=== PATIENT | female | born 1965 ===

== ENCOUNTER 2021-11-28 01:46 | Outpatient (CLI) | payer OTHER, SELFPAY ==
--- OUTSIDE RECORDS SUMMARY | 2021-11-28 01:50 | XMS_ITS | Clinical Summary ---
:1965 Author Organization [facility] Address [address] [place] [address] Care Team Providers Name Role Phone Ajay Castaneda PA-C Primary Care Provider Allergies No known active allergies Medications Medication Sig Dispensed Refills Start Date End Date Status traZODone (DESYREL) 50 Take 1 Tablet by 90 Tablet 4 08/29/2021 Active mg tablet mouth at bedtime. Active Problems Problem Noted Date Mass of uterus 08/30/2021 Overview: Identified on [place] [facility] [place]. Likely fibroid, but U/S eval was advised to confirm. Ultrasound confirmed fibroid in August. Mass of soft tissue of pelvis 08/30/2021 Overview: From [facility] [place], 2019: ..... 2.2 x 2.9 cm irregular, predomina ntly STIR hyperintense lesion centered in the subcutaneous fat overlying the posterior superior aspect of the right buttocks. This finding is n ot included in the imaged anatomy on any of the other acquired sequences of today 's study. As such, this finding is incompletely evaluated. Possible differe ntial considerations include focally inflamed fat, but a neoplastic lesion ca nnot be excluded based on this appearance. Dedicated MR with and withou t contrast, with inclusion of chemical shift imaging, is recommended for furthe r characterization. Chronic bilateral low back pain 08/30/2021 Low ferritin level 09/13/2020 Overview: Borderline low ferritin. Leukopenia. Con stitutional symptoms.--- Plan: Discuss at appointment in August,, consider iron supplementation Chronic pain syndrome 07/04/2019 Pain in both upper extremities 04/07/2019 Primary hypercoagulable state ([facility]) 02/03/2018 Overview: -factor V Leiden homozygosity and elevat ed D-dimer (285) with FH thrombosis and FVL in her mother. Full thrombosis panel other than prothrombin mutation (no coverage) negative. -no prior hx VTE -Needs low dose anticoagulation to preve nt thrombosis in risk settings in the future, such as surgery, trauma, hospital stay or immobility. We are always happy to help plan treatment in these instances. I advised the patient to inform us in a dvance of any elective surgery where this might be needed. 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 Ken[facility] pe[facility] 08/29/2021 Hospital Encounter Radiology Screening mammogram, encounter for 08/29/2021 Office Visit General Internal Ajay Castaneda, Mass of s oft tissue of pelvis (Primary Dx); Medicine PA-C Chronic bilater al low back pain, unspecified whether sciatica present 08/28/2021 Refill General Internal Ajay Castaneda Medicatio ns Refill Medicine PAAnabela from Last 3 Months Immunizations Name Administration Dates Next Due Covid-19 mRNA Vaccine (PFIZER COVID-19) PF 0.3 ml IM 021, 06/27/2020 (12 yrs+) Influenza Vaccine =>4yo Split IM 10/23/2016 Influenza Vaccine Quad (AFLURIA) PF 0.5 ml IM (3 02/18/2016 yrs+) Influenza Vaccine Quad (FLUZONE) MDV w/preserv 0.5 ml 2019 IM (6 mos+) Influenza Vaccine Quad PF 0.5 ml IM (6 mos+) 01/28/2018 Tdap (BOOSTRIX) Vaccine =>7YO IM 11/26/2017 Surgical History Surgery Date Site/Laterality Comments INTERSTIM to low back for bladder incontinence; co cecile out next month KIDNEY STONE SURGERY 10/23/2017 - 11/21/2017 BREAST FNA Bilateral Medical History Medical History Date Comments Raynaud phenomenon 10/29/2017 Frequent UTI 10/29/2017 Post herpetic neuralgia Chronic abdominal pain Factor V Leiden ([facility]) ([facility]) 10/29/2017 homozygo te. FH VTE Hypertension Primary hypercoagulable state ([facility]) 02/03/2018 -factor V Leiden homozygosity and ([facility]) elevated D-dimer (28 5) with FH thrombosis and FVL i n her mother. Full thrombosis pane l other than prothrombin mutation (no coverage) negative. -no prior hx VTE Family History Medical History Relation Name Comments Ulcerative Colitis Brother Clotting Disorder Daughter Factor V Leide n Clotting Disorder Daughter Factor V Leide n *Other(comment) Father raynauds Arthritis-Osteo Father Lung Cancer Father Cancer Maternal Grandfather Asthma Maternal Grandmother Breast Cancer Maternal Grandmother in her 50s Arthritis-Osteo Mother Breast Cancer Mother Clotting Disorder Mother Factor V leide n and thrombosis Dementia Paternal Grandfather High Blood Pressure Paternal Grandfather Osteoporosis Paternal Grandmother Rheumatologic Disease Paternal Grandmother Relation Name Status Comments Brother Alive Daughter Alive Daughter Alive Father Maternal Grandfather Maternal Grandmother Mother Alive Paternal Grandfather Paternal Grandmother Social History Tobacco Use Types Packs/Day Years Used Date Never Smoker Smokeless Tobacco: Never Used Tobacco Cessation: Counseling Given: No Alcohol Use Standard Drinks/Week Comments Yes 0 (1 standard drink = 0.6 oz pure alcoho l) 1 wine with dinner Alcohol Habits Answer Date Recorded How often do you have a drink containing alcohol? Not asked How many drinks containing alcohol do you have on a Not aske d typical day when you are drinking? How often do you have six or more drinks on one Not asked occasion? Comment: 1 wine with dinner 01/24/2018 Food Insecurity Answer Date Recorded Within the past 12 months, you worried that your food would Never true 08/26/2018 run out before you got money to buy more. Within the past 12 months, the food you bought just didn't N ever true 08/26/2018 last and you didn't have money to get more. Sex Assigned at Date Recorded Female 03/12/2021 10:24 EST Obstetrics History Grav Para Term Pre Abrt (TAB) (SAB) (Ect) Mult Lvng Comments 4 4 Date Outcome GA Total Labor/2nd/3rd Weight Sex Delivery Anes PTL Vida A 1 A5 Name Clin Labor Para Para Para Para Last Filed Vital Signs Vital Sign Reading Time Taken Comments Blood Pressure 136/61 08/29/2021 0932 EDT Pulse 74 08/29/2021 0932 EDT Temperature 37.1 ??C (98.7 ??F) 08/29/2021 0932 EDT Respiratory Rate 16 08/29/2021 0932 EDT Oxygen Saturation 97% 02/07/2018 1520 EST Inhaled Oxygen Concentration - - Weight 55.8 kg (123 lb) 08/29/2021 0932 EDT Height 159.3 cm (5' 2.72) 09/16/2020 1001 EDT Body Mass Index 21.98 09/16/2020 1001 EDT Plan of Treatment Health Maintenance Due Date Last Done Comments Hepatitis C Screen 1965 HIV Screening 1982 Advance Directive 1984 Barium Enema (Colon Cancer 2011 Screening) Fecal Blood Test (Colon Cancer 2011 Screening) Fecal DNA (Colon Cancer Screening) 2011 Sigmoidoscopy (Colon Cancer 2011 Screening) Shingles Immunization (1 of 2) 2016 Social Determinants Of Health 08/27/2019 08/26/2018 ([facility]) Preventive Care Visit 11/27/2019 11/26/2017 COVID-19 Vaccine (3 - Booster for 09/12/2020 07/18/2020, Pfizer series) Behavioral Health Screen 05/08/2021 05/08/2020, 11/26/2017 Complete Blood Count (CBC) 09/11/2021 09/11/2020, 8, 03/23/2016, Additional history exists Comprehensive Metabolic Profile 09/11/2021 09/11/2020, 1204/2017, (CMP) 10/29/2017, Additional history exists Influenza Immunization (Adult) 11/22/2021 12/22/2019, 01/28, (#1) 10/23/2016, Additional history exists Cervical Cancer Screening 08/27/2023 08/26/2018, 02/18/2015 , 07/31/2011, Additional history exists Breast Cancer Screening 08/30/2023 08/29/2021, 03/25/2020, 03/06/2019, Additional history exists Lipid Profile Screening 09/11/2025 09/11/2020, 10/29/2017, (Cholesterol) 02/21/2015, Additional history exists Tetanus (Adult) Immunization 11/27/2027 11/26/2017 Colonoscopy (Colon Cancer 12/07/2027 12/06/2017 Screening) Colorectal Cancer Screening 12/07/2027 Pertussis (Adult) Immunization Completed 11/26/2017 Procedures Procedure Name Priority Date/Time Associated Diagnosis Comme nts MA BREAST SCREENING Routine 08/29/2021 13:05 Screening mammogr am, Results for this ARETHA BILATERAL EDT encounter for procedure ar e in the results section. from Last 3 Months Results MA BREAST SCREENING ARETHA BILATERAL (08/29/2021 13:05 EDT) Anatomical Region Laterality Modality Breast Bilateral Mammography Specimen Impressions [facility] - 08/29/2021 13:59 EDT Benign, no evidence of malignancy. RECOMMENDATION: Routine screening mammog lisa is recommended. Due to the patient's extreme breast dens ity, we recommend annual screening breast ultrasound in addition to mammography. OVERALL ASSESSMENT: BI-RADS 2: Benign These results will be communicated to yo ur patient via a lay letter from Radiology. If any additional imaging is needed we will contact your patient directly. I have personally reviewed the images an d the above interpretation and agree with the findings. Narrative [facility] - 08/29/2021 13:59 EDT MA BREAST SCREENING ARETHA BILATERAL ??08/29/2021 1:00 PM History: routine screening Comparison: ??Comparison has been made t o previous images. Technique: Routine 3D tomosynthesis with synthesized 2D views with CAD Breast Composition: The breast tissue is extremely dense, which lowers the sensitivity of mammography. Bilateral Breast Findings: ??No signific ant masses, calcifications or other abnormalities are seen. Stable calcifications bilaterally. Procedure Note Vira Uriarte MD - 08/29/2021 MA BREAST SCREENING ARETHA BILATERAL 022 1:00 PM History: routine screening Comparison: Comparison has been made to previous images. Technique: Routine 3D tomosynthesis with synthesized 2D views with CAD Breast Composition: The breast tissue is extremely dense, which lowers the sensitivity of mammography. Bilateral Breast Findings: No significan t masses, calcifications or other abnormalities are seen. Stable calcifications bilaterally. IMPRESSION Benign, no evidence of malignancy. RECOMMENDATION: Routine screening mammog lisa is recommended. Due to the patient's extreme breast dens ity, we recommend annual screening breast ultrasound in addition to mammography. OVERALL ASSESSMENT: BI-RADS 2: Benign These results will be communicated to yo ur patient via a lay letter from Radiology. If any additional imaging is needed we will contact your patient directly. I have personally reviewed the images an d the above interpretation and agree with the findings. Performing Organization Address City/State/ZIP Code Phon e Number [facility] from Last 3 Months Insurance Payer Benefit Plan / Subscriber ID Effective Dates Phone Addre ss Type Group [employer] [place] [employer] [id number] 2018-Present [address] [employer] [place] [id number] Heike Salguero Personal/Family Self 1965 [address]Home) [place] [address] Heike Salguero Personal/Family Self 1965 [address] [place] [address] Advance Directives For more information, please contact: [phone] Documents on File Type Date Recorded 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 Not Discussed Care Teams Asset Liability Analyst Relationship Specialty Start Date End Date Ajay Castaneda PA-C PCP - General Internal Medicine - Primary 07/31/20 [address] [place] [address]
--- OUTSIDE RECORDS SUMMARY | 2021-11-28 01:50 | XMS_ITS | Encounter Summary ---
:1965 Author Organization [facility] Address [address] [place] [address] Care Team Providers Name Role Phone Ajay Castaneda PA-C Primary Care Provider Reason for Referral PT/OT/ST (Routine/Next Available) - Closed Specialty Diagnoses / Procedures Referred By Contact Refer red To Contact Diagnoses Chronic low back pain, unspecified back pain laterality, unspecified whether sciatica present Ajay Castaneda PA-C [address] [place] [address] Referral ID Status Reason Start Date Expiration Date Visits V isits Requested Authorized [id number] Closed Specialty 10/12/2021 1 1 Services Required Question Answer Reason for Request: chronic low back pain Comments Please contact me at my office in [place] if you need more information about Heike's medical history, of if you n eed guidance on treatment of her back pain. Ajay [facility]OMON [address] [facility] [place]. [phone]. Reason for Visit Reason Onset Date Comments Referral Request 09/30/2021 Physical Therapy 09/30/2021 Encounter Details Date Type Department Care Team Description 09/30/2021 Telephone [facility] Ajay Castaneda Referra l Request; Adult Primary [facility] - [facility] [place] [address] [place], [place] [phone] Social History Tobacco Use Types Packs/Day Years Used Date Never Smoker Smokeless Tobacco: Never Used Alcohol Use Standard Drinks/Week Comments Yes 0 [...] at Date Recorded Female 03/12/2021 10:24 EST documented as of this encounter Functional Status Functional Status Response Date of Assessment Because of a physical, mental, or emotional condition, Yes 01/24/2018 does this person have difficulty doing errands alone such as visiting a doctor's office or shopping? Cognitive Status Response Date of Assessment Because of a physical, mental, or emotional condition, Yes 01/24/2018 does this person have serious difficulty concentrating, remembering, or making decisions? documented as of this encounter Miscellaneous Notes Telephone Encounter - Ajay Castaneda PA-C - 10/12/2021 1436 EDT I completed the PT order. Please mail to Heike as requested. Thanks AjayElectronthad signed by Ajay Castaneda PA-C at 10/12/2021 14:37 EDT Telephone Encounter - FrancisApple - 09/30/2021 1307 EDT Pt saw Ajay on 08.29.21. In his notes he said that he would order PT for the pt. She is not sure where she would like to go yet. She would like the referral mailed to her & she will take it to wherever she decides to go. Referral teed up in this encounter, if ok please complete & sign. PSS: When/if done please mail the referral to the pt. documented in this encounter Plan of Treatment Scheduled Referrals Name Type Priority Associated Order Schedule Diagnoses AMB CONS/FOLLOW Outpatient Routine/Next Chronic low back Expected : UP PHYSICAL Referral Available pain, unspecified 10/19/2021 THERAPY - back pain (Approximate), OUTSIDE OF laterality, Expires: NETWORK unspecified whether 10/01/19 23 sciatica present documented as of this encounter Visit Diagnoses Diagnosis Chronic low back pain, unspecified back pain laterality, unspecified whether sciatica present - Primary documented in this encounter Care Teams Overnight Babysitter Relationship Specialty Start Date End Date Ajay Castaneda PA-C PCP - General Internal Medicine - Primary 07/31/20 [address] [place] [phone] documented as of this encounter
--- OUTSIDE RECORDS SUMMARY | 2021-11-28 01:51 | XMS_ITS | Encounter Summary ---
:[address] [facility] Address [address] [place] [address] Care Team Providers Name Role Phone Ajay Castaneda PA-C Primary Care Provider Reason for Visit Reason Onset Date Comments Other 08/30/2021 Needs blood test at [facility]. Please send/fax lab orders to [facility] haritha ontact patient. Encounter Details Date Type Department Care Team Description 08/30/2021 Telephone [facility] Ajay Castaneda Other ( Needs blood test Adult Primary Care - [facility] at [facility]. [place] [address] Please send/fax lab [address] [place], [place] [phone] then contact patient.) [phone] Social History Tobacco Use Types Packs/Day Years [...] this encounter Miscellaneous Notes Telephone Encounter - Isatu Watt - 10/06/2021 1315 EDT Hi Ajay, Referral has been sent to ortho and labs sent as well. The referral for the MRI is still in the que.Did you want me to close it for now? I was denied by insurance and would require a peer to peer. Do you want to close it for now? Maybe ortho will be able to get an MRI if appropriate? elephone Encounter - Isatu Watt - 09/18/2021 1326 EDT Referral is still pending in referral que. PA has been denied for the MRI. Did you want to look intofurther or wait at this time. Also, the orthopedica referral was dependant on the referral as well. Hold/close for now or submit the ortho referral? elephone Encounter - Isatu Watt - 09/03/2021 0722 EDT Patient is aware we are working on prior auth. Mailed lab orders to patient as well PA has been denied. Letter in your mailbox for review and follow up elephone Encounter - Ajay Castaneda PA-C - 08/30/2021 1235 EDT I saw this patient at the office on August 29. She needs an MRI with contrast done at [facility]. I placed those orders. Before she gets the MRI, she will need blood test done, especially to check her kidney functions. I ordered those tests on August 30, to be done at end external site. The patient [place] near [place]. Please fax the labs to the [facility] lab so that she can get the tests donethere. Also, I suggest that we print and mail a copy of the orders to the patient so that she can take themwith her to the lab. Then, please call her or send her a [employer] message letting her know that the lab orders have been sent to [facility]. Thanks in advance, Ajay documented in this encounter Plan of Treatment Not on filedocumented as of this encounter Visit Diagnoses Not on filedocumented in this encounter Care Teams Deckhand Sponge Boat Relationship Specialty Start Date End Date Ajay Castaneda PA-C PCP - General Internal Medicine - Primary 07/31/20 [address] [place] [phone] documented as of this encounter
--- OUTSIDE RECORDS SUMMARY | 2021-11-28 01:51 | XMS_ITS | Encounter Summary ---
:1965 Author Organization [facility] Address [address] [place] [address] Care Team Providers Name Role Phone Rosalie Cannon PA-C Primary Care Provider Reason for Visit Reason Onset Date Comments Medications Refill 10/10/2020 Encounter Details Date Type Department Care Team Description 10/10/2020 Refill [facility] Adult Rosalie Cannon PA-C Medications Refill Primary Care - [facility] [address] [place] [phone] (Wo rk) Social History Tobacco Use Types Packs/Day Years [...] at Date Recorded Female 03/12/2021 10:24 EST COVID-19 Exposure Response Date Recorded In the last month, have you been in contact with No / Unsure 09/11/2020 8:23 EDT someone who was confirmed or suspected to have Coronavirus / COVID-19? documented as of this encounter Functional Status [...] making decisions? documented as of this encounter Ordered Prescriptions Prescription Sig Dispensed Refills Start Date End Date dextroamphetamine-amphetam Take 1 Tablet by 28 Tablet 0 11/14/2020 ine (ADDERALL) 15 mg mouth daily for 28 tablet days. Daily Max: 15 mg dextroamphetamine-amphetam Take 1 Tablet by 28 Tablet 0 12/12/2020 ine (ADDERALL) 15 mg mouth daily for 28 tablet days. Daily Max: 15 mg dextroamphetamine-amphetam Take 1 Tablet by 28 Tablet 0 01/03/2021 ine (ADDERALL) 15 mg mouth daily for 28 tablet days. Daily Max: 15 mg dextroamphetamine-amphetam Take 1 Tablet by 7 Tablet 0 10/10/2020 ine (ADDERALL) 15 mg mouth daily for 7 tablet days. Daily Max: 15 mg documented in this encounter Miscellaneous Notes Telephone Encounter - Rosalie Cannon PA-C - 10/11/2020 1058 EDT I reviewed records. We had meant to do controlled substance agreement at last visit, and may have done one, but it is not yet scanned into records. At next visit, will check again and do all necessary paperwork. Rosalie Speandrese Telephone Encounter - Marissa Howard RN - 10/10/2020 1353 EDT Pended next 3 mos for rosalie cannon starting 10/17 elephone Encounter - Marissa Howard RN - 10/10/2020 1149 EDT Call to pt States she would like refill done today or tomorrow. with rosalie being out today, she would like covering provider to send in 7 days of rx as last time she had issues getting rx filled when he was out pended for keyes Please send back to triage when signed and we will pend 3 mos supply for rosalie upon his return tomorrow, per pt request elephone Encounter - Gilda Goodson - 10/10/2020 0918 EDT Requested Prescriptions Pending Prescriptions Disp Refills ??? dextroamphetamine-amphetamine (ADDERALL) 15 mg tablet 28 Tablet 0 Sig: Take 1 Tablet by mouth daily for 28 days. Daily Max: 15 mg Patient requested 3 prescription sent for 3 months [facility] - [address] Confirmed Pharmacy? Yes Patient out of medication? Yes: Needs Refill Now Last Refill Date: 09/10/2020 Refills left? (explain exceptions requiring early refill) No Recent Visits Date Type Provider Dept 09/16/20 Office Visit Rosalie Cannon PA-C [facility] 08/05/20 Office Visit Rosalie Cannon PA-C [place] [facility] 05/08/20 Office Visit Mere Gonzales MD [facility] 04/25/20 Office Visit Zenobia Hawkins PA-C [place] [facility] Showing recent visits within past 540 days with a meds authorizing provider and meeting all other requirements Future Appointments Date Type Provider Dept 12/16/20 Appointment Rosalie Cannon PA-C [facility] Showing future appointments within next 150 days with a meds authorizing provider and meeting all other requirements Future appointment: Already Scheduled Gilda Goodson 10/10/2020 9:19 documented in this encounter Plan of Treatment Not on filedocumented as of this encounter Visit Diagnoses Not on filedocumented in this encounter Discontinued Medications Medication Sig Discontinue Reason Start Date End Date dextroamphetamine-amphet Take 1 Tablet by Reorder 09/10/2020 10/10/2020 amine (ADDERALL) 15 mg mouth daily for 28 tablet days. Daily Max: 15 mg dextroamphetamine-amphet Take 1 Tablet by Reorder 10/10/2020 10/10/2020 amine (ADDERALL) 15 mg mouth daily for 7 tablet days. Daily Max: 15 mg documented as of this encounter Care Teams Iron Worker Relationship Specialty Start Date End Date Rosalie Cannon PA-C PCP - General Internal Medicine - Primary 07/31/20 [address] [place] [phone] documented as of this encounter
--- OUTSIDE RECORDS SUMMARY | 2021-11-28 01:51 | XMS_ITS | Encounter Summary ---
:1965 Author Organization [facility] Address [address] [place] [address] Care Team Providers Name Role Phone Ajay Castaneda PA-C Primary Care Provider Reason for Visit Reason Onset Date Comments Medications Refill 08/06/2020 Encounter Details Date Type Department Care Team Description 08/06/2020 Refill [facility] Adult Ajay Castaneda PA-C Medications Refill [place] - [place] [address] [facility] [place] [phone] (Wo rk) Social History Tobacco Use Types [...] making decisions? documented as of this encounter Plan of Treatment Not on filedocumented as of this encounter Visit Diagnoses Not on filedocumented in this encounter Care Teams Assistant Boiler Operator Relationship Specialty Start Date End Date Ajay Castaneda PA-C PCP - General Internal Medicine - Primary 07/31/20 [address] [place] [phone] documented as of this encounter
--- OUTSIDE RECORDS SUMMARY | 2021-11-28 01:51 | XMS_ITS | Encounter Summary ---
:1965 Author Organization [facility] Address [address] [place] [address] Care Team Providers Name Role Phone Mere Gonzales MD Primary Care Provider Encounter Details Date Type Department Care Team Description 08/03/2019 Travel Social History Tobacco Use Types Packs/Day Years [...] been in contact with No / Unsure 08/03/2019 13:49 EDT someone who was confirmed or suspected [...] on filedocumented in this encounter Care Teams Resource Room Special Education Teacher Relationship Specialty Start Date End Date Mere Gonzales MD PCP - General 10/05/17 07/30/20 [address] [place] [phone] documented as of this encounter
--- OUTSIDE RECORDS SUMMARY | 2021-11-28 01:51 | XMS_ITS | Encounter Summary ---
:1965 Author Organization [facility] Address [address] [place] [address] Care Team Providers Name Role Phone Ajay Castaneda PA-C Primary Care Provider Encounter Details Date Type Department Care Team Description 09/11/2020 Phlebotomy Only [facility] ADHD, predominantly inattentive type; Laboratory Services - Hypert ension, unspecified type; [facility] Screening for blood disease; 0 [facility] Lipid screening; [place] [address] Other polyneuropathy; [phone] Chronic pain sy ndrome; Pain in both up per extremities; Chronic bilater al low back pain, unspecified whether sciatica present; Bilateral hip p ain Social History Tobacco Use Types Packs/Day Years [...] Not on filedocumented as of this encounter Procedures Procedure Name Priority Date/Time Associated Diagnosis Comme nts SPEP WITH Routine 09/11/2020 8:32 Other polyneuropathy Resu lts for this IMMUNOTYPING EDT procedure are i n PERFORMABLE the results section. LYME AB Routine 09/11/2020 8:32 Chronic pain syn drome Results for this EDT Pain in both upper procedure are in extremities the results Other polyneuropathy section . SED RATE Routine 09/11/2020 8:32 Chronic pain syn drome Results for this EDT Pain in both upper procedure are in extremities the results Bilateral hip pain section. COMPLETE BLOOD COUNT Routine 09/11/2020 8:32 ADHD, predominant ly Results for this EDT inattentive type procedure are in Hypertension, the results unspecified type section. Screening for blood disease SPEP WITH Routine 09/11/2020 8:32 Other polyneuropathy Resu lts for this IMMUNOTYPING EDT procedure are i n the results section. C REACTIVE PROTEIN Routine 09/11/2020 8:32 Chronic pain syndrome Results for this EDT Pain in both upper procedure are in extremities the results Other polyneurop athy section. Chronic bilateral low back pain, unspecified whether sciatica present PROTEIN, TOTAL Routine 09/11/2020 8:32 Other polyneuropathy EDT FERRITIN Routine 09/11/2020 8:32 Chronic pain syn drome Results for this EDT Pain in both upper procedure are in extremities the results Bilateral hip pain section. VITAMIN B12 Routine 09/11/2020 8:32 Other polyneuropathy Resu lts for this EDT procedure are i n the results section. CK Routine 09/11/2020 8:32 Chronic pain syn drome Results for this EDT Pain in both upper procedure are in extremities the results Chronic bilateral low sectio n. back pain, unspecified whether sciatica present LIPID PROFILE Routine 09/11/2020 8:32 Lipid screening Results for this (INCLUDES EDT procedure are i n CHOLESTEROL, the results TRIGLYCERIDES, HDL, section. LDL) COMPREHENSIVE Routine 09/11/2020 8:32 ADHD, predominantly Resu lts for this METABOLIC PANEL (CMP) EDT inattentiv e type procedure are in Hypertension, the results unspecified type section. Screening for blood disease documented in this encounter Results SPEP WITH IMMUNOTYPING PERFORMABLE (09/11/2020 8:32 EDT) Albumin % 64.0 55.8 - 66.1 % [facility] Alpha-1 % 3.8 2.9 - 4.9 % [facility] Alpha-2 % 7.9 7.1 - 11.8 % [facility] Beta % 9.6 8.4 - 13.1 % [facility] Gamma % 14.7 11.1 - 18.8 % [facility] SPEP Comment No apparent [facility] monoclonal protein LABORATORY seen on serum SERVICES electrophoresisCom ment: See scanned/supplement chris report. Immunotyping, Current [facility] Serum Interpretation: LABORATORY Negative for SERVICES monoclonal immunoglobulins. Reviewed by: Obdulio Jordan MD 09/12/20 13:40 Total Protein 7.0 6.3 - 8.2 [facility] g/dL LABORATORY SERVICES Specimen Blood - Venous blood (substance) Narrative This result has an attachment that is no t available. Performing Organization Address City/State/ZIP Code Phon e Number [facility] [address] [place] [address] SERVICES PROTEIN, TOTAL (09/11/2020 8:32 EDT) Specimen Blood - Venous blood (substance) Performing Organization Address City/State/ZIP Code Phon e Number [facility] [address] [place] [address] SERVICES FERRITIN (09/11/2020 8:32 EDT) Pathologist Sig nature Ferritin 15 10 - 291 ng/mL [facility] ORY SERVICES Specimen Blood - Venous blood (substance) Performing Organization Address [facility]/ZIP Code Phon e Number [facility] [address] [place] [address] SERVICES SED. RATE:WESTERGREN (09/11/2020 8:32 EDT) Pathologist Sig nature Sed Rate 1 0 - 30 mm/hr [facility] Y SERVICES Specimen Blood - Venous blood (substance) Performing Organization Address [facility]/ZIP [facility] Phon e Number [facility] [address] [place] [address] SERVICES C REACTIVE PROTEIN (09/11/2020 8:32 EDT) Pathologist Sig nature C-Reactive Protein <7.0 <10.0 mg/L [facility] Specimen Blood - Venous blood (substance) Performing Organization Address [facility] Phon e Number [facility] [address] [place] [address] SERVICES LYME AB (09/11/2020 8:32 EDT) Pathologist Sig nature Lyme Ab Negative Negative [facility] SERVICES Specimen Blood - Venous blood (substance) Performing Organization Address [facility]/ZIP [facility] Phon e Number [facility] [address] [place] [address] SERVICES CK (09/11/2020 8:32 EDT) Pathologist Sig nature CK 103 30 - 135 U/L [facility] SERVICES Specimen Blood - Venous blood (substance) Performing Organization Address [facility]/ZIP [facility] Phon e Number [facility] [address] [place] [address] SERVICES (ABNORMAL) VITAMIN B12 (09/11/2020 8:32 EDT) Pathologist Sig nature Vitamin B12 920 (H) 211 - 911 pg/mL [facility] Specimen Blood - Venous blood (substance) Performing Organization Address [facility]/ZIP [facility] Phon e Number [facility] [address] [place] [address] SERVICES LIPID PROFILE (INCLUDES CHOLESTEROL, TRIGLYCERIDES, HDL, LDL) (09/11/2020 8:32 EDT) Cholesterol 211 See Note [facility] Comment: mg/dL [facility] Acceptable: ?<200 mg/dL SERVICES Borderline High: 200-239 mg/dL High: ?> or = 240 mg/dL HDL 86 See Note [facility] Comment: mg/dL [facility] Low: ? <40 mg/dL SERVICES Normal: ??40-60 mg/dL High: ?>60 mg/dL LDL, Calculated 113 See Note [facility] Comment: mg/dL [facility] Optimal: ? <100 mg/dL SERVICES Near Optimal: ?100-129 mg/dL Borderline High: 130-159 mg/dL High: ?160-189 mg/dL Very High: ? > or = 190 mg/dL Triglyceride 58 See Note [facility] Comment: mg/dL [facility] Normal: ? <150 mg/dL SERVICE S Borderline High: ??150 - 199 mg/dL High: ? 200 - 499 mg/dL Very High: ?> or = 500 mg/dL Chol/HDL Ratio 2.5Comment: No See Note [facility] reference range [facility] has been SERVICES established for CHOL/HDL ratio. Non HDL Cholesterol 125 See Note [facility] Comment: mg/dL [facility] Desirable: ?<130 mg/dL SERVICES Borderline High: ??130-159 mg/dL High: ? 160-189 mg/dL Very High: ?> or = 190 mg/dL Specimen Blood - Venous blood (substance) Performing Organization Address City/State/ZIP Code Phon e Number [facility] [address] [place] [address] SERVICES (ABNORMAL) COMPLETE BLOOD COUNT (09/11/2020 8:32 EDT) Pathologist Sig nature WBC 3.29 (L) 4.00 - 12.40 K/cmm [facility] RBC 4.81 3.86 - 5.04 M/cmm [facility] Hemoglobin 14.8 11.6 - 15.2 gm/dL [facility] HCT 44.3 34.9 - 44.4 % [facility] MCV 92 81 - 98 fl [facility] MCH 30.8 26.7 - 33.3 pg [facility] MCHC 33.4 32.1 - 35.9 gm/dL [facility] RDW-CV 12.7 <14.7 % [facility] RDW-SD 43.1 <50.4 fl [facility] PLT 321 141 - 377 K/cmm [facility] MPV 9.5 9.5 - 12.7 fl [facility] Specimen Blood - Venous blood (substance) Performing Organization Address [facility] Phon e Number [facility] [address] [place] [address] SERVICES COMPREHENSIVE METABOLIC PANEL (CMP) (09/11/2020 8:32 EDT) Sodium 139 136 - 145 [facility] mEq/L [facility] Potassium 4.8 3.5 - 5.0 [facility] mEq/L [facility] Chloride 101 96 - 110 [facility] mEq/L [facility] CO2 Total 30 22 - 32 mEq/L [facility] Glucose 83 70 - 100 [facility] mg/dL [facility] BUN 17 10 - 26 mg/dL [facility] Creatinine 0.67 0.52 - 1.04 [facility] mg/dL [facility] eGFR 100Comment: eGFR >60 [facility] calculated using mL/min/1.73m2 [facility] CKD-EPI equation SERVICES for non- Americans. Multiply eGFR by 1.16 for patients. Total Protein 7.0 6.3 - 8.2 [facility] g/dL [facility] Albumin 4.4 3.4 - 4.9 [facility] g/dL [facility] Alkaline 79 38 - 126 U/L [facility] Phosphatase [facility] AST 20 15 - 46 U/L [facility] ALT 13 <35 U/L [facility] Bilirubin, Total <0.5 <1.4 mg/dL [facility] Calcium 10.0 8.5 - 10.5 [facility] mg/dL [facility] Calculated Calcium 9.7 8.5 - 10.5 [facility] mg/dL [facility] Specimen Blood - Venous blood (substance) Performing Organization Address City/[facility]/ZIP Code Phon e Number [facility] [address] [place] [address] SERVICES documented in this encounter Visit Diagnoses Diagnosis ADHD, predominantly inattentive type Attention deficit disorder without menti on of hyperactivity Hypertension, unspecified type Screening for blood disease Screening for unspecified disorder of bl ood and blood-forming organs Lipid screening Screening for lipoid disorders Other polyneuropathy Chronic pain syndrome Pain in both upper extremities Chronic bilateral low back pain, unspeci fied whether sciatica present Bilateral hip pain Pain in joint, pelvic region and thigh documented in this encounter Care Teams Machine Icer Relationship Specialty Start Date End Date Ajay Castaneda PA-C PCP - General Internal Medicine - Primary 07/31/20 [address] [place] [phone] documented as of this encounter
--- OUTSIDE RECORDS SUMMARY | 2021-11-28 01:51 | XMS_ITS | Encounter Summary ---
:1965 Author Organization [facility] Address [address] [place] [address] Care Team Providers Name Role Phone Mere Gonzales MD Primary Care Provider Reason for Visit Reason Onset Date Comments Results 04/26/2020 Encounter Details Date Type Department Care Team Description 04/26/[address] [facility] Adult Zenobia Hawkins PA-C Results Primary Care - [place] [address] [place] [address] Social History Tobacco Use Types Packs/Day Years [...] Sig Dispensed Refills Start Date End Date metroNIDAZOLE (METROGEL) Place 37.5 mg 70 g 0 04/27/19 21 08/06/2020 0.75 % vaginal gel vaginally daily. documented in this encounter Miscellaneous Notes Telephone Encounter - Fidelina Bledsoe RN - 04/26/2020 1706 EST Left message requesting call back. Coravint sent as well. elephone Encounter - Zenobia Hawkins PA-C - 04/26/2020 1703 EST Please let her know the vaginitis culture came back negative for any yeast infection but it cannot rule out the presence of bacterial vaginosis. Bacterial vaginosis it is an overgrowth of the normal bacteria in the vagina that can cause vaginal discharge and discomfort. As discussed at her office visit it is not an STD. I have prescribed MetroGel that she can apply intravaginally at night for the next 5 nights. She should avoid any alcohol while taking this medication. There does not need to be a test of cure after treatment. documented in this encounter Plan of Treatment Not on filedocumented as of this encounter Visit Diagnoses Not on filedocumented in this encounter Care Teams Air And Hydronic Balancing Technician Relationship Specialty Start Date End Date Mere Gonzales MD PCP - General 10/05/17 07/30/[address] [place] [phone] documented as of this encounter
--- OUTSIDE RECORDS SUMMARY | 2021-11-28 01:51 | XMS_ITS | Encounter Summary ---
:1965 Author Organization [facility] Address [address] [place] [address] Care Team Providers Name Role Phone Mere Gonzales MD Primary Care Provider Reason for Referral Radiology Services (Routine) - Authorization Not Required Specialty Diagnoses / Procedures Referred By Contact Refer red To Contact Diagnoses Inconclusive mammogram Encounter for other screening for malignant neoplasm of breast Amaya Rand PA-C Procedures US ABUS BREAST SCREENING BILATERAL US BREAST SCREENING ONLY BILATERAL [address] [phone] Referral ID Status Reason Start Expiration Visits Visits Date Date Requested Authorized [id number] Authorization Not 08/11/2019 1 1 Required Reason for Visit Radiology Services (Routine) - Authorization Not Required Specialty Diagnoses / Procedures Referred By Contact Refer red To Contact Diagnoses Inconclusive mammogram Encounter for other screening for malignant neoplasm of breast Amaya Rand PA-C Procedures US ABUS BREAST SCREENING BILATERAL US BREAST SCREENING ONLY BILATERAL [address] [phone] Referral ID Status Reason Start Expiration Visits Visits Date Date Requested Authorized [id number] Authorization Not 08/11/2019 1 1 Required Encounter Details Date Type Department Care Team Description 03/25/2020 Hospital Encounter [facility] onclusive mammogram; Breast Imaging - [facility] Encou nter for other screening for malignant neoplasm of breast [address] [address] Social History Tobacco Use Types Packs/Day Years [...] been in contact with No / Unsure 03/25/2020 10:53 EST someone who was confirmed or suspected to [...] making decisions? documented as of this encounter Medications at Time of Discharge Medication Sig Dispensed Refills Start Date End Date amLODIPine (NORVASC) 5 mg TAKE ONE TABLET BY 90 Tab 3 08/29/2021 tablet MOUTH EVERY DAY ascorbic acid, vitamin C, Take 500 mg by 0 08/29/2021 (VITAMIN C) 500 mg tablet mouth daily. aspirin (ASPIRIN LOW DOSE) Take 81 mg by mouth 0 09/16/2020 81 mg EC tablet daily. cannabidiol, CBD, Take by mouth. CBD 0 04/25/2020 (CANNABIDIOL ORAL) Oil cyanocobalamin (VITAMIN Take 500 mcg by 0 08/29/2021 B-12) 500 mcg tablet mouth daily. dextroamphetamine-amphetam Take 1 Tab by mouth 28 Tab 0 01/25/2020 04/01/2020 ine (ADDERALL) 15 mg daily for 28 days. tablet Daily Max: 15 mg dextroamphetamine-amphetam Take 1 Tab by mouth 28 Tab 0 08/18/2019 04/03/2020 ine (ADDERALL) 15 mg daily for 28 days. tablet Daily Max: 15 mg ergocalciferol, vitamin Take by mouth. 0 08/05/2020 D2, (VITAMIN D ORAL) gabapentin (NEURONTIN) 300 Take 1 Cap by mouth 270 Cap 3 05/09/2019 04/25/2020 mg capsule every morning AND 2 Caps at bedtime. hydrOXYzine (ATARAX) 25 mg Take 1-2 tabs BID 180 Tab 3 01/03/2021 tablet prn itching or anxiety magnesium oxide (MAG-OX) Take 400 mg by 0 08/05/2020 400 mg (241.3 mg mouth daily. magnesium) tablet oxybutynin (DITROPAN-XL) 5 TAKE ONE TABLET BY 90 Tab 3 0 09/18/2019 09/16/2020 mg CR tablet MOUTH EVERY DAY traZODone (DESYREL) 50 mg TAKE ONE TABLET BY 90 Tab 0 06/26/2020 tablet MOUTH AT BEDTIME venlafaxine (EFFEXOR-XR) TAKE ONE CAPSULE BY 90 Cap 0 05/08/2020 37.5 mg XR capsule MOUTH EVERY DAY documented as of this encounter Discharge Disposition Disposition Code Departure Means Destination Home or Self Care documented in this encounter Plan of Treatment Not on filedocumented as of this encounter Procedures Procedure Name Priority Date/Time Associated Diagnosis Comme nts US ABUS BREAST Routine 03/25/2020 11:45 Inconclusive Results f or this SCREENING BILATERAL EST mammogram procedure are in Encounter for other the resu lts screening for section. malignant neoplasm of breast documented in this encounter Results US ABUS BREAST SCREENING BILATERAL (03/25/2020 11:45 EST) Anatomical Region Laterality Modality Breast Bilateral Ultrasound Specimen Narrative [facility] - 03/25/2020 16:14 EST US ABUS BREAST SCREENING BILATERAL ??03/25/2020 10:45 AM Clinical History/Comments: Screening. ??Dense breast tissue on mamm ogram. Comparisons: Mammography most recently performed in J 2019 Technique: 3-D automated breast ultrasound was perf ormed using the 6-15 MHz GE Invenia ABUS device. All 4 quadrants and the subareolar regions were examined. These images and multiplanar reformats were reviewed on a dedicated workstation. Findings Right Breast: Background echotexture: Heterogeneous ba ckground echotexture No suspicious ultrasound findings are id entified. Findings Left Breast: Background echotexture: Heterogeneous ba ckground echotexture No suspicious ultrasound findings are id entified. Impression Right Breast: Negative, BI-RADS Category 1. Impression Left Breast: Negative, BI-RADS Category 1. Recommendation Bilateral Breasts: No specific sonographic evidence of rena gnancy in either breast. Annual screening mammography is recommended, which is currently due. The patient is actually due for bilateral diagnostic mammograms to f ollow calcifications in both breasts. We would recommend that this be scheduled shortly. Additionally, if ongoing supplemental whole breast screening ultrasound is desired, this could next be performed in March 2021. Overall Assessment: BI-RADS Category Assessment 1: Negative. The patient will be notified of her [address] [facility] imaging results via a lay letter from Radiology. ??Radiology will contact the patient directly regarding any findings which require additional imaging. Performing Organization Address City/State/ZIP Code Phon e Number [facility] documented in this encounter Visit Diagnoses Diagnosis Inconclusive mammogram Encounter for other screening for malign ant neoplasm of breast documented in this encounter Care Teams Asparagus Buncher Relationship Specialty Start Date End Date Mere Gonzales MD PCP - General 10/05/17 07/30/20 [address] [place] [phone] documented as of this encounter
--- OUTSIDE RECORDS SUMMARY | 2021-11-28 01:51 | XMS_ITS | Encounter Summary ---
:1965 Author Organization [facility] Address [address] [place] [address] Care Team Providers Name Role Phone Mere Gonzales MD Primary Care Provider Reason for Visit Reason Onset Date Comments Orders (Non Pre-visit) 11/09/2019 Encounter Details Date Type Department Care Team Description 11/09/2019 [facility]phone [facility] Sarika Brasher rs (Non Pre-visit) Imaging Mammography - [facility] [place] [address] [place], [place] [id number] Social History Tobacco Use Types Packs/Day Years [...] this encounter Miscellaneous Notes Telephone Encounter - Sarika Brasher - 11/09/2019 1201 EDT We attempted to contact this patient to schedule breast imaging ordered by Amaya Rand on 10/31, 11/05, and 11/07 and left her voicemail's to call us back. She has not done so. I sent Amaya Rand a message to [facility] and inform her that if patient wants to schedule all she needs to do is call [phone]. documented in this encounter Plan of Treatment Not on filedocumented as of this encounter Visit Diagnoses Not on filedocumented in this encounter Care Teams Bar Host Relationship Specialty Start Date End Date Mere Gonzales MD PCP - General 10/05/17 07/30/20 [address] [place] [phone] documented as of this encounter
--- OUTSIDE RECORDS SUMMARY | 2021-11-28 01:51 | XMS_ITS | Encounter Summary ---
:1965 Author Organization [facility] Address [address] [place] [address] Care Team Providers Name Role Phone Mere Gonzales MD Primary Care Provider Reason for Visit Reason Onset Date Comments Medications Refill 01/25/2020 Encounter Details Date Type Department Care Team Description 01/25/2020 Refill [facility] Adult Mere Gonzales, Medications Refill Primary Care - [place] HERNÁNDEZ [address] [place] [address] [place], [place] [phone] (Wo rk) Social History Tobacco Use Types [...] Start Date End Date dextroamphetamine-amphetam Take 1 Tab by mouth 28 Tab 0 01/25/2020 04/01/2020 ine (ADDERALL) 15 mg daily for 28 days. tablet Daily Max: 15 mg documented in this encounter Miscellaneous Notes Telephone Encounter - Marissa Howard RN - 01/25/2020 1135 EST Last seen by dr gonzales on 07/04/19 rx pended Telephone Encounter - Fidelina Salas - 01/25/2020 1042 EST dextroamphetamine-amphetamine (ADDERALL) 15 mg tablet Dispense Quantity: 28 Tab Refills: 0 ?? Sig: Take 1 Tab by mouth daily for 28 days. ??Daily Max: 15 mg [facility] - [address] Confirmed Pharmacy? Yes Patient out of medication? No, but will be tomorrow Last Refill Date: 09.15.19 Refills left? (explain exceptions requiring early refill) No Recent Visits Date Type Provider Dept 02/20/19 Office Visit Mere Gonzales MD [facility] 11/18/18 Office Visit Mere Gonzales MD [facility] 09/21/18 Office Visit Mere Gonzales MD [facility] 08/26/18 Office Visit Mere Gonzales MD [facility] Showing recent visits within past 540 days with a meds authorizing provider and meeting all other requirements Future Appointments Date Type Provider Dept 05/08/20 Appointment Mere Gonzales MD [facility]3] Care Showing future appointments within next 150 days with a meds authorizing provider and meeting all other requirements Future appointment: Scheduled Today for fu. Fidelina Salas 01/25/2020 10:45 documented in this encounter Plan of Treatment Not on filedocumented as of this encounter Visit Diagnoses Not on filedocumented in this encounter Discontinued Medications Medication Sig Discontinue Reason Start Date End Date dextroamphetamine-ampheta Take 1 Tab by mouth Reorder 09/15/19 20 01/25/2020 mine (ADDERALL) 15 mg daily for 28 days. tablet Daily Max: 15 mg documented as of this encounter Care Teams Power Plant Technician Relationship Specialty Start Date End Date Mere Gonzales MD PCP - General 10/05/17 07/30/20 [address] [place] [phone] documented as of this encounter
--- OUTSIDE RECORDS SUMMARY | 2021-11-28 01:51 | XMS_ITS | Encounter Summary ---
:1965 Author Organization [facility] Address [address] [place] [address] Care Team Providers Name Role Phone Mere Gonzales MD Primary Care Provider Reason for Visit Reason Comments Memory Loss Referral (Routine) - Authorization Not Required Specialty Diagnoses / Procedures Referred By Contact Refer red To Contact Psychology Diagnoses Memory loss Mere Gonzales MD [address] [phone] Referral ID Status Reason Start Expiration Visits Visits Date Date Requested Authorized [id number] Authorization Specialty 2 2 Not Required Services 9 Required Encounter Details Date Type Department Care Team Description 08/31/2019 Office Visit [facility] Barbie Mcallister Memo ry loss (Primary Dx); Memory Program - R, PhD Attention deficit disorder (ADD) in [facility]; Medical Office [address] [facility] Depression, unspecified depression type; [place], [place] Anxiety [address] [facility] [phone] [place] [address] [phone] Social History Tobacco Use Types Packs/Day Years [...] been in contact with No / Unsure 08/07/2019 8:01 EDT someone who was confirmed or suspected [...] making decisions? documented as of this encounter Progress Notes Barbie Mcallister, PhD - 08/31/2019 0900 EDT [facility] Neuropsychological Evaluation Confidential The contents of this report are not to be released without written consent and contain privileged and confidential information that is subject to confidential privacy regulations such as the Health Insurance Portability and Accountability Act of 1996 (HIPAA). Persons with authorized access to this information are prohibited from disclosing it to any other alliance party without written release from the patient, or unless required to do so by law or regulation. If you are not the intended recipient, you are hereby notified that any disclosure, dissemination, saving, printing, copying or action taken in reliance of the contents of these documents, or any attachment, is strictly prohibited. This evaluation and report are intended for healthcare and/or medical purposes and is not intended for use in forensic and/or legal matters. Name: Heike Salgureo Age: 54 y.o. 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 Salguero including the clinical and voluntary nature of the evaluation, confidentiality and limits of confidentiality, review and use of electronic medical records, and health care providers/referring provider's access to this evaluation. RESULTS Test engagement and effort were consistent and results are interpreted as a valid reflection of current functioning. Objective and demographic details support average premorbid functioning. Cognitive weaknesses are noted for verbal delayed recall (story) with minimal benefits from cued discrimination,spatial learning and delayed recall and select executive functions involving novel problem-solving, responsiveness to feedback, inhibitory control and abstract reasoning. Performance was intact (normatively average or above) for the majority of domains assessed includingattention, working memory, information processing, language (fluency, picture naming), visuospatial/constructional abilities, verbal word list learning and recall, and executive functions involving mental set shifting, cognitive flexibility and mental sequencing. Fine motor speed and dexterity was bilaterally intact. IMPRESSIONS Performance on testing revealed largely intact abilities with scattered weaknesses for verbal and spatial memory and select executive functions. No pattern supporting an amnestic or neurodegenerative process is appreciated particularly in light of stable memory for a word list, improved retrieval for v erbal and spatial information with cues and functional independence managing basic and instrumental activities of daily living consistent with baseline. Ms. Salguero may benefit from routines and organizational systems to improve and streamline management of daily tasks. A consultation with occupational therapy can be helpful to establish such strategies. Additional recommendations are offered below. RECOMMENDATIONS Medical follow-up: Medical care is deferred to treatment providers. Occupational therapy: A consultation with occupational therapy can focus on establishing helpful compensatory strategies for improved daily functioning at home and in the workplace. Referrals for outpatient occupational therapy at the [facility] can be made by contacting [phone]. Emotional Support: Cognitive-behavioral therapy can be helpful to ensure ongoing mood stability and support with cognitive strategies. Cognitive strategies: ?? Finish one task at a time before starting another. ?? Use a notebook, white board, or audio recording to set daily goals. ?? Create checklists for routine tasks. ?? Use a calendar for tasks, events, and to-do list. Review the calendar in the morning and evening prior to bed for most optimal orientation. ?? Self talk and rehearsing information aloud can improve retention of details and information. ?? Take notes (e.g., notebook, smartphone). ?? Schedule time for breaks throughout the day. ?? Schedule more challenging tasks when cognition is sharpest (e.g., morning, evening). ?? For complex and multi-step tasks write out a list including all materials needed and the steps tocomplete the task efficiently. ?? Prepare all things in advance when possible. Procrastination can lead to forgetfulness, confusion, and increased error susceptibility. ?? Minimize distractions (e.g, TV, radio, phone) when communicating with others or working on tasks. ?? Create reminders (e.g., notepad by the phone, use of Post-It notes, on a dry erase board set up in a central location in the home). ?? Set alarms (e.g., phone) for important events (e.g., to take medications, daily tasks, birthdays). ?? Establish a central location (e.g., a large bowl placed on an entryway table) where these items (e.g., keys, wallet) are always placed. Alternative interventions: Deep breathing exercises, meditation, and yoga are helpful alternative therapies for improved mood, sleep, and mental clarity. Several smartphone applications are available and can be practiced at home for convenience. Cognitive exercises: Engaging in cognitively stimulating tasks help keep the brain active and alert.Beneficial brain activities include puzzles, reading, sodoku, crossword puzzles, and adult coloring books are some options. Lifestyle: Proper nutrition and physically active lifestyle including 30 minutes of moderate aerobicexercise per day (as medically approved) is recommended for overall health with added mood and sleepbenefits. Staying physically active can also be beneficial for cognitive acuity. A well balanced andnutritious diet minimizing processed foods has been show to positively affect mood, sleep, and cognitive functioning. Social engagement with family and friends is recommended for emotional support and mental stimulation. DIAGNOSIS R41.3 F98.8 F32.9 F41.9 ASSESSMENT INFORMATION The following information reported below was obtained from a clinical interview with Ms. Salguero ,collateral informants when available, a questionnaire completed by the patient, and review of medical records. Behavioral Observations Ms. Salguero arrived on time for a hybrid appointment with televideo use (neuropsychologist) and in-person testing (auto crane driver) completed over two days (insurance requirements). She was casually dressed, well groomed, alert and oriented. Hearing and vision were intact. Observed upper extremity mobility was unremarkable. Demeanor was friendly and open to the evaluation. She maintained consistent focus and appeared motivated throughout the visit. Language abilities were intact for expressive and receptive modalities. Thought processes were clear and goal directed. Mood was euthymic with normal affective range. Insight, awareness and judgement were intact. Presenting Concerns (patient report) Cognitive Cognitive difficulties include slowed information processing, changes in speech and language (less articulate, word retrieval), executive functions (organization, basic calculations, decision making, sequencing) and short-term memory loss with difficulty in new learning, retaining information particularly instructions and directions and more frequently misplacing her personal belongings. She has longstanding attention deficits that are exacerbated. Physical Over the past five years she has seen various specialists to address physical symptoms with of unknown etiology including reduced depth perception, difficulty walking, imbalance, numbness/tingling (extremities), low energy and strength and changes in fine motor ability. She also notes chronic pain (upper extremity, torso) and incontinence. Sleep is restorative with use of trazodone resting 5-6 hours per night. Appetite is stable with an overall healthy diet. Weight is stable. She is not currently physically active. Emotional She was prescribed an antidepressant two months ago which has helped stabilize symptoms of depression and anxiety. She is not currently receiving supportive treatment. She reported remote couples counseling and participation in a study for attention deficit disorder. She denied thoughts for self-harm, auditory/visual hallucinations and delusions, history of trauma and psychiatric hospitalization. Family psychiatric history is unremarkable. 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 She reportedly thrives on routine and feeling scatterbrained without a predictable routine. Driving for local distances is intact. She has not been lost though thinking about her destination has become more effortful. Cognitive changes have impacted her ability to manage workplace responsibilities consistently and efficiently primarily due to forgetfulness, distractibility, difficulty with new learning, misplacing belongings and difficulty with new learning particularly related to technology. MEDICAL HISTORY Positive for Raynaud's disease, hypertension, chronic pain syndrome, major depressive disorder and attention deficit hyperactivity disorder (inattentive type). Surgical procedures are notable for bladder stimulator placed and later removed. Neurologic history is remarkable for recent sports related concussion in high school with loss of consciousness unknown and return to baseline shortly thereafter. Family Medical History Alzheimer's disease/dementia (paternal grandfather) Dementia/memory loss, lung cancer (father???living age 81) Breast cancer (mother???living age 79), Ulcerative colitis (brother??? living age 57) Current Medications Amlodipine (5 mg), B12 (500 mcg), dextroamphetamine???amphetamine (15 mg), hydroxyzine (25 mg), trazodone (50 mg) and venlafaxine (37.5 mg XR). Substance use She reports 1???2 alcoholic beverages nightly. Tobacco and recreational substance use was denied. She reports a brief period of experimentation with marijuana in high school. She avoids caffeinated beverages and consumes only decaffeinated coffee daily. Family history of addiction was denied. Neuroimaging/procedures None available for review. PSYCHOSOCIAL HISTORY Ms. Salguero lives in [place], [place] with her of 10 years, son (20) and stepdaughtera portion of the time. She has two daughters (26, 24) and a son that was at in 1997. She is from a previous 19-year marriage in 2008. She graduated high school and attended two years of study in [employer]. She recalls struggling academically with focus, concentration and attention and described herself to be an average student with difficulty in mathematics. Despite the struggles she denies diagnosed learning disability (diagnosed with attention deficits in age 41), academic retention, or special education. 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 NEUROPSYCHOLOGICAL FINDINGS Ms. Salguero was administered a comprehensive battery of neuropsychological tests, evaluating a broadrange of brain-behavior functions. The performance on these measures is reviewed below. INTERPRETATIVE REYES Scores Mean (M) Standard deviation (SD) Impaired Standard score 100 15 <70 or >2SD below estimated premorbid functioning Scaled score 10 3 <4 or >2SD below estimated premorbid functioning t-score 50 10 <30 or >2SD below estimated premorbid functioning z-score 0 1 <-2.0 or >2SD below estimated premorbid functioning *Individual scores are not interpreted in isolation but rather in the context of information obtained in the clinical interview, medical records, reliable effort and behavioral observations. Normative data samples are utilized to convert raw scores into standardized scores for comparison to various peer group matched characteristics such as age, gender, education, and race (where applicable). Normative data are obtained from the following sources and indicated in the table by the first letter of the source. (P)= Publisher's software or manual (H)=Paola et. Al revised comprehensive norms 2004 (adjusted for age, gender, education, and race when necessary) (A)=[employer] (adjusted for age, gender, education, and race when necessary) (M) MOANS norms 1996. NEUROPSYCHOLOGICAL TESTS Score Standard Score Percentile Cognitive Screens Raw (P) MMSE-2 29 t-score= 55 --- Other Tests Raw (P)Dots 9 --- --- Estimated Premorbid Functioning Raw Standard Score %ile (A)TOPF 53 110 74.8 Attention, Working memory, Processing Speed Raw Scaled Score %ile (P)WAIS-IV Digit Span (8,5,6 ) 30 11 63 Coding 55 8 25 Symbol Search 24 7 16 --- Raw t-score %ile (H)TRAILS A 22?? 57 75 Language Raw Scaled Score %ile (P)WAIS-IV Vocabulary 35 9 37 (P)DKEFS Color Word --- --- --- Color Naming 22?? 13 84 Word Reading 18?? 13 84 --- Raw t-score %ile (H)Phonemic Fluency ( 15,20,24 ) 59 66 95 (H)Semantic Fluency 20 48 45 (H)BNT 59 64 93 Visuospatial Raw Scaled Score %ile (P)WAIS-IV Block Design 34 9 37 Matrix Reasoning 20 12 75 (P)Clock 14/15 n/a n/a (P)Pardeep Copy 32 --- 11-16 Memory Raw Scaled Score %ile (P)LM I 26 11 63 (P)LM II 14 7 16 (P)LM Recognition 21 --- 10-16 --- Raw t/z score %ile (P)CVLT-II Total 1-5 (8,12,13,13,15) 61 t-score =58 81 List B 6 z= 0.0 50 Short Free 14 z= 0.5 68 Short Cued 15 z= 1.0 84 Long Free 13 z= 0.0 50 Long Cued 13 z= 0.5 68 Repetitions 4 n/a --- Intrusions 2 n/a --- Total Hits 16 n/a --- Total False Positives 1 n/a --- Forced Choice 16 n/a n/a Raw t-score %ile (P)BVMT-R Total 1-3 (4,6,7) 17 37 10 Delayed 7 40 16 Recognition 6 n/a >16 % Retained 100 n/a >16 Executive Functions Raw Standard Score %ile (P)WCST --- --- --- Total Errors 46 84 14 Perseverative Responses 29 86 18 Perseverative Errors 26 85 16 % Concept. Level Responses 56 88 21 Categories Completed 5 --- 11-16 Failure to Maintain Set 1 n/a n/a Raw t-score %ile (H)Trails B 64?? 50 50 Raw Scaled score %ile (P)DKEFS Color Word --- --- --- Inhibition (4 ) 50?? 2 75 Inhibition/Switch (6) 80?? 9 37 (W)WAIS IV Similarities 17 6 9 Digit-Span Sequencing 9 11 63 Motor Raw t-score %ile (H)Pegboard: Dominant Hand 63?? 51 53 Non-Dominant Hand 78?? 43 25 Mood Raw (P)BDI - II 10 Minimal n/a (P)STAI State: 25 Stable n/a Trait: 35 Stable n/a Plan Ms. Salguero will follow-up with Dr. Gonzales. Should additional questions or concerns arise, this service can be contacted at [phone]. Billing Neurobehavioral Status Exam Total time= 68 minutes (1 unit of 33471 by neuropsychologist) Test Evaluation Services Total time= 88 minutes (1 unit of 91701 by neuropsychologist) Test Administration and Scoring Total time= 71 minutes (1 unit of 82037 and 1 unit(s) of 07316 by neuropsychologist) Total time= 223 minutes (1 unit of 20669 and 6 unit(s) of 13632 by auto crane driver) Barbie Mcallister, Ph.D. Psychologist-Doctorate documented in this encounter Plan of Treatment Not on filedocumented as of this encounter Visit Diagnoses Diagnosis Memory loss - Primary Attention deficit disorder (ADD) in adul t Depression, unspecified depression type Anxiety Anxiety state, unspecified documented in this encounter Care Teams Control Valve Mechanic Relationship Specialty Start Date End Date Mere Gonzales MD PCP - General 10/05/17 07/30/20 [address] [place] [phone] documented as of this encounter
--- OUTSIDE RECORDS SUMMARY | 2021-11-28 01:51 | XMS_ITS | Encounter Summary ---
:1965 Author Organization [facility] Address [address] [place] [address] Care Team Providers Name Role Phone Ajay Castaneda PA-C Primary Care Provider Reason for Visit Reason Onset Date Comments Medications Refill 08/28/2021 Encounter Details Date Type Department Care Team Description 08/28/2021 Refill [facility] Ajay Castaneda PA-C Medications Refill Primary Care - [place] [address] [place] [phone] (Wo rk) Social History Tobacco Use Types [...] encounter Miscellaneous Notes Telephone Encounter - Fidelina Salas - 08/28/2021 1448 EDT Requested Prescriptions Pending Prescriptions Disp Refills ??? traZODone (DESYREL) 50 mg tablet 90 Tablet 0 Sig: Take 1 Tablet by mouth at bedtime. [facility] - [address] Confirmed Pharmacy? Yes Patient out of medication? No Last Refill Date: 04.15.21 Refills left? (explain exceptions requiring early refill) No Recent Visits Date Type Provider Dept 01/03/21 Office Visit Ajay Castaneda PA-C [facility] 09/16/20 Office Visit Ajay Castaneda PA-C [facility] 08/05/20 Office Visit Ajay Castaneda PA-C [facility] 05/08/20 Office Visit Mere Gonzales MD [facility] 04/25/20 Office Visit Zenobia Hawkins PA-C [facility] Showing recent visits within past 540 days with a meds authorizing provider and meeting all other requirements Future Appointments Date Type Provider Dept 08/29/21 Appointment Ajay Castaneda PA-C [facility] Showing future appointments within next 150 days with a meds authorizing provider and meeting all other requirements Future appointment: Already Scheduled Fidelina Salas 08/28/2021 14:48 documented in this encounter Plan of Treatment Not on filedocumented as of this encounter Visit Diagnoses Not on filedocumented in this encounter Care Teams Scanner Operator Relationship Specialty Start Date End Date Ajay Castaneda PA-C PCP - General Internal Medicine - Primary 07/31/20 [address] [place] [phone] documented as of this encounter
--- OUTSIDE RECORDS SUMMARY | 2021-11-28 01:51 | XMS_ITS | Encounter Summary ---
:1965 Author Organization [facility] Address [address] [place] [address] Care Team Providers Name Role Phone Mere Gonzales MD Primary Care Provider Reason for Visit Reason Onset Date Comments Appointment Related 06/12/2020 Encounter Details Date Type Department Care Team Description 06/12/2020 Telephone [facility] Amaya Rand, Appointment Related Surgical Oncology - PA-C [address] [address] [place], [place] [address] (Wo rk) Social History Tobacco Use Types [...] this encounter Miscellaneous Notes Telephone Encounter - Macy Castano - 06/12/2020 1211 EDT LVM for pt. Requesting that she give us a call back to the [facility] to schedule her diagnostic mammo, prior to her f/u brck with Amaya Rand (this Wednesday06/17/2020) Macy Castano 06/12/2020 12:12 documented in this encounter Plan of Treatment Not on filedocumented as of this encounter Visit Diagnoses Not on filedocumented in this encounter Care Teams Family Resource Coordinator Relationship Specialty Start Date End Date Mere Gonzales MD PCP - General 10/05/17 07/30/20 [address] [place] [address] documented as of this encounter
--- OUTSIDE RECORDS SUMMARY | 2021-11-28 01:51 | XMS_ITS | Encounter Summary ---
:1965 Author Organization [facility] Address [address] [place] [address] Care Team Providers Name Role Phone Mere Gonzales MD Primary Care Provider Ajay Castaneda PA-C Primary Care Provider Reason for Visit Reason Comments Other Encounter Details Date Type Department Care Team Description 06/24/2020 [facility] Adult Mere Day MD Other Primary Care - [address] [phone] (Wo rk) Social History Tobacco Use [...] Sig Dispensed Refills Start Date End Date traZODone (DESYREL) 50 mg TAKE ONE TABLET BY 90 Tab 3 04/15/2021 tablet MOUTH AT BEDTIME documented in this encounter Miscellaneous Notes Telephone Encounter - Kacey Cannon - 06/25/2020 1650 EDT Requested Prescriptions Pending Prescriptions Disp Refills ??? traZODone (DESYREL) 50 mg tablet [Pharmacy Med Name: TRAZODONE 50 MG TABLET] 30 Tab 2 Sig: TAKE ONE TABLET BY MOUTH AT BEDTIME Pharmacy: [facility] Last Refill Date: 02/20/20 Last Visit Date: 05/08/20 Next Non-Acute Visit Date Scheduled with Care Team: 08/06/20 KACEY CANNON RN 06/25/2020 16:50 documented in this encounter Plan of Treatment Not on filedocumented as of this encounter Visit Diagnoses Not on filedocumented in this encounter Discontinued Medications Medication Sig Discontinue Reason Start Date End Date traZODone (DESYREL) 50 TAKE ONE TABLET BY 02/20/2020 06/26/2020 mg tablet MOUTH AT BEDTIME documented as of this encounter Care Teams Partnership Marketing Manager Relationship Specialty Start Date End Date Mere Gonzales MD PCP - General 10/05/17 07/30/20 [address] [place] [phone] Ajay Castaneda PA-C PCP - General Internal Medicine - Primary 07/31/20 [address] [place] [phone] documented as of this encounter
--- OUTSIDE RECORDS SUMMARY | 2021-11-28 01:51 | XMS_ITS | Encounter Summary ---
:1965 Author Organization [facility] Address [address] [place] [address] Care Team Providers Name Role Phone Mere Gonzales MD Primary Care Provider Reason for Visit Reason Comments Other Encounter Details Date Type Department Care Team Description 01/16/2020 Refill [facility] Adult Mere Day MD Other Primary Care - [address] [phone] (Wo rk) Social History Tobacco Use Types [...] (DESYREL) 50 mg TAKE ONE TABLET BY 30 Tab 0 02/20/2020 tablet MOUTH AT BEDTIME venlafaxine (EFFEXOR-XR) TAKE ONE CAPSULE BY 30 Cap 0 02/20/2020 37.5 mg XR capsule MOUTH EVERY DAY documented in this encounter Miscellaneous Notes Telephone Encounter - Barbie Salas - 01/20/2020 1650 EST Letter sent to schedule elephone Encounter - Barbie Chacon RN - 01/16/2020 1610 EST traZODone (DESYREL) 50 mg tablet [[id number]] ?? Order Details Dose, Route, Frequency: As Directed Dispense Quantity: 30 Tab Refills: 0 ?? Sig: TAKE ONE TABLET BY MOUTH AT BEDTIME ?? Start Date: 12/14/19 End Date: -- Written Date: 12/14/19 venlafaxine (EFFEXOR-XR) 37.5 mg XR capsule [[id number]] ?? Order Details Dose, Route, Frequency: As Directed Dispense Quantity: 30 Cap Refills: 0 ?? Sig: TAKE ONE CAPSULE BY MOUTH EVERY DAY ?? Start Date: 12/14/19 End Date: -- Written Date: 12/14/19 Next visit- none Last visit- 07/04/19 Approved rx's- routed to [facility] to schedule documented in this encounter Plan of Treatment Not on filedocumented as of this encounter Visit Diagnoses Not on filedocumented in this encounter Discontinued Medications Medication Sig Discontinue Reason Start Date End Date traZODone (DESYREL) 50 TAKE ONE TABLET BY 12/14/2019 01/16/2020 mg tablet MOUTH AT BEDTIME venlafaxine (EFFEXOR-XR) TAKE ONE CAPSULE BY 0 01/16/2020 37.5 mg XR capsule MOUTH EVERY DAY documented as of this encounter Care Teams Music Arranger Relationship Specialty Start Date End Date Mere Gonzales MD PCP - General 10/05/17 07/30/20 [address] [place] [phone] documented as of this encounter
--- OUTSIDE RECORDS SUMMARY | 2021-11-28 01:51 | XMS_ITS | Encounter Summary ---
:1965 Author Organization [facility] Address [address] [place] [address] Care Team Providers Name Role Phone Mere Gonzales MD Primary Care Provider Reason for Visit Reason Onset Date Comments Appointment Related 03/06/2020 Encounter Details Date Type Department Care Team Description 03/06/[address] [facility] Amaya Rand, Appointment Related Surgical Oncology - PA-C [address] [address] [place], [place] [phone] (Wo rk) Social History Tobacco [...] this encounter Miscellaneous Notes Telephone Encounter - Megha Martinez - 03/06/2020 1326 EST Patient transferred from breast imaging scheduling; request to reschedule appt w Amaya Rand to after the Mammo appt on 03/20/2020. Next availability for Amaya Rand is in May. Patient requested to schedule on 06/17/2020 @ 11:30 w Amaya Rand. Patient is aware. I will also put on wait list and send out appt reminder. Megha Martinez 03/06/2020 13:27 documented in this encounter Plan of Treatment Not on filedocumented as of this encounter Visit Diagnoses Not on filedocumented in this encounter Care Teams Warping Machine Operator Relationship Specialty Start Date End Date Mere Gonzales MD PCP - General 10/05/17 07/30/20 [address] [place] [phone] documented as of this encounter
--- OUTSIDE RECORDS SUMMARY | 2021-11-28 01:51 | XMS_ITS | Encounter Summary ---
:1965 Author Organization [facility] Address [address] [place] [address] Care Team Providers Name Role Phone Mere Gonzales MD Primary Care Provider Reason for Visit Reason Onset Date Comments Medications Refill 04/01/2020 Encounter Details Date Type Department Care Team Description 04/01/2020 Refill [facility] Adult Mere Gonzales, Medications Refill Primary Care - [place] [address] [place] [address] [place], [place] [phone] (Wo rk) Social History Tobacco Use [...] 1 Tab by mouth 28 Tab 0 04/03/2020 08/06/2020 ine (ADDERALL) 15 mg daily for 28 days. tablet Daily Max: 15 mg dextroamphetamine-amphetam Take 1 Tab by mouth 28 Tab 0 05/01/2020 05/29/2020 ine (ADDERALL) 15 mg daily for 28 days. tablet Daily Max: 15 mg dextroamphetamine-amphetam Take 1 Tab by mouth 28 Tab 0 05/29/2020 05/08/2020 ine (ADDERALL) 15 mg daily for 28 days. tablet Daily Max: 15 mg documented in this encounter Miscellaneous Notes Telephone Encounter - Marissa Juan RN - 04/04/2020 0854 EST Lm for pt that all rxes sent to pharmacy Call back with any questions MARISSA JUAN RN 04/04/2020 8:54 elephone Encounter - Marissa Juan RN - 04/03/2020 1047 EST Call to pharmacy Spoke with angel They have August rx on file for oxybutinin and will get it ready for pt Pended 3 mos of rxes for adderall for dr gonzales elephone Encounter - Gilda Goodson - 04/01/2020 1148 EST Requested Prescriptions Pending Prescriptions Disp Refills ??? oxybutynin (DITROPAN-XL) 5 mg CR tablet 90 Tab 3 Sig: Take 1 Tab by mouth daily. ??? dextroamphetamine-amphetamine (ADDERALL) 15 mg tablet 28 Tab 0 Sig: Take 1 Tab by mouth daily for 28 days. Daily Max: 15 mg Oxybutnin 5mg pharmacy has no record of 09/18/19 prescription. Patient requested 3 prescriptions be sent of the [id number] - [place], [place] - [address] [facility] Confirmed Pharmacy? Yes Patient out of medication? Yes: Needs Refill Now Last Refill Date: 09/18/19 and 01/25/20 Refills left? (explain exceptions requiring early refill) No Recent Visits Date Type Provider Dept 02/20/19 Office Visit Mere Gonzales MD [facility] 11/18/18 Office Visit Mere Gonzales MD [facility] Showing recent visits within past 540 days with a meds authorizing provider and meeting all other requirements Future Appointments Date Type Provider Dept 05/08/20 Appointment Mere Gonzales MD [facility] Showing future appointments within next 150 days with a meds authorizing provider and meeting all other requirements Future appointment: Already Scheduled Gilda Goodson 04/01/2020 11:49 documented in this encounter Plan of Treatment Not on filedocumented as of this encounter Visit Diagnoses Not on filedocumented in this encounter Discontinued Medications Medication Sig Discontinue Reason Start Date End Date dextroamphetamine-ampheta Take 1 Tab by mouth Reorder 01/25/20 20 04/01/2020 mine (ADDERALL) 15 mg daily for 28 days. tablet Daily Max: 15 mg dextroamphetamine-ampheta Take 1 Tab by mouth Reorder 08/18/19 20 04/03/2020 mine (ADDERALL) 15 mg daily for 28 days. tablet Daily Max: 15 mg documented as of this encounter Care Teams Binding Cutter Relationship Specialty Start Date End Date Mere Gonzales MD PCP - General 10/05/17 07/30/20 [address] [place] [phone] documented as of this encounter
--- OUTSIDE RECORDS SUMMARY | 2021-11-28 01:51 | XMS_ITS | Encounter Summary ---
:1965 Author Organization [facility] Address [address] [place] [address] Care Team Providers Name Role Phone Ajay Castaneda PA-C Primary Care Provider Reason for Visit Reason Onset Date Comments Medications Refill 09/09/2020 Encounter Details Date Type Department Care Team Description 09/09/2020 Refill [facility] Adult Ajay Castaneda PA-C Medications Refill Primary Care - [place] [address] [place] [phone] (Wo rk) Social History Tobacco Use Types [...] Sig Dispensed Refills Start Date End Date dextroamphetamine-ampheta Take 1 Tablet by 28 Tablet 0 08/2310/10/2020 mine (ADDERALL) 15 mg mouth daily for 28 tablet days. Daily Max: 15 mg omeprazole (PRILOSEC) 20 Take 1 capsule by 60 capsule 5 08/2309/16/2020 mg capsule mouth 2 times daily. documented in this encounter Miscellaneous Notes Telephone Encounter - Paola Mc - 09/10/2020 1523 EDT Spoke with patient to confirm that she is coming in for her appointment on 09/16/20 with DS. Pt will be here for the appointment. Pt will be able to complete all the consent and paperwork for her Adderall scripts at this visit. elephone Encounter - Ajay Castaneda PA-C - 09/10/2020 1519 EDT Due to state laws, Needs appt for controlled substance agreement before we can do more refills. elephone Encounter - Paola Mc - 09/10/2020 1508 EDT Pt was calling to follow up on her refill. She apologized as she would normally call and give more time for refill but there was a miscommunication with her new Provider and has been out of medication since Wednesday. Pt is asking that we send the rx EDIE as she is struggling without the medication. elephone Encounter - Apple Blanco - 09/09/2020 0930 EDT Requested Prescriptions Pending Prescriptions Disp Refills ??? omeprazole (PRILOSEC) 20 mg capsule 60 capsule 1 Sig: Take 1 capsule by mouth 2 times daily. dextroamphetamine-amphetamine (ADDERALL) 15 mg tablet [[id number]] ??DISCONTINUED ?? Order Details Dose: 15 mg Route: oral Frequency: DAILY Dispense Quantity: 28 Tablet Refills: 0 ?? Sig: Take 1 Tab by mouth daily for 28 days. ??Daily Max: 15 mg Patient not taking: Reported on 04/25/2020 ?? Start Date: 05/29/20 End Date: 05/08/20 (ordered for 28 doses) Discontinued by: Mere Gonzales MD on 05/08/2020 10:11 Reason: Reorder ?? Written Date: 04/03/20 Expiration Date: 07/02/20 Earliest Fill Date: 05/29/20 Pt does NOT want the extended release, she says Ajay accidentally ordered the XR version the last time it was ordered, pt says it keeps her up at night, needs the regular version, NOT XR. Pt would like three scripts for the next three months. [facility] - [address] Confirmed Pharmacy? Yes Patient out of medication? Yes: Needs Refill Now Last Refill Date: Adderall: 04.03.20 Omeprazole: 05.08.20 Refills left? (explain exceptions requiring early refill) No Recent Visits Date Type Provider Dept 08/05/20 Office Visit Ajay Castaneda PA-C [facility] 05/08/20 Office Visit Mere Gonzales MD [facility] 04/25/20 Office Visit Zenobia Hawkins PA-C [facility] Showing recent visits within past 540 days with a meds authorizing provider and meeting all other requirements Today's Visits Date Type Provider Dept 09/09/20 Appointment Ajay Castaneda PA-C [facility] Showing today's visits with a meds authorizing provider and meeting all other requirements Future Appointments Date Type Provider Dept 09/16/20 Appointment Ajay Castaneda PA-C [facility] Showing future appointments within next 150 days with a meds authorizing provider and meeting all other requirements Future appointment: Scheduled Today Apple Blanco 09/09/2020 9:39 documented in this encounter Plan of Treatment Not on filedocumented as of this encounter Visit Diagnoses Not on filedocumented in this encounter Discontinued Medications Medication Sig Discontinue Reason Start Date End Date omeprazole (PRILOSEC) 20 Take 1 Cap by mouth Reorder 09/09/2020 mg capsule 2 times daily. dextroamphetamine-amphet Take 1 Tablet by Reorder 08/06/2020 09/09/2020 amine (ADDERALL) 15 mg mouth daily for 28 tablet days. Daily Max: 15 mg documented as of this encounter Care Teams School Speech Therapist Relationship Specialty Start Date End Date Ajay Castaneda PA-C PCP - General Internal Medicine - Primary 07/31/[address] [place] [phone] documented as of this encounter
--- OUTSIDE RECORDS SUMMARY | 2021-11-28 01:51 | XMS_ITS | Encounter Summary ---
:1965 Author Organization [facility] Address [address] [place] [address] Care Team Providers Name Role Phone Mere Gonzales MD Primary Care Provider Reason for Visit Reason Onset Date Comments Complex Medical Problems 08/07/2019 Encounter Details Date Type Department Care Team Description 08/07/2019 Orders Only [facility] Amaya Rand se breast tissue Surgical Oncology - Rickie, [place] on mammogram (Primary Main [facility] [address] [place] [address] Dx) [address] [place], [place] [phone] [place] [address] [facility] Level [address] [place] [phone] (Wo rk) Social History Tobacco [...] as of this encounter Visit Diagnoses Diagnosis Dense breast tissue on mammogram - Prima ry documented in this encounter Care Teams Outside Sales Account Executive Relationship Specialty Start Date End Date Mere Gonzales MD PCP - General 10/05/17 07/30/[address] [place] [phone] documented as of this encounter
--- OUTSIDE RECORDS SUMMARY | 2021-11-28 01:51 | XMS_ITS | Encounter Summary ---
:1965 Author Organization [facility] Address [address] [place] [address] Care Team Providers Name Role Phone Ajay Castaneda PA-C Primary Care Provider Reason for Referral Consult (See Order Priority) - Closed Specialty Diagnoses / Procedures Referred By Contact Refer red To Contact Multidisciplinary Diagnoses Depression, unspecified depression type Anxiety Ajay Castaneda PA-C Community [facility] Team [address] [phone] [place] [address] Fax: Referral ID Status Reason Start Date Expiration Date Visits V isits Requested Authorized [id number] Closed Specialty 01/12/2021 1 1 Services Required Question Answer Reason for referral: [facility] Healt [facility]Behavioral Health Services Is patient aware referral is being made: Yes Specific considerations for Care Management Heike is open to seeing a counselor. Team: multiple stressors--relative ly new marriage, blended family, pl an to move to [facility] Reason for Visit Reason Comments Medication Management Fatigue feeling fatigue, tested posi tive COVID within last 2 weeks Encounter Details Date Type Department Care Team Description 01/03/2021 Office Visit [facility] Ajay Castaneda Low fer ritin level (Primary Dx); Adult Primary Care - [place] Depression, unspecified depression type; [place] [address] [address] Pain in both upper extremities; [address] [place] [place], ADHD, predominantly inattent [place] type; [place] [address] [place] [phone] Other fatigue; [phone] Anxiety (Work) Social History Tobacco Use Types Packs/Day Years [...] 10:24 EST documented as of this encounter Last Filed Vital Signs Vital Sign Reading Time Taken Comments Blood Pressure 106/68 01/03/2021 0829 EST Pulse 84 01/03/2021 0829 EST Temperature 36 ??C (96.8 ??F) 01/03/2021 0829 EST Respiratory Rate 14 01/03/2021 0829 EST Oxygen Saturation - - Inhaled Oxygen Concentration - - Weight 50.7 kg (111 lb 12.8 oz) 01/03/2021 0829 EST Height - - Body Mass Index 19.98 09/16/2020 1001 EDT documented in this encounter Functional Status Functional Status Response [...] Start Date End Date dextroamphetamine-amphetam Take 1 in the 60 Tablet 0 202002/26/2021 ine (ADDERALL) 5 mg tablet morning, and one at mid-day. (Ok to skip doses if not needed on some days). documented in this encounter Progress Notes Ajay Castaneda PA-C - 01/03/2021 0815 EST Subjective: Patient ID: Heike Salguero is an 55 y.o. female. Chief Complaint Patient presents with ??? Medication Management ??? 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 New marriage. Some wheeze since COVID infection Feels could benefit from counseling Wants to continue adderall 5 mg, just 1 or 2 daily Plans to schedule mammogram [facility] Stopped venlafaxine Patient Active Problem List Diagnosis ??? ADHD, predominantly inattentive type ??? Chronic abdominal pain ??? Constipation ??? Raynaud phenomenon ??? Frequent UTI ??? Moderate episode of recurrent major depressive disorder (HCC) ??? Overactive bladder ??? Hypertension ??? Primary hypercoagulable state (HCC-CMS) (HCC) ??? Pain in both upper extremities ??? Chronic pain syndrome ??? Low ferritin level No outpatient medications have been marked as taking for the 01/03/21 encounter (Office Visit) with Ajay Castaneda PA-C. ROS - See HPI Objective: LMP 01/07/2018 (Approximate) Physical Exam Physical Exam Vitals and nursing note reviewed. Constitutional: General: not in acute distress. Comfortable. Alert. Appearance: well-developed and well-nourished. Eyes: Extraocular Movements: EOM normal. Conjunctiva/sclera: Conjunctivae normal. Lungs: coarse breath sounds; very faint expt wheeze. Neurological: Mental Status: Alert and oriented to person, place, and time. Speech pattern normal. Recent and remote memory grossly intact throughout conversation. Psychiatric: Mood and Affect: Mood and affect normal. Behavior: Behavior normal. Thought Content: Thought content normal. Assessment / Plan: Multiple physical and psychological symptoms and concerns. Stress due to many recent life changes May benefit from continuring venlafaxine---difficult to stop when stressed and depressed. CHT referral. Recheck 6 weeks There are no diagnoses linked to this encounter. No orders of the defined types were placed in this encounter. No orders of the defined types were placed in this encounter. Ajay Castaneda PA-C Next appt at [place] Office: Visit date not found 01/03/2021 8:30 documented in this encounter Plan of Treatment Scheduled Referrals Name Type Priority Associated Order Schedule Diagnoses AMB CONS/FOLLOW UP Outpatient Routine/Next Depression, Expected: MEDICAL HOME CARE Referral Available unspecified 01/19/2021 MANAGEMENT depression type (Approximate), Anxiety Expires: 01/12/2022 documented as of this encounter Visit Diagnoses Diagnosis Low ferritin level - Primary Other nonspecific findings on examinatio n of blood Depression, unspecified depression type Pain in both upper extremities ADHD, predominantly inattentive type Attention deficit disorder without menti on of hyperactivity Other fatigue Anxiety Anxiety state, unspecified documented in this encounter Discontinued Medications Medication Sig Discontinue Reason Start Date End Date hydrOXYzine (ATARAX) 25 Take 1-2 tabs BID Therapy completed 020 01/03/2021 mg tablet prn itching or anxiety dextroamphetamine-amphet Take 1 Tablet by Duplicate order 01/03/2021 amine (ADDERALL) 15 mg mouth daily for 28 tablet days. Daily Max: 15 mg documented as of this encounter Care Teams Literacy Coach Relationship Specialty Start Date End Date Ajay Castaneda PA-C PCP - General Internal Medicine - Primary 07/31/[address] [place] [phone] documented as of this encounter
--- OUTSIDE RECORDS SUMMARY | 2021-11-28 01:51 | XMS_ITS | Encounter Summary ---
:1965 Author Organization [facility] Address [address] [place] [address] Care Team Providers Name Role Phone Mere Gonzales MD Primary Care Provider Reason for Visit Reason Onset Date Comments Complex Medical Problems 08/07/2019 Encounter Details Date Type Department Care Team Description 08/07/2019 Orders Only [facility] Amaya Rand history of Surgical Oncology - L, PA-C breast cancer [address] (Primary Dx) [address] [place], [place] [phone] [place] [address] [facility] [address] [place] [phone] (Wo rk) Social History Tobacco [...] as of this encounter Visit Diagnoses Diagnosis Family history of breast cancer - Primar y Family history of malignant neoplasm of breast documented in this encounter Care Teams Automotive Upholsterer Relationship Specialty Start Date End Date Mere Gonzales MD PCP - General 10/05/17 07/30/20 [address] [place] [phone] documented as of this encounter
--- OUTSIDE RECORDS SUMMARY | 2021-11-28 01:51 | XMS_ITS | Encounter Summary ---
:1965 Author Organization [facility] Address [address] [place] [address] Care Team Providers Name Role Phone Mere Gonzales MD Primary Care Provider Reason for Visit Reason Comments Memory Loss Referral (Routine) - Authorization Not Required Specialty Diagnoses / Procedures Referred By Contact Refer red To Contact Psychology Diagnoses Memory loss Mere Gonzales MD [address] [phone] Referral ID Status Reason Start Expiration Visits Visits Date Date Requested Authorized [id number] Authorization Specialty 2 2 Not Required Services 9 Required Encounter Details Date Type Department Care Team Description 08/24/[address] [facility] Barbie Mcallister Memo ry loss (Primary Dx); Memory Program - R, PhD Attention deficit disorder (ADD) [facility]; Medical Office [address] [facility] Depression, unspecified depression type; [place], [place] Anxiety [address] [facility] [phone] [place] [address] [phone] Social History Tobacco Use Types Packs/Day Years [...] encounter Progress Notes Barbie Mcallister, PhD - 08/24/2019 0900 EDT Heike Salguero was evaluated over two visits on 08/24/19 and 08/31/19. Neuropsychological test results and detailed billing can be found on visit dated 08/31/19. For any questions/concerns our department can be reached at [phone]. documented in this encounter Plan of Treatment Not on filedocumented as of this encounter Visit Diagnoses Diagnosis Memory loss - Primary Attention deficit disorder (ADD) in adul t Depression, unspecified depression type Anxiety Anxiety state, unspecified documented in this encounter Care Teams Hospital Mortician Relationship Specialty Start Date End Date Mere Gonzales MD PCP - General 10/05/17 07/30/20 [address] [place] [facility] [phone] documented as of this encounter
--- OUTSIDE RECORDS SUMMARY | 2021-11-28 01:51 | XMS_ITS | Encounter Summary ---
:1965 Author Organization [facility] Address [address] [place] [address] Care Team Providers Name Role Phone Mere Gonzales MD Primary Care Provider Reason for Visit Reason Onset Date Comments Appointment Related 04/17/2020 Encounter Details Date Type Department Care Team Description 04/17/2020 [facility] Breast Imaging Naif Dietrich Appointment Related Mammography - Main [address] [place] [address] Social History Tobacco Use Types Packs/Day Years [...] this encounter Miscellaneous Notes Telephone Encounter - Cristy Dietrich - 04/17/2020 1229 EST 04/17/20 left message for pt to call us back documented in this encounter Plan of Treatment Not on filedocumented as of this encounter Visit Diagnoses Not on filedocumented in this encounter Care Teams Candy Maker Helper Relationship Specialty Start Date End Date Mere Gonzales MD PCP - General 10/05/17 07/30/20 [address] [place] [address] documented as of this encounter
--- OUTSIDE RECORDS SUMMARY | 2021-11-28 01:51 | XMS_ITS | Encounter Summary ---
:1965 Author Organization [facility] Address [address] [place] [address] Care Team Providers Name Role Phone Ajay Castaneda PA-C Primary Care Provider Reason for Visit Reason Onset Date Comments Medication Management 08/06/2020 Encounter Details Date Type Department Care Team Description 08/06/2020 Telephone [facility] Adult Ajay Castaneda M edication Management Primary Care - [place] [address] [place] [address] [place], [place] [phone] Social History Tobacco Use Types Packs/Day Years [...] Take 1 Tablet by 28 Tablet 0 09/09/2020 ine (ADDERALL) 15 mg mouth daily for 28 tablet days. Daily Max: 15 mg documented in this encounter Miscellaneous Notes Telephone Encounter - Dinorah Grande MD - 08/06/2020 1001 EDT Reviewed meds. Signed pended. elephone Encounter - Isatu Watt - 08/06/2020 0920 EDT Reason for Call: Medication Management Summary/Symptoms: Adderall script was called in yesterday for patient but it was XR. patient does not use the XR and needs script altered. patient is out of medication. Pharmacist told her that if new script can come in by 11 they will take it to her directly [facility] [place] Onset and Duration: na Does the patient have a computer, laptop or smart phone with high speed & video capability? N/A If so, would they be interested in doing a video visit via Zoom? N/A Appointment Offered? No Isatu Watt 08/06/2020 9:20 documented in this encounter Plan of Treatment Not on filedocumented as of this encounter Visit Diagnoses Not on filedocumented in this encounter Discontinued Medications Medication Sig Discontinue Reason Start Date End Date dextroamphetamine-amphet Take 1 capsule by 08/05/2020 08/06/2020 amine (ADDERALL XR) 15 mouth daily. Daily mg XR capsule Max: 1 capsule dextroamphetamine-amphet Take 1 Tab by mouth Reorder 1 08/06/2020 amine (ADDERALL) 15 mg daily for 28 days. tablet Daily Max: 15 mg documented as of this encounter Care Teams Glazing Machine Operator Relationship Specialty Start Date End Date Ajay Castaneda PA-C PCP - General Internal Medicine - Primary 07/31/20 [address] [place] [phone] documented as of this encounter
--- OUTSIDE RECORDS SUMMARY | 2021-11-28 01:51 | XMS_ITS | Encounter Summary ---
:1965 Author Organization [facility] Address [address] [place] [address] Care Team Providers Name Role Phone Mere Gonzales MD Primary Care Provider Encounter Details Date Type Department Care Team Description 03/25/2020 Travel Social History Tobacco Use Types Packs/Day [...] on filedocumented in this encounter Care Teams Licensed Aircraft Maintenance Engineer Relationship Specialty Start Date End Date Mere Gonzales MD PCP - General 10/05/17 07/30/20 [address] [place] [phone] documented as of this encounter
--- OUTSIDE RECORDS SUMMARY | 2021-11-28 01:51 | XMS_ITS | Encounter Summary ---
:1965 Author Organization [facility] Address [address] [place] [address] Care Team Providers Name Role Phone Ajay Castaneda PA-C Primary Care Provider Reason for Referral Consult (See Order Priority) - New Request Specialty Diagnoses / Procedures Referred By Contact Refer red To Contact Diagnoses Mass of soft tissue of pelvis Chronic bilateral low back pain, unspecified whether sciatica present Ajay Castaneda PA-C [address] [place] [address] Referral ID Status Reason Start Expiration Visits Visits Date Date Requested Authorized [id number] New Request Specialty 08/30/2021 1 1 Services Required Question Answer Scheduling Comments (optional ? Please schedule the appointment with a describe specific scheduling needs if spine (low back ) specialist for AFTER the applicable): [facility] MRI that I ordered toda y is done. Reason for Request: low back pain. Mass lesion i n meghann-sacral tissues per MRI. Heike rosa id not f/u with specialists after the MRI. Practice Site (External Referral Only): [facility] spine cli alma, [place] location if possible (Heike lives ne ar [facility]). aboratory Services (Routine/Next Available) - New Request Specialty Diagnoses / Procedures Referred By Contact Refer red To Contact Diagnoses Mass of soft tissue of pelvis Ajay Castaneda PA-C Procedures CK [address] [place] [address] Referral ID Status Reason Start Date Expiration Date Visits V isits Requested Authorized [id number] New Request 08/30/2021 1 1 aboratory Services (Routine/Next Available) - New Request Specialty Diagnoses / Procedures Referred By Contact Refer red To Contact Diagnoses Mass of soft tissue of pelvis Ajay Castaneda PA-C Procedures COMPLETE BLOOD COUNT [address] [place] [address] Referral ID Status Reason Start Date Expiration Date Visits V isits Requested Authorized [id number] New Request 08/30/2021 1 1 aboratory Services (Routine/Next Available) - New Request Specialty Diagnoses / Procedures Referred By Contact Refer red To Contact Diagnoses Mass of soft tissue of pelvis Ajay Castaneda PA-C Procedures COMPREHENSIVE METABOLIC PANEL (CMP) [address] [place] [address] Referral ID Status Reason Start Date Expiration Date Visits V isits Requested Authorized [id number] New Request 08/30/2021 1 1 adiology Services (Routine/Next Available) - Denied Specialty Diagnoses / Procedures Referred By Contact Refer red To Contact Diagnoses Mass of soft tissue of pelvis Ajay Castaneda PA-C Procedures MR FEMALE PELVIS W WO CONTRAST 2 [place] [address] Referral ID Status Reason Start Date Expiration Date Visits Requ ested Visits Authorized [id number] Denied 08/30/2021 1 0 Reason for Visit Reason Comments Follow-up F/up - back pain, ADD, fatig ue Encounter Details Date Type Department Care Team Description 08/29/2021 Office Visit [facility] Ajay Castaneda, Mass of soft tissue of pelvis (Primary Dx); Adult Primary Care - PA-C Chronic bilateral low back pain, unspeci fied whether sciatica present [place] [address] [place], [place] [address] [place] [phone] Social History Tobacco Use Types Packs/Day Years [...] Rate 16 08/29/2021 0932 EDT Oxygen Saturation - - Inhaled Oxygen Concentration - - Weight 55.8 kg (123 lb) 08/29/2021 0932 EDT Height - - Body Mass Index 21.98 09/16/2020 1001 EDT documented in this encounter [...] Date End Date traZODone (DESYREL) 50 mg Take 1 Tablet by 90 Tablet 4 09/2021 tablet mouth at bedtime. documented in this encounter Progress Notes Ajay Castaneda PA-C - 08/29/2021 0969 EDT Subjective: Patient ID: Heike Salguero is an 56 y.o. female. Chief Complaint Patient presents with ??? Follow-up F/up - back pain, ADD, fatigue HPI Heike is following up on back pain, fatigue, and her general health. She has settled into her new near [facility]. She tells me she is overall feeling better, happier, and much less anxious than when she lived in the [facility]. She likes her new home. She says she still struggles with feeling tired, and with chronic low back pain. However, she stopped taking the ADD medicine. She really did not feel like she needed it anymore. She is not working outside of her home at this time, and does not feel like she needs the focus that the stimulant medication provided. She also went off the SNRI medication. Her anxiety is much less then it was. She is doing fine without the medicine. She also tells me that she still suffers from constant low back pain. She also says she often feels tired, but her physical ailments are much more manageable without the same degree of stress she had when she was living in the [facility]. She has questions about her prior low back imaging. She tells me that because of multiple stressors and health problems, that she did not follow-up withthe specialists who were previously working with her on her back problems. She recalls specifically telling Dr. Gonzales that she would hold off on additional evaluations and treatments until other issues in her life were sorted out. She says she is now ready to try some physical therapy, and perhapsmeet with a content specialist. Patient Active Problem List Diagnosis ??? ADHD, predominantly inattentive type ??? Chronic abdominal pain ??? Constipation ??? Raynaud phenomenon ??? Frequent UTI ??? Moderate episode of recurrent major depressive disorder (HCC) ??? Overactive bladder ??? Hypertension ??? Primary hypercoagulable state (HCC-CMS) (HCC) ??? Pain in both upper extremities ??? Chronic pain syndrome ??? Low ferritin level Outpatient Medications Marked as Taking for the 08/29/21 encounter (Office Visit) with Ajay Castaneda PA-C Medication Sig Dispense Refill ??? traZODone (DESYREL) 50 mg tablet Take 1 Tablet by mouth at bedtime. 90 Tablet 0 Copied from care everywhere report, 2019, from [facility]: Impression 1. ??No MR evidence of sacroiliitis. 2. ??Bilateral hip osteoarthropathy is seen to better advantage on prior radiographs. 3. 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 4. ??Insertional gluteal tendinosis bilaterally, right worse than left. There is question of superimposed low-grade partial tearing as well. 5. ??Unexpected findin.2 x 2.9 cm irregular, predominantly STIR hyperintense lesion centered in the subcutaneous fat overlying the posterior superior aspect of the right buttocks. This finding is not included in the imaged anatomy on any of the other acquired sequences of today's study. As such, this finding is incompletely evaluated. Possible differential considerations include focally inflamed fat, but a neoplastic lesion cannot be excluded based on this appearance. Dedicated MR with and without contrast, with inclusion of chemical shift imaging, is recommended for further characterization. 6. ??Unexpected finding: Partial visualization of large heterogeneous exophytic mass arising from the right wall of the uterus with multiple smaller uterine masses. Given that this finding is only partially visualized, it is incompletely evaluated. Statistically, this is most likely represents uterine fibroid, but further evaluation with pelvic ultrasound is recommended. 7. ??Unexpected finding: Collection of T2 hyperintense foci centered at the cervix. While this could represent a collection of small nabothian cysts, correlation with direct visualization on speculum exam to evaluate for suspicious cortical lesions is recommended. 8. ??Unexpected finding: Small amount of free fluid in the pelvis. While free fluid in the pelvis can be physiologic in a woman of reproductive age who was still having menstrual cycles, it is atypical for a postmenopausal woman have free fluid of the pelvis. This finding should be correlated with the patient's menopausal status. Thank you for letting us participate in the care of this patient. For questions regarding this report, please contact the number below. ? Electronically signed by: Teresa Archuleta [facility] ([phone]), at 08/15/2018 9:06 AM Narrative EXAMINATION: MRI SACROILIAC JOINTS WO CONTRAST CLINICAL HISTORY: concern for sacroilitis - inflammatory arhtiris with HLA b27 + looking for changes consitent with COMPARISON: Pelvis and bilateral hip radiographs 07/25/2018 TECHNIQUE: Routine noncontrast MRI of the sacroiliac joints was performed without IV contrast. FINDINGS: Bones and joints: No acute fracture. Disc desiccation and disc height loss, most pronounced at L5-S1. Facet arthropathy at L5-S1 and L4-5 with mild perifacet edema at L5-S1. No large hip joint effusions. Small marginal osteophytes of the bilateral hips was seen to better advantage on prior pelvic radiographs. No fluid distention of the sacroiliac joints. No periarticular erosions or edema around the SI??joints. Tendons and muscles: Bilateral insertional gluteal tendinosis, right worse than left with questionable of superimposed low-grade partial tearing (series 10, image 16 and 15). No high-grade disruption of the iliopsoas tendons. No high-grade??disruption of the origin of the bilateral hamstrings tendons. Symmetric bulk and signal of the visualized pelvic muscles. Other soft tissues: Irregular STIR hyperintense lesion centered in the subcutaneous fat overlying the posterior and superior??aspect of the right buttocks (series 10, image 31). This finding measures 2.2 x 2.9 cm in the coronal plane. There is a thin rim of STIR hypointense signal near the periphery. This finding is incompletely evaluated. Nonspecific small amount of pelvic free fluid. Partial visualization of a large heterogeneous, exophytic mass arising from the right wall of the uterus with multiple smaller uterine masses, presumably representing uterine fibroids. T2 hyperintense foci centered in the cervix are nonspecific and could represent small bulky and cyst, but correlation with direct visualization on speculum exam is recommended. Other Result Text Unexpected Finding Specimen Collected: ??? Date: 08/15/18 Received From: [facility] View Encounter ROS - See HPI Objective: BP 136/61 Pulse 74 Temp 37.1 ??C (98.7 ??F) (Tympanic) Resp 16 Wt 55.8 kg (123 lb) LMP 01/07/2018 (Approximate) BMI 21.98 kg/m?? Physical Exam Physical Exam Vitals and nursing note reviewed. Constitutional: General: not in acute distress. Comfortable. Alert. Appearance: well-developed and well-nourished. Eyes: Extraocular Movements: EOM normal. Conjunctiva/sclera: Conjunctivae normal. Neurological: Mental Status: Alert and oriented to person, place, and time. Speech pattern normal. Recent and remote memory grossly intact throughout conversation. Psychiatric: Mood and Affect: Mood and affect normal. Behavior: Behavior normal. Thought Content: Thought content normal. Assessment / Plan: Overall, Heike is doing well. She says she is much more content since her moved to the [facility]. Less stress. She continues to suffer from significant physical problems including low back pain, and chronic fatigue. She stopped her stimulant medication, and the SNRI, and she is glad that she may these decisions. She does not feel that they are necessary at this time. Her low back pain is really problematic for her. I spent approximately 15 minutes today searching through her records for the details of her back problems. I discovered the MRI reports from 2019 that were done at [facility], when she was under the care of Dr. Gonzales at this office. Heike remembers being told about the lesions seen on the MRI, and deciding to postpone further evaluation because she had so many other things going on in her life at that time. I concerned about her ongoing pain in the context of the lesions seen on the sacral MRI. I advised her to see a specialist at [facility]. I will order a new MRI with and without contrast of this area. Also, because her back pain is of uncertain origin, I encouraged her to work with a physical therapist to see if she derives any benefit from that. She will look into some options in her community in [place], and will let me know where she wants to go for PT so that I can place orders. She will need lab work before the MRI with contrast. Those orders have been placed. She is going for mammography today at [facility]. There are no diagnoses linked to this encounter. No orders of the defined types were placed in this encounter. No orders of the defined types were placed in this encounter. Ajay Castaneda PA-C Next appt at [facility]: Visit date not found 08/29/2021 9:35 documented in this encounter Plan of Treatment Scheduled Orders Name Type Priority Associated Diagnoses Order S vikki MR FEMALE PELVIS W WO Imaging Routine Mass of soft tissue of Expected: CONTRAST pelvis 08/30/2021, Exp ires: 03/02/2023 COMPREHENSIVE METABOLIC Lab Routine Mass of soft tiss ue of Expected: 08/30/2021 PANEL (CMP) pelvis (Approximate), Expires: 2022 COMPLETE BLOOD COUNT Lab Routine Mass of soft tissue of Expected: 08/30/2021 pelvis (Approximate), Expires: 2022 CK Lab Routine Mass of soft tissue of Expec nilam: 08/30/2021 pelvis (Approximate), Expires: 2022 Scheduled Referrals Name Type Priority Associated Diagnoses Order S vikki AMB CONS/FOLLOW UP Outpatient Referral Urgent Mass of soft ti ssue Expected: ORTHOPEDICS - of pelvis 09/01/2021 EXTERNAL Chronic bilateral (Approxima te), low back pain, Expires: unspecified whether 08/31/19 23 sciatica present documented as of this encounter Visit Diagnoses Diagnosis Mass of soft tissue of pelvis - Primary Chronic bilateral low back pain, unspeci fied whether sciatica present documented in this encounter Discontinued Medications Medication Sig Discontinue Reason Start Date End Date ascorbic acid, vitamin C, Take 500 mg by Patient Stopped 08/29/2021 (VITAMIN C) 500 mg tablet mouth daily. Taking cyanocobalamin (VITAMIN Take 500 mcg by Patient Stopped 08/29/2021 B-12) 500 mcg tablet mouth daily. Taking amLODIPine (NORVASC) 5 mg TAKE ONE TABLET Therapy completed 021 08/29/2021 tablet BY MOUTH EVERY DAY dextroamphetamine-ampheta Take 1 in the Therapy completed 08/29/2021 mine (ADDERALL) 5 mg morning, and one tablet at mid-day. (Ok to skip doses if not needed on some days). venlafaxine (EFFEXOR-XR) Take 1 capsule by Therapy completed 202008/29/2021 37.5 mg XR capsule mouth daily. ( dose change on 08/05/20) traZODone (DESYREL) 50 mg Take 1 Tablet by Reorder 04/15/2021 08/29/2021 tablet mouth at bedtime. documented as of this encounter Care Teams Outpatient Admitting Clerk Relationship Specialty Start Date End Date Aajy Castaneda PA-C PCP - General Internal Medicine - Primary 07/31/20 2 [place] [address] documented as of this encounter
--- OUTSIDE RECORDS SUMMARY | 2021-11-28 01:51 | XMS_ITS | Encounter Summary ---
:1965 Author Organization [facility] Address [address] [place] [address] Care Team Providers Name Role Phone Ajay Castaneda PA-C Primary Care Provider Reason for Referral Radiology Services (Routine/Next Available) - Authorization Not Required Specialty Diagnoses / Procedures Referred By Contact Refer red To Contact Diagnoses Screening mammogram, encounter for Ajay Castaneda PA-C [facility] Procedures MA BREAST SCREENING ARETH[facility]ILATERAL [address] [place] [address] Referral ID Status Reason Start Expiration Visits Visits Date Date Requested Authorized [id number] Authorization Not 08/29/2021 1 1 Required Reason for Visit Radiology Services (Routine/Next Available) - Authorization Not Required Specialty Diagnoses / Procedures Referred By Contact Refer red To Contact Diagnoses Screening mammogram, encounter for Ajay Castaneda PA-C [facility] Procedures MA BREAST SCREENING [place] [address] [place] [address] Referral ID Status Reason Start Expiration Visits Visits Date Date Requested Authorized [id number] Authorization Not 08/29/2021 1 1 Required Encounter Details Date Type Department Care Team Description 08/29/2021 [facility] Breast Screening mammogram, Imaging Mammography - encoun ter for Main Imogene [address] [place] [address] Social History Tobacco Use Types Packs/Day Years [...] 4 09/2021 tablet mouth at bedtime. documented as of this encounter Discharge Disposition Disposition Code Departure Means Destination Home or Self Care documented in this encounter Plan of Treatment Not on filedocumented as of this encounter Procedures Procedure Name Priority Date/Time Associated Diagnosis Comme nts ID BREAST SCREENING Routine 08/29/2021 13:05 Screening mammogr am, Results for this ARETHA BILATERAL EDT encounter for procedure ar e in the results section. documented in this encounter Results MA BREAST SCREENING ARETHA BILATERAL (08/29/2021 13:05 EDT) Anatomical Region Laterality Modality Breast Bilateral Mammography Specimen Impressions [facility] - 08/29/2021 13:59 EDT [...] interpretation and agree with the findings. Narrative [facility] - 08/29/2021 13:59 EDT [...] Organization Address City/State/ZIP Code Phon e Number [facility] documented in this encounter Visit Diagnoses Diagnosis Screening mammogram, encounter for documented in this encounter Care Teams Abalone Diver Relationship Specialty Start Date End Date Ajay Castaneda PA-C PCP - General Internal Medicine - Primary 07/31/20 [address] [place] [address] documented as of this encounter
--- OUTSIDE RECORDS SUMMARY | 2021-11-28 01:51 | XMS_ITS | Encounter Summary ---
:1965 Author Organization [facility] Address [address] [place] [address] Care Team Providers Name Role Phone Mere Gonzales MD Primary Care Provider Ajay Castaneda PA-C Primary Care Provider Reason for Visit Reason Comments Other Encounter Details Date Type Department Care Team Description 09/09/2019 [facility] Adult Mere Day MD Other Primary Care - [address] [phone] (Wo rk) Social History Tobacco Use [...] Sig Dispensed Refills Start Date End Date venlafaxine (EFFEXOR-XR) TAKE ONE CAPSULE BY 30 Cap 2 12/14/2019 37.5 mg XR capsule MOUTH EVERY DAY documented in this encounter Plan of Treatment Not on filedocumented as of this encounter Visit Diagnoses Not on filedocumented in this encounter Discontinued Medications Medication Sig Discontinue Reason Start Date End Date venlafaxine (EFFEXOR-XR) Take 1 Cap by mouth 0 09/09/2019 37.5 mg XR capsule daily. documented as of this encounter Care Teams Reel And Rewinder Operator Relationship Specialty Start Date End Date Mere Gonzales MD PCP - General 10/05/17 07/30/20 [address] [place] [address] Ajay Castaneda PA-C PCP - General Internal Medicine - Primary 07/31/20 2 [place] [phone] documented as of this encounter
--- OUTSIDE RECORDS SUMMARY | 2021-11-28 01:51 | XMS_ITS | Encounter Summary ---
:1965 Author Organization [facility] Address [address] [place] [address] Care Team Providers Name Role Phone Ajay Castaneda PA-C Primary Care Provider Encounter Details Date Type Department Care Team Description 08/05/2020 Orders Only [facility] Adult Ajay Castaneda PA-C Primary Care - [place] [address] [place] [phone] (Wo rk) Social History Tobacco Use Types [...] documented as of this encounter Progress Notes Ajay Castaneda PA-C - 08/05/2020 0818 EDT Subjective: Patient ID: Heike Salguero is an 55 y.o. female. No chief complaint on file. HPI Patient Active Problem List Diagnosis ??? ADHD, predominantly inattentive type ??? Chronic abdominal pain ??? Constipation ??? Raynaud phenomenon ??? Frequent UTI ??? Moderate episode of recurrent major depressive disorder (HCC-CMS) ??? Overactive bladder ??? Hypertension ??? Primary hypercoagulable state (HCC-CMS) ??? Pain in both upper extremities ??? Chronic pain syndrome No outpatient medications have been marked as taking for the 08/05/20 encounter (Orders Only) with Ajay Castaneda PA-C. ROS - See HPI Objective: LMP 01/07/2018 (Approximate) Physical Exam Assessment / Plan: There are no diagnoses linked to this encounter. Med Orders Placed This Visit and Additions to the Medication List Medications ??? gabapentin (NEURONTIN) 100 mg capsule Sig: Take 100 mg by mouth daily. ??? cholecalciferol, Vitamin D3, 125 mcg (5,000 unit) tablet Sig: Take by mouth daily. No orders of the defined types were placed in this encounter. Ajay Castaneda PA-C Next appt at [place] Office: 08/05/2020 08/05/2020 8:19 documented in this encounter Plan of Treatment Not on filedocumented as of this encounter Visit Diagnoses Not on filedocumented in this encounter Historical Medications This list may reflect changes made after this encounter. Medication Sig Dispensed Refills Start Date End Date cholecalciferol, Vitamin Take by mouth daily. 0 08/05/2020 D3, 125 mcg (5,000 unit) tablet gabapentin (NEURONTIN) Take 100 mg by mouth 0 08/05/2020 100 mg capsule daily. added in this encounter Care Teams Laborer Plumbing Relationship Specialty Start Date End Date Ajay Castaneda PA-C PCP - General Internal Medicine - Primary 07/31/20 [address] [place] [phone] documented as of this encounter
--- OUTSIDE RECORDS SUMMARY | 2021-11-28 01:51 | XMS_ITS | Encounter Summary ---
:1965 Author Organization [facility] Address [address] [place] [address] Care Team Providers Name Role Phone Ajay Castaneda PA-C Primary Care Provider Reason for Referral Radiology Services (Routine) - Authorization Not Required Specialty Diagnoses / Procedures Referred By Contact Refer red To Contact Diagnoses Right upper quadrant pain Ajay Castaneda PA-C Procedures US ABDOMEN LIMITED [address] [place] [address] Referral ID Status Reason Start Expiration Visits Visits Date Date Requested Authorized [id number] Authorization Not 09/22/2020 1 1 Required Reason for Visit Reason Comments Medication Management Fibromyalgia Encounter Details Date Type Department Care Team Description 09/16/2020 Office Visit [facility] Ajay Castaneda, Wendy f inding (Primary Dx); Adult Primary Care - [place] Right upper quadrant pain; [place] [address] Leukopenia, unspecified type; [address] [place], [place] [address] [place] [phone] Social History Tobacco Use Types Packs/Day Years Used Date Never Smoker Smokeless Tobacco: Never Used Tobacco Cessation: Counseling Given: Yes Alcohol Use Standard Drinks/Week Comments Yes 0 [...] / COVID-19? documented as of this encounter Last Filed Vital Signs Vital Sign Reading Time Taken Comments Blood Pressure 113/58 09/16/2020 1001 EDT Pulse 74 09/16/2020 1001 EDT Temperature 36.3 ??C (97.4 ??F) 09/16/2020 1001 EDT Respiratory Rate - - Oxygen Saturation - - Inhaled Oxygen Concentration - - Weight 53.3 kg (117 lb 8 oz) 09/16/2020 1001 EDT Height 159.3 cm (5' 2.72) 09/16/2020 1001 EDT Body Mass Index 21 09/16/2020 1001 EDT documented in this encounter [...] encounter Progress Notes Ajay Castaneda PA-C - 09/16/2020 0945 EDT Subjective: Patient ID: Heike Salguero is an 55 y.o. female. Chief Complaint Patient presents with ??? Medication Management ??? Fibromyalgia HPI The patient is following up for her chronic health problems. She tells me that she feels about the same overall as at her last visit. She has intermittent right upper quadrant pain sometimes after she eats food that contains fat. She wonders if she may have a gallstone. She plans to move to [facility] within the next few months, but plans to continue getting her health care here at this office. Patient Active Problem List Diagnosis ??? ADHD, predominantly inattentive type ??? Chronic abdominal pain ??? Constipation ??? Raynaud phenomenon ??? Frequent UTI ??? Moderate episode of recurrent major depressive disorder (HCC-CMS) ??? Overactive bladder ??? Hypertension ??? Primary hypercoagulable state (HCC-CMS) ??? Pain in both upper extremities ??? Chronic pain syndrome ??? Low ferritin level Outpatient Medications Marked as Taking for the 09/16/20 encounter (Office Visit) with Ajay Castaneda PA-C Medication Sig Dispense Refill ??? amLODIPine (NORVASC) 5 mg tablet TAKE ONE TABLET BY MOUTH EVERY DAY 90 Tab 3 ??? ascorbic acid, vitamin C, (VITAMIN C) 500 mg tablet Take 500 mg by mouth daily. ??? cyanocobalamin (VITAMIN B-12) 500 mcg tablet Take 500 mcg by mouth daily. ??? dextroamphetamine-amphetamine (ADDERALL) 15 mg tablet Take 1 Tablet by mouth daily for 28 days. Daily Max: 15 mg 28 Tablet 0 ??? hydrOXYzine (ATARAX) 25 mg tablet Take 1-2 tabs BID prn itching or anxiety 180 Tab 3 ??? omeprazole (PRILOSEC) 20 mg capsule Take 1 capsule by mouth 2 times daily. 60 capsule 5 ??? traZODone (DESYREL) 50 mg tablet TAKE ONE TABLET BY MOUTH AT BEDTIME 90 Tab 3 ??? venlafaxine (EFFEXOR-XR) 37.5 mg XR capsule Take 1 capsule by mouth daily. ( dose change on 08/05/20) 180 capsule 3 ROS - See HPI Objective: BP 113/58 (BP Cuff Location: Left arm, BP Patient Position: Sitting, BP Cuff Sizes: Adult, regular) Pulse 74 Temp 36.3 ??C (97.4 ??F) (Tympanic) Ht 159.3 cm (62.72) Wt 53.3 kg (117 lb 8 oz) LMP 01/07/2018 (Approximate) BMI 21.00 kg/m?? Physical Exam Physical Exam Vitals and nursing note reviewed. Constitutional: General: not in acute distress. Comfortable. Alert. Appearance: well-developed and well-nourished. Eyes: Extraocular Movements: EOM normal. Conjunctiva/sclera: Conjunctivae normal. Abdomen: NABS. Nontender. Neurological: Mental Status: Alert and oriented to person, place, and time. Speech pattern normal. Recent and remote memory grossly intact throughout conversation. Psychiatric: Mood and Affect: Mood and affect normal. Behavior: Behavior normal. Thought Content: Thought content normal. Assessment / Plan: The patient has intermittent right upper quadrant pain. Though an ultrasound was ordered in the spring by Dr. Gonzales, it was apparently not scheduled or completed. I have reordered the test since Dr. Gonzales has left this practice. Patient has a borderline low ferritin, and is often tired. She is mildly leukopenic. I will have herrecheck a CBC and ferritin in about 3 months. I encouraged her to increase consumption of iron rich foods, or try an OTC iron supplement every other day for about 2 months. There are no diagnoses linked to this encounter. No orders of the defined types were placed in this encounter. No orders of the defined types were placed in this encounter. Ajay Castaneda PA-C Next appt at [place] Office: Visit date not found 09/16/2020 10:05 documented in this encounter Plan of Treatment Not on filedocumented as of this encounter Results US ABDOMEN LIMITED (10/10/2020 8:10 EDT) Anatomical Region Laterality Modality Abdomen, Body Ultrasound Specimen Impressions [facility] - 10/10/2020 10:41 EDT 1. ??Redemonstration of small gallbladder polyp, no further evaluation indicated 2. ??No sonographic evidence of cholelit hiasis or cholecystitis 3. ??Previously identified left hepatic cyst is not seen on today's exam I have personally reviewed the images an d the above interpretation and agree with the findings. Narrative [facility] - 10/10/2020 10:41 EDT US ABDOMEN LIMITED ??10/10/2020 7:45 AM SIGNS AND SYMPTOMS/COMMENTS: Intermitten t right upper quadrant pain. ??Rule out cholelithiasis. History of gallbladder polyp and right nephrolithiasis. COMPARISON: Prior RUQ US 06/04/2008, mult iple prior abdominal CTs most recently 02/11/2018 TECHNIQUE: Grayscale and Doppler ultraso und evaluation of the right upper quadrant of the abdomen was performed. FINDINGS: PANCREAS: Visualized portions of the hea d, neck, body are normal LIVER: The liver measures 13.8 cm in maribell gth, which is normal. Normal echogenicity. Cyst within the left lobe of the liver seen on in 2008 is not identified on today's exam. RIGHT KIDNEY: The right kidney measures 10.9 cm in length. There is a 0.9 x 0.8 x 1.0 cm anechoic cyst with posterior acoustic enhancement and well-defined back wall in the upper pole. No sonographic evidence of hydronephrosis or shadowing stones. GALLBLADDER: The gallbladder wall measur es 2 mm in thickness, which is normal. No shadowing stones. There is an approximately 3 mm isoechoic polypoid structure projecting into the lumen from the gallbla dder wall without posterior acoustic enh ancement. The patient is nontender on exam. BILE DUCTS: The common duct measures 4 m m in diameter at the tato hepatis, which is normal. No sonographic evidence of intrahepatic bile duct dilation PROXIMAL ABDOMINAL AORTA / IVC: Normal Procedure Note Guru Leonard MD - 10/10/2020 US ABDOMEN LIMITED 10/10/2020 7:45 AM SIGNS AND SYMPTOMS/COMMENTS: Intermitten t right upper quadrant pain. Rule out cholelithiasis. History of gallbladder polyp and right nephrolithiasis. COMPARISON: Prior RUQ US 06/04/2008, mult iple prior abdominal CTs most recently 02/11/2018 TECHNIQUE: Grayscale and Doppler ultraso und evaluation of the right upper quadrant of the abdomen was performed. FINDINGS: PANCREAS: Visualized portions of the hea d, neck, body are normal LIVER: The liver measures 13.8 cm in maribell gth, which is normal. Normal echogenicity. Cyst within the left lobe of the liver seen on in 2008 is not identified on today's exam. RIGHT KIDNEY: The right kidney measures 10.9 cm in length. There is a 0.9 x 0.8 x 1.0 cm anechoic cyst with posterior acoustic enhancement and well-defined back wall in the upper pole. No sonographic evidence of hydronephrosis or shadowing stones. GALLBLADDER: The gallbladder wall measur es 2 mm in thickness, which is normal. No shadowing stones. There is an approximately 3 mm isoechoic polypoid structure projecting into the lumen from the gallbladder wall without posterior acoustic enhancement. The patient is nontender on exam. BILE DUCTS: The common duct measures 4 m m in diameter at the tato hepatis, which is normal. No sonographic evidence of intrahepatic bile duct dilation PROXIMAL ABDOMINAL AORTA / IVC: Normal IMPRESSION 1. Redemonstration of small gallbladder polyp, no further evaluation indicated 2. No sonographic evidence of cholelithi asis or cholecystitis 3. Previously identified left hepatic cy st is not seen on today's exam I have personally reviewed the images an d the above interpretation and agree with the findings. Performing Organization Address City/State/ZIP Code Phon e Number [facility] documented in this encounter Visit Diagnoses Diagnosis Urine finding - Primary Other nonspecific finding on examination of urine Right upper quadrant pain Abdominal pain, right upper quadrant Leukopenia, unspecified type Low ferritin Other nonspecific findings on examinatio n of blood Right upper quadrant pain Abdominal pain, right upper quadrant documented in this encounter Discontinued Medications Medication Sig Discontinue Reason Start Date End Date omeprazole (PRILOSEC) 20 Take 1 capsule by Therapy completed 202009/16/2020 mg capsule mouth 2 times daily. aspirin (ASPIRIN LOW Take 81 mg by mouth Therapy completed 09/16/2020 DOSE) 81 mg EC tablet daily. oxybutynin (DITROPAN-XL) TAKE ONE TABLET BY Therapy completed 09/1709/16/2020 5 mg CR tablet MOUTH EVERY DAY documented as of this encounter Care Teams Fountain Roller Assembler Relationship Specialty Start Date End Date Ajay Castaneda PA-C PCP - General Internal Medicine - Primary 07/31/20 [address] [place] [phone] documented as of this encounter
--- OUTSIDE RECORDS SUMMARY | 2021-11-28 01:51 | XMS_ITS | Encounter Summary ---
:1965 Author Organization [facility] Address [address] [place] [address] Care Team Providers Name Role Phone Ajay Castaneda PA-C Primary Care Provider Encounter Details Date Type Department Care Team Description 07/31/2020 Orders Only [facility] Adult Ajay Castaneda PA-C Primary Care - [place] [address] [place] [phone] (Wo rk) Social History Tobacco Use Types [...] on filedocumented in this encounter Care Teams Associate Publisher Relationship Specialty Start Date End Date Ajay Castaneda PA-C PCP - General Internal Medicine - Primary 07/31/20 [address] [place] [phone] documented as of this encounter
--- OUTSIDE RECORDS SUMMARY | 2021-11-28 01:51 | XMS_ITS | Encounter Summary ---
:1965 Author Organization [facility] Address [address] [place] [address] Care Team Providers Name Role Phone Ajay Castaneda PA-C Primary Care Provider Reason for Visit Reason Onset Date Comments Labs Only 07/31/2020 Encounter Details Date Type Department Care Team Description 07/31/2020 Orders Only [facility] Ajay Castaneda, ADHD, p redominantly inattentive type (Primary Dx); Adult Primary Care - [place] Hypertension, unspecified type; [place] [address] Lipid screening; [address] [address] [place], [place] [address] [place] [phone] Social History Tobacco Use Types Packs/Day [...] on filedocumented as of this encounter Results LIPID PROFILE (INCLUDES CHOLESTEROL, TRIGLYCERIDES, HDL, LDL) (09/11/2020 8:32 EDT) Cholesterol 211 See Note [facility] Comment: mg/dL [facility] Acceptable: ?<200 mg/dL SERVICES Borderline High: 200-239 mg/dL High: ?> or = 240 mg/dL HDL 86 See Note [facility] Comment: mg/dL [facility] Low: ? <40 mg/dL SERVICES Normal: ??40-60 mg/dL High: ?>60 mg/dL LDL, Calculated 113 See Note [facility] Comment: mg/dL [facility] Optimal: ? <100 mg/dL SERVICES Near Optimal: ?100-129 mg/dL Borderline High: 130-159 mg/dL High: ?160-189 mg/dL Very High: ? > or = 190 mg/dL Triglyceride 58 See Note [facility] Comment: mg/dL [facility] Normal: ? <150 mg/dL SERVICE S Borderline High: ??150 - 199 mg/dL High: ? 200 - 499 mg/dL Very High: ?> or = 500 mg/dL Chol/HDL Ratio 2.5Comment: No See Note [facility] reference range [facility] has been SERVICES established for CHOL/HDL ratio. Non HDL Cholesterol 125 See Note [facility] Comment: mg/dL [facility] Desirable: ?<130 mg/dL SERVICES Borderline High: ??130-159 mg/dL High: ? 160-189 mg/dL Very High: ?> or = 190 mg/dL Specimen Blood - Venous blood (substance) Performing Organization Address [facility] Phon e Number [facility] [address] [place] [address] SERVICES (ABNORMAL) COMPLETE BLOOD COUNT (09/11/2020 8:32 EDT) Pathologist Sig nature WBC 3.29 (L) 4.00 - 12.40 K/cmm [facility] SERVICES RBC 4.81 3.86 - 5.04 [facility] Hemoglobin 14.8 11.6 - 15.2 gm/dL [facility] SERVICES HCT 44.3 34.9 - 44.4 % [facility] SERVICES MCV 92 81 - 98 fl [facility] SERVICES MCH 30.8 26.7 - 33.3 pg [facility] SERVICES MCHC 33.4 32.1 - 35.9 gm/dL [facility] SERVICES RDW-CV 12.7 <14.7 % [facility] SERVICES RDW-SD 43.1 <50.4 fl [facility] SERVICES PLT 321 141 - 377 K/[facility] LABORATORY SERVICES MPV 9.5 9.5 - 12.7 fl [facility] SERVICES Specimen Blood - Venous blood (substance) Performing Organization Address [facility] Phon e Number [facility] [address] [place] [address] SERVICES COMPREHENSIVE METABOLIC PANEL (CMP) (09/11/2020 8:32 EDT) Sodium 139 136 - 145 [facility] mEq/L [facility] SERVICES Potassium 4.8 3.5 - 5.0 [facility] mEq/L [facility] SERVICES Chloride 101 96 - 110 [facility] mEq/L [place] [facility] CO2 Total 30 22 - 32 mEq/L [facility] SERVICES Glucose 83 70 - 100 [facility] mg/dL [facility] SERVICES BUN 17 10 - 26 mg/dL [facility] SERVICES Creatinine 0.67 0.52 - 1.04 [facility] mg/dL [facility] SERVICES eGFR 100Comment: eGFR >60 [facility] calculated using mL/min/1.73m2 [facility] CKD-EPI equation SERVICES for non- Americans. Multiply eGFR by 1.16 for patients. Total Protein 7.0 6.3 - 8.2 [facility] g/dL [facility] SERVICES Albumin 4.4 3.4 - 4.9 [facility] g/dL [place] [facility] SERVICES Alkaline 79 38 - 126 U/L [facility] Phosphatase [place] AST 20 15 - 46 U/L [facility] SERVICES ALT 13 <35 U/L [facility] SERVICES Bilirubin, Total <0.5 <1.4 mg/dL [facility] SERVICES Calcium 10.0 8.5 - 10.5 [facility] mg/dL [place] [facility] SERVICES Calculated Calcium 9.7 8.5 - 10.5 [facility] mg/dL [place] [facility] SERVICES Specimen Blood - Venous blood (substance) Performing Organization Address City/State/ZIP Code Phon e Number [facility] [address] [place] [address] SERVICES documented in this encounter Visit Diagnoses Diagnosis ADHD, predominantly inattentive type - P rimary Attention deficit disorder without menti on of hyperactivity Hypertension, unspecified type Lipid screening Screening for lipoid disorders Screening for blood disease Screening for unspecified disorder of bl ood and blood-forming organs documented in this encounter Care Teams [employer] Specialist Relationship Specialty Start Date End Date Ajay Csataneda PA-C PCP - General Internal Medicine - Primary 07/31/20 [address] [place] [phone] documented as of this encounter
--- OUTSIDE RECORDS SUMMARY | 2021-11-28 01:51 | XMS_ITS | Encounter Summary ---
:1965 Author Organization [facility] Address [address] [place] [address] Care Team Providers Name Role Phone Mere Gonzales MD Primary Care Provider Reason for Visit Reason Comments Other Encounter Details Date Type Department Care Team Description 12/14/2019 [facility] Adult Dinorah Grande MD Other Primary Care - [address] [phone] (Wo rk) Social History Tobacco Use Types [...] TAKE ONE CAPSULE BY 30 Cap 0 01/16/2020 37.5 mg XR capsule MOUTH EVERY DAY documented in this encounter Miscellaneous Notes Telephone Encounter - Barbie Chacon RN - 12/14/2019 1820 EDT Per other enc- pt is due for visit, other enc sent to [facility] to schedule; approved 30 day supply elephone Encounter - Barbie Salas - 12/14/2019 1534 EDT Requested Prescriptions Pending Prescriptions Disp Refills ??? venlafaxine (EFFEXOR-XR) 37.5 mg XR capsule [Pharmacy Med Name: VENLAFAXINE HCL ER 37.5 MG CAP] 30 Cap 2 Sig: TAKE ONE CAPSULE BY MOUTH EVERY DAY [id number] - [address] Confirmed Pharmacy? [facility] Patient out of medication? Unknown Last Refill Date: 09.09.19 Refills left? (explain exceptions requiring early refill) [...] and meeting all other requirements Future Appointments No visits were found meeting these conditions. Showing future appointments within next 150 days with a meds authorizing provider and meeting all other requirements Future appointment: Other not scheduled Barbie Salas 12/14/2019 15:34 documented in this encounter Plan of Treatment Not on filedocumented as of this encounter Visit Diagnoses Not on filedocumented in this encounter Discontinued Medications Medication Sig Discontinue Reason Start Date End Date venlafaxine (EFFEXOR-XR) TAKE ONE CAPSULE BY 0 12/14/2019 37.5 mg XR capsule MOUTH EVERY DAY documented as of this encounter Care Teams Tube Lancer Relationship Specialty Start Date End Date Mere Gonzales MD PCP - General 10/05/17 07/30/[address] [place] [phone] documented as of this encounter
--- OUTSIDE RECORDS SUMMARY | 2021-11-28 01:51 | XMS_ITS | Encounter Summary ---
:1965 Author Organization [facility] Address [address] [place] [address] Care Team Providers Name Role Phone Ajay Castaneda PA-C Primary Care Provider Reason for Referral Radiology Services (Routine) - Authorization Not Required Specialty Diagnoses / Procedures Referred By Contact Refer red To Contact Diagnoses Right upper quadrant pain Ajay Castaneda PA-C Procedures US ABDOMEN LIMITED [address] [place] [address] Referral ID Status Reason Start Expiration Visits Visits Date Date Requested Authorized [id number] Authorization Not 09/22/2020 1 1 Required Reason for Visit Radiology Services (Routine) - Authorization Not Required Specialty Diagnoses / Procedures Referred By Contact Refer red To Contact Diagnoses Right upper quadrant pain Ajay Castaneda PA-C Procedures US ABDOMEN LIMITED [address] [place] [address] Referral ID Status Reason Start Expiration Visits Visits Date Date Requested Authorized [id number] Authorization Not 09/22/2020 1 1 Required Encounter Details Date Type Department Care Team Description 10/10/2020 Hospital Encounter Seblesatish Fraser Moraimaou nd Right upper quadrant [address] [facility] [place], [place] [address] Social History Tobacco Use Types Packs/Day Years [...] (VITAMIN C) 500 mg tablet mouth daily. cyanocobalamin (VITAMIN Take 500 mcg by 0 08/29/2021 B-12) 500 mcg tablet mouth daily. dextroamphetamine-ampheta Take 1 Tablet by 28 Tablet 0 10/2412/12/2020 mine (ADDERALL) 15 mg mouth daily for 28 tablet days. Daily Max: 15 mg dextroamphetamine-ampheta Take 1 Tablet by 28 Tablet 0 08/2 07/2020 11/14/2020 mine (ADDERALL) 15 mg mouth daily for 28 tablet days. Daily Max: 15 mg dextroamphetamine-ampheta Take 1 Tablet by 28 Tablet 0 11/2301/03/2021 mine (ADDERALL) 15 mg mouth daily for 28 tablet days. Daily Max: 15 mg hydrOXYzine (ATARAX) 25 Take 1-2 tabs BID 180 Tab 3 05/2101/03/2021 mg tablet prn itching or anxiety traZODone (DESYREL) 50 mg TAKE ONE TABLET BY 90 Tab 3 04/15/2021 tablet MOUTH AT BEDTIME venlafaxine (EFFEXOR-XR) Take 1 capsule by 180 capsule 3 08/29/2021 37.5 mg XR capsule mouth daily. ( dose change on 08/05/20) documented as of this encounter Discharge Disposition Disposition Code Departure Means Destination Home or Self Care documented in this encounter Plan of Treatment Not on filedocumented as of this encounter Procedures Procedure Name Priority Date/Time Associated Diagnosis Comme nts US ABDOMEN LIMITED Routine 10/10/2020 8:10 EDT Right upper verenice drant Results for this pain procedure are i n the results section. documented in this encounter Results US ABDOMEN LIMITED (10/10/2020 8:10 EDT) Anatomical Region Laterality Modality Abdomen, Body Ultrasound Specimen Impressions [facility] - 10/10/2020 10:41 EDT 1. ??Redemonstration of small gallbladder polyp, no further evaluation indicated 2. ??No sonographic evidence of cholelit hiasis or cholecystitis 3. ??Previously identified left hepatic cyst is not seen on today's exam I have personally reviewed the images an d the above interpretation and agree with the findings. Narrative [facility] - 10/10/2020 10:41 EDT [...] Organization Address City/State/ZIP Code Phon e Number [facility] documented in this encounter Visit Diagnoses Diagnosis Right upper quadrant pain Abdominal pain, right upper quadrant documented in this encounter Care Teams Stepdown Nurse Relationship Specialty Start Date End Date Ajay Castaneda PA-C PCP - General Internal Medicine - Primary 07/31/20 [address] [place] [phone] documented as of this encounter
--- OUTSIDE RECORDS SUMMARY | 2021-11-28 01:51 | XMS_ITS | Encounter Summary ---
:1965 Author Organization [facility] Address [address] [place] [address] Care Team Providers Name Role Phone Mere Gonzales MD Primary Care Provider Ajay Castaneda PA-C Primary Care Provider Reason for Visit Reason Comments Other Encounter Details Date Type Department Care Team Description 09/18/2019 [facility] Mere Day MD Other Primary Care - [address] [phone] (Wo rk) Social History Tobacco Use [...] Sig Dispensed Refills Start Date End Date oxybutynin (DITROPAN-XL) 5 TAKE ONE TABLET BY 90 Tab 3 0 09/18/2019 09/16/2020 mg CR tablet MOUTH EVERY DAY documented in this encounter Plan of Treatment Not on filedocumented as of this encounter Visit Diagnoses Not on filedocumented in this encounter Discontinued Medications Medication Sig Discontinue Reason Start Date End Date oxybutynin (DITROPAN-XL) Take 1 Tab by mouth 9 09/18/2019 5 mg CR tablet daily. documented as of this encounter Care Teams Electronic Scanner Operator Relationship Specialty Start Date End Date Mere Gonzales MD PCP - General 10/05/17 07/30/20 [address] [place] [phone] Ajay Castaneda PA-C PCP - General Internal Medicine - Primary 07/31/20 [address] [place] [phone] documented as of this encounter
--- OUTSIDE RECORDS SUMMARY | 2021-11-28 01:51 | XMS_ITS | Encounter Summary ---
:1965 Author Organization [facility] Address [address] [place] [address] Care Team Providers Name Role Phone Mere Gonzales MD Primary Care Provider Reason for Visit Reason Onset Date Comments Back Pain 04/24/2020 Encounter Details Date Type Department Care Team Description 04/24/2020 Telephone [facility] Mere Day MD Back Pain Primary Care - [place] [address] [place], [place] [phone] (Wo rk) Social History Tobacco Use [...] this encounter Miscellaneous Notes Telephone Encounter - Esthela Hensley RN - 04/24/2020 2584 EST Patient is starting to get nervoous about back pain. Scheduled for a trip in May. Patient has some arthritis. This feels differrent. Back has had spasm. No energy. Patient also has some fibroid. Also has some vaginal changes. Feels like something new when wipes appointment scheduled to discuss. elephone Encounter - Isatu Watt - 04/24/2020 6221 EST Reason for Call: Back Pain Summary/Symptoms: patient has back pain and does have an appt on 05.08.20. Per patient she has back spasms and has been told she has fibroids patient will be doing a lot of traveling starting May first and is concern about traveling with back issues. Wanted to discuss andsee if she should come in earlier that the 17th Onset and Duration: on going starting about 1.5 months ago Does the patient have a computer, laptop or smart phone with high speed & video capability? N/A If so, would they be interested in doing a video visit via Zoom? N/A Appointment Offered? Yolanda Watt 04/24/2020 14:09 documented in this encounter Plan of Treatment Not on filedocumented as of this encounter Visit Diagnoses Not on filedocumented in this encounter Care Teams Docket Specialist Relationship Specialty Start Date End Date Mere Gonzales MD PCP - General 10/05/17 07/30/20 [address] [place] [phone] documented as of this encounter
--- OUTSIDE RECORDS SUMMARY | 2021-11-28 01:51 | XMS_ITS | Encounter Summary ---
:1965 Author Organization [facility] Address [address] [place] [address] Care Team Providers Name Role Phone Mere Gonzales MD Primary Care Provider Reason for Visit Reason Comments Other Encounter Details Date Type Department Care Team Description 02/28/2020 [facility] Mere Day MD Other Primary Care - [address] [phone] (Wo rk) Social History Tobacco Use Types [...] Tab 3 08/29/2021 tablet MOUTH EVERY DAY documented in this encounter Miscellaneous Notes Telephone Encounter - Armen Le, GABY - 02/29/2020 1158 EST Medication(s) Requested: Amlodipine 5mg Preferred Pharmacy: [facility] Is patient out of medication? Unknown Last Refill Date: 03/07/19 Last Visit Date with Ordering Provider: 07/04/19 Next Non-Acute Visit Date Scheduled with Care Team: Yes.05/08/20 ARMEN LE RN 02/29/2020 11:58 documented in this encounter Plan of Treatment Not on filedocumented as of this encounter Visit Diagnoses Not on filedocumented in this encounter Discontinued Medications Medication Sig Discontinue Reason Start Date End Date amLODIPine (NORVASC) 5 mg Take 1 Tab by mouth 03/07/1902/29/2020 tablet daily. documented as of this encounter Care Teams Roofer Assistant Relationship Specialty Start Date End Date Mere Gonzales MD PCP - General 10/05/17 07/30/[address] [place] [phone] documented as of this encounter
--- OUTSIDE RECORDS SUMMARY | 2021-11-28 01:51 | XMS_ITS | Encounter Summary ---
:1965 Author Organization [facility] Address [address] [place] [address] Care Team Providers Name Role Phone Ajay Castaneda PA-C Primary Care Provider Reason for Visit Reason Onset Date Comments Medications Refill 02/26/2021 Encounter Details Date Type Department Care Team Description 02/26/2021 Refill [facility] Ajay Castaneda PA-C Medications Refill Primary Care - [place] [address] [place] [phone] (Wo rk) Social History Tobacco Use Types [...] Take 1 in the 60 Tablet 0 202104/15/2021 ine (ADDERALL) 5 mg tablet morning, and one at mid-day. (Ok to skip doses if not needed on some days). documented in this encounter Miscellaneous Notes Telephone Encounter - Gilda Goodson - 02/26/2021 9118 EST Requested Prescriptions Pending Prescriptions Disp Refills ??? dextroamphetamine-amphetamine (ADDERALL) 5 mg tablet 60 Tablet 0 Sig: Take 1 in the morning, and one at mid-day. (Ok to skip doses if not needed on some days). [id number] - [place], [place] - [address] [place] [address] Confirmed Pharmacy? Yes Patient out of medication? Yes: Needs Refill Now Last Refill Date: 01/03/2021 Refills left? (explain exceptions requiring early refill) No Recent Visits Date Type Provider Dept 01/03/21 Office Visit Ajay Castaneda PA-C [facility] 09/16/20 Office Visit Ajay Castaneda PA-C [facility] 08/05/20 Office Visit Ajay Castaneda PA-C [facility] 05/08/20 Office Visit Mere Gonzales MD [facility] 04/25/20 Office Visit Zenobia Hawkins PA-C [facility] Showing recent visits within past 540 days with a meds authorizing provider and meeting all other requirements Future Appointments Date Type Provider Dept 03/25/21 Appointment Ajay Castaneda PA-C [facility] Showing future appointments within next 150 days with a meds authorizing provider and meeting all other requirements Future appointment: Already Scheduled Gilda Goodson 02/26/2021 15:57 documented in this encounter Plan of Treatment Not on filedocumented as of this encounter Visit Diagnoses Not on filedocumented in this encounter Discontinued Medications Medication Sig Discontinue Reason Start Date End Date dextroamphetamine-amphet Take 1 in the [facility] 01/03/2021 amine (ADDERALL) 5 mg morning, and one at tablet mid-day. (Ok to skip doses if not needed on some days). documented as of this encounter Care Teams Block Press Operator Relationship Specialty Start Date End Date Ajay Castaneda PA-C PCP - General Internal Medicine - Primary 07/31/20 [address] [place] [phone] documented as of this encounter
--- OUTSIDE RECORDS SUMMARY | 2021-11-28 01:51 | XMS_ITS | Encounter Summary ---
:1965 Author Organization [facility] Address [address] [place] [address] Care Team Providers Name Role Phone Ajay Castaneda PA-C Primary Care Provider Reason for Referral Consult (Routine) - Closed Specialty Diagnoses / Procedures Referred By Contact Refer red To Contact Rheumatology Diagnoses Pain in both upper extremities Other polyneuropathy Chronic bilateral low back pain, unspecified whether sciatica present Bilateral hip pain Ajay Castaneda PA-C Legunn, Scott D, MD [address], [address], [address] [place] [address] Phone: Fax: Referral ID Status Reason Start Date Expiration Date Visits V isits Requested Authorized [id number] Closed Specialty 08/06/2020 1 1 Services Required Question Answer Reason for Request: chronic polyarthropathy; pre vious diagnosis 'fibromyalgia'; consider undiagnosed underly ing metabolic/organic cause. Treatment strategy. Reason for Visit Reason Comments Establish Care Trans from [facility] Medications Refill Order pended Medication Management Topic for discussion Encounter Details Date Type Department Care Team Description 08/05/2020 Office Visit [facility] Ajay Castaneda Chronic pain syndrome (Primary Dx); Adult Primary Care - [place] Pain in both upper extremities; [place] [address] Hypertension, unspecified type; [address] [place], ADHD, predominantly inattent [place] type; [place] [address] [place] [address] Other polyneuropathy; [phone] Chronic bilater al low back pain, unspecified whether sciatica present; (Work) Bilateral hip pain Social History Tobacco Use Types Packs/Day Years [...] Sign Reading Time Taken Comments Blood Pressure 120/72 08/05/2020 0858 EDT Pulse 72 08/05/2020 0858 EDT Temperature 36.3 ??C (97.3 ??F) 08/05/2020 0858 EDT Respiratory Rate - - Oxygen Saturation - - Inhaled Oxygen Concentration - - Weight 51.3 kg (113 lb 3.2 08/05/2020 0858 EDT per pt, at home oz) Height - - Body Mass Index 20.23 08/07/2019 0809 EDT documented in this encounter Functional Status [...] Refills Start Date End Date venlafaxine (EFFEXOR-XR) Take 1 capsule by 180 capsule 3 08/29/2021 37.5 mg XR capsule mouth daily. ( dose change on 08/05/20) dextroamphetamine-amphet Take 1 capsule by 30 capsule 0 07/2308/06/2020 amine (ADDERALL XR) 15 mouth daily. Daily mg XR capsule Max: 1 capsule documented in this encounter Progress Notes Ajay Castaneda PA-C - 08/05/2020 0845 EDT Subjective: Patient ID: Heike Salguero is an 55 y.o. female. Chief Complaint Patient presents with ??? Establish Care Trans from ??? Medications Refill Order pended ??? Medication Management Topic for discussion HPI Multiple concerns: chronic pain rosmery back, shoulders, hips. Pain does not exactly keep her awake at night, but it wakesher when she moves. saw dr Daniels in past. Wants to meet different rheum doctor. concerned that she could have chronic lyme. Requests testing dad recently. Says she has not cried yet about it--wonders if that is because of the effexor ,taking 37.5 bid Taking vitamin d 1000 u Patient Active Problem List Diagnosis ??? ADHD, predominantly inattentive type ??? Chronic abdominal pain ??? Constipation ??? Raynaud phenomenon ??? Frequent UTI ??? Moderate episode of recurrent major depressive disorder (HCC-CMS) ??? Overactive bladder ??? Hypertension ??? Primary hypercoagulable state (HCC-CMS) ??? Pain in both upper extremities ??? Chronic pain syndrome Outpatient Medications Marked as Taking for the 08/05/20 encounter (Office Visit) with Ajay Castaneda PA-C Medication Sig Note Dispense Refill ??? amLODIPine (NORVASC) 5 mg tablet TAKE ONE TABLET BY MOUTH EVERY DAY 90 Tab 3 ??? ascorbic acid, vitamin C, (VITAMIN C) 500 mg tablet Take 500 mg by mouth daily. ??? [DISCONTINUED] cholecalciferol, Vitamin D3, 125 mcg (5,000 unit) tablet Take by mouth daily. 08/05/2020: 1000u ??? cyanocobalamin (VITAMIN B-12) 500 mcg tablet Take 500 mcg by mouth daily. ??? hydrOXYzine (ATARAX) 25 mg tablet Take 1-2 tabs BID prn itching or anxiety 180 Tab 3 ??? omeprazole (PRILOSEC) 20 mg capsule Take 1 Cap by mouth 2 times daily. 60 Cap 1 ??? traZODone (DESYREL) 50 mg tablet TAKE ONE TABLET BY MOUTH AT BEDTIME 90 Tab 3 ??? venlafaxine (EFFEXOR-XR) 37.5 mg XR capsule Take 2 Caps by mouth daily. 180 Cap 3 ROS - See HPI Objective: BP 120/72 Pulse 72 Temp 36.3 ??C (97.3 ??F) (Temporal) Wt 51.3 kg (113 lb 3.2 oz) Comment: perpt, at home LMP 01/07/2018 (Approximate) BMI 20.23 kg/m?? Physical Exam Constitutional: Appearance: She is well-developed and well-nourished. Neurological: Mental Status: She is alert and oriented to person, place, and time. Psychiatric: Mood and Affect: Mood and affect normal. Behavior: Behavior normal. Thought Content: Thought content normal. Judgment: Judgment normal. Appears well. No acute disress Assessment / Plan: Recheck 4 weeks Cut down dose of venlafaxine to 37.5 q day on trial basis. Refer to rheum: Dr Lai Will go for labs Does not want more x-rays until after getting labs done. Mentions numbness / tingling of hands, feet at end of visit. May need workup: Spep, EMG, MRI cervical, etc. Heike was seen today for establish care, medications refill and medication management. Diagnoses and all orders for this visit: Chronic pain syndrome - CK; Future - LYME AB; Future - C REACTIVE PROTEIN; Future - SED. RATE:WESTERGREN; Future - FERRITIN; Future Pain in both upper extremities - CK; Future - LYME AB; Future - C REACTIVE PROTEIN; Future - SED. RATE:WESTERGREN; Future - FERRITIN; Future - AMB CONS/FOLLOW UP RHEUMATOLOGY; Future Hypertension, unspecified type ADHD, predominantly inattentive type Other polyneuropathy - VITAMIN B12; Future - SPEP WITH IMMUNOTYPING; Future - LYME AB; Future - C REACTIVE PROTEIN; Future - AMB CONS/FOLLOW UP RHEUMATOLOGY; Future Chronic bilateral low back pain, unspecified whether sciatica present - CK; Future - C REACTIVE PROTEIN; Future - AMB CONS/FOLLOW UP RHEUMATOLOGY; Future Bilateral hip pain - SED. RATE:WESTERGREN; Future - FERRITIN; Future - AMB CONS/FOLLOW UP RHEUMATOLOGY; Future Other orders - Discontinue: dextroamphetamine-amphetamine (ADDERALL XR) 15 mg XR capsule; Take 1 capsule by mouthdaily. Daily Max: 1 capsule Med Orders Placed This Visit and Additions to the Medication List Medications ??? DISCONTD: dextroamphetamine-amphetamine (ADDERALL XR) 15 mg XR capsule Sig: Take 1 capsule by mouth daily. Daily Max: 1 capsule Dispense: 30 capsule Refill: 0 Orders Placed This Encounter Procedures ??? Vitamin B12 Standing Status: Future Standing Expiration Date: 11/04/2020 Order Specific Question: Release to Patient (Note: Choosing Manual Release will only block results from tests performed at [facility] and does not apply for Miscellaneous Test Order) Answer: Immediate ??? SPEP with Immunotyping Standing Status: Future Standing Expiration Date: 08/06/2021 Order Specific Question: Release to Patient (Note: Choosing Manual Release will only block results from tests performed at [facility] and does not apply for Miscellaneous Test Order) Answer: Immediate ??? CK Standing Status: Future Standing Expiration Date: 08/06/2021 Order Specific Question: Release to Patient (Note: Choosing Manual Release will only block results from tests performed at [facility] and does not apply for Miscellaneous Test Order) Answer: Immediate ??? Lyme Antibody Standing Status: Future Standing Expiration Date: 08/06/2021 Order Specific Question: Release to Patient (Note: Choosing Manual Release will only block results from tests performed at [facility] and does not apply for Miscellaneous Test Order) Answer: Immediate ??? C Reactive Protein: use to detect acute inflammation Standing Status: Future Standing Expiration Date: 11/04/2020 Order Specific Question: Release to Patient (Note: Choosing Manual Release will only block results from tests performed at [facility] and does not apply for Miscellaneous Test Order) Answer: Immediate ??? Sed. Rate: Do not order when looking for inflammation in patients with undiagnosed conditions. May be indicated when monitoring specific chronic conditions. Standing Status: Future Standing Expiration Date: 11/04/2020 Order Specific Question: Release to Patient (Note: Choosing Manual Release will only block results from tests performed at [facility] and does not apply for Miscellaneous Test Order) Answer: Immediate ??? Ferritin Standing Status: Future Standing Expiration Date: 02/02/2021 Order Specific Question: Release to Patient (Note: Choosing Manual Release will only block results from tests performed at [facility] and does not apply for Miscellaneous Test Order) Answer: Immediate ??? Amb Consult/Follow Up Rheumatology Standing Status: Future Standing Expiration Date: 08/06/2021 Referral Priority: Routine Referral Type: Consult Referral Reason: Specialty Services Required Referred to Provider: Juanito Lai MD Number of Visits Requested: 1 Ajay Castaneda PA-C Next appt at [place] Office: 08/06/2020 08/06/2020 11:04 documented in this encounter Plan of Treatment Scheduled Referrals Name Type Priority Associated Diagnoses Order S chedule AMB CONS/FOLLOW UP Outpatient Referral Routine Pain in both up per Expected: RHEUMATOLOGY extremities 11/06/2020 Other polyneurop athy (Approximate), Chronic bilateral Expires: low back pain, 08/06/2021 unspecified whether sciatica present Bilateral hip pain documented as of this encounter Results FERRITIN (09/11/2020 8:32 EDT) Pathologist Sig nature Ferritin 15 10 - 291 ng/mL [facility] Specimen Blood - Venous blood (substance) Performing Organization Address City/State/ZIP Code Phon e Number [facility] [address] [place] [address] SERVICES SED. RATE:WESTERGREN (09/11/2020 8:32 EDT) Pathologist Sig nature Sed Rate 1 0 - 30 mm/hr [facility] Specimen Blood - Venous blood (substance) Performing Organization Address City/State/ZIP Code Phon e Number [facility] [address] [place] [address] SERVICES C REACTIVE PROTEIN (09/11/2020 8:32 EDT) Pathologist Sig nature C-Reactive Protein <7.0 <10.0 mg/L [facility] Specimen Blood - Venous blood (substance) Performing Organization Address [facility]/ZIP Code Phon e Number [facility] [address] [place] [address] SERVICES LYME AB (09/11/2020 8:32 EDT) Pathologist Sig nature Lyme Ab Negative Negative [facility] Specimen Blood - Venous blood (substance) Performing Organization Address [facility]/ZIP [facility] [place] Number [facility] [address] [place] [address] SERVICES CK (09/11/2020 8:32 EDT) Pathologist Sig nature CK 103 30 - 135 U/L [facility] Specimen Blood - Venous blood (substance) Performing Organization Address [facility] Phon e Number [facility] [address] [place] [address] SERVICES (ABNORMAL) VITAMIN B12 (09/11/2020 8:32 EDT) Pathologist Sig nature Vitamin B12 920 (H) 211 - 911 pg/mL [facility] SERVICES Specimen Blood - Venous blood (substance) Performing Organization Address [facility] Phon e Number [facility] [address] [place] [address] SERVICES documented in this encounter Visit Diagnoses Diagnosis Chronic pain syndrome - Primary Pain in both upper extremities Hypertension, unspecified type ADHD, predominantly inattentive type Attention deficit disorder without menti on of hyperactivity Other polyneuropathy Chronic bilateral low back pain, unspeci fied whether sciatica present Bilateral hip pain Pain in joint, pelvic region and thigh documented in this encounter Discontinued Medications Medication Sig Discontinue Reason Start Date End Date ergocalciferol, vitamin Take by mouth. Duplicate Therapy 08/05/2020 D2, (VITAMIN D ORAL) magnesium oxide Take 400 mg by Patient Stopped 021 (MAG-OX) 400 mg (241.3 mouth daily. Taking mg magnesium) tablet gabapentin (NEURONTIN) Take 100 mg by Patient Stopped 08/05/2020 100 mg capsule mouth daily. Taking cholecalciferol, Take by mouth Dose adjustment 021 Vitamin D3, 125 mcg daily. (5,000 unit) tablet metroNIDAZOLE Place 37.5 mg Therapy completed 04/26/2020 06/15/20 21 (METROGEL) 0.75 % vaginally daily. vaginal gel methocarbamoL (ROBAXIN) Take 1-2 tabs every Therapy completed 04/2508/06/2020 500 mg 6-8 hours prn pain. tabletIndications: Spasm of muscle of lower back venlafaxine Take 2 Caps by 05/08/2020 08/06/2020 (EFFEXOR-XR) 37.5 mg XR mouth daily. capsule documented as of this encounter Care Teams Clinical Appeals Rn Relationship Specialty Start Date End Date Ajay Castaneda PA-C PCP - General Internal Medicine - Primary 07/31/20 [address] [place] [phone] documented as of this encounter
--- OUTSIDE RECORDS SUMMARY | 2021-11-28 01:51 | XMS_ITS | Encounter Summary ---
:1965 Author Organization [facility] Address [address] [place] [address] Care Team Providers Name Role Phone Mere Gonzales MD Primary Care Provider Reason for Visit Reason Comments Other Encounter Details Date Type Department Care Team Description 02/15/2020 Refill [facility] Adult Mere Day MD Other Primary Care - [address] [phone] (Wo rk) Social History Tobacco Use Types [...] Date venlafaxine (EFFEXOR-XR) TAKE ONE CAPSULE BY 90 Cap 0 05/08/2020 37.5 mg XR capsule MOUTH EVERY DAY traZODone (DESYREL) 50 mg TAKE ONE TABLET BY 90 Tab 0 06/26/2020 tablet MOUTH AT BEDTIME documented in this encounter Miscellaneous Notes Telephone Encounter - Jony Mayer RN - 02/20/2020 1301 EST Medication(s) Requested: Venlafaxine 37.5 mg, trazodone 50 mg Preferred Pharmacy: [facility] Is patient out of medication? Unknown Last Refill Date: 01/16/20 for 30 with 0 refills Last Visit Date with Ordering Provider: 07/04/19 Next Non-Acute Visit Date Scheduled with Care Team: Yes. 05/08/20 JONY MAYER RN 02/20/2020 13:01 documented in this encounter Plan of Treatment Not on filedocumented as of this encounter Visit Diagnoses Not on filedocumented in this encounter Discontinued Medications Medication Sig Discontinue Reason Start Date End Date venlafaxine (EFFEXOR-XR) TAKE ONE CAPSULE BY 0 02/20/2020 37.5 mg XR capsule MOUTH EVERY DAY traZODone (DESYREL) 50 TAKE ONE TABLET BY 01/16/2020 02/20/2020 mg tablet MOUTH AT BEDTIME documented as of this encounter Care Teams Life Teacher Relationship Specialty Start Date End Date Mere Gonzales MD PCP - General 10/05/17 07/30/20 [address] [place] [address] documented as of this encounter
--- OUTSIDE RECORDS SUMMARY | 2021-11-28 01:51 | XMS_ITS | Encounter Summary ---
:1965 Author Organization [facility] Address [address] [place] [address] Care Team Providers Name Role Phone Mere Gonzales MD Primary Care Provider Reason for Referral PT/OT/ST (Routine) - Closed Specialty Diagnoses / Procedures Referred By Contact Refer red To Contact Rehab Therapies Diagnoses Fibromyalgia Mere Gonzales MD [facility] [address] [phone] Referral ID Status Reason Start Date Expiration Date Visits V isits Requested Authorized [id number] Closed Specialty 05/08/2020 1 1 Services Required Question Answer Reason for Request: chronic joint pain, fibromay lgia Reason for Visit Reason Comments Medication Management Abdominal Pain RUQ Foot Pain bilateral, bottom of the toe s Encounter Details Date Type Department Care Team Description 05/08/2020 Office Visit [facility] Mere Gonzales Fibro myalgia (Primary Dx); Adult Primary Care - [place] Barbara RUQ pain [place] [address] [place] [address] [place] [phone] Social History Tobacco Use Types Packs/Day [...] Sign Reading Time Taken Comments Blood Pressure 104/76 05/08/2020 0853 EDT Pulse 80 05/08/2020 0853 EDT r Temperature 36.5 ??C (97.7 ??F) 05/08/2020 0853 EDT Respiratory Rate 16 05/08/2020 0853 EDT Oxygen Saturation - - Inhaled Oxygen Concentration - - Weight 52.2 kg (115 lb) 05/08/2020 0853 EDT Height - - Body Mass Index 20.56 08/07/2019 0809 EDT documented in this encounter [...] Sig Dispensed Refills Start Date End Date omeprazole (PRILOSEC) 20 Take 1 Cap by mouth 60 Cap 1 09/09/2020 mg capsule 2 times daily. dextroamphetamine-amphetam Take 1 Tab by mouth 28 Tab 0 05/29/2020 06/26/2020 ine (ADDERALL) 15 mg daily for 28 days. tablet Daily Max: 15 mg venlafaxine (EFFEXOR-XR) Take 2 Caps by 180 Cap 3 021 08/06/2020 37.5 mg XR capsule mouth daily. documented in this encounter Progress Notes Mere Gonzales MD - 05/08/2020 0845 EDT Heike Salguero, 55 y.o. female PRIMARY CARE PROVIDER: Mere Gonzales CHIEF COMPLAINT: Chief Complaint Patient presents with ??? Medication Management ??? Abdominal Pain RUQ ??? Foot Pain bilateral, bottom of the toes HISTORY OF PRESENT ILLNESS: Heike Salguero is a 55 y.o. female here for follow-up. She saw an outside toaster operator who was very thorouguh and diagnosed her with fibromyalgia. Heiek has concerns about the diagnosis due to some of the connotations with it and the historical context of fibro, but is understanding that something is underlying it. She would like to focus on treating the chronic muscle/neuropathic pain better than we currently are. She is taking low dose effexor. Used to take gabapentin but not anymore. She has never tried lyrica. She has had 1 mo of RUQ abd pain that is nonradiating. Not associated with eating or food choices, nausea/vomiting. She has some TTP along the R of the lower spine, but this is a distinct pain from theanterior abdominal pain. She has never had anything like this before. It feels like a gnawing/achingor raw pain. Past medical, surgical, social and family history have been reviewed. Problem list reviewed. 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 She drinks 1 glass of wine /week. Nonsmoker. REVIEW OF SYSTEMS: A ten point ROS was performed and was negative except for pertinent positives in the HPI MEDICATION REVIEW: Medications reviewed & updated. ALLERGIES: Allergies as of 05/08/2020 ??? (No Known Allergies) PHYSICAL EXAM: Vitals: LMP 01/07/2018 (Approximate) Gen - NAD ASSESSMENT / PLAN : 55 y.o. female here for follow-up. 1. Fibromyalgia/Central sensitization syndrome - increase effexor to 75mg. Consider restarting gabapentin or trying lyrica if needed in the future. - PT referral for help with strengthening, flexibility 2. RUQ pain - RUQ u/s ordered, also lipase since we're due for labs anyway. As it's not food relatedand she describes it as a gnawing/aching , I'm wondering about PUD. Starting prilosec for 2 weeks 3. Factor V leiden - followed by steve, on daily ASA. 4. Depression/Anxiety - continue effexor 5. Raynauds - symptoms are much improved with norvasc. 6. Frequent UTIs/Incontinence with recent kidney stone - previously seen by the [facility] and urology. - continue oxybutynin 7. ADD - continue adderall. She knows q6mo visits are necessary Health Maintenance: Pap smear - UTD Jan 2015 Mammogram - UTD July 2018 Colonoscopy - UTD Nov 2017, due 10 yrs Tdap - UTD Nov 2017 Shingrix - discuss when restocked No follow-ups on file. documented in this encounter Plan of Treatment Scheduled Referrals Name Type Priority Associated Diagnoses Order S chedule AMB CONS/FOLLOW UP Outpatient Referral Routine Fibromyalgia Ex pected: PHYSICAL THERAPY 05/08/2020 (Approximate) documented as of this encounter Visit Diagnoses Diagnosis Fibromyalgia - Primary Mylagia and myositis, unspecified RUQ pain Abdominal pain, right upper quadrant documented in this encounter Discontinued Medications Medication Sig Discontinue Reason Start Date End Date venlafaxine (EFFEXOR-XR) TAKE ONE CAPSULE BY Reorder 0 05/08/2020 37.5 mg XR capsule MOUTH EVERY DAY dextroamphetamine-amphet Take 1 Tab by mouth Reorder 1 05/08/2020 amine (ADDERALL) 15 mg daily for 28 days. tablet Daily Max: 15 mg documented as of this encounter Care Teams Welder Boilermaker Relationship Specialty Start Date End Date Mere Gonzales MD PCP - General 10/05/17 07/30/20 [address] [place] [phone] documented as of this encounter
--- OUTSIDE RECORDS SUMMARY | 2021-11-28 01:51 | XMS_ITS | Encounter Summary ---
:1965 Author Organization [facility] Address [address] [place] [address] Care Team Providers Name Role Phone Mere Gonzales MD Primary Care Provider Reason for Visit Reason Onset Date Comments Appointment Related 06/14/2020 Encounter Details Date Type Department Care Team Description 06/14/2020 Telephone [facility] Amaya Rand, Appointment Related Surgical Oncology - PA-C [address] [address] [place], [place] [address] (Wo rk) Social History Tobacco [...] Notes Telephone Encounter - Megha Martinez - 06/19/2020 1005 EDT Called and lvm; following up on the missed appointment on 06/17/2020with Amaya Rand. We understand that we asked that you have a mammogram prior to your visit. [phone] to schedule her mammogram and then give a call into the [facility], left [facility] and clinic hours, to speak with a hydrochloric area supervisor to schedule her provider appt. Megha Martinez 06/19/2020 10:07 elephone Encounter - Megha [place] - 06/14/2020 0832 EDT Lvm; reaching out due to upcoming appt with Amaya Rand on 06/17/2020; we would like for her to have a mammogram prior to her appt. Offered 8 or 9 am. Asked for a call back before 4:30 pm today to confirm ability to make one of the two mammogram appts or to reschedule her appt with Amaya and reschedule the mammogram. Megha Martinez 06/14/2020 8:34 documented in this encounter Plan of Treatment Not on filedocumented as of this encounter Visit Diagnoses Not on filedocumented in this encounter Care Teams Veterinarian Poultry Relationship Specialty Start Date End Date Mere Gonzales MD PCP - General 10/05/17 07/30/20 [address] [place] [phone] documented as of this encounter
--- OUTSIDE RECORDS SUMMARY | 2021-11-28 01:51 | XMS_ITS | Encounter Summary ---
:1965 Author Organization [facility] Address [address] [place] [address] Care Team Providers Name Role Phone Mere Gonzales MD Primary Care Provider Reason for Visit Reason Onset Date Comments Appointment Related 11/08/2019 Encounter Details Date Type Department Care Team Description 11/08/2019 [facility]phone [facility] Naif Dietrich Appointment Related Mammography - Main [facility] [address] [place] [address] Social History Tobacco Use Types [...] Notes Telephone Encounter - Cristy Dietrich - 11/08/2019 1139 EDT Left message for pt to call back documented in this encounter Plan of Treatment Not on filedocumented as of this encounter Visit Diagnoses Not on filedocumented in this encounter Care Teams Analysis Mgr Relationship Specialty Start Date End Date Mere Gonzales MD PCP - General 10/05/17 07/30/20 [address] [place] [phone] documented as of this encounter
--- OUTSIDE RECORDS SUMMARY | 2021-11-28 01:51 | XMS_ITS | Encounter Summary ---
:1965 Author Organization [facility] Address [address] [place] [address] Care Team Providers Name Role Phone Ajay Castaneda PA-C Primary Care Provider Encounter Details Date Type Department Care Team Description 09/11/2020 Travel Social History Tobacco Use Types Packs/Day [...] on filedocumented in this encounter Care Teams Senior Software Qa Analyst Relationship Specialty Start Date End Date Ajay Castaneda PA-C PCP - General Internal Medicine - Primary 07/31/20 [address] [place] [phone] documented as of this encounter
--- OUTSIDE RECORDS SUMMARY | 2021-11-28 01:51 | XMS_ITS | Encounter Summary ---
:1965 Author Organization [facility] Address [address] [place] [address] Care Team Providers Name Role Phone Mere Gonzales MD Primary Care Provider Reason for Visit Reason Onset Date Comments Appointment Related 12/04/2019 Encounter Details Date Type Department Care Team Description 12/04/2019 [facility] Edward Aldana Appointment Related Mammography - Main [facility] [address] [place] [address] Social History Tobacco Use Types [...] this encounter Miscellaneous Notes Telephone Encounter - Ellen Aldana - 12/04/2019 1137 EDT Left message for patient to call me back documented in this encounter Plan of Treatment Not on filedocumented as of this encounter Visit Diagnoses Not on filedocumented in this encounter Care Teams Testing Coordinator Relationship Specialty Start Date End Date Mere Gonzales MD PCP - General 10/05/17 07/30/20 [address] [place] [phone] documented as of this encounter
--- OUTSIDE RECORDS SUMMARY | 2021-11-28 01:51 | XMS_ITS | Encounter Summary ---
:1965 Author Organization [facility] Address [address] [place] [address] Care Team Providers Name Role Phone Ajay Castaneda PA-C Primary Care Provider Reason for Visit Reason Onset Date Comments Medications Refill 04/15/2021 Encounter Details Date Type Department Care Team Description 04/15/2021 Refill [facility] Ajay Castaneda PA-C Medications Refill Primary Care - [facility] [address] [facility] [place] [phone] (Wo rk) Social History Tobacco Use Types [...] mg Take 1 Tablet by 90 Tablet 0 03/2608/29/2021 tablet mouth at bedtime. dextroamphetamine-amphetam Take 1 in the 14 Tablet 0 202108/29/2021 ine (ADDERALL) 5 mg tablet morning, and one at mid-day. (Ok to skip doses if not needed on some days). documented in this encounter Miscellaneous Notes Telephone Encounter - Apple Blanco - 04/15/2021 1633 EST Requested Prescriptions Pending Prescriptions Disp Refills ??? dextroamphetamine-amphetamine (ADDERALL) 5 mg tablet 60 Tablet 0 Sig: Take 1 in the morning, and one at mid-day. (Ok to skip doses if not needed on some days). [facility] Confirmed Pharmacy? Yes Patient out of medication? Is almost out of the Adderall. Allie Ajay is out of the office, covering PCP will only do 7 day supply. Pt understands. Last Refill Date: 1. Adderall 02.27.21 2. Trazodone 06.26.20 Refills left? (explain exceptions requiring early refill) Yes, for the Trazodone, pt has moved to [place], pt changing to [facility] Recent Visits Date Type Provider Dept 01/03/21 Office Visit Ajay Castaneda PA-C [facility] 09/16/20 Office Visit Ajay Castaneda PA-C [facility] 08/05/20 Office Visit Ajay Castaneda PA-C [facility] 05/08/20 Office Visit Mere Gonzales MD [facility] 04/25/20 Office Visit Zenobia Hawkins PA-C [facility] Showing recent visits within past 540 days with a meds authorizing provider and meeting all other requirements Future Appointments Date Type Provider Dept 05/23/21 Appointment Ajay Castaneda PA-C [facility] Showing future appointments within next 150 days with a meds authorizing provider and meeting all other requirements Future appointment: Scheduled Today Apple Blanco 04/15/2021 16:35 documented in this encounter Plan of Treatment Not on filedocumented as of this encounter Visit Diagnoses Not on filedocumented in this encounter Discontinued Medications Medication Sig Discontinue Reason Start Date End Date traZODone (DESYREL) 50 TAKE ONE TABLET BY Reorder 06/26/2020 04/15/2021 mg tablet MOUTH AT BEDTIME dextroamphetamine-amphet Take 1 in the Reorder 02/27/2021 amine (ADDERALL) 5 mg morning, and one at tablet mid-day. (Ok to skip doses if not needed on some days). documented as of this encounter Care Teams Blending Machine Operator Relationship Specialty Start Date End Date Ajay Castaneda PA-C PCP - General Internal Medicine - Primary 07/31/[address] [place] [phone] documented as of this encounter
--- OUTSIDE RECORDS SUMMARY | 2021-11-28 01:51 | XMS_ITS | Encounter Summary ---
:1965 Author Organization [facility] Address [address] [place] [address] Care Team Providers Name Role Phone Mere Gonzales MD Primary Care Provider Encounter Details Date Type Department Care Team Description 08/07/2019 Travel Social History Tobacco Use Types Packs/Day [...] on filedocumented in this encounter Care Teams Playground Official Relationship Specialty Start Date End Date Mere Gonzales MD PCP - General 10/05/17 07/30/20 [address] [place] [phone] documented as of this encounter
--- OUTSIDE RECORDS SUMMARY | 2021-11-28 01:51 | XMS_ITS | Encounter Summary ---
:1965 Author Organization [facility] Address [address] [place] [address] Care Team Providers Name Role Phone Mere Gonzales MD Primary Care Provider Reason for Visit Reason Comments Back Pain Vaginal Discharge plus another issue (protrusi on?), drape given Encounter Details Date Type Department Care Team Description 04/25/2020 Office Visit [facility] Zenobia Hawkins ed abdominal pain (Primary Dx); Adult Primary Care - [facility] Spasm o f muscle of lower back; Mobile Vaginal discharge [address] [place] [address] Social History Tobacco Use Types [...] Sign Reading Time Taken Comments Blood Pressure 110/60 04/25/2020 0935 EST Pulse 76 04/25/2020 0935 EST Temperature 35.8 ??C (96.5 ??F) 04/25/2020 0935 EST Respiratory Rate 14 04/25/2020 0935 EST Oxygen Saturation - - Inhaled Oxygen Concentration - - Weight 52.9 kg (116 lb 9.6 oz) 04/25/2020 0935 EST Height - - Body Mass Index 20.84 08/07/2019 0809 EDT documented in this encounter [...] Sig Dispensed Refills Start Date End Date methocarbamoL (ROBAXIN) 500 Take 1-2 tabs 20 Tab 0 04/2508/06/2020 mg tabletIndications: Spasm every 6-8 hours of muscle of lower back prn pain. documented in this encounter Progress Notes Zenobia Hawkins PA-C - 04/25/2020 0930 EST Subjective: Patient ID: Heike Salguero is an 55 y.o. female. Chief Complaint Patient presents with ??? Back Pain ??? Vaginal Discharge plus another issue (protrusion?), drape given Heike has a history of low back pain but over the last month she has developed intermittent low back spasms which are different than the back pain in the past. She denies any injury, trauma or unusual activity. They come on without warning and can be incapacitating. Time will take them away. Ibuprofen and Tylenol no help. She is never had this in the past. Simultaneously she has been experiencingsome abdominal pain especially when bending over. She feels like there is a fullness present. She has IBS and has been constipation dependent for 12 years now. Lately the constipation has become worse where she does not go for several weeks. She started taking a stool softener but that has not helped.She eats a diet very high in fiber and roughage. She has a history of a fibroid uterus. She has beenexperiencing some different sensations in the vaginal area especially when urinating. No UTI symptoms but something feels different. For the last couple days she has had an unusual vaginal discharge avril t is yellowish to green in color. No foul smell. She is not currently sexually active with her as it has been painful in the past. Patient Active Problem List Diagnosis ??? ADHD, predominantly inattentive type ??? Chronic abdominal pain ??? Constipation ??? Raynaud phenomenon ??? Frequent UTI ??? Moderate episode of recurrent major depressive disorder (HCC-CMS) ??? Overactive bladder ??? Hypertension ??? Primary hypercoagulable state (HCC-CMS) ??? Pain in both upper extremities ??? Chronic pain syndrome Outpatient Medications Marked as Taking for the 04/25/20 encounter (Office Visit) with Zenobia Hawkins PA-C Medication Sig Dispense Refill ??? amLODIPine (NORVASC) 5 mg tablet TAKE ONE TABLET BY MOUTH EVERY DAY 90 Tab 3 ??? ascorbic acid, vitamin C, (VITAMIN C) 500 mg tablet Take 500 mg by mouth daily. ??? aspirin (ASPIRIN LOW DOSE) 81 mg EC tablet Take 81 mg by mouth daily. ??? cyanocobalamin (VITAMIN B-12) 500 mcg tablet Take 500 mcg by mouth daily. ??? dextroamphetamine-amphetamine (ADDERALL) 15 mg tablet Take 1 Tab by mouth daily for 28 days. Daily Max: 15 mg 28 Tab 0 ??? ergocalciferol, vitamin D2, (VITAMIN D ORAL) Take by mouth. ??? magnesium oxide (MAG-OX) 400 mg (241.3 mg magnesium) tablet Take 400 mg by mouth daily. ??? traZODone (DESYREL) 50 mg tablet TAKE ONE TABLET BY MOUTH AT BEDTIME 90 Tab 0 ??? venlafaxine (EFFEXOR-XR) 37.5 mg XR capsule TAKE ONE CAPSULE BY MOUTH EVERY DAY 90 Cap 0 ROS - unremarkable except as noted in the HPI Objective: BP 110/60 (BP Cuff Location: Left arm, BP Patient Position: Sitting, BP Cuff Sizes: Adult, regular) Pulse 76 Temp 35.8 ??C (96.5 ??F) (Temporal) Resp 14 Wt 52.9 kg (116 lb 9.6 oz) LMP 01/07/2018 (Approximate) BMI 20.84 kg/m?? Physical Exam Constitutional: General: She is not in acute distress. Appearance: She is well-developed and well-nourished. Abdominal: General: Abdomen is flat. There is no distension. Palpations: Abdomen is soft. Tenderness: There is generalized abdominal tenderness (very mild rosmery lower quadrants). There is no right CVA tenderness, left CVA tenderness, guarding or rebound. Genitourinary: Labia: Right: No rash, tenderness or lesion. Left: No rash, tenderness or lesion. Vagina: Vaginal discharge present. No erythema, bleeding, lesions or prolapsed vaginal prater. Uterus: Deviated. Not enlarged and not tender. Adnexa: Right: No mass, tenderness or fullness. Left: No mass, tenderness or fullness. Musculoskeletal: Comments: Low back: Slight loss of lordotic curve. No vertebral body tenderness. Mildly tender withtension palpated bilateral erector spinae and quadratus lumborum. Full AROM without pain. Assessment / Plan: Heike was seen today for back pain and vaginal discharge. Diagnoses and all orders for this visit: Patient with IBS constipation dependent with recent worsening in constipation despite diet high in fiber. She is now experiencing intermittent low back spasms without correlation to activity. Will further evaluate with plain film of abdomen. She was given methocarbamol to take to use as needed as she will be traveling next month to [place]. Reassured normal genitourinary exam with no sign of any lesions or prolapse. Scant amount of discharge. Vaginitis culture taken today. Believe the muscle spasms are most likely secondary to the constipation. Generalized abdominal pain - XR ABDOMEN 2 VIEWS; Future Spasm of muscle of lower back - methocarbamoL (ROBAXIN) 500 mg tablet; Take 1-2 tabs every 6-8 hours prn pain. Vaginal discharge - VAGINITIS EXAM Zenobia Hawkins PA-C 04/25/2020 10:11 Portions of this document have been prepared with speech recognition software or keyboard data entrytechniques. Minor irregularities or keyboarding misprints may be present. documented in this encounter Plan of Treatment Not on filedocumented as of this encounter Procedures Procedure Name Priority Date/Time Associated Diagnosis Comme nts ZZVAGINITIS EXAM Routine 04/25/2020 10:10 EST Vaginal discharg e Results for this procedure are i n the results section. documented in this encounter Results VAGINITIS EXAM (04/25/2020 10:10 EST) Trichomonas Antigen Negative Negative [facility] Scored Gram Smear Yeast not present [facility] Unable to rule out the presence of bacterial vaginosis [facility] Specimen Swab - Entire vagina (body structure) Performing Organization Address City/State/ZIP Code Phon e Number [facility] [address] [place] [address] SERVICES documented in this encounter Visit Diagnoses Diagnosis Generalized abdominal pain - Primary Abdominal pain, generalized Spasm of muscle of lower back Vaginal discharge Leukorrhea, not specified as infective documented in this encounter Discontinued Medications Medication Sig Discontinue Reason Start Date End Date cannabidiol, CBD, Take by mouth. CBD Therapy completed 04/25/2020 (CANNABIDIOL ORAL) Oil gabapentin (NEURONTIN) Take 1 Cap by mouth Therapy completed 201904/25/2020 300 mg capsule every morning AND 2 Caps at bedtime. documented as of this encounter Care Teams Demolition Engineer Relationship Specialty Start Date End Date Mere Gonzales MD PCP - General 10/05/17 07/30/[address] [place] [phone] documented as of this encounter
--- OUTSIDE RECORDS SUMMARY | 2021-11-28 01:51 | XMS_ITS | Encounter Summary ---
:1965 Author Organization [facility] Address [address] [place] [address] Care Team Providers Name Role Phone Mere Gonzales MD Primary Care Provider Reason for Visit Reason Comments New Patient Visit Encounter Details Date Type Department Care Team Description 08/07/2019 Office Visit [facility] Amaya Rand history of breast cancer (Primary Dx); Surgical Oncology - L, PA-C Dense breast tissue on mammogram [id number] [place] [address] [facility] [address] [place] [address] (Wo rk) Social History Tobacco [...] Sign Reading Time Taken Comments Blood Pressure 132/64 08/07/2019 0809 EDT Pulse 75 08/07/2019 0809 EDT Temperature 35.8 ??C (96.4 ??F) 08/07/2019 0809 EDT Respiratory Rate 12 08/07/2019 08 EDT Oxygen Saturation - - Inhaled Oxygen Concentration - - Weight 50.9 kg (112 lb 4.8 oz) 08/07/2019 0809 EDT Height 159.3 cm (5' 2.72) 08/07/2019 0809 EDT Body Mass Index 20.07 08/07/2019 0809 EDT documented in this encounter [...] documented as of this encounter Progress Notes Amaya Rand PA-C - 08/07/2019 0800 EDT Subjective: Patient ID: Heike Salguero is an 54 y.o. y.o. female Chief Complaint: Chief Complaint Patient presents with ??? New Patient Visit HPI: Division of Surgical Oncology- [facility] CONSULTATION- 08/07/2019 PROBLEM: 1. Family history of breast cancer SUBJECTIVE: Heike Salguero is a 54 year old female who presents to the high-risk clinic as a referral from Dr. Mere Gonzales. Patient has been referred to our clinic due to her family history of breast cancer. Patient also has a personal history of dense breast tissue Patient's mother was diagnosed with DCISat age 78. She was treated with lumpectomy and radiation. She is currently 79. She was treated at [facility]. Patient's maternal grandmother was diagnosed with breast cancer in her 50s and underwent a mastectomy. Patient does not have any concerns today with respect to her breasts. She denies any masses, skin changes or nipple discharge. She does not have a history of breast biopsies. Patient's medical history includes Factor V Leiden, undiagnosed nerve and joint pain, Raynauds andHTN. Patient has pain under her breasts to her jaw, her lower back and legs which has been present for four years. She has seen [facility] and has had MRIs and injection therapy. She has had a rheumatologic workup which patient reports was negative. GOLF PROFESSIONAL HISTORY: Menarche at age 12. (has 3 living children). Age at first childbirth 27. Patient is no longer having regular menstrual cycles. Last menstrual period December 2017. Patient went through menopause naturally. She denies any fertility drug use. She did take OCPs on and off for 16 years. She denies HRT. SOCIAL HISTORY: Born in [place], [place]. Lives in [place], [place]. . Has completed some post graduate courses. 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 Lifetime nonsmoker. Patient does drink 1 alcoholic drinkper day. FAMILY HISTORY: Patient has two daughters and one son, all healthy. Patient has one brother, he does not have a history of malignancy. He does have a history of ulcerative colitis. Patient's father was diagnosed with lung cancer at age 73 and he is currently 80. He was a smoker and used to work around pesticides. Patient's paternal grandmother did not have a history of malignancy. Patient is unsure of the health history of her paternal grandfather. She does know that he in his 80s. Patient's father has one sister and two brother, no history of malignancy. One of patient's paternal first cousins was diagnosed with a brain tumor at age 45. She does not have any additional information. This side of the family is Occitan and [place]. Patient's mother was diagnosed with DCIS at age 78. She was treated with lumpectomy and radiation. She is currently 79. She was treated at [facility]. Patient's maternal grandmother was diagnosed with breast cancer in her 50s and underwent a mastectomy. She in her mid 70s from a different cause. Patient's maternal grandfather was diagnosed with kidney cancer in his 50s and he in his 50s. Patient's mother has one sister, no history of malignancy. This individual did not have any children. This side of the family is Tajik and [place]. Patient Active Problem List Diagnosis ??? ADHD, predominantly inattentive type ??? Chronic abdominal pain ??? Constipation ??? Raynaud phenomenon ??? Frequent UTI ??? Moderate episode of recurrent major depressive disorder ([facility]) ??? Overactive bladder ??? Hypertension ??? Primary hypercoagulable state ([facility]) ??? Pain in both upper extremities ??? Chronic pain syndrome Past Medical History: Diagnosis Date ??? Chronic abdominal pain ??? Factor V Leiden ([facility]) 10/29/2017 homozygote. FH VTE ??? Frequent UTI 10/29/2017 ??? Hypertension ??? Post herpetic neuralgia ??? Primary hypercoagulable state ([facility]) 02/03/2018 -factor V Leiden homozygosity and elevated D-dimer (285) with FH thrombosis and FVL in her mother. Full thrombosis panel other than prothrombin mutation (no coverage) negative. -no prior hx VTE ??? Raynaud phenomenon 10/29/2017 Past Surgical History: Procedure Laterality Date ??? INTERSTIM to low back for bladder incontinence; coming out next month ??? KIDNEY STONE SURGERY 10/2017 Family History Problem Relation Age of Onset ??? Lung Cancer Father ??? *Other(comment) Father raynauds ??? Arthritis-Osteo Father ??? Breast Cancer Maternal Grandmother ??? Asthma Maternal Grandmother ??? Dementia Paternal Grandfather ??? High Blood Pressure Paternal Grandfather ??? Clotting Disorder Mother Factor V leiden and thrombosis ??? Arthritis-Osteo Mother ??? Breast Cancer Mother 78 ??? Ulcerative Colitis Brother ??? Cancer Maternal Grandfather ??? Rheumatologic Disease Paternal Grandmother ??? Osteoporosis Paternal Grandmother ??? Clotting Disorder Daughter Factor V Leiden ??? Clotting Disorder Daughter Factor V Leiden Social History Tobacco Use ??? Smoking status: Never Smoker ??? Smokeless tobacco: Never Used Substance Use Topics ??? Alcohol use: Yes Comment: 1 wine with dinner ??? Drug use: No Current Outpatient Medications: amLODIPine (NORVASC) 5 mg tablet ascorbic acid, vitamin C, (VITAMIN C) 500 mg tablet aspirin (ASPIRIN LOW DOSE) 81 mg EC tablet cannabidiol, CBD, (CANNABIDIOL ORAL) cyanocobalamin (VITAMIN B-12) 500 mcg tablet [START ON 09/15/2019] dextroamphetamine-amphetamine (ADDERALL) 15 mg tablet [START ON 08/18/2019] dextroamphetamine-amphetamine (ADDERALL) 15 mg tablet dextroamphetamine-amphetamine (ADDERALL) 15 mg tablet ergocalciferol, vitamin D2, (VITAMIN D ORAL) gabapentin (NEURONTIN) 300 mg capsule hydrOXYzine (ATARAX) 25 mg tablet magnesium oxide (MAG-OX) 400 mg (241.3 mg magnesium) tablet oxybutynin (DITROPAN-XL) 5 mg CR tablet traZODone (DESYREL) 50 mg tablet venlafaxine (EFFEXOR-XR) 37.5 mg XR capsule No current facility-administered medications for this visit. No Known Allergies BP 132/64 Pulse 75 Temp 35.8 ??C (96.4 ??F) (Tympanic) Resp 12 Ht 159.3 cm (62.72) Wt 50.9 kg (112 lb 4.8 oz) BMI 20.07 kg/m?? Review of Systems: Constitutional: Positive for fatigue (has discussed with her PCP), occasional loss of appetiteNegative for chills, fever and weight loss Eyes: Negative for pain Respiratory: Negative for hemoptysis, shortness of breath and wheezing Cardiovascular: Positive for intermittent constipation Negative for chest pain, claudication and legswelling Gastrointestinal: Negative for abdominal pain Bladder: History of UTIs, kidney stones Musculoskeletal: Negative for myalgias Skin: Negative for rash Neurological: Positive for numbness/tingling into her hands and feet (she feels this is due to bad circulation). Patient states she did have an EMG previously as she has also experienced weakness in hand/arm.Negative for speech change, seizures and loss of consciousness Endo/Heme/Allergies: Does not bruise/bleed easily Psychiatric/Behavioral: Positive for depression/anxiety (patient reports she had started on a new medication which has been helpful) Negative for hallucinations, substance abuse and suicidal ideas - See HPI Physical Exam: Constitutional: She is oriented to person, place and time. Vital signs are normal. She appears well-developed and well-nourished.No distress noted. Head: Normocephalic and atraumatic Eyes: No discharge. No scleral icterus. Cardiovascular: Normal rate and regular rhythm. Pulmonary/Chest: Effort normal and breath sounds normal. No respiratory distress. She has no wheezes,rhonchi or rales. Breast Exam: Breasts and axilla are examined in the seated and the supine position. Dense breast tissue noted in bilateral breasts. There are no discrete or obvious palpable abnormalities in either breast. There is no skin puckering, dimpling, nipple inversion/change, or nipple discharge. There are noconcerning skin changes. There are no axillary masses Abdominal: Soft, no tenderness Lymphadenopathy: She has no cervical, supraclavicular or axillary adenopathy. Neurological: She is alert and oriented x3, Coordination is normal Skin: Skin is warm and dry. No rash is present. No erythema or pallor is present. Psychiatric: Patient has normal mood and affect. Her behavior is normal. Vital signs have been reviewed. MA BREAST DIAGNOSTIC ARETHA BILATERAL 03/06/2019 11:12 AM Signs and Symptoms/Comments: six month follow up bilateral breast calcifications upper outer quadrants Comparison: Multiple prior mammograms including spot magnification views most recently in August 2016 and January2018. Right breast findings: Digital diagnostic views of the right breast were obtained with standard 3-D/synthesized 2-D technique, supplemented with spot compression magnification craniocaudal and true lateral views. The breast tissue is extremely dense, limiting interpretation. There are multiple groups of calcifications. In the most anterior aspect of the right breast, this grouping is coarse and heterogeneous and fairly stable in appearance to prior magnification views from one year ago. Left breast findings: Digital diagnostic views of the left breast were obtained with standard 3-D/synthesized 2-D technique, supplemented with spot compression magnification views in craniocaudal and true lateral projections. The breast tissue is extremely dense, limiting interpretation. There are is a large regional grouping of amorphous calcifications located in the upper outer quadrant left breast. These demonstrate no detectable change since prior imaging of one year ago. Impression right breast: Likely benign, BI-RADS Category 3. Impression left breast: Likely benign, BI-RADS Category 3. Recommendation: 1. Bilateral spot magnification views to be obtained in one year at the time of annual bilateral mammography. 2. This patient has provided information on her clinical history questionnaire to suggest that she may benefit from breast cancer risk assessment. If this has not yet been performed, consideration should be given to referral to the High Risk Clinic at the [facility] ([phone]) for risk management. If this patient's calculated lifetime risk of breast cancer is greater than 20%, then according to the [place] [employer] guidelines, annual MRI screening is recommended in addition to mammography. If lifetime risk of breast cancer is less than 20%, given extreme breast density, supplementary screening with ultrasound would be recommended. This examination was interpreted with the aid of computer-assisted detection (CAD) technology. Results and recommendations were discussed with the patient by the technologist at the time of the exam. Overall assessment: BI-RADS Category Assessment 3: Probably benign. Assessment: Heike presents to the high-risk clinic to establish care due to her family history of breast cancer. She also has a personal history of dense breast tissue. Patient's mother was diagnosed with DCISat age 78. She was treated with lumpectomy and radiation. Patient's maternal grandmother was diagnosed with breast cancer in her 50s and underwent a mastectomy. Patient and I discussed different risk assessment models and variability among them. Patient's lifetime risk is elevated above population's risk due to her family history however it is <20% when using at least one risk assessment model that is largely dependent on family history (JULES, version 8). This is calculated using family history and competing mortality. As a result, she does not meet criteria for a breast MRI. Patient had had a six-month follow up mammogram to evaluate bilateral calcifications performed on 03/06/19 which was readas BI-RADS 3-probably benign. Radiology has recommended bilateral spot magnification views at the time of her annual bilateral mammogram. We did discuss that her breast tissue was noted to be extremelydense on her imaging. I have suggested that she supplement her annual mammogram with a high risk screening ultrasound due to her current density. Patient was agreeable with this. I have encouraged her to discuss coverage of this with her insurance. Patient does understand that with the COVID-19 pandemic that this will likely not be scheduled immediately. Patient's breast exam today was without any concerning findings. Patient did discuss other chronic issues today (not related to the breast) which have been discussedabove. She was encouraged to follow up with her PCP and ortho regarding this. Plan: 1. Schedule mammogram, due 02/2020 2. Schedule HR screening ultrasound, next available (patient understands that due to the COVID-19 pandemic, this will likely not be scheduled immediately) 3. Return to clinic in February 2020 (after mammogram). Patient can see her PCP or her GOLF PROFESSIONAL 6 months after that for an additional clinical breast exam. 4. Encouraged patient to practice breast awareness and report any changes or new concerns to our office. 5. Follow up with PCP Patient was seen for 45 minutes and 30 minutes were spent in face to face counseling regarding family history of breast cancer and risk of occurrence. Screening plan was discussed as above. I was directly supervised by our clinic physician, Dr. Oh, who was in the suite and immediately available for the entire time for the above documented service was provided. Encounter Diagnoses Name Primary? Family history of breast cancer Yes ??? Dense breast tissue on mammogram Amaya Rand PA-C No orders of the defined types were placed in this encounter. documented in this encounter Plan of Treatment Not on filedocumented as of this encounter Procedures Procedure Name Priority Date/Time Associated Diagnosis Comme nts ORDERS - SCANNED 04/18/2020 6:22 EST documented in this encounter Visit Diagnoses Diagnosis Family history of breast cancer - Primar y Family history of malignant neoplasm of breast Dense breast tissue on mammogram documented in this encounter Historical Medications This list may reflect changes made after this encounter. Medication Sig Dispensed Refills Start Date End Date ascorbic acid, vitamin C, Take 500 mg by mouth 0 08/29/2021 (VITAMIN C) 500 mg tablet daily. added in this encounter Orders Admission Count Last Ordered Date First Ordered Date ORDERS - SCANNED 1 04/18/2020 documented in this encounter Care Teams Software Firmware Engineer Relationship Specialty Start Date End Date Mere Gonzales MD PCP - General 10/05/17 07/30/20 [address] [place] [phone] documented as of this encounter
--- OUTSIDE RECORDS SUMMARY | 2021-11-28 01:51 | XMS_ITS | Encounter Summary ---
:1965 Author Organization [facility] Address [address] [place] [address] Care Team Providers Name Role Phone Rosalie Cannon PA-C Primary Care Provider Reason for Visit Reason Onset Date Comments COVID-19 12/25/2020 Encounter Details Date Type Department Care Team Description 12/25/2020 Telephone [facility] Adult Rosalie Cannon PA-C COVID-19 Primary Care - [place] [address] [facility] [place] [phone] (Wo rk) Social History Tobacco Use [...] Telephone Encounter - Marissa Howard RN - 12/26/2020 1037 EDT Call to Patient Relayed message per rosalie cannon Pt declines want to get covid tested. Test cx Patient expressed understanding with no barriers No additional questions or concerns to be addressed at this time. elephone Encounter - Rosalie Cannon PA-C - 12/26/2020 0724 EDT I have reviewed the messages. Please call Heike, Let her know that it is virtually certain that she does have COVID if her has it and they have been together----and she is now sick. She can be retested if she wants conclusive evidence that she does have Covid. Please review standard recommendations for Covid self-care at home, and reviewed reasons for her to call for additional guidance or seek emergency care. Thank you, Rosalie Reynolds--I ordered a Covid test if she wants to go to get tested. If not, I can cancel it. elephone Encounter - Marissa Howard RN - 12/25/2020 1100 EDT Call to pt States she got tested at [facility] emergency department ([facility]) Pt got results back as well has been the one that was exposed to coworker. He is sick now Pt's sx started on Wednesday. Was just fatigued on wednesday when she was tested Chills, temp,. Loss tast of smell Preliminary screening Do you have fever? Yes, subjective. High of 102.7 Do you have SOB? No Do you have cough? Yes Do you have loss of sense of smell or taste? Yes Have you had close contact (within 6 feet) with a person under investigation or a person confirmed to have COVID-19, within the past 14 days. Yes - Confirmed COVID-19. Date of last contact: Exposure risk - Higher risk if within 14 days Any recent travel out of state? None Date: Complete the below information to determine priority of testing. Patient risk of illness Is patient >65 yrs? No Do you have a chronic medical condition (CKD, HTN, DM, COPD, Obesity, CHF, etc)? Yes Are you on dialysis? No Are you immunocompromised? No Are you ? No Risk of transmission Do you work in healthcare facility (hospital, clinic, detention)? No If healthcare worker, ask them to notify employee health. Are you an immediate family member of a healthcare worker? No Is patient incarcerated? No Is patient a detention resident? No Do you live with a vulnerable patient (ex: many chronic illnesses, immunocompromised)? No Do you work with vulnerable patients (ex: assisted or penitentiary)? No Do you work in food sales clerk, grocery store, or pharmacy? No Are you able to rehabilitation worker? No Day of symptom onset: Wednesday with fatigue but really Wednesday with sx Preferred phone No: [phone] City/Town of residence: [place] Pt states she does not want to get tested as she just feels so poorly. Declined need for video visit. Pt will quarantine from her start of sx which she will say was last week 12/19. Pt advised the end of her 10 day quarantine is Friday 12/29 Discussed tx with otc medications in meantime FYI to rosalie cannon elephone Encounter - Isatu Watt - 12/25/2020 5722 EDT Reason for Call: COVID-19 Summary/Symptoms: patient and her are both ill. tested positive last wednesday for covid, she did not (negative). Both are still very sick. States she has had symptoms (cough fatigue, fever, chills) Since last Wednesday and continues to get worse. She would like to talk to something. Would like guidance and whether or not she should have another test. Onset and Duration: end of last week Does the patient have a computer, laptop or smart phone with high speed & video capability? N/A If so, would they be interested in doing a video visit via Zoom? N/A Appointment Offered? No Isatu Watt 12/25/2020 9:51 documented in this encounter Plan of Treatment Not on filedocumented as of this encounter Visit Diagnoses Diagnosis Exposure to confirmed case of COVID-19 - Primary Viral illness Unspecified viral infection, in conditio ns classified elsewhere and of unspecified site documented in this encounter Care Teams Differential Tester Relationship Specialty Start Date End Date Rosalie Cannon PA-C PCP - General Internal Medicine - Primary 07/31/20 [address] [place] [phone] documented as of this encounter
--- OUTSIDE RECORDS SUMMARY | 2021-11-28 01:51 | XMS_ITS | Encounter Summary ---
:1965 Author Organization [facility] Address [address] [place] [address] Care Team Providers Name Role Phone Mere Gonzales MD Primary Care Provider Reason for Visit Reason Onset Date Comments Appointment Related 11/06/2019 Encounter Details Date Type Department Care Team Description 11/06/2019 [facility] Britney Huddleston Appointment Related Imaging Mammography - [address] [place] [address] [place], [place] [id number] Social History Tobacco Use Types Packs/Day Years [...] this encounter Miscellaneous Notes Telephone Encounter - Britney Huddleston - 11/06/2019 1421 EDT LM for patient to call us back. documented in this encounter Plan of Treatment Not on filedocumented as of this encounter Visit Diagnoses Not on filedocumented in this encounter Care Teams Manager Risk Management Relationship Specialty Start Date End Date Mere Gonzales MD PCP - General 10/05/17 07/30/20 [address] [place] [phone] documented as of this encounter
--- OUTSIDE RECORDS SUMMARY | 2021-11-28 01:51 | XMS_ITS | Encounter Summary ---
:1965 Author Organization [facility] Address [address] [place] [address] Care Team Providers Name Role Phone Mere Gonzales MD Primary Care Provider Reason for Visit Reason Onset Date Comments Appointment Related 11/22/2019 Encounter Details Date Type Department Care Team Description 11/22/2019 [facility]phone [facility] Breast Imaging Edward Aldana Appointment Related Mammography - [place] [address] [place] [address] Social History Tobacco Use Types [...] Notes Telephone Encounter - Ellen Aldana - 11/22/2019 1051 EDT Left message for patient to call me back documented in this encounter Plan of Treatment Not on filedocumented as of this encounter Visit Diagnoses Not on filedocumented in this encounter Care Teams Carry Out Clerk Relationship Specialty Start Date End Date Mere Gonzales MD PCP - General 10/05/17 07/30/20 [address] [place] [phone] documented as of this encounter
--- OUTSIDE RECORDS SUMMARY | 2021-11-28 01:52 | XMS_ITS | Encounter Summary ---
:[address] [facility] Address [address] [place] [address] Care Team Providers Name Role Phone Mere Gonzales MD Primary Care Provider Reason for Visit Reason Comments Other Encounter Details Date Type Department Care Team Description 10/28/2018 [facility] Adult Zenobia Hawkins PA-C Other Primary Care - [address] [address] Social History Tobacco Use Types Packs/Day [...] mg TAKE ONE TABLET BY 90 Tab 1 02/20/2019 tablet MOUTH EVERY DAY documented in this encounter Miscellaneous Notes Telephone Encounter - Yany Foss RN - 10/28/2018 1354 EDT Requested Prescriptions Pending Prescriptions Disp Refills ??? amLODIPine (NORVASC) 5 mg tablet [Pharmacy Med Name: AMLODIPINE BESYLATE 5 MG TAB] 90 Tab 1 Sig: TAKE ONE TABLET BY MOUTH EVERY DAY Pharmacy: [facility] Last Refill Date: 04/25/2018 with three month supply Last Visit Date: 09/21/2018 Next Non-Acute Visit Date Scheduled with Care Team: Yes. 11/18/2018 YANY FOSS RN 10/28/2018 13:55 documented in this encounter Plan of Treatment Not on filedocumented as of this encounter Visit Diagnoses Not on filedocumented in this encounter Discontinued Medications Medication Sig Discontinue Reason Start Date End Date amLODIPine (NORVASC) 5 Take 1 tablet by Therapy completed 9 10/28/2018 mg tablet mouth daily. documented as of this encounter Care Teams Felt Machine Mechanic Relationship Specialty Start Date End Date Mere Gonzales MD PCP - General 10/05/17 07/30/[address] [place] [phone] documented as of this encounter
--- OUTSIDE RECORDS SUMMARY | 2021-11-28 01:52 | XMS_ITS | Encounter Summary ---
:1965 Author Organization [facility] Address [address] [place] [address] Care Team Providers Name Role Phone Mere Gonzales MD Primary Care Provider Encounter Details Date Type Department Care Team Description 08/22/2018 Hospital Encounter [facility] 2 [place], [place] [address] [place] [phone] (Wo rk) Social History Tobacco Use Types [...] making decisions? documented as of this encounter Discharge Diagnoses Diagnosis R92.1 Mammographic calcification found o n diagnostic imaging of breast-R92.1[ICD-10-CM] documented in this encounter Medications at Time of Discharge Medication Sig Dispensed Refills Start Date End Date amLODIPine (NORVASC) 5 mg Take 1 tablet by 90 tablet 0 0305/201810/28/2018 tablet mouth daily. aspirin (ASPIRIN LOW DOSE) Take 81 mg by 0 09/16/2020 81 mg EC tablet mouth daily. cyanocobalamin (VITAMIN Take 500 mcg by 0 08/29/2021 B-12) 500 mcg tablet mouth daily. dextroamphetamine-amphetam Take 1 tablet by 28 tablet 0 09/14/2018 ine (ADDERALL) 15 mg mouth daily for tablet 28 days. Daily Max: 15 mg ergocalciferol, vitamin Take by mouth. 0 08/05/2020 D2, (VITAMIN D ORAL) gabapentin (NEURONTIN) 300 Take 1 capsule by 270 capsule 3 0 06/17/2018 05/09/2019 mg capsule mouth every morning AND 2 capsules at bedtime. hydrOXYzine (ATARAX) 25 mg Take 1-2 tabs at 60 Tab 0 09/14/2018 tablet bedtime prn anxiety magnesium oxide (MAG-OX) Take 400 mg by 0 08/05/2020 400 mg (241.3 mg mouth daily. magnesium) tablet meloxicam (MOBIC) 15 mg Take 1 Tab by 90 Tab 3 8 09/21/2018 tabletIndications: Primary mouth daily. 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 omeprazole (PRILOSEC) 20 Take 1 Cap by 90 Cap 3 02/22/20 18 09/21/2018 mg capsuleIndications: mouth daily. History of gastroesophageal reflux (GERD) oxybutynin (DITROPAN-XL) 5 Take 1 Tab by 90 Tab 3 201709/14/2018 mg CR tablet mouth daily. documented as of this encounter Discharge Disposition Disposition Code Departure Means Destination Auto Discharge Home documented in this encounter Plan of Treatment Not on filedocumented as of this encounter Visit Diagnoses Not on filedocumented in this encounter Care Teams Facing Baster Relationship Specialty Start Date End Date Mere Gonzales MD PCP - General 10/05/17 07/30/20 [address] [place] [phone] documented as of this encounter
--- OUTSIDE RECORDS SUMMARY | 2021-11-28 01:52 | XMS_ITS | Encounter Summary ---
:1965 Author Organization [facility] Address [address] [place] [address] Care Team Providers Name Role Phone Mere Gonzales MD Primary Care Provider Encounter Details Date Type Department Care Team Description 09/26/2018 Hospital Encounter [facility] Manjula Potts, Medical Office [facility] [phone] [address] [place], [place] [address] (Wo rk) Social History Tobacco Use Types [...] as of this encounter Discharge Diagnoses Diagnosis M54.6 Pain in thoracic spine-M54.6[ICD-1 0-CM] G89.29 Other chronic pain-G89.29[ICD-10- CM] documented in this encounter Medications at Time of Discharge Medication Sig Dispensed Refills Start Date End Date amLODIPine (NORVASC) 5 mg Take 1 tablet by 90 tablet 0 05/201810/28/2018 tablet mouth daily. aspirin (ASPIRIN LOW Take 81 mg by 0 0 09/16/2020 DOSE) 81 mg EC tablet mouth daily. cyanocobalamin (VITAMIN Take 500 mcg by 0 08/29/2021 B-12) 500 mcg tablet mouth daily. dextroamphetamine-ampheta Take 1 Tab by 28 Tab 0 019 10/25/2018 mine (ADDERALL) 15 mg mouth daily for 28 tablet days. Daily Max: 15 mg ergocalciferol, vitamin Take by mouth. 0 08/05/2020 D2, (VITAMIN D ORAL) gabapentin (NEURONTIN) Take 1 capsule by 270 capsule 3 06/1705/09/2019 300 mg capsule mouth every morning AND 2 capsules at bedtime. hydrOXYzine (ATARAX) 25 Take 1-2 tabs at 60 Tab 3 201805/22/2019 mg tablet bedtime prn anxiety magnesium oxide (MAG-OX) Take 400 mg by 0 08/05/2020 400 mg (241.3 mg mouth daily. magnesium) tablet oxybutynin (DITROPAN-XL) Take 1 Tab by 90 Tab 3 09/15/19 19 09/18/2019 5 mg CR tablet mouth daily. traZODone (DESYREL) 50 mg Take 1 Tab by 30 Tab 2 019 01/16/2019 tablet mouth at bedtime. documented as of this encounter Discharge Disposition Disposition Code Departure Means Destination Home or Self Custodial documented in this encounter Plan of Treatment Not on filedocumented as of this encounter Visit Diagnoses Not on filedocumented in this encounter Care Teams Assistant Fitness Manager Relationship Specialty Start Date End Date Mere Gonzales MD PCP - General 10/05/17 07/30/20 2 [place] [phone] documented as of this encounter
--- OUTSIDE RECORDS SUMMARY | 2021-11-28 01:52 | XMS_ITS | Encounter Summary ---
:1965 Author Organization [facility] Address [address] [place] [address] Care Team Providers Name Role Phone Mere Gonzales MD Primary Care Provider Reason for Visit Reason Onset Date Comments Medication Management 09/15/2018 Encounter Details Date Type Department Care Team Description 09/15/2018 Telephone [facility] Mere Gonzales Medication Management Primary Care - [place] Jimenez MD [address] [place] [address] [place], [place] [phone] Social History Tobacco Use Types Packs/Day [...] encounter Miscellaneous Notes Telephone Encounter - Barbie Castillo RN - 09/15/2018 1650 EDT New script instructions given pharmacist at [facility] in order to correctly titrate gabapentin dose up. See below: Take one capsule at hx for 3 days ; then 300mg in am x3 days; then 1 capsule in am; and 2 caps at hs. Left message on Hello[employer]ax[employer] for kaya that script refill sent to gabapentin with the right dose and titration schedule; since she has been off the gabapentin for at least a few days. elephone Encounter - Yasmeen Jo, YAZAN Penny - 09/15/2018 1646 EDT It looks like pt has been taking 300mg 1 in AM, 2 PM. If she has been out of this med - Then resume 1 cap qHS x 3 days, then add 300mg in AM x 3 more days, then finally resume 1 cap in AM,2 caps at qHS. elephone Encounter - Barbie Castillo RN - 09/15/2018 1614 EDT Kaya calls back to discuss gabapentin Her [facility] ; [place] is her pharmacy Kaya has been taking one capsule in the morning. She states she picks up what ever the pharmacy gives her. She is out of medication she cannot remember how much she takes or what color the capsule is. Her life is very complicated with so many medications; and she is leaving for out of town and wants this fixed. Call to pharmacy'; spoke with [facility]; review of all scripts shows: Verified : gabapentin 300mg; take 1 capsule by mouth every morning and 2 capsules at bedtime. #270; 4,refills; Pharmacy has not filled any of this scripts; Hayes and yellow capsules. Pharmacy has filled an old script; the initial titration schedule 02/17/2018; gabapentin 300mg; take1 capsule by mouth at bedtime x 1 wk; then 2 capsules at bedtime x1 wk; then 1 capsule in am; and 2 capsules at bedtime. Last filled #100; picked up in May ; before new script above came in. Nothing left on this old script. Newer script : 09/14; gabapentin 100mg; # 30; take one capsule 3 times a day. Forward to dr gonzales ; to verify; dose of gabapentin she wishes patient to be on; since the patient is not sure what dose she is taking. elephone Encounter - Barbie Castillo RN - 09/15/2018 3101 EDT Last ov : 08/26/18; with dr gonzales; gabapentin 300mg ; one capsule by mouth every morning and 2 capsules at bedtime. 09/09/18 Kaya Salguero would like a refill of the following medications: ?gabapentin (NEURONTIN) 300 mg capsule [Mere Gonzales MD] ?Patient Comment: a question ? ?? Will this medication help with the pain that I am experiencingin my lower back and neck,shoulder, arm, hand area due to whatever is going on with my spine/nerves???if so I would like a refill, if not, I would like a call to talk about going off of it. ?I noticed an error in the dosing, I had been taking 300mg, 2 at night and 1 in morning =300mg. ??The last script I received was 300mg and I have been taking in the morning only. ??I thought it was only a 100mg capsule. ?? Preferred pharmacy: [id number] -refill requested; 09/09/18: dr gonzales states; call patient ot clarify dose she is taking; in her message reads like 200mg am and 100mg at night for total of 300mg; we need to correct this script if so. This is to help her nerve pain. 09/14/18: gabapentin 100mg ; one cap by mouth 3 times daily was ordered LM for kaya to call triage as soon as possible to verify gabapentin dosing. elephone Encounter - Apple Blanco - 09/15/2018 1226 EDT Reason for Call: Medication Management Summary/Symptoms: Pt is confused as to what dosage of Gabapentin she should be taking. On 06.17.18 we Rx'd 300 mg, 1 in the AM, 2 HS. On 09.14.18 we Rx'd 100 mg, 1 TID. The pt says she has not had any since Wednesday, she is not sure what she should be taking when. Please also see the 09.09.18 refill encounter Onset and Duration? ? Appointment Offered? N/A Apple Blanco 09/15/2018 12:27 documented in this encounter Plan of Treatment Not on filedocumented as of this encounter Visit Diagnoses Not on filedocumented in this encounter Discontinued Medications Medication Sig Discontinue Reason Start Date End Date gabapentin (NEURONTIN) Take 1 Cap by Patient Stopped Taking 019 09/15/2018 100 mg capsule mouth 3 times daily. documented as of this encounter Care Teams Livestock Farmworker Relationship Specialty Start Date End Date Mere Gonzales MD PCP - General 10/05/17 07/30/[address] [place] [phone] documented as of this encounter
--- OUTSIDE RECORDS SUMMARY | 2021-11-28 01:52 | XMS_ITS | Encounter Summary ---
:1965 Author Organization [facility] Address [address] [place] [address] Care Team Providers Name Role Phone Mere Gonzales MD Primary Care Provider Reason for Visit Reason Onset Date Comments Appointment Related 10/03/2018 Encounter Details Date Type Department Care Team Description 10/03/2018 Telephone [facility] Adult Mere Gonzales, Appointment Related Primary Care - [place] HERNÁNDEZ [address] [place] [address] [place], [place] [phone] (Wo rk) Social History Tobacco Use [...] this encounter Miscellaneous Notes Telephone Encounter - Judy Latham - 10/04/2018 1451 EDT Gave patient your message and gave her [facility] number since they are taking new patients. elephone Encounter - Mere Gonzales MD, MD - 10/04/2018 1340 EDT I can't do that because I'm not taking new patients. But also she should be seen by a primary care doctor in [place] because whatever is discussed needs to be followed filler leaf cutter long vs just one visit. I couldn't do much as a PCP with just one visit like that. elephone Encounter - Judy Latham - 10/03/2018 1516 EDT Patient's daughter is here for six weeks and patient asking if you would see her for a physical and go over medications. Daughter is 23 and moving to [place]. Patient states daughter is on medication for depression and anxiety. documented in this encounter Plan of Treatment Not on filedocumented as of this encounter Visit Diagnoses Not on filedocumented in this encounter Care Teams Tooth Polisher Relationship Specialty Start Date End Date Mere Gonzales MD PCP - General 10/05/17 07/30/[address] [place] [phone] documented as of this encounter
--- OUTSIDE RECORDS SUMMARY | 2021-11-28 01:52 | XMS_ITS | Encounter Summary ---
:[address] [facility] Address [address] [place] [address] Care Team Providers Name Role Phone Mere Gonzales MD Primary Care Provider Reason for Visit Reason Onset Date Comments Medications Refill 04/18/2019 Encounter Details Date Type Department Care Team Description 04/18/2019 Refill [facility] Adult Mere Gonzales, Medications Refill Primary Care - [place] HERNÁNDEZ [address] [place] [address] [place], [place] [phone] (Wo rk) Social History Tobacco Use [...] 1 Tab by mouth 28 Tab 0 04/18/2019 05/09/2019 ine (ADDERALL) 15 mg daily for 28 days. tablet Daily Max: 15 mg documented in this encounter Miscellaneous Notes Telephone Encounter - Andrae Tanner - 04/18/2019 5219 EST Adderall 15 mg [facility] - [address] Confirmed Pharmacy? Yes Patient out of medication? Yes: Needs Refill Now. Informed of 3 business day expectation. Last Refill Date: 03/07/19 Refills left? (explain exceptions requiring early refill) No Recent Visits Date Type Provider Dept 02/20/19 Office Visit Mere Gonzales MD [facility] 11/18/18 Office Visit Mere Gonzales MD [facility] 09/21/18 Office Visit Mere Gonzales MD [facility] 08/26/18 Office Visit Mere Gonzales MD [facility] 06/20/18 Office Visit Mere Gonzales MD [facility] 02/21/18 Office Visit Mere Gonzales MD [facility] 01/28/18 Office Visit Zenobia Hawkins PA-C [facility] 11/26/17 Office Visit Mere Gonzales MD [facility] 11/10/17 Office Visit Fidelina Arana PA-C [facility] 10/29/17 Office Visit Mere Gonzales MD [facility] Showing recent visits within past 540 days with a meds authorizing provider and meeting all other requirements Future Appointments Date Type Provider Dept 05/22/19 Appointment Mere Gonzales MD [facility] Care Showing future appointments within next 150 days with a meds authorizing provider and meeting all other requirements Future appointment: Already Scheduled Andrae Tanner 04/18/2019 14:42 documented in this encounter Plan of Treatment Not on filedocumented as of this encounter Visit Diagnoses Not on filedocumented in this encounter Discontinued Medications Medication Sig Discontinue Reason Start Date End Date dextroamphetamine-ampheta Take 1 Tab by mouth Reorder 03/07/19 20 04/18/2019 mine (ADDERALL) 15 mg daily for 28 days. tablet Daily Max: 15 mg documented as of this encounter Care Teams Lining Mechanic Relationship Specialty Start Date End Date Mere Gonzales MD PCP - General 10/05/17 07/30/20 [address] [place] [phone] documented as of this encounter
--- OUTSIDE RECORDS SUMMARY | 2021-11-28 01:52 | XMS_ITS | Encounter Summary ---
:1965 Author Organization [facility] Address [address] [place] [address] Care Team Providers Name Role Phone Mere Gonzales MD Primary Care Provider Reason for Referral Referral (Routine) - Authorization Not Required Specialty Diagnoses / Procedures Referred By Contact Refer red To Contact Psychology Diagnoses Memory loss Mere Gonzales MD [address] [phone] Referral ID Status Reason Start Expiration Visits Visits Date Date Requested Authorized [id number] Authorization Specialty 2 2 Not Required Services 9 Required Question Answer Age (19-60): Yes Is Kazakh the patient? Yes s first language: Is the patient an ETOH/Substance abuser: No Has the patient suffered a CVA: No Has the patient suffered a moderate to severe TBI: No Does the patient have a known co-morbid psychiatric No illness: Does the patient have any physical (motor), visual, or No speech limitations that would impede their ability to read or write: Please indicate the reason for your referral: Clarific ation of diagnosis Reason for Visit Reason Comments Follow-up Encounter Details Date Type Department Care Team Description 11/18/2018 Office Visit [facility] Janet, Mere Chron ic bilateral back pain, unspecified back location (Primary Dx); Adult Primary Care - [place], Mass of right lower extremity; [place] [address] Moderate episode of recurrent major depr essive disorder ([facility]); [address] [place], [place] [address] [place] [phone] Social History Tobacco Use Types Packs/Day [...] Sign Reading Time Taken Comments Blood Pressure 112/68 11/18/2018 1323 EDT Pulse 70 11/18/2018 1323 EDT Temperature 35.9 ??C (96.7 ??F) 11/18/2018 1323 EDT Respiratory Rate 14 11/18/2018 1323 EDT Oxygen Saturation - - Inhaled Oxygen Concentration - - Weight 51.8 kg (114 lb 3.2 oz) 11/18/2018 1323 EDT Height - - Body Mass Index 20.23 09/21/2018 1318 EDT documented in this encounter Functional Status [...] making decisions? documented as of this encounter Patient Instructions Patient InstructionsMere Gonzales MD, MD - 11/18/2018 13:15 EDT Call the neurologist to set up an appointment EDIE Call orthopedist to reschedule (?) Call and cancel the MRI for Wednesday. documented in this encounter Ordered Prescriptions Prescription Sig Dispensed Refills Start Date End Date dextroamphetamine-amphetam Take 1 Tab by mouth 28 Tab 0 11/21/2018 12/29/2018 ine (ADDERALL) 15 mg daily for 28 days. tablet Daily Max: 15 mg documented in this encounter Progress Notes Mere Gonzales MD, MD - 11/18/2018 1315 EDT Heike Salguero, 53 y.o. female PRIMARY CARE PROVIDER: Mere Gonzales CHIEF COMPLAINT: Chief Complaint Patient presents with ??? Follow-up HISTORY OF PRESENT ILLNESS: Heike Salguero is a 53 y.o. female here for follow-up. She is seeing orthopeics for her back and they have suggested pursuing CTS evaluation. She is down to 300mg BID on the gabapentin. Has significant loss of strength and clumsiness in her hands at times with some pain in the hands bilaterally. She notices chronic short term memory and recall problems. 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 Also that her family is noticing it more and she's been self conscious and worried about her memory. She doesn't think it's necessarily the ADD. Past medical, surgical, social and family history have been reviewed. Problem list reviewed. 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 She drinks 1 glass of wine /week. Nonsmoker. REVIEW OF SYSTEMS: A ten point ROS was performed and was negative except for pertinent positives in the HPI MEDICATION REVIEW: Medications reviewed & updated. ALLERGIES: Allergies as of 11/18/2018 ??? (No Known Allergies) PHYSICAL EXAM: Vitals: BP 112/68 (BP Cuff Location: Right arm, Patient Position: Sitting, BP Cuff Sizes: Adult, regular) Pulse 70 Temp 35.9 ??C (96.7 ??F) (Tympanic) Resp 14 Wt 51.8 kg (114 lb 3.2 oz) BMI 20.23 kg/m?? Gen - NAD Psych - alert and oriented x 3, normal mood and affect Neuro - CN II-XII grossly intact, normal gait ASSESSMENT / PLAN : 53 y.o. female here for follow-up. 1. Severe chronic back pain/radicular symptoms - followed by orthopedics, neurology visit should happen soon as well. Considering CTS testing which I think would be agood idea. - Continue gabapentin 2. R buttocks lesion - the MRI is going to be 1800 dollars so we've decided todefer. It's 2x3 cm in the exact area where her stimulator was so I think this is unlikely to be cancer 3. Memory loss - MOCA was 2830. Provided reassurance but she'd like to pursue memory testing. I have ordered TSH, syphilis and B12 also. 4. Depression/Anxiety - declines therapy at this time but she may be open to it in the future. 5. Raynauds - symptoms are much improved with norvasc. 6. ADD - continue adderall. She knows q6mo visits are necessary 7. Frequent UTIs/Incontinence with recent kidney stone - followed by the continence center and urology. - continue oxybutynin, gabapentin for pain 8. Factor V leiden - followed by steve, on daily ASA Health Maintenance: Pap smear - UTD Jan 2015 Mammogram - 6 mo f/u due in July Colonoscopy - UTD Nov 2017, due 10 yrs Tdap - UTD Nov 2017 Shingrix - discuss when restocked Basic labs/lipids - UTD Oct 2017 documented in this encounter Plan of Treatment Scheduled Referrals Name Type Priority Associated Order Schedule Diagnoses AMB CONS/FOLLOW UP Outpatient Routine Memory loss Ordered: NEUROPSYCHOLOGICAL TESTING Referral 0 11/18/2018 & ASSESSMENT documented as of this encounter Results VITAMIN B12 (02/07/2019 11:29 EST) Pathologist Sig nature Vitamin B12 895 211 - 911 pg/mL [facility] Specimen Blood Performing Organization Address City/State/ZIP Code Phon e Number [facility] [address] [place] [address] SERVICES TSH (02/07/2019 11:29 EST) Pathologist Sig nature TSH 1.73 0.47 - 4.68 uIU/mL [facility] Specimen Blood Narrative [facility] - 02/07/2019 13:18 EST The results of this assay can be falsely lowered due to the consumption of Biotin. Performing Organization Address City/State/ZIP Code Phon e Number [facility] [address] [place] [address] SERVICES SYPHILIS SEROLOGY (02/07/2019 11:29 EST) Pathologist Sig nature Syphilis Serology Negative Negative [facility] Specimen Blood Performing Organization Address City/[facility]/ZIP Code Phon e Number [facility] [address] [place] [address] SERVICES documented in this encounter Visit Diagnoses Diagnosis Chronic bilateral back pain, unspecified back location - Primary Mass of right lower extremity Moderate episode of recurrent major depr essive disorder (HCC) Memory loss documented in this encounter Discontinued Medications Medication Sig Discontinue Reason Start Date End Date dextroamphetamine-ampheta Take 1 Tab by mouth Reorder 10/26/19 19 11/18/2018 mine (ADDERALL) 15 mg daily for 28 days. tablet Daily Max: 15 mg documented as of this encounter Care Teams Firmware Test Engineer Relationship Specialty Start Date End Date Mere Gonzales MD PCP - General 10/05/17 07/30/20 [address] [place] [phone] documented as of this encounter
--- OUTSIDE RECORDS SUMMARY | 2021-11-28 01:52 | XMS_ITS | Encounter Summary ---
:1965 Author Organization [facility] Address [address] [place] [address] Care Team Providers Name Role Phone Mere Gonzales MD Primary Care Provider Encounter Details Date Type Department Care Team Description 06/24/2018 Orders Only [facility] Carmona Chi, MD [address] [address] [address], [place] [phone] (Wo rk) Social History Tobacco [...] on filedocumented in this encounter Care Teams Summons Server Relationship Specialty Start Date End Date Mere Gonzales MD PCP - General 10/05/17 07/30/20 [address] [place] [phone] documented as of this encounter
--- OUTSIDE RECORDS SUMMARY | 2021-11-28 01:52 | XMS_ITS | Encounter Summary ---
:1965 Author Organization [facility] Address [address] [place] [address] Care Team Providers Name Role Phone Mere Gonzales MD Primary Care Provider Reason for Referral Radiology Services (Routine) - Authorization Not Required Specialty Diagnoses / Procedures Referred By Contact Refer red To Contact Diagnoses Breast calcifications Mere Gonzales MD Procedures MA MAMMO DIAG BILAT DIGITAL [address] [place] [address] Referral ID Status Reason Start Expiration Visits Visits Date Date Requested Authorized [id number] Authorization Not 08/16/2018 1 1 Required Encounter Details Date Type Department Care Team Description 08/16/2018 Orders Only [facility] Mree Gonzales Adult Primary Care - MD Barabra (Primary Dx) [place] [address] [address] [place] [phone] Social History Tobacco Use Types [...] Name Priority Date/Time Associated Diagnosis Comme nts IRAIDA MAMMO DIAG Routine 08/22/2018 13:34 Breast calcifications R esults for this BILAT DIGITAL EDT procedure are in the results section. documented in this encounter Results MA MAMMO DIAG BILAT DIGITAL (08/22/2018 13:34 EDT) Anatomical Region Laterality Modality Other Specimen Narrative [facility] ACC/MAIN [place] MPUS - 08/22/2018 16:54 EDT BILATERAL 2D DX OR AV ??MAMMO EXAM ??08/22/2018 1:34 PM Signs and Symptoms/Comments: R92.1-Mammographic calcification found o n diagnostic imaging of [id number]; six month follow up bilat eral breast calcifications upper outer quadrants Comparison: Mammograms dated January 2018, December 2017, December 2014, August 2011, March 2009 Technique: 2-D spot magnification views were obtain ed of the left breast in CC and ML projections.2-D spot magnificatio n views were obtained of the right breast in CC and ML projections. Findings: Tissue Density: The breast tissue is het erogeneously dense, which may obscure small masses. RIGHT BREAST MAMMOGRAM: There are several groups of stable appea ring calcifications in the upper, outer breast. Some of these group s appear coarse heterogeneous, whereas some appear more amorphous and layering. Overall, these appear unchanged from Jan, continuing to favor a probably benign process. There i s no suspicious mass or unexplained architectural distortion. LEFT BREAST MAMMOGRAM: Faint amorphous calcifications are seen in the upper, outer left breast, which are not significantly may ged from January 2018. This continues to favor a probably benign pro cess. There is no suspicious mass or unexplained architectural distor tion. IMPRESSION RIGHT BREAST: BI-RADS 3: ??Probably benign. IMPRESSION LEFT BREAST: BI-RADS 3: ??Probably benign. RECOMMENDATIONS: Probably benign bilateral breast calcifi cations are stable from January 2018, continuing to favor a pro bably benign process. Therefore, follow-up imaging in 6 months with 2-D magnified CC and ML spot compression views is recommended to confirm ongoing stability. At that time, the patient aravind l be due for bilateral full-field 3-D/2-D synthesized CC and ML O mammography of the bilateral breast as well. The sterile processing technologist discussed t he radiologist's imaging interpretation and recommendations with the patient at the time of the examination. OVERALL BI-RADS ASSESSMENT: BI-RADS 3: ??Probably benign. These results will be communicated to yo ur patient via a lay letter from Radiology. I have personally reviewed the images an d the above interpretation and agree with the findings. Procedure Note Ashley Mercado MD, - 08/22/2018 BILATERAL 2D DX OR AV MAMMO EXAM 9 1:34 PM Signs and Symptoms/Comments: R92.1-Mammographic calcification found o n diagnostic imaging of [id number]; six month follow up bilat eral breast calcifications upper outer quadrants Comparison: Mammograms dated January 2018, December 2017, December 2014, August 2011, March 2009 Technique: 2-D spot magnification views were obtain ed of the left breast in CC and ML projections.2-D spot magnificatio n views were obtained of the right breast in CC and ML projections. Findings: Tissue Density: The breast tissue is het erogeneously dense, which may obscure small masses. RIGHT BREAST MAMMOGRAM: There are several groups of stable appea ring calcifications in the upper, outer breast. Some of these group s appear coarse heterogeneous, whereas some appear more amorphous and layering. Overall, these appear unchanged from Jan, continuing to favor a probably benign process. There i s no suspicious mass or unexplained architectural distortion. LEFT BREAST MAMMOGRAM: Faint amorphous calcifications are seen in the upper, outer left breast, which are not significantly may ged from January 2018. This continues to favor a probably benign pro cess. There is no suspicious mass or unexplained architectural distor tion. IMPRESSION RIGHT BREAST: BI-RADS 3: Probably benign. IMPRESSION LEFT BREAST: BI-RADS 3: Probably benign. RECOMMENDATIONS: Probably benign bilateral breast calcifi cations are stable from January 2018, continuing to favor a pro bably benign process. Therefore, follow-up imaging in 6 months with 2-D magnified CC and ML spot compression views is recommended to confirm ongoing stability. At that time, the patient aravind l be due for bilateral full-field 3-D/2-D synthesized CC and ML O mammography of the bilateral breast as well. The sterile processing technologist discussed t he radiologist's imaging interpretation and recommendations with the patient at the time of the examination. OVERALL BI-RADS ASSESSMENT: BI-RADS 3: Probably benign. These results will be communicated to yo ur patient via a lay letter from Radiology. I have personally reviewed the images an d the above interpretation and agree with the findings. Performing Organization Address City/State/ZIP Code Phon e Number [facility] RADIOLOGY ACC/MAIN [place] documented in this encounter Visit Diagnoses Diagnosis Breast calcifications - Primary Other (abnormal) findings on radiologica l examination of breast documented in this encounter Care Teams Billet Bed Operator Relationship Specialty Start Date End Date Mere Gonzales MD PCP - General 10/05/17 07/30/20 [address] [place] [address] documented as of this encounter
--- OUTSIDE RECORDS SUMMARY | 2021-11-28 01:52 | XMS_ITS | Encounter Summary ---
:1965 Author Organization [facility] Address [address] [place] [address] Care Team Providers Name Role Phone Mere Gonzales MD Primary Care Provider Reason for Visit Reason Onset Date Comments Appointment Related 07/04/2019 Encounter Details Date Type Department Care Team Description 07/04/2019 Telephone [facility] Adult Mere Gonzales, Appointment Related Primary Care - Tam HERNÁNDEZ [address] [place] [address] [place], [place] [phone] (Wo rk) Social History Tobacco Use [...] this encounter Miscellaneous Notes Telephone Encounter - Heather Mcdowell LPN - 07/04/2019 1342 EDT Called to set up a follow-up visit with no labs for 10/04/2019. Requested a call back to set up the follow-up. HEATHER MCDOWELL LPN 07/04/2019 13:44 documented in this encounter Plan of Treatment Not on filedocumented as of this encounter Visit Diagnoses Not on filedocumented in this encounter Care Teams Furnace Mechanic Relationship Specialty Start Date End Date Mere Gonzales MD PCP - General 10/05/17 07/30/20 [address] [place] [address] documented as of this encounter
--- OUTSIDE RECORDS SUMMARY | 2021-11-28 01:52 | XMS_ITS | Encounter Summary ---
:1965 Author Organization [facility] Address [address] [place] [address] Care Team Providers Name Role Phone Nayeli Gonzales MD Primary Care Provider Encounter Details Date Type Department Care Team Description 08/26/2018 Results Only [facility] Adult Nayeli Day MD Primary Care - [address] [phone] (Wo rk) Social History Tobacco Use Types [...] documented as of this encounter Miscellaneous Notes Result QuickNote - Nayeli Gonzales MD, MD - 08/26/2018 6899 EDT I have sent a [employer] message about the results. documented in this encounter Plan of Treatment Not on filedocumented as of this encounter Procedures Procedure Name Priority Date/Time Associated Diagnosis Comme nts PAP TEST- RESULT Routine 08/26/2018 0:00 EDT Resu lts for this ONLY procedure are i n the results section. documented in this encounter Results PAP TEST- RESULT ONLY (08/26/2018 0:00 EDT) Pathology Report: CYTOPATHOLOGY REPORT [facility] Reports generated via electronic interface contain christiano ginal data; SERVICES however they are lacking the format of the original re port. Caution should be taken when reading/interpreting unfo rmatted reports. Name: ? SHANEL EVANS BRICENO ? Accession #: ? [id number] ? : ? 1965 (Age: 6 2) ??F ?Collect Date: ? 2018 ? Location: ? GEX ? Receive Date: ? 08/29/2018 ? Provider: NAYELI GONZALES MD Copy to: ? Final Report SPECIMEN ADEQUACY ? Satisfactory for Evaluation - transformation zone component present GENERAL CATEGORIZATION ? Negative for Intraepithelial Lesion or Malignan cy ?? Other: Additional clinical i nformation: Back MRI with possible cervix polyps vs mass, not visualised on exam Additional clinical information: Z12.4 V76.2 Specimen/Source: ??Pap Test, Cervix/Endocervix, ThinPr ep Imaging System with manual evaluation Document reviewed and electronically signed by: ? Charlie Ellis, CT(ASCP) ? Report ??Date: 08/30/2018 14:09 HPV with Pap Test ? Date Ordered: ? 08/30/2018 ? Status: ?? S igned Out ?Date Complete: ? 08/31/2018 ? By: ??Sy stem Interface ? Date Reported: ? 08/31/2018 ? Interpretation RESULT: Negative for HPV. No E6 or E7 mRNA is detected from HPV types 16,18,31,3 3,35, 39,45,51,52,56,58,59,66, and 68 by forest patrolman media nilam amplification. Comments Document reviewed and electronically signed by: ? System Interface ? Report date: 08/31/2018 By the signature above, the attending physician certif ies that he/she has personally conducted a gross and/or microscopic examin ation of the described specimens and rendered or confirmed the above diagnosi s. End of Report Specimen Performing Organization Address City/State/ZIP Code Phon e Number [facility] [address] [place] [address] SERVICES documented in this encounter Visit Diagnoses Not on filedocumented in this encounter Care Teams Inhalation Therapist Relationship Specialty Start Date End Date Nayeli Gonzales MD PCP - General 10/05/17 07/30/[address] [place] [phone] documented as of this encounter
--- OUTSIDE RECORDS SUMMARY | 2021-11-28 01:52 | XMS_ITS | Encounter Summary ---
:[address] [facility] Address [address] [place] [address] Care Team Providers Name Role Phone Mere Gonzales MD Primary Care Provider Reason for Visit Reason Onset Date Comments Appointment Related 07/12/2019 Encounter Details Date Type Department Care Team Description 07/12/2019 Telephone [facility] Amaya Rand, Appointment Related Surgical Oncology - [place] [address] [address] [place], [place] [address] (Wo rk) Social History Tobacco [...] this encounter Miscellaneous Notes Telephone Encounter - Darline Del Rio - 07/12/2019 0858 EDT Pt has been scheduled in the High Risk Clinic with YAZAN Vinson on Wednesday, August 07, 2019 @ 8:00am. Pt is aware of Covid Precautions. Pt mailed confirmation letter and New Patient Forms. Darline Del Rio 07/12/2019 8:59 documented in this encounter Plan of Treatment Not on filedocumented as of this encounter Visit Diagnoses Not on filedocumented in this encounter Care Teams Medical Recruiter Relationship Specialty Start Date End Date Mere Gonzales MD PCP - General 10/05/17 07/30/20 [address] [place] [address] documented as of this encounter
--- OUTSIDE RECORDS SUMMARY | 2021-11-28 01:52 | XMS_ITS | Encounter Summary ---
:1965 Author Organization [facility] Address [address] [place] [address] Care Team Providers Name Role Phone Mere Gonzales MD Primary Care Provider Reason for Referral PT/OT/ST (Routine) - Closed Specialty Diagnoses / Procedures Referred By Contact Refer red To Contact Diagnoses Pain in both upper extremities Mere Gonzales MD [address] [place] [phone] Referral ID Status Reason Start Date Expiration Date Visits V isits Requested Authorized [id number] Closed Specialty 05/22/2019 1 1 Services Required Question Answer Reason for Request: chronic pain in the arms Practice Site (External Referral Only): [facility] ro[facility] Reason for Visit Reason Comments Follow-up Encounter Details Date Type Department Care Team Description 05/22/2019 Telemedicine [facility] Mere Gonzales Pain in both upper extremities (Primary Dx); Adult Primary Care - MD Barbara Leg edema [address] [address] [place] [phone] Social History Tobacco Use Types Packs/Day [...] Sig Dispensed Refills Start Date End Date hydrOXYzine (ATARAX) 25 Take 1-2 tabs BID 180 Tab 3 05/2101/03/2021 mg tablet prn itching or anxiety dextroamphetamine-ampheta Take 1 Tab by mouth 28 Tab 0 0 05/16/2019 06/13/2019 mine (ADDERALL) 15 mg daily for 28 days. tablet Daily Max: 15 mg gabapentin (NEURONTIN) Take 1 Cap by mouth 270 Cap 3 04/2204/25/2020 300 mg capsule every morning AND 2 Caps at bedtime. traZODone (DESYREL) 50 mg Take 1 Tab by mouth 30 Tab 2 0 05/09/2019 08/16/2019 tablet at bedtime. documented in this encounter Progress Notes Mere Gonzales MD - 05/22/2019 0915 EDT Telemedicine: She feels disappointed with the recent visits with orthopedics but had a really great experience with a local physical therapist. She cut the gabapentin down to 1 pill at night. She has chronic intermittent swelling in the veins around the legs. Not painful. She has tried comp stockings but feels that it just pushes the fluid to the knees. We discussed she'd likely need thigh highs but they seem uncomfortable. She is interested in trying PRN lasix but would like to wait on this for now. This doesn't happen everyday. Her mood is okay despite the pandemic. Her memory clinic appt was pushed Back to August. I spent a total of >30 minutes with Heike Salguero today and >30 minutes of that time wasspent in counseling and coordination of care as described in the progress note. Patient has given verbal consent to a telephone visit today. documented in this encounter Plan of Treatment Scheduled Referrals Name Type Priority Associated Diagnoses Order S chedule AMB CONS/FOLLOW UP Outpatient Referral Routine Pain in both up per Expected: PHYSICAL THERAPY extremities 05/22/2019 (Approximate) documented as of this encounter Visit Diagnoses Diagnosis Pain in both upper extremities - Primary Leg edema Edema documented in this encounter Discontinued Medications Medication Sig Discontinue Reason Start Date End Date amLODIPine (NORVASC) 5 Take 1 Tab by mouth 02/20/2019 05/09/2019 mg tablet daily. traZODone (DESYREL) 50 Take 1 Tab by mouth Reorder 01/16/2019 05/09/2019 mg tablet at bedtime. gabapentin (NEURONTIN) Take 1 capsule by Reorder 06/17/2018 05/09/2019 300 mg capsule mouth every morning AND 2 capsules at bedtime. dextroamphetamine-amphet Take 1 Tab by mouth Reorder 0 05/09/2019 amine (ADDERALL) 15 mg daily for 28 days. tablet Daily Max: 15 mg hydrOXYzine (ATARAX) 25 Take 1-2 tabs at 09/14/2018 05/22/2019 mg tablet bedtime prn anxiety documented as of this encounter Care Teams Landscape Gardener Relationship Specialty Start Date End Date Mere Gonzales MD PCP - General 10/05/17 07/30/20 [address] [place] [phone] documented as of this encounter
--- OUTSIDE RECORDS SUMMARY | 2021-11-28 01:52 | XMS_ITS | Encounter Summary ---
:1965 Author Organization [facility] Address [address] [place] [address] Care Team Providers Name Role Phone Mere Gonzales MD Primary Care Provider Reason for Referral Consult (Routine) - Closed Specialty Diagnoses / Procedures Referred By Contact Refer red To Contact Breast Clinic / Diagnoses At risk for breast cancer Family history of breast cancer Mere Gonzales, Mp2 [facility] Breast Center MD [address] [facility] [address] [place] [address] [place], [place] Phone: [phone] Referral ID Status Reason Start Date Expiration Date Visits V isits Requested Authorized [id number] Closed Specialty 07/04/2019 1 1 Services Required Question Answer High Risk Breast Clinic Criteria: A first degree relat carmelina with a known genetic predisposition, 2 or more fi rst degree relatives with breast cancer or ovaria n cancer Reason for Visit Reason Comments Follow-up Encounter Details Date Type Department Care Team Description 07/04/[address] [facility] Mere Gonzales Pain in both upper extremities (Primary Dx); Adult Primary Care - MD Barbara Chronic pain syndrome; [place] [address] At risk for breast cancer[facility] [place] [address] [place] [phone] Social History Tobacco Use Types Packs/Day Years [...] documented as of this encounter Progress Notes Mere Gonzales MD - 07/04/2019 0945 EDT Heike Salguero, 54 y.o. female PRIMARY CARE PROVIDER: Mere Gonzales CHIEF COMPLAINT: Chief Complaint Patient presents with ??? Follow-up HISTORY OF PRESENT ILLNESS: Heike Salguero is a 54 y.o. female here for follow-up via telemedicine visit due to the coronavirus pandemic. We scheduled a video visit but pt preferred phone so it was changed. She continues to have significant pain in the bilateral UE and it's been flaring up recently. She likes taking gabapentin at night but not during the day due to side effects. We discussed the recent mammogram. I offered seeing the breast care center due to her family hx. Past medical, surgical, social and family history have been reviewed. Problem list reviewed. 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 She drinks 1 glass of wine /week. Nonsmoker. REVIEW OF SYSTEMS: A ten point ROS was performed and was negative except for pertinent positives in the HPI MEDICATION REVIEW: Medications reviewed & updated. ALLERGIES: Allergies as of 07/04/2019 ??? (No Known Allergies) ASSESSMENT / PLAN : 54 y.o. female here for follow-up. 1. Severe upper extremity pain - followed by ortho. She is going to get an injection. Has [facility] with [facility] spine MRIs visible in care everywhere. - Continue gabapentin (unable to tolerate more than nightly), discussed further options of venlafaxine or lyrica, maybe duloxetine.- likely try adding venlafaxine or duloxetine first - Pt has had a FULL rheumatologic workup that has been negative. ??- Discussed comprehensive pain clinic but she's not interested at this time 2. Family hx of cancer - h/o dense breasts. breast care center referral (hx of mom with DCIS, breastcancer and mastectomy. MGM - breast cancer, MGF - liver or bladder cancer. Dad - lung cancer) Not discussed today, copied for future reference: ADD - continue adderall. She knows q6mo visits are necessary ?? 3. Factor V leiden - followed by heme, on daily ASA. Discussed wearing compression stockings on upcoming flight ?? 3. Memory loss - MOCA was . Provided reassurance but she'd like to pursue memory testing. I have ordered TSH, syphilis and B12 also. ?? 4. Depression/Anxiety - declines therapy at this time but she may be open to it in the future. ?? 5. Raynauds - symptoms are much improved with norvasc. ?? 7. Frequent UTIs/Incontinence with recent kidney stone - followed by the continence center and urology. - continue oxybutynin, gabapentin for pain ?? Health Maintenance: Pap smear - UTD Jan 2015 Mammogram - UTD July 2018 Colonoscopy - UTD Nov 2017, due 10 yrs Tdap - UTD Nov 2017 Shingrix - discuss when restocked Basic labs/lipids - UTD Oct 2017 This visit was conducted by telephone. I spent a total of 32 minutes with Heike Salguero as described in the progress note. Patient has given verbal consent to a telephone visit today. Return in about 3 months (around 10/04/2019) for No labs needed prior to next visit. documented in this encounter Plan of Treatment Scheduled Referrals Name Type Priority Associated Diagnoses Order S chedule AMB CONS/FOLLOW Outpatient Referral Routine At risk for breast Expected: UP TO HIGH RISK cancer 07/04/2019 BREAST CLINIC Family history of (Approxim ate) breast cancer documented as of this encounter Visit Diagnoses Diagnosis Pain in both upper extremities - Primary Chronic pain syndrome At risk for breast cancer Family history of breast cancer Family history of malignant neoplasm of breast documented in this encounter Care Teams Athletic Agent Relationship Specialty Start Date End Date Mere Gonzales MD PCP - General 10/05/17 07/30/20 [address] [place] [address] documented as of this encounter
--- OUTSIDE RECORDS SUMMARY | 2021-11-28 01:52 | XMS_ITS | Encounter Summary ---
:1965 Author Organization [facility] Address [address] [place] [address] Care Team Providers Name Role Phone Mere Gonzales MD Primary Care Provider Reason for Visit Reason Onset Date Comments Appointment Related 08/29/2018 Encounter Details Date Type Department Care Team Description 08/29/2018 Telephone [facility] Therapy, Physical Appo intment Related Rehabilitation Therapy - Medical Office [address] [phone] Social History Tobacco Use Types Packs/Day Years [...] this encounter Miscellaneous Notes Telephone Encounter - Jovana Torres - 08/29/2018 0943 EDT [facility] - MEDICAL OFFICE BUILDING [address] [place] [address] Telephone Intake Information for Scheduling NEW Patients for Therapy Script/referral: In EPIC Referral date: 08/26/2018 Referring Provider: Mere Gonzales Diagnosis: Low back pain, patient refused to do Ric questions Ink Blender needed? No Primary Insurance: MVP Secondary Insurance: PAP Notes: The patient declined to do the Ric questions during intake. Early AM or Mondays work best. Jovana Torres 08/29/2018 documented in this encounter Plan of Treatment Not on filedocumented as of this encounter Visit Diagnoses Not on filedocumented in this encounter Care Teams Assistant Scientist Relationship Specialty Start Date End Date Mere Gonzales MD PCP - General 10/05/17 07/30/20 [address] [place] [address] documented as of this encounter
--- OUTSIDE RECORDS SUMMARY | 2021-11-28 01:52 | XMS_ITS | Encounter Summary ---
:1965 Author Organization [facility] Address [address] [place] [address] Care Team Providers Name Role Phone Mere Gonzales MD Primary Care Provider Reason for Referral Referral (Routine/Next Available) - Specialty Report Received Specialty Diagnoses / Procedures Referred By Contact Refer red To Contact Diagnoses Bilateral carpal tunnel syndrome Abbe Johnson PA-C Procedures EMG/NERVE CONDUCTION STUDY [address] [facility] [place] [address] Referral ID Status Reason Start Date Expiration Date Visits V isits Requested Authorized [id number] Specialty 10/31/2018 1 1 Report Received eferral (3 - 10 Business Days) - Specialty Report Received Specialty Diagnoses / Procedures Referred By Contact Refer red To Contact Pain Medicine Diagnoses Neck pain Cervical radiculopathy Abbe Johnson PA-C [facility] [address] [facility] 62 [facility] [place] [address] Phone: [phone] Referral ID Status Reason Start Expiration Visits Visits Date Date Requested Authorized [id number] Specialty Specialty 10/31/2018 1 1 Report Services Received Required Question Answer Reason for Request: cervical epidural C6-7 Has the patient had 6 weeks of conservative treatment such as Yes physicial therapy or NSAIDS? Associated Notes: chart Reason for Visit Reason Comments Neck Pain bilateral upper extremity nu mbness Consult (3 - 10 Business Days) - Specialty Report Received Specialty Diagnoses / Procedures Referred By Contact Refer red To Contact Orthopedic Surgery Diagnoses Chronic bilateral back pain, unspecified back location Mere Gonzales [facility] MD [place] [address] [place] [address] [address] [place] [address] Fax: Referral ID Status Reason Start Expiration Visits Visits Date Date Requested Authorized [id number] Specialty Specialty 08/26/2018 1 1 Report Services Received Required Encounter Details Date Type Department Care Team Description 10/31/[address] [facility] Abbe Johnson Neck p ainicole (Primary Dx); [facility] [place] Cervical radiculopathy; [address] Bilateral carpal tunnel syndrome [address] [facility] [place] [address] [phone] [place] [phone] (Wo rk) Social History Tobacco Use Types [...] documented as of this encounter Progress Notes Abbe Johnson PA - 10/31/2018 1445 EDT Gabrielshe Rickie Salguero is being seen as a consultation from Dr. Gonzales. Chief Complaint Patient presents with ??? Neck Pain bilateral upper extremity numbness The primary encounter diagnosis was Neck pain. Diagnoses of Cervical radiculopathy and Bilateral carpal tunnel syndrome were also pertinent to this visit. HPI patient presents with multiple complaints and on this visit would like to focus on her neck painand upper extremity symptoms. She notes a 3-year history of neck discomfort came on gradually without clear inciting event that is constant vascular intensity with radiation to bilateral upper extremities through the deltoid humerus dorsum of the forearm and into all fingers particularly fingers 3-5 bilaterally. Upper extremity symptoms are constant to some degree. Her symptoms are exacerbated by lifting grasping turning her head extending her arms where she finds oral steroids helpful in short-termphysical therapy helpful. She has not seen a chiropractor received injection therapy and would like to discuss treatment options. Patient has follow-up with rheumatology both at [facility] withDr. Carmona and at [facility]. Both consults felt that her symptoms were less likely related to inflammatory process and more likely related to osteoarthritis. HPI Patient Active Problem List Diagnosis ??? ADHD, predominantly inattentive type ??? Chronic abdominal pain ??? Constipation ??? PMR (polymyalgia rheumatica) ([facility]) ??? Raynaud phenomenon ??? Frequent UTI ??? Moderate episode of recurrent major depressive disorder ([facility]) ??? Overactive bladder ??? Hypertension ??? Primary hypercoagulable state ([facility]) Past Medical History: Diagnosis Date ??? Chronic abdominal pain ??? Factor V Leiden ([facility]) 10/29/2017 homozygote. FH VTE ??? Frequent UTI 10/29/2017 ??? Hypertension ??? PMR (polymyalgia rheumatica) ([facility]) ??? Post herpetic neuralgia ??? Primary hypercoagulable state ([facility]) 02/03/2018 -factor V Leiden homozygosity and elevated D-dimer (285) with FH thrombosis and FVL in her mother. Full thrombosis panel other than prothrombin mutation (no coverage) negative. -no prior hx VTE ??? Raynaud phenomenon 10/29/2017 Past Surgical History: Procedure Laterality Date ??? INTERSTIM to low back for bladder incontinence; coming out next month ??? KIDNEY STONE SURGERY 10/2017 Social History Tobacco Use ??? Smoking status: Never Smoker ??? Smokeless tobacco: Never Used Substance Use Topics ??? Alcohol use: Yes Comment: 1 wine with dinner Family History Problem Relation Age of Onset ??? Lung Cancer Father ??? *Other(comment) Father raynauds ??? Arthritis-Osteo Father ??? Breast Cancer Maternal Grandmother ??? Asthma Maternal Grandmother ??? Dementia Paternal Grandfather ??? High Blood Pressure Paternal Grandfather ??? Clotting Disorder Mother Factor V leiden and thrombosis ??? Arthritis-Osteo Mother ??? Ulcerative Colitis Brother ??? Cancer Maternal Grandfather ??? Rheumatologic Disease Paternal Grandmother ??? Osteoporosis Paternal Grandmother ??? Clotting Disorder Daughter Factor V Leiden ??? Clotting Disorder Daughter Factor V Leiden Current Outpatient Medications Medication Sig Dispense Refill ??? amLODIPine (NORVASC) 5 mg tablet TAKE ONE TABLET BY MOUTH EVERY DAY 90 Tab 1 ??? aspirin (ASPIRIN LOW DOSE) 81 mg EC tablet Take 81 mg by mouth daily. ??? cyanocobalamin (VITAMIN B-12) 500 mcg tablet Take 500 mcg by mouth daily. ??? dextroamphetamine-amphetamine (ADDERALL) 15 mg tablet Take 1 Tab by mouth daily for 28 days. Daily Max: 15 mg 28 Tab 0 ??? ergocalciferol, vitamin D2, (VITAMIN D ORAL) Take by mouth. ??? gabapentin (NEURONTIN) 300 mg capsule Take 1 capsule by mouth every morning AND 2 capsules at bedtime. 270 capsule 3 ??? hydrOXYzine (ATARAX) 25 mg tablet Take 1-2 tabs at bedtime prn anxiety 60 Tab 3 ??? magnesium oxide (MAG-OX) 400 mg (241.3 mg magnesium) tablet Take 400 mg by mouth daily. ??? oxybutynin (DITROPAN-XL) 5 mg CR tablet Take 1 Tab by mouth daily. 90 Tab 3 ??? traZODone (DESYREL) 50 mg tablet Take 1 Tab by mouth at bedtime. 30 Tab 2 No current facility-administered medications for this visit. No Known Allergies Review of Systems Constitutional: Positive for activity change. Eyes: Negative for visual disturbance. Respiratory: Negative for wheezing. Cardiovascular: Negative for palpitations. Gastrointestinal: Negative for constipation. Genitourinary: Negative for difficulty urinating. Musculoskeletal: Positive for back pain, neck pain and neck stiffness. Skin: Negative for rash. Neurological: Positive for weakness and numbness. Psychiatric/Behavioral: The patient is not nervous/anxious. Physical Exam Constitutional: She is oriented to person, place, and time. She appears well- developed and well-nourished. No distress. Eyes: EOM are normal. Cardiovascular: Normal rate. Pulmonary/Chest: Effort normal. Neurological: She is alert and oriented to person, place, and time. Skin: Skin is warm and dry. Psychiatric: She has a normal mood and affect. Back Exam Comments: No lesions rashes or hair savage, Palp tenderness decreased ROM spurlings maneuver is negative bilaterally upper ext strength 5/5 soft touch diminished right humerus forearm and whole hand Reflexes 1 radial pulse 2 truong's sign neg tinel sign moderately pos bilaterally at the wrist, ulnar co mpression neg bilaterally Neurologic Exam Mental Status Oriented to person, place, and time. Cranial Nerves CN III, IV, Extraocular motions are normal. The prior workup of the patient includes: Cervical MRI dated August 21, 2018 reveals disc degenerationat C4-5 C5-6 and C6-7 with moderate to severe foraminal narrowing at C5-6 and C6-7 as a result of a disc osteophyte complex, on the left she has again moderate to severe foraminal narrowing at C5-6 and6 7 as result of a disc osteophyte complex and also moderate narrowing at C2-3 Assessment Neck pain musculoskeletal with a component of facet arthropathy. Upper extremity symptoms a result of a double crush syndrome patient has at least moderate carpal tunnel syndrome and bilateral C6-C7 radiculopathies. Today we reviewed multiple options including expectant management continue home exercise program cervical injections and EMG nerve conduction study and upper extremity consult. Other Orders Placed This Visit Procedures ??? EMG/Nerve Conduction Study - External Referral ??? Amb Pain Procedure Plan: Cervical epidural Follow me 2 weeks post EMG Based on results we will move forward with an upper extremity consult to consider carpal injections versus carpal tunnel release Activity as tolerated from a spine perspective Dr. clark was available for consultation was not consulted Sandy Miller - 10/31/2018 1445 EDT Patient given written and verbal patient education on injection. documented in this encounter Plan of Treatment Scheduled Orders Name Type Priority Associated Diagnoses Order S chedule EMG/NERVE CONDUCTION Procedures Routine Bilateral carpal Ord ered: 10/31/2018 STUDY tunnel syndrome Scheduled Referrals Name Type Priority Associated Diagnoses Order S chedule AMB PAIN PROCEDURE Outpatient Referral Routine Neck pain Ordered: Cervical radiculopathy 10/31 documented as of this encounter Visit Diagnoses Diagnosis Neck pain - Primary Cervicalgia Cervical radiculopathy Brachial neuritis or radiculitis nos Bilateral carpal tunnel syndrome Carpal tunnel syndrome documented in this encounter Care Teams Senior Java Ui Developer Relationship Specialty Start Date End Date Mere Gonzales MD PCP - General 10/05/17 07/30/[address] [place] [phone] documented as of this encounter
--- OUTSIDE RECORDS SUMMARY | 2021-11-28 01:52 | XMS_ITS | Encounter Summary ---
:1965 Author Organization [facility] Address [address] [place] [address] Care Team Providers Name Role Phone Mere Gonzales MD Primary Care Provider Encounter Details Date Type Department Care Team Description 06/22/2018 Phlebotomy Only [facility] Dispute Resolution Analyst, PMR ( [facility] Outpatient rheumatica) [address] [facility] ([facility]) ([place], [place]) [id number] [phone] Social History Tobacco Use Types Packs/Day Years [...] Name Priority Date/Time Associated Diagnosis Comme nts SED RATE Routine 06/22/2018 9:32 EDT PMR (polymyalgia Resu lts for this rheumatica) procedure are i n ([facility]) the results section. C REACTIVE PROTEIN Routine 06/22/2018 9:32 EDT PMR (polymyalgi a Results for this rheumatica) procedure are i n ([facility]) the results section. documented in this encounter Results C REACTIVE PROTEIN (06/22/2018 9:32 EDT) Pathologist Sig nature C Reactive Protein <7.0 <10.0 mg/L [facility] Specimen Blood specimen (specimen) - Blood Performing Organization Address City/State/ZIP Code Phon e Number [facility] [address] [place] [address] SERVICES SED. RATE:WESTERGREN (06/22/2018 9:32 EDT) Pathologist Sig nature Sed. Rate Westergren 1 0 - 30 mm/hr [facility] Specimen Blood specimen (specimen) - Blood Performing Organization Address City/State/ZIP [facility] Phon e Number [facility] [address] [place] [address] SERVICES documented in this encounter Visit Diagnoses Diagnosis PMR (polymyalgia rheumatica) ([facility]) ( [facility]) - Primary Polymyalgia rheumatica documented in this encounter Care Teams Apprentice Stylist Relationship Specialty Start Date End Date Mere Gonzales MD PCP - General 10/05/17 07/30/20 [address] [place] [phone] documented as of this encounter
--- OUTSIDE RECORDS SUMMARY | 2021-11-28 01:52 | XMS_ITS | Encounter Summary ---
:1965 Author Organization [facility] Address [address] [place] [address] Care Team Providers Name Role Phone Mere Gonzales MD Primary Care Provider Encounter Details Date Type Department Care Team Description 06/22/2018 Hospital Encounter [facility] - Garry Gonzales, [facility] [address] [facility] 2 [place], [place] [address] [place] [phone] (Wo rk) Social History Tobacco Use Types [...] as of this encounter Discharge Diagnoses Diagnosis M35.3 Polymyalgia rheumatica-M35.3[ICD-1 0-CM] documented in this encounter Medications at Time [...] Take 1 tablet by 28 tablet 0 08/10/2018 ine (ADDERALL) 15 mg mouth daily for tablet 28 days. Daily Max: 15 mg dextroamphetamine-amphetam Take 1 tablet by 28 tablet 0 09/14/2018 ine (ADDERALL) 15 mg mouth daily for tablet 28 days. Daily Max: 15 mg dextroamphetamine-amphetam Take 1 tablet by 30 tablet 0 07/16/2018 ine (ADDERALL) 15 mg mouth daily for tablet 30 days. Daily Max: 15 mg ergocalciferol, vitamin Take by mouth. 0 08/05/2020 D2, (VITAMIN D ORAL) gabapentin (NEURONTIN) 300 Take 1 capsule by 270 capsule 3 0 06/17/2018 05/09/2019 mg capsule mouth every morning AND 2 capsules at bedtime. hydrOXYzine (ATARAX) 25 mg Take 1 Tab by 90 Tab 3 201707/21/2018 tablet mouth every evening. magnesium oxide (MAG-OX) Take 400 mg by [...] on filedocumented in this encounter Care Teams Ramp Service Agent Relationship Specialty Start Date End Date Mere Gonzales MD PCP - General 10/05/17 07/30/20 [address] [place] [phone] documented as of this encounter
--- OUTSIDE RECORDS SUMMARY | 2021-11-28 01:52 | XMS_ITS | Encounter Summary ---
:1965 Author Organization [facility] Address [address] [place] [address] Care Team Providers Name Role Phone Mere Gonzales MD Primary Care Provider Reason for Visit Reason Onset Date Comments Appointment Related 08/22/2018 Encounter Details Date Type Department Care Team Description 08/22/2018 Telephone [facility] Adult Fidelina Choi RN Appointment Related Primary Care - [address] [phone] Social History Tobacco Use Types Packs/Day Years [...] encounter Miscellaneous Notes Telephone Encounter - Fidelina Choi RN - 08/22/2018 1039 EDT Updated patient that new available appointment 08/26 at 11:15 which patient states she can make. Appointment booked, still on cancellation list for earlier. documented in this encounter Plan of Treatment Not on filedocumented as of this encounter Visit Diagnoses Not on filedocumented in this encounter Care Teams Service Engineer Relationship Specialty Start Date End Date Mere Gonzales MD PCP - General 10/05/17 07/30/20 [address] [place] [phone] documented as of this encounter
--- OUTSIDE RECORDS SUMMARY | 2021-11-28 01:52 | XMS_ITS | Encounter Summary ---
:1965 Author Organization [facility] Address [address] [place] [address] Care Team Providers Name Role Phone Mere Gonzales MD Primary Care Provider Encounter Details Date Type Department Care Team Description 11/22/2018 Hospital Encounter [facility] - Mere Lemons MD [address] [place] [phone] Medical Office Build Dedra Saul, PT [address] [place] [address] [phone] Social History Tobacco Use Types Packs/Day Years [...] Tab 1 02/20/2019 tablet MOUTH EVERY DAY aspirin (ASPIRIN LOW Take 81 mg by 0 0 09/16/2020 DOSE) 81 mg EC tablet mouth daily. cyanocobalamin (VITAMIN Take 500 mcg by 0 08/29/2021 B-12) 500 mcg tablet mouth daily. dextroamphetamine-ampheta Take 1 Tab by 28 Tab 0 019 12/29/2018 mine (ADDERALL) 15 mg mouth daily for [...] Code Departure Means Destination Home or Self Assisted documented in this encounter Plan of Treatment Not on filedocumented as of this encounter Visit Diagnoses Not on filedocumented in this encounter Care Teams Merchandise Planning Manager Relationship Specialty Start Date End Date Mere Gonzales MD PCP - General 10/05/17 07/30/20 [address] [place] [phone] documented as of this encounter
--- OUTSIDE RECORDS SUMMARY | 2021-11-28 01:52 | XMS_ITS | Encounter Summary ---
:1965 Author Organization [facility] Address [address] [place] [address] Care Team Providers Name Role Phone Mere Gonzales MD Primary Care Provider Reason for Referral Consult (Routine) - Specialty Report Received Specialty Diagnoses / Procedures Referred By Contact Refer red To Contact Diagnoses Nephrolithiasis Mere Gonzales MD [address] [place] [address] Referral ID Status Reason Start Expiration Visits Visits Date Date Requested Authorized [id number] Specialty Specialty 06/24/2018 1 1 Report Services Received Required Question Answer What areas would you like the CHT to focus Nutrition H elp on? What goals would you like the patient to pt wants todi scuss healthy eating and how meet? to manage that in the settin g of kidney stones Comments As we discussed in your visit today, lucho eone will be contacting you from the [facility] Team to schedule an jose ointment with you. If you do not hear from the [facility] within a week please call the [facility] Team at [phone]. Encounter Details Date Type Department Care Team Description 06/24/2018 Orders Only [facility] Mere Gonzales Nephr olithiasis (Primary Adult Primary Care - MD Barbara Dx) [place] [address] [address] [place] [phone] Social History Tobacco Use Types Packs/Day Years [...] as of this encounter Plan of Treatment Scheduled Referrals Name Type Priority Associated Diagnoses Order S chedule AMB CONS/FOLLOW UP Outpatient Referral Routine Nephrolithiasis Ordered: [facility] 06/24/2018 TEAM documented as of this encounter Visit Diagnoses Diagnosis Nephrolithiasis - Primary Calculus of kidney documented in this encounter Care Teams Vice President Fixed Income Relationship Specialty Start Date End Date Mere Gonzales MD PCP - General 10/05/17 07/30/20 [address] [place] [phone] documented as of this encounter
--- OUTSIDE RECORDS SUMMARY | 2021-11-28 01:52 | XMS_ITS | Encounter Summary ---
:1965 Author Organization [facility] Address [address] [place] [address] Care Team Providers Name Role Phone Mere Gonzales MD Primary Care Provider Encounter Details Date Type Department Care Team Description 09/06/2018 Results Only Imaging [facility]- Unknown, PRISM Provider, Social History Tobacco Use Types Packs/Day Years [...] as of this encounter Plan of Treatment Pending Results Name Type Priority Associated Diagnoses Date/Ti me OUTSIDE IMAGES - MR NEURO Imaging 8:07 EDT documented as of this encounter Visit Diagnoses Not on filedocumented in this encounter Care Teams Mold Shifter Relationship Specialty Start Date End Date Mere Gonzales MD PCP - General 10/05/17 07/30/20 [address] [place] [phone] documented as of this encounter
--- OUTSIDE RECORDS SUMMARY | 2021-11-28 01:52 | XMS_ITS | Encounter Summary ---
:1965 Author Organization [facility] Address [address] [place] [address] Care Team Providers Name Role Phone Mere Gonzales MD Primary Care Provider Encounter Details Date Type Department Care Team Description 09/21/2018 Hospital Encounter [facility] - Garry Gonzales, Medical Office [facility] cheo HERN[place]NDEZ [phone] [address] [place] [phone] (Wo rk) Social History Tobacco Use [...] on filedocumented in this encounter Care Teams Pocket Machine Operator Relationship Specialty Start Date End Date Mere Gonzales MD PCP - General 10/05/17 07/30/20 [address] [place] [phone] documented as of this encounter
--- OUTSIDE RECORDS SUMMARY | 2021-11-28 01:52 | XMS_ITS | Encounter Summary ---
:1965 Author Organization [facility] Address [address] [place] [address] Care Team Providers Name Role Phone Mere Gonzales MD Primary Care Provider Reason for Visit Reason Onset Date Comments Medications Refill 07/21/2018 Encounter Details Date Type Department Care Team Description 07/21/2018 Refill [facility] Adult Mere Gonzales, Medications Refill Primary Care - Tam HERNÁNDEZ [address] [place] [address] [place], [place] [phone] (Wo rk) Social History Tobacco Use [...] Date hydrOXYzine (ATARAX) 25 Take 1-2 tabs at 60 Tab 0 201809/14/2018 mg tablet bedtime prn anxiety documented in this encounter Miscellaneous Notes Telephone Encounter - Zenobia Villarreal - 07/21/2018 1109 EDT 30-day supply of hydroxyzine with new directions sent to pharmacy. elephone Encounter - Apple Blanco - 07/21/2018 1002 EDT Medication(s) Requested: 1) Hydroxyzine, 25 mg, pt says she takes 1-2 HS, the SIG on her med list says 1 HS. Per Yi at [facility], the pt last picked it up on 05.10.18. At one HS, she will not be due for a refill until 08.10.18. The pt says she takes it at night to help her calm down, she says some night she does not need it, she says on bad nights she needs two. She says there have been a lot of bad nights lately, has beentaking two. Because of that she is out early at one HS. She would like a new Rx for 1-2 HS instead of [address] Gonzales is out of the office this week, I xpld that I would see if the covering provider would be willing to Rx it at 1-2 HS. Preferred Pharmacy: [facility] Tam Is patient out of medication? Yes Last Visit Date with Ordering Provider: 06.20.18, A30 with Dr. Gonzales Next Non-Acute Visit Date Scheduled with Care Team: 19, F30 with Dr. Janet Blanco 07/21/2018 10:03 documented in this encounter Plan of Treatment Not on filedocumented as of this encounter Visit Diagnoses Not on filedocumented in this encounter Discontinued Medications Medication Sig Discontinue Reason Start Date End Date hydrOXYzine (ATARAX) 25 Take 1 Tab by mouth Reorder 11/26/2017 07/21/2018 mg tablet every evening. documented as of this encounter Care Teams Professor Of Exercise Science Relationship Specialty Start Date End Date Mere Gonzales MD PCP - General 10/05/17 07/30/20 [address] [place] [address] documented as of this encounter
--- OUTSIDE RECORDS SUMMARY | 2021-11-28 01:52 | XMS_ITS | Encounter Summary ---
:1965 Author Organization [facility] Address [address] [place] [address] Care Team Providers Name Role Phone Mere Gonzales MD Primary Care Provider Reason for Visit Reason Comments Polymyalgia Rheumatica Encounter Details Date Type Department Care Team Description 09/21/2018 Office Visit [facility] Mere Gonzales Chron ic bilateral back pain, unspecified back location (Primary Dx); Adult Primary Care - E, Mass of right lower extremity; Tam [address] Moderate episode of recurrent major depr essive disorder (HCC-CMS); [address] [place] [address], BMI 20.0-20.9, [place] [address] [place] [phone] Social History Tobacco Use Types Packs/Day [...] Sign Reading Time Taken Comments Blood Pressure 100/60 09/21/2018 1318 EDT Pulse 72 09/21/2018 1318 EDT Temperature 37 ??C (98.6 ??F) 09/21/2018 1318 EDT Respiratory Rate 14 09/21/2018 1318 EDT Oxygen Saturation - - Inhaled Oxygen Concentration - - Weight 52.6 kg (116 lb) 09/21/2018 1318 EDT Height 160 cm (5' 3) 09/21/2018 1318 EDT Body Mass Index 20.55 09/21/2018 1318 EDT documented in this encounter [...] Date traZODone (DESYREL) 50 mg Take 1 Tab by mouth 30 Tab 2 0 09/21/2018 01/16/2019 tablet at bedtime. documented in this encounter Progress Notes Mere Gonzales MD, MD - 09/21/2018 1315 EDT Heike Salguero, 53 y.o. female PRIMARY CARE PROVIDER: Mere Gonzales CHIEF COMPLAINT: Chief Complaint Patient presents with ??? Polymyalgia Rheumatica HISTORY OF PRESENT ILLNESS: Heike Salguero is a 53 y.o. female here for follow-up. She hasn't noticed much benefit to the gabapentin although it's hard to say. She does not have the sedating side effect. Has felt more depressed and disappointed recently about how challenging this has been to figure out what's going on with her health. She is looking forward to seeing neurology next month. Also recently she's had some sore throat/discomfort with swallowing. Was exposed to people with a throat infection as she heard they had been tested for strep, but not sure the results. No fever. Patient Active Problem List Diagnosis Date Noted ??? Primary hypercoagulable state ([facility]) 02/03/2018 -factor V Leiden homozygosity and elevated D-dimer (285) with FH thrombosis and FVL in her mother. Full thrombosis panel other than prothrombin mutation (no coverage) negative. -no prior hx VTE -Needs low dose anticoagulation to prevent thrombosis in risk settings in the future, such as surgery, trauma, hospital stay or immobility. We are always happy to help plan treatment in these instances. I advised the patient to inform us in advance of any elective surgery where this might be needed. ??? Hypertension ??? Overactive bladder 01/31/2018 ??? Moderate episode of recurrent major depressive disorder ([facility]) 11/26/2017 ??? Chronic abdominal pain 10/29/2017 ??? Constipation 10/29/2017 ??? PMR (polymyalgia rheumatica) ([facility]) 10/29/2017 ??? Raynaud phenomenon 10/29/2017 Responded well to amlopidine ??? Frequent UTI 10/29/2017 ??? 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 Chronic abdominal pain ??? Factor V Leiden ([facility]) 10/29/2017 homozygote. FH VTE ??? Frequent UTI 10/29/2017 ??? Hypertension ??? PMR (polymyalgia rheumatica) ([facility]) ??? Post herpetic neuralgia ??? Primary hypercoagulable state ([facility]) 02/03/2018 -factor V Leiden homozygosity and elevated D-dimer (285) with FH thrombosis and FVL in her mother. Full thrombosis panel other than prothrombin mutation (no coverage) negative. -no prior hx VTE ??? Raynaud phenomenon 10/29/2017 PAST SURGICAL HISTORY: has a past surgical history that includes Interstim and Kidney stone surgery (10/2017). PAST FAMILY HISTORY: family history includes *Other(comment) in her father; Arthritis-Osteo in her father and mother; Asthma in her maternal grandmother; Breast Cancer in her maternal grandmother; Cancer in her maternal grandfather; Clotting Disorder in her daughter, daughter, and mother; Dementia in her paternal grandfather; High Blood Pressure in her paternal grandfather; Lung Cancer in her father; Osteoporosis in her paternal grandmother; Rheumatologic Disease in her paternal grandmother; Ulcerative Colitis in her brother. PAST SOCIAL HISTORY: Social History Socioeconomic History ??? Marital status: Spouse name: None ??? Number of children: None ??? Years of education: None ??? Highest education level: None Occupational History ??? None Social Needs ??? Financial resource strain: None ??? Food insecurity: Worry: None Inability: None ??? Transportation needs: Medical: None Non-medical: None Tobacco Use ??? Smoking status: Never Smoker ??? Smokeless tobacco: Never Used Substance and Sexual Activity ??? Alcohol use: Yes Comment: 1 wine with dinner ??? Drug use: No ??? Sexual activity: Yes Partners: Male control/protection: Surgical Comment: vas Lifestyle ??? Physical activity: Days per week: None Minutes per session: None ??? Stress: None Relationships ??? Social connections: Talks on phone: None Gets together: None Attends tenriism service: None Active member of club or organization: None Attends meetings of clubs or organizations: None Relationship status: None ??? Intimate partner violence: Fear of current or ex partner: None Emotionally abused: None Physically abused: None Forced sexual activity: None Other Topics Concern ??? 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 She drinks 1 glass of wine /week. Nonsmoker. MEDICATION REVIEW: Medications reviewed & updated. ALLERGIES: Allergies as of 09/21/2018 ??? (No Known Allergies) REVIEW OF SYSTEMS: A ten point ROS was performed and was negative except for pertinent positives in the HPI PHYSICAL EXAM: Vitals: BP 100/60 (BP Cuff Location: Right arm, Patient Position: Sitting, BP Cuff Sizes: Adult, regular) Pulse 72 Temp 37 ??C (98.6 ??F) (Tympanic) Resp 14 Ht 160 cm (63) Wt 52.6 kg (116 lb) BMI 20.55 kg/m?? Gen - NAD HEENT - mild erythema posterior oropharynx without exudate ASSESSMENT / PLAN : 53 y.o. female here for follow-up. 1. Severe chronic back pain/radicular symptoms - HLA B27 positive. Not sure how that related to this, other autoimimune workup has been negative. RHeumatology at wasn't very helpful, may consider 2nd opinion here if nothing comes of the neurology and orthopedics visits in Oct. Starting PT which I hope will help, and will uptitrate gabapentin (in 1 week she will call me if no improvement and we'llincrease to 600mg BID) 2. R buttocks lesion - radiology recommended MR with/without contrast to evaluate. 3. Depression/Anxiety - declines therapy at this time but she may be open to it in the future. She is understandably feeling frustrated and unhappy with this process of trying to figure out the back issues Not discussed today, copied for future reference: 2. Raynauds - symptoms are much improved with norvasc. 3. ADD - continue adderall. She knows q3mo visits are necessary 4. Frequent UTIs/Incontinence with recent kidney stone - [facility]. - continue oxybutynin, gabapentin for pain 6. Factor V leiden - followed by [facility], on daily ASA Health Maintenance: Pap smear - UTD Jan 2015 Mammogram - 6 mo f/u due in July Colonoscopy - UTD Nov 2017, due 10 yrs Tdap - UTD Nov 2017 Shingrix - discuss when restocked Basic labs/lipids - UTD Oct 2017 documented in this encounter Plan of Treatment Not on filedocumented as of this encounter Visit Diagnoses Diagnosis Chronic bilateral back pain, unspecified back location - Primary Mass of right lower extremity Moderate episode of recurrent major depr essive disorder (HCC) BMI 20.0-20.9, adult documented in this encounter Discontinued Medications Medication Sig Discontinue Reason Start Date End Date meloxicam (MOBIC) 15 mg Take 1 Tab by Therapy completed 02/21/2018 09/21/2018 tabletIndications: Primary mouth daily. 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 omeprazole (PRILOSEC) 20 mg Take 1 Cap by Therapy completed 018 09/21/2018 capsuleIndications: History mouth daily. of gastroesophageal reflux (GERD) documented as of this encounter Care Teams Contracts Law Professor Relationship Specialty Start Date End Date Mere Gonzales MD PCP - General 10/05/17 07/30/20 [address] [place] [phone] documented as of this encounter
--- OUTSIDE RECORDS SUMMARY | 2021-11-28 01:52 | XMS_ITS | Encounter Summary ---
:1965 Author Organization [facility] Address [address] [place] [address] Care Team Providers Name Role Phone Mere Gonzales MD Primary Care Provider Encounter Details Date Type Department Care Team Description 05/19/2019 Documentation Visit [facility] Nancy Potts Rehabilitation Therapy - R, PT Medical Office [address] [address] [phone] Social History Tobacco Use Types Packs/Day Years [...] documented as of this encounter Progress Notes Dedra Potts, PT - 05/19/2019 0734 EDT REHABILITATION THERAPIES [facility] REHABILITATION THERAPY - MEDICAL OFFICE BUILDING [address] [place] [id number] Physical Therapy Discontinue/Discharge Note Date: 05/19/2019 Reason for Referral:Diagnosis: Chronic spine pain Date of Onset: 08/26/18(sought care date) Referring Provider: Mere Gonzales MD Precautions: PMR, HTN, primary hyperocaguable state Total number of visits 6 S: none. O: The patient has been seen in physical therapy since 09/21/18 for 6 therapy visits (5 visits initially from 09/21/18-10/25/18 per week for 6 weeks then an reassessment on 03/03/2019 up to 75 minutes per visit. The patient has not returned to therapy since 03/03/2019. Relevant objective findings were not taken since 09/21/18 due to: The patient failed to show for remaining visits A: I am unable to assess Heike's current status. At the time of her last visit, she was having a Minimal response to Physical Therapy interventions. Recommended course of treatment at that time was begin a consistent exercise program that she can progress successfully, implement Therapeutic Neuroscience Education. All goals discontinued unless otherwise noted below: Contract Technician Goals: In 12 weeks, Heike will... (goals reinstated for 12 weeks as of 03/03/2019) ?? Report an overall decrease of 2 points in pain scale numbers in best/worst ratings. ?? Improve her neck disability index score by 4-10 points indicating the minimum clinically important difference and placing her in the minimal disability category. Improve her Modified Low Back Pain Disability Questionnaire score by 6-10 points indicating the minimum clinically important difference. Be independent with her final home exercise program and progression per demonstration in clinic. Verbalize 3 symptom management strategies and implement at least 1. P: Discontinue Physical Therapy. The patient or Mere Gonzales's office is invited to contact us at any time, should any problems arise, or should her plans for rehabilitation change. Dedra Potts, PT 05/19/2019 7:34 documented in this encounter Plan of Treatment Not on filedocumented as of this encounter Visit Diagnoses Not on filedocumented in this encounter Care Teams Lining Machine Operator Relationship Specialty Start Date End Date Mere Gonzales MD PCP - General 10/05/17 07/30/20 [address] [place] [phone] documented as of this encounter
--- OUTSIDE RECORDS SUMMARY | 2021-11-28 01:52 | XMS_ITS | Encounter Summary ---
:1965 Author Organization [facility] Address [address] [place] [address] Care Team Providers Name Role Phone Mere Gonzales MD Primary Care Provider Reason for Visit Reason Onset Date Comments Medical Records 03/06/2019 results for NCV & EM G Encounter Details Date Type Department Care Team Description 03/06/2019 Telephone [facility] Mere Gonzales Medic al Records Adult Primary Care - MD Barbara (results for NCV & EMG) [address] [phone] Social History Tobacco Use Types Packs/Day [...] this encounter Miscellaneous Notes Telephone Encounter - JosueFidelina shannon - 03/06/2019 1641 EST Pt called to let you know that she reached out to Dr. Boykin's office ([facility])to see if they ever sent her results to our office. They said they faxed them to us on 12/05/18 & 12/06/18. I looked in pt's scans and found the results & confirmed with pt they were the correct ones. See Scans dated 12/16/18 EXTERNAL - Medical Records. documented in this encounter Plan of Treatment Not on filedocumented as of this encounter Visit Diagnoses Not on filedocumented in this encounter Care Teams Die Turner Relationship Specialty Start Date End Date Mere Gonzales MD PCP - General 10/05/17 07/30/20 [address] [place] [phone] documented as of this encounter
--- OUTSIDE RECORDS SUMMARY | 2021-11-28 01:52 | XMS_ITS | Encounter Summary ---
:1965 Author Organization [facility] Address [address] [place] [address] Care Team Providers Name Role Phone Mere Gonzales MD Primary Care Provider Reason for Visit Reason Onset Date Comments Medications Refill 02/07/2019 Encounter Details Date Type Department Care Team Description 02/07/2019 Refill [facility] Adult Mere Gonzales, Medications Refill Primary Care - Tam HERNÁNDEZ [address] [place] [address] [place], [place] [phone] (Wo rk) Social History Tobacco Use [...] 1 Tab by mouth 28 Tab 0 02/07/2019 02/20/2019 ine (ADDERALL) 15 mg daily for 28 days. tablet Daily Max: 15 mg documented in this encounter Miscellaneous Notes Telephone Encounter - Andrae Tanner - 02/07/2019 1153 EST Medication(s) Requested: Adderall Preferred Pharmacy: [facility] [place] Is patient out of medication? No Last Refill Date: 01/05/19 Last Visit Date with Ordering Provider: 11/18/18 Next Non-Acute Visit Date Scheduled with Care Team: Yes. 02/20/19 Andrae Tanner 02/07/2019 11:53 documented in this encounter Plan of Treatment Not on filedocumented as of this encounter Visit Diagnoses Not on filedocumented in this encounter Discontinued Medications Medication Sig Discontinue Reason Start Date End Date dextroamphetamine-ampheta Take 1 Tab by mouth Reorder 01/06/20 19 02/07/2019 mine (ADDERALL) 15 mg daily for 28 days. tablet Daily Max: 15 mg documented as of this encounter Care Teams Traffic Routing Engineer Relationship Specialty Start Date End Date Mere Gonzales MD PCP - General 10/05/17 07/30/20 [address] [place] [phone] documented as of this encounter
--- OUTSIDE RECORDS SUMMARY | 2021-11-28 01:52 | XMS_ITS | Encounter Summary ---
:1965 Author Organization [facility] Address [address] [place] [address] Care Team Providers Name Role Phone Mere Gonzales MD Primary Care Provider Reason for Visit Reason Onset Date Comments Appointment Related 08/23/2018 Encounter Details Date Type Department Care Team Description 08/23/2018 Telephone [facility] Adult Mere Gonzales, Appointment Related Primary Care - Tam HERNÁNDEZ [address] [place] [address] [place], [place] [phone] (Wo rk) Social History Tobacco Use [...] Telephone Encounter - Fidelina Choi RN - 08/23/2018 1338 EDT Read patient last paragraph of MRI from [facility] about possible fibroids and reviewed that Dr Gonzales may do a pelvic exam on Wednesday. documented in this encounter Plan of Treatment Not on filedocumented as of this encounter Visit Diagnoses Not on filedocumented in this encounter Care Teams Securities Compliance Examiner Relationship Specialty Start Date End Date Mere Gonzales MD PCP - General 10/05/17 07/30/20 [address] [place] [phone] documented as of this encounter
--- OUTSIDE RECORDS SUMMARY | 2021-11-28 01:52 | XMS_ITS | Encounter Summary ---
:1965 Author Organization [facility] Address [address] [place] [address] Care Team Providers Name Role Phone Mere Gonzales MD Primary Care Provider Reason for Visit Reason Onset Date Comments Medications Refill 01/16/2019 Encounter Details Date Type Department Care Team Description 01/16/2019 Refill [facility] Adult Mere Gonzales, Medications Refill Primary Care - Tam HERNÁNDEZ [address] [place] [address] [place], [place] [phone] (Wo rk) Social History Tobacco Use [...] 1 Tab by mouth 30 Tab 2 1 03/18/2018 05/09/2019 tablet at bedtime. documented in this encounter Miscellaneous Notes Telephone Encounter - Gilda Goodson - 01/16/2019 0856 EST Medication(s) Requested: traZODone (DESYREL) 50 mg tablet [[id number]] ?? Order Details Dose: 50 mg Route: oral Frequency: AT BEDTIME Dispense Quantity: 30 Tab Refills: 2 Fills remaining: -- ?? Sig: Take 1 Tab by mouth at bedtime. ?? Written Date: 09/21/18 Expiration Date: -- Start Date: 09/21/18 End Date: -- Preferred Pharmacy: [facility] Is patient out of medication? Yes Last Visit Date with Ordering Provider: 11/18/18 Next Non-Acute Visit Date Scheduled with Care Team: Yes.02/20/19 Gilda Goodson 01/16/2019 8:56 documented in this encounter Plan of Treatment Not on filedocumented as of this encounter Visit Diagnoses Not on filedocumented in this encounter Discontinued Medications Medication Sig Discontinue Reason Start Date End Date traZODone (DESYREL) 50 mg Take 1 Tab by mouth Reorder 09/22/1901/16/2019 tablet at bedtime. documented as of this encounter Care Teams Computer Installer Relationship Specialty Start Date End Date Mere Gonzales MD PCP - General 10/05/17 07/30/20 [address] [place] [phone] documented as of this encounter
--- OUTSIDE RECORDS SUMMARY | 2021-11-28 01:52 | XMS_ITS | Encounter Summary ---
:1965 Author Organization [facility] Address [address] [place] [address] Care Team Providers Name Role Phone Mere Gonzales MD Primary Care Provider Reason for Visit Reason Onset Date Comments Prior Auth, Other (i.e. radiology, etc.) 10/26/2018 MRI Encounter Details Date Type Department Care Team Description 10/26/2018 Telephone [facility] Mere Gonzales Prior Auth, Other (i.e. Adult Primary Care - E, radiology, etc.) (MRI) [address] [phone] Social History Tobacco Use Types Packs/Day [...] this encounter Miscellaneous Notes Telephone Encounter - Mere Gonzales MD, MD - 10/27/2018 0819 EDT We are scheduled for peer to peer tomorrow. elephone Encounter - Barbie Salas - 10/26/2018 1650 EDT Pt was calling to check on PA for MRI scheduled .07.10, MVP told her they are waiting on [id number]. Call to Radiology, they are waiting on [id number] approval. Will reach out to pt tomorrow. Spoke with Dr. Gonzales, [id number] being rescheduled, need to reschedule MRI. Pt aware, will call radiology in the morning to reschedule as they are closed now. documented in this encounter Plan of Treatment Not on filedocumented as of this encounter Visit Diagnoses Not on filedocumented in this encounter Care Teams Mandarin Chinese Teacher Relationship Specialty Start Date End Date Mere Gonzales MD PCP - General 10/05/17 07/30/20 [address] [place] [phone] documented as of this encounter
--- OUTSIDE RECORDS SUMMARY | 2021-11-28 01:52 | XMS_ITS | Encounter Summary ---
:1965 Author Organization [facility] Address [address] [place] [address] Care Team Providers Name Role Phone Mere Gonzales MD Primary Care Provider Reason for Visit Reason Comments Nutrition Counseling Consult (Routine) - Specialty Report Received Specialty Diagnoses / Procedures Referred By Contact Refer red To Contact Diagnoses Nephrolithiasis Mere Gonzales MD [address] [place] [phone] Referral ID Status Reason Start Expiration Visits Visits Date Date Requested Authorized [id number] Specialty Specialty 06/24/2018 1 1 Report Services Received Required Encounter Details Date Type Department Care Team Description 07/26/2018 [facility] Team Adult Primary Care - [address] [address] Social History Tobacco Use Types [...] documented as of this encounter Progress Notes Jenn Barron - 07/26/2018 0900 EDT Community Health Team Registered Dietitian Initial Encounter Date of visit: 07/26/2018 Nutrition education and counseling initial encounter with Heike Salguero for Nephrolithiasis, original referral from Mere Gonzales MD. SUBJECTIVE: Heike states: - she has been trying to figure out what to put into her mouth - she sees a Assistant Producer and has a family history of kidney stones - she is being tested by a senior buyer planner at [facility] for polymyalgia rheumatica - she has gained 7 lbs with menopause and would like to lose this weight - she is a carboholic, is on/off gluten free and grazes all day. - she is interested in an anti-inflammatory diet Nutrition: - Dietary Recall B: 1-2 slices sprouted grain toast w/almond butter or muffin or eggs or overnight oats and decaf black coffee s: almonds, popcorn, Kind bar, carrots and humus, katelyn chips L: often not able to eat w/work; may have lettuce w/chicken, berries and croutons or lentil/black helm soup or leftovers s: cheese and crackers w/glass red wine D: Hello Fresh lately- protein, veggie and starch or veggie pizza or occasionally pasta s: cashew milk ice cream or chocolate chips w/walnuts or glass of wine Fluids - Soda, no - Milk, ? - Energy drinks, no - Coffee/Tea, black coffee w/breakfast - Diet beverages, no - Water, lots - Juice, no Alcohol - 1-2 glasses of red wine Sleep: - didn't discuss Stress: - works 6 days/week; feels exhausted Gastrointestinal: - Not disucssed at today's visit Physical Activity: - sick on/off w/kidney stones since 2017 and had 2 surgeries - works 6 days/week - feels too exhausted to exercise OBJECTIVE: Nutrition Focused Physical Exam: Did not complete Anthropometrics: Wt Readings from Last 3 Encounters: 06/22/18 52.2 kg (115 lb) 06/20/18 51.7 kg (114 lb) 02/21/18 51.7 kg (114 lb) BP Readings from Last 3 Encounters: 06/20/18 110/70 02/21/18 104/70 02/07/18 125/81 Labs: Lab Results Component Value Date WBC 7.32 01/24/2018 RBC 4.33 01/24/2018 HGB 13.7 01/24/2018 HCT 39.5 01/24/2018 MCV 91 01/24/2018 MCH 31.6 01/24/2018 PLT 391 (H) 01/24/2018 NA 137 01/24/2018 K 3.9 01/24/2018 CL 100 01/24/2018 CO2 30 01/24/2018 BUN 20 01/24/2018 CREATININE 0.68 01/24/2018 GLUCOSEFINGE 80 03/07/2007 CALCIUM 9.8 01/24/2018 VITD 15.8 02/28/2014 Lab Results Component Value Date CHOL 201 10/29/2017 CHOL 200 02/21/2015 CHOL 210 02/28/2014 HDL 98 10/29/2017 HDL 81 02/21/2015 HDL 77 02/28/2014 LDLBASE 86 10/29/2017 LDLBASE 112 02/21/2015 LDLBASE 123 02/28/2014 TRIG 85 10/29/2017 TRIG 37 02/21/2015 TRIG 48 02/28/2014 CHOLHDL 2.1 10/29/2017 CHOLHDL 2.5 02/21/2015 CHOLHDL 2.7 02/28/2014 No results found for: HGBA1C Lab Results Component Value Date TSH 1.94 10/29/2017 Medications: Current Outpatient Medications: amLODIPine (NORVASC) 5 mg tablet aspirin (ASPIRIN LOW DOSE) 81 mg EC tablet cyanocobalamin (VITAMIN B-12) 500 mcg tablet [START ON 08/10/2018] dextroamphetamine-amphetamine (ADDERALL) 15 mg tablet dextroamphetamine-amphetamine (ADDERALL) 15 mg tablet ergocalciferol, vitamin D2, (VITAMIN D ORAL) gabapentin (NEURONTIN) 300 mg capsule hydrOXYzine (ATARAX) 25 mg tablet magnesium oxide (MAG-OX) 400 mg (241.3 mg magnesium) tablet meloxicam (MOBIC) 15 mg tablet omeprazole (PRILOSEC) 20 mg capsule oxybutynin (DITROPAN-XL) 5 mg CR tablet No current facility-administered medications for this visit. Drug-Nutrient Interactions - Not discussed at today's visit CHT intake: Not completed. Ran out of time No question data found. BEHAVIORAL HEALTH SCREENING: Comment(s): Recently completed at provider visit NUTRITION ASSESSMENT: Heike Salguero arrives at today's visit to initiate medical nutrition therapy for nephrolithiasis Nutrition Diagnosis: Disordered Eating Pattern Etiology: Imbalanced nutrition Signs & Symptoms: Elevated BP (see above) Intervention: MNT/Education: Engaged patient in conversation related to positive behavior change, self-management,goal setting and action planning using motivational interviewing and active listening. - Reviewed medical history, labs, and medications/supplements. - Reviewed dietary intake and physical activity. - Discussed health goals, including motivators and barriers. - Discussed anti-inflammatory diet - pt finds turmeric and garlic irritating to bladder - Discussed MNT for kidney stones - Discussed pt's weight gain and advised that pt is low end of normal weight currently; advised thatlosing weight without exercise will likely cause her to lose muscle mass which pt does not want. Sheis currently unable to exercise secondary to pain and fatigue. MNT/Educational Materials Provided: Healthy Balanced Snacks, Diet and Inflammation, Foods for Chronic Pain & Inflammation, Calcium Rich Foods Recommendation/Plan: For Heike CORTEZ recommends: - 3 balanced, consistent meals per day w/ whole grains, lean protein, 5 servings non-starchy vegetables and 4 servings fruit - <10% total energy from saturated fat - <6 teaspoons (<24g) added sugar daily - <2000 mg sodium daily - Increasing water consumption - 3-4 servings of calcium rich foods/day - Limiting foods high in sodium - Following plate guide for foods to eat for chronic pain and inflammation - Discussing w/provider type of kidney stone and if urine is high in calcium, uric acid or oxalate - Exercise as able - Advised not limiting calories to lose weight since she is not able to exercise and is not overweight. Monitoring & Evaluation: RD to monitor dietary intake and physical activity, kidney stone occurance, understanding of nutrition education and recommendations, nutrition related labs and vitals STAGE OF CHANGE: Preparation PATIENT IDENTIFIED GOALS: Reduction of kidney stone formation PLAN: Heike plans to first see Engineering Operator at [facility] and see if she has polymyalgia rheumatica.She plans to try to eat more foods for reduction of chronic pain and inflammation. She plans to increase her water intake and monitor her sodium intake. She plans to ask her provider about type of kidney stones and if urine is high in calcium, uric acid or oxalate. Patient's Primary Care Site: [facility] [address], [place] [address], [place] Total Time: 75 minutes (60 in-person, 15 charting) Referral: none Follow up: Date: Thursday, September 13, 2018 Time: 8 AM With: Jenn Benito Brake Lining Maker Location: Adult Primary Care [address], [place] [address], [place] Status: Active Thank you for your referral, Thank you for the referral, Latha Doherty RD, CD Clinical Dietitian [facility] Team documented in this encounter Plan of Treatment Not on filedocumented as of this encounter Visit Diagnoses Not on filedocumented in this encounter Care Teams Plant Health Care Technician Relationship Specialty Start Date End Date Mere Gonzales MD PCP - General 10/05/17 07/30/[address] [place] [phone] documented as of this encounter
--- OUTSIDE RECORDS SUMMARY | 2021-11-28 01:52 | XMS_ITS | Encounter Summary ---
:1965 Author Organization [facility] Address [address] [place] [address] Care Team Providers Name Role Phone Mere Gonzales MD Primary Care Provider Ajay Castaneda PA-C Primary Care Provider Reason for Visit Reason Onset Date Comments Medications Refill 06/13/2019 Encounter Details Date Type Department Care Team Description 06/13/2019 Refill [facility] Adult Mere Gonzales, Medications Refill Primary Care - Tam HERNÁNDEZ [address] [place] [id number] [place] [address] [phone] (Wo rk) Social History Tobacco Use [...] 1 Tab by mouth 28 Tab 0 06/14/2019 07/19/2019 ine (ADDERALL) 15 mg daily for 28 days. tablet Daily Max: 15 mg documented in this encounter Miscellaneous Notes Telephone Encounter - Dinorah Grande MD - 06/14/2019 1003 EDT From: Heike Salguero Sent: 06/13/2019 21:59 EDT Subject: Medication Renewal Request Heike Salguero would like a refill of the following medications: dextroamphetamine-amphetamine (ADDERALL) 15 mg tablet [Mere Gonzales MD] Preferred pharmacy: [facility] documented in this encounter Plan of Treatment Not on filedocumented as of this encounter Visit Diagnoses Not on filedocumented in this encounter Discontinued Medications Medication Sig Discontinue Reason Start Date End Date dextroamphetamine-ampheta Take 1 Tab by mouth Reorder 05/16/19 20 06/13/2019 mine (ADDERALL) 15 mg daily for 28 days. tablet Daily Max: 15 mg documented as of this encounter Care Teams Principal Android Developer Relationship Specialty Start Date End Date Meer Gonzales MD PCP - General 10/05/17 07/30/20 [address] [place] [phone] Ajay Castaneda PA-C PCP - General Internal Medicine - Primary 07/31/20 [address] [place] [phone] documented as of this encounter
--- OUTSIDE RECORDS SUMMARY | 2021-11-28 01:52 | XMS_ITS | Encounter Summary ---
:1965 Author Organization [facility] Address [address] [place] [address] Care Team Providers Name Role Phone Mere Gonzales MD Primary Care Provider Encounter Details Date Type Department Care Team Description 10/25/2018 - Hospital Encounter [facility] - Dedra Potts, PT [address] [place], [place] [phone] 10/26/2018 Medical Office Mere Gonzales MD [address] [place] [phone] [facility] [phone] Social History Tobacco Use Types Packs/Day Years [...] 1 Tab by 28 Tab 0 019 11/18/2018 mine (ADDERALL) 15 mg mouth daily for [...] on filedocumented in this encounter Care Teams Pit Shoveler Relationship Specialty Start Date End Date Mere Gonzales MD PCP - General 10/05/17 07/30/20 [address] [place] [phone] documented as of this encounter
--- OUTSIDE RECORDS SUMMARY | 2021-11-28 01:52 | XMS_ITS | Encounter Summary ---
:1965 Author Organization [facility] Address [address] [place] [address] Care Team Providers Name Role Phone Mere Gonzales MD Primary Care Provider Reason for Visit Reason Onset Date Comments Referral Request 11/28/2018 Encounter Details Date Type Department Care Team Description 11/28/2018 Telephone [facility] Spine Abbe Johnson PA-C Referral Request Program - [address] Spine [address] [phone] [place] [phone] (Wo rk) Social History Tobacco Use Types [...] this encounter Miscellaneous Notes Telephone Encounter - Sandy Hubbard - 11/28/2018 0905 EDT Kobilltyler/AMANDA denied Cervical GODWIN C6-7. CPT code: 60950 Reason: not medically necessary. Notes do not state that patient's pain level is at least a 6 on a 0-10 scale. Also must provide notes that say patient did PT, Chiro or Supervised HEP for at least 6 weeks in the last 6 months. I have reached out to patient to see if she would be okay starting physical therapy. She has an EMG scheduled with Ashutosh on 12/05 which I said she should still go to at this point. Patient has constant pain at all times. Her pain is around a 7 without pain management. With Gabapentin and over the counter NSAIDS its about a 6. Patient has been going to physical therapy at [facility] for weeks now, for entire spine pain. Theyhave been working on her neck as well with education for home exercises. Patient is going to schedule a few more visits and call me when she has completed them. documented in this encounter Plan of Treatment Not on filedocumented as of this encounter Visit Diagnoses Not on filedocumented in this encounter Care Teams Lithographic Press Operator Relationship Specialty Start Date End Date Mere Gonzales MD PCP - General 10/05/17 07/30/[address] [place] [phone] documented as of this encounter
--- OUTSIDE RECORDS SUMMARY | 2021-11-28 01:52 | XMS_ITS | Encounter Summary ---
:1965 Author Organization Address [address] [place] [id number] Care Team Providers Name Role Phone Mere Gonzales MD Primary Care Provider Reason for Visit Reason Onset Date Comments Appointment Related 09/19/2018 Encounter Details Date Type Department Care Team Description 09/19/2018 Telephone [facility] Therapy, Physical Appo intment Related Rehabilitation Therapy - Medical Office [address] [phone] Social History Tobacco Use Types Packs/Day Years [...] this encounter Miscellaneous Notes Telephone Encounter - Fauzia Pisano - 09/19/2018 0925 EDT REHABILITATION THERAPIES Medical Office Building, [address] [place] [address] , Option 1 A confirmation call was made to patient regarding 09/21/18 10 AM physical therapy appointment. A message was left with date/time/location of appointment and phone number to the Medical Office Building. documented in this encounter Plan of Treatment Not on filedocumented as of this encounter Visit Diagnoses Not on filedocumented in this encounter Care Teams Waist Presser Relationship Specialty Start Date End Date Mere Gonzales MD PCP - General 10/05/17 07/30/20 [address] [place] [phone] documented as of this encounter
--- OUTSIDE RECORDS SUMMARY | 2021-11-28 01:52 | XMS_ITS | Encounter Summary ---
:1965 Author Organization [facility] Address [address] [place] [address] Care Team Providers Name Role Phone Mere Gonzales MD Primary Care Provider Reason for Visit Reason Onset Date Comments Medications Refill 07/19/2019 Encounter Details Date Type Department Care Team Description 07/19/2019 Refill [facility] Adult Mere Gonzales, Medications Refill Primary Care - Tam HERNÁNDEZ [address] [place] [address] [place], [place] [phone] (Wo rk) Social History Tobacco Use [...] 1 Tab by mouth 28 Tab 0 07/21/2019 08/18/2019 ine (ADDERALL) 15 mg daily for 28 days. tablet Daily Max: 15 mg dextroamphetamine-amphetam Take 1 Tab by mouth 28 Tab 0 08/18/2019 04/03/2020 ine (ADDERALL) 15 mg daily for 28 days. tablet Daily Max: 15 mg dextroamphetamine-amphetam Take 1 Tab by mouth 28 Tab 0 09/15/2019 01/25/2020 ine (ADDERALL) 15 mg daily for 28 days. tablet Daily Max: 15 mg documented in this encounter Miscellaneous Notes Telephone Encounter - Fidelina Choi RN - 07/19/2019 1443 EDT See pended scripts for 3 months for PCP, for fill on Wednesday when scheduled to check messages again. Mail box was full, unable to reach patient. If patient calls back can send to POS for shorter fill. elephone Encounter - Gilda Goodson - 07/19/2019 1322 EDT Adderall 15mg tablet take 1 table by mouth daily #28 Patient request to send 3 prescriptions for 3 months [facility] - [place], [place] - [address] [facility] Confirmed Pharmacy? Yes Patient out of medication? Yes: Needs Refill Now Last Refill Date: 06/14/2019 Refills left? (explain exceptions requiring early refill) No Recent Visits Date Type Provider Dept 02/20/19 Office Visit Mere Gonzales MD [facility] 11/18/18 Office Visit Mree Gonzales MD [facility] 09/21/18 Office Visit Mere Gonzales MD [facility] 08/26/18 Office Visit Mere Gonzales MD [facility] 06/20/18 Office Visit Mere Gonzales MD [facility] 02/21/18 Office Visit Mere Gonzales MD [facility] 01/28/18 Office Visit Zenobia Hawkins PA-C [facility] Showing recent visits within past 540 days with a meds authorizing provider and meeting all other requirements Future Appointments No visits were found meeting these conditions. Showing future appointments within next 150 days with a meds authorizing provider and meeting all other requirements Future appointment: Other Was just seen televideo 07/04/2019 Gilda Goodson 07/19/2019 13:23 documented in this encounter Plan of Treatment Not on filedocumented as of this encounter Visit Diagnoses Not on filedocumented in this encounter Discontinued Medications Medication Sig Discontinue Reason Start Date End Date dextroamphetamine-ampheta Take 1 Tab by mouth Reorder 06/14/19 20 07/19/2019 mine (ADDERALL) 15 mg daily for 28 days. tablet Daily Max: 15 mg documented as of this encounter Care Teams Commercial Photographer Relationship Specialty Start Date End Date Mere Gonzales MD PCP - General 10/05/17 07/30/20 [address] [place] [phone] documented as of this encounter
--- OUTSIDE RECORDS SUMMARY | 2021-11-28 01:52 | XMS_ITS | Encounter Summary ---
:1965 Author Organization [facility] Address [address] [place] [address] Care Team Providers Name Role Phone Mere Gonzales MD Primary Care Provider Reason for Referral Radiology Services (Routine) - New Request Specialty Diagnoses / Procedures Referred By Contact Refer red To Contact Diagnoses Abnormal findings on diagnostic imaging of breast Breast calcifications Mere Gonzales MD Procedures MA BREAST DIAGNOSTIC ARETHA BILATERAL [address] [place] [address] Referral ID Status Reason Start Date Expiration Date Visits V isits Requested Authorized [id number] New Request 03/01/2019 1 1 Reason for Visit Radiology Services (Routine) - New Request Specialty Diagnoses / Procedures Referred By Contact Refer red To Contact Diagnoses Abnormal findings on diagnostic imaging of breast Breast calcifications Mere Gonzales MD Procedures MA BREAST DIAGNOSTIC ARETHA BILATERAL [address] [place] [address] Referral ID Status Reason Start Date Expiration Date Visits V isits Requested Authorized [id number] New Request 03/01/2019 1 1 Encounter Details Date Type Department Care Team Description 03/06/2019 Hospital Encounter [facility] Breast Abnormal findings on diagnostic imaging of breast; Imaging Mammography - Breast calcifications [facility] [address] [place] [address] Social History Tobacco Use Types Packs/Day Years [...] (NORVASC) 5 mg Take 1 Tab by 11 Tab 0 019 05/09/2019 tablet mouth daily. amLODIPine (NORVASC) 5 mg Take 1 Tab by 90 Tab 3 020 02/29/2020 tablet mouth daily. aspirin (ASPIRIN LOW Take 81 mg by 0 0 09/16/2020 DOSE) 81 mg EC tablet mouth daily. cyanocobalamin (VITAMIN Take 500 mcg by 0 08/29/2021 B-12) 500 mcg tablet mouth daily. dextroamphetamine-ampheta Take 1 Tab by 28 Tab 0 020 04/18/2019 mine (ADDERALL) 15 mg mouth daily for [...] 1 Tab by 30 Tab 2 019 05/09/2019 tablet mouth at bedtime. documented as of this encounter Discharge Disposition Disposition Code Departure Means Destination Home or Self Care documented in this encounter Plan of Treatment Not on filedocumented as of this encounter Procedures Procedure Name Priority Date/Time Associated Diagnosis Comme nts [place] BREAST Routine 03/06/2019 11:44 Abnormal findings on Res ults for this DIAGNOSTIC ARETHA EST diagnostic imaging of pro cedure are in BILATERAL breast the results Breast calcifications sectio n. documented in this encounter Results [place] BREAST DIAGNOSTIC ARETHA BILATERAL (03/06/2019 11:44 EST) Anatomical Region Laterality Modality Breast Bilateral Mammography Specimen Narrative [facility] - 03/06/2019 11:59 EST MA BREAST DIAGNOSTIC ARETHA BILATERAL ??03/06/2019 11:12 AM Signs and Symptoms/Comments: six month follow up bilateral breast aissatou cifications upper outer quadrants Comparison: Multiple prior mammograms including spot magnification views most recently in August 2016 and January 2018. Right breast findings: Digital diagnosti c views of the right breast were obtained with standard 3-D/synthesized 2-D technique, supplemented with spot compression magnification craniocaudal and true late ral views. The breast tissue is extremel y dense, limiting interpretation. There are multiple groups of calcifications. In the most anterior aspect of the right breast, this grouping is coarse and hetero geneous and fairly stable in appearance to prior magnification views from one year ago. Left breast findings: Digital diagnostic views of the left breast were obtained with standard 3-D/synthesized 2-D technique, supplemented with spot compression magnification views in craniocaudal and tr ue lateral projections. The breast tissu e is extremely dense, limiting interpretation. There are is a large regional grouping of amorphous calcifications located in the upper outer quadrant left breast. These demonstrate no detectable change since prior imaging of one year ago. Impression right breast: Likely benign, BI-RADS Category 3. Impression left breast: Likely benign, B I-RADS Category 3. Recommendation: 1. Bilateral spot magnification views to be obtained in one year at the time of annual bilateral mammography. 2. This patient has provided information on her clinical history questionnaire to suggest that she may benefit from breast cancer risk assessment. If this has not yet been performed, consideration shoul d be given to referral to the High Risk [facility] at the [facility] ([phone]) for risk management. If this patient's calculated lifetime risk of breast cancer is greater than 20%, then joanie whitaker to the [employer] guidel jennifer, annual MRI screening is recommended in addition to mammography. If lifetime risk of breast cancer is less than 20%, given extreme breast density, supplement chris screening with ultrasound would be r ecommended. This examination was interpreted with th e aid of computer-assisted detection (CAD) technology. Results and recommendations were discussed with the patient by the technologist at the time of the exam. Overall assessment: BI-RADS Category Ass essment 3: ??Probably benign. These results will be communicated to yo ur patient via a lay letter from Radiology. Performing Organization Address City/State/ZIP Code Phon e Number [facility] documented in this encounter Visit Diagnoses Diagnosis Abnormal findings on diagnostic imaging of breast Other (abnormal) findings on radiologica l examination of breast Breast calcifications Other (abnormal) findings on radiologica l examination of breast documented in this encounter Care Teams 7Th Grade Social Studies Teacher Relationship Specialty Start Date End Date Mere Gonzales MD PCP - General 10/05/17 07/30/20 [address] [place] [phone] documented as of this encounter
--- OUTSIDE RECORDS SUMMARY | 2021-11-28 01:52 | XMS_ITS | Encounter Summary ---
:1965 Author Organization [facility] Address [address] [place] [address] Care Team Providers Name Role Phone Mere Gonzales MD Primary Care Provider Reason for Visit Reason Onset Date Comments Referral Request 11/02/2018 Encounter Details Date Type Department Care Team Description 11/02/2018 Telephone [facility] Adult Mere Gonzales, Referral Request Primary Care - Tam HERNÁNDEZ [address] [place] [address] [place], [place] [phone] (Wo rk) Social History Tobacco Use [...] this encounter Miscellaneous Notes Telephone Encounter - Dmitry Martínez RN - 11/02/2018 1405 EDT Spoke with patient. Relayed message. Will cancel with for now. elephone Encounter - Mere Gonzales MD, MD - 11/02/2018 1251 EDT I would do both unless it's a problem financially or she doesn't have the time to drive there. Worstcase scenario is that she has 2 different opinions, but at the same time it's not urgent so if she wants to not go to and go to [facility] only that would be fine. I really think it's up to her. elephone Encounter - Paola Mc Nura - 11/02/2018 0916 EDT Reason for Call: Referral Request Summary/Symptoms: Pt has an appointment with Neurology at [facility] tomorrow at 8.30am for an EMG and other and she has been seeing ortho for pain management at [facility] and the orthopedic Doctor at [facility] hassaid that she should see neurology as they think that there are other things that she should be seenfor by Neuro and has managed to get her in by November within [facility]. Pt is wondering if she can wait until November for the local Neurorologist appointment instead of going all the way to [facility]. Pt calling to ask Dr Gonzales's thoughts on whether she should keep her appointmetn with [facility] tomorrow or not? I explained to patient that Dr Gonzales will not be in until this afternoon and that Dr Mg vital will be in clinic this afternoon and so I was not sure exactly when she would see the message, so advised alli to keep the appointment at [facility] just incase and I would talk with Provider when she gets to the office. Sending to Provider for review please Appointment Offered? No- n/a Paola Mc 11/02/2018 9:16 documented in this encounter Plan of Treatment Not on filedocumented as of this encounter Visit Diagnoses Not on filedocumented in this encounter Care Teams Probation Manager Relationship Specialty Start Date End Date Mere Gonzales MD PCP - General 10/05/17 07/30/20 [address] [place] [phone] documented as of this encounter
--- OUTSIDE RECORDS SUMMARY | 2021-11-28 01:52 | XMS_ITS | Encounter Summary ---
:1965 Author Organization [facility] Address [address] [place] [address] Care Team Providers Name Role Phone Mere Gonzales MD Primary Care Provider Reason for Referral DIRECTOR OF KIDS (3 - 10 Business Days) - New Request Specialty Diagnoses / Procedures Referred By Contact Refer red To Contact Diagnoses Free fluid in pelvis Mere Gonzales MD Procedures GAME FARM SUPERVISOR US PELVIS TRANSVAGINAL [address] [place] [address] Referral ID Status Reason Start Date Expiration Date Visits V isits Requested Authorized [id number] New Request 08/26/2018 1 1 PT/OT/ST (3 - 10 Business Days) - Specialty Report Received Specialty Diagnoses / Procedures Referred By Contact Refer red To Contact Rehab Therapies Diagnoses Chronic bilateral back pain, unspecified back location Mere Gonzales MD [facility] [address], [facility] [phone] Referral ID Status Reason Start Expiration Visits Visits Date Date Requested Authorized [id number] Specialty Specialty 08/26/2018 1 1 Report Services Received Required Question Answer Reason for Request: chronic back pain onsult (3 - 10 Business Days) - Specialty Report Received Specialty Diagnoses / Procedures Referred By Contact Refer red To Contact Orthopedic Surgery Diagnoses Chronic bilateral back pain, unspecified back location Mere Gonzales Tilley Spine MD [place] [address] [address] [facility], [place] [phone] Fax: Referral ID Status Reason Start Expiration Visits Visits Date Date Requested Authorized [id number] Specialty Specialty 08/26/2018 1 1 Report Services Received Required Question Answer Reason for Request: chronic back pain severe and worsening, being worked up for autoimmune issues also. HLA B27 positive. Reason for Visit Reason Comments Results Encounter Details Date Type Department Care Team Description 08/26/2018 Office Visit [facility] Mere Gonzales Free fluid in pelvis (Primary Dx); Adult Primary Care - MD Barbara Chronic bilateral back pain, unspecified back location; [place] [facility] BMI 20.0-20.9, adult; [address] [place] [address], Cervical cancer screening [address] [phone] Social History Tobacco Use Types Packs/Day [...] Sign Reading Time Taken Comments Blood Pressure 120/70 08/26/2018 1125 EDT Pulse 72 08/26/2018 1125 EDT Temperature 37.1 ??C (98.7 ??F) 08/26/2018 1125 EDT Respiratory Rate 14 08/26/2018 1125 EDT Oxygen Saturation - - Inhaled Oxygen Concentration - - Weight 52.6 kg (116 lb) 08/26/2018 1125 EDT Height - - Body Mass Index 20.55 06/22/2018 0849 EDT documented in this encounter Functional Status [...] as of this encounter Discharge Diagnoses Diagnosis R18.8 Other ascites-R18.8[ICD-10-CM] M54.9 Dorsalgia, unspecified-M54.9[ICD-1 0-CM] Z68.20 Body mass index (BMI) 20.0-20.9, adult-Z68.20[ICD-10-CM] Z12.4 Encounter for screening for malign ant neoplasm of cervix-Z12.4[ICD-10-CM] G89.29 Other chronic pain-G89.29[ICD-10- CM] documented in this encounter Discharge Disposition Disposition Code Departure Means Destination Auto Discharge documented in this encounter Progress Notes Mere Gonzales MD, MD - 08/26/2018 1115 EDT Heike Salguero, 53 y.o. female PRIMARY CARE PROVIDER: Mere Gonzales CHIEF COMPLAINT: Chief Complaint Patient presents with ??? Results HISTORY OF PRESENT ILLNESS: Heike Salguero is a 53 y.o. female here for acute visit. She is frustrated that she continues to have severe pain especially in the lower back. She saw rheum at [facility] and they have checked a full range of labs but thought it was most likely osteoarthritis vs an inflammatory arthritis. MRI SI joints showed gluteal tendinonsis b/l, bilateral hip OA and DJD without sacroillitis. MRI l spine showed disc bulging and facet arthopathy and mild stenosis. There were several unexpected findings - lesion in the R buttocks, large mass within the R wall of the uterus with multiple smaller masses, possibly a fibroid, collection of hyperintense foci at the cervix which could be small nabothian cyst, small amount of free fluid in the pelvis. She no longer menstruates and has no pelvic pain. She does notice intermittent protuberance almost like a hernia right under the RUQ ribcage. She has no vaginal bleeding or pain with intercourse. Labs were normal including CRP, anti CCP, ANCA, MPO, proteinase 3. Positive for HLAB27 MEDICATION REVIEW: Medications reviewed & updated. ALLERGIES: Allergies as of 08/26/2018 ??? (No Known Allergies) REVIEW OF SYSTEMS: A ten point ROS was performed and was negative except for pertinent positives in the HPI PHYSICAL EXAM: Vitals: BP 120/70 (BP Cuff Location: Right arm, Patient Position: Sitting, BP Cuff Sizes: Adult, regular) Pulse 72 Temp 37.1 ??C (98.7 ??F) (Tympanic) Resp 14 Wt 52.6 kg (116 lb) BMI 20.55 kg/m?? Gen - NAD Abd- no masses palpable, soft - normal vulva, vaginal mucosa, cervix doesn't have visible mass, possible small fibroid on bimanual exam ASSESSMENT / PLAN : 53 y.o. female here for acute visit. 1. Free fluid in pelvis, possible fibroids - pap obtained. Exam fairly unremarkable. U/s ordered 2. Severe chronic back pain - HLA B27 positive. Not sure how that related to this, other autoimimuneworkup has been negative. She is going to see neurology at [facility], but I ordered PT and ortho forhere due to worsening pain. Not discussed today, copied for future reference: 2. Raynauds - symptoms are much improved with norvasc. 3. ADD - continue adderall. She knows q3mo visits are necessary 4. Frequent UTIs/Incontinence with recent kidney stone - followed by the continence center and urology. - continue oxybutynin, gabapentin for pain 5. Depression/Anxiety - declines therapy at this time but she may be open to it in the future 6. Factor V leiden - followed by steve, on daily ASA Health Maintenance: Pap smear - UTD Jan 2015 Mammogram - 6 mo f/u due in July Colonoscopy - UTD Nov 2017, due 10 yrs Tdap - UTD Nov 2017 Shingrix - discuss when restocked Basic labs/lipids - UTD Oct 2017 documented in this encounter Miscellaneous Notes Result QuickNote - Mere Gonzales MD, MD - 08/26/2018 1115 EDT I have sent a [employer] message about the results. documented in this encounter Plan of Treatment Scheduled Orders Name Type Priority Associated Diagnoses Order S chedule PAP TEST- ORDER ONLY Pathology Routine Cervical cancer scre ening Ordered: 08/26/2018 Scheduled Referrals Name Type Priority Associated Diagnoses Order S chedule AMB CONS/FOLLOW UP Outpatient Referral EDIE Chronic bilater al Ordered: ORTHOPEDICS back pain, 08/26/2018 unspecified back location AMB CONS/FOLLOW UP Outpatient Referral Routine Chronic bilater al Ordered: PHYSICAL THERAPY back pain, 08/26/2018 unspecified back location documented as of this encounter Procedures Procedure Name Priority Date/Time Associated Comments Diagnosis GAME FARM SUPERVISOR US PELVIS Routine 09/14/2018 16:45 Free fluid in Results f or this TRANSVAGINAL EDT pelvis procedure are i n the results section. documented in this encounter Results GAME FARM SUPERVISOR US PELVIS TRANSVAGINAL (09/14/2018 16:45 EDT) Anatomical Region Laterality Modality Other Specimen Narrative [facility] - 09/14/2018 16:49 EDT Indication fluid in the pelvis on MRI, fibroid. Uterus ======= Uterus: ?Visualized Uterus position: ?? Anteverted Myometrium: ?Fibroid Uterus long ?7.9 cm Uterus ap ??3.9 cm Uterus tr ??4.6 cm Endometrial thickness, total ?? 5.0 mm Fibroids: ??Fibroids identified Findings: ??Intramural. Anterior Findings: ??Intramural. Anterior Findings: ??Intramural. Anterior Findings: ??Subserous. Fundal Right Ovary Rt ovary: ??Visualized, normal appearanc e Rt ovary D1 ?2.4 cm Rt ovary D2 ?1.5 cm Rt ovary D3 ?1.8 cm Rt ovary mean ??1.9 cm Rt ovary vol ?? 3.4 cm cubed Left Ovary Lt ovary: ??Visualized, normal appearanc e Lt ovary D1 ?2.1 cm Lt ovary D2 ?1.8 cm Lt ovary D3 ?1.2 cm Lt ovary mean ??1.7 cm Lt ovary vol ?? 2.3 cm cubed [place] Appears normal. Free fluid visualized (t race). Impression Transvaginal Pelvic [id number] Anteverted uterus that has a thin endome trial lining and multiple fibroids as described above. The ovaries are normal in appearance bilaterally. Follow-up with Dr. Gonzales. Comment ========= Ultrasound findings discussed w/patient. DATE OF SERVICE: 09/14/2018 Procedure Note John Tee MD, - 09/14/2018 Indication fluid in the pelvis on MRI, fibroid. Uterus ======= Uterus: Visualized Uterus position: Anteverted Myometrium: Fibroid Uterus long 7.9 cm Uterus ap 3.9 cm Uterus tr 4.6 cm Endometrial thickness, total 5.0 mm Fibroids: Fibroids identified Findings: Intramural. Anterior Findings: Intramural. Anterior Findings: Intramural. Anterior Findings: Subserous. Fundal Right Ovary Rt ovary: Visualized, normal appearance Rt ovary D1 2.4 cm Rt ovary D2 1.5 cm Rt ovary D3 1.8 cm Rt ovary mean 1.9 cm Rt ovary vol 3.4 cm cubed Left Ovary Lt ovary: Visualized, normal appearance Lt ovary D1 2.1 cm Lt ovary D2 1.8 cm Lt ovary D3 1.2 cm Lt ovary mean 1.7 cm Lt ovary vol 2.3 cm cubed [place] Appears normal. Free fluid visualized (t race). Impression Transvaginal Pelvic [id number] Anteverted uterus that has a thin endome trial lining and multiple fibroids as described above. The ovaries are normal in appearance bilaterally. Follow-up with Dr. Gonzales. Comment ========= Ultrasound findings discussed w/patient. DATE OF SERVICE: 09/14/2018 Performing Organization Address City/State/ZIP Code Phon e Number [facility] documented in this encounter Visit Diagnoses Diagnosis Free fluid in pelvis - Primary Chronic bilateral back pain, unspecified back location BMI 20.0-20.9, adult Cervical cancer screening Screening for malignant neoplasm of the cervix documented in this encounter Care Teams Clearance Coordinator Relationship Specialty Start Date End Date Mere Gonzales MD PCP - General 10/05/17 07/30/20 [address] [place] [address] documented as of this encounter
--- OUTSIDE RECORDS SUMMARY | 2021-11-28 01:52 | XMS_ITS | Encounter Summary ---
:1965 Author Organization [facility] Address [address] [place] [address] Care Team Providers Name Role Phone Mere Gonzales MD Primary Care Provider Encounter Details Date Type Department Care Team Description 11/21/2018 Results Only Imaging [facility] Garry Gonzales Adult Primary Care - MD Ayo Jimenez[address] [phone] Social History Tobacco Use Types Packs/Day Years [...] on filedocumented in this encounter Care Teams Safety Net Maker Relationship Specialty Start Date End Date Mere Gonzales MD PCP - General 10/05/17 07/30/20 [address] [place] [phone] documented as of this encounter
--- OUTSIDE RECORDS SUMMARY | 2021-11-28 01:52 | XMS_ITS | Encounter Summary ---
:1965 Author Organization [facility] Address [address] [place] [address] Care Team Providers Name Role Phone Nayeli Gonzales MD Primary Care Provider Reason for Visit Reason Onset Date Comments Other 07/04/2019 Medication questions Encounter Details Date Type Department Care Team Description 07/04/2019 Telephone [facility] Nayeli Gonzales Other (Medication Adult Primary Care - MD Barbara questions) [place] [address] [phone] Social History Tobacco Use Types Packs/Day [...] venlafaxine (EFFEXOR-XR) Take 1 Cap by mouth 30 Cap 2 09/09/2019 37.5 mg XR capsule daily. documented in this encounter Miscellaneous Notes Telephone Encounter - Fidelina Choi RN - 07/04/2019 1532 EDT Updated patient about the recommendations from Dr Gonzales below. The patient indicates understanding of these issues and agrees with the plan. No barriers. Patient plans to keep taking gabapentin at night the next several weeks as suggested. She is starting back to work Wednesday and plans to slowly decrease her dextroamphetamine-amphetamine to 1/2 tab dailythen 1/4 tab daily. Reinforced patient should contact office for side effects with medication changes and in two weeks even if everything is going great, just to let us know. ddendum Note - Nayeli Gonzales MD - 07/04/2019 1423 EDT Addended by: NAYELI GONZALES on: 07/04/2019 14:23 Modules accepted: Orders elephone Encounter - Nayeli Gonzales MD - 07/04/2019 1421 EDT We discussed communicating through triage and she was fine with that. Please let her know the following: I have ordered effexor at the lowest dose. It probably won't help at that low dose but I'd like to start there. In 2 weeks, if doing okay with it increase to 75mg daily (it starts at 37.5mg). Regarding the adderall - she can stop it any time. No tapering needed. Same with the gabapentin - she can stop taking it night (which is the only time she does it now). No tapering needed also. However, I think it would be smart to wait a few weeks for the effexor to start working before we get rid ofthe gabapentin entirely but it's up to her. elephone Encounter - Heather Mcdowell LPN - 07/04/2019 0284 EDT Patient would like to discuss medications discussed in the appointment today. Wants to maybe try Effexor, but maybe get rid of gabapentin and Adderall. Follow-up appointment set for 10/02/2019 HEATHER MCDOWELL LPN 07/04/2019 14:06 documented in this encounter Plan of Treatment Not on filedocumented as of this encounter Visit Diagnoses Not on filedocumented in this encounter Care Teams Infection Prevention Coordinator Relationship Specialty Start Date End Date Nayeli Gonzales MD PCP - General 10/05/17 07/30/20 [address] [place] [address] documented as of this encounter
--- OUTSIDE RECORDS SUMMARY | 2021-11-28 01:52 | XMS_ITS | Encounter Summary ---
:1965 Author Organization [facility] Address [address] [place] [address] Care Team Providers Name Role Phone Mere Gonzales MD Primary Care Provider Reason for Visit Reason Onset Date Comments Medications Refill 12/29/2018 Encounter Details Date Type Department Care Team Description 12/29/2018 Refill [facility] Adult Mere Gonzales, Medications Refill Primary Care - Tam HERNÁNDEZ [address] [place] [address] [place], [place] [phone] (Wo rk) Social History Tobacco Use [...] 1 Tab by mouth 28 Tab 0 01/05/2019 02/07/2019 ine (ADDERALL) 15 mg daily for 28 days. tablet Daily Max: 15 mg dextroamphetamine-amphetam Take 1 Tab by mouth 7 Tab 0 12/29/2018 12/29/2018 ine (ADDERALL) 15 mg daily for 7 days. tablet Daily Max: 15 mg documented in this encounter Miscellaneous Notes Telephone Encounter - Fidelina Arana PA - 12/29/2018 1654 EST eprescribed Adderall 15mg daily #7 elephone Encounter - Delia Awan RN - 12/29/2018 1548 EST Ditropan 5 mg CR was ordered 09/14/18, #90, 3 RF and receipt confirmed by pharmacy. Pt should have refills at the pharmacy. Adderall 15 mg tablets is not on current med list. It is in historical med list as last ordered 11/21/18- 12/19/18, #28. PCP out of the clinic until 01/02/19. Pending 7 day supply to PCP. elephone Encounter - Fidelina Salas - 12/29/2018 1443 EST Medication(s) Requested: ADDERALL & oxybutynin [facility] Is patient out of medication? Yes Last Refill Date: multiple refill dates Last Visit Date with Ordering Provider: 11/18/18 Next Non-Acute Visit Date Scheduled with Care Team: Yes. 02/20/19 Fidelina Salas 12/29/2018 14:43 documented in this encounter Plan of Treatment Not on filedocumented as of this encounter Visit Diagnoses Not on filedocumented in this encounter Discontinued Medications Medication Sig Discontinue Reason Start Date End Date dextroamphetamine-ampheta Take 1 Tab by mouth Reorder 11/22/19 19 12/29/2018 mine (ADDERALL) 15 mg daily for 28 days. tablet Daily Max: 15 mg dextroamphetamine-ampheta Take 1 Tab by mouth Reorder 12/30/19 19 12/29/2018 mine (ADDERALL) 15 mg daily for 7 days. tablet Daily Max: 15 mg documented as of this encounter Care Teams Product Inspection Supervisor Relationship Specialty Start Date End Date Mere Gonzales MD PCP - General 10/05/17 07/30/[address] [place] [phone] documented as of this encounter
--- OUTSIDE RECORDS SUMMARY | 2021-11-28 01:52 | XMS_ITS | Encounter Summary ---
:1965 Author Organization [facility] Address [address] [place] [address] Care Team Providers Name Role Phone Mere Gonzales MD Primary Care Provider Reason for Visit Reason Onset Date Comments Medications Refill 09/09/2018 Encounter Details Date Type Department Care Team Description 09/09/2018 Refill [facility] Adult Mere Gonzales, Medications Refill Primary Care - Tam HERNÁNDEZ [address] [place] [address] [place], [place] [phone] (Wo rk) Social History Tobacco Use [...] Date dextroamphetamine-ampheta Take 1 Tab by mouth 28 Tab 0 0 09/14/2018 10/25/2018 mine (ADDERALL) 15 mg daily for 28 days. tablet Daily Max: 15 mg oxybutynin (DITROPAN-XL) Take 1 Tab by mouth 90 Tab 3 09/18/2019 5 mg CR tablet daily. hydrOXYzine (ATARAX) 25 Take 1-2 tabs at 60 Tab 3 201805/22/2019 mg tablet bedtime prn anxiety gabapentin (NEURONTIN) Take 1 Cap by mouth 30 Cap 2 08/2309/15/2018 100 mg capsule 3 times daily. documented in this encounter Miscellaneous Notes Telephone Encounter - Dawson Frances - 09/14/2018 8874 EDT Requested Prescriptions Pending Prescriptions Disp Refills ??? gabapentin (NEURONTIN) 100 mg capsule 30 Cap 2 Sig: Take 1 Cap by mouth 3 times daily. ??? hydrOXYzine (ATARAX) 25 mg tablet 60 Tab 0 Sig: Take 1-2 tabs at bedtime prn anxiety ??? oxybutynin (DITROPAN-XL) 5 mg CR tablet 90 Tab 3 Sig: Take 1 Tab by mouth daily. ??? dextroamphetamine-amphetamine (ADDERALL) 15 mg tablet 28 Tab 0 Sig: Take 1 Tab by mouth daily for 28 days. Daily Max: 15 mg Pharmacy: [facility] Last Refill Date: 06/17/18, 07/21/18, 11/26/17, 08/10/18 Last Visit Date: 08/26/18 Next Non-Acute Visit Date Scheduled with Care Team: Yes. 09/21/2018 DAWSON FRANCES RN 09/14/2018 14:04 elephone Encounter - Mere Gonzales MD, MD - 09/09/2018 1701 EDT Please call pt and let her know that yes this will help with nerve pain. Also more clarification on what she's been taking, in her message it reads like 200mg AM and 100 at night for total of 300. We need to correct this script if so. Telephone Encounter - Barbie Castillo RN - 09/09/2018 1632 EDT From: Heike Salguero Sent: 09/09/2018 16:16 EDT Subject: Medication Renewal Request Heike Salguero would like a refill of the following medications: gabapentin (NEURONTIN) 300 mg capsule [Mere Gonzales MD] Patient Comment: a question ? Will this medication help with the pain that I am experiencing in my lower back and neck,shoulder, arm, hand area due to whatever is going on w ith my spine/nerves? if soI would like a refill, if not, I would like a call to talk about going off of it. I noticed an errorin the dosing, I had been taking 300mg, 2 at night and 1 in morning =300mg. The last script I received was 300mg and I have been taking in the morning only. I thought it was only a 100mg capsule. Preferred pharmacy: [facility] documented in this encounter Plan of Treatment Not on filedocumented as of this encounter Visit Diagnoses Not on filedocumented in this encounter Discontinued Medications Medication Sig Discontinue Reason Start Date End Date hydrOXYzine (ATARAX) 25 Take 1-2 tabs at Reorder 07/21/2018 09/14/2018 mg tablet bedtime prn anxiety oxybutynin (DITROPAN-XL) Take 1 Tab by mouth Reorder 8 09/14/2018 5 mg CR tablet daily. dextroamphetamine-amphet Take 1 tablet by Reorder 08/10/2018 09/14/2018 amine (ADDERALL) 15 mg mouth daily for 28 tablet days. Daily Max: 15 mg documented as of this encounter Care Teams Detector Car Operator Relationship Specialty Start Date End Date Mere Gonzales MD PCP - General 10/05/17 07/30/20 [address] [place] [phone] documented as of this encounter
--- OUTSIDE RECORDS SUMMARY | 2021-11-28 01:52 | XMS_ITS | Encounter Summary ---
:1965 Author Organization [facility] Address [address] [place] [address] Care Team Providers Name Role Phone Mere Gonzales MD Primary Care Provider Reason for Visit Reason Onset Date Comments Appointment Related 09/12/2018 Encounter Details Date Type Department Care Team Description 09/12/2018 Telephone [facility] Admin Appointment Related Health Improvement - [address], [address] [place] [address] Social History Tobacco Use Types [...] this encounter Miscellaneous Notes Telephone Encounter - Lainey Singh - 09/12/2018 1502 EDT Pt called [facility] to cancel 09/13 appointment, she'll call back to reschedule. documented in this encounter Plan of Treatment Not on filedocumented as of this encounter Visit Diagnoses Not on filedocumented in this encounter Care Teams It Technician Relationship Specialty Start Date End Date Mere Gonzales MD PCP - General 10/05/17 07/30/20 [address] [place] [phone] documented as of this encounter
--- OUTSIDE RECORDS SUMMARY | 2021-11-28 01:52 | XMS_ITS | Encounter Summary ---
:1965 Author Organization [facility] Address [address] [place] [address] Care Team Providers Name Role Phone Mere Gonzales MD Primary Care Provider Reason for Visit Reason Onset Date Comments Appointment Related 10/10/2018 Encounter Details Date Type Department Care Team Description 10/10/2018 Telephone [facility] Therapy, Physical Appo intment Related Rehabilitation Therapy - Medical Office [address] [phone] Social History Tobacco Use Types Packs/Day Years [...] Notes Telephone Encounter - Fauzia Pisano - 10/10/2018 0916 EDT REHABILITATION THERAPIES Medical Office Building, [address] [place] [address] , Option 1 Call was placed to patient regarding the appointment scheduled for today 10/10@10:45. No voicemail was left letting the patient know that the appointment was cancelled due to the clinician being out of the office with a sick child, as the voicemail was full and not accepting messages. documented in this encounter Plan of Treatment Not on filedocumented as of this encounter Visit Diagnoses Not on filedocumented in this encounter Care Teams Utility System Repairer Relationship Specialty Start Date End Date Mere Gonzales MD PCP - General 10/05/17 07/30/20 [address] [place] [phone] documented as of this encounter
--- OUTSIDE RECORDS SUMMARY | 2021-11-28 01:52 | XMS_ITS | Encounter Summary ---
:[address] [facility] Address [address] [place] [address] Care Team Providers Name Role Phone Mere Gonzales MD Primary Care Provider Reason for Visit Reason Comments Follow-up Encounter Details Date Type Department Care Team Description 02/20/2019 Office Visit [facility] Efren Gonzales ilateral back pain, unspecified back location (Primary Dx); Adult Primary Care - Mere Jimenez MD ADHD, predominantly inattentive type; [address] Primary hypercoagulable state ([facility]) [address] [place] [address] [place] [phone] Social History Tobacco Use Types Packs/Day [...] Sign Reading Time Taken Comments Blood Pressure 128/72 02/20/2019 1104 EST Pulse 70 02/20/2019 1104 EST Temperature 37.1 ??C (98.8 ??F) 02/20/2019 1104 EST Respiratory Rate 14 02/20/2019 1104 EST Oxygen Saturation - - Inhaled Oxygen Concentration - - Weight 50.9 kg (112 lb 3.2 oz) 02/20/2019 1104 EST Height - - Body Mass Index 19.88 09/21/2018 1318 EDT documented in this encounter [...] 5 mg Take 1 Tab by mouth 90 Tab 3 0 03/07/2019 02/29/2020 tablet daily. dextroamphetamine-amphetam Take 1 Tab by mouth 28 Tab 0 03/07/2019 04/18/2019 ine (ADDERALL) 15 mg daily for 28 days. tablet Daily Max: 15 mg amLODIPine (NORVASC) 5 mg Take 1 Tab by mouth 11 Tab 0 1 05/09/2019 tablet daily. documented in this encounter Progress Notes Mere Gonzales MD - 02/20/2019 1100 EST Heike Salguero, 53 y.o. female PRIMARY CARE PROVIDER: Mere Gonzales CHIEF COMPLAINT: Chief Complaint Patient presents with ??? Follow-up HISTORY OF PRESENT ILLNESS: Heike Salguero is a 53 y.o. female here for follow-up. She is frustrated about the recent visit to orthopedics which wasn't helpful. She continues to have pain in the neck and left shoulder radiating down the arm and tightness that prevents her from being able to crossher arms/legs easily. She feels that PT hasn't been helpful. Continues to see acupuncture and she saw a holistic practitioner recently. She had a NCS but I'm unclear of those results. The orthopedist ordered a pain clinic referral which she's been considering. Past medical, surgical, social and family history have been reviewed. Problem list reviewed. 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 She drinks 1 glass of wine /week. Nonsmoker. REVIEW OF SYSTEMS: A ten point ROS was performed and was negative except for pertinent positives in the HPI MEDICATION REVIEW: Medications reviewed & updated. ALLERGIES: Allergies as of 02/20/2019 ??? (No Known Allergies) PHYSICAL EXAM: Vitals: BP 128/72 Pulse 70 Temp 37.1 ??C (98.8 ??F) (Tympanic) Resp 14 Wt 50.9 kg (112 lb 3.2 oz) BMI 19.88 kg/m?? Gen - NAD Psych - alert and oriented x 3, normal mood and affect Neuro - CN II-XII grossly intact, normal gait ASSESSMENT / PLAN : 53 y.o. female here for follow-up. 1. Severe chronic back pain/radicular symptoms - both C spine and Lspine (MRIs are viewable on care everywhere from [facility]). There is significant disc bulging and stenosis at multiple levels so I think the pain clinic is a good idea to pursue. We also discussed possibly second opinion if needed. I have no idea what the NCS showed so I have requested she get me that report because we may need to pursue that as it could be causing her UE symptoms. - Continue gabapentin - Pt has had a FULL rheumatologic workup that has been negative - this doesn't feel like fibromyalgia to me. Also CRP has been negative many times so very unlikely to be PMR as stated in the orthopedist note. PMR was an incorrect diagnosis and has been perpetuated on the chart which I have attempted to delete. Please stop using this diagnosis which is incorrect. Iwonder if it's contributed to orthopedics not being as willing to pursue this. 2. ADD - continue adderall. She knows q6mo visits are necessary 3. Factor V leiden - followed by steve, on daily ASA. Discussed wearing compression stockings on upcoming flight Not discussed today, copied for future reference: 3. Memory loss - MOCA was . Provided reassurance but she'd like to pursue memory testing. I have ordered TSH, syphilis and B12 also. 4. Depression/Anxiety - declines therapy at this time but she may be open to it in the future. 5. Raynauds - symptoms are much improved with norvasc. 7. Frequent UTIs/Incontinence with recent kidney stone - followed by the continence center and urology. - continue oxybutynin, gabapentin for pain Health Maintenance: Pap smear - UTD Jan 2015 Mammogram - UTD July 2018 Colonoscopy - UTD Nov 2017, due 10 yrs Tdap - UTD Nov 2017 Shingrix - discuss when restocked Basic labs/lipids - UTD Oct 2017 Return in about 3 months (around 05/22/2019). documented in this encounter Plan of Treatment Not on filedocumented as of this encounter Visit Diagnoses Diagnosis Chronic bilateral back pain, unspecified back location - Primary ADHD, predominantly inattentive type Attention deficit disorder without menti on of hyperactivity Primary hypercoagulable state ([facility]) ([facility]) Primary hypercoagulable state documented in this encounter Discontinued Medications Medication Sig Discontinue Reason Start Date End Date amLODIPine (NORVASC) 5 TAKE ONE TABLET BY Reorder 10/28/2018 02/20/2019 mg tablet MOUTH EVERY DAY dextroamphetamine-amphet Take 1 Tab by mouth Reorder 9 02/20/2019 amine (ADDERALL) 15 mg daily for 28 days. tablet Daily Max: 15 mg documented as of this encounter Care Teams Magnesium Mill Operator Relationship Specialty Start Date End Date Mere Gonzales MD PCP - General 10/05/17 07/30/20 [address] [place] [phone] documented as of this encounter
--- OUTSIDE RECORDS SUMMARY | 2021-11-28 01:52 | XMS_ITS | Encounter Summary ---
:1965 Author Organization [facility] Address [address] [place] [address] Care Team Providers Name Role Phone Mere Gonzales MD Primary Care Provider Encounter Details Date Type Department Care Team Description 04/07/2019 Travel Social History Tobacco Use Types Packs/Day [...] on filedocumented in this encounter Care Teams Reconciliation Analyst Relationship Specialty Start Date End Date Mere Gonzales MD PCP - General 10/05/17 07/30/20 [address] [place] [phone] documented as of this encounter
--- OUTSIDE RECORDS SUMMARY | 2021-11-28 01:52 | XMS_ITS | Encounter Summary ---
:1965 Author Organization [facility] Address [address] [place] [address] Care Team Providers Name Role Phone Mere Gonzales MD Primary Care Provider Reason for Visit Reason Onset Date Comments Appointment Related 01/05/2019 Encounter Details Date Type Department Care Team Description 01/05/2019 Telephone [facility] Adult Mere Gonzales, Appointment Related Primary Care - Tam HERNÁNDEZ [address] [place] [address] [place], [place] [phone] (Wo rk) Social History Tobacco Use [...] Telephone Encounter - Fidelina Choi RN - 01/06/2019 0828 EST Patient is at orthopedics appointment right now. elephone Encounter - Barbie Salas - 01/05/2019 1636 EST Reason for Call: Appointment Related Summary/Symptoms: Pt says that she would like to get advise on whether it is still worth while to go to her ortho apptin the morning, says that it is with a PA, not an MD. Says that she has seen someone before and was not impressed, so doesn't want to be just getting the run around. Onset and Duration: tomorrow morning 01.05.19 8:30am Appointment Offered? No Barbie Salas 01/05/2019 16:36 documented in this encounter Plan of Treatment Not on filedocumented as of this encounter Visit Diagnoses Not on filedocumented in this encounter Care Teams Basket Operator Relationship Specialty Start Date End Date Mere Gonzales MD PCP - General 10/05/17 07/30/20 [address] [place] [phone] documented as of this encounter
--- OUTSIDE RECORDS SUMMARY | 2021-11-28 01:52 | XMS_ITS | Encounter Summary ---
:1965 Author Organization [facility] Address [address] [place] [address] Care Team Providers Name Role Phone Mere Gonzales MD Primary Care Provider Reason for Visit Reason Onset Date Comments Medications Refill 05/09/2019 Encounter Details Date Type Department Care Team Description 05/09/2019 Refill [facility] Adult Mere Gonzales, Medications Refill Primary Care - Tma HERNÁNDEZ [address] [place] [address] [place], [place] [phone] (Wo rk) Social History Tobacco Use [...] Notes Telephone Encounter - Barbie Salas - 05/09/2019 1303 EDT Requested Prescriptions Pending Prescriptions Disp Refills ??? traZODone (DESYREL) 50 mg tablet 30 Tab 2 Sig: Take 1 Tab by mouth at bedtime. [id number] - [address] Confirmed Pharmacy? Yes Patient out of medication? Unknown Last Refill Date: 01.16.19 Refills left? (explain exceptions requiring early refill) No Recent Visits Date Type Provider Dept 02/20/19 Office Visit Mere Gonzales MD [facility] 11/18/18 Office Visit Mere Gonzales MD [facility] 09/21/18 Office Visit Mere Gonzales MD [facility] 08/26/18 Office Visit Mere Gonzales MD [facility] 06/20/18 Office Visit Mere Gonzales MD [facility] 02/21/18 Office Visit Mere Gonzales MD [facility] 01/28/18 Office Visit Zenobia Hawkins PA-C [facility] 11/26/17 Office Visit Mere Gonzales MD [facility] Showing recent visits within past 540 days with a meds authorizing provider and meeting all other requirements Future Appointments Date Type Provider Dept 05/22/19 Appointment Mere Gonzales MD [facility] Showing future appointments within next 150 days with a meds authorizing provider and meeting all other requirements Future appointment: Already Scheduled Barbie Salas 05/09/2019 13:03 documented in this encounter Plan of Treatment Not on filedocumented as of this encounter Visit Diagnoses Not on filedocumented in this encounter Care Teams Loan Processing Supervisor Relationship Specialty Start Date End Date Mere Gonzales MD PCP - General 10/05/17 07/30/20 [address] [place] [phone] documented as of this encounter
--- OUTSIDE RECORDS SUMMARY | 2021-11-28 01:52 | XMS_ITS | Encounter Summary ---
:1965 Author Organization [facility] Address [address] [place] [address] Care Team Providers Name Role Phone Mere Gonzales MD Primary Care Provider Reason for Visit Reason Onset Date Comments Results 08/15/2018 Encounter Details Date Type Department Care Team Description 08/15/2018 Telephone [facility] Adult Mere Day MD Results Primary Care - [address] [phone] (Wo rk) Social History Tobacco Use Types [...] Encounter - Mere Gonzales MD, MD - 08/17/2018 1254 EDT Noted. Telephone Encounter - Marissa Howard RN - 08/17/2018 1137 EDT Call to pt recieved a call Dr stubbs who wanted to scheduled EMG Advised her to call Dr Stubbs's office to get more information Pt given Dr Stubbs's P# at [facility] Advised pt that if sooner opening appears with Dr Gonzales we will let her know Pt feeling overwhelmed by all her appts coming up Advised her to get more information about the EMG before deciding not to do it; advised her the moreanswers she can get the better Advised her also that sometimes it takes a while for things to get rolling, so to have upcoming appts is a good thing Pt seemed reassured Advised her we would keep Dr Gonzales in the loop elephone Encounter - Gilda Goodson - 08/17/2018 1132 EDT Patient calling to follow up from phone call yesterday she has more questions for Nurse Kitchen. Telephone Encounter - Fidelina Choi RN - 08/16/2018 1540 EDT Updated patient about the recommendations from Dr Gonzales below. The patient indicates understanding of these issues and agrees with the plan. No barriers. Appointment made for next available on September 01, patient also added to cancellation list. Educated patient to call office if she has any new symptoms including increased abdominal pain or vaginal bleeding. elephone Encounter - Mere Gonzales MD, MD - 08/16/2018 1448 EDT I looked through it but it's very vague finding on the MRI. I'd prefer we have a visit to discuss. elephone Encounter - Fidelina Choi RN - 08/16/2018 1214 EDT Spoke to patient she would like to review the unexpected finding on the MRI from [facility] including the uterine masses. Patient states she has chronic abdominal pain any way. Pain in joints is stable. Patient wanted to remind you of her multiple scans here over the last couple years that may show something. Patient would like call to discus or dose she need an appointment? elephone Encounter - Gilda Goodson - 08/15/2018 1551 EDT Patient just received her results from her MRI from [facility]. She would like to go over them. documented in this encounter Plan of Treatment Not on filedocumented as of this encounter Visit Diagnoses Not on filedocumented in this encounter Care Teams Licensed Prosthetist/Orthotist Relationship Specialty Start Date End Date Mere Gonzales MD PCP - General 10/05/17 07/30/20 [address] [place] [phone] documented as of this encounter
--- OUTSIDE RECORDS SUMMARY | 2021-11-28 01:52 | XMS_ITS | Encounter Summary ---
:1965 Author Organization [facility] Address [address] [place] [address] Care Team Providers Name Role Phone Mere Gonzales MD Primary Care Provider Reason for Visit Reason Comments Pain Pain Consult (Routine) - Specialty Report Received Specialty Diagnoses / Procedures Referred By Contact Refer red To Contact Orthopedic Surgery Diagnoses Bilateral carpal tunnel syndrome Abbe Johnson PA-C [facility] [address] [facility] [place] [address] [place] [phone] Referral ID Status Reason Start Expiration Visits Visits Date Date Requested Authorized [id number] Specialty Specialty 1 1 Report Services 9 Received Required Encounter Details Date Type Department Care Team Description 04/07/2019 Office Visit [facility] Quintin Mcrae Pain in both upper Hand & Upper Extremity MD [place] extremities (Primary Program - [facility] [address]) [address] [facility] [phone] [id number] Social History Tobacco Use Types Packs/Day Years [...] documented as of this encounter Progress Notes Quintin Mcrae MD - 04/07/2019 0800 EST Heike Salguero is a 54 y.o.yo female presenting in clinic today. Chief Complaint Patient presents with ??? Left Arm - Pain ??? Right Arm - Pain Past Medical History: Diagnosis Date ??? Chronic abdominal pain ??? Factor V Leiden ([facility]) 10/29/2017 homozygote. FH VTE ??? Frequent UTI 10/29/2017 ??? Hypertension ??? Post herpetic neuralgia ??? Primary hypercoagulable state ([facility]) 02/03/2018 -factor V Leiden homozygosity and elevated D-dimer (285) with FH thrombosis and FVL in her mother. Full thrombosis panel other than prothrombin mutation (no coverage) negative. -no prior hx VTE ??? Raynaud phenomenon 10/29/2017 Patient Active Problem List Diagnosis Date Noted ??? Primary hypercoagulable state ([facility]) 02/03/2018 Priority: Medium ??? Hypertension Priority: Medium ??? Overactive bladder 01/31/2018 Priority: Medium ??? Moderate episode of recurrent major depressive disorder ([facility]) 11/26/2017 Priority: Medium ??? Chronic abdominal pain 10/29/2017 Priority: Medium ??? Constipation 10/29/2017 Priority: Medium ??? Raynaud phenomenon 10/29/2017 Priority: Medium ??? Frequent UTI 10/29/2017 Priority: Medium ??? ADHD, predominantly inattentive type 03/10/2013 Priority: Medium Past Surgical History: Procedure Laterality Date ??? [...] Disorder Daughter Factor V Leiden Social History Socioeconomic History ??? Marital status: Spouse name: Not on file ??? Number of children: Not on file ??? Years of education: Not on file ??? Highest education level: Not on file Occupational History ??? Not on file Social Needs ??? Financial resource strain: Not on file ??? Food insecurity: Worry: Not on file Inability: Not on file ??? Transportation needs: Medical: Not on file Non-medical: Not on file Tobacco Use ??? Smoking status: Never Smoker ??? Smokeless tobacco: Never Used Substance and Sexual Activity ??? Alcohol use: Yes Comment: 1 wine with dinner ??? Drug use: No ??? Sexual activity: Yes Partners: Male control/protection: Surgical Comment: vas Lifestyle ??? Physical activity: Days per week: Not on file Minutes per session: Not on file ??? Stress: Not on file Relationships ??? Social connections: Talks on phone: Not on file Gets together: Not on file Attends amish service: Not on file Active member of club or organization: Not on file Attends meetings of clubs or organizations: Not on file Relationship status: Not on file ??? Intimate partner violence: Fear of current or ex partner: Not on file Emotionally abused: Not on file Physically abused: Not on file Forced sexual activity: Not on file Other Topics Concern ??? 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 She drinks 1 glass of wine /week. Nonsmoker. Medications Prior to Today's Visit Medication Sig ??? amLODIPine (NORVASC) 5 mg tablet Take 1 Tab by mouth daily. (Patient not taking: Reported on 04/07/2019) ??? amLODIPine (NORVASC) 5 mg tablet Take 1 Tab by mouth daily. ??? aspirin (ASPIRIN LOW DOSE) 81 mg EC tablet Take 81 mg by mouth daily. ??? cannabidiol, CBD, (CANNABIDIOL ORAL) Take by mouth. CBD Oil ??? cyanocobalamin (VITAMIN B-12) 500 mcg tablet Take 500 mcg by mouth daily. ??? ergocalciferol, vitamin D2, (VITAMIN D ORAL) Take by mouth. ??? gabapentin (NEURONTIN) 300 mg capsule Take 1 capsule by mouth every morning AND 2 capsules at bedtime. ??? hydrOXYzine (ATARAX) 25 mg tablet Take 1-2 tabs at bedtime prn anxiety (Patient not taking: Reported on 02/20/2019) ??? magnesium oxide (MAG-OX) 400 mg (241.3 mg magnesium) tablet Take 400 mg by mouth daily. ??? oxybutynin (DITROPAN-XL) 5 mg CR tablet Take 1 Tab by mouth daily. ??? traZODone (DESYREL) 50 mg tablet Take 1 Tab by mouth at bedtime. ??? UNABLE TO FIND daily. Med Name: CBD oil No facility-administered medications prior to visit. No Known Allergies Summary of today's visit: Dear Abbe Johnson PA-C and Mere Gonzales I had the pleasure of seeing Heike Salguero today in the office at your request. As you know she has upper extremity limb pain on both sides. She is now here to discuss a diagnosis of provisional carpal tunnel syndrome that is superimposed onotherwise unexplained bilateral upper extremity limb pain. She has had no conservative care for presumed diagnosis of carpal tunnel syndrome. Today reviewed over her Dash score and it is not consistent with carpal tunnel syndrome. Her pain diagram is not consistent with carpal tunnel syndrome but is rather consistent with cervical radiculopathy. We talked about her history of upper extremity limb pain she does have a history of otherwise undiagnosed acute C7 radiculopathy possibly C6 radiculopathy in the past. She recovered from that but now has continued low level cervicalgia. She has significant deconditioning in her upper extremities. She does not involved in a generalized wellness program. Today on physical examination extension and lateral rotation and compression of her cervical spine reproduces pain down her arms along with triceps and into the dorsum and ulnar aspect of her forearms. She has significant scapular dyskinesis a tight pectoralis minor but no evidence of intrinsic pathology in the shoulders. She has multiple trigger points in the scapula posteriorly. Her forearms show perhaps a little bit of of atrophy in the ECRL ECRB muscles on the right side whencompared to the left there is no evidence of wasting of the FCU muscles. She has no intrinsic muscle atrophy of either hand. She is able to make a full composite fist and has no evidence of wrist instability. She has a mildly positive Mis's carpal tunnel compression test on both sides. Her Tinel's maneuvers at the wrists are equivocal and her Phalen's maneuvers are otherwise negative. Her EMG and nerve conduction study that was performed by Juanito Boykin confirms a double crush phenomenon with a burnt out cervical radiculopathy and a mild evidence of carpal tunnel syndrome. At this point in time she has had no treatment for these problems. I have recommended a trial of night splinting for carpal tunnel syndrome to see if her symptoms improve for her cervical spine pathology and generalized deconditioning I recommended a wellness program. I have suggested that she begin a product of a program of biking yoga swimming and other generalizedfitness activities for 30 minutes once a day as I imagine that that will significantly improve her situation. I reviewed over her cervical spine x-rays which confirm the diagnosis of cervical spine arthritis. I do not believe that a referral to a spine surgeon will be of value to her. Should she fail night splinting for carpal tunnel syndrome and wishes to proceed with its potential corticosteroid injection she should return to the upper extremity center and see 1 of our physicians assistants who will be able to provide her with consent continued conservative care for a provisionaldiagnosis of carpal tunnel syndrome. There is no need to follow-up with me at this time. Today otherwise all other questions were answered she is disappointed that I do not have a focused solution for her problem. Today 30 minutes were spent [id number] with the patient with 20 minutes spent on counseling and coordination of care. Quintin Mcrae MD 04/07/2019 13:16 Dictated using Dragon, not read. documented in this encounter Plan of Treatment Not on filedocumented as of this encounter Visit Diagnoses Diagnosis Pain in both upper extremities - Primary documented in this encounter Discontinued Medications Medication Sig Discontinue Reason Start Date End Date UNABLE TO FIND daily. Med Name: CBD oil Duplicate order 04/07/2019 documented as of this encounter Historical Medications This list may reflect changes made after this encounter. Medication Sig Dispensed Refills Start Date End Date cannabidiol, CBD, Take by mouth. CBD 0 04/25/2020 (CANNABIDIOL ORAL) Oil UNABLE TO FIND daily. Med Name: 0 03/25 CBD oil added in this encounter Care Teams Material Planning Analyst Relationship Specialty Start Date End Date Mere Gonzales MD PCP - General 10/05/17 07/30/20 [address] [place] [address] documented as of this encounter
--- OUTSIDE RECORDS SUMMARY | 2021-11-28 01:52 | XMS_ITS | Encounter Summary ---
:1965 Author Organization [facility] Address [address] [place] [address] Care Team Providers Name Role Phone Mere Gonzales MD Primary Care Provider Reason for Referral Referral (Routine) - Specialty Report Received Specialty Diagnoses / Procedures Referred By Contact Refer red To Contact Pain Medicine Diagnoses Chronic bilateral low back pain, unspecified whether sciatica present Abbe Johnson PA-C [facility] [address] [place] [address] [facility] [address] Phone: [phone] Referral ID Status Reason Start Expiration Visits Visits Date Date Requested Authorized [id number] Specialty Specialty 1 1 Report Services 9 Received Required Question Answer Has the patient had diagnostic studies? Yes Diagnotic Studies: X-Ray Have other specialty consultations been No completed for this pain compliant? We provide consultative services. We do not Yes assume the role of prescribing physician for this therapy. Please help us understand your area of interest by selecting from the common topics below: Should opioids be initiated on this patient? No Should opioids be continued on this patient? No Reason for Request: chronic back pain...discuss treatment options Reason for Visit Reason Comments Pain Bilateral leg pain Encounter Details Date Type Department Care Team Description 01/06/2019 Office Visit [facility] Abbe Johnson Chroni c bilateral low Spine Program - PA-C back pain, [facility] [address] unspecified whether [address] [facility] [place] of sciatica present So [facility] (Primary Dx) [address] [place] [address] (Wo rk) Social History Tobacco Use [...] encounter Progress Notes Abbe Johnson PA - 01/06/2019 0800 EST Heike Salguero is being seen as a consultation from Dr. Gonzales. Chief Complaint Patient presents with ??? Lower Back - Pain Bilateral leg pain There were no encounter diagnoses. HPI patient presents with a 3-year history of low back discomfort with no change in her symptoms hersymptoms are constant rating to the bilateral lower extremity through the whole leg and foot symptoms exacerbated by bending forward she finds some relief with standing and massage she is uncomfortableall the time she feels breakable and has a very limited range of motion. She has seen a superintendent geophysical laboratory apist for a total of 6 visits including her whole spine from her neck to her lumbar spine. No changein her symptoms. She did see an metal cut off saw tender without significant change. She does not have a home exercise program HPI Patient Active Problem List Diagnosis ??? ADHD, predominantly inattentive type ??? Chronic abdominal pain ??? Constipation ??? PMR (polymyalgia rheumatica) ([facility]) ??? Raynaud phenomenon ??? Frequent UTI ??? Moderate episode of recurrent major depressive disorder ([facility]) ??? Overactive bladder ??? Hypertension ??? Primary hypercoagulable state ([facility]) Past Medical History: Diagnosis Date ??? Chronic abdominal pain ??? Factor V Leiden ([facility]) 10/29/2017 homozygote. FH VTE ??? Frequent UTI 10/29/2017 ??? Hypertension ??? PMR (polymyalgia rheumatica) ([facility]) ??? Post herpetic neuralgia ??? Primary hypercoagulable state ([facility]) 02/03/2018 -factor V Leiden homozygosity and elevated [...] prn anxiety (Patient not taking: Reported on 11/18/2018) 60 Tab 3 ??? magnesium oxide (MAG-OX) [...] No Known Allergies Review of Systems Constitutional: Negative for activity change. Eyes: Negative for visual disturbance. Respiratory: Negative for wheezing. Cardiovascular: Negative for palpitations. Gastrointestinal: Negative for constipation. Genitourinary: Negative for difficulty urinating. Musculoskeletal: Positive for back pain, neck pain and neck stiffness. Skin: Negative for rash. Neurological: Positive for numbness. Negative for weakness. Psychiatric/Behavioral: The patient is not nervous/anxious. Physical Exam Constitutional: She is oriented to person, place, and time. She appears well- developed and well-nourished. No distress. Eyes: EOM are normal. Cardiovascular: Normal rate. Pulmonary/Chest: Effort normal. Neurological: She is alert and oriented to person, place, and time. Skin: Skin is warm and dry. Psychiatric: She has a normal mood and affect. Back Exam Comments: Gait is normal heel walking is normal No lesions rashes or hair savage palp tenderness increased pain with axial compression and axial rotation FROM Strength 5/5 soft touch intact Reflexes 1 DP2 babinski is down there is no clonus SLR right: neg Left: neg Neurologic Exam Mental Status Oriented to person, place, and time. Cranial Nerves CN III, IV, Extraocular motions are normal. The prior workup of the patient includes: Lumbar films January 2018 revealed disc degeneration at L4-5 and L5-S1 otherwise good alignment CT scan abdomen pelvis reveals disc degeneration at L4-5 and a moderate degeneration at L5-S1 with severe left foraminal narrowing at L5-S1 no significant central canal stenosis this was dated January2018 Assessment Muscular skeletal low back pain likely majority related to deconditioning physical exam reveals no signs of nerve root impingement. Patient has 4-5 waddle signs reflecting a degree of symptom amplification in this case. There is been very little effort and conservative care with this patient. 6 visitsof PT is not sufficient to determine if this would be successful or not. Patient also does not have a home exercise program. To participate in the care of your patient consider always at least 6 weeks of PT versus memory care program resident. Also patient has chronic pain this is a pain management issue and should have followed up with the pain service. Plan: Pain service consult Strongly suggested a regular home excise program Activity as tolerated without mentation Would not recommend narcotics in this patient No follow-up at spine Dr. Mcrae was available for consultation but was not consulted documented in this encounter Plan of Treatment Scheduled Referrals Name Type Priority Associated Order Schedule Diagnoses AMB CONS/FOLLOW UP PAIN Outpatient Routine Chronic Bilateral Ordered: INTERVENTIONAL Referral Low Back Pain, 01/06/2019 Unspecified Whether Sciatica Present documented as of this encounter Visit Diagnoses Diagnosis Chronic bilateral low back pain, unspeci fied whether sciatica present - Primary documented in this encounter Care Teams Aircraft Technician Relationship Specialty Start Date End Date Mere Gonzales MD PCP - General 10/05/17 07/30/20 [address] [place] [id number] documented as of this encounter
--- OUTSIDE RECORDS SUMMARY | 2021-11-28 01:52 | XMS_ITS | Encounter Summary ---
:1965 Author Organization [facility] Address [address] [place] [address] Care Team Providers Name Role Phone Mere Gonzales MD Primary Care Provider Reason for Visit Reason Onset Date Comments Appointment Related 03/01/2019 Encounter Details Date Type Department Care Team Description 03/01/2019 Telephone [facility] Dedra Potts intment Related Rehabilitation Therapy - R, PT Medical Office [address] [phone] Social History Tobacco Use Types Packs/Day Years [...] Notes Telephone Encounter - Jovana Torres - 03/01/2019 1603 EST The patient called to get back onto Dedra Potts's schedule. Her back is still bothering her andshe wanted to try doing a couple more PT appointments. documented in this encounter Plan of Treatment Not on filedocumented as of this encounter Visit Diagnoses Not on filedocumented in this encounter Care Teams Operations Support Representative Relationship Specialty Start Date End Date Mere Gonzales MD PCP - General 10/05/17 07/30/20 [address] [place] [address] documented as of this encounter
--- OUTSIDE RECORDS SUMMARY | 2021-11-28 01:53 | XMS_ITS | Encounter Summary ---
:1965 Author Organization [facility] Address [address] [place] [address] Care Team Providers Name Role Phone Mere Gonzales MD Primary Care Provider Reason for Visit Reason Onset Date Comments Appointment Related 01/28/2018 surgery call Encounter Details Date Type Department Care Team Description 01/28/2018 Telephone [facility] Pelvic Mele Sims ppointment Related Medicine and Felicitas Damian MD (surgery call ) Reconstructive Surgery - [address] [facility] Medical Office [place] [phone] [address] [facility] [phone] [place] [address] (Work) [phone] Social History Tobacco Use Types Packs/Day Years [...] this encounter Miscellaneous Notes Telephone Encounter - Analy Irene - 01/28/2018 1003 EST Left message w/ [employer] voicemail . Arrive at registration for 7:55am [facility] for their procedure on 01.31.18. Patient given the following instructions; NPO after midnight/can have clear liquids up to 4 hrs of arrival time, up to 5:55am . Please shower the night before and the morning off, with antibacterial soap Wear no perfume, cologne, lotions, sprays, or deodorants No nail thai on nails, please remove all jewlery and piercing Wear comfortable lose fitting clothing If you wear contacts, please leave them at home and bring your glasses with you Please leave all personal belongings at home, if you need to have them with ask a family member to watch them for you. Patient will have a ride home. documented in this encounter Plan of Treatment Not on filedocumented as of this encounter Visit Diagnoses Not on filedocumented in this encounter Care Teams Clinical Team Manager Relationship Specialty Start Date End Date Mere Gonzales MD PCP - General 10/05/17 07/30/20 [address] [place] [address] documented as of this encounter
--- OUTSIDE RECORDS SUMMARY | 2021-11-28 01:53 | XMS_ITS | Encounter Summary ---
:1965 Author Organization [facility] Address [address] [place] [address] Care Team Providers Name Role Phone Mere Gonzales MD Primary Care Provider Reason for Visit Reason Comments Follow-up Encounter Details Date Type Department Care Team Description 02/07/2018 Office Visit [facility] Christine Alvares MD Primary hypercoagulable Hematology & [facility] (HCC-CM S) Oncology - [facility] (Primary Dx) [facility], [address], [address] [place] [phone] (Wo rk) Social History Tobacco Use Types [...] Sign Reading Time Taken Comments Blood Pressure 125/81 02/07/2018 1520 EST Pulse 79 02/07/2018 1520 EST Temperature 37.3 ??C (99.2 ??F) 02/07/2018 1520 EST Respiratory Rate 16 02/07/2018 1520 EST Oxygen Saturation 97% 02/07/2018 1520 EST Inhaled Oxygen Concentration - - Weight 51.3 kg (113 lb) 02/07/2018 1520 EST Height - - Body Mass Index 20.02 02/07/2018 0938 EST documented in this encounter Functional Status Functional [...] as of this encounter Patient Instructions Patient InstructionsChristine Alvares MD - 02/07/2018 15:00 EST -You should have low dose blood thinning in risk settings in the future, like surgery, trauma or immobility. This will help prevent thrombosis in these situations. We are always happy to help plan treatment in these instances. Please let us know well in advance of any elective surgery so that we can help you. documented in this encounter Progress Notes Christine Alvares MD - 02/07/2018 1500 EST Thrombosis & Hemostasis Program (THP) Follow Up Visit Date of Service: 02/07/2018 Problem List: Patient Active Problem List Diagnosis ??? Primary hypercoagulable state (HCC-CMS) -factor V Leiden homozygosity and elevated D-dimer (285) with FH thrombosis and FVL in her mother. Full thrombosis panel other than prothrombin mutation (no coverage) negative. -no prior hx VTE ??? Hypertension ??? Moderate episode of recurrent major depressive disorder (HCC-CMS) ??? PMR (polymyalgia rheumatica) (HCC-CMS) ??? Raynaud phenomenon ??? ADHD, predominantly inattentive type ??? Overactive bladder ??? Chronic abdominal pain ??? Constipation ??? Frequent UTI CC: Chief Complaint Patient presents with ??? Follow-up HPI: 52 yo woman comes to see me for the first time after seeing my CAPTAIN/CHECK AIRMAN Danitza Ramey for homozygous factor V Leiden. This was found due to FH thrombosis in her mother, who lives in [facility]. She also has PMR and had a lot of complaints of leg pain so Danitza ruled out DVT and PAD with imaging. She also se nt the rest of a thrombosis panel. Pt here to review results and for counseling. She was started on ASA 81 mg daily. Since that visit she had minor surgery 01/31 for removal of an InterStim device, under general anesthesia, and is now also on rivaroxaban 10 mg daily for DVT prophylaxis, which she completes later this week. She has had no s/sx DVT or PE. Takes norvasc for raynauds with great effect. She is trying to taper her prednisone. ROS: I completed a 10 point review of systems which is documented on the follow up visit form scanned into Other Machine Pertinent positives: per form Pertinent negatives: per form Social History: Patient reports that has never smoked. she has never used smokeless tobacco. She reports that she drinks alcohol. She reports that she does not use drugs. 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 She drinks 1 glass of wine /week. Nonsmoker. Medications: Current Outpatient Medications: amLODIPine (NORVASC) 5 mg tablet aspirin (ASPIRIN LOW DOSE) 81 mg EC tablet cyanocobalamin (VITAMIN B-12) 500 mcg tablet dextroamphetamine-amphetamine (ADDERALL) 15 mg tablet ergocalciferol, vitamin D2, (VITAMIN D ORAL) hydrOXYzine (ATARAX) 25 mg tablet magnesium oxide (MAG-OX) 400 mg (241.3 mg magnesium) tablet meloxicam (MOBIC) 15 mg tablet omeprazole (PRILOSEC) 20 mg capsule oxybutynin (DITROPAN-XL) 5 mg CR tablet predniSONE (DELTASONE) 1 mg tablet UNABLE TO FIND No current facility-administered medications for this visit. Allergies: Patient has No Known Allergies. Physical Exam: Vitals: 02/07/18 1520 BP: 125/81 Pulse: 79 Resp: 16 Temp: 37.3 ??C (99.2 ??F) TempSrc: Tympanic SpO2: 97% Weight: 51.3 kg (113 lb) Estimated body mass index is 20.02 kg/m?? as calculated from the following: Height as of an earlier encounter on 02/07/18: 160 cm (63). Weight as of this encounter: 51.3 kg (113 lb). Gen: Alert and oriented x3. No distress. Labs: Complete Blood Count Lab Results Component Value Date WBC 7.32 01/24/2018 WBC 11.62 03/23/2016 WBC 3.88 (L) 06/08/2011 RBC 4.33 01/24/2018 HGB 13.7 01/24/2018 HGB 16.1 (H) 03/23/2016 HGB 13.7 06/08/2011 HCT 39.5 01/24/2018 MCV 91 01/24/2018 PLT 391 (H) 01/24/2018 PLT 419 (H) 03/23/2016 PLT 291 06/08/2011 MPV 9.1 (L) 01/24/2018 RDWCV 12.6 01/24/2018 Lab Results Component Value Date DIFFTYPE Automated 01/24/2018 NEUTROABS 5.13 01/24/2018 LYMPHSABS 1.55 01/24/2018 MONOSABS 0.48 01/24/2018 EOSABS 0.09 01/24/2018 BASOSABS 0.05 01/24/2018 Chemistries Lab Results Component Value Date NA 137 01/24/2018 K 3.9 01/24/2018 CL 100 01/24/2018 CO2 30 01/24/2018 BUN 20 01/24/2018 CREATININE 0.68 01/24/2018 CALCGFR 102 01/24/2018 CALCIUM 9.8 01/24/2018 CALCCA 9.5 01/24/2018 ALKPHOS 66 01/24/2018 AST 24 01/24/2018 ALT 28 01/24/2018 CONJBILI 0.0 10/06/2004 UNCONJBILI 0.4 10/06/2004 BILIRUBIN Neg 02/07/2018 TBIL <0.5 01/24/2018 TP 6.9 01/24/2018 LABALBU 4.4 01/24/2018 AGRATIO 1.6 10/26/2001 LIPASE 89 08/03/2002 Cardiovascular No results found for: SCRP Lab Results Component Value Date CHOL 201 10/29/2017 LDLBASE 86 10/29/2017 CHOLHDL 2.1 10/29/2017 HDL 98 10/29/2017 TRIG 85 10/29/2017 No results found for: BNP, CRPS, HOMOCYS, HOMOCYSTEINE, TROPONINI, POCTROP Thrombosis Panel Lab Results Component Value Date PROTIME 11.4 11/22/2017 INR 1.0 11/22/2017 PTT 30 11/22/2017 DDIMER 285 (H) 11/22/2017 ANTITHROM 105 11/22/2017 FACTVIIIFA8 112 11/22/2017 PROTCCLOT 116 11/22/2017 PROTSCLOT 82 11/22/2017 CARDIOLIGGC 1.75 11/22/2017 CARDIOLIGMC 12.27 11/22/2017 DRVVT 28.0 11/22/2017 SCT 37.8 11/22/2017 Imaging: Results for orders placed in visit on 11/22/17 VL LOWER VENOUS (DVT) BILATERAL Narrative Vascular Diagnostic Laboratory [facility] [place], [facility], [facility] [address] [place] [address] Technologist: Lamont Torres Fellow: IMPRESSIONS 1. There is no significant reflux in the bilateral common femoral, femoral, popliteal, and greater and short saphenous veins. 2. No evidence of deep or superficial vein thrombosis in the right lower extremity or the left lower extremity. Preliminary results available in [facility]ISM. PROCEDURE: Bilateral lower extremity venous ultrasound; common femoral, proximal profunda femoral, femoral, popliteal, posterior tibial, peroneal, and greater saphenous veins are routinely examined. 2D ultrasound, compression, color flow Doppler, and spectral Doppler. INDICATION: BLE pain and swelling. HISTORY: Factor V Leiden. RISK FACTORS: Family history of deep vein thrombosis. VENOUS FLOW AND IMAGING: + + +------+ Vein Sonographic findings Diam + + +------+ Right s-f junction With no reflux. 0.35cm + + +------+ Right GSV mid thigh With no reflux. 0.34cm + + +------+ Right GSV knee With no reflux. 0.28cm + + +------+ Right SSV With no reflux. 0.31cm + + +------+ Left s-f junction With no reflux. 0.58cm + + +------+ Left GSV mid thigh With no reflux. 0.37cm + + +------+ Left GSV knee With no reflux. 0.38cm + + +------+ Left SSV With no reflux. 0.09cm + + +------+ * GREYSCALE FINDINGS: Normal right lower extremity venous ultrasound: all segments visualized were compressible with spontaneous and phasic flow. Normal left lower extremity venous ultrasound: all segments visualized were compressible with spontaneous and phasic flow. Electronically signed by: Dino Blanco 11/26/2017 10:12 Assessment: 52 yo woman with factor V Leiden homozygosity found due to FH thrombosis in her mother. She does nothave other VTE risk factors like obesity. She has no CV risk factors. She has elevated D-dimer, consistent with her genetic thrombophilia, and there is not a second disorder present (though B2 GP 1 antibodies were not thoroughly checked due to clerical error - only IgA checked). 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 Her 10y ASCVD risk is estimated at <1% based on her lipids and recent BP trends (even if she has HTN). Her daughters are using contraceptives and one who lives in [place] recently was switched to progestin only. I told the pt an IUD would be preferable in general and even LEEANNE isn't 100% contraindicated in all pts, depending on their risk profile (pointed out her daughter's are lower risk than her since theyare heterozygote and also have no first degree relative with thrombosis. Plan: -I don't think she needs half-way aspirin or antithrombotic treatment -maintain healthy lifestyle -thorough education done on factor V Leiden, including genetic counseling. Handouts given on this specifically and on VTE in general. -check B2 GP1 antibody, recheck d-dimer since she is going to the lab anyway and her level was mildly up. -Low dose anticoagulation to prevent thrombosis in risk settings in the future, such as surgery, trauma, hospital stay or immobility. We are always happy to help plan treatment in these instances. I advised the patient to inform us in advance of any elective surgery where this might be needed. -- I gave the patient good web educational resources including our website and that of the [place] [employer] (heart.org/VTE), StopTheClot.org, and WorldThrombosisDay.org. I also suggested thatthey follow @WorldThrombosisDay and @American_Heart on Twitter or Seafile for reliable information. -return PRN I spent 40 minutes face to face with the patient today, with 25 minutes solely in counseling and education Please contact my office with questions/concerns. Christine Alvares MD, MSc accounts payable coordinator Director, Thrombosis and Hemostasis Program CC: Mere Ramey documented in this encounter Plan of Treatment Not on filedocumented as of this encounter Results (ABNORMAL) D-DIMER (02/09/2018 15:21 EST) [facility] D-Dimer 236 (H) <230 ng/mL [facility] Comment: LABORATORY SERVICES CUTOFF VALUE FOR THE EXCLUSION OF DVT and PE: 230 ng/m L D-dimer units Any use of the age-adjusted cutoff value is a post-analytic modification of this FDA-approved test and is considered off-label use of the test result. [facility] laboratory does not have literature to support the validity of an age-adjusted cutoff for our specific assay. Specimen Blood specimen (specimen) - Blood Performing Organization Address City/State/ZIP Code Phon e Number [facility] [address] [place] [address] SERVICES BETA 2 GLYCOPROTEIN ANTIBODY PANEL (02/09/2018 15:21 EST) Beta 2 GP1 Ab IgG <9.4 <15.0 [facility] (Negative) LABORATORY U/mL SERVICES Beta 2 GP1 Ab IgM <9.4 <15.0 [facility] Comment: (Negative) LABORATORY Performed or Referred by: [facility] Purvi maria [facility], [address] U/[place] [address] Specimen Blood specimen (specimen) - Blood Performing Organization Address City/[facility] Code Phon e Number [facility] [address] [place] [address] SERVICES documented in this encounter Visit Diagnoses Diagnosis Primary hypercoagulable state (HCC-CMS) (HCC) - Primary Primary hypercoagulable state documented in this encounter Discontinued Medications Medication Sig Discontinue Reason Start Date End Date LAXATIVE, BISACODYL, ORAL Take by mouth. Therapy completed 02/07/2018 HYDROmorphone (DILAUDID) 2 Take 1 Tab by Therapy completed 02/01/20 18 02/07/2018 mg tablet mouth every 8 hours as needed for Pain. Daily Max: 6 mg ondansetron (ZOFRAN-ODT) 4 Take 1 Tab by Therapy completed 02/01/20 18 02/07/2018 mg disintegrating tablet mouth every 8 hours as needed for Nausea. documented as of this encounter Care Teams Director Of Public Safety Relationship Specialty Start Date End Date Mere Gonazles MD PCP - General 10/05/17 07/30/20 [address] [place] [phone] documented as of this encounter
--- OUTSIDE RECORDS SUMMARY | 2021-11-28 01:53 | XMS_ITS | Encounter Summary ---
:1965 Author Organization [facility] Address [address] [place] [address] Care Team Providers Name Role Phone Mere Gonzales MD Primary Care Provider Encounter Details Date Type Department Care Team Description 02/02/2018 Hospital Encounter [facility] [address] [facility] 2 [place], [place] [id number] [place] [phone] (Wo rk) Social History Tobacco Use Types [...] as of this encounter Discharge Diagnoses Diagnosis R92.2 Inconclusive mammogram-R92.2[ICD-1 0-CM] R92.1 Mammographic calcification found o n diagnostic imaging of breast-R92.1[ICD-10-CM] documented in this encounter Medications at Time of Discharge Medication Sig Dispensed Refills Start Date End Date amLODIPine (NORVASC) 5 mg Take 1 Tab by 90 Tab 1 018 04/25/2018 tablet mouth daily. aspirin (ASPIRIN LOW DOSE) Take 81 mg by 0 09/16/2020 81 mg EC tablet mouth daily. cephALEXin (KEFLEX) 250 mg Take 1 Cap by 12 Cap 0 201702/03/2018 capsule mouth every 6 hours for 3 days. cyanocobalamin (VITAMIN Take 500 mcg by 0 08/29/2021 B-12) 500 mcg tablet mouth daily. dextroamphetamine-amphetami Take 1 Tab by 28 Tab 0 11/2606/18/2018 ne (ADDERALL) 15 mg tablet mouth daily for 28 days. Daily Max: 15 mg dextroamphetamine-amphetami Take 1 Tab by 28 Tab 0 01/2102/21/2018 ne (ADDERALL) 15 mg tablet mouth daily. Daily Max: 15 mg dextroamphetamine-amphetami Take 1 Tab by 28 Tab 0 12/2406/18/2018 ne (ADDERALL) 15 mg tablet mouth daily for 28 days. Daily Max: 15 mg ergocalciferol, vitamin D2, Take by mouth. 0 08/05/2020 (VITAMIN D ORAL) HYDROmorphone (DILAUDID) 2 Take 1 Tab by 5 Tab 0 201702/07/2018 mg tablet mouth every 8 hours as needed for Pain. Daily Max: 6 mg hydrOXYzine (ATARAX) 25 mg Take 1 Tab by 90 Tab 3 201707/21/2018 tablet mouth every evening. LAXATIVE, BISACODYL, ORAL Take by mouth. 0 02/07/2018 magnesium oxide (MAG-OX) Take 400 mg by 0 08/05/2020 400 mg (241.3 mg magnesium) mouth daily. tablet meloxicam (MOBIC) 15 mg Take 0.5-1 Tabs by 30 Tab 2 04/201702/21/2018 tabletIndications: Primary mouth daily. 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 omeprazole (PRILOSEC) 20 mg Take 1 Cap by 30 Cap 2 01/2402/21/2018 capsuleIndications: History mouth daily. of gastroesophageal reflux (GERD) ondansetron (ZOFRAN-ODT) 4 Take 1 Tab by 11 Tab 0 201702/07/2018 mg disintegrating tablet mouth every 8 hours as needed for Nausea. oxybutynin (DITROPAN-XL) 5 Take 1 Tab by 90 Tab 3 201709/14/2018 mg CR tablet mouth daily. predniSONE (DELTASONE) 1 mg Take 4 Tabs by 120 Tab 0 08/201702/04/2018 tablet mouth daily. Total dose 9 mg(+5mg tab) rivaroxaban (XARELTO) 10 mg Take 1 Tab by 10 Tab 0 02/0102/07/2018 tablet tabletIndications: mouth daily. Factor V Leiden ([facility]) ([facility]) UNABLE TO FIND Med Name: Tiffanie 0 05/24 documented as of this encounter Discharge Disposition Disposition Code Departure Means Destination Auto Discharge Home documented in this encounter Plan of Treatment Not on filedocumented as of this encounter Visit Diagnoses Not on filedocumented in this encounter Care Teams Regional Facilities Specialist Relationship Specialty Start Date End Date Mere Gonzales MD PCP - General 10/05/17 07/30/20 [address] [place] [phone] documented as of this encounter
--- OUTSIDE RECORDS SUMMARY | 2021-11-28 01:53 | XMS_ITS | Encounter Summary ---
:1965 Author Organization [facility] Address [address] [place] [address] Care Team Providers Name Role Phone Mere Gonzales MD Primary Care Provider Encounter Details Date Type Department Care Team Description 02/10/2018 Orders Only [facility] Alex Ren Nephnoble olithiasis (Primary Urology - Medical MD [place] Dx) Office Building [address] [place] [address], [facility] [address] [facility] [place], [place] Pavilion, [address] [place] [address] [phone] (Wo rk) Social History Tobacco Use [...] kidney documented in this encounter Care Teams Forestry Crew Chief Relationship Specialty Start Date End Date Mere Gonzales MD PCP - General 10/05/17 07/30/20 [address] [place] [phone] documented as of this encounter
--- OUTSIDE RECORDS SUMMARY | 2021-11-28 01:53 | XMS_ITS | Encounter Summary ---
:1965 Author Organization [facility] Address [address] [place] [address] Care Team Providers Name Role Phone Mere Gonzales MD Primary Care Provider Reason for Visit Reason Onset Date Comments Other 01/26/2018 Surgery question (In terstim removal) Encounter Details Date Type Department Care Team Description 01/26/2018 Telephone [facility] Pelvic Fidelina Engle, Other (Surgery Medicine and RN question (Inter stim Reconstructive Surgery - rem oval)) Medical Office [facility] [address] [place] [address] Social History Tobacco Use Types Packs/Day Years [...] encounter Miscellaneous Notes Telephone Encounter - Fidelina Engle RN - 01/26/2018 5419 EST Pt called to ask what the post-op restrictions may be with Interstim removal. I told pt she should do no heavy lifting x 2 weeks post op. The OR staff should give pt post-op care instructions for care of sutured site. She also wanted to know if she would be able to go to her mammogram a couple days after - I told pt she should have no issue and should be able to go, as long as she is feeling up to it. She was also curious about the time of her surgery on 01/31/2018, I advised her that our surgery scheduled, Muna will call her the Wednesday prior to her appt to let her know and the reason for that is surgeries occasionally get bumped. She is aware, no further questions. documented in this encounter Plan of Treatment Not on filedocumented as of this encounter Visit Diagnoses Not on filedocumented in this encounter Care Teams Utility Bag Assembler Relationship Specialty Start Date End Date Mere Gonzales MD PCP - General 10/05/17 07/30/[address] [place] [phone] documented as of this encounter
--- OUTSIDE RECORDS SUMMARY | 2021-11-28 01:53 | XMS_ITS | Encounter Summary ---
:1965 Author Organization [facility] Address [address] [place] [address] Care Team Providers Name Role Phone Mere Gonzales MD Primary Care Provider Reason for Visit Reason Onset Date Comments Medication Management 02/04/2018 Hematuria 02/04/2018 Encounter Details Date Type Department Care Team Description 02/04/2018 Telephone [facility] Mere Gonzales Medic ation Management; Adult Primary Care - MD Barbara [address] [phone] Social History Tobacco Use Types Packs/Day [...] Sig Dispensed Refills Start Date End Date predniSONE (DELTASONE) 1 Take 5 Tabs by mouth 105 Tab 0 1 04/07/2017 02/21/2018 mg tablet daily. Decrease dose by 0.5mg every 3 weeks- Current dose 5mg daily documented in this encounter Miscellaneous Notes Telephone Encounter - Marissa Howard RN - 02/04/2018 1517 EST Call to Patient Relayed message per Fidelina Arana Patient expressed understanding with no barriers No additional questions or concerns to be addressed at this time Has a f/u with Dr Gonzales 02/21 elephone Encounter - Fidelina Arana PA - 02/04/2018 1507 EST eprescribed 1 mg tabs #105(pt taking 5 daily x 3 weeks, then cut down per Dr. Carmona's note on 01/24.) will defer to Dr. Gonzales for future refills. Telephone Encounter - Kory Duggan RN - 02/04/2018 1237 EST Call to Patient States that Dr. Carmona was supporting Dr. Gonzales's plan to taper off prednisone and the prednisone taper is not managed by rheumatology Patient states that she does not know what she has been taking recently as she has been taking half tabs of different strengths and has been at the tail end of her supply and is now complete out of themedication Patient states that she believes she should be on 5mg daily at this time for the next three weeks Plan to decreased 0.5mg every three weeks Order pended to covering provider as PCP is out of the office today and Patient is completely out ofthe medication Patient also states that she is having some blood in her urine today s/p urology procedure on 01/31/18 States that she does not have dysuria but does have known and ongoing vaginal discomfort I advised that she update surgical team Patient has appointment scheduled with surgical team on 02/07 To provider of session for review and recommendations Please see pended order elephone Encounter - Teresa Luna - 02/04/2018 1154 EST Reason for Call: Medication Management and Hematuria Summary/Symptoms: Pt calling with a few questions about her taper down process with prednisone. She says that she had begun the taper down process with Dr. Carmona's office, the dosing we have on file did not match what pt said. She is requesting a refill of the prednisone. Pt also calling to say she is experiencing blood in her urine. She says she just had a procedure done with Dr. Hogan recently. She said that she doesn't think that blood in her urine is related, she does not have pain while urination, she says she does have ongoing vaginal pain. Only sees blood whenshe urinates. I asked if she has called the surgeons office to report symptoms and she had not done so. Onset and Duration? Today Appointment Offered? No Teresa Luna 02/04/2018 12:03 documented in this encounter Plan of Treatment Not on filedocumented as of this encounter Visit Diagnoses Not on filedocumented in this encounter Discontinued Medications Medication Sig Discontinue Reason Start Date End Date predniSONE (DELTASONE) 1 Take 4 Tabs by Reorder 10/29/2017 1 04/07/2017 mg tablet mouth daily. Total dose 9 mg(+5mg tab) documented as of this encounter Care Teams Energy Sales Broker Relationship Specialty Start Date End Date Mere Gonzales MD PCP - General 10/05/17 07/30/20 [address] [place] [phone] documented as of this encounter
--- OUTSIDE RECORDS SUMMARY | 2021-11-28 01:53 | XMS_ITS | Encounter Summary ---
:1965 Author Organization [facility] Address [address] [place] [address] Care Team Providers Name Role Phone Mere Gonzales MD Primary Care Provider Reason for Visit Reason Comments Follow-up Encounter Details Date Type Department Care Team Description 01/06/2018 Office Visit [facility] Levi, Urinary urgency Pelvic Medicine and [place] (Primary Dx) Reconstructive Surgery - [address] [facility] Medical Office [place] [phone] 0 [facility] [phone] [place] [address] (Work) [phone] Social History Tobacco Use Types Packs/Day Years Used Date Never Smoker Smokeless Tobacco: Never Used Alcohol Use Standard Drinks/Week Comments Yes 0 (1 standard drink = 0.6 oz pure alcoho l) Food Insecurity Answer Date Recorded Within the [...] of a physical, mental, or emotional condition, No 11/25/2017 does this person have difficulty doing errands alone such as visiting a doctor's office or shopping? Cognitive Status Response Date of Assessment Because of a physical, mental, or emotional condition, No 11/25/2017 does this person have serious difficulty concentrating, remembering, or making decisions? documented as of this encounter Progress Notes Shay Chan LPN - 01/06/2018 0984 EST Bladder Instillation DX: Urinary Hesitancy Patient in today for bladder instillation of 20 mL of 4% Lidocaine, per Dr Hogan Urinalysis was not obtained per Dr Hogan Bladder instillation was given. LIdocaine gel 2.25% was not applied to urethra prior to insertion of 10 fr catheter into bladder. Bladder drained fully prior to administration of instillation as ordered (see MAR). ?? Heparin 87593 Units, Solumedrol 125mg, Lidocaine 2%, 10cc, Sodium Bicarbonate 8.4%, 5ml and Bacteriostatic Water, 10ml mixed and instilled into the bladder via catheter. Catheter removed after instillation. The patient tolerated procedure well. I was supervised by Dr Hogan who was present and immediately available in the office suite. SHAY CHAN LPN 01/06/2018 10:48 Felicitas Gonzalez MD - 01/06/2018 0987 EST Subjective: Heike Salguero is a 52 y.o. female with a chief complaint of urinary hesitancy. The patient waslast seen in the urology clinic on December 03. The medical records were reviewed in preparation for this office visit. To summarize the pertinent urologic history, she has a history of malfunctioning InterStim and is due for removal from this. She reports urinary hesitancy and near constant sensation of needing to void following stent removal in October. Today, Heike Salguero reports she continues to have urinary hesitancy. She reports lower abdominal pressure and will try to void but then only 1-2 drops come out. This has been present since her stent removal and has becoming increasingly bothersome for her. Bladder scan today showed complete emptying. Patient's medications, allergies, past medical, surgical, social and family histories were reviewed and updated as appropriate. Review of pertinent medical records was completed prior to today's visit. Complete review of systems reviewed with patient and is positive for urinary hesitancy, abdominal discomfort, depression, joint pain, easily clots Objective: Constitutional: ? There were no vitals taken for this visit. There is no height or weight on file to calculate BMI.She is in no apparent distress. Psych: The patient is alert and oriented x3. Eyes: ? Eyes show no scleral icterus. Respiratory: ? Respiratory effort is normal. Gastrointestinal: ? Soft, nontender, nondistended. ? No masses. ? The bladder is not palpable. ? There is no flank tenderness. In Office Procedures/Testing: Lidocaine instillation performed in office today Assessment: Heike Salguero is a 52 y.o. female with hesitancy. We reviewed the patient's symptoms and came to an agreement about the following plan: Plan: 1. See if effects of lidocaine instillation help 2. Begin 1 tsp of baking soda in warm water for irritation 3. Continue PFPT 4. Consider Flomax if this does not help documented in this encounter Plan of Treatment Not on filedocumented as of this encounter Visit Diagnoses Diagnosis Urinary urgency - Primary Urgency of urination documented in this encounter Care Teams Child Abuse Worker Relationship Specialty Start Date End Date Mere Gonzales MD PCP - General 10/05/17 07/30/20 [address] [place] [address] documented as of this encounter
--- OUTSIDE RECORDS SUMMARY | 2021-11-28 01:53 | XMS_ITS | Encounter Summary ---
:1965 Author Organization [facility] Address [address] [place] [address] Care Team Providers Name Role Phone Meer Gonzales MD Primary Care Provider Encounter Details Date Type Department Care Team Description 02/09/2018 Phlebotomy Only [facility] hypercoagulable state [address] [facility] ([facility]) (Primary Dx) [place], [place] [address] Social History Tobacco Use Types Packs/Day Years [...] Name Priority Date/Time Associated Diagnosis Comme nts BETA 2 GLYCOPROTEIN Routine 02/09/2018 15:21 Primary hypercoag ulable Results for this ANTIBODY PANEL EST state (HCC-CMS) procedure are in the results section. D-DIMER Routine 02/09/2018 15:21 Primary hypercoagulable Results for this EST state (HCC-CMS) procedure ar e in the results section. documented in this encounter Results (ABNORMAL) D-DIMER (02/09/2018 15:21 EST) Pathologist Sig nature D-Dimer 236 (H) <230 ng/mL [facility] Comment: LABORATORY SERVICES CUTOFF VALUE FOR THE EXCLUSION OF DVT and PE: 230 ng/m L D-dimer units Any use of the age-adjusted cutoff value is a post-analytic modification of this FDA-approved test and is considered off-label use of the test result. [facility] laboratory does not have literature to support the validity of an age-adjusted cutoff for our specific assay. Specimen Blood specimen (specimen) - Blood Performing Organization Address City/[facility] Phon e Number [facility]ORATORY [address] [place] [address] SERVICES BETA 2 GLYCOPROTEIN ANTIBODY PANEL (02/09/2018 15:21 EST) Beta 2 GP1 Ab IgG <9.4 <15.0 [facility] (Negative) LABORATORY U/mL SERVICES Beta 2 GP1 Ab IgM <9.4 <15.0 [facility] Comment: (Negative) LABORATORY Performed or Referred by: [facility] Purvi maria [facility], [address] U/[place] [address] Specimen Blood specimen (specimen) - Blood Performing Organization Address City/[facility] Phon e Number [facility] [address] [place] [address] SERVICES documented in this encounter Visit Diagnoses Diagnosis Primary hypercoagulable state (HCC-CMS) (HCC) - Primary Primary hypercoagulable state documented in this encounter Care Teams Canal Boat Operator Relationship Specialty Start Date End Date Mere Gonzales MD PCP - General 10/05/17 07/30/20 2 [place] [address] documented as of this encounter
--- OUTSIDE RECORDS SUMMARY | 2021-11-28 01:53 | XMS_ITS | Encounter Summary ---
:1965 Author Organization [facility] Address [address] [place] [address] Care Team Providers Name Role Phone Mere Gonzales MD Primary Care Provider Encounter Details Date Type Department Care Team Description 02/02/2018 Results Only Imaging [facility] Garry Gonzales Adult Primary Care - MD Ayo Jimenez[address] [phone] Social History Tobacco Use Types Packs/Day Years [...] Priority Date/Time Associated Diagnosis Comme nts MA MAMMO DIAG BILAT 02/02/2018 8:56 EST R esults for this DIGITAL procedure are i n the results section. documented in this encounter Results MA MAMMO DIAG BILAT DIGITAL (02/02/2018 8:56 EST) Anatomical Region Laterality Modality Other Specimen Narrative [facility] - 02/02/2018 10:01 EST BILATERAL 2D DX OR AV ??MAMMO EXAM ??02/02/2018 8:56 AM Clinical History/Comments: bilateral breast inconclusive mammogram bilateral breast calcifications upper outer quadrants Comparisons: All prior mammograms. Findings left breast mammogram: Digital diagnostic left breast mammograp hy was performed in the spot magnification compression CC and ML view s. The breast tissue is heterogeneously den se which may lower the sensitivity of mammography and obscure s mall masses. Calcifications in the recent screening mammogram are ve ry faint in the upper outer quadrant. They are difficult to characte rize but are felt likely benign as there are similar calcificatio ns in the contralateral breast. Findings right breast mammogram: Digital diagnostic right breast mammogra phy was performed in the spot magnification compression CC and ML views. The breast tissue is heterogeneously den se which may lower the sensitivity of mammography and obscure s mall masses. There are groups of calcifications in the upper ou ter quadrant; many of which appear to layer. There are also very kade nt scattered calcifications in the upper outer quadrant posteriorly. These are all felt likely to be benign. Impression bilateral breasts: BI-RADS Ca tegory 3. Probably benign. Recommendation bilateral breasts: 6 kindra h follow-up mammography in the spot magnification compression CC an d ML views. Overall assessment: Probably benign. The chief ultrasound technologist discussed t he radiologist's imaging interpretation and recommendations with the patient at the time of the examination. The patient will be notified of her kyrie st imaging results via a lay letter from Radiology. ??Radiology will contact the patient directly regarding any findings which require add itional imaging. Portions of this document may have bee n prepared using voice recognition software or keyboard data en try. ??Minor irregularities or keyboard misprints may be present. Procedure Note Vira Uriarte MD - 02/02/2018 BILATERAL 2D DX OR AV MAMMO EXAM 018 8:56 AM Clinical History/Comments: bilateral breast inconclusive mammogram bilateral breast calcifications upper outer quadrants Comparisons: All prior mammograms. Findings left breast mammogram: Digital diagnostic left breast mammograp hy was performed in the spot magnification compression CC and ML view s. The breast tissue is heterogeneously den se which may lower the sensitivity of mammography and obscure s mall masses. Calcifications in the recent screening mammogram are ve ry faint in the upper outer quadrant. They are difficult to characte rize but are felt likely benign as there are similar calcificatio ns in the contralateral breast. Findings right breast mammogram: Digital diagnostic right breast mammogra phy was performed in the spot magnification compression CC and ML views. The breast tissue is heterogeneously den se which may lower the sensitivity of mammography and obscure s mall masses. There are groups of calcifications in the upper ou ter quadrant; many of which appear to layer. There are also very kade nt scattered calcifications in the upper outer quadrant posteriorly. These are all felt likely to be benign. Impression bilateral breasts: BI-RADS Ca tegory 3. Probably benign. Recommendation bilateral breasts: 6 kindra h follow-up mammography in the spot magnification compression CC an d ML views. Overall assessment: Probably benign. The chief ultrasound technologist discussed t he radiologist's imaging interpretation and recommendations with the patient at the time of the examination. The patient will be notified of her kyrie st imaging results via a lay letter from Radiology. Radiology will co ntact the patient directly regarding any findings which require add itional imaging. Portions of this document may have bee n prepared using voice recognition software or keyboard data en try. Minor irregularities or keyboard misprints may be present. Performing Organization Address City/State/ZIP Code Phon e Number [facility] documented in this encounter Visit Diagnoses Not on filedocumented in this encounter Care Teams Primary Products Inspectors Relationship Specialty Start Date End Date Mere Gonzales MD PCP - General 10/05/17 07/30/20 [address] [place] [phone] documented as of this encounter
--- OUTSIDE RECORDS SUMMARY | 2021-11-28 01:53 | XMS_ITS | Encounter Summary ---
:1965 Author Organization [facility] Address [address] [place] [address] Care Team Providers Name Role Phone Mere Gonzales MD Primary Care Provider Reason for Visit Reason Onset Date Comments Medications Refill 06/13/2018 Encounter Details Date Type Department Care Team Description 06/13/2018 Refill [facility] Adult Mere Gonzales, Medications Refill Primary Care - Tam HERNÁNDEZ [address] [place] [address] [place], [place] [phone] (Wo rk) Social History Tobacco Use [...] Start Date End Date dextroamphetamine-amphetam Take 1 tablet by 30 tablet 0 07/16/2018 ine (ADDERALL) 15 mg mouth daily for 30 tablet days. Daily Max: 15 mg documented in this encounter Miscellaneous Notes Telephone Encounter - Apple Blanco - 06/15/2018 1045 EDT Pt called today, she needs before the weekend. elephone Encounter - Gilda Goodson - 06/13/2018 0959 EDT Medication(s) Requested: dextroamphetamine-amphetamine (ADDERALL) 15 mg tablet [[id number]] Order Details Dose: 15 mg Route: oral Frequency: DAILY Dispense Quantity: 30 tablet Refills: 0 Fills remaining: -- ?? Sig: Take 1 tablet by mouth daily for 30 days. ??Daily Max: 15 mg ?? Written Date: 05/17/18 Expiration Date: 08/15/18 Start Date: 05/17/18 End Date: 06/16/18 after 30 doses Earliest Fill Date: 05/17/18 Preferred Pharmacy: [facility] [place] Is patient out of medication? No Has 4 left Last Visit Date with Ordering Provider: Next Non-Acute Visit Date Scheduled with Care Team: Yes.06/20/18 Gilda Goodson 06/13/2018 10:00 documented in this encounter Plan of Treatment Not on filedocumented as of this encounter Visit Diagnoses Not on filedocumented in this encounter Discontinued Medications Medication Sig Discontinue Reason Start Date End Date dextroamphetamine-amphet Take 1 tablet by Reorder 05/17/2018 06/13/2018 amine (ADDERALL) 15 mg mouth daily for 30 tablet days. Daily Max: 15 mg documented as of this encounter Care Teams Panel Edge Sealer Relationship Specialty Start Date End Date Mere Gonzales MD PCP - General 10/05/17 07/30/20 [address] [place] [phone] documented as of this encounter
--- OUTSIDE RECORDS SUMMARY | 2021-11-28 01:53 | XMS_ITS | Encounter Summary ---
:1965 Author Organization [facility] Address [address] [place] [address] Care Team Providers Name Role Phone Mere Gonzales MD Primary Care Provider Encounter Details Date Type Department Care Team Description 01/31/2018 Pre-Procedure [facility] Elías Sims carmelina bladder Orders Encounter Pelvic Medicine and Felicitas Damian MD (Primary Dx) Reconstructive Surgery [address] [facility] - Medical Office [address] [phone] [address] [facility] (Work) [place] [address] Social History Tobacco Use Types [...] as of this encounter Visit Diagnoses Diagnosis Overactive bladder - Primary Hypertonicity of bladder documented in this encounter Care Teams Harness Maker Relationship Specialty Start Date End Date Mere Gonzales MD PCP - General 10/05/17 07/30/20 [address] [place] [phone] documented as of this encounter
--- OUTSIDE RECORDS SUMMARY | 2021-11-28 01:53 | XMS_ITS | Encounter Summary ---
:1965 Author Organization [facility] Address [address] [place] [address] Care Team Providers Name Role Phone Mere Gonzales MD Primary Care Provider Reason for Referral Radiology Services (Routine) - Closed Specialty Diagnoses / Procedures Referred By Contact Refer red To Contact Diagnoses Current chronic use of systemic steroids Napoleon Carmona Chi, MD Procedures DXA DUAL XRAY ABSORPTIOMETRY FOR BONE DENSITY [address] [phone] Referral ID Status Reason Start Date Expiration Date Visits Requ ested Visits Authorized [id number] Closed 02/24/2018 1 1 adiology Services (Routine) - Closed Specialty Diagnoses / Procedures Referred By Contact Refer red To Contact Diagnoses Primary osteoarthritis involving multiple joints Napoleon Carmona Chi, MD Procedures KNEES STANDING BILATERAL AP [address] [phone] Referral ID Status Reason Start Date Expiration Date Visits Requ ested Visits Authorized [id number] Closed 01/24/2018 1 1 adiology Services (Routine) - Closed Specialty Diagnoses / Procedures Referred By Contact Refer red To Contact Diagnoses Primary osteoarthritis involving multiple joints Napoleon Carmona Chi, MD Procedures SHOULDER 2 OR MORE VIEWS [address] [place], [place] [phone] Referral ID Status Reason Start Date Expiration Date Visits Requ ested Visits Authorized [id number] Closed 01/24/2018 1 1 adiology Services (Routine) - Closed Specialty Diagnoses / Procedures Referred By Contact Refer red To Contact Diagnoses Primary osteoarthritis involving multiple joints Napoleon Carmona Chi, MD Procedures L SPINE 2-3 VIEWS [address] [phone] Referral ID Status Reason Start Date Expiration Date Visits Requ ested Visits Authorized [id number] Closed 01/24/2018 1 1 adiology Services (Routine) - Closed Specialty Diagnoses / Procedures Referred By Contact Refer red To Contact Diagnoses Primary osteoarthritis involving multiple joints Napoleon Carmona Chi, MD Procedures CERVICAL SPINE 2-[address] [place] [phone] Referral ID Status Reason Start Date Expiration Date Visits Requ ested Visits Authorized [id number] Closed 01/24/2018 1 1 Reason for Visit Reason Comments Joint Pain Shoulders, elbows, hands, hi ps Joint Swelling Hands Muscle Pain Arms Back Pain Lower back Fatigue Pt reports decent sleep on m edication, without it very difficult Other Hives New Patient Visit pt is being seen at the requ est of Mere Gonzales and Elle Izquierdo for evaluation of above symp toms. Encounter Details Date Type Department Care Team Description 01/24/2018 Office Visit [facility] Napoleon Carmona Chi, MD Joint stiffness of multiple sites (Prima ry Dx); Rheumatology & [address] [place] [address] Primary ost eoarthritis involving multiple joints; Immunology - [facility] Raynaud's disease without gangrene; [facility] History of gastroesophageal reflux (GERD); [address] [place] [address] [place] L[place]re[place], Level 5 Current chronic [place] of [place] [address] [place], [place] [phone] Social History Tobacco Use Types Packs/Day Years [...] Sign Reading Time Taken Comments Blood Pressure 133/71 01/24/2018 0902 EST Pulse 77 01/24/2018 0902 EST Temperature - - Respiratory Rate - - Oxygen Saturation - - Inhaled Oxygen Concentration - - Weight 51.8 kg (114 lb 3.2 oz) 01/24/2018 0902 EST Height 160.2 cm (5' 3.07) 01/24/2018 0902 EST Body Mass Index 20.18 01/24/2018 0902 EST documented in this encounter Functional Status [...] as of this encounter Discharge Diagnoses Diagnosis M47.892 Other spondylosis, cervical salomon on-M47.892[ICD-10-CM] M54.5 Low back pain-M54.5[ICD-10-CM] G89.29 Other chronic pain-G89.29[ICD-10- CM] M19.012 Primary osteoarthritis, left brian ulder-M19.012[ICD-10-CM] M19.011 Primary osteoarthritis, right sh oulder-M19.011[ICD-10-CM] M25.562 Pain in left knee-M25.562[ICD-10 -CM] M25.561 Pain in right knee-M25.561[ICD-1 0-CM] M25.552 Pain in left hip-M25.552[ICD-10- CM] M25.551 Pain in right hip-M25.551[ICD-10 -CM] documented in this encounter Patient Instructions Patient InstructionsNapoleon Carmona Chi, MD - 01/24/2018 9:10 EST Continue the slow taper of prednisone tapering by 0.5 mg per 3 weeks. Take meloxicam for the joint stiffness. Try cutting back on the adderall. documented in this encounter Ordered Prescriptions Prescription Sig Dispensed Refills Start Date End Date omeprazole (PRILOSEC) 20 mg Take 1 Cap by 30 Cap 2 01/2402/21/2018 capsuleIndications: History mouth daily. of gastroesophageal reflux (GERD) meloxicam (MOBIC) 15 mg Take 0.5-1 Tabs by 30 Tab 2 04/201702/21/2018 tabletIndications: Primary mouth daily. 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 documented in this encounter Discharge Disposition Disposition Code Departure Means Destination Auto Discharge documented in this encounter Progress Notes Napoleon Carmona Chi, MD - 01/24/2018 0910 EST Images from the original note were not included. Subjective: Patient ID: Heike Salguero is an 52 y.o. female. Chief Complaint Patient presents with ??? Joint Pain Shoulders, elbows, hands, hips ??? Joint Swelling Hands ??? Muscle Pain Arms ??? Back Pain Lower back ??? Fatigue Pt reports decent sleep on medication, without it very difficult ??? Other Hives ??? New Patient Visit pt is being seen at the request of Mere Gonzales and Elle Izquierdo for evaluation of above symptoms. Dx with PMR 3 yrs ago, by the PCP. She has had severe upper extremity pain with stiffness from the chest up such that she had great difficulty moving-she may have had labs performed at [facility] which she does not recall the results of. She had no insurance until recently, but can afford the prednisone. She has had chronic limited ROM of the neck for years. She has been on prednisone 10 mg daily for almost 3years; she started weaning in September by 0.5 mg / 3 weeks, and is now at 5.5 mg qd. She is here for advice on how to wean off and for workup of her symptoms. Has upper body and hip stiffness returning. Has LBP. Has fallen down stairs several times due to legs being stiff and not able to do what her brain tells them to. Grover tried going off Prednisone which flared the stiffness. Joints that bother the pt currently: Neck: chronicly stiff. Low back: LBP for years Shoulders: achey and stiff; into upper arms. Elbows: Sore Wrists: Cracking, stiff Fingers: Has had Raynauds for years- amlodipine helps; gets scaly, itchy lesions at the fingertips coinciding with cool/cold weather. Hips: Stiff all the time on the sides. Knees: achey Ankles: Not bad; stiff Feet/ toes: turn dark with the cold; circulation is not good. Past dx of gout when her great toe swelled with pain. Joints swelling- Fingers; mild in knees AM stiffness- Stiff all day; slightly better after 30 min. 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 Has stopped walking, gardening- due to the leg pains and stiffness. 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 Patient Active Problem List Diagnosis ??? ADHD, predominantly inattentive type ??? Chronic abdominal pain ??? Constipation ??? PMR (polymyalgia rheumatica) ([facility]) ??? Raynaud phenomenon ??? Frequent UTI ??? Factor V Leiden ([facility]) ??? Moderate episode of recurrent major depressive disorder ([facility]) Past Medical History: Diagnosis Date ??? Chronic abdominal pain ??? Factor V Leiden ([facility]) 10/29/2017 ??? Frequent UTI 10/29/2017 ??? PMR (polymyalgia rheumatica) ([facility]) ??? Post herpetic neuralgia ??? Raynaud phenomenon 10/29/2017 Past Surgical History: Procedure Laterality Date ??? INTERSTIM to low back for bladder incontinence; coming out next month Family History Problem Relation Age of Onset ??? Lung Cancer Father ??? *Other(comment) Father raynauds ??? Arthritis-Osteo Father ??? Breast Cancer Maternal Grandmother ??? Asthma Maternal Grandmother ??? Dementia Paternal Grandfather ??? High Blood Pressure Paternal Grandfather ??? Clotting Disorder Mother Factor V leiden ??? Arthritis-Osteo Mother ??? Ulcerative Colitis Brother Social Social History Tobacco Use ??? Smoking status: Never Smoker ??? Smokeless tobacco: Never Used Substance Use Topics ??? Alcohol use: Yes Comment: 1 wine with dinner ??? Drug use: No Outpatient Medications Marked as Taking for the 01/24/18 encounter (Office Visit) with Napoleon Carmona Chi, MD Medication Sig Dispense Refill ??? amLODIPine (NORVASC) 5 mg tablet Take 1 Tab by mouth daily. 30 Tab 2 ??? cyanocobalamin (VITAMIN B-12) 500 mcg tablet Take 500 mcg by mouth daily. ??? dextroamphetamine-amphetamine (ADDERALL) 15 mg tablet Take 1 Tab by mouth daily. Daily Max: 15 mg 28 Tab 0 ??? ergocalciferol, vitamin D2, (VITAMIN D ORAL) Take by mouth. ??? hydrOXYzine (ATARAX) 25 mg tablet Take 1 Tab by mouth every evening. 90 Tab 3 ??? LAXATIVE, BISACODYL, ORAL Take by mouth. ??? magnesium oxide (MAG-OX) 400 mg (241.3 mg magnesium) tablet Take 400 mg by mouth daily. ??? oxybutynin (DITROPAN-XL) 5 mg CR tablet Take 1 Tab by mouth daily. 90 Tab 3 ??? predniSONE (DELTASONE) 1 mg tablet Take 4 Tabs by mouth daily. Total dose 9 mg(+5mg tab) (Patient taking differently: Take 5.5 mg by mouth daily. Total dose 9 mg(+5mg tab)) 120 Tab 0 ??? UNABLE TO FIND Med Name: Baby Reema 81 MG No Known Allergies Review of Systems Constitutional: Positive for fever (with the renal stone), malaise/fatigue and weight loss (up and down: which is normal for her.). Negative for chills and diaphoresis. HENT: No oral ulcers No dry mouth Eyes: Positive for pain (left - past 6 months). + dry eyes Respiratory: Negative for cough, shortness of breath and wheezing. Cardiovascular: Negative for chest pain and palpitations. + raynauds - occurs in Fall thru the winter in the fingers and toes. Amlodipine helps. 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 Gastrointestinal: Positive for abdominal pain (has f/u with urology), constipation and nausea. Negative for blood in stool, diarrhea and heartburn. Genitourinary: Positive for frequency and hematuria. Negative for dysuria. Renal stones- had one removed in November. Has had 4 deliveries; 3 lived. Musculoskeletal: Positive for back pain, joint pain, myalgias and neck pain. Skin: Positive for itching and rash (itchy on fingers. hives on fingers). No sun sensitive rashes no psoriasis Dry skin on shins. Neurological: Positive for tingling (hands, feet ) and focal weakness. Negative for seizures and headaches. Endo/Heme/Allergies: Does not bruise/bleed easily. Has Factor V leiden: last year; Mother had DVT, PEs. 2003 lost 30 lbs. Psychiatric/Behavioral: Positive for depression. The patient has insomnia. The patient is not nervous/anxious. All other systems reviewed and are negative. - See HPI Objective: BP 133/71 (BP Cuff Location: Left arm) Pulse 77 Ht 160.2 cm (63.07) Wt 51.8 kg (114 lb 3.2 oz) BMI 20.18 kg/m?? Physical Exam Constitutional: She is oriented to person, place, and time. No distress. Slender, pleasant middle-aged female HENT: Nose: Nose normal. Mouth/Throat: Mucous membranes are moist. Oropharynx is clear. Eyes: Conjunctivae and EOM are normal. Pupils are equal, round, and reactive to light. Neck: Thyromegaly (R tiny nodule?) present. Cardiovascular: Normal rate, regular rhythm and normal heart sounds. No murmur heard. Pulmonary/Chest: Effort normal. No respiratory distress. Abdominal: Soft. There is no hepatosplenomegaly. There is no tenderness. Musculoskeletal: a complete musculoskeletal exam of the upper and lower extremities was performed and was normal except for findings shown on the homonculus: Neurological: She is alert and oriented to person, place, and time. No cranial nerve deficit. Skin: Skin is warm. No rash noted. Multiple nevi; cool and slightly cyanotic toes. Cool fingertips. No sclerodactyly or telangiectasias. Psychiatric: She has a normal mood and affect. Her behavior is normal. Vitals reviewed. 12/29/17: UA- WBC 0-3, RBC 0-2 10/29/17: CRP <7 CMP normal TSH 1.9 06/08/11: RF negative 09/26/03: INEZ negative Assessment: 1. Joint stiffness of multiple sites 2. Primary osteoarthritis involving multiple joints COMPREHENSIVE METABOLIC PANEL (CMP) CERVICAL SPINE 2-3 VIEWS L SPINE 2-3 VIEWS SHOULDER 2 OR MORE VIEWS KNEES STANDING BILATERAL AP C REACTIVE PROTEIN meloxicam (MOBIC) 15 mg tablet CANCELED: HIP BILATERAL 3-4 VIEWS, OPTIONAL PELVIS 3. Raynaud's disease without gangrene COMPREHENSIVE METABOLIC PANEL (CMP) COMPLETE BLOOD COUNT AND DIFFERENTIAL ARTHRITIS 1 SM (PABON) ANTIBODY ANTI DNA (DOUBLE STRAND) SSA ANTIBODIES BY HEMALATAH SSB ANTIBODIES BY HEMALATHA SPECIFICATION CONSULTANT ANTIBODIES BY HEMALATHA SCL 70 ANTIBODY, IGG, SERUM C REACTIVE PROTEIN 4. History of gastroesophageal reflux (GERD) omeprazole (PRILOSEC) 20 mg capsule 5. Current chronic use of systemic steroids DXA DUAL XRAY ABSORPTIOMETRY FOR BONE DENSITY Plan: Joint stiffness- Past diagnosis of PMR in this relatively young patient 3 years ago- unclear whether she ever had elevated acute phase reactants. Difficult to confirm this diagnosis. No evidence for inflammation on exam today-we will get new baseline C-reactive protein. Suspect much of her joint stiffness is due to osteoarthritis- we will x-ray neck, low back, shoulders, knees and hips- all of which bother her. Unfortunately prednisone treats everything and so OA would feel better as well. Continue slow taper prednisone 0.5 mg every 3 weeks; she will try meloxicam as needed for joint painand stiffness as she tapers prednisone. Raynaud's- Less severe since amlodipine was started. She has no clinical features for underlying autoimmune disease such as scleroderma. Nonetheless we will recheck serologies. Adderall can contribute to Raynaud's; and she has a genetic predisposition, since her father also had Raynauds. Advise she keep her core body temperature up, continue amlodipine, and consider decreasing or tapering off Adderall. History of GERD- We will prescribe omeprazole to take along with the meloxicam. Chronic corticosteroid use- Patient should get an updated DEXA scan to screen for bone density loss while on chronic corticosteroids- order placed. In the meantime encouraged regular low impact weightbearing exercise, calcium, and Vit D. Barriers to learning identified: No Patient verbalizes understanding and agrees with plan Yes Return for 5 to 6 months.. Copy of this note will be sent to PCP: Meer Gonzales (Portions of this document may have been prepared with speech recognition software or keyboard data analyst techniques. Minor irregularities or keyboarding misprints may be present.) Napoleon Carmona MD documented in this encounter Plan of Treatment Not on filedocumented as of this encounter Procedures Procedure Name Priority Date/Time Associated Diagnosis Comme nts HIP BILATERAL 5 OR Routine 01/24/2018 11:29 Resul ts for this MORE VIEWS, EST procedure are i n OPTIONAL PELVIS the results section. KNEES STANDING Routine 01/24/2018 11:29 Primary osteoarthritis Results for this BILATERAL AP EST involving multiple procedure are in joints the results section. SHOULDER 2 OR MORE Routine 01/24/2018 11:28 Primary osteoarthr itis Results for this VIEWS EST involving multiple procedure are in joints the results section. L SPINE 2-3 VIEWS Routine 01/24/2018 11:28 Primary osteoarthri tis Results for this EST involving multiple procedure are in joints the results section. CERVICAL SPINE 2-3 Routine 01/24/2018 11:27 Primary osteoarthr itis Results for this VIEWS EST involving multiple procedure are in joints the results section. documented in this encounter Results DXA DUAL XRAY ABSORPTIOMETRY FOR BONE DENSITY (06/24/2018 9:22 EDT) Pathologist Sig nature DEXA Bone Density [facility] DEXA Bone Density, External [facility] C ENTER Anatomical Region Laterality Modality Other Specimen Narrative This result has an attachment that is no t available. Performing Organization Address [facility] C REACTIVE PROTEIN (01/24/2018 11:47 EST) Pathologist Sig nature C Reactive Protein <7.0 <10.0 mg/L [facility] LABOR[facility]ORY SERVICES Specimen Blood specimen (specimen) - Blood Performing Organization Address [facility] LABORATORY [address] [place] [address] SERVICES SCL 70 ANTIBODY, IGG, SERUM (01/24/2018 11:47 EST) Scleroderma Ab, SCL <0.2Comment: <1.0 [facility] 70 Ab Performed by: (Negative) U LABORATORY [facility]: SERVICES [facility] [address], [place] [address] Specimen Blood specimen (specimen) - Blood Performing Organization Address [facility] LABORATORY [address] [place] [address] SERVICES SPECIFICATION CONSULTANT ANTIBODIES BY HEMALATHA (01/24/2018 11:47 EST) Pathologist [facility] nature SPECIFICATION CONSULTANT Antibody 1.[address] [facility] Comment: LABORATORY SERVICES Negative: <20 Units Weak Positive: 20 - 39 Units Moderate Positive: 40 - 80 Units Strong Positive: >80 Units Results were obtained with the [employer] QUANT[employer] Lite SPECIFICATION CONSULTANT E HERRERA. SPECIFICATION CONSULTANT Values obtained with different manufacturers' assay methods m ay not be used interchangeably. The magnitude of the re ported IgG levels cannot be correlated to an endpoint titer. A positive result in the QUANTA Lite SPECIFICATION CONSULTANT HEMALATHA indicat es the presence of antibodies reactive with the SPECIFICATION CONSULTANT/Sm complex but cannot distinguish between anti-Sm and anti-SPECIFICATION CONSULTANT activity. Specimen Blood specimen (specimen) - Blood Performing Organization Address [facility] LABORATORY [address] [place] [address] SERVICES SSB ANTIBODIES BY HEMALATHA (01/24/2018 11:47 EST) Pathologist Sig nature SSB Antibody 2.[address] [facility] Comment: LABORATORY SERVICES Negative: <20 Units Weak Positive: 20 - 39 Units Moderate Positive: 40 - 80 Units Strong Positive: >80 Units Results were obtained with the [employer] QUANTA SS-B HEMALATHA . SS-B values obtained with different manufacturers' assay methods may not be used interchangeably. The magnitude of the reported IgG levels cannot be cor related to an endpoint titer. Specimen Blood specimen (specimen) - Blood Performing Organization Address [facility] LABORATORY [address] [place] [address] SERVICES SSA ANTIBODIES BY HEMALATHA (01/24/2018 11:47 EST) Pathologist Sig nature SSA Antibody 3.[address] [facility] Comment: LABORATORY SERVICES Negative: <20 Units Weak Positive: 20 - 39 Units Moderate Positive: 40 - 80 Units Strong Positive: >80 Units Results were obtained with the [employer] QUANT[employer] Lite SS-A HEMALATHA. SS-A values obtained with different manufacturers' assay methods m ay not be used interchangeably. The magnitude of the re ported IgG levels cannot be correlated to an endpoint titer. Specimen Blood specimen (specimen) - Blood Performing Organization Address [facility] LABORATORY [address] [place] [address] SERVICES ANTI DNA (DOUBLE STRAND) (01/24/2018 11:47 EST) Pathologist Sig nature Anti DNA (DS) <12.3Comment: <30 IU/mL [facility] Results were LABORATORY SERVICES obtained with the [employer] QU[employer] Lite dsDNA SC HEMALATHA assay. Specimen Blood specimen (specimen) - Blood Performing Organization Address [facility] LABORATORY [address] [place] [address] SERVICES SM (PABON) ANTIBODY (01/24/2018 11:47 EST) Sm (Pabon) 2.[address] [facility] Antibody Comment: LABORATORY SERVICES Negative: <20 Units Weak Positive: 20 - 39 Units Moderate Positive: 40 - 80 Units Strong Positive: >80 Units Results were obtained with the [employer] QU[employer] Lite Sm HEMALATHA. Sm values obtained with different manufacturers' assay methods may not be used interchangeably. The magnitude of the reported IgG levels cannot be cor related to an endpoint titer. Specimen Blood specimen (specimen) - Blood Performing Organization Address [facility] LABORATORY [address] [place] [address] SERVICES ARTHRITIS 1 (01/24/2018 11:47 EST) Rheumatoid Factor 11 <12.5 IU/mL [facility] LABORATORY SERVICES INEZ Interpretation Negative Negative [facility] Comment: LABORATORY No titer performed, INEZ screen is negative. SERVICES Results were obtained with the [employer] HEp-2 A NA kit by indirect immunofluorescence. Specimen Blood specimen (specimen) - Blood Performing Organization Address City/State/ZIP Code Phon e Number [facility]ORY [address] [place] [address] SERVICES (ABNORMAL) COMPLETE BLOOD COUNT AND DIFFERENTIAL (01/24/2018 11:47 EST) Pathologist Sig nature WBC 7.32 4.0 - 12.4 [facility] LABORATORY SERVICES RBC 4.33 3.86 - 5.04 [facility] LABORATORY SERVICES Hemoglobin 13.7 11.6 - 15.2 [facility] gm/dl LABORATORY SERVICES HCT 39.5 34.9 - 44.4 % [facility] SERVICES MCV 91 81 - [address] [facility] SERVICES MCH 31.6 26.7 - 33.[address] [facility]ORY SERVICES MCHC 34.7 32.1 - 35.9 [facility] gm/dl LABORATORY SERVICES RDW-CV 12.6 <14.7 % [facility] LAB[facility]ORY SERVICES RDW-SD 42.2 <50.[address] [facility] LABORATORY SERVICES PLT 391 (H) 141 - 377 K/[facility] LABORATORY SERVICES MPV 9.1 (L) 9.5 - 12.[address] [facility] SERVICES Neutrophils 70.0 % [facility] SERVICES Lymphocytes 21.2 % [facility] SERVICES Monocytes 6.6 % [facility] SERVICES Eosinophils 1.2 % [facility] Basophils 0.7 % [facility] Immature Grans 0.3 % [facility] ABS Neutrophils 5.13 2.20 - 8.85 [facility] LABORATORY SERVICES ABS Lymphs 1.55 1.09 - 3.30 [facility] LABORATORY SERVICES ABS Monocytes 0.48 0.1 - 0.8 K/[facility] LABORATORY SERVICES ABS Eosinophils 0.09 0.03 - 0.61 [facility] K/cm LABORATORY SERVICES ABS Basophils 0.05 0.01 - 0.11 [facility] K/[facility] LABORATORY SERVICES ABS Immature Grans 0.02 0 - 0.06 K/[facility] LABORATORY SERVICES Type of Diff: Automated [facility] SERVICES Specimen Blood specimen (specimen) - Blood Performing Organization Address [facility] Phon e Number [facility] [address] [place] [address] SERVICES COMPREHENSIVE METABOLIC PANEL (CMP) (01/24/2018 11:47 EST) Potassium 3.9 3.5 - 5.0 [facility] mEq/L [facility] Sodium 137 136 - 145 [facility] mEq/L [facility] Chloride 100 96 - 110 [facility] mEq/L [facility] CO2 30 22 - 32 mEq/L [facility] SERVICES Total Alkaline 66 38 - 126 U/L [facility] Phosphatase [facility] Bilirubin, Total <0.5 <1.4 mg/dl [facility] AST 24 15 - 46 U/L [facility] ALT 28 <53 U/L [facility] Albumin 4.4 3.4 - 4.9 [facility] g/dl [facility] Total Protein 6.9 6.3 - 8.2 [facility] MEDICAL g/dl [facility] Creatinine 0.68 0.52 - 1.04 [facility] MEDICAL mg/dl [facility] GFR, Calculated 102 >60 [facility] Comment: ml/min/1.73m2 [facility] eGFR calculated using CKD-EPI equation for SERVICES non Americans. Multiply eGFR by 1.16 for Americans. BUN 20 10 - 26 mg/dl [facility] Calcium 9.8 8.5 - 10.5 [facility]ICAL mg/dl [facility] Calculated Calcium 9.5 8.5 - 10.5 [facility]ICAL mg/dl [facility] Glucose, Serum 83 70 - 100 [facility] mg/dl [facility] Fasting? No [facility] Specimen Blood specimen (specimen) - Blood Performing Organization Address City/[facility]/ZIP Code Phon e Number [facility] [address] [place] [address] SERVICES HIP BILATERAL 5 OR MORE VIEWS, OPTIONAL PELVIS (01/24/2018 11:29 EST) Anatomical Region Laterality Modality Other Specimen Narrative [facility] MPUS - 01/24/2018 15:38 EST HIP BILATERAL 5 OR MORE VIEWS, OPTIONAL PELVIS ??01/24/2018 11:29 AM Signs and Symptoms/Comments: ?? M15.0-Primary generalized (osteo)arthrit is-ICD-10; chronic pain; assess for OA Comparison: CT 03/23/2016 Findings: AP pelvis, and AP and frog-leg lateral v iew of the right and left hips were obtained. Nerve stimulator device is seen overlyin g the right hemipelvis. Mild sclerosis and narrowing of sacroiliac rick ints is seen. There is mild sclerosis of the acetabular rim bilatera lly without significant narrowing. The femoral heads articulate appropriately with the acetabulum and there is no fracture or m alalignment. Mild degenerative changes also seen at the pu bic symphysis. No significant soft tissue abnormality. Impression: Minimal degenerative changes of the hips . I have personally reviewed the images an d the above interpretation and agree with the findings. Procedure Note Uday Segovia MD - 01/24/2018 HIP BILATERAL 5 OR MORE VIEWS, OPTIONAL PELVIS 01/24/2018 11:29 AM Signs and Symptoms/Comments: M15.0-Primary generalized (osteo)arthrit is-ICD-10; chronic pain; assess for OA Comparison: CT 03/23/2016 Findings: AP pelvis, and AP and frog-leg lateral v iew of the right and left hips were obtained. Nerve stimulator device is seen overlyin g the right hemipelvis. Mild sclerosis and narrowing of sacroiliac rick ints is seen. There is mild sclerosis of the acetabular rim bilatera lly without significant narrowing. The femoral heads articulate appropriately with the acetabulum and there is no fracture or m alalignment. Mild degenerative changes also seen at the pu bic symphysis. No significant soft tissue abnormality. Impression: Minimal degenerative changes of the hips . I have personally reviewed the images an d the above interpretation and agree with the findings. Performing Organization Address City/State/ZIP Code Phon e Number [facility] KNEES STANDING BILATERAL AP (01/24/2018 11:29 EST) Anatomical Region Laterality Modality Other Specimen Narrative [facility] MPUS - 01/24/2018 15:36 EST KNEES STANDING BILATERAL AP ??01/24/2018 11:29 AM Signs and Symptoms/Comments: ?? M15.0-Primary generalized (osteo)arthrit is-ICD-10; chronic pain; assess for OA Comparison: CT 03/23/2016 Findings: AP weightbearing views of the knees were obtained. No fracture or malalignment is seen. Tana nt spaces are maintained and articular contours are smooth. No signif icant soft tissue abnormality. Impression: No significant abnormality. I have personally reviewed the images an d the above interpretation and agree with the findings. Procedure Note Uday Segovia MD - 01/24/2018 KNEES STANDING BILATERAL AP 01/24/2018 11 :29 AM Signs and Symptoms/Comments: M15.0-Primary generalized (osteo)arthrit is-ICD-10; chronic pain; assess for OA Comparison: CT 03/23/2016 Findings: AP weightbearing views of the knees were obtained. No fracture or malalignment is seen. Tana nt spaces are maintained and articular contours are smooth. No signif icant soft tissue abnormality. Impression: No significant abnormality. I have personally reviewed the images an d the above interpretation and agree with the findings. Performing Organization Address City/State/ZIP Code Phon e Number [facility] SHOULDER 2 OR MORE VIEWS (01/24/2018 11:28 EST) Anatomical Region Laterality Modality Other Specimen Narrative [facility] MPUS - 01/24/2018 15:38 EST SHOULDER 2 OR MORE VIEW, SHOULDER 2 OR MORE VIEW ??01/24/2018 11:28 AM Signs and Symptoms/Comments: ?? M15.0-Primary generalized (osteo)arthrit is-ICD-10; chronic pain; assess for OA Comparison: CT 03/23/2016 Findings: AP external, internal, and axillary view s of the left and right shoulder were obtained. No fracture or malalignment is seen and the humeral head sits appropriately on the glenoid. Moderate a cromioclavicular joint space narrowing and osteophytosis is seen bila terally. No soft tissue abnormality is identified. Impression: Moderate degenerative changes of the acr omioclavicular joints. Otherwise no significant abnormality. I have personally reviewed the images an d the above interpretation and agree with the findings. Procedure Note Uday Segovia MD - 01/24/2018 SHOULDER 2 OR MORE VIEW, SHOULDER 2 OR M ORE VIEW 01/24/2018 11:28 AM Signs and Symptoms/Comments: M15.0-Primary generalized (osteo)arthrit is-ICD-10; chronic pain; assess for OA Comparison: CT 03/23/2016 Findings: AP external, internal, and axillary view s of the left and right shoulder were obtained. No fracture or malalignment is seen and the humeral head sits appropriately on the glenoid. Moderate a cromioclavicular joint space narrowing and osteophytosis is seen bila terally. No soft tissue abnormality is identified. Impression: Moderate degenerative changes of the acr omioclavicular joints. Otherwise no significant abnormality. I have personally reviewed the images an d the above interpretation and agree with the findings. Performing Organization Address City/State/ZIP Code Phon e Number [facility] L SPINE 2-3 VIEWS (01/24/2018 11:28 EST) Anatomical Region Laterality Modality Other Specimen Narrative [facility] MPUS - 01/24/2018 15:37 EST L SPINE 2-3 VIEWS ??01/24/2018 11:28 AM Signs and Symptoms/Comments: ?? M15.0-Primary generalized (osteo)arthrit is-ICD-10; chronic pain; assess for OA Comparison: CT 03/23/2016 Findings: AP and lateral views of the lumbosacral spine were obtained. A nerve stimulator is seen overlying the right sacrum. There is grade 1 retrolisthesis of L5 on S1. Alignment is otherwise anatomic. Vertebral body and interverteb ral disc space heights are maintained. Posterior facet hypertrophy is seen at the level of L4-L5 and L5-S1. No significant soft tis terri abnormality. Impression: Minimal degenerative changes of the lumb ar spine at the level of L4-L5 and L5-S1. I have personally reviewed the images an d the above interpretation and agree with the findings. Procedure Note Uday Segovia MD - 01/24/2018 L SPINE 2-3 VIEWS 01/24/2018 11:28 AM Signs and Symptoms/Comments: M15.0-Primary generalized (osteo)arthrit is-ICD-10; chronic pain; assess for OA Comparison: CT 03/23/2016 Findings: AP and lateral views of the lumbosacral spine were obtained. A nerve stimulator is seen overlying the right sacrum. There is grade 1 retrolisthesis of L5 on S1. Alignment is otherwise anatomic. Vertebral body and interverteb ral disc space heights are maintained. Posterior facet hypertrophy is seen at the level of L4-L5 and L5-S1. No significant soft tis terri abnormality. Impression: Minimal degenerative changes of the lumb ar spine at the level of L4-L5 and L5-S1. I have personally reviewed the images an d the above interpretation and agree with the findings. Performing Organization Address City/State/ZIP Code Phon e Number [facility] CERVICAL SPINE 2-3 VIEWS (01/24/2018 11:27 EST) Anatomical Region Laterality Modality Other Specimen Narrative [facility] MPUS - 01/25/2018 11:46 EST Addendum Begins Addendum technique: AP, lateral, and odo ntoid views of the cervical spine were obtained. Addendum Ends CERVICAL SPINE 2-3 VIEWS ??01/24/2018 11: 27 AM Signs and Symptoms/Comments: ?? M15.0-Primary generalized (osteo)arthrit is-ICD-10; chronic pain; assess for OA Comparison: None Findings: There is straightening of normal cervica l lordosis. Grade 1 anterolisthesis of C4 on C5. Alignment i s otherwise anatomic. Vertebral body heights are maintained. I ntervertebral disc space height loss is present at the level of C 5-C6, and C6-C7. No significant soft tissue abnormality is s een. The atlantodental interval is normal in appearance, howeve r, the dens is slightly obscured by the dentition. Impression: Mild degenerative changes, worst at the level of C5-C6 with straightening of normal cervical lordosi s. I have personally reviewed the images an d the above interpretation and agree with the findings. I have personally reviewed the images an d the above interpretation and agree with the findings. Procedure Note Uday Segovia MD - 03/07/2018 Addendum Begins Addendum technique: AP, lateral, and odo ntoid views of the cervical spine were obtained. Addendum Ends CERVICAL SPINE 2-3 VIEWS 01/24/2018 11:27 AM Signs and Symptoms/Comments: M15.0-Primary generalized (osteo)arthrit is-ICD-10; chronic pain; assess for OA Comparison: None Findings: There is straightening of normal cervica l lordosis. Grade 1 anterolisthesis of C4 on C5. Alignment i s otherwise anatomic. Vertebral body heights are maintained. I ntervertebral disc space height loss is present at the level of C 5-C6, and C6-C7. No significant soft tissue abnormality is s een. The atlantodental interval is normal in appearance, howeve r, the dens is slightly obscured by the dentition. Impression: Mild degenerative changes, worst at the level of C5-C6 with straightening of normal cervical lordosi s. I have personally reviewed the images an d the above interpretation and agree with the findings. I have personally reviewed the images an d the above interpretation and agree with the findings. Performing Organization Address City/State/ZIP Code Phon e Number [facility] documented in this encounter Visit Diagnoses Diagnosis Joint stiffness of multiple sites - Prim chris Stiffness of joints, not elsewhere class ified, multiple sites Primary osteoarthritis involving multipl e joints Raynaud's disease without gangrene History of gastroesophageal reflux (GERD ) Personal history of other diseases of di gestive system Current chronic use of systemic steroids documented in this encounter Discontinued Medications Medication Sig Discontinue Reason Start Date End Date clobetasol (TEMOVATE) Apply topically 2 1 03/27/2017 0.05 % ointment times daily. polyethylene glycol Instructions mailed 10/29/2017 1 03/27/2017 (GOLYTELY;NULYTELY) once procedure [id number] scheduled. Questions: gram suspension [facility] Gastroenterology: [phone] or GI Doctor's Office. documented as of this encounter Care Teams Rn Tele Relationship Specialty Start Date End Date Mere Gonzales MD PCP - General 10/05/17 07/30/20 [address] [place] [address] documented as of this encounter
--- OUTSIDE RECORDS SUMMARY | 2021-11-28 01:53 | XMS_ITS | Encounter Summary ---
:1965 Author Organization [facility] Address [address] [place] [address] Care Team Providers Name Role Phone Mere Gonzales MD Primary Care Provider Reason for Visit Reason Onset Date Comments Other 02/04/2018 Encounter Details Date Type Department Care Team Description 02/04/2018 Telephone [facility] Pelvic Fidelina Engle RN Other Medicine and Reconstructive Surgery - [facility] [address] [place] [address] Social History Tobacco Use Types [...] encounter Miscellaneous Notes Telephone Encounter - Fidelina Engle, RN - 02/04/2018 1310 EST Pt calling because she noticed blood in her urine on Wednesday evening into Wednesday and just about an hour and half ago. She had her Interstim removed on 01/31/2018. She also has this ongoing pain thatis not new from the Interstim removal (Dr Hogan aware of this) and is meeting with Dr Rajput on Wednesday regarding this. She states her pelvis/vagina are feeling raw. She does not feel that this is related to her kidneys or UTI related. She also started Xarelto on Wednesday for Factor V Leiden. I spoke with Dr Hogan who would like a UA and CX if indicated order placed and for pt to drop of urine specimen. Dr Hogan believes that with the general inflammation and start of Xarelto it could have a factor in the gross hematuria. Risks are low and chances are nothing serious is happening. Pt is awareof this. documented in this encounter Plan of Treatment Not on filedocumented as of this encounter Results URINE CULTURE IF UA POSITIVE - NON POCT URINALYSIS ONLY (02/07/2018 9:52 EST) Culture if Culture not [facility] Indicated indicated by LABORATORY SERVICES urinalysis results. Specimen Urine (substance) - Other Performing Organization Address City/State/ZIP Code Phon e Number [facility] [address] [place] [address] SERVICES (ABNORMAL) UA, CHEMICAL AND SEDIMENT ANALYSIS (DIPSTICK AND MICROSCOPIC) (02/07/2018 9:52 EST) Color, UA Yellow [facility] Clarity, UA Hazy [facility] Glucose, UA Neg Neg [facility] Bilirubin, UA Neg Neg [facility] Ketones, UA Neg [facility] SERVICES Refractometer 1.021 1.001 - 1.035 [facility] SG,Urine [facility] Blood, UA 2+ (A) [facility]ORAT[facility] SERVICES pH, UA 8.0 4.6 - 8.0 [facility] Protein, UA Trace (A) [facility] SERVICES Urobilinogen, UA Normal Normal [facility] E.U./dl [facility] Nitrite, UA Neg [facility] SERVICES Leuk Esterase Neg [facility] SERVICES UA Method Used [facility] Comment: [facility]ENTER [facility] Testing performed using SERVICES XDx [id number]. Urine RBC Count >50 (A) 0 to 2 /HPF [facility] Automated [facility] SERVICES Urine WBC Count 0 to 3 0 to 3 /HPF [facility] Automated [facility] Urine Squamous None seen None seen [facility] Epithelial Cell /LPF [facility] Count, Automated SERVICES Urine Hyaline Casts, < or = 10 < or = 10 [facility] Automated /LPF [facility] SERVICES Urine Bacteria None seen None seen [facility] Count, Automated [facility] UA Comment Sediment results [facility] Comment: [facility] are unreliable on SERVICES urines unrefrig >2hrs or refrig >8hrs. Specimen Urine (substance) - Urine Performing Organization Address City/State/ZIP Code Phon e Number [facility] [address] [place] [address] SERVICES documented in this encounter Visit Diagnoses Diagnosis Gross hematuria - Primary documented in this encounter Care Teams Herb Grower Relationship Specialty Start Date End Date Mere Gonzales MD PCP - General 10/05/17 07/30/[address] [place] [phone] documented as of this encounter
--- OUTSIDE RECORDS SUMMARY | 2021-11-28 01:53 | XMS_ITS | Encounter Summary ---
:1965 Author Organization [facility] Address [address] [place] [address] Care Team Providers Name Role Phone Hina Gonzales MD Primary Care Provider Reason for Referral Prior Authorization (Routine/Next Available) - Authorization Not Required Specialty Diagnoses / Procedures Referred By Contact Refer red To Contact Diagnoses Factor V Leiden ([facility] ([facility]) Danitza Ramey, JOSEFA [address] [facility] [address] [place] [phone] Referral ID Status Reason Start Expiration Visits Visits Date Date Requested Authorized [id number] Authorization Not Other 01/27/2018 1 1 Required Question Answer Medication to be Prior Authorized: Xarelto [facility] Precertification Request f or Medications 01/27/2018 URGENT: No Medication Administration: PO Patient Name: Heike Salguero Patient : [id number] Ordering MD: Karoline Nurse: hina Phone: [phone] Is this a dosage change, renewal or a ne w medication? New Med Medication Start Date & Number of Cycles : 02/01 PT BSA: There is no height or weight on file to calculate BSA. What is the reason for taking this medic ation? vte ppx Is this an on label usage of this medica tion? Yes What is the patient's current drug regim en? na Similar drugs patient has been on and fa iled? na Please Prior Auth Medications Listed bel ow: Xarelto 10mg po daily How many days will patient be on the abo ve regimen in a month? 10 Qty per 30 days: 10 Number of Refills: 0 Local Pharmacy: Encounter Details Date Type Department Care Team Description 01/27/2018 Orders Only [facility] Hina tAkins RN Factor V Leiden Hematology & Oncology [address] [facility] ([facility]) ([facility] [place] [address] Dx) [address] [place] [address] Social History Tobacco Use Types Packs/Day Years [...] Sig Dispensed Refills Start Date End Date rivaroxaban (XARELTO) 10 Take 1 Tab by mouth 10 Tab 0 02/07/2018 mg tablet daily. tabletIndications: Factor V Leiden ([facility]) ([facility]) documented in this encounter Plan of Treatment Scheduled Referrals Name Type Priority Associated Order Schedule Diagnoses AMB MEDICATION PRIOR Outpatient Referral Routine Factor V Leid en Ordered: AUTHORIZATION ([facility]) 01/27/2018 documented as of this encounter Visit Diagnoses Diagnosis Factor V Leiden ([facility]) ([facility]) - Primar y Primary hypercoagulable state documented in this encounter Care Teams Make Up Girl Relationship Specialty Start Date End Date Hina Gonzales MD PCP - General 10/05/17 07/30/20 [address] [place] [phone] documented as of this encounter
--- OUTSIDE RECORDS SUMMARY | 2021-11-28 01:53 | XMS_ITS | Encounter Summary ---
:1965 Author Organization [facility] Address [address] [place] [address] Care Team Providers Name Role Phone Mere Gonzales MD Primary Care Provider Reason for Visit Reason Comments Follow-up Injection Encounter Details Date Type Department Care Team Description 02/17/2018 Office Visit [facility] CLERK GUIDE Gilda Rajput (Primary Pelvic Medicine and MD Johanna Dx) Reconstructive Surgery - [address] [place] [address] Medical [place] [address] Medical Office [address] [place] [address], [place] [address] [address] [place] [phone] Social History Tobacco Use Types Packs/Day Years [...] as of this encounter Patient Instructions Patient InstructionsMaGilda rolon MD - 02/17/2018 9:00 EST Take 300 mg at bedtime . After one week go to 600 mg at bedtime. After another week take 300 mg in the morning and 600 mg at night. Call me with an update after being on that dose for 2-3 weeks. documented in this encounter Ordered Prescriptions Prescription Sig Dispensed Refills Start Date End Date gabapentin (NEURONTIN) Take 300 mg at 100 Cap 2 8 04/26/2018 300 mg capsule bedtime. After one week go to 600 mg at bedtime. Then after another week go to 300 mg in the am and 600 mg at bedtime. documented in this encounter Progress Notes Gilda Rajput MD - 02/17/2018 0900 EST Pt presents for a one week f/u of a vulvar injection. Previous note reviewed. Her is with her today. She has a focal area of vulvar pain on the L that radiates to the L groin. I did an injection of sensorcaine and kenalog into the area of pain on the vulva lst week but pt noted no improvement at all from the injection. Not even initially from the anesthetic. Discussed repeating the injection would be reasonable for one more try. Vs a trial with gabapentin for vulvodynia. Pt would like to trythe gabapentin. Side effects reviewed. rec start with 300 mg at bedtime, then increase each week by 300 mg to 600 mg at bedtime and 300 mg in the morning. I asked her to call or RV once on the 900 mg a day for a couple of weeks. Discussed that we may need to continue to go up on the dosing as tolerated. F/u about a month. 15 minutes was spent with the pt today, all in counseling. documented in this encounter Plan of Treatment Not on filedocumented as of this encounter Visit Diagnoses Diagnosis Vulvodynia - Primary Vulvodynia, unspecified documented in this encounter Care Teams Cylinder Die Machine Operator Relationship Specialty Start Date End Date Mere Gonzales MD PCP - General 10/05/17 07/30/20 [address] [place] [phone] documented as of this encounter
--- OUTSIDE RECORDS SUMMARY | 2021-11-28 01:53 | XMS_ITS | Encounter Summary ---
:1965 Author Organization [facility] Address [address] [place] [address] Care Team Providers Name Role Phone Mere Gonzales MD Primary Care Provider Reason for Visit Reason Onset Date Comments Medication Management 05/05/2018 Encounter Details Date Type Department Care Team Description 05/05/2018 Telephone [facility] Adult Mere Gonzales Medication Management Primary Care - Tam Jimenez MD [address] [place] [address] [place], [place] [phone] Social History Tobacco Use Types Packs/Day [...] Telephone Encounter - Barbie Castillo RN - 05/06/2018 0859 EDT Left message to call back to discuss. elephone Encounter - Gilda Goodson - 05/05/2018 1523 EDT Patient called in regards to her prednisone prescription she received all the other prescriptions on04/25/18 except for the prednisone. 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 documented in this encounter Plan of Treatment Not on filedocumented as of this encounter Visit Diagnoses Not on filedocumented in this encounter Care Teams Management Trainer Relationship Specialty Start Date End Date Mere Gonzales MD PCP - General 10/05/17 07/30/[address] [place] [phone] documented as of this encounter
--- OUTSIDE RECORDS SUMMARY | 2021-11-28 01:53 | XMS_ITS | Encounter Summary ---
:1965 Author Organization [facility] Address [address] [place] [address] Care Team Providers Name Role Phone Mere Gonzales MD Primary Care Provider Reason for Referral Consult (Routine) - Specialty Report Received Specialty Diagnoses / Procedures Referred By Contact Refer red To Contact Diagnoses PMR (polymyalgia rheumatica) ([facility]) ([facility]) Mere Gonzales MD [address] [place] [address] Referral ID Status Reason Start Expiration Visits Visits Date Date Requested Authorized [id number] Specialty Specialty 06/20/2018 1 1 Report Services Received Required Question Answer Reason for Request: suspected diagnosis PMR Practice Site (External Referral Only): [facility] Reason for Visit Reason Comments Medication Management Encounter Details Date Type Department Care Team Description 06/20/2018 Office Visit [facility] Mere Gonzales PMR ( polymyalgia rheumatica) ([facility]) (Primary Dx); Adult Primary Care - MD Barbara Raynaud's phenomenon without gangrene; [place] [address] ADHD, predominantly inattentive type; [address] [place], Frequent UTI; [place] [address] [place] [phone] Moderate episode of recurrent major depr essive disorder ([facility]) [phone] Social History Tobacco Use Types Packs/Day Years [...] Sign Reading Time Taken Comments Blood Pressure 110/70 06/20/2018 1616 EDT Pulse 64 06/20/2018 1616 EDT Temperature 36.4 ??C (97.6 ??F) 06/20/2018 1616 EDT Respiratory Rate 14 06/20/2018 1616 EDT Oxygen Saturation - - Inhaled Oxygen Concentration - - Weight 51.7 kg (114 lb) 06/20/2018 1616 EDT Height - - Body Mass Index 20.19 02/07/2018 0938 EST documented in this encounter [...] End Date dextroamphetamine-amphetam Take 1 tablet by 28 tablet 0 08/10/2018 ine (ADDERALL) 15 mg mouth daily for 28 tablet days. Daily Max: 15 mg dextroamphetamine-amphetam Take 1 tablet by 28 tablet 0 09/14/2018 ine (ADDERALL) 15 mg mouth daily for 28 tablet days. Daily Max: 15 mg documented in this encounter Discharge Disposition Disposition Code Departure Means Destination Auto Discharge documented in this encounter Progress Notes Mere Gonzales MD - 06/20/2018 1615 EDT Heike Salguero, 53 y.o. female PRIMARY CARE PROVIDER: Mere Gonzales CHIEF COMPLAINT: Chief Complaint Patient presents with ??? Medication Management HISTORY OF PRESENT ILLNESS: Heike Salguero is a 53 y.o. female here for follow-up. She was tapering the prednisone and stopped it 2 weeks ago. Since that time she has worsening tightness through the shoulders, difficulty lifting her arms to do things overhead or shampoo her hair and worsening brain fog. She has no energy and feels very poorly. She has an apt in July with Dr. Carmona. Patient Active Problem List Diagnosis Date Noted ??? Primary hypercoagulable state ([facility]) 02/03/2018 -factor V Leiden homozygosity [...] Moderate episode of recurrent major depressive disorder ([facility]) 11/26/2017 ??? Chronic abdominal pain 10/29/2017 ??? Constipation 10/29/2017 ??? PMR (polymyalgia rheumatica) ([facility]) 10/29/2017 ??? Raynaud phenomenon 10/29/2017 Responded well to amlopidine ??? Frequent UTI 10/29/2017 ??? 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 Chronic abdominal pain ??? Factor V Leiden ([facility]) 10/29/2017 homozygote. FH VTE ??? Frequent UTI 10/29/2017 ??? Hypertension ??? PMR (polymyalgia rheumatica) ([facility]) ??? Post herpetic neuralgia ??? Primary hypercoagulable state ([facility]) 02/03/2018 -factor V Leiden homozygosity and [...] on phone: None Gets together: None Attends amish service: None Active member of club or organization: None Attends meetings of clubs or organizations: None Relationship status: None ??? Intimate partner violence: Fear of current or ex partner: None Emotionally abused: None Physically abused: None Forced sexual activity: None Other Topics Concern ??? 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 She drinks 1 glass of wine /week. Nonsmoker. MEDICATION REVIEW: Medications reviewed & updated. ALLERGIES: Allergies as of 06/20/2018 ??? (No Known Allergies) REVIEW OF SYSTEMS: A ten point ROS was performed and was negative except for pertinent positives in the HPI PHYSICAL EXAM: Vitals: BP 110/70 (BP Cuff Location: Left arm, Patient Position: Sitting, BP Cuff Sizes: Adult, regular) Pulse 64 Temp 36.4 ??C (97.6 ??F) (Tympanic) Resp 14 Wt 51.7 kg (114 lb) BMI 20.19 kg/m?? Gen - NAD Psych - alert and oriented x 3, normal mood and affect Neuro - CN II-XII grossly intact, normal gait ASSESSMENT / PLAN : 53 y.o. female here for follow-up. 1. Possible PMR/Chronic fatigue - diagnosis uncertain. Followed by rheumatology, now off prednisone with significant recurrence of symptoms - she would like to see [facility] instead so I have ordered that referral. ESR/CRP ordered and we may consider restarting prednisone depending on those results. 2. Raynauds - symptoms are much improved [...] restocked Basic labs/lipids - UTD Oct 2017 RTC 3 mo for ADD documented in this encounter Plan of Treatment Scheduled Referrals Name Type Priority Associated Order Schedule Diagnoses AMB CONS/FOLLOW UP Outpatient Referral Routine PMR (polymyalgi a Ordered: RHEUMATOLOGY rheumatica) 06/20/2018 ([facility]) documented as of this encounter Results SED. RATE:WESTERGREN (06/22/2018 9:32 EDT) Pathologist Sig nature Sed. Rate Westergren 1 0 - 30 mm/hr [facility] Specimen Blood specimen (specimen) - Blood Performing Organization Address City/State/ZIP Code Phon e Number [facility] [address] [place] [address] SERVICES C REACTIVE PROTEIN (06/22/2018 9:32 EDT) Pathologist Sig nature C Reactive Protein <7.0 <10.0 mg/L [facility] Specimen Blood specimen (specimen) - Blood Performing Organization Address City/State/ZIP Code Phon e Number [facility] [address] [place] [address] SERVICES documented in this encounter Visit Diagnoses Diagnosis PMR (polymyalgia rheumatica) ([facility]) ( [facility]) - Primary Polymyalgia rheumatica Raynaud's phenomenon without gangrene ADHD, predominantly inattentive type Attention deficit disorder without menti on of hyperactivity Frequent UTI Urinary tract infection, site not specif ied Moderate episode of recurrent major depr essive disorder ([facility]) documented in this encounter Discontinued Medications Medication Sig Discontinue Reason Start Date End Date UNABLE TO FIND Med Name: Gingko Therapy completed 05/24 dextroamphetamine-amphet Take 1 Tab by mouth Reorder 8 06/18/2018 amine (ADDERALL) 15 mg daily for 28 days. tablet Daily Max: 15 mg dextroamphetamine-amphet Take 1 Tab by mouth Reorder 8 06/18/2018 amine (ADDERALL) 15 mg daily for 28 days. tablet Daily Max: 15 mg documented as of this encounter Care Teams Quality Audit Representative Relationship Specialty Start Date End Date Mere Gonzales MD PCP - General 10/05/17 07/30/20 [address] [place] [phone] documented as of this encounter
--- OUTSIDE RECORDS SUMMARY | 2021-11-28 01:53 | XMS_ITS | Encounter Summary ---
:1965 Author Organization [facility] Address [address] [place] [address] Care Team Providers Name Role Phone Mere Gonzales MD Primary Care Provider Reason for Visit Reason Onset Date Comments Follow-up 01/11/2018 Encounter Details Date Type Department Care Team Description 01/11/2018 Telephone [facility] Pelvic Juliet Bruno, RN Follow-up Medicine and Reconstructive Surgery - Medical Office [facility] [address] [place] [address] Social History Tobacco Use Types [...] this encounter Miscellaneous Notes Telephone Encounter - Eileen Bruno, RN - 01/11/2018 1311 EST Pt calling to give us an update on her symptoms. Pt states when sitting still her discomfort is more focused on the left side of the labia/vagina. Rates it as 7/10 much of the time. Urinating is easier but not completely better. I suggested that we might want her to see Dr Rajput our vulvovag MD. I scheduled her and will discuss with Dr Rajput next week Dr Rajput aware of pts issues and is fine with seeing her. TC to pt. I left her a message confirmingher appt in January documented in this encounter Plan of Treatment Not on filedocumented as of this encounter Visit Diagnoses Not on filedocumented in this encounter Care Teams Psychiatric Social Worker Supervisor Relationship Specialty Start Date End Date Mere Gonzales MD PCP - General 10/05/17 07/30/20 [address] [place] [phone] documented as of this encounter
--- OUTSIDE RECORDS SUMMARY | 2021-11-28 01:53 | XMS_ITS | Encounter Summary ---
:1965 Author Organization [facility] Address [address] [place] [address] Care Team Providers Name Role Phone Mere Gonzales MD Primary Care Provider Reason for Visit Reason Onset Date Comments Results 02/11/2018 Encounter Details Date Type Department Care Team Description 02/11/2018 Telephone [facility] Urology - Adriana Wilson RN Results Medical Office Build [address], [address] [place] [address] Social History Tobacco Use Types [...] Sig Dispensed Refills Start Date End Date tamsulosin (FLOMAX) 0.4 mg Take 1 Cap by mouth 30 Cap 0 02/11/2018 02/21/2018 capsule daily for 30 days. documented in this encounter Miscellaneous Notes Telephone Encounter - Adriana Wilson, RN - 02/11/2018 8118 EST Tc to pt to advise, per , her CT scan revealed a 2mm stone in her left ureter, she should start flomax, push fluids and go to the ED if fever over 101.5, severe pain or unable to urinate. Pt verbalized understanding of plan. Flomax sent. documented in this encounter Plan of Treatment Not on filedocumented as of this encounter Visit Diagnoses Not on filedocumented in this encounter Care Teams Resaw Feeder Relationship Specialty Start Date End Date Mere Gonzales MD PCP - General 10/05/17 07/30/[address] [place] [phone] documented as of this encounter
--- OUTSIDE RECORDS SUMMARY | 2021-11-28 01:53 | XMS_ITS | Encounter Summary ---
:[address] [facility] Address [address] [place] [address] Care Team Providers Name Role Phone Mere Gonzales MD Primary Care Provider Reason for Visit Reason Comments Polymyalgia Rheumatica Encounter Details Date Type Department Care Team Description 06/22/2018 Office Visit [place] Unknown, Prov MD theresa Current chronic use of systemic steroids ; Osteoporosis - Main Barbie Huggins, DO [address] [place] [phone] PMR (polymyalgia rheumatica) ([facility]; [address] [facility] Perimenopausal [place], [place] [phone] Social History Tobacco Use Types Packs/Day Years [...] Sign Reading Time Taken Comments Blood Pressure - - Pulse - - Temperature - - Respiratory Rate - - Oxygen Saturation - - Inhaled Oxygen Concentration - - Weight 52.2 kg (115 lb) 06/22/2018 0849 EDT Height 160 cm (5' 2.99) 06/22/2018 0849 EDT Body Mass Index 20.38 06/22/2018 0849 EDT documented in this encounter [...] decisions? documented as of this encounter Discharge Disposition Disposition Code Departure Means Destination Auto Discharge documented in this encounter Progress Notes Zayra Johnson - 06/22/2018 0830 EDT Procedure Date: 06/22/2018 Referring Physician: Napoleon Carmona Chi, MD Previous Scan Date: 02/18/2016 ABN Necessary: No Ht 160 cm (62.99) Wt 52.2 kg (115 lb) BMI 20.38 kg/m?? Done AP SPINE Yes FEMUR Yes TOTAL BODY FOREARM LVA/VFA HEEL US PATIENT HISTORY: Patient Active Problem List Diagnosis ??? ADHD, predominantly inattentive type ??? Chronic abdominal pain ??? Constipation ??? PMR (polymyalgia rheumatica) ([facility]) ??? Raynaud phenomenon ??? Frequent UTI ??? Moderate episode of recurrent major depressive disorder ([facility]) ??? Overactive bladder ??? Hypertension ??? Primary hypercoagulable state ([facility]) Past Medical History: Diagnosis Date ??? Chronic abdominal pain ??? Factor V Leiden ([facility]) 10/29/2017 homozygote. FH VTE ??? Frequent UTI 10/29/2017 ??? Hypertension ??? PMR (polymyalgia rheumatica) ([facility]) ??? Post herpetic neuralgia ??? Primary hypercoagulable state ([facility]) 02/03/2018 -factor V Leiden homozygosity and elevated D-dimer (285) with FH thrombosis and FVL in her mother. Full thrombosis panel other than prothrombin mutation (no coverage) negative. -no prior hx VTE ??? Raynaud phenomenon 10/29/2017 Additional Comments: Previous/Prior Comparison? Yes Pharmacologic? No Osteopor[facility] Patient Information Ethnicity/Race: Nutrition and Habits: Do you consume dairy? Yes Number of servings per day? 1/2 - 1 Do you take calcium supplements? No Amount? Do you drink 3 or more alcoholic beverages daily? No Have you now or have you had in the past an eating disorder? No Do you or have you smoked in the last 6 months? No Family History: Did your mother or father have a hip fracture? No Do you have a parent or sibling who suffered a broken hip, shoulder, wrist or ribs after age 45? No Patient History-Medications: Have you taken any of the following medications or treatments. (Now or in the past)?: Steroid (prednisone, cortisone, Medrol) 5mg. or more for at least 3 months? Yes x 3 yrs for PMR. Thyroid medication for thyroid cancer suppression? No Anticonvulsants (phenytoin, Dilantin, phenobarbital) No GnRH Agonist (for endometriosis or prostate cancer, Example - Lupron) No Depo Povera (Current use) No Aromatase inhibitor: Letrozol (Femera), Anastrozole (arimidex), Exemestane (Aromasin) No TZD's for diabetes (Actos, Avandia) No Medical History: Have you had any of the following?: Hyperthyroidism (over active thyroid) No Hyperparathyroidism (over active parathyroid, high blood calcium) No Kidney failure No Rheumatoid arthritis No Seizure disorder (epilepsy) No Diabetes mellitus No Bariatric surgery/Gastric bypass No Back Surgery No Back X-ray Yes - L-Spine XR in 01/2018 Fractures after age 40 No Area: Treatments: Alendronate (Fosamax) Never, Date stopped: Calcitonin (Miacalcin) Never, Date stopped: Denosumab (Prolia) Never, Date stopped: Ibandronate (Boniva) Never, Date stopped: Pamidronate (Aredia) Never, Date stopped: Raloxifene (Evista) Never, Date stopped: Risendronate (Actonel) Never, Date stopped: Teriparatide (Forteo) Never, Date stopped: Zoledronic Acid (Reclast, Zomata) Never, Date stopped: Other: Never, Date stopped: For Women Only: What was your age at menopause? 53 (LMP 7+ mos ago - Irreg menses) Are you taking estrogen now or within the past year? Never, Date stopped: Have you been treated for breast cancer? Never Comments: Excluded L3-L4 due to OA/ SD. Zayra Johnson 06/22/2018 12:08 documented in this encounter Plan of Treatment Not on filedocumented as of this encounter Procedures Procedure Name Priority Date/Time Associated Diagnosis Comme nts DXA DUAL XRAY Routine 06/24/2018 9:22 EDT Current chronic use ABSORPTIOMETRY FOR BONE of systemic stero ids DENSITY ([facility] PERFORMED) documented in this encounter Results DXA DUAL XRAY ABSORPTIOMETRY FOR BONE DENSITY (06/24/2018 9:22 EDT) Pathologist Sig nature DEXA Bone Density [facility] DEXA Bone Density, External [facility] MEDICAL C ENTER Anatomical Region Laterality Modality Other Specimen Narrative This result has an attachment that is no t available. Performing Organization Address City/State/ZIP Code Phon e Number [facility] documented in this encounter Visit Diagnoses Diagnosis Current chronic use of systemic steroids PMR (polymyalgia rheumatica) ([facility] ( [facility]) Polymyalgia rheumatica Osteoporosis screening Special screening for osteoporosis Perimenopausal Symptomatic menopausal or female climact leila states documented in this encounter Care Teams Baler Relationship Specialty Start Date End Date Mere Gonzales MD PCP - General 10/05/17 07/30/20 [address] [place] [phone] documented as of this encounter
--- OUTSIDE RECORDS SUMMARY | 2021-11-28 01:53 | XMS_ITS | Encounter Summary ---
:1965 Author Organization [facility] Address [address] [place] [address] Care Team Providers Name Role Phone Mere Gonzales MD Primary Care Provider Reason for Visit Reason Onset Date Comments Results 02/17/2018 Encounter Details Date Type Department Care Team Description 02/17/2018 Telephone [facility] Napoleon Carmona Chi, MD Results Rheumatology & Immunology - [address] [place] [address], [address], [address] [place], [place] [phone] [place] [phone] (Wo rk) Social History Tobacco Use [...] encounter Miscellaneous Notes Telephone Encounter - Isatu Salas RN - 02/28/2018 1607 EST Patient advised of letter from Dr. Carmona. She will keep her follow up with her PCP. Telephone Encounter - Isatu Salas RN - 02/17/2018 1621 EST Left message for patient to call back. Brendaal read letter written to her on 01.[address] Carmona. elephone Encounter - Stacey Kwong - 02/17/2018 1552 EST Patient is anxiously awaiting her lab results and x-ray results from her visit on 01.24.[address] Carmona. Her insurance ends at the end of this month and would like to know if she needs to complete any other test or have medications filled. Please call as soon as possible. documented in this encounter Plan of Treatment Not on filedocumented as of this encounter Visit Diagnoses Not on filedocumented in this encounter Care Teams Statistical Methods Professor Relationship Specialty Start Date End Date Mere Gonzales MD PCP - General 10/05/17 07/30/[address] [place] [phone] documented as of this encounter
--- OUTSIDE RECORDS SUMMARY | 2021-11-28 01:53 | XMS_ITS | Encounter Summary ---
:1965 Author Organization [facility] Address [address] [place] [address] Care Team Providers Name Role Phone Mere Gonzales MD Primary Care Provider Reason for Visit Reason Comments Nephrolithiasis Encounter Details Date Type Department Care Team Description 02/09/2018 Office Visit [facility] Unknown, Prov MD theresa Nephrolithiasis Urology - Medical Urology, Ultrasound (Primary Dx) Office [address] [facility], [address] [place] [address] Social History Tobacco Use Types [...] documented as of this encounter Progress Notes Ravindra Grullon - 02/09/2018 1530 EST Renal ultrasound performed 02/09/2018 documented in this encounter Miscellaneous Notes Addendum Note - Andrew Cole RN - 02/09/2018 1530 EST Addended by: ANDREW COLE on: 02/18/2018 12:50 Modules accepted: Level of Service documented in this encounter Plan of Treatment Not on filedocumented as of this encounter Visit Diagnoses Diagnosis Nephrolithiasis - Primary Calculus of kidney documented in this encounter Care Teams Road Consultant Relationship Specialty Start Date End Date Mere Gonzales MD PCP - General 10/05/17 07/30/[address] [place] [phone] documented as of this encounter
--- OUTSIDE RECORDS SUMMARY | 2021-11-28 01:53 | XMS_ITS | Encounter Summary ---
:1965 Author Organization [facility] Address [address] [place] [address] Care Team Providers Name Role Phone Mere Gonzales MD Primary Care Provider Reason for Visit Reason Onset Date Comments Coordination Of Care 01/24/2018 Encounter Details Date Type Department Care Team Description 01/24/2018 Telephone [facility] Adult Zenobia Hawkins ie, Coordination Of Care Primary Care - [address] [phone] Social History Tobacco Use Types Packs/Day Years [...] this encounter Miscellaneous Notes Telephone Encounter - Analilia Hardy RN - 01/25/[address] Hogan: Surgery is under general, no heavy lifting for two weeks and she is prone for the procedure. This is an outpatient procedure. elephone Encounter - Analilia Hardy RN - 01/25/2018 0859 EST Call received from [facility] with below questions, she is being seen on 01/28 for pre op. Telephone Encounter - Kory Duggan RN - 01/24/2018 1626 EST Call to General Surgery Call was transferred to Dr. Hogan office Left message with Dr. Hogan office to clarify Zenobia's questions elephone Encounter - Zenobia Hawkins PA - 01/24/2018 1615 EST Patient is having surgery on 01/31/[address] Felicitas Hogan. I need this info EDIE. I need the following information to come up with an anticoagulation plan. What type of anesthesia? Is this outpatient surgery? Mobility restrictions after surgery? documented in this encounter Plan of Treatment Not on filedocumented as of this encounter Visit Diagnoses Not on filedocumented in this encounter Care Teams Emergency Department Nurse Relationship Specialty Start Date End Date Mere Gonzales MD PCP - General 10/05/17 07/30/[address] [place] [phone] documented as of this encounter
--- OUTSIDE RECORDS SUMMARY | 2021-11-28 01:53 | XMS_ITS | Encounter Summary ---
:1965 Author Organization [facility] Address [address] [place] [address] Care Team Providers Name Role Phone Mere Gonzales MD Primary Care Provider Reason for Referral Radiology Services (Urgent) - Closed Specialty Diagnoses / Procedures Referred By Contact Refer red To Contact Diagnoses Nephrolithiasis Charlene Brady MD Procedures CT RENAL COLIC WO CONTRAST [address] [facility] [address] [place] [phone] Referral ID Status Reason Start Date Expiration Date Visits Requ ested Visits Authorized [id number] Closed 02/11/2018 04/11/2018 1 1 Reason for Visit Reason Comments Follow-up 3 month Renal U/S Encounter Details Date Type Department Care Team Description 02/11/2018 Office Visit [facility] Charlene Brady Nephr olithiasis (Primary Dx); Urology - Medical MD [place] [facility] stones Office Building [address], [facility] [address] [phone] (Wo rk) Social History Tobacco Use [...] as of this encounter Patient Instructions Patient InstructionsCharlene Brady MD - 02/11/2018 9:15 EST [id number] signed by Charlene Brady MD at 02/11/2018 10:04 EST documented in this encounter Progress Notes Charlene Brady MD - 02/11/2018 0915 EST Subjective: Patient ID: Heike Salguero is an [address] Mere Gonzales has requested that I see Heike Salguero in consultation for Follow-up (3month Renal U/S). HPI She is here today for follow-up of her left kidney stone. He has a Hx of left groin pain and a left kidney stone. She has a complex Hx of pain and has had a recent interstim removed by Dr Hogan .She also has been seen by Urogyne. She has intermittent hematuria . I saw her for removal of a left obstructing kidney stone . She describes left sided vaginal and inguinal pain. On her renal CTU she had a 1 cm left renal pelvic . She had clear cut left stone pain and nausea that has improved . She has residual persistent pain that has persisted after her stent removal. She has know left fibroids efrain left ovarian cyst. She has intermittent hematuria and she has painful intercourse. Patient Active Problem List Diagnosis ??? ADHD, predominantly inattentive type ??? Chronic abdominal pain ??? Constipation ??? PMR (polymyalgia rheumatica) ([facility]) ??? Raynaud phenomenon ??? Frequent UTI ??? Moderate episode of recurrent major depressive disorder ([facility]) ??? Overactive bladder ??? Hypertension ??? Primary hypercoagulable state ([facility]) Past Medical History: Diagnosis Date ??? Chronic abdominal pain ??? Factor V Leiden ([facility]) 10/29/2017 homozygote. FH VTE ??? Frequent UTI 10/29/2017 ??? Hypertension ??? PMR (polymyalgia rheumatica) ([facility]) ??? Post herpetic neuralgia ??? Primary hypercoagulable state ([facility]) 02/03/2018 -factor V Leiden homozygosity and [...] Clotting Disorder Daughter Factor V Leiden Social Social History Tobacco Use ??? Smoking status: Never Smoker ??? Smokeless tobacco: Never Used Substance Use Topics ??? Alcohol use: Yes Comment: 1 wine with dinner ??? Drug use: No Current Outpatient Medications on File Prior to Visit Medication Sig Dispense Refill ??? amLODIPine (NORVASC) 5 mg tablet Take 1 Tab by mouth daily. 90 Tab 1 ??? aspirin (ASPIRIN LOW [...] mouth every evening. 90 Tab 3 ??? magnesium oxide (MAG-OX) 400 mg (241.3 mg magnesium) tablet Take 400 mg by mouth daily. ??? meloxicam (MOBIC) 15 mg tablet Take 0.5-1 Tabs by mouth daily. Take with stomach med omeprazole.30 Tab 2 ??? omeprazole (PRILOSEC) 20 mg capsule Take 1 Cap by mouth daily. 30 Cap 2 ??? oxybutynin (DITROPAN-XL) 5 mg CR tablet Take 1 Tab by mouth daily. 90 Tab 3 ??? predniSONE (DELTASONE) 1 mg tablet Take 5 Tabs by mouth daily. Decrease dose by 0.5mg every 3 weeks- Current dose 5mg daily 105 Tab 0 ??? UNABLE TO FIND Med Name: Tiffanie No current facility-administered medications on file prior to visit. No Known Allergies ROS - Constitutional: Negative. Respiratory: Negative. Cardiovascular: Negative. Objective: There were no vitals taken for this visit. Physical Exam No visits with results within 1 Day(s) from this visit. Latest known visit with results is: Phlebotomy Only on 02/09/2018 Component Date Value Ref Range Status ? ? D-Dimer 02/09/2018 236* <230 ng/mL Final Comment: CUTOFF VALUE FOR THE EXCLUSION OF DVT and PE: 230 ng/mL D-dimer units Any use of the age-adjusted cutoff value is a post-analytic modification of this FDA-approved test and is considered off-label use of the test result. [facility] laboratory does not have literature to support the validity of an age-adjusted cutoff for our specific assay. PSA: No results found for: PSA BMP: Lab Results Component Value Date NA 137 01/24/2018 K 3.9 01/24/2018 CL 100 01/24/2018 CO2 30 01/24/2018 BUN 20 01/24/2018 CREATININE 0.68 01/24/2018 CALCIUM 9.8 01/24/2018 CALCCA 9.5 01/24/2018 LABALBU 4.4 01/24/2018 Assessment / Plan: 1. Nephrolithiasis 2. Kidney stones She has residual pain since her stent removal with occasional GH . She had negative renal US this week. She will need a renal colic CT to R/O residual stones . She may benefit from pelvic floor PT. No orders of the defined types were placed in this encounter. Charlene Brady MD documented in this encounter Procedure Notes Charlene Brady MD - 02/11/2018 0915 EST Procedure: Procedures Renal ultrasound Indication: History of stones Technique: Using a 3.5 MHz probe bilateral renal scanning was performed. The right kidney measured 11.0 cm in size left kidney measured 10.9 cm in size. There is no hydronephrosis masses or stones seen Impression: Normal renal sonography and no evidence of recurrent kidney stone disease documented in this encounter Miscellaneous Notes Addendum Note - Charlene Brady MD - 02/11/2018 0915 EST Addended by: CHARLENE BRADY. on: 02/11/2018 10:59 Modules accepted: Orders documented in this encounter Plan of Treatment Not on filedocumented as of this encounter Procedures Procedure Name Priority Date/Time Associated Diagnosis Comme nts CT RENAL COLIC WO STAT 02/11/2018 16:40 Nephrolithiasis Res ults for this CONTRAST EST procedure are i n the results section. documented in this encounter Results CT RENAL COLIC WO CONTRAST (02/11/2018 16:40 EST) Anatomical Region Laterality Modality Other Specimen Narrative [facility] - 02/11/2018 17:[address] RENAL COLIC ??02/11/2018 4:40 PM Signs and Symptoms/Comments: ?? N20.0-Calculus of [id number]; Flank p ain, stone disease suspected, Kidney stone, known, follow u p Technique: Axial CT images obtained from abdomen im mediately superior to level of kidneys through the pelvis without ad ministration of contrast of any kind. Sagittal and coronal reformats generated. Comparison: CT urogram November 05, 2017 Findings: Kidneys and ureters: The previously seen 1.3 cm stone in the region of the left UPJ is no longer present. Fe w residual punctate stones remain in the left kidney. No evidence o f hydronephrosis or obstruction. The kidneys demonstrate nor mal attenuation with no contour deforming abnormality. The urete rs are incompletely seen, however, the visible portions are of nor mal course and caliber. Bladder: The bladder is grossly unremark able. Uterus, adnexa: A fibroid uterus is agai n seen. A 2 mm cystic lesion within the right adnexa is without signi ficant change. The previously seen 4.2 cm cystic lesion in the left adnexa is not seen on current exam. Included lung bases: No suspicious nodul es. There is a trace pericardial effusion. Unenhanced liver and spleen, as far as i ncluded: Normal attenuation with no contour deforming abnormality. Gallbladder, pancreas adrenal glands: Th e decompressed gallbladder, pancreas, and adrenal glands are without contour deforming abnormality. Bowel: No obstruction. Intermediate dens ity material in the region of the duodenum (axial 84) likely reflec ts ingested material. Stool is present throughout the colon. Peritoneal cavity: No free air. Abdominal wall: No bowel containing demarco ia. Lymphovascular: No discernible adenopath y. The major vascular structures are not well assessed on nonc ontrast imaging. Musculoskeletal: No significant osseous abnormality. Few punctate bone islands are present within the femo ral heads and acetabula. There has been interval removal of a rig ht sacral neurostimulator with a residual small fluid collection, likely reflecting blood products. Impression: 1. ??Interval removal of the previously seen 1.3 cm stone within the region of the left UPJ with few punctate residual stones remaining. No evidence of hydronephrosis or obstruc tion in either kidney. 2. ??A 1 cm density within the right upp er quadrant is felt to reflect ingested material within the duo denum. However, given that the ureters are not well seen in this re gion, a CT urogram can be obtained to confirm that this calcificat ion is not within the ureter if the patient is experiencing right fla nk pain. 3. ??Interval resolution of a 4.2 cm cys tic lesion in the left adnexa. 4. ??Interval removal of a right sacral neurostimulator, with a small fluid collection in the subcutaneous tis sues at the site of the battery pack. 5. ??Trace pericardial effusion. 6. ??Additional findings as described ab ove. I have personally reviewed the images an d the above interpretation and agree with the findings. Procedure Note Hetal Grande MD - 02/11/2018 CT RENAL COLIC 02/11/2018 4:40 PM Signs and Symptoms/Comments: N20.0-Calculus of [id number]-02; Flank p ain, stone disease suspected, Kidney stone, known, follow u p Technique: Axial CT images obtained from abdomen im mediately superior to level of kidneys through the pelvis without ad ministration of contrast of any kind. Sagittal and coronal reformats generated. Comparison: CT urogram November 05, 2017 Findings: Kidneys and ureters: The previously seen 1.3 cm stone in the region of the left UPJ is no longer present. Fe w residual punctate stones remain in the left kidney. No evidence o f hydronephrosis or obstruction. The kidneys demonstrate nor mal attenuation with no contour deforming abnormality. The urete rs are incompletely seen, however, the visible portions are of nor mal course and caliber. Bladder: The bladder is grossly unremark able. Uterus, adnexa: A fibroid uterus is agai n seen. A 2 mm cystic lesion within the right adnexa is without signi ficant change. The previously seen 4.2 cm cystic lesion in the left adnexa is not seen on current exam. Included lung bases: No suspicious nodul es. There is a trace pericardial effusion. Unenhanced liver and spleen, as far as i ncluded: Normal attenuation with no contour deforming abnormality. Gallbladder, pancreas adrenal glands: Th e decompressed gallbladder, pancreas, and adrenal glands are without contour deforming abnormality. Bowel: No obstruction. Intermediate dens ity material in the region of the duodenum (axial 84) likely reflec ts ingested material. Stool is present throughout the colon. Peritoneal cavity: No free air. Abdominal wall: No bowel containing demarco ia. Lymphovascular: No discernible adenopath y. The major vascular structures are not well assessed on nonc ontrast imaging. Musculoskeletal: No significant osseous abnormality. Few punctate bone islands are present within the femo ral heads and acetabula. There has been interval removal of a rig ht sacral neurostimulator with a residual small fluid collection, likely reflecting blood products. Impression: 1. Interval removal of the previously se en 1.3 cm stone within the region of the left UPJ with few punctate residual stones remaining. No evidence of hydronephrosis or obstruc tion in either kidney. 2. A 1 cm density within the right upper quadrant is felt to reflect ingested material within the duo denum. However, given that the ureters are not well seen in this re gion, a CT urogram can be obtained to confirm that this calcificat ion is not within the ureter if the patient is experiencing right fla nk pain. 3. Interval resolution of a 4.2 cm cysti c lesion in the left adnexa. 4. Interval removal of a right sacral ne urostimulator, with a small fluid collection in the subcutaneous tis sues at the site of the battery pack. 5. Trace pericardial effusion. 6. Additional findings as described goldie knight. I have personally reviewed the images an d the above interpretation and agree with the findings. Performing Organization Address City/State/ZIP Code Phon e Number [facility] documented in this encounter Visit Diagnoses Diagnosis Nephrolithiasis - Primary Calculus of kidney Kidney stones Calculus of kidney documented in this encounter Care Teams Election Assistant Relationship Specialty Start Date End Date Mere Gonzales MD PCP - General 10/05/17 07/30/20 [address] [place] [phone] documented as of this encounter
--- OUTSIDE RECORDS SUMMARY | 2021-11-28 01:53 | XMS_ITS | Encounter Summary ---
:1965 Author Organization [facility] Address [address] [place] [address] Care Team Providers Name Role Phone Mere Gonzales MD Primary Care Provider Encounter Details Date Type Department Care Team Description 01/12/2018 Results Only Imaging [facility] Garry Gonzales Adult Primary Care - MD Ayo Jimenez[address] [phone] Social History Tobacco Use Types Packs/Day Years [...] Priority Date/Time Associated Diagnosis Comme nts MA 2D/3D BILATERAL 01/12/2018 8:43 EST Re sults for this ARETHA ROUTINE procedure are i n SCREENING MAMMO the results section. documented in this encounter Results MA 2D/3D BILATERAL ARETHA ROUTINE SCREENING MAMMO (01/12/2018 8:43 EST) Anatomical Region Laterality Modality Other Specimen Narrative [facility] - 01/19/2018 16:37 EST Comparison has been made to previous images. Left Breast Findings: (Routine 3D tomosy nthesis with synthesized 2D views with CAD) The breast is heterogeneously dense (51% - 75% fibroglandular). This may lower the sensitivity of mammography . Calcifications are present in the upper outer quadrant. Right Breast Findings: (Routine 3D tomos ynthesis with synthesized 2D views with CAD) The breast is heterogeneously dense (51% - 75% fibroglandular). This may lower the sensitivity of mammography . Calcifications are present in the upper outer quadrant. IMPRESSION: INCOMPLETE LEFT BREAST: Spot magnification view(s) are recommended at this time in the craniocaudal and mediolateral pro jections. RIGHT BREAST: Spot magnification view(s) are recommended at this time in the craniocaudal and mediolatera l projections. OVERALL ASSESSMENT - CATEGORY 0 - INCOMP LETE: NEED ADDITIONAL IMAGING EVALUATION END OF IMPRESSION These results will be communicated to yo ur patient via a lay letter from Radiology. If any additional imagin g is needed we will contact your patient directly. Procedure Note Shanna Steen MD - 01/19/2018 Comparison has been made to previous moon ges. Left Breast Findings: (Routine 3D tomosy nthesis with synthesized 2D views with CAD) The breast is heterogeneously dense (51% - 75% fibroglandular). This may lower the sensitivity of mammography . Calcifications are present in the upper outer quadrant. Right Breast Findings: (Routine 3D tomos ynthesis with synthesized 2D views with CAD) The breast is heterogeneously dense (51% - 75% fibroglandular). This may lower the sensitivity of mammography . Calcifications are present in the upper outer quadrant. IMPRESSION: INCOMPLETE LEFT BREAST: Spot magnification view(s) are recommended at this time in the craniocaudal and mediolateral pro jections. RIGHT BREAST: Spot magnification view(s) are recommended at this time in the craniocaudal and mediolatera l projections. OVERALL ASSESSMENT - CATEGORY 0 - INCOMP LETE: NEED ADDITIONAL IMAGING EVALUATION END OF IMPRESSION These results will be communicated to yo ur patient via a lay letter from Radiology. If any additional imagin g is needed we will contact your patient directly. Performing Organization Address City/State/ZIP Code Phon e Number [facility] documented in this encounter Visit Diagnoses Not on filedocumented in this encounter Care Teams Automation Test Engineer Relationship Specialty Start Date End Date Mere Gonzales MD PCP - General 10/05/17 07/30/[address] [place] [phone] documented as of this encounter
--- OUTSIDE RECORDS SUMMARY | 2021-11-28 01:53 | XMS_ITS | Encounter Summary ---
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 0 08/05/2020 (VITAMIN D ORAL) hydrOXYzine (ATARAX) 25 mg Take 1 Tab [...] History mouth daily. of gastroesophageal reflux (GERD) oxybutynin (DITROPAN-XL) 5 Take 1 Tab by 90 Tab 3 201709/14/2018 mg CR tablet mouth daily. predniSONE (DELTASONE) 1 mg Take 5 Tabs by 105 Tab 0 01/2202/21/2018 tablet mouth daily. Decrease dose by 0.5mg every 3 weeks- Current dose 5mg daily UNABLE TO FIND Med Name: Tiffanie 0 05/24 documented as of this encounter Discharge Disposition Disposition Code Departure Means Destination Auto Discharge Home documented in this encounter Plan of Treatment Not on filedocumented as of this encounter Visit Diagnoses Not on filedocumented in this encounter Care Teams Skin Peeling Machine Operator Relationship Specialty Start Date End Date Mere Gonzales MD PCP - General 10/05/17 07/30/20 [address] [place] [phone] documented as of this encounter
--- OUTSIDE RECORDS SUMMARY | 2021-11-28 01:53 | XMS_ITS | Encounter Summary ---
:1965 Author Organization [facility] Address [address] [place] [address] Care Team Providers Name Role Phone Mere Gonzales MD Primary Care Provider Encounter Details Date Type Department Care Team Description 01/31/2018 Hospital Encounter [facility] Edison-David, Ov eractive bladder Perioperative Felicitas Damian MD [facility]- [id number] [place] [address] [phone] [id number] Social History Tobacco Use Types Packs/Day Years [...] Sign Reading Time Taken Comments Blood Pressure 109/58 01/31/2018 1315 EST Pulse - - Temperature 36.2 ??C (97.2 ??F) 01/31/2018 1315 EST Respiratory Rate 17 01/31/2018 1315 EST Oxygen Saturation 100% 01/31/2018 1326 EST Inhaled Oxygen Concentration - - Weight 49.9 kg (110 lb) 01/28/2018 1324 EST Height 160 cm (5' 3) 01/28/2018 1324 EST Body Mass Index 19.49 01/28/2018 1324 EST documented in this encounter Functional Status [...] as of this encounter Discharge Diagnoses Diagnosis T85.840A Pain due to nervous system pros th dev/grft, init-T85.840A[ICD-10-CM] N32.81 Overactive bladder-N32.81[ICD-10- CM] Z87.440 Personal history of urinary (tra ct) infections-Z87.440[ICD-10-CM] D68.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 This dose is a six hour dose. You could consider taking the next dose of Acetaminophen at or after 5:00 PM. Ketorolac 30mg. Was given today in the OR. This medication is in the NSAID class of anti inflammatory medications use for pain relief. If you want to take another medication in the NSAID family, like Ibuprofen or Naproxen, you are eligible to take it at or after 5:15 PM , following package instructions for proper dosage and frequency, You were given local numbing medication to the surgical site by the surgeon at the end of the surgical case today. This medication may provide relief from discomfort for a few hours, but it is difficult to predict when this benefit will wear off. Therefore, you should consider having a dose of Acetaminophen and or NSAID on board so that your discomfort can be minimized . Additional InstructionsRajwinder Starks RN - 01/31/2018 Nursing Discharge Instructions Diet: ?? You should increase your fluid intake as tolerable for the next 24 hours. ?? If you are unable to keep liquids down due to vomiting, you should contact your surgeon. Activity: ?? Unless specific surgical activities were given, you should alternate periods of rest with periodsof mild activity (i.e. walking around the house) and increase your activity as tolerated to normal daily activities. ?? To help prevent post-operative respiratory complications, take several deep breaths and a few vigorous coughs each hour while awake. Reducing Infection: ?? You and your household members should wash hands regularly, particularly after using the toilet and before handling food. ?? To reduce your risk of a wound infection follow the dressing care instructions from your surgeon. If you have any of the following symptoms, contact your surgeon o Fever greater than 101 degrees o Flu like symptoms (i.e. headache, nausea/vomiting, chills) o Swelling, redness, or drainage (yellow/green in color) around the surgical site o Persistent pain or pain that was controlled with medication but now has worsened. Considerations of Pain Medications: ?? In order to prevent constipation, increase your daily fluid intake and your fiber intake. You mayalso take daily wths-jwo-gngoxoe stool softener such as Colace. ?? Follow your prescription as written on the bottle. Contact your surgeon if you are having difficulty taking your pain medication as prescribed due to nausea/vomiting, excessive drowsiness/stupor, orother side effects. ?? Contact your surgeon if your pain medication does not seem to help with your pain. SCOPOLAMINE PATCH Definition A scopolamine patch (Transdermal Scop or Transderm-V) is an adhesive medication patch that is applied to the skin behind the ear. The patch is treated with the belladonna alkaloid scopolamine, an anticholinergic drug that is a central nervous system depressant and an antiemetic. Purpose Scopolamine patches are prescribed to reduce postoperative nausea and vomiting (PONV) associated with anesthesia and surgery. Scopolamine also has a mild analgesic and sedative effect, which adds to its therapeutic value for some surgical patients. Aftercare Patients who receive a scopolamine patch should not drive or operate heavy machinery until the therapy is complete. Patch therapy generally lasts about three days. Patches should be disposed of according to the specialties operator's directions in a secure place to ensure that small children or pets do not get access to them. If PONV has not resolved after patch therapy has ended, patients should talk to their doctor about their treatment options. Risks Possible complications or side effects from transdermal scopolamine include but are not limited to: short-term memory loss, fatigue, confusion, hallucinations, difficulty urinating, and changes in heart rate. The drug can trigger seizures and psychotic delusions in patients with a history of these problems. Dizziness, nausea, headache, and hypotension (low blood pressure) have also been reported in some patients upon discontinuation of scopolamine patch therapy. Patients who experience eye pain with redness and possible blurred vision should remove the patch immediately and call their doctor, since these symptoms could be signs of a rare but possible side effect of scopolamine called narrow-angle glaucoma. Blurriness with or without pupil dilation is also a potential but generally harmless side effect of the drug. Normal results When scopolamine patch therapy works, it reduces or eliminates post-surgical nausea and vomiting. Patients frequently experience dry mouth as a common side effect of the drug. DISCHARGE INSTRUCTIONS Diet: Resume preoperative diet Activity: Athletics and extreme exertion, such as heavy lifting or lifting anything over 15 lbs., should be avoided for 1-2 weeks. Driving: No driving while taking narcotic pain medication Skin/Wound Care: You have surgical glue on your incision which will start to fall off after 2-3 days. There is no other dressing needed. Bathing: No showering until 24 hours after surgery. Shower only afterwards for one week, then no bathing restrictions. Symptoms to Call Your Doctor About: Burning with urination Chest pain Increased blood in urine Pain unrelieved by medication Shortness of breath Temperature greater than 101 degrees F Urinary retention Appointments: Please see Felicitas Hogan MD for follow up in the office. Our office will call in the next few days to confirm an appointment time. If you do not hear from us in one week, please call [facility], . Future Appointments Date Time Provider Department Center 02/07/2018 9:30 Gilda Rajput MD [facility]YNCONT None 02/07/2018 15:00 Christine Alvares MD EP2 Hem/Onc None 02/09/2018 15:30 Urology, Ultrasound [facility] None 02/11/2018 9:15 Alex Ren MD [facility] None 02/17/2018 14:20 Felicitas Hogan MD Continence None 02/21/2018 16:15 Mere Gonzales MD [facility] None 06/22/2018 8:30 Balbina Olmstead MD EP5 Osteo None 08/01/2018 8:50 Napoleon Carmona Chi, MD EP5 Rheum None documented in this encounter Medications at Time [...] Factor V Leiden ([facility]) ([facility]) UNABLE TO FIND Med Name: Tiffanie 0 05/24 documented as of this encounter Ordered Prescriptions Prescription Sig Dispensed Refills Start Date End Date ondansetron (ZOFRAN-ODT) 4 Take 1 Tab by 11 Tab 0 201702/07/2018 mg disintegrating tablet mouth every 8 hours as needed for Nausea. cephALEXin (KEFLEX) 250 mg Take 1 Cap by 12 Cap 0 201702/03/2018 capsule mouth every 6 hours for 3 days. HYDROmorphone (DILAUDID) 2 Take 1 Tab by 5 Tab 0 201702/07/2018 mg tablet mouth every 8 hours as needed for Pain. Daily Max: 6 mg cephALEXin (KEFLEX) 250 mg Take 1 Cap by 12 Cap 0 201701/31/2018 capsule mouth every 6 hours for 3 days. documented in this encounter Discharge Disposition Disposition Code Departure Means Destination Home or Self Care documented in this encounter Progress Notes Linnea Real, GABY - 01/28/2018 1314 EST Heike Salguero has been instructed as follows regarding medication administration for the day of the scheduled procedure. Per Prism note: Date of Surgery: 01/31/2018Medicines which should be stopped 5-7 days prior to surgery are meloxicamand supplements. Anticoagulation: Xarelto 10 mg PO once daily to start on POD 1 in the AM and continue for 10 days. This has been prescribed by her apprentice painter brush. Patient states that since her surgery is so early, shes not planning to take her meds; needs food with meds. Instructions for Taking Medications Day of Surgery Medication Sig Last Dose Hold DOS Take DOS amLODIPine (NORVASC) 5 mg tablet Take 1 Tab by mouth daily. Take aspirin (ASPIRIN LOW DOSE) 81 mg EC tablet Take 81 mg by mouth daily. Take cyanocobalamin (VITAMIN B-12) 500 mcg tablet Take 500 mcg by mouth daily. 01/27/2018 dextroamphetamine-amphetamine (ADDERALL) 15 mg tablet Take 1 Tab by mouth daily. Daily Max: 15 mg Take ergocalciferol, vitamin D2, (VITAMIN D ORAL) Take by mouth. 01/27/2018 hydrOXYzine (ATARAX) 25 mg tablet Take 1 Tab by mouth every evening. Take LAXATIVE, BISACODYL, ORAL Take by mouth. Hold magnesium oxide (MAG-OX) 400 mg (241.3 mg magnesium) tablet Take 400 mg by mouth daily. 01/27/2018 meloxicam (MOBIC) 15 mg tablet Take 0.5-1 Tabs by mouth daily. Take with stomach med omeprazole. 01/27/2018 omeprazole (PRILOSEC) 20 mg capsule Take 1 Cap by mouth daily. Take oxybutynin (DITROPAN-XL) 5 mg CR tablet Take 1 Tab by mouth daily. Take predniSONE (DELTASONE) 1 mg tablet Take 4 Tabs by mouth daily. Total dose 9 mg(+5mg tab) Patient taking differently: Take 5.5 mg by mouth daily. Total dose 9 mg(+5mg tab) Take rivaroxaban (XARELTO) 10 mg tablet tablet Take 1 Tab by mouth daily. Patient not taking: Reported on 01/28/2018 Starting after surgery UNABLE TO FIND Med Name: Tiffanie 01/27/2018 Deneen Callaway RN - 01/24/2018 0940 EST Spoke with Muna Irene @ Dr Hogan office regarding Dr Hogan progress note dated 12/03/17. Surgeons note indicates - We discussed removal of InterStim. She elects to proceed with this. Consent obtained and will plan for this in January. Will need anticoagulation plan given history of Factor V Leiden. Muna stated that the information was sent to Dr Gonzales and that the pt has her preop appt scheduled for 01/28/18. DENEEN HUA RN 01/24/2018 9:44 ?? documented in this encounter H&P Notes Moe Salguero MD - 01/31/2018 0953 EST The preoperative history and physical which was performed within 30 days of this procedure has been reviewed and the clinically appropriate elements of the physical examination havebeen repeated. There are no changes to the documented history and physical or if so such changes aredocumented below Moe Salguero MD 01/31/2018 9:54 Zenobia Casrto PA - 01/28/2018 0945 EST Preoperative H&P Chief Complaint: No chief complaint on file. Planned Procedure: Remove InterStim Surgeon: Felicitas Hogan MD Planned Procedure Date: 01/31/18 Problem List Available or Initiated: yes HISTORY OF PRESENT ILLNESS: I am seeing this patient in Consultation for a preoperative exam for Dr. Hogan. Heike Salguero is a 52 y.o., female, with a history of frequent UTIs and nephrolithiasis. After she underwent stent removal in October she developed urinary hesitancy and urgency. It has not resolved. She has a mal functioning InterStim that needs to be removed at this time. She does have Factor V Leiden and has been evaluated by hematology. She does have a plan in place byDanitza Ramey NP for postop anticoagulation. She has PMR and is currently tapering down on prednisone. She is currently on 5.5 mg daily. Prior h/o of anesthetic complications: yes, history of nausea and vomiting. Prior h/o bleeding problems: yes- pt has Factor V Leiden Prior h/o DVT/PE: no Family history of anesthetic complications, bleeding problems or DVT/PE: yes. Mother & daughtershave Factor V Leiden. Mom had 3 DVTs. Cardiovascular or pulmonary risk factors: none Patient Active Problem List Diagnosis Date Noted ??? Moderate episode of recurrent major depressive disorder ([facility]) 11/26/2017 ??? Chronic abdominal pain 10/29/2017 ??? Constipation 10/29/2017 ??? PMR (polymyalgia rheumatica) ([facility]) 10/29/2017 ??? Raynaud phenomenon 10/29/2017 ??? Frequent UTI 10/29/2017 ??? Factor V Leiden ([facility]) 10/29/2017 ??? 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 Chronic abdominal pain ??? Factor V Leiden ([facility]) 10/29/2017 ??? Frequent UTI 10/29/2017 ??? PMR (polymyalgia rheumatica) ([facility]) ??? Post herpetic neuralgia ??? [...] Arthritis-Osteo Mother ??? Ulcerative Colitis Brother Social History Tobacco Use ??? Smoking status: Never Smoker ??? Smokeless tobacco: Never Used Substance Use Topics ??? Alcohol use: Yes Comment: 1 wine with dinner No Known Allergies Current Outpatient Medications: amLODIPine (NORVASC) 5 mg tablet cyanocobalamin (VITAMIN B-12) 500 mcg tablet dextroamphetamine-amphetamine (ADDERALL) 15 mg tablet ergocalciferol, vitamin D2, (VITAMIN D ORAL) hydrOXYzine (ATARAX) 25 mg tablet LAXATIVE, BISACODYL, ORAL magnesium oxide (MAG-OX) 400 mg (241.3 mg magnesium) tablet meloxicam (MOBIC) 15 mg tablet omeprazole (PRILOSEC) 20 mg capsule oxybutynin (DITROPAN-XL) 5 mg CR tablet predniSONE (DELTASONE) 1 mg tablet [START ON 02/01/2018] rivaroxaban (XARELTO) 10 mg tablet tablet UNABLE TO FIND No current facility-administered medications for this visit. REVIEW OF SYSTEMS: unremarkable except as noted in the HPI PHYSICAL EXAMINATION: There were no vitals taken for this visit. Organ system Neg Pos Not examined Details Constitution/General x EENT & Mouth x Neck/Thyroid x Skins,nodes, glands x Respiratory x Heart x Peripheral Vascular x Breasts and Axillae x Abdomen x Scrotum/testes x Pelvic x Rectal x Musculoskeletal x Neurologic x LABS: N/A EKG: N/A Impression: Pt is a 52-year-old female with Factor V Leiden, PMR and Raynaud's phenomenon at low risk for the proposed surgery. Revised Cardiac Risk Index: 0 risk factors. Plan: Anesthesia per surgeon, pain management per surgeon, antibiotics per surgeon. Medicines which should be stopped 5-7 days prior to surgery are meloxicam and supplements. Anticoagulation: Xarelto 10 mg PO once daily to start on POD 1 in the AM and continue for 10 days. This has been prescribed by her apprentice painter brush. YAZAN Dalal 01/28/2018 9:47 Revised Cardiac Risk Index (Amaro - six independent predictors of cardiac complications): 1. High risk surgery (vascular, intraperitoneal, intrathoracic) 2. History of CAD (history of VA or a positive ETT, current ischemic chest pain, use of nitrates, orQ waves on ECG with pathological Q waves. (Don't count previous CABG unless another of the factors is present)) 3. Hx CHF 4. Hx Stroke 5. Cr >2.0 mg/dl 6. DM on insulin No risk factors 0.4 to 1.0% vs <1% when treated with beta blockers One to two risk factors 2.2 to 6.6% vs 0.8 to 1.6% when treated with beta blockers Three or more risk factors ----- >9% vs >3% when treated with beta blockers Patient requires endocarditis prophylaxis (see guideline summary below): not applicable. Perioperative beta-norm recommendation (see guideline summary below): no - betablocker not indicated. GENERAL PREOP INSTRUCTIONS: Proceed with surgery as planned. Call surgeon if develops respiratory illness, fever, or other illness. Letter sent to requesting surgeon listed above Portions of this document have been prepared with speech recognition software or keyboard data entrytechniques. Minor irregularities or keyboarding misprints may be present. SUMMARY OF GUIDELINES: Endocarditis prophylaxis indications: Antibiotics are indicated for prosthetic heart materials (not routine MVP), uncorrected congenital heart anomalies, history of endocarditis; and only for surgeriesof mouth, respiratory tract, or infected tissue. Options for a one-time oral dose of antibiotic taken 30 - 60 minutes prior to the procedure include amoxicillin 2 grams, clindamycin 600 mg, or azithromycin 500 mg. Guideline Title: Prevention of Infective Endocarditis Guidelines From the [place] [employer]: A Guideline From the [place] [employer] Rheumatic Fever, Endocarditis, and Kawasaki DiseaseCommittee, [place] on Cardiovascular Disease in the [place], and the [place] on Clinical Cardiology, Co uncil on Cardiovascular Surgery and Anesthesia, and the Quality of Care and Outcomes Research Interdisciplinary Working Group. Please see Circulation. 2007;116:3170-6669 for the detailed indications. Shweta-operative betablocker (BB) indications: For patients already on BB for angina, arrhythmia, or HTN continue the BB (Class I). For patients not on BB, consider adding 1 week prior to surgery for vascular surgery in patients with CAD or multiple risk factors; or CHD or multiple risk factors undergoing intermediate - to high-risk procedures (Class IIa). Consider continuing the BB 2-4 weeks post-operatively. Otherwise, starting a perioperative betablocker may be harmful. Guideline Title: 2009 ACCF/AHA focused update on perioperative beta blockade incorporated into the ACC/AHA 2007 guidelines on perioperative cardiovascular evaluation and care for noncardiac surgery. A report of the [place] [employer] Foundation/[place] [employer] Task Force on Practice Guidelines. Please see J Am Mushtaq Cardiol. 2008; Jan 15;54(22):b42-b272 for the detailed indications. documented in this encounter OR Notes OR Surgeon - Felicitas Hogan MD - 01/31/2018 0000 EST OPERATIVE REPORT SERVICE DATE: 01/31/2018 SURGEON: Felicitas Hogan MD MACHINIST OUTSIDE: Moe Salguero MD PREOPERATIVE DIAGNOSIS: Overactive bladder with previously placed InterStim, desires removal. POSTOPERATIVE DIAGNOSIS: Overactive bladder with previously placed InterStim, desires removal. ANESTHESIA: General. PROCEDURE: Removal of InterStim device. INDICATIONS: This is a 52-year-old female with a history of overactive bladder who had a previously placed InterStim approximately 10 years ago who has had refractory pain over the site of the generator placement. Due to her symptoms, she desired to have the battery and device removed in its entirety.After extensive counseling and other options, this procedure is what she presented for today. NARRATIVE: The patient was brought to the operating room and identified. Part 1 of the safety checklist was then completed. General anesthesia was achieved and the patient was placed in the prone position. At this point, part 2 of the safety checklist was completed and the patient was prepped and draped in the normal sterile fashion. At this point, attention was directed towards the previously placedgenerator site. A well-demarcated scar was visualized just above the right buttock. The generator was palpated easily at this point and an approximately 4 cm incision was made utilizing a 10-blade. Further dissection was carried out using electrocautery until the generator pocket was identified and opened. At this point, blunt dissection was used to free the generator and it was subsequently removed out of the incision. The wire was identified and a looping area was cut out from the deep pocket. Thewire was straight. At this point, attention was directed toward the midline of the back where another previous incisionwas identified with a well-healed scar. There was an obvious wire loop subcutaneously identifiable. This was palpated and the 10- blade was used to make another incision over the previous scar at the midline. This incision was approximately 1 cm. The wire was identified and encountered and isolated utilizing Adson forceps. Once identified, blunt dissection was used to free the wire from subcutaneous tissues and the wire was pulled through from the site of the generator out through the midline. At this point, gentle traction was placed on the proximal aspect of the wire leading down into the S3 foramen. Gentle traction was continuously applied in a stepwise fashion utilizing mosquito clamps. Eventually, the lead was freed completely and identified the tip and all tines were intact and thus the entire InterStim device was removed completely from the body. At this point, attention was then directed back toward the generator site and a 3-0 Vicryl was used in a running fashion to close the generator pocket. This was then followed by closure of the skin with a running subcuticular suture utilizing Monocryl. A single interrupted Monocryl was used subcuticularly to close the midline incision. Once this was performed, Dermabond was used to seal the outer closure. At this point, part 3 of the safety checklist was completed just after local anesthesia was introduced at the incisions and there were no concerns with part 3 of the safety checklist. COMPLICATIONS: None apparent. ESTIMATED BLOOD LOSS: Minimal. FOREIGN MATERIALS RETAINED: None. SPECIMENS: None. CULTURES: None. Dr Hogan was present and scrubbed for the entirety of this case. Unless otherwise noted, there were no complications, no blood loss, no cultures obtained, no specimens removed, and no drains retained. Felicitas Hogan MD 11 44 AM / Moe Salguero MD en Confirmation: [id number] Dictation ID: [id number] documented in this encounter Miscellaneous Notes Anesthesia Post-Eval - Ashutosh Rangel MD - 01/31/2018 1318 EST Anesthesia Post op Note Heike Salguero [id number] Anesthesia received: General; Vital Signs: Temp: 36.1 ??C (97 ??F), Heart Rate: 69 BPM, BP: 112/61, Resp: 16, SpO2: 100 % Vital signs Stable: Yes Consciousness: Recovered to baseline Patient's participation in evaluation:Able to participate Temperature Status: Respiratory Status: Airway patent Supplemental O2: Room air Oxygen Saturation: Within patient's normal range Cardiovascular Status: Within patient's normal range Post-op Hydration: Adequate Nausea / Vomiting: None Pain Control: Adequate Current Pain Score: Numeric Pain Level (Scale 1-10): 0 Post-op Assessment: Tolerated procedure well Disposition: Home Complications: No apparent anesthetic complications Ashutosh Rangel MD 01/31/2018 13:18 rief Op Note - Moe Salguero MD - 01/31/2018 0954 EST Brief OP Note Surgeon: Felicitas Hogan MD Parts Counterman: Jose M HERNÁNDEZ Pre-procedure diagnosis: Urgency, frequency, desires interstim removal Post-procedure diagnosis: same Procedure: Removal of interstim battery and lead Anesth: general Findings: Generator and tined lead removed completely, all components intact EBL: minimal IVF: 900cc UOP: Not recorded Specimen: none Cultures: none Foreign Material Retained: none Complications: None apparent Disposition: PACU in stable condition, then home Moe Salguero MD 01/31/2018 9:54 documented in this encounter Plan of Treatment Not on filedocumented as of this encounter Procedures Procedure Name Priority Date/Time Associated Diagnosis Comme nts ECG REPORT - SCANNED 02/02/2018 15:05 EST documented in this encounter Visit Diagnoses Diagnosis Overactive bladder Hypertonicity of bladder documented in this encounter Administered Medications Inactive Administered Medications - up to 3 most recent administrations Medication Order MAR Action Action Date Dose Rate Site atropine 0.1 mg/mL syringe 0.5 mg 0.5 mg, intravenous, PRN, Starting on Mo n 01/31/18 at 1122, Until Wed01/31/18 at 1626, Symptomatic HR < 50, Routine, Recovery (only) ceFAZolin (ANCEF) syringe 2 g Given by Other 01/31/2018 10:45 EST 2 g IV 2 g, intravenous, Administer over 10 Minutes, PRE-OP ONCE, 1 dose, On Wed01/31/18 at 0915, Routine, Pre-Op DOS Rx Approved diphenhydrAMINE (BENADRYL) injection 12. 5 mg 12.5 mg, intravenous, PRN, 1 dose, Starting on 12/09 at 1122, Until Wed01/31/18 at 1626, nausea, Routine, Recovery (only) fentaNYL citrate (PF) injection 25-50 mc g 25-50 mcg, intravenous, EVERY 5 MIN PRN, Starting on Wed01/31/18 at 1122, Until Wed01/31/18 at 1626, Pain, Routine, Recovery (only) HYDROmorphone (DILAUDID) tablet 2-4 mg 2-4 mg, oral, EVERY 30 MINUTES PRN, 2 doses, Starting on Wed01/31/18 at 1122, Until Wed01/31/18 at 1626, Pain, Routine, Recovery (o nly) lactated ringers (LR) infusion New Bag 01/31/2018 9:08 EST 30 mL/hr 30 mL/hr at 30 mL/hr, 30 mL/hr, intravenous, CONTINUOUS, Starting on Wed01/31/18 at 0915, Until Wed01/31/18 at 1626, Routine, Pre-Op DOS Rx Approved lactated ringers (LR) infusion at 75 mL/hr, intravenous, CONTINUOUS, St arting on Wed01/31/18 at 1145, Until Wed01/31/18 at 1626, Routine, Recovery (only) metoCLOPramide (REGLAN) injection 10 mg 10 mg, intravenous, PRN, 1 dose, Starting on 01/31 at 1122, Until Wed01/31/18 at 1626, Nausea, Routine, Recovery (only) midazolam (PF) (VERSED) injection 1 mg 1 mg, intravenous, EVERY 5 MIN PRN, 2 doses, Starting on Wed01/31/18 at 1122, Until Wed01/31/18 at 1626, Anxiety, Routine, Recovery (only) naloxone (NARCAN) injection 0.2 mg 0.2 mg, intravenous, PRN, Starting on Mo n 01/31/18 at 1122, Until 01/31/18 at 1626, Opioid Reversal, Routine, Recovery (only) ondansetron (PF) (ZOFRAN) injection 4 mg 4 mg, intravenous, PRN, 1 dose, Starting on Mon at 1122, Until 01/31/18 at 1626, Nausea, Vomiting, Routine, Recovery (only) documented in this encounter Discontinued Medications Medication Sig Discontinue Reason Start Date End Date cephALEXin (KEFLEX) 250 Take 1 Cap by mouth Reorder 01/31/2018 01/31/2018 mg capsule every 6 hours for 3 days. documented as of this encounter Active and Recently Administered Medications Times are shown in EST. Scheduled Medication Order 01/29/2018 01/30/2018 01/31/2018 ceFAZolin (ANCEF) syringe 2 g (COMPLETED) 1045 (Given by Other - Provider: Delmis Krishna RN - Comment: given by Mere Byrd, anesthesia) 2 g, intravenous, Administer over 10 Min utes, PRE-OP ONCE, 1 dose, 01/31/18 at 0915, Routine Continuous Medication Order 01/29/2018 01/30/2018 01/31/2018 lactated ringers (LR) infusion 0 908 (New Bag - Provider: Mere Goodrich RN) at 30 mL/hr, 30 mL/hr, intravenous, CONT INUOUS, Starting 01/31/18 at 0915, Until Wed01/31/18 at 1626, Routine lactated ringers (LR) infusion 1 145 (Canceled Entry - Provider: Batch Job User Admin - Comment: Automatically canceled at discontinue of medication order) at 75 mL/hr, intravenous, CONTINUOUS, St arting 01/31/18 at 1145, Until Wed01/31/18 at 1626, Routine PRN Medication Order 01/29/2018 01/30/2018 01/31/2018 atropine 0.1 mg/mL syringe 0.5 mg 0.5 mg, intravenous, PRN, Starting Mon 1 04/03/17 at 1122, Until Wed01/31/18 at 1626, Symptomatic HR < 50, Routine diphenhydrAMINE (BENADRYL) injection 12.5 mg 12.5 mg, intravenous, PRN, 1 dose, Start ing Wed01/31/18 at 1122, Until Wed01/31/18 at 1626, nausea, Routine fentaNYL citrate (PF) injection 25-50 mcg 25-50 mcg, intravenous, EVERY 5 MIN PRN, Starting Wed01/31/18 at 1122, Until Wed01/31/18 at 1626, Pain, Routine HYDROmorphone (DILAUDID) tablet 2-4 mg 2-4 mg, oral, EVERY 30 MINUTES PRN, 2 do ses, Starting Wed01/31/18 at 1122, Until Wed01/31/18 at 1626, Pain, Routine metoCLOPramide (REGLAN) injection 10 mg 10 mg, intravenous, PRN, 1 dose, Startin g Wed01/31/18 at 1122, Until Wed01/31/18 at 1626, Nausea, Routine midazolam (PF) (VERSED) injection 1 mg 1 mg, intravenous, EVERY 5 MIN PRN, 2 do ses, Starting Wed01/31/18 at 1122, Until Wed01/31/18 at 1626, Anxiety, Routine naloxone (NARCAN) injection 0.2 mg 0.2 mg, intravenous, PRN, Starting Wed04/03/17 at 1122, Until Wed01/31/18 at 1626, Opioid Reversal, Routine ondansetron (PF) (ZOFRAN) injection 4 mg 4 mg, intravenous, PRN, 1 dose, Starting Wed01/31/18 at 1122, Until Wed01/31/18 at 1626, Nausea, Vomiting, Routine documented in this encounter Orders Medications Ordered That Might Not Have Count Last Ord ered Date First Ordered Date Been Administered atropine 0.1 mg/mL syringe 0.5 mg 1 01/31/2018 diphenhydrAMINE (BENADRYL) injection 12.5 1 2017 mg fentaNYL citrate (PF) injection 25-50 mcg 1 2017 HYDROmorphone (DILAUDID) tablet 2-4 mg 1 8 lactated ringers (LR) infusion 1 01/31/2018 metoCLOPramide (REGLAN) injection 10 mg 1 02/01/20 18 midazolam (PF) (VERSED) injection 1 mg 1 8 naloxone (NARCAN) injection 0.2 mg 1 01/31/2018 ondansetron (PF) (ZOFRAN) injection 4 mg 1 018 Procedures Count Last Ordered Date First Ordered Date ECG REPORT - SCANNED 1 02/02/2018 Admission Count Last Ordered Date First Ordered Date STATUS: OUTPATIENT SURGICAL OP 1 01/31/2018 BED/SERVICES Transfer Count Last Ordered Date First Ordered Date NOTIFY PPS PACU PATIENT DISCHARGE 1 01/31/2018 NOTIFY PPS PATIENT ARRIVAL IN PACU 1 01/31/2018 Discharge Count Last Ordered Date First Ordered Date DISCHARGE PATIENT 1 01/31/2018 documented in this encounter Care Teams Belt Polisher Relationship Specialty Start Date End Date Mere Gonzales MD PCP - General 10/05/17 07/30/20 [address] [place] [address] documented as of this encounter
--- OUTSIDE RECORDS SUMMARY | 2021-11-28 01:53 | XMS_ITS | Encounter Summary ---
:1965 Author Organization [facility] Address [address] [place] [address] Care Team Providers Name Role Phone Mere Gonzales MD Primary Care Provider Reason for Visit Reason Comments Medication Management Encounter Details Date Type Department Care Team Description 02/21/2018 Office Visit [facility] Janet Raynaud's phenomenon without gangrene (Primary Dx); Adult Primary Care - Mere Jimenez MD ADHD, predominantly inattentive type; [place] [address] Frequent UTI; [address] [place] [address] [place], History of gastroesophageal reflux (GERD); [place] [address] [place] [address] Primary osteoarthritis involving multipl e joints [phone] Social History Tobacco Use Types Packs/Day Years [...] Sign Reading Time Taken Comments Blood Pressure 104/70 02/21/2018 1616 EST Pulse 96 02/21/2018 1616 EST r Temperature 37.3 ??C (99.2 ??F) 02/21/2018 1616 EST Respiratory Rate 16 02/21/2018 1616 EST Oxygen Saturation - - Inhaled Oxygen Concentration - - Weight 51.7 kg (114 lb) 02/21/2018 1616 EST Height - - Body Mass Index 20.19 [...] Sig Dispensed Refills Start Date End Date dextroamphetamine-amphetami Take 1 Tab by 60 Tab 0 02/2104/25/2018 ne (ADDERALL) 15 mg tablet mouth daily. Daily Max: 15 mg meloxicam (MOBIC) 15 mg Take 1 Tab by 90 Tab 3 8 09/21/2018 tabletIndications: Primary mouth daily. 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 omeprazole (PRILOSEC) 20 mg Take 1 Cap by 90 Cap 3 02/2109/21/2018 capsuleIndications: History mouth daily. of gastroesophageal reflux (GERD) predniSONE (DELTASONE) 1 mg Take 4.5 Tabs by 200 Tab 0 04/25/2018 tablet mouth daily for 90 days. Decrease dose by 0.5mg every 2 weeks documented in this encounter Progress Notes Mere Gonzales MD - 02/21/2018 1615 EST Heike Salguero, 52 y.o. female PRIMARY CARE PROVIDER: Mere Gonzales CHIEF COMPLAINT: Chief Complaint Patient presents with ??? Medication Management HISTORY OF PRESENT ILLNESS: Heike Salguero is a 52 y.o. female here for follow-up. She is losing her insurance soon. She and her had to sell their house due to financial reasons and she can't afford insurance right now. She is working on this. She is very happy with the amlodipine and it made a huge difference in her raynauds. She is down to 4.5mg prednisone and decreasing by 0.5mg every2 weeks. She really hopes to get off several medications in the future. She has been dealing with ongoing microscopic hematuria with urology ever since the stent in November. She also is having vaginal pain and saw pelvic floor PT and is now taking gabapentin for it. Patient Active Problem List Diagnosis Date Noted ??? Primary hypercoagulable state ([facility]) 02/03/2018 -factor V Leiden homozygosity and [...] episode of recurrent major depressive disorder ([facility]) 11/26/2017 ??? Chronic abdominal pain 10/29/2017 ??? Constipation 10/29/2017 ??? PMR (polymyalgia rheumatica) ([facility]) 10/29/2017 ??? Raynaud phenomenon 10/29/2017 Responded well to amlopidine ??? Frequent UTI 10/29/2017 ??? 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 Chronic abdominal pain ??? Factor V Leiden ([facility]) 10/29/2017 homozygote. FH VTE ??? Frequent UTI 10/29/2017 ??? Hypertension ??? PMR (polymyalgia rheumatica) ([facility]) ??? Post herpetic neuralgia ??? Primary hypercoagulable state ([facility]) 02/03/2018 -factor V Leiden homozygosity and [...] education: None ??? Highest education level: None Social Needs ??? Financial resource strain: None ??? Food insecurity - worry: None ??? Food insecurity - inability: None ??? Transportation needs - medical: None ??? Transportation needs - non-medical: None Occupational History ??? None Tobacco Use ??? Smoking status: Never Smoker ??? Smokeless tobacco: Never Used Substance and Sexual Activity ??? Alcohol use: Yes Comment: 1 wine with dinner ??? Drug use: No ??? Sexual activity: Yes Partners: Male control/protection: Surgical Comment: vas Other Topics Concern ??? 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 She drinks 1 glass of wine /week. Nonsmoker. MEDICATION REVIEW: Medications reviewed & updated. ALLERGIES: Allergies as of 02/21/2018 ??? (No Known Allergies) REVIEW OF SYSTEMS: A ten point ROS was performed and was negative except for pertinent positives in the HPI PHYSICAL EXAM: Vitals: BP 104/70 (BP Cuff Location: Left arm, Patient Position: Sitting, BP Cuff Sizes: Adult, regular) Pulse 96 Comment: r Temp 37.3 ??C (99.2 ??F) (Tympanic) Resp 16 Wt 51.7 kg (114 lb) BMI 20.19 kg/m?? Gen - NAD Psych - alert and oriented x 3, normal mood and affect Neuro - CN II-XII grossly intact, normal gait ASSESSMENT / PLAN : 52 y.o. female here for follow-up. 1. Raynauds - symptoms are much improved with norvasc. She is going to try 7.5mg and we discussed signs of hypotension to look out for. 2. ADD - continue adderall. We discussed how this can effect raynauds but she feels it's necessary to function at work. She knows q3mo visits are necessary (due to insurance about to run out I [id number] tabs today instead of the usual 28. I offered to do 90 but she declined. We will go back to the usual disp 28 next time) 3. Frequent UTIs/Incontinence with recent kidney stone - followed by the continence center and urology. - continue oxybutynin, gabapentin for pain 4. Possible PMR/Chronic fatigue - diagnosis uncertain. Followed by rheumatology, now downtitrating prednisone. Currently at 4.5mg. She hopes to get off several meds. DEXA scheduled 5. Depression/Anxiety - declines therapy at this [...] as of this encounter Visit Diagnoses Diagnosis Raynaud's phenomenon without gangrene - Primary ADHD, predominantly inattentive type Attention deficit disorder without menti on of hyperactivity Frequent UTI Urinary tract infection, site not specif ied History of gastroesophageal reflux (GERD ) Personal history of other diseases of di gestive system Primary osteoarthritis involving multipl e joints documented in this encounter Discontinued Medications Medication Sig Discontinue Reason Start Date End Date tamsulosin (FLOMAX) 0.4 mg Take 1 Cap by 02/11/2018 02/21/2018 capsule mouth daily for 30 days. predniSONE (DELTASONE) 1 Take 5 Tabs by Reorder 02/04/2018 1 mg tablet mouth daily. Decrease dose by 0.5mg every 3 weeks- Current dose 5mg daily omeprazole (PRILOSEC) 20 Take 1 Cap by Reorder 01/24/2018 mg capsuleIndications: mouth daily. History of gastroesophageal reflux (GERD) meloxicam (MOBIC) 15 mg Take 0.5-1 Tabs by Reorder 01/24/2018 02/21/2018 tabletIndications: Primary mouth daily. 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 dextroamphetamine-amphetam Take 1 Tab by Reorder 01/21/2018 02/21/2018 ine (ADDERALL) 15 mg mouth daily. Daily tablet Max: 15 mg documented as of this encounter Care Teams Coiler Relationship Specialty Start Date End Date Mere Gonzales MD PCP - General 10/05/17 07/30/20 [address] [place] [address] documented as of this encounter
--- OUTSIDE RECORDS SUMMARY | 2021-11-28 01:53 | XMS_ITS | Encounter Summary ---
:1965 Author Organization [facility] Address [address] [place] [address] Care Team Providers Name Role Phone Mere Gonzales MD Primary Care Provider Encounter Details Date Type Department Care Team Description 02/11/2018 Hospital Encounter [facility] [place] MD [place] [address] [facility] [address] [phone] Pavilion, [address] [place] [address] (Wo rk) Social History Tobacco [...] as of this encounter Discharge Diagnoses Diagnosis N20.0 Calculus of kidney-N20.0[ICD-10-CM ] documented in this encounter Medications at Time [...] every 3 weeks- Current dose 5mg daily tamsulosin (FLOMAX) 0.4 mg Take 1 Cap by 30 Cap 0 201702/21/2018 capsule mouth daily for 30 days. UNABLE TO FIND Med Name: Tiffanie 0 05/24 documented as of this encounter Discharge Disposition Disposition Code Departure Means Destination Auto Discharge Home documented in this encounter Plan of Treatment Not on filedocumented as of this encounter Visit Diagnoses Not on filedocumented in this encounter Care Teams Valet Attendant Relationship Specialty Start Date End Date Mere Gonzales MD PCP - General 10/05/17 07/30/20 [address] [place] [address] documented as of this encounter
--- OUTSIDE RECORDS SUMMARY | 2021-11-28 01:53 | XMS_ITS | Encounter Summary ---
:1965 Author Organization [facility] Address [address] [place] [address] Care Team Providers Name Role Phone Mere Gonzales MD Primary Care Provider Encounter Details Date Type Department Care Team Description 01/12/2018 Hospital Encounter [facility]- Angélica Gonzales, [facility] [address] [address] [place], [place] [phone] (Wo rk) Social History Tobacco Use Types [...] as of this encounter Discharge Diagnoses Diagnosis Z12.31 Encounter for screening mammogram for malignant neoplasm of breast-Z12.31[ICD-10-CM] documented in this encounter Medications at Time of Discharge Medication Sig Dispensed Refills Start Date End Date amLODIPine (NORVASC) 5 Take 1 Tab by mouth 30 Tab 2 11/0 10/201701/28/2018 mg tablet daily. cephALEXin (KEFLEX) 250 Take 1 Cap by mouth 12 Cap 0 11/201702/03/2018 mg capsule every 6 hours for 3 days. cephALEXin (KEFLEX) 250 Take 1 Cap by mouth 12 Cap 0 11/201701/31/2018 mg capsule every 6 hours for 3 days. clobetasol (TEMOVATE) Apply topically 2 0 01/24/2018 0.05 % ointment times daily. cyanocobalamin (VITAMIN Take 500 mcg by mouth 0 08/29/2021 B-12) 500 mcg tablet daily. dextroamphetamine-amphet Take 1 Tab by mouth 28 Tab 0 06/18/2018 amine (ADDERALL) 15 mg daily for 28 days. tablet Daily Max: 15 mg dextroamphetamine-amphet Take 1 Tab by mouth 28 Tab 0 02/21/2018 amine (ADDERALL) 15 mg daily. Daily Max: 15 tablet mg dextroamphetamine-amphet Take 1 Tab by mouth 28 Tab 0 06/18/2018 amine (ADDERALL) 15 mg daily for 28 days. tablet Daily Max: 15 mg ergocalciferol, vitamin Take by mouth. 0 08/05/2020 D2, (VITAMIN D ORAL) HYDROmorphone (DILAUDID) Take 1 Tab by mouth 5 Tab 0 02/07/2018 2 mg tablet every 8 hours as needed for Pain. Daily Max: 6 mg hydrOXYzine (ATARAX) 25 Take 1 Tab by mouth 90 Tab 3 06/201707/21/2018 mg tablet every evening. LAXATIVE, BISACODYL, Take by mouth. 0 02/07/2018 ORAL magnesium oxide (MAG-OX) Take 400 mg by mouth 0 08/05/2020 400 mg (241.3 mg daily. magnesium) tablet ondansetron (ZOFRAN-ODT) Take 1 Tab by mouth 11 Tab 0 02/07/2018 4 mg disintegrating every 8 hours as tablet needed for Nausea. oxybutynin (DITROPAN-XL) Take 1 Tab by mouth 90 Tab 3 09/14/2018 5 mg CR tablet daily. polyethylene glycol Instructions mailed 4000 mL 0 018 01/24/2018 (GOLYTELY;NULYTELY) once procedure [id number] scheduled. Questions: gram suspension [facility] Gastroenterology: [phone] or GI Doctor's Office. predniSONE (DELTASONE) 1 Take 4 Tabs by mouth 120 Tab 0 0 10/29/2017 02/04/2018 mg tablet daily. Total dose 9 mg(+5mg tab) UNABLE TO FIND Med Name: Blake Benavidez 0 01/28/2018 81 MG documented as of this encounter Discharge Disposition Disposition Code Departure Means Destination Auto Discharge Home documented in this encounter Plan of Treatment Not on filedocumented as of this encounter Visit Diagnoses Not on filedocumented in this encounter Care Teams Consumer Loan Specialist Relationship Specialty Start Date End Date Mere Gonzales MD PCP - General 10/05/17 07/30/20 [address] [place] [address] documented as of this encounter
--- OUTSIDE RECORDS SUMMARY | 2021-11-28 01:53 | XMS_ITS | Encounter Summary ---
:1965 Author Organization [facility] Address [address] [place] [address] Care Team Providers Name Role Phone Mere Gonzales MD Primary Care Provider Reason for Visit Reason Onset Date Comments Medication Management 02/18/2018 Encounter Details Date Type Department Care Team Description 02/18/2018 Telephone [facility] Cheryl Sims on Management Total Joint Program - MD Artur Samayoa [address] [place], [place] [address] [place], [place] [phone] Social History Tobacco Use Types Packs/Day [...] this encounter Miscellaneous Notes Telephone Encounter - Silvina Núñez - 02/21/2018 1005 EST Pt called and LM saying she is feeling alittle Better. She Reports she is having problems with her cell phone and has missed calls from us and Dr Hogan. Nurse lm to call us back on nurses line to touch base elephone Encounter - Silvina Núñez - 02/21/2018 0941 EST Lm for pt to call us back and let staff know how she is doing elephone Encounter - Fidelina Engle, GABY - 02/18/2018 0845 EST Spoke with pt who stated her cell is best to be reached at this moment. I told Dr Hogan and she tried but pt has not been answering her phone and messages have been left. Dr Hogan stated pt is okayto continue the gabapentin as Dr Rajput recommended. If that does not seem to help the vaginal valium is another option. Telephone Encounter - Samantha Davila - 02/18/[address] Hogan call. She left 2 phone # to try today. Cell is [phone] or work [phone]. Also wanted to reiterate that insurance expires on 02/21/18 so whatever is going to happen needs to happen before that. documented in this encounter Plan of Treatment Not on filedocumented as of this encounter Visit Diagnoses Not on filedocumented in this encounter Care Teams Finance Assistant Relationship Specialty Start Date End Date Mere Gonzales MD PCP - General 10/05/17 07/30/20 [address] [place] [phone] documented as of this encounter
--- OUTSIDE RECORDS SUMMARY | 2021-11-28 01:53 | XMS_ITS | Encounter Summary ---
:1965 Author Organization [facility] Address [address] [place] [address] Care Team Providers Name Role Phone Mere Gonzales MD Primary Care Provider Encounter Details Date Type Department Care Team Description 01/24/2018 Phlebotomy Only [place] Bioassayist, Kat reynolds osteoarthritis involving multiple joints; - [facility] Outpatient Raynaud's disease without ga ngrene [address], [place] [id number] Social History Tobacco Use Types Packs/Day Years [...] Name Priority Date/Time Associated Diagnosis Comme nts SSB ANTIBODIES BY Routine 01/24/2018 11:47 Raynaud's disease R esults for this HEMALATHA EST without gangrene procedure a re in the results section. SSA ANTIBODIES BY Routine 01/24/2018 11:47 Raynaud's disease R esults for this HEMALATHA EST without gangrene procedure a re in the results section. SM (PABON) ANTIBODY Routine 01/24/2018 11:47 Raynaud's disease Results for this EST without gangrene procedure a re in the results section. ARTHRITIS 1 Routine 01/24/2018 11:47 Raynaud's disease Result s for this EST without gangrene procedure a re in the results section. TRAINING AND DEVELOPMENT DIRECTOR ANTIBODIES BY Routine 01/24/2018 11:47 Raynaud's disease R esults for this HEMALATHA EST without gangrene procedure a re in the results section. SCL 70 ANTIBODY, IGG, Routine 01/24/2018 11:47 Raynaud's disea se Results for this SERUM EST without gangrene procedure a re in the results section. ANTI DNA (DOUBLE Routine 01/24/2018 11:47 Raynaud's disease Re sults for this STRANDED) EST without gangrene procedure a re in the results section. COMPLETE BLOOD COUNT Routine 01/24/2018 11:47 Raynaud's diseas e Results for this AND DIFFERENTIAL EST without gangrene procedu re are in the results section. C REACTIVE PROTEIN Routine 01/24/2018 11:47 Primary osteoarthr itis Results for this EST involving multiple procedure are in joints the results Raynaud's disease section. without gangrene COMPREHENSIVE Routine 01/24/2018 11:47 Raynaud's disease Resul ts for this METABOLIC PANEL (CMP) EST without ga ngrene procedure are in Primary osteoarthritis the r esults involving multiple section. joints documented in this encounter Results COMPREHENSIVE METABOLIC PANEL (CMP) (01/24/2018 11:47 EST) Potassium 3.9 3.5 - 5.0 [facility] mEq/L [facility] Sodium 137 136 - 145 [facility] mEq/L [facility] Chloride 100 96 - 110 [facility] mEq/L [facility] CO2 30 22 - 32 mEq/L [facility] Total Alkaline 66 38 - 126 U/L [facility] Phosphatase [facility] Bilirubin, Total <0.5 <1.4 mg/dl [facility] AST 24 15 - 46 U/L [facility] ALT 28 <53 U/L [facility] Albumin 4.4 3.4 - 4.9 [facility] g/dl [facility] Total Protein 6.9 6.3 - 8.2 [facility] g/dl [facility] Creatinine 0.68 0.52 - 1.04 [facility] mg/dl [facility] GFR, Calculated 102 >60 [facility] Comment: ml/min/1.73m2 [facility] eGFR calculated using CKD-EPI equation for SERVICES non Americans. Multiply eGFR by 1.16 for Americans. BUN 20 10 - 26 mg/dl [facility] Calcium 9.8 8.5 - 10.5 [facility] mg/dl [facility] Calculated Calcium 9.5 8.5 - 10.5 [facility] mg/dl [facility] Glucose, Serum 83 70 - 100 [facility] mg/dl [facility] Fasting? No [facility] Specimen Blood specimen (specimen) - Blood Performing Organization Address City/State/ZIP Code Phon e Number [facility]ORY [address] [place] [address] SERVICES (ABNORMAL) COMPLETE BLOOD COUNT AND DIFFERENTIAL (01/24/2018 11:47 EST) Pathologist Sig nature WBC 7.32 4.0 - 12.4 [facility] K/cmm LABORATORY SERVICES RBC 4.33 3.86 - 5.04 [facility] M/formerly [facility] LABORATORY SERVICES Hemoglobin 13.7 11.6 - 15.2 [facility] gm/dl LABORATORY SERVICES HCT 39.5 34.9 - 44.4 % [facility] LABOR[facility]ORY SERVICES MCV 91 81 - 98 fl [facility] SERVICES MCH 31.6 26.7 - 33.3 pg [facility] LABOR[facility]ORY SERVICES MCHC 34.7 32.1 - 35.9 [facility] gm/dl LABORATORY SERVICES RDW-CV 12.6 <14.7 % [facility] LABORATORY SERVICES RDW-SD 42.2 <50.4 fl [facility] LABORATORY SERVICES PLT 391 (H) 141 - 377 [facility] MPV 9.1 (L) 9.5 - 12.7 fl [facility] LABORATORY SERVICES Neutrophils 70.0 % [facility] LABORATORY SERVICES Lymphocytes 21.2 % [facility]ORY SERVICES Monocytes 6.6 % [facility] LABOR[facility]ORY SERVICES Eosinophils 1.2 % [facility] LABOR[facility]ORY SERVICES Basophils 0.7 % [facility] LABORATORY SERVICES Immature Grans 0.3 % [facility] LABORATORY SERVICES ABS Neutrophils 5.13 2.20 - 8.85 [facility] LABORATORY SERVICES ABS Lymphs 1.55 1.09 - 3.30 [facility] LABORATORY SERVICES ABS Monocytes 0.48 0.1 - 0.8 K/[facility] LABORATORY SERVICES ABS Eosinophils 0.09 0.03 - 0.61 [facility] LABORATORY SERVICES ABS Basophils 0.05 0.01 - 0.11 [facility] LABORATORY SERVICES ABS Immature Grans 0.02 0 - 0.06 K/[facility] LABORATORY SERVICES Type of Diff: Automated [facility]OR[facility]ORY SERVICES Specimen Blood specimen (specimen) - Blood Performing Organization Address [facility] e [facility] LABORATORY [address] [place] [address] SERVICES ARTHRITIS 1 (01/24/2018 11:47 EST) Rheumatoid Factor 11 <12.5 IU/mL [facility] LABORATORY SERVICES INEZ Interpretation Negative Negative [facility] Comment: LABORATORY No titer performed, INEZ screen is negative. SERVICES Results were obtained with the INOVA NOVA Lite HEp-2 A NA kit by indirect immunofluorescence. Specimen Blood specimen (specimen) - Blood Performing Organization Address [facility] Phon e Number [facility] LABORATORY [address] [place] [address] SERVICES SM (PABON) ANTIBODY (01/24/2018 11:47 EST) Sm (Pabon) 2.4 <20 Units [facility] Antibody Comment: LABORATORY SERVICES Negative: <20 [...] specimen (specimen) - Blood Performing Organization Address [facility] LABORATORY [address] [place] [address] SERVICES ANTI DNA (DOUBLE STRAND) (01/24/2018 11:47 EST) Pathologist Sig nature Anti DNA (DS) <12.3Comment: <30 IU/mL [facility] Results were LABORATORY SERVICES obtained with the INOVA QUANTA Lite dsDNA SC HEMALATHA assay. Specimen Blood specimen (specimen) - Blood Performing Organization Address [facility] LABORATORY [address] [place] [address] SERVICES SSA ANTIBODIES BY HEMALATHA (01/24/2018 11:47 EST) Pathologist Sig nature SSA Antibody 3.2 <20 Units [facility] Comment: LABORATORY SERVICES Negative: <20 Units [...] specimen (specimen) - Blood Performing Organization Address [facility] LABORATORY [address] [place] [address] SERVICES TRAINING AND DEVELOPMENT DIRECTOR ANTIBODIES BY HEMALATHA (01/24/2018 11:47 EST) Pathologist Sig nature TRAINING AND DEVELOPMENT DIRECTOR Antibody 1.4 <20 Units [facility] Comment: LABORATORY SERVICES Negative: <20 Units Weak Positive: 20 - 39 Units Moderate Positive: 40 - 80 Units Strong Positive: >80 Units Results were obtained with the [employer] QUANTA Lite TRAINING AND DEVELOPMENT DIRECTOR E HERRERA. TRAINING AND DEVELOPMENT DIRECTOR Values obtained with different manufacturers' assay methods m ay not be used interchangeably. The magnitude of the re ported IgG levels cannot be correlated to an endpoint titer. A positive result in the QUANTA Lite TRAINING AND DEVELOPMENT DIRECTOR HEMALATHA indicat es the presence of antibodies reactive with the TRAINING AND DEVELOPMENT DIRECTOR/Sm complex but cannot distinguish between anti-Sm and anti-TRAINING AND DEVELOPMENT DIRECTOR activity. Specimen Blood specimen (specimen) - Blood Performing Organization Address [facility] e Number [facility] LABORATORY [address] [place] [address] SERVICES SSB ANTIBODIES BY HEMALATHA (01/24/2018 11:47 EST) Pathologist Sig nature SSB Antibody 2.7 <20 Units [facility] Comment: LABORATORY SERVICES Negative: <20 Units Weak Positive: 20 - 39 Units Moderate Positive: 40 - 80 Units Strong Positive: >80 Units Results were obtained with the [employer] QUANTA SS-B HEMALATHA . SS-B values obtained with different manufacturers' assay methods may not be used interchangeably. The magnitude of the reported IgG levels cannot be cor related to an endpoint titer. Specimen Blood specimen (specimen) - Blood Performing Organization Address [facility] LABORATORY [address] [place] [address] SERVICES SCL 70 ANTIBODY, IGG, SERUM (01/24/2018 11:47 EST) Scleroderma Ab, SCL <0.2Comment: <1.0 [facility] 70 Ab Performed by: (Negative) U LABORATORY [facility] Labs: SERVICES [facility] [address], [place] [address] Specimen Blood specimen (specimen) - Blood Performing Organization Address [facility] Number [facility] LABORATORY [address] [place] [address] SERVICES C REACTIVE PROTEIN (01/24/2018 11:47 EST) Pathologist Sig nature C Reactive Protein <7.0 <10.0 mg/L [facility] LABORATORY SERVICES Specimen Blood specimen (specimen) - Blood Performing Organization Address [facility] LABORATORY [address] [place] [address] SERVICES documented in this encounter Visit Diagnoses Diagnosis Primary osteoarthritis involving multipl e joints Raynaud's disease without gangrene documented in this encounter Care Teams Lease Out Man Relationship Specialty Start Date End Date Mere Gonzales MD PCP - General 10/05/17 07/30/[address] [place] [phone] documented as of this encounter
--- OUTSIDE RECORDS SUMMARY | 2021-11-28 01:53 | XMS_ITS | Encounter Summary ---
:1965 Author Organization [facility] Address [address] [place] [address] Care Team Providers Name Role Phone Mere Gonzales MD Primary Care Provider Reason for Visit Reason Onset Date Comments Letter for School/Work 03/04/2018 received by janes townsend Encounter Details Date Type Department Care Team Description 03/04/2018 Telephone [facility] Christine Alvares MD Letter for School/Work Hematology & Oncology [address] [facility] (received by patient) - [facility], [address], [address] [place], [place] [address] [place] [address] [phone] (Wo rk) Social History Tobacco Use [...] this encounter Miscellaneous Notes Telephone Encounter - Christine Lyon V. - 03/04/2018 1055 EST Patient has questions about a letter received from the nurse documented in this encounter Plan of Treatment Not on filedocumented as of this encounter Visit Diagnoses Not on filedocumented in this encounter Care Teams Patient Support Specialist Relationship Specialty Start Date End Date Mere Gonzales MD PCP - General 10/05/17 07/30/20 [address] [place] [phone] documented as of this encounter
--- OUTSIDE RECORDS SUMMARY | 2021-11-28 01:53 | XMS_ITS | Encounter Summary ---
:1965 Author Organization [facility] Address [address] [place] [address] Care Team Providers Name Role Phone Mere Gonzales MD Primary Care Provider Reason for Visit Reason Onset Date Comments Medications Refill 05/17/2018 Encounter Details Date Type Department Care Team Description 05/17/2018 Refill [facility] Adult Mere Gonzales, Medications Refill Primary Care - Tam HERNÁNDEZ [address] [place] [address] [place], [place] [phone] (Wo rk) Social History Tobacco Use [...] Take 1 tablet by 30 tablet 0 06/13/2018 ine (ADDERALL) 15 mg mouth daily for 30 tablet days. Daily Max: 15 mg documented in this encounter Miscellaneous Notes Telephone Encounter - Marissa Howard RN - 05/17/2018 1647 EDT Call to Patient Relayed message per Janet Patient expressed understanding with no barriers No additional questions or concerns to be addressed at this time appt scheduled for 06/20 elephone Encounter - Mere Gonzales MD - 05/17/2018 1625 EDT Didn't finish my note earlier, I expect to see her in May or June at the latest for regular f/u elephone Encounter - Mere Gonzales MD - 05/17/2018 1603 EDT Please remind pt I require q3mo visits. I knew she was running out of insurance a few months ago so I gave her more than usual,but that is not long filler cigar roller machine. I have refilled for the typical amount of 30 tabs and I expect to see her elephone Encounter - Marissa Howard RN - 05/17/2018 1548 EDT Will pend for Dr Abernathy elephone Encounter - Gilda Goodson - 05/17/2018 1541 EDT Medication(s) Requested: dextroamphetamine-amphetamine (ADDERALL) 15 mg tablet [[id number]] DISCONTINUED Order Details Dose: 15 mg Route: oral Frequency: DAILY Dispense Quantity: 60 tablet Refills: 0 Fills remaining: -- ?? Sig: Take 1 Tab by mouth daily. ??Daily Max: 15 mg ?? Discontinue Date: 04/25/2018 17:03 Discontinue User: Kelli Ware MD Discontinue Reason: Reorder Written Date: 02/21/18 Expiration Date: 05/22/18 Start Date: 02/21/18 End Date: 04/25/18 Earliest Fill Date: 02/21/18 ?? [facility] Is patient out [facility]? Yes Last Refill Date: 7 pills 05/02/18 Last Visit Date with Ordering Provider: 02/21/19 Next Non-Acute Visit Date Scheduled with Care Team: No. Gilda Goodson 05/17/2018 15:41 documented in this encounter Plan of Treatment Not on filedocumented as of this encounter Visit Diagnoses Not on filedocumented in this encounter Care Teams Specification Writer Relationship Specialty Start Date End Date Mere Gonzales MD PCP - General 10/05/17 07/30/20 [address] [place] [phone] documented as of this encounter
--- OUTSIDE RECORDS SUMMARY | 2021-11-28 01:53 | XMS_ITS | Encounter Summary ---
:[address] [facility] Address [address] [place] [address] Care Team Providers Name Role Phone Mere Gonzales MD Primary Care Provider Reason for Visit Reason Onset Date Comments Other 03/16/2018 Encounter Details Date Type Department Care Team Description 03/16/2018 Telephone [facility] Pelvic Fidelina Engle RN Other Medicine and Reconstructive Surgery - [facility] [address] [place] [address] Social History Tobacco Use Types [...] Telephone Encounter - Fidelina Engle, RN - 03/16/2018 1643 EST Pt is calling to say she had tried getting in touch with Dr Hogan but was having phone issues at the beginning of the month. Her numbers at this time are [phone] or #[phone]. I will messageDr Hogan to see if she would like to call pt or have a nurse call her - in regards to her pain issues (also seeing Dr Rajput). documented in this encounter Plan of Treatment Not on filedocumented as of this encounter Visit Diagnoses Not on filedocumented in this encounter Care Teams Cone Winder Relationship Specialty Start Date End Date Mere Gonzales MD PCP - General 10/05/17 07/30/20 [address] [place] [phone] documented as of this encounter
--- OUTSIDE RECORDS SUMMARY | 2021-11-28 01:53 | XMS_ITS | Encounter Summary ---
:1965 Author Organization [facility] Address [address] [place] [address] Care Team Providers Name Role Phone Mere Gonzales MD Primary Care Provider Encounter Details Date Type Department Care Team Description 01/24/2018 Results Only [facility] Napoleon Carmona Chi, MD Imaging Rheumatology & [address] [place] [address] venue Immunology - [facility], [facility], Level [address] [place] [phone] (Wo rk) Social History Tobacco Use Types [...] Name Priority Date/Time Associated Diagnosis Comme nts SHOULDER 2 OR MORE 01/24/2018 11:30 Resul ts for this VIEWS EST procedure are i n the results section. documented in this encounter Results SHOULDER 2 OR MORE VIEWS (01/24/2018 11:30 EST) Anatomical Region Laterality Modality Other Specimen Narrative [facility] - 01/24/2018 15:38 EST SHOULDER 2 [...] Phon e Number [facility] documented in this encounter Visit Diagnoses Not on filedocumented in this encounter Care Teams Interactive Account Manager Relationship Specialty Start Date End Date Mere Gonzales MD PCP - General 10/05/17 07/30/20 [address] [place] [phone] documented as of this encounter
--- OUTSIDE RECORDS SUMMARY | 2021-11-28 01:53 | XMS_ITS | Encounter Summary ---
:1965 Author Organization [facility] Address [address] [place] [address] Care Team Providers Name Role Phone Mere Gonzales MD Primary Care Provider Reason for Visit Reason Comments Pre-op Exam for Dr. Mercer for interstim device removal on 01/31/18 Medication Management Encounter Details Date Type Department Care Team Description 01/28/2018 Office Visit [facility] Zenobia Hawkins Pre-opera tive examination (Primary Dx); Adult Primary Care - NELSON Sellers Urinary urgency; [place] Factor V Leiden ([facility]); [address] PMR (polymyalgia rheumatica) ([facility]); [place] [address] Need for influenza vaccinati on [phone] Social History Tobacco Use Types Packs/Day Years [...] Sign Reading Time Taken Comments Blood Pressure 110/64 01/28/2018947 EST Pulse 64 01/28/201848 EST Temperature 36.8 ??C (98.3 ??F) 01/28/201848 EST Respiratory Rate 12 01/28/2018947 EST Oxygen Saturation - - Inhaled Oxygen Concentration - - Weight 50.9 kg (112 lb 3.2 oz) 01/28/2018947 EST Height 160 cm (5' 3) 01/28/2018947 EST Body Mass Index 19.88 01/28/2018947 EST documented in this encounter Functional Status [...] Take 1 Tab by mouth 90 Tab 1 1 03/31/2017 04/25/2018 tablet daily. documented in this encounter Progress Notes Zenobia Hawkins PA - 01/28/2018 0945 EST Preoperative H&P [...] Moderate episode of recurrent major depressive disorder ([facility]) 11/26/2017 ??? Chronic abdominal pain 10/29/2017 ??? Constipation 10/29/2017 ??? PMR (polymyalgia rheumatica) ([facility]) 10/29/2017 ??? Raynaud phenomenon 10/29/2017 ??? Frequent UTI 10/29/2017 ??? Factor V Leiden ([facility]) 10/29/2017 ??? 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 Chronic abdominal pain ??? Factor V Leiden ([facility]) 10/29/2017 ??? Frequent UTI 10/29/2017 ??? PMR (polymyalgia rheumatica) ([facility]) ??? Post herpetic neuralgia ??? Raynaud phenomenon [...] days. This has been prescribed by her lead investigator. YAZAN Dalal 01/28/2018 9:47 Revised Cardiac Risk Index (Amaro - six independent predictors of cardiac complications): 1. High risk surgery (vascular, intraperitoneal, intrathoracic) 2. History of CAD (history of DE or a positive ETT, current ischemic chest [...] Prevention of Infective Endocarditis Guidelines From the [place] [employer]: A Guideline From the [place] [employer] Rheumatic Fever, Endocarditis, and Kawasaki DiseaseCommittee, [place] on Cardiovascular Disease in the [place], and the [place] on Clinical Cardiology, Co uncil on Cardiovascular Surgery and Anesthesia, and the Quality of Care and Outcomes Research Interdisciplinary Working Group. Please see Circulation. 2007;116:3246-8964 for the detailed indications. Shweta-operative betablocker (BB) [...] for noncardiac surgery. A report of the [place] [employer] Foundation/[place] [employer] Task Force on Practice Guidelines. Please see J Am Mushtaq Cardiol. 2009; Jan 15;54(22):c18-v482 for the detailed indications. documented in this encounter Plan of Treatment Not on filedocumented as of this encounter Visit Diagnoses Diagnosis Pre-operative examination - Primary Preoperative examination, unspecified Urinary urgency Urgency of urination Factor V Leiden ([facility]) ([facility]) Primary hypercoagulable state PMR (polymyalgia rheumatica) ([facility]) ( [facility]) Polymyalgia rheumatica Need for influenza vaccination Need for prophylactic vaccination and in oculation against influenza documented in this encounter Discontinued Medications Medication Sig Discontinue Reason Start Date End Date UNABLE TO FIND Med Name: Baby Alternate therapy 2017 Asprin 81 MG amLODIPine (NORVASC) 5 Take 1 Tab by mouth Reorder 12/31/2017 01/28/2018 mg tablet daily. documented as of this encounter Historical Medications This list may reflect changes made after this encounter. Medication Sig Dispensed Refills Start Date End Date UNABLE TO FIND Med Name: Gingko 0 05/24 aspirin (ASPIRIN LOW Take 81 mg by mouth 0 09/16/2020 DOSE) 81 mg EC tablet daily. added in this encounter Orders Immunization/Injection Count Last Ordered Date First O rdered Date INFLUENZA VACCINE QUAD (FLULAVAL/FLUARIX) 1 2017 PF 0.5 ML IM (6 MOS+) documented in this encounter Care Teams Consumer Relations Complaint Clerk Relationship Specialty Start Date End Date Mere Gonzales MD PCP - General 10/05/17 07/30/20 [address] [place] [phone] documented as of this encounter
--- OUTSIDE RECORDS SUMMARY | 2021-11-28 01:53 | XMS_ITS | Encounter Summary ---
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 Gilda Rajput Vul vodynia (Primary Dx); Pelvic Medicine and MD Johanna Hematuria, unspecified type; Reconstructive Surgery - [address] [place] [address] hematuria Medical Office [place] [address] [address] [place] [address] [facility] [phone] [place] [address] Social History Tobacco Use Types Packs/Day Years [...] Time Taken Comments Blood Pressure 125/81 02/07/2018 0938 EST Pulse 79 02/07/2018 0938 EST Temperature - - Respiratory Rate - - Oxygen Saturation - - Inhaled Oxygen Concentration - - Weight 51.3 kg (113 lb) 02/07/2018 0938 EST Height 160 cm (5' 3) 02/07/2018 0938 EST Body Mass Index 20.02 02/07/2018 0938 EST [...] as of this encounter Discharge Diagnoses Diagnosis N94.819 Vulvodynia, unspecified-N94.819[ ICD-10-CM] R31.9 Hematuria, unspecified-R31.9[ICD-1 0-CM] R31.0 Gross hematuria-R31.0[ICD-10-CM] documented in this encounter Discharge Disposition Disposition Code Departure Means Destination Auto Discharge documented in this encounter Progress Notes Gilda Rajput MD - 02/07/2018 0930 EST Pt presents for a consult from Dr. Hogan for vulvar pain. This started in November with her ureteral stent removal. It starts at a point L mid labia majora and radiates to the L groin. The pain is always there at about a 4/10 but increases in intensity periodically for no particular reason. SI is not comfortable because of it but it doesn't make it any worse. 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 Last 01/2015. She continues to get periods though they are irregular. Vas is their BC. She was recently dx'd with fibroids- asymptomatic. Currently on low dose prednisone. And on an anticoagulant periop. UA completed today per Dr. Hogan for gross hematuria. 3+ blood so sent for micro and culture. Med hx, surg hx, fam hx social hx reviewed in prism. ROS: back is sore from where her interstim was recently removed. PE: well appearing female BP 125/81 Pulse 79 Ht 160 cm (63) Wt 51.3 kg (113 lb) BMI 20.02 kg/m?? Vulva- nl, there is some tenderness at the mid L labia majora. No palpable lesion. Spec - nl BM- enlarged irregular uterus, c/w her known fibroids. No adnexal masses or tenderness. Discussed a localized injection into the L labia majora of sensorcaine and kenalog. Pt agreed. Procedure: pt consented. Betadine prep. 2 cc of sensorcaine 0.5% and 20 mg of kenalog (1/2 cc of kenalog 40) injected into the region of the pain in the L labia majora. No complications. Pt tolerated well. sensorcaine 0.5% lot # [id number], Exp 11/13 Kenalog-40: Lot # [id number], Exp 01/2019 A: localized vulvodynia Injection completed today P: rec continue them weekly for 3 total to start. RV 1 week. documented in this encounter Plan of Treatment Not on filedocumented as of this encounter Procedures Procedure Name Priority Date/Time Associated Diagnosis Comme nts URINE CULTURE IF Routine 02/07/2018 9:52 EST Gross hematuria R esults for this POSITIVE procedure are i n the results section. URINE CHEMICAL Routine 02/07/2018 9:52 EST Gross hematuria Res ults for this (DIP) & SEDIMENT procedure a re in (MICRO) WITHOUT the results REFLEX TO CULTURE section. POCT URINE Routine 02/07/2018 9:46 EST Hematuria, Results for this DIPSTICK, CLINITEK unspecified type proce dure are in the results section. documented in this encounter Results (ABNORMAL) UA, CHEMICAL AND SEDIMENT ANALYSIS (DIPSTICK AND MICROSCOPIC) (02/07/2018 9:52 EST) Color, UA Yellow [facility] Clarity, UA Hazy [facility] Glucose, UA Neg Neg [facility] Bilirubin, UA Neg Neg [facility] Ketones, UA Neg Neg [facility] Refractometer 1.021 1.001 - 1.035 [facility] SG,Urine CENTER LABORATORY SERVICES Blood, UA 2+ (A) [facility] LABORATORY SERVICES pH, UA 8.0 4.6 - 8.0 [facility] Protein, UA Trace (A) [facility] LABORATORY SERVICES Urobilinogen, UA Normal Normal [facility] E.U./dl [facility] SERVICES Nitrite, UA Neg [facility]ATORY SERVICES Leuk Esterase Neg [facility] SERVICES UA Method Used [facility] Comment: CENTER LABORATORY Testing performed using SERVICES Budge [id number]. Urine RBC Count >50 (A) 0 to 2 /HPF [facility] Automated [facility] SERVICES Urine WBC Count 0 to 3 0 to 3 /HPF [facility] Automated [facility] Urine Squamous None seen None seen [facility] Epithelial Cell /LPF [facility] Count, Automated SERVICES Urine Hyaline Casts, < or = 10 < or = 10 [facility] Automated /LPF [facility] SERVICES Urine Bacteria None seen None seen [facility] Count, Automated [facility] SERVICES UA Comment Sediment results [facility] Comment: CENTER LABORATORY are unreliable on SERVICES urines unrefrig >2hrs or refrig >8hrs. Specimen Urine (substance) - Urine Performing Organization Address City/[facility]/ZIP Code Phon e Number [facility] [address] [place] [address] SERVICES URINE CULTURE IF UA POSITIVE - NON POCT URINALYSIS ONLY (02/07/2018 9:52 EST) Culture if Culture not [facility] Indicated indicated by LABORATORY SERVICES urinalysis results. Specimen Urine (substance) - Other Performing Organization Address City/State/ZIP Code Phon e Number [facility] [address] [place] [phone] SERVICES (ABNORMAL) POCT URINE DIPSTICK, CLINITEK (02/07/2018 9:46 EST) Color YELLOW Yellow [facility] Clarity, UA CLOUDY Clear [facility] Glucose Neg Neg [facility] Bilirubin Neg [facility] SERVICES Ketones Trace (A) [facility] LABORATORY SERVICES Specific [place] 1.015 1.001 - 1.035 [facility] Blood 3+ (A) Neg [facility] pH 8.5 (H) 4.6 - 8.0 [facility] Protein Trace (A) Neg [facility] Urobilinogen 0.2 0.2 - 1.0 [facility] mg/dL LABORATORY SERVICES Nitrite Neg Neg [facility] Leuk Esterase Neg Neg [facility] salesperson art objects ID [id number]: [facility] Test performed at [facility] Specimen Urine (substance) - Urine Performing Organization Address City/State/ZIP Code Phon e Number [facility] [address] [place] [address] SERVICES documented in this encounter Visit Diagnoses Diagnosis Vulvodynia - Primary Vulvodynia, unspecified Hematuria, unspecified type Gross hematuria documented in this encounter Discontinued Medications Medication Sig Discontinue Reason Start Date End Date rivaroxaban (XARELTO) 10 Take 1 Tab by mouth 8 02/07/2018 mg tablet daily. tabletIndications: Factor V Leiden ([facility]) ([facility]) documented as of this encounter Care Teams Nut Dehydrator Operator Relationship Specialty Start Date End Date Mere Gonzales MD PCP - General 10/05/17 07/30/20 [address] [place] [address] documented as of this encounter
--- OUTSIDE RECORDS SUMMARY | 2021-11-28 01:54 | XMS_ITS | Encounter Summary ---
:1965 Author Organization [facility] Address [address] [place] [address] Care Team Providers Name Role Phone Mere Gonzales MD Primary Care Provider Encounter Details Date Type Department Care Team Description 12/29/2017 Hospital Encounter [facility]- Gaurav Ren [facility] MD [place] [address] [phone] [place], [address] [place] [address] (Wo rk) Social History Tobacco [...] as of this encounter Discharge Diagnoses Diagnosis R35.0 Frequency of micturition-R35.0[ICD -10-CM] documented in this encounter Medications at Time of Discharge Medication Sig Dispensed Refills Start Date End Date amLODIPine (NORVASC) 5 Take 1 Tab by mouth 30 Tab 2 1006/201712/31/2017 mg tablet daily. cephALEXin (KEFLEX) 250 Take [...] procedure [id number] -5.86 scheduled. Questions: gram suspension [facility] Gastroenterology: [phone] or GI Doctor's Office. predniSONE (DELTASONE) 1 Take 4 Tabs by mouth 120 Tab 0 0 10/29/2017 02/04/2018 mg tablet daily. Total dose 9 mg(+5mg tab) UNABLE TO FIND Med Name: Baby Asprin 0 01/28/2018 81 MG documented as of this encounter Discharge Disposition Disposition Code Departure Means Destination Home or Self Correction documented in this encounter Plan of Treatment Not on filedocumented as of this encounter Procedures Procedure Name Priority Date/Time Associated Diagnosis Comme nts MULTIPLE DOC ORDERS Routine 12/29/2017 17:48 Resu lts for this EST procedure are i n the results section. documented in this encounter Results MULTIPLE DOC ORDERS (12/29/2017 17:48 EST) Multiple Doc This report contains lab results ordered [facility] Orders Comment: LABORATORY by another provider which were collected and SERVICES processed simultaneously with the orders you requested. If you have any questions, please call Customer Service at [phone]. Specimen Other Performing Organization Address City/State/ZIP Code Phon e Number [facility] [address] [place] [address] SERVICES documented in this encounter Visit Diagnoses Not on filedocumented in this encounter Care Teams Mobile Electronics Installer Relationship Specialty Start Date End Date Mere Gonzales MD PCP - General 10/05/17 07/30/20 [address] [place] [address] documented as of this encounter
--- OUTSIDE RECORDS SUMMARY | 2021-11-28 01:54 | XMS_ITS | Encounter Summary ---
:1965 Author Organization [facility] Address [address] [place] [address] Care Team Providers Name Role Phone Mere Gonzales MD Primary Care Provider Encounter Details Date Type Department Care Team Description 11/22/2017 Results Only [facility] Cancer Center Fany Ramey NP Hematology & Oncology - [address] [facility], [address] [place], [place] [id number] [place] [address] [phone] (Wo rk) Social History Tobacco Use [...] a physical, mental, or emotional condition, No 11/22/2017 does this person have difficulty doing errands alone such as visiting a doctor's office or shopping? Cognitive Status Response Date of Assessment Because of a physical, mental, or emotional condition, No 11/22/2017 does this person have serious difficulty concentrating, remembering, or making decisions? documented as of this encounter Plan of Treatment Not on filedocumented as of this encounter Procedures Procedure Name Priority Date/Time Associated Diagnosis Comme nts D-DIMER Routine 11/22/2017 16:25 EDT Results for this procedure are i n the results section . documented in this encounter Results (ABNORMAL) D-DIMER (11/22/2017 16:25 EDT) Pathologist Sig nature D-Dimer 285 (H) <230 ng/mL [facility] Comment: LABORATORY SERVICES CUTOFF VALUE FOR THE EXCLUSION OF DVT and PE: 230 ng/m L D-dimer units Any use of the age-adjusted cutoff value is a post-analytic modification of this FDA-approved test and is considered off-label use of the test result. [facility] laboratory does not have literature to support the validity of an age-adjusted cutoff for our specific assay. Specimen Blood Performing Organization Address City/State/ZIP Code Phon e Number [facility]ORY [address] [place] [address] SERVICES documented in this encounter Visit Diagnoses Not on filedocumented in this encounter Care Teams Cold Working Inspector Relationship Specialty Start Date End Date Mere Gonzales MD PCP - General 10/05/17 07/30/20 [address] [place] [address] documented as of this encounter
--- OUTSIDE RECORDS SUMMARY | 2021-11-28 01:54 | XMS_ITS | Encounter Summary ---
:1965 Author Organization [facility] Address [address] [place] [address] Care Team Providers Name Role Phone Mere Gonzales MD Primary Care Provider Reason for Visit Reason Onset Date Comments New Patient Visit 11/10/2017 Spoke with patient. 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 documented in this encounter Plan of Treatment Not on filedocumented as of this encounter Visit Diagnoses Not on filedocumented in this encounter Care Teams Undergraduate Advisor Relationship Specialty Start Date End Date Mere Gonzales MD PCP - General 10/05/17 07/30/20 [address] [place] [address] documented as of this encounter
--- OUTSIDE RECORDS SUMMARY | 2021-11-28 01:54 | XMS_ITS | Encounter Summary ---
:[address] [facility] Address [address] [place] [address] Care Team Providers Name Role Phone Mere Gonzales MD Primary Care Provider Encounter Details Date Type Department Care Team Description 10/29/2017 Phlebotomy Only [facility] Batch Attendant, Chron ic abdominal pain; - [facility] Healthcare maintenance; [address] [facility] Constipation, unspecified co nstipation type; [place], [place] PMR (polymyal wally rheumatica) ([facility]) [id number] Social History Tobacco Use Types Packs/Day Years [...] 10:24 EST documented as of this encounter Plan of Treatment Not on filedocumented as of this encounter Procedures Procedure Name Priority Date/Time Associated Diagnosis Comme nts THYROID CASCADE Routine 10/29/2017 10:53 Constipation, Results for this EDT unspecified procedure are i n constipation type the result s section. C REACTIVE PROTEIN Routine 10/29/2017 10:53 PMR (polymyalgia R esults for this EDT rheumatica) procedure are i n ([facility]) the results section. LIPID PROFILE Routine 10/29/2017 10:53 Healthcare Results fo r this (INCLUDES CHOLESTEROL, EDT maintenance proce dure are in TRIGLYCERIDES, HDL, the resu lts LDL) section. COMPREHENSIVE Routine 10/29/2017 10:53 Chronic abdominal Resul ts for this METABOLIC PANEL (CMP) EDT pain proced ure are in the results section. documented in this encounter Results C REACTIVE PROTEIN (10/29/2017 10:53 EDT) Pathologist Sig nature C Reactive Protein <7.0 <10.0 mg/L [facility] LABORATORY SERVICES Specimen Blood specimen (specimen) - Blood Performing Organization Address [facility] Phon e Number [facility] LABOR[facility]ORY [address] [place] [address] SERVICES THYROID CASCADE (10/29/2017 10:53 EDT) TSH 1.94 0.47 - 4.68 [facility] Comment: uIU/ml LABORATORY SERVICES TSH cascade is not recommended for patients in which pituitary or hypothalamic disorders are suspected. The results of this assay can be falsely lowered due to the consumption of Biotin. Specimen Blood specimen (specimen) - Blood Performing Organization Address [facility] Phon e Number [facility] LABORATORY [address] [place] [address] SERVICES LIPID PROFILE (INCLUDES CHOLESTEROL, TRIGLYCERIDES, HDL, LDL) (10/29/2017 10:53 EDT) Cholesterol 201 mg/dl [facility] Comment: LABORATORY Desirable:<200 SERVICES Borderline High:200-239 High:>in=222 Triglycerides 85 mg/dl [facility] Comment: LABORATORY Normal:<150 SERVICES Borderline High:150-199 High:200-499 Very High:>wb=916 HDL 98 mg/dl [facility] Comment: LABORATORY Low:<40 SERVICES Normal:40-60 Desirable: >60 LDL, Calculated 86 mg/dl [facility] Comment: LABORATORY Optimal:<100 SERVICES Near Optimal:100-129 Borderline High:130-159 High:160-189 Very High:>bq=103 Chol/HDL Ratio 2.1 [facility] LABORATORY SERVICES Fasting? No [facility] LABORATORY SERVICES Non HDL Cholesterol 103 mg/dl [facility] Comment: LABORATORY Desirable:<130 SERVICES Borderline:130-159 High: 160-189 Very High: >os=738 Specimen Blood specimen (specimen) - Blood Performing Organization Address City/[facility] Code Phon e Number [facility]ORY [address] [place] [address] SERVICES COMPREHENSIVE METABOLIC PANEL (CMP) (10/29/2017 10:53 EDT) Potassium 4.4 3.5 - 5.0 [facility] mEq/L [facility]ORY SERVICES Sodium 136 136 - 145 [facility] mEq/L [facility] SERVICES Chloride 98 96 - 110 [facility] mEq/L [facility] SERVICES CO2 29 22 - 32 mEq/L [facility]ORATORY SERVICES Total Alkaline 55 38 - 126 U/L [facility] Phosphatase [facility] SERVICES Bilirubin, Total <0.5 <1.4 mg/dl [facility] LABORATORY SERVICES AST 17 15 - 46 U/L [facility]ORATORY SERVICES ALT 25 <53 U/L [facility]ATORY SERVICES Albumin 4.2 3.4 - 4.9 [facility] g/dl [facility] SERVICES Total Protein 6.5 6.3 - 8.2 [facility] g/dl [facility] Creatinine 0.81 0.52 - 1.04 [facility] mg/dl [facility] SERVICES GFR, Calculated 84 >60 [facility] Comment: ml/min/1.73m2 [facility]ENTER LABORATORY eGFR calculated using CKD-EPI equation for SERVICES non Americans. Multiply eGFR by 1.16 for Americans. BUN 18 10 - 26 mg/dl [facility]ORATORY SERVICES Calcium 9.6 8.5 - 10.5 [facility] mg/dl [facility] SERVICES Calculated Calcium 9.4 8.5 - 10.5 [facility] mg/dl [facility] SERVICES Glucose, Serum 79 70 - 100 [facility] mg/dl [facility] SERVICES Fasting? No [facility] SERVICES Specimen Blood specimen (specimen) - Blood Performing Organization Address City/[facility] Code Phon e Number [facility] [address] [place] [address] SERVICES documented in this encounter Visit Diagnoses Diagnosis Chronic abdominal pain Abdominal pain, unspecified site Healthcare maintenance Routine general medical examination at a health care facility Constipation, unspecified constipation t ype PMR (polymyalgia rheumatica) ([facility]) ( [facility]) Polymyalgia rheumatica documented in this encounter Care Teams Nurse Aide Relationship Specialty Start Date End Date Mere Gonzales MD PCP - General 10/05/17 07/30/20 [address] [place] [address] documented as of this encounter
--- OUTSIDE RECORDS SUMMARY | 2021-11-28 01:54 | XMS_ITS | Encounter Summary ---
:1965 Author Organization [facility] Address [address] [place] [address] Care Team Providers Name Role Phone Mere Gonzales MD Primary Care Provider Reason for Visit Reason Comments Chronic Pain Fatigue Encounter Details Date Type Department Care Team Description 11/26/2017 Office Visit [facility] Mere Gonzales ent UTI (Primary Dx); Adult Primary Care - MD Barbara PMR (polymyalgia rheumatica) ([facility]); [place] [address] ADHD, predominantly inattentive type; [address] [place], Raynaud's phenomenon without gangrene; [place] [address] [place] [address] Moderate episode of recurrent major depr essive disorder ([facility]); [phone] Factor V Leiden ([facility]); (Work) Chronic abdominal pain; [phone] Need for tetanu s booster (Fax) Social History Tobacco Use Types Packs/Day Years [...] Reading Time Taken Comments Blood Pressure 110/70 11/26/2017 1452 EDT Pulse 60 11/26/2017 145 EDT Temperature 37 ??C (98.6 ??F) 11/26/2017 145 EDT Respiratory Rate 14 11/26/2017 145 EDT Oxygen Saturation - - Inhaled Oxygen Concentration - - Weight 51.3 kg (113 lb) 11/26/2017 145 EDT Height 157.5 cm (5' 2) 11/26/2017 145 EDT Body Mass Index 20.67 11/26/2017 145 EDT documented in this encounter Functional Status [...] 5 mg Take 1 Tab by mouth 30 Tab 2 1 12/31/2017 tablet daily. dextroamphetamine-amphetam Take 1 Tab by mouth 28 Tab 0 12/24/2017 06/18/2018 ine (ADDERALL) 15 mg daily for 28 days. tablet Daily Max: 15 mg dextroamphetamine-amphetam Take 1 Tab by mouth 28 Tab 0 01/21/2018 02/21/2018 ine (ADDERALL) 15 mg daily. Daily Max: tablet 15 mg dextroamphetamine-amphetam Take 1 Tab by mouth 28 Tab 0 11/26/2017 06/18/2018 ine (ADDERALL) 15 mg daily for 28 days. tablet Daily Max: 15 mg oxybutynin (DITROPAN-XL) 5 Take 1 Tab by mouth 90 Tab 3 11/26/2017 09/14/2018 mg CR tablet daily. hydrOXYzine (ATARAX) 25 mg Take 1 Tab by mouth 90 Tab 3 11/26/2017 07/21/2018 tablet every evening. documented in this encounter Progress Notes Mere Gonzales MD - 11/26/2017 1445 EDT Heike Salguero, 52 y.o. female PRIMARY CARE PROVIDER: Mere Gonzales CHIEF COMPLAINT: Chief Complaint Patient presents with ??? Chronic Pain ??? Fatigue HISTORY OF PRESENT ILLNESS: Heike Salguero is a 52 y.o. female here for f/u. Since I last saw her she had a large stone removed and a stent placed, now the stent was removed yesterday. Also she saw hematology to discuss the factor V leiden and was started on daily aspirin. She feels the abdominalpain hs significantly improved since having the stent removed. SHe has a bit remaining in the middleof the abdomen which is manageable. She is very happy about that change. Patient Active Problem List Diagnosis Date Noted ??? Moderate episode of recurrent major depressive disorder ([facility]) 11/26/2017 ??? Chronic abdominal pain 10/29/2017 ??? Constipation 10/29/2017 ??? PMR (polymyalgia rheumatica) ([facility]) 10/29/2017 ??? Raynaud phenomenon 10/29/2017 ??? Frequent UTI 10/29/2017 ??? Factor V Leiden ([facility]) 10/29/2017 ??? 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 Chronic abdominal pain ??? Factor V Leiden ([facility]) 10/29/2017 ??? Frequent UTI 10/29/2017 ??? PMR (polymyalgia rheumatica) ([facility]) ??? Post herpetic neuralgia ??? Raynaud phenomenon 10/29/2017 PAST SURGICAL HISTORY: has a past surgical history that includes Interstim. PAST FAMILY HISTORY: family history includes *Other(comment) in her father; Asthma in her maternal grandmother; Breast Cancer in her maternal grandmother; Clotting Disorder in her mother; Dementia in her paternal grandfather; High Blood Pressure in her paternal grandfather; Lung Cancer in her father; Ulcerative Colitis inher sister. PAST SOCIAL HISTORY: Social History Social History ??? Marital status: Spouse name: N/A ??? Number of children: N/A ??? Years of education: N/A Social History Main Topics ??? Smoking status: Never Smoker ??? Smokeless tobacco: Never Used ??? Alcohol use Yes ??? Drug use: No ??? Sexual activity: Not Asked Other Topics Concern ??? 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 She drinks 1 glass of wine /week. Nonsmoker. MEDICATION REVIEW: Medications reviewed & updated. ALLERGIES: Allergies as of 11/26/2017 ??? (No Known Allergies) REVIEW OF SYSTEMS: A ten point ROS was performed and was negative except for pertinent positives in the HPI PHYSICAL EXAM: Vitals: BP 110/70 (BP Cuff Location: Left arm, Patient Position: Sitting, BP Cuff Sizes: Adult, regular) Pulse 60 Temp 37 ??C (98.6 ??F) (Tympanic) Resp 14 Ht 157.5 cm (62) Wt 51.3 kg (113 lb) BMI 20.67 kg/m2 Gen - NAD Psych - alert and oriented x 3, normal mood and affect Neuro - CN II-XII grossly intact, normal gait ASSESSMENT / PLAN : 52 y.o. female here for follow-up. 1. Frequent UTIs/Incontinence with recent kidney stone - followed by the [facility] and urology. - continue oxybutynin 2. Possible PMR/Chronic fatigue - rheum referral to [facility] per pt request. Currently on prednisone 7mg but she is slowly decreasing it 3. ADD - continue adderall. We discussed how this can effect raynauds but she feels it's necessary to function at work. She knows q3mo visits are necessary 4. Raynauds - severe, discussed options and since she's never tried a CCB I have ordered norvasc 5. Depression/Anxiety - declines therapy at this time but she may be open to it in the future 6. Factor V leiden - followed by steve, on daily ASA Health Maintenance: Pap smear - UTD Jan 2015 Mammogram - asked to schedule Colonoscopy - ordered Tdap - UTD Nov 2017 Shingrix - discuss when restocked Basic labs/lipids - UTD Oct 2017 RTC 3 mo for ADD documented in this encounter Plan of Treatment Not on filedocumented as of this encounter Visit Diagnoses Diagnosis Frequent UTI - Primary Urinary tract infection, site not specif ied PMR (polymyalgia rheumatica) ([facility]) ( [facility]) Polymyalgia rheumatica ADHD, predominantly inattentive type Attention deficit disorder without menti on of hyperactivity Raynaud's phenomenon without gangrene Moderate episode of recurrent major depr essive disorder ([facility]) Factor V Leiden ([facility]) ([facility]) Primary hypercoagulable state Chronic abdominal pain Abdominal pain, unspecified site Need for tetanus booster Need for prophylactic vaccination with t etanus toxoid alone documented in this encounter Discontinued Medications Medication Sig Discontinue Reason Start Date End Date diclofenac (VOLTAREN) 50 Take 1 Tab by 11/11/2017 mg EC tablet mouth 2 times daily as needed for Pain. acetaminophen (TYLENOL) Take 2 Tabs by 11/11/2017 325 mg tablet mouth every 4 hours as needed for Pain. hydrOXYzine (ATARAX) 25 mg Take 25 mg by Reorder 11/26/2017 tablet mouth every evening. oxybutynin (DITROPAN-XL) 5 Take 1 Tab by Reorder 09/14/2017 11/26/2017 mg CR tablet mouth daily. dextroamphetamine-amphetam Take 1 Tab by Reorder 10/29/2017 11/26/2017 ine (ADDERALL) 15 mg mouth daily. Daily tablet Max: 15 mg documented as of this encounter Historical Medications This list may reflect changes made after this encounter. Medication Sig Dispensed Refills Start Date End Date LAXATIVE, BISACODYL, ORAL Take by mouth. 0 02/07/2018 magnesium oxide (MAG-OX) Take 400 mg by mouth 0 08/05/2020 400 mg (241.3 mg daily. magnesium) tablet added in this encounter Orders Immunization/Injection Count Last Ordered Date First O rdered Date TDAP VACCINE =>7YO IM 1 11/26/2017 documented in this encounter Care Teams Turf Manager Relationship Specialty Start Date End Date Mere Gonzales MD PCP - General 10/05/17 07/30/20 [address] [place] [phone] documented as of this encounter
--- OUTSIDE RECORDS SUMMARY | 2021-11-28 01:54 | XMS_ITS | Encounter Summary ---
:[address] [facility] Address [address] [place] [address] Care Team Providers Name Role Phone Mere Gonzales MD Primary Care Provider Reason for Referral Consult (3 - 10 Business Days) - Specialty Report Received Specialty Diagnoses / Procedures Referred By Contact Refer red To Contact Hematology Diagnoses FH: factor V Leiden mutation Factor V Leiden ([facility]) ([facility]) Fidelina Arana PA-C [address] [place] [address] Referral ID Status Reason Start Expiration Visits Visits Date Date Requested Authorized [id number] Specialty Specialty 11/10/2017 1 1 Report Services Received Required Question Answer Reason for Request: hx factor V leiden - pt posi tive in testing 2 yrs ago, pt's moth er was positive as well, pt's daugh ters are positive as well Scheduling Comments (optional ? surgery scheduled 11/11 describe specific scheduling needs if applicable): Reason for Visit Reason Comments Pre-op Exam Grunert/Kidney stone removal /11.11.17 Encounter Details Date Type Department Care Team Description 11/10/2017 Office Visit [facility] Fidelina Arana p examination (Primary Dx); Adult Primary Care - NELSON Mendoza Nephrolithiasis; [place] [address] Factor V Leiden ([facility]); [address] [place], FH: factor V Leiden mutation [place] [place] [address] [place] [phone] Social History Tobacco Use Types Packs/Day Years [...] Reading Time Taken Comments Blood Pressure 110/64 11/10/2017 0806 EDT Pulse 68 11/10/2017 0806 EDT Temperature 36.6 ??C (97.9 ??F) 11/10/2017 0806 EDT Respiratory Rate - - Oxygen Saturation - - Inhaled Oxygen Concentration - - Weight 51.3 kg (113 lb) 11/10/2017 0806 EDT Height - - Body Mass Index 20.02 11/10/2017 0728 EDT documented in this encounter Progress Notes Fidelina Arana PA - 11/10/2017 0815 EDT Subjective: Patient ID: Heike Salguero is an 52 y.o. female. Chief Complaint Patient presents with ??? Pre-op Exam Grunert/Kidney stone removal/11.11.17 HPI Comments: Surgery: kidney stone removal with basket Surgeon: Grunert Date: 11.11.17 HPI: pt has had a stone since 02/2016. She has pain 6-9:10. She had testing 2 yrs ago for Factor V Leiden. Her mother was positive, her daughters are positive. Several other family members have had kidney stones. Pt has had 3 in the past which she passed herself. Prior h/o of anesthetic complications -no nausea/vomiting Prior h/o bleeding problems -pt has factor V leiden Prior h/o DVT/PE -no Family history of anesthetic complications, bleeding problems or DVT/PE -mother - Factor V leiden, Cardiovascular or pulmonary risk factors: -mother - Factor V leiden, daughters - Factor V leiden, father - lung CA Patient Active Problem List Diagnosis ??? ADHD, predominantly inattentive type ??? Chronic abdominal pain ??? Constipation ??? PMR (polymyalgia rheumatica) ([facility]) ??? Raynaud phenomenon ??? Frequent UTI ??? Factor V Leiden ([facility]) Outpatient Prescriptions Marked as Taking for the 11/10/17 encounter (Office Visit) with Fidelina Arana PA Medication Sig Dispense Refill ??? clobetasol (TEMOVATE) 0.05 % ointment Apply topically 2 times daily. ??? cyanocobalamin (VITAMIN B-12) 500 mcg tablet Take 500 mcg by mouth daily. ??? dextroamphetamine-amphetamine (ADDERALL) 15 mg tablet Take 1 Tab by mouth daily. Daily Max: 15 mg 30 Tab 0 ??? ergocalciferol, vitamin D2, (VITAMIN D ORAL) Take by mouth. ??? hydrOXYzine (ATARAX) 25 mg tablet Take 25 mg by mouth every evening. ??? oxybutynin (DITROPAN-XL) 5 mg CR tablet Take 1 Tab by mouth daily. 90 Tab 3 ??? predniSONE (DELTASONE) 1 mg tablet Take 4 Tabs by mouth daily. Total dose 9 mg(+5mg tab) 120 Tab0 ??? predniSONE (DELTASONE) 5 mg tablet Take 1 Tab by mouth daily. Total dose 9 mg 30 Tab 0 Review of Systems Constitutional: Negative. HENT: Negative. Eyes: Negative. Respiratory: Negative. Cardiovascular: Negative. Gastrointestinal: Positive for nausea (secondary to pain - chronic). Genitourinary: Negative. Musculoskeletal: Positive for back pain (chronic secondary to nephrolithiasis). Skin: Negative. Neurological: Negative. Psychiatric/Behavioral: Negative. - See HPI Objective: BP 110/64 Pulse 68 Temp 36.6 ??C (97.9 ??F) (Tympanic) Wt 51.3 kg (113 lb) LMP 10/15/2017 (Approximate) BMI 20.02 kg/m2 Physical Exam Constitutional: She is oriented to person, place, and time. She appears well- developed and well-nourished. No distress. HENT: Head: Normocephalic and atraumatic. Right Ear: Tympanic membrane, external ear and ear canal normal. Left Ear: Tympanic membrane, external ear and ear canal normal. Nose: Nose normal. Mouth/Throat: Uvula is midline, oropharynx is clear and moist and mucous membranes are normal. No oropharyngeal exudate. Oropharynx is clear. Eyes: Conjunctivae and EOM are normal. Pupils are equal, round, and reactive to light. Neck: Normal range of motion. Neck supple. Cardiovascular: Normal rate and regular rhythm. Pulmonary/Chest: Effort normal and breath sounds normal. No respiratory distress. She has no wheezes. She has no rales. Abdominal: Soft. Bowel sounds are normal. She exhibits no distension and no mass. There is no tenderness. There is no rebound and no guarding. No hernia. Musculoskeletal: Normal range of motion. Lymphadenopathy: She has no cervical adenopathy. Neurological: She is alert and oriented to person, place, and time. Skin: Skin is warm and dry. She is not diaphoretic. Psychiatric: She has a normal mood and affect. Assessment / Plan: ??? Preop examination ??? Nephrolithiasis ??? Factor V Leiden ([facility]) ??? FH: factor V Leiden mutation EKG: not needed Pre-op risk assessment: Pt has hx Factor V leiden. She has had previous surgeries for spine without difficulty in the past. She has been referred to Hematology post surgery since scheduled tomorrow. Pt's level of pain is significant, will proceed with surgery Revised Cardiac Risk Index: 0 risk factors. Rate of cardiac and nonfatal myocardial infarction, cardiac arrest or ventricular fibrillation, pulmonary edema, and complete heart block: No risk factors - 0.4 to 1.0 percent versus <1 percent with beta blockers Plan: Anesthesia per Anesthesiology, pain management per surgeon, antibiotics per surgeon Hold nsaids, vitamin E, MVI and fish oil 1 week prior to surgery. Referral to Hematology - FH Factor V leiden and pt tested positive for Factor V leiden PMR - pt tapering prednisone - currently on 7.5mg daily, seeing Rheum at [facility] ASA 81mg daily for now until f/u with Hematology Pt does not smoke, not on hormones, no long trips or flights. Reference: Revised Cardiac Risk Index (Amaro - six independent predictors of cardiac complications): 1. High risk surgery (vascular, intraperitoneal, intrathoracic) 2. History of CAD (history of RI or a positive ETT, current ischemic chest pain, use of nitrates, orQ waves on ECG with pathological Q waves. (Don't count previous CABG unless another of the factors is present) 3. Hx CHF 4. Hx Stroke 5. Cr >2.0 mg/dl 6. DM on insulin YAZAN Tan 11/10/2017 8:12 documented in this encounter Plan of Treatment Scheduled Referrals Name Type Priority Associated Order Schedule Diagnoses AMB CONS/FOLLOW UP Outpatient Referral Routine FH: factor V Le iden Ordered: HEMATOLOGY mutation 11/10/2017 Factor V Leiden ([facility]) documented as of this encounter Visit Diagnoses Diagnosis Preop examination - Primary Preoperative examination, unspecified Nephrolithiasis Calculus of kidney Factor V Leiden ([facility]) ([facility]) Primary hypercoagulable state FH: factor V Leiden mutation Family history of other blood disorders documented in this encounter Care Teams Photo Retoucher Relationship Specialty Start Date End Date Mere Gonzales MD PCP - General 10/05/17 07/30/20 [address] [place] [phone] documented as of this encounter
--- OUTSIDE RECORDS SUMMARY | 2021-11-28 01:54 | XMS_ITS | Encounter Summary ---
:1965 Author Organization [facility] Address [address] [place] [address] Care Team Providers Name Role Phone Mere Gonzales MD Primary Care Provider Reason for Visit Reason Onset Date Comments Other 12/15/2017 Kidney Stone Encounter Details Date Type Department Care Team Description 12/15/2017 Telephone [facility] Adult Mere Gonzales Other (Kidney Stone ) Primary Care - [place] Jimenez MD [address] [place] [address] [place], [place] [phone] Social History Tobacco Use Types Packs/Day [...] Telephone Encounter - Esthela Hensley RN - 12/29/2017 0814 EST Patient has follow up call to urology. elephone Encounter - Marissa Howard RN - 12/15/2017 1627 EDT Pt informed Will give u/a at [facility] lab tomorrow The patient indicates understanding of these issues and agrees with the plan. No barriers or further ?s elephone Encounter - Mere Gonzales MD - 12/15/2017 1612 EDT Agree with plan to check urine studies, CALL urology and try a better bowel regimen Telephone Encounter - Marissa Howard RN - 12/15/2017 1425 EDT Call to pt Pain has been mild for over 3 wks Kidney stone that was blasted 3 wks ago(11/25 Cystourethroscopy with Stent Removal) was large and hadfor over 1 yr Pelvic pressure No dysuria Constantly feeling like having to go-ongoing for a couple wks No hematuria No back pain No fevers Odor to urine No vaginal discharge No diarrhea/nausea/vomiting Still having constipation Beulah was last Wednesday Has had one BM since Normally has BM a 2-3 x per wk No pain w/ BMs Takes otc laxative normally. Took 3x last wk. Last took Wednesday Has tried miralax once daily for past wk w/ no result Does drink coffee and lots of water Has healthy diet w/ fruits and veggies Pt does not think this is a UTI or constipation d/t her previous hx with both of these Would like to give a U/A to r/ot UTI; will also try increasing bowel meds to see if this helps with the pressure she is experiencing. Advised miralax bid, senna and colace She is going to call Urology office to see if they think this is at all r/t her procedure a few wks ago She would also like to see what else Dr Gonzales recommends Have pended u/a States she has another surgery coming up in January and is not wanting this to turn into something She is wary of coming in and being told to take more bowel meds To Dr Gonzales elephone Encounter - Josee Lorenzo - 12/15/2017 1412 EDT Reason for Call: Other (Kidney Stone ) Summary/Symptoms: Patient had a large kidney stone blasted three weeks ago. She's still having a lotof discomfort. She feels as if she has to urinate constantly. Onset and Duration? 3 weeks Appointment Offered? No Josee Lorenzo 12/15/2017 14:13 documented in this encounter Plan of Treatment Not on filedocumented as of this encounter Visit Diagnoses Diagnosis Urinary frequency - Primary documented in this encounter Orders Lab Orders Without Results Count Last Ordered Date st Ordered Date UA, CHEMICAL AND SEDIMENT ANALYSIS 1 12/15/2017 (DIPSTICK AND MICROSCOPIC) URINE CULTURE IF UA POSITIVE - NON POCT 1 12/16/19 18 URINALYSIS ONLY documented in this encounter Care Teams Supervisor Sawing And Assembly Relationship Specialty Start Date End Date Mere Gonzales MD PCP - General 10/05/17 07/30/20 [address] [place] [phone] documented as of this encounter
--- OUTSIDE RECORDS SUMMARY | 2021-11-28 01:54 | XMS_ITS | Encounter Summary ---
:1965 Author Organization [facility] Address [address] [place] [address] Care Team Providers Name Role Phone Mere Gonzales MD Primary Care Provider Reason for Visit Reason Onset Date Comments Appointment Related 11/10/2017 Encounter Details Date Type Department Care Team Description 11/10/2017 Telephone [facility] Alex Ren ntment Related Urology - Medical MD [place] [facility] [address] [place] [address], [address] [place], [place] [phone] [place] [address] [phone] (Wo rk) Social History Tobacco Use [...] this encounter Miscellaneous Notes Telephone Encounter - Shirlene Miguel - 11/10/2017 0937 EDT PCP called to verbalize her finding in today's pre-op with patient who has surgery with RTG on 11/11/17. Patient has family hx of Factor V Leiden (mother and her daughters). PCP does not think tomorrow's procedure is going to pose any problems/major risks, however she wanted to make sure we are fully aware of this. She asked that I pass this note on to the nurses. documented in this encounter Plan of Treatment Not on filedocumented as of this encounter Visit Diagnoses Not on filedocumented in this encounter Care Teams Entomology Professor Relationship Specialty Start Date End Date Mere Gonzales MD PCP - General 10/05/17 07/30/20 [address] [place] [phone] documented as of this encounter
--- OUTSIDE RECORDS SUMMARY | 2021-11-28 01:54 | XMS_ITS | Encounter Summary ---
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 Unspecified vitamin D deficiency Elle Cates DO Procedures DXA-DUAL XRAY ABSORPTIOMETRY FOR BONE DENSITY [address] [place] [address] Referral ID Status Reason Start Date Expiration Date Visits Requ ested Visits Authorized [id number] Closed 02/18/2016 1 1 Encounter Details Date Type Department Care Team Description 02/12/2016 Orders Only [facility] Elle Cates current use of systemic steroids (Primary Dx); Osteoporosis - Jimbo Sellers DO Unspecified vitamin D deficiency [place] [address] [facility] [address] [place] [phone] Social History Tobacco Use Types Packs/Day Years Used Date Never Assessed Food Insecurity Answer Date Recorded Within the [...] on filedocumented as of this encounter Results DXA-DUAL XRAY ABSORPTIOMETRY FOR BONE DENSITY (02/24/2016 10:40 EST) Pathologist Sig nature DEXA Bone Density [facility] DEXA Bone Density, External [facility] MEDICAL C ENTER Anatomical Region Laterality Modality Other Specimen Narrative This result has an attachment that is no t available. 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
--- OUTSIDE RECORDS SUMMARY | 2021-11-28 01:54 | XMS_ITS | Encounter Summary ---
:1965 Author Organization [facility] Address [address] [place] [address] Care Team Providers Name Role Phone Mere Gonzales MD Primary Care Provider Encounter Details Date Type Department Care Team Description 10/29/2017 Hospital Encounter [facility]- Angélica Gonzales, [facility] [address] [address] [place], [place] [phone] (Wo rk) Social History Tobacco Use Types [...] 10:24 EST documented as of this encounter Discharge Diagnoses Diagnosis Z00.00 Encounter for general adult medic al examination without abnormal findings-Z00.00[ICD-10-CM] K59.00 Constipation, unspecified-K59.00[ ICD-10-CM] M35.3 Polymyalgia rheumatica-M35.3[ICD-1 0-CM] R10.9 Unspecified abdominal pain-R10.9[I CD-10-CM] G89.29 Other chronic pain-G89.29[ICD-10- CM] documented in this encounter Medications at Time of Discharge Medication Sig Dispensed Refills Start Date End Date clobetasol (TEMOVATE) Apply topically 2 0 01/24/2018 0.05 % ointment times daily. cyanocobalamin (VITAMIN Take 500 mcg by mouth 0 08/29/2021 B-12) 500 mcg tablet daily. dextroamphetamine-amphet Take 1 Tab by mouth 30 Tab 0 11/26/2017 amine (ADDERALL) 15 mg daily. Daily Max: 15 tablet mg ergocalciferol, vitamin Take by mouth. 0 08/05/2020 D2, (VITAMIN D ORAL) hydrOXYzine (ATARAX) 25 Take 25 mg by mouth 0 11/26/2017 mg tablet every evening. oxybutynin (DITROPAN-XL) Take 1 Tab by mouth 90 Tab 3 11/26/2017 5 mg CR tablet daily. polyethylene glycol Instructions mailed 4000 mL 0 018 01/24/2018 (GOLYTELY;NULYTELY) once procedure [id number] -5.86 scheduled. Questions: gram suspension [facility]ology: [phone] or GI Doctor's Office. predniSONE (DELTASONE) 1 Take 4 Tabs by mouth 120 Tab 0 0 10/29/2017 02/04/2018 mg tablet daily. Total dose 9 mg(+5mg tab) predniSONE (DELTASONE) 5 Take 1 Tab by mouth 30 Tab 0 11/22/2017 mg tablet daily. Total dose 9 mg documented as of this encounter Discharge Disposition Disposition Code Departure Means Destination Auto Discharge Home documented in this encounter Plan of Treatment Not on filedocumented as of this encounter Visit Diagnoses Not on filedocumented in this encounter Care Teams Account Support Rep Relationship Specialty Start Date End Date Mere Gonzales MD PCP - General 10/05/17 07/30/20 [address] [place] [phone] documented as of this encounter
--- OUTSIDE RECORDS SUMMARY | 2021-11-28 01:54 | XMS_ITS | Encounter Summary ---
:1965 Author Organization [facility] Address [address] [place] [address] Care Team Providers Name Role Phone Mere Gonzlaes MD Primary Care Provider Reason for Visit Reason Comments Follow-up Encounter Details Date Type Department Care Team Description 11/08/2017 Office Visit [facility] Pelvic Russ Ryan on right Medicine and ANTELMO Allen (Primary D x) Reconstructive Surgery - Medical Office Build [facility] [address] [place] [address] Social History Tobacco Use Types [...] 10:24 EST documented as of this encounter Progress Notes Jenny Ryan NP - 11/08/2017 1530 EDT Subjective: Patient ID: Heike Salguero is an 52 y.o. female. Chief Complaint Patient presents with ??? Follow-up HPI UTIs Heike has a PMH significant for factor V Leiden, raynaud???s, vitiligo, gout, kidney stones, andurinary incontinence. PSH significant for interstim placement in 2007. ?? She was [facility]17 for evaluation and treatment of frequent UTIs, urinary incontinence, and hematuria. She had a negative urine cytology on 09/14/17, so to complete the hematuria workup she was scheduled for a CTU and office cystoscopy. She returned to the clinictoday for a cystoscopy with Dr. Rose, which was normal. 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 Heike endorses ongoing intermittent right-sided abdominal pain with nausea. Patient Active Problem List Diagnosis ??? ADHD, predominantly inattentive type ??? Chronic abdominal pain ??? Constipation ??? PMR (polymyalgia rheumatica) ([facility]) ??? Raynaud phenomenon ??? Frequent UTI ??? Factor V Leiden ([facility]) Past Medical History: Diagnosis Date ??? Chronic abdominal pain ??? Factor V Leiden ([facility]) 10/29/2017 ??? Frequent UTI 10/29/2017 ??? PMR (polymyalgia rheumatica) ([facility]) ??? Post herpetic neuralgia ??? Raynaud phenomenon 10/29/2017 Past Surgical History: Procedure Laterality Date ??? INTERSTIM Family History Problem Relation Age of Onset ??? Lung Cancer Father ??? *Other(comment) Father raynauds ??? Ulcerative Colitis Sister ??? Breast Cancer Maternal Grandmother ??? Asthma Maternal Grandmother ??? Dementia Paternal Grandfather ??? High Blood Pressure Paternal Grandfather ??? Clotting Disorder Mother Factor V leiden Social Social History Substance Use Topics ??? Smoking status: Never Smoker ??? Smokeless tobacco: Never Used ??? Alcohol use Yes Current Outpatient Prescriptions on File Prior to Visit Medication Sig Dispense Refill ??? clobetasol (TEMOVATE) [...] by mouth daily. 90 Tab 3 ??? polyethylene glycol (GOLYTELY;NULYTELY) 236-22.74-6.74 -5.86 gram suspension Instructions mailedonce procedure scheduled. Questions: [facility]: [phone] or GI Doctor's Office. 4000 mL 0 ??? predniSONE (DELTASONE) 1 mg tablet Take 4 Tabs by mouth daily. Total dose 9 mg(+5mg tab) 120 Tab0 ??? predniSONE (DELTASONE) 5 mg tablet Take 1 Tab by mouth daily. Total dose 9 mg 30 Tab 0 No current facility-administered medications on file prior to visit. No Known Allergies Review of Systems Constitutional: Negative for chills and fever. Respiratory: Negative for shortness of breath. Cardiovascular: Negative for leg swelling. Gastrointestinal: Positive for abdominal pain, constipation and nausea. Negative for diarrhea. Genitourinary: Positive for flank pain, frequency and urgency. Negative for dysuria and hematuria. - See HPI Objective: LMP 10/15/2017 (Approximate) Physical Exam Constitutional: She is oriented to person, place, and time. She appears well- developed and well-nourished. Pulmonary/Chest: Effort normal. Neurological: She is alert and oriented to person, place, and time. Skin: Skin is warm and dry. Psychiatric: She has a normal mood and affect. Her speech is normal and behavior is normal. Judgmentand thought content normal. Cognition and memory are normal. Assessment: Right UPJ stone Plan: Heike was seen today for follow-up. Diagnoses and all orders for this visit: Kidney stone on right side - POCT Urine Dipstick, Clinitek Heike's hematuria, flank and abdominal pain, and frequent UTIs can all be attributed to her large right-sided obstructing UPJ stone. I reviewed the CT scan with Dr. Ren, who suggests ESWL vs ureteroscopy with laser lithotripsy. I discussed both procedures with Heike, who elects to proceed with the ureteroscopy with laser lithotripsy and stent placement. All of her questions were answered to the best of my ability. We discussed risks of surgery, including but not limited to bleeding, infection, pain, and risks specific to this surgery, which include inability to access the stone, incomplete removal of stone fragments, ureteral injury, and need for repeat procedure. We discussed post-surgical pain control with tylenol, ibuprofen, and prn opiates, and potential need for antispasmodics and/or bladder analgesics for bladder irritation due to ureteral stent. She will return to see me afterthis stone is treated to evaluate her stone risk factors, as well as to re-evaluate her urinary symptoms. Gabrielshe verbalized understanding and is amenable to this plan. This case was discussed with Dr. Ren, including my assessment and plan. Jenny Ryan NP documented in this encounter Plan of Treatment Not on filedocumented as of this encounter Procedures Procedure Name Priority Date/Time Associated Diagnosis Comme nts POCT URINE Routine 11/08/2017 15:42 Kidney stone on Results for this DIPSTICK, CLINITEK EDT right side procedure are in the results section. documented in this encounter Results (ABNORMAL) POCT URINE DIPSTICK, CLINITEK (11/08/2017 15:42 EDT) Color YELLOW [facility] Clarity, UA Clear [facility] Glucose Neg [facility] SERVICES Bilirubin [facility] Ketones Neg [facility]ORATORY SERVICES Specific [place] 1.015 1.001 - 1.035 [facility] Blood 3+ (A) [facility]ATORY SERVICES pH 7.0 4.6 - 8.0 [facility] Protein [facility] Urobilinogen 0.2 0.2 - 1.0 [facility] mg/dL LABORATORY SERVICES Nitrite Neg [facility]ORATORY SERVICES Leuk Esterase Trace (A) [facility] LABORATORY heel finisher ID [id number]: [facility] Krebs Specimen Urine (substance) - Urine Performing Organization Address City/State/ZIP Code Phon e Number [facility] [address] [place] [address] SERVICES documented in this encounter Visit Diagnoses Diagnosis Kidney stone on right side - Primary Calculus of kidney documented in this encounter Care Teams Director Of Ancillary Services Relationship Specialty Start Date End Date Mere Gonzales MD PCP - General 10/05/17 07/30/[address] [place] [address] [phone] documented as of this encounter
--- OUTSIDE RECORDS SUMMARY | 2021-11-28 01:54 | XMS_ITS | Encounter Summary ---
:[address] [facility] Address [address] [place] [address] Care Team Providers Name Role Phone Mere Gonzales MD Primary Care Provider Reason for Visit Reason Comments Follow-up 1 Week Cysto/Stent Removal Encounter Details Date Type Department Care Team Description 11/25/2017 Office Visit [facility] Unknown, Prov MD theresa Kidney stones Urology - Medical Urology, Mob Procedures (Primary Dx) Office Building [address] [facility], [address] [place] [address] Social History Tobacco Use Types [...] Discharge documented in this encounter Progress Notes Gabi Finn RN - 11/25/2017 1530 EDT Se physician encounter Gabi Finn RN documented in this encounter Plan of Treatment Not on filedocumented as of this encounter Visit Diagnoses Diagnosis Kidney stones - Primary Calculus of kidney documented in this encounter Historical Medications This list may reflect changes made after this encounter. Medication Sig Dispensed Refills Start Date End Date UNABLE TO FIND Med Name: Baby Asprin 81 MG 0 01/28/2018 added in this encounter Care Teams Geology Teacher Relationship Specialty Start Date End Date Mere Gonzales MD PCP - General 10/05/17 07/30/20 [address] [place] [phone] documented as of this encounter
--- OUTSIDE RECORDS SUMMARY | 2021-11-28 01:54 | XMS_ITS | Encounter Summary ---
:1965 Author Organization [facility] Address [address] [place] [address] Care Team Providers Name Role Phone Elle Cates DO Primary Care Provider Encounter Details Date Type Department Care Team Description 09/14/2017 Results Only [facility] Urology - Javier Moon, Medical Office Build [place] [id number] [facility], [address] [place], [place] [id number] Social History Tobacco Use Types Packs/Day Years [...] Name Priority Date/Time Associated Diagnosis Comme nts CYTOPATHOLOGY Routine 09/14/2017 0:00 EDT Results for this procedure are i n the results section . documented in this encounter Results CYTOPATHOLOGY (09/14/2017 0:00 EDT) Pathology Report: CYTOPATHOLOGY REPORT [facility] Reports generated via electronic interface contain christiano ginal data; SERVICES however they are lacking the format of the original re port. Caution should be taken when reading/interpreting unfo rmatted reports. Name: ? CLIFTON UGARTE ? Accession #: ? [id number] : ? 1965 (Age: [age]) ??F ?Collect Date: ? 09/14 Location: ? [facility] ? Receive Date: ? 09/15/2017 Provider: ? JAVIER MOON APPLICATION DESIGN ENGINEER Copy to: ? CYTOLOGIC DIAGNOSIS: URINE, VOIDED, CYTOLOGIC EVALUATION: - Negative for high grade urothelial carcinoma. - Reactive and degenerated urothelial cells present. - Background of chronic inflammation present. Document reviewed and electronically signed by: ? SUMI RUIZ MD Report Date: ??09/15/2017 13:15 By the signature above, the attending physician certif ies that he/she has personally conducted a gross and/or microscopic examin ation of the described specimens and rendered or confirmed the above diagnosi s. Specimen Type: ? Urine, Voided Clinical History: ? Gross hematuria. Clinical diagnosis code: ??R31.0. ? Gross Description: ? 45ccs of clear dark yellow fluid were received and pro cessed by selective cellular enhancement technique. ? End of Report Specimen Performing Organization Address City/State/ZIP Code Phon e Number [facility] [address] [place] [address] SERVICES documented in this encounter Visit Diagnoses Not on filedocumented in this encounter Care Teams Registered Client Associate Relationship Specialty Start Date End Date Elle Cates DO PCP - General 08/31/11 10/04/17 [address] [address] documented as of this encounter
--- OUTSIDE RECORDS SUMMARY | 2021-11-28 01:54 | XMS_ITS | Encounter Summary ---
:1965 Author Organization [facility] Address [address] [place] [address] Care Team Providers Name Role Phone Elle Cates DO Primary Care Provider Reason for Visit Reason Comments New Patient Visit Encounter Details Date Type Department Care Team Description 02/18/2016 Office Visit [facility] Yunior Renee MD Elvis g term current use of systemic steroids; Osteoporosis - Balbina León MD Unspecified vitamin D deficiency; [place] PMR (polymyalgia rheumatica) ([facility] [address] 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 Ht 160 cm (63) ??? Wt 52.2 kg (115 lb) ??? LMP 01/23/2016 (Approximate) Comment: Irreg menses ??? BMI 20.37 kg/m2 Done AP SPINE yes FEMUR yes TOTAL BODY FOREARM LVA/VFA HEEL US PATIENT HISTORY: Patient Active Problem List Diagnosis ??? ADHD, predominantly inattentive type ??? Chilblains ??? Lump or mass in breast ??? Plantar warts No past medical history on file. Additional Comments: Previous/Prior Comparison? No Pharmacologic? No Osteoporosis Center Patient Information Ethnicity/Race: Nutrition and Habits: Do you consume dairy? Yes Number of servings per day? 1 Do you take calcium supplements? No [...] more for at least 3 months? Yes - since June 2015 forPMR ? Low dose prednisone? Thyroid medication for thyroid cancer suppression? No [...] No Kidney failure No Rheumatoid arthritis No (PMR) Seizure disorder (epilepsy) No Diabetes mellitus No Bariatric surgery/Gastric bypass No Back Surgery No Back X-ray No Fractures after age 40 No Area: Treatments: [...] Only: What was your age at menopause? 01/23/2016 (Irreg menses - perimenopausal - preg denied) Are you taking estrogen now or within the past year? Never, Date stopped: Have you been treated for breast cancer? Never Comments: Excluded L3-L4 due to SD. Patient states she has no medical insurance and does not want VFA done. 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 Encounter for long-term (current) use of steroids Unspecified vitamin D deficiency PMR (polymyalgia rheumatica) ([facility] ( [facility]) Polymyalgia rheumatica Osteoporosis screening Special screening for osteoporosis documented in this encounter Orders Admission Count Last Ordered Date First Ordered Date ORDERS - SCANNED 1 02/25/2016 documented in this encounter Care Teams Self Rising Flour Mixer Relationship Specialty Start Date End Date Elle Cates DO PCP - General 08/31/11 10/04/17 [address] [place] [address] documented as of this encounter
--- OUTSIDE RECORDS SUMMARY | 2021-11-28 01:54 | XMS_ITS | Encounter Summary ---
:1965 Author Organization [facility] Address [address] [place] [address] Care Team Providers Name Role Phone Elle Cates DO Primary Care Provider Mere Gonzales MD Primary Care Provider Reason for Visit Reason Onset Date Comments Appointment Related 09/01/2017 Encounter Details Date Type Department Care Team Description 09/01/2017 Telephone [facility] Juanito Lai MD Appointment Related Rheumatology & [address] [facility] venue Immunology - [facility], [facility], Level [address] [place] [address] [phone] (Wo rk) Social History Tobacco Use Types [...] this encounter Miscellaneous Notes Telephone Encounter - Kiarra Nolan - 09/01/2017 1019 EDT Pt had to cancel her 08/02 NPV with Joelle and would like to reschedule with any provider available. Her condition has worsened and she would like to come to clinic Does she need a new referral? Can shechange to another provider if they have an earlier appt? documented in this encounter Plan of Treatment Not on filedocumented as of this encounter Visit Diagnoses Not on filedocumented in this encounter Care Teams Sight Effects Specialist Relationship Specialty Start Date End Date Elle Cates DO PCP - General 08/31/11 10/04/17 [address] [place] [address] Mere Gonzales MD PCP - General 10/05/17 07/30/20 [address] [place] [phone] documented as of this encounter
--- OUTSIDE RECORDS SUMMARY | 2021-11-28 01:54 | XMS_ITS | Encounter Summary ---
:1965 Author Organization [facility] Address [address] [place] [address] Care Team Providers Name Role Phone Elle Cates DO Primary Care Provider Reason for Referral Radiology Services (Routine) - Specialty Report Received Specialty Diagnoses / Procedures Referred By Contact Refer red To Contact Urology Diagnoses Gross hematuria Jenny Ryan APRN Westervelt, Anna M, APRN Procedures CT UROGRAM W/WO CONTRAST [address] [place] [address] [place] [address] Referral ID Status Reason Start Date Expiration Date Visits V isits Requested Authorized [id number] Specialty 11/02/2017 12/31/2017 1 1 Report Received Reason for Visit Reason Comments New Patient Visit blood in urine, recurrent ut i Encounter Details Date Type Department Care Team Description 09/14/2017 Office Visit [facility] [place], Ur inary incontinence, unspecified type (Primary Dx); Medicine and Jenny Garner APRN Gross hematuria Reconstructive Surgery - Medical Office Build [facility] [address] [place], [place] [id number] Social History Tobacco Use Types Packs/Day Years [...] Sign Reading Time Taken Comments Blood Pressure 140/92 09/14/2017 1509 EDT Pulse 87 09/14/2017 1509 EDT Temperature - - Respiratory Rate - - Oxygen Saturation - - Inhaled Oxygen Concentration - - Weight 49.9 kg (110 lb) 09/14/2017 1509 EDT Height 160 cm (5' 3) 09/14/2017 1509 EDT Body Mass Index 19.49 09/14/2017 1509 EDT documented in this encounter Discharge Diagnoses Diagnosis R32 Unspecified urinary incontinence-R32 [ICD-10-CM] R31.0 Gross hematuria-R31.0[ICD-10-CM] documented in this encounter Ordered Prescriptions Prescription Sig Dispensed Refills Start Date End Date oxybutynin (DITROPAN-XL) 5 Take 1 Tab by mouth 90 Tab 3 09/14/2017 11/26/2017 mg CR tablet daily. documented in this encounter Discharge Disposition Disposition Code Departure Means Destination Auto Discharge documented in this encounter Progress Notes Jenny Ryan NP - 09/14/2017 1500 EDT Subjective: Patient ID: Heike Salguero is an 52 y.o. female. Chief Complaint Patient presents with ??? New Patient Visit blood in urine, recurrent uti HPI UTIs Heike has a PMH significant for factor V Leiden, raynaud???s, vitiligo, gout, kidney stones, andurinary incontinence. PSH significant for interstim placement in 2007. She was [facility] for evaluation and treatment of frequent UTIs, urinary incontinence, and hematuria. Heike describes having approximately one year of frequent UTIs, with intermittent episodes of severe abdominal pain and nausea/vomiting. She has a remote history of UTIs asa child, but had what sounds like a urethral dilation when she was 19 years old, and never had another UTI until this past year. She estimates that she has been treated with antibiotics for UTIs about 5 times over the past year (I do not have these cultures.) She denies symptom improvement with antibiotic use. Of note, she had an interstim placed in 2007 for urinary incontinence, but states that it never worked well for her. She had the battery replaced in ~2009, but it didn't seem to make a difference in its efficacy. Her UI had also been treated with oxybutynin, but in April 2017 her PCP stopped that medication, wondering if it may be contributing to her UTIs. She is now having recurrent urinary incontinence, saturating 1-2 pads daily. She also reports significant constipation, which has been an issue for her for years. She strains with BMs, and passes hard stools 2-3 times weekly. Her baseline constipation didn't seem to change when taking oxybutynin. 03/23/16 CT renal colic showed a 3mm left UPJ stone with mild to moderate hydro, and an enlarged uterus (likely fibroid but recommend u/s if clinically indicated.) Heike recalls that days after the CT scan her pain went away, but she never noticed a stone pass. Constipation - straining and passing hard stool 2-3 times weekly PVR today 0mL Patient Active Problem List Diagnosis ??? ADHD, predominantly inattentive type ??? Chilblains ??? Lump or mass in breast ??? Plantar warts No past medical history on file. No past surgical history on file. No family history on file. Social Social History Substance Use Topics ??? Smoking status: Never Smoker ??? Smokeless tobacco: Never Used ??? Alcohol use Yes Current Outpatient Prescriptions on File Prior to Visit Medication Sig Dispense Refill ??? clobetasol (TEMOVATE) 0.05 % ointment Apply topically 2 times daily. ??? dextroamphetamine-amphetamine (ADDERALL) 15 mg tablet Take 15 mg by mouth daily. ??? hydrOXYzine (ATARAX) 25 mg tablet Take 25 mg by mouth every evening. ??? oxyCODONE (ROXICODONE) 5 mg immediate release tablet Take 1 Tab by mouth every 6 hours as neededfor up to 15 doses for Pain. Daily Max: 20 mg (Patient not taking: Reported on 09/14/2017) 15 Tab 0 ??? predniSONE (DELTASONE) 5 mg tablet Take by mouth daily. Dose unknown No current facility-administered medications on file prior to visit. No Known Allergies Review of Systems Constitutional: Negative for chills, fever and unexpected weight change. Respiratory: Negative for shortness of breath and wheezing. Cardiovascular: Negative for chest pain and leg swelling. Gastrointestinal: Positive for abdominal pain and constipation. Negative for diarrhea. Genitourinary: Positive for frequency, hematuria and urgency. Negative for dyspareunia, dysuria and pelvic pain. Musculoskeletal: Negative for back pain. Skin: Negative for rash. Hematological: Negative for adenopathy. Psychiatric/Behavioral: Negative for dysphoric mood. The patient is not nervous/anxious. - See HPI Objective: BP (!) 140/92 Pulse 87 Ht 160 cm (63) Wt 49.9 kg (110 lb) BMI 19.49 kg/m2 Physical Exam Constitutional: She is oriented to person, place, and time. She appears well- developed and well-nourished. Cardiovascular: Normal rate and regular rhythm. Pulmonary/Chest: Effort normal. Abdominal: Soft. Normal appearance. There is no tenderness. There is no CVA tenderness. Genitourinary: Moist vaginal mucosa. Normal appearing urethra without lesions. No cystocele or rectocele. Lymphadenopathy: Right: No supraclavicular adenopathy present. Left: No supraclavicular adenopathy present. Neurological: She is alert and oriented to person, place, and time. Skin: Skin is warm, dry and intact. Psychiatric: She has a normal mood and affect. Her speech is normal and behavior is normal. Judgmentand thought content normal. Cognition and memory are normal. Assessment: Hematuria Urinary incontinence History of UTIs Plan: Heike was seen today for new patient visit. Diagnoses and all orders for this visit: Urinary incontinence, unspecified type Other orders - cyanocobalamin (VITAMIN B-12) 500 mcg tablet; Take 500 mcg by mouth daily. - ergocalciferol, vitamin D2, (VITAMIN D ORAL); Take by mouth. - Cancel: POCT Urine Dipstick, Clinitek Heike and I discussed the recommended evaluation for gross hematuria, including rationale for testing to assess for kidney stones, bladder cancer, and kidney cancer. A urine cytology was sent today, she will have a CTU, and then she will return for an office cystoscopy with one of the physicians. She feels symptomatic of UTI today, so a urine was sent for culture and she will be treated based onresults. She will re-start daily oxybutynin to treat her urinary incontinence, as UI can contribute to UTIs. Heike verbalized understanding and is amenable to this plan. Dr. Sales was immediately available to consult with questions. Jenny Ryan NP documented in this encounter Plan of Treatment Scheduled Orders Name Type Priority Associated Diagnoses Order S chedule CYTOLOGY (NON-GYNECOLOGIC Pathology Routine Gross hematuria Ordered: 09/14/2017 INCLUDING FLUIDS AND FINE NEEDLE ASPIRATION)- ORDER ONLY documented as of this encounter Procedures Procedure Name Priority Date/Time Associated Diagnosis Comme nts CT UROGRAM W/WO Routine 11/05/2017 9:31 EDT Gross hematuria Re sults for this CONTRAST procedure are i n the results section. BACTERIAL CULTURE, Routine 09/14/2017 15:55 Urinary Resul ts for this URINE EDT incontinence, procedure are in unspecified type the results section. documented in this encounter Results CT UROGRAM W/WO CONTRAST (11/05/2017 9:31 EDT) Anatomical Region Laterality Modality Other Specimen Narrative [facility] - 11/05/2017 10:[address] UROGRAM ??11/05/2017 9:31 AM Signs and Symptoms/Comments: ?? R31.0-Gross [id number]; Hematuria Technique: Precontrast scans were initially obtaine d from the top of the kidneys through the bladder. ??This was followed by a contrast-enhanced, nephropyelographic ph ase using a split bolus technique: 65 cc of 350 mg% nonionic IV contrast administered at a rate of 1 cc/second; then after a 12-min [place] delay, a 50 cc bolus of 350 mg% IV contrast at 1 cc/second was a dministered; images were obtained at 100 seconds after a second b olus. Coronal and sagittal reconstructions were performed. Comparison: March 23, 2016 Findings: Lower chest: Unchanged trace pericardial effusion. Hepatobiliary: No suspicious hepatic les ions. Segment 2/3 and segment 6 hepatic cysts are unchanged. T iny polyp is present within the gallbladder. Biliary tree is within normal limits. Spleen, pancreas, adrenal glands: No carin picious lesions. Urinary Tract: --Unenhanced images: 1.3 x 1.1 cm calcul us at the left ureteropelvic junction. Additional 4 mm calculus is pr esent in the left lower pole. No additional ureteral calculi tobin ntified bilaterally. No bladder calculi. --Post contrast renal parenchyma: No carin picious renal parenchymal masses. Right renal cysts. 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 Single collecting system on the left. Ur eters are patulous bilaterally, to the level of the uterus. No urothelial lesions identified in the upper tracts. Mild lef t hydronephrosis. --Urinary bladder:No polypoid urinary bl adder lesions. Uterus, ovaries: Uterus is enlarged by m ultiple fibroids. New left adnexal cystic lesion on axial image #19 2 measures 4.2 x 2.7 cm. F present in the vagina. Bowel: No obstruction or acute inflammat ory changes. Peritoneal cavity / Subperitoneal space: No free fluid or free air. Lymphovascular: Vascular structures are unremarkable. No lymphadenopathy. Abdominal wall: No bowel containing demarco ia. Musculoskeletal: Right sacral neurostimu lator device. No suspicious osseous lesions. Multilevel lumbar degen erative disc disease. Impression: 1. Obstructing calculus at the right UPJ measuring 1.3 x 1.1 cm. 2. New nonobstructing left lower pole in trarenal calculus. 3. No urothelial lesions in the upper tr acts. No suspicious renal parenchymal lesions. No polypoid urinary bladder lesions. 4. 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 5. Patulous appearance of the ureters ab ove the level of the uterus, likely related to functional obstruction by the enlarged uterus due to fibroids. 6. New left adnexal cystic lesion. No sp ecific follow-up indicated in this presumably premenopausal patient . Procedure Note Robert Brasher MD - 11/05/2017 CT UROGRAM 11/05/2017 9:31 AM Signs and Symptoms/Comments: R31.0-Gross gbwhdphap-[id number]; Hematuria Technique: Precontrast scans were initially obtaine d from the top of the kidneys through the bladder. This was fo llowed by a contrast-enhanced, nephropyelographic ph ase using a split bolus technique: 65 cc of 350 mg% nonionic IV contrast administered at a rate of 1 cc/second; then after a 12-min [place] delay, a 50 cc bolus of 350 mg% IV contrast at 1 cc/second was a dministered; images were obtained at 100 seconds after a second b olus. Coronal and sagittal reconstructions were performed. Comparison: March 23, 2016 Findings: Lower chest: Unchanged trace pericardial effusion. Hepatobiliary: No suspicious hepatic les ions. Segment 2/3 and segment 6 hepatic cysts are unchanged. T iny polyp is present within the gallbladder. Biliary tree is within normal limits. Spleen, pancreas, adrenal glands: No carin picious lesions. Urinary Tract: --Unenhanced images: 1.3 x 1.1 cm calcul us at the left ureteropelvic junction. Additional 4 mm calculus is pr esent in the left lower pole. No additional ureteral calculi tobin ntified bilaterally. No bladder calculi. --Post contrast renal parenchyma: No carin picious renal parenchymal masses. Right renal cysts. 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 Single collecting system on the left. Ur eters are patulous bilaterally, to the level of the uterus. No urothelial lesions identified in the upper tracts. Mild lef t hydronephrosis. --Urinary bladder:No polypoid urinary bl adder lesions. Uterus, ovaries: Uterus is enlarged by m ultiple fibroids. New left adnexal cystic lesion on axial image #19 2 measures 4.2 x 2.7 cm. F present in the vagina. Bowel: No obstruction or acute inflammat ory changes. Peritoneal cavity / Subperitoneal space: No free fluid or free air. Lymphovascular: Vascular structures are unremarkable. No lymphadenopathy. Abdominal wall: No bowel containing demarco ia. Musculoskeletal: Right sacral neurostimu lator device. No suspicious osseous lesions. Multilevel lumbar degen erative disc disease. Impression: 1. Obstructing calculus at the right UPJ measuring 1.3 x 1.1 cm. 2. New nonobstructing left lower pole in trarenal calculus. 3. No urothelial lesions in the upper tr acts. No suspicious renal parenchymal lesions. No polypoid urinary bladder lesions. 4. 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 5. Patulous appearance of the ureters ab ove the level of the uterus, likely related to functional obstruction by the enlarged uterus due to fibroids. 6. New left adnexal cystic lesion. No sp ecific follow-up indicated in this presumably premenopausal patient . Performing Organization Address City/State/ZIP Code Phon e Number [facility] BACTERIAL CULTURE, URINE (09/14/2017 15:55 EDT) Pathologist Sig nature Result No growth [facility] Specimen Urine (substance) - Urine Performing Organization Address City/State/ZIP Code Phon e Number [facility] [address] [place] [address] SERVICES documented in this encounter Visit Diagnoses Diagnosis Urinary incontinence, unspecified type - Primary Gross hematuria documented in this encounter Historical Medications This list may reflect changes made after this encounter. Medication Sig Dispensed Refills Start Date End Date ergocalciferol, vitamin D2, Take by mouth. 0 08/05/2020 (VITAMIN D ORAL) cyanocobalamin (VITAMIN Take 500 mcg by 0 08/29/2021 B-12) 500 mcg tablet mouth daily. added in this encounter Care Teams Tarring Machine Operator Relationship Specialty Start Date End Date Elle Cates DO PCP - General 08/31/11 10/04/17 [address] [place] [address] documented as of this encounter
--- OUTSIDE RECORDS SUMMARY | 2021-11-28 01:54 | XMS_ITS | Encounter Summary ---
:1965 Author Organization [facility] Address [address] [place] [address] Care Team Providers Name Role Phone Mere Gonzales MD Primary Care Provider Reason for Visit Reason Onset Date Comments Medication Management 11/03/2017 Encounter Details Date Type Department Care Team Description 11/03/2017 Telephone [facility] Adult Mere Gonzales Medication Management Primary Care - Tam Jimenez MD [address] [place] [address] [place], [place] [phone] Social History Tobacco Use Types Packs/Day [...] Telephone Encounter - Esthela Hensley RN - 11/10/2017 1631 EDT Patient had office visit today. elephone Encounter - Jennifer Raymond RN - 11/04/2017 1140 EDT Left message for patient to call back. elephone Encounter - Mere Gonzales MD - 11/03/2017 1642 EDT I don't think she needs to hold anything elephone Encounter - Paola Mc - 11/03/2017 1621 EDT Reason for Call: Medication Management Summary/Symptoms: Pt has some questions on a medication that she could take, but doesn't want to take it if it will mess with the CT. Pt has CT first thing in the morning Onset and Duration? Appointment Offered? N/A Paola Mc 11/03/2017 16:31 documented in this encounter Plan of Treatment Not on filedocumented as of this encounter Visit Diagnoses Not on filedocumented in this encounter Care Teams Gardening Manager Relationship Specialty Start Date End Date Mere Gonzales MD PCP - General 10/05/17 07/30/[address] [place] [phone] documented as of this encounter
--- OUTSIDE RECORDS SUMMARY | 2021-11-28 01:54 | XMS_ITS | Encounter Summary ---
:1965 Author Organization [facility] Address [address] [place] [address] Care Team Providers Name Role Phone Mere Gonzales MD Primary Care Provider Reason for Visit Reason Onset Date Comments Medications Refill 12/31/2017 Encounter Details Date Type Department Care Team Description 12/31/2017 Refill [facility] Adult Mere Gonzales, Medications Refill Primary Care - Tam HERNÁNDEZ [address] [place] [address] [place], [place] [phone] (Wo rk) Social History Tobacco Use [...] Tab by mouth 30 Tab 2 1 03/02/2017 01/28/2018 tablet daily. documented in this encounter Miscellaneous Notes Telephone Encounter - Josee Lorenzo - 12/31/2017 1100 EST Medication(s) Requested: amLODIPine (NORVASC) 5 mg tablet [[id number]] Order Details ? Dose: 5 mg Route: oral Frequency: DAILY ?? Dispense Quantity: 30 Tab Refills: 2 Fills Remaining: -- ? Sig: Take 1 Tab by mouth daily. ? Written Date: 11/26/17 Expiration Date: -- ?? Start Date: 11/26/17 Preferred Pharmacy:[facility] Is patient out of medication? Yes Last Refill Date: Last Visit Date with Ordering Provider: 11.26.17 ROBERT Next Non-Acute Visit Date Scheduled with Care Team: Yes.02.21.18 ROBERT Lorenzo 12/31/2017 11:00 documented in this encounter Plan of Treatment Not on filedocumented as of this encounter Visit Diagnoses Not on filedocumented in this encounter Discontinued Medications Medication Sig Discontinue Reason Start Date End Date amLODIPine (NORVASC) 5 mg Take 1 Tab by mouth Reorder 11/27/19 18 12/31/2017 tablet daily. documented as of this encounter Care Teams Warehouse Order Picker Relationship Specialty Start Date End Date Mere Gonzales MD PCP - General 10/05/17 07/30/20 [address] [place] [phone] documented as of this encounter
--- OUTSIDE RECORDS SUMMARY | 2021-11-28 01:54 | XMS_ITS | Encounter Summary ---
:1965 Author Organization [facility] Address [address] [place] [address] Care Team Providers Name Role Phone Mere Gonzales MD Primary Care Provider Reason for Visit Reason Comments Follow-up interstim removal consult Encounter Details Date Type Department Care Team Description 12/03/2017 Office Visit [facility], Urinary urgency Pelvic Medicine and [place] (Primary Dx) [facility] Build [place] [phone] [address] [facility] [phone] [place] [address] (Work) [phone] Social History Tobacco Use Types Packs/Day Years [...] documented as of this encounter Progress Notes Felicitas Hogan MD - 12/03/2017 1300 EDT Subjective: Heike Salguero is a 52 y.o. female with a history of malfunctioning InterStim She had an InterStim and had the battery replaced 10 years ago. She reports vaginal shocking sensations. She states continues to have urinary incontinence. She states the second battery within 1.5 years. She states she has pain over the battery site and this keeps her from doing yoga. She is not having any shock like sensations as the battery is . She wishes to have this removed. Heike Salguero's medications, allergies, past medical, past surgical, social and family histories were reviewed and updated as appropriate. Review of pertinent medical records was completed. Heike Salguero has a current medication list which includes the following prescription(s): amlodipine, clobetasol, cyanocobalamin, dextroamphetamine- amphetamine, dextroamphetamine-amphetamine, dextroamphetamine-amphetamine, ergocalciferol (vitamin d2), hydroxyzine, bisacodyl, magnesium oxide, oxyb utynin, polyethylene glycol, prednisone, and UNABLE TO FIND. Heike Salguero has No Known Allergies. Heike Salguero has a past medical history of Chronic abdominal pain; Factor V Leiden ([facility]) (10/29/2017); Frequent UTI (10/29/2017); PMR (polymyalgia rheumatica) ([facility]); Post herpetic neuralgia;and Raynaud phenomenon (10/29/2017). She has a past surgical history that includes Interstim. Heike Salguero reports that she has never smoked. She has never used smokeless tobacco. She reports that she drinks alcohol. She reports that she does not use illicit drugs. Her family history includes *Other(comment) in her father; Asthma in her maternal grandmother; Breast Cancer in her maternal grandmother; Clotting Disorder in her mother; Dementia in her paternal grandfather; High Blood Pressure in her paternal grandfather; Lung Cancer in her father; Ulcerative Colitis in her sister. Review of systems was positive for urinary urgency, clots easily, vaginal pain, kidney stones, constipation, depression. 14 systems were reviewed and all were negative other than what is mentioned hereor in HPI. Please also see scanned form in Media. Objective: Constitutional: ? There were no vitals taken for this visit. There is no height or weight on file to calculate BMI. She is in no apparent distress. Psych: The patient is alert and oriented x3. Eyes: ? Eyes show no scleral icterus. Respiratory: ? Respiratory effort is normal. Gastrointestinal: ? Soft, nontender, nondistended. ? No masses. ? The bladder is not palpable. ? There is no flank tenderness. Genitourinary: ? InterStim IPG palpable and causes pain with palpation. ? Lead palpable over midline. Labs/Imaging: Leuk Esterase Date Value Ref Range Status 11/25/2017 1+ (A) Neg Final Nitrite Date Value Ref Range Status 11/25/2017 Neg Neg Final Assessment: Heike Salguero is a 52 y.o. female with a history of malfunctioning InterStim Plan: We discussed removal of InterStim. She elects to proceed with this. Consent obtained and will plan for this in January Will need anticoagulation plan given history of Factor V Leiden documented in this encounter Plan of Treatment Not on filedocumented as of this encounter Visit Diagnoses Diagnosis Urinary urgency - Primary Urgency of urination documented in this encounter Care Teams Mill Tender Washing Relationship Specialty Start Date End Date Mere Gonzales MD PCP - General 10/05/17 07/30/[address] [place] [phone] documented as of this encounter
--- OUTSIDE RECORDS SUMMARY | 2021-11-28 01:54 | XMS_ITS | Encounter Summary ---
:1965 Author Organization [facility] Address [address] [place] [address] Care Team Providers Name Role Phone Mere Gonzales MD Primary Care Provider Reason for Referral Radiology Services (Routine) - Receiving Office to Obtain Authorization Specialty Diagnoses / Procedures Referred By Contact Ally garza To Contact Diagnoses Nephrolithiasis Alex Nowak MD Procedures ABDOMEN AP [address] [place] [address] [address] [place] [address] [id number] Referral ID Status Reason Start Expiration Visits Visits Date Date Requested Authorized [id number] Receiving Office 11/11/2017 1 1 to Obtain Authorization ollow Up (3 - 10 Business Days) - Specialty Report Received Specialty Diagnoses / Procedures Referred By Contact Ally garza To Contact Urology Diagnoses Nephrolithiasis Alex Nowak MD Grunert, Richard Thomas[address] THEODORA HERNÁNDEZ [address] [place] [phone] [place], [address] [place] [address] Phone: Fax: Referral ID Status Reason Start Expiration Visits Visits Date Date Requested Authorized [id number] Specialty Specialty 11/11/2017 1 1 Report Services Received Required Question Answer Reason for Request: POV s/p left ureteroscopy; c ysto stent pull Scheduling Comments (optional ? 2 week describe specific scheduling needs if applicable): Comments 2 week, cysto stent removal, KUB to be d one prior to appt Encounter Details Date Type Department Care Team Description 11/11/2017 [facility] Alex Ren Nephr olithiasis Encounter Perioperative MD [place] (Primary Dx) Services- [address] [address] [address], [place] [address] Social History Tobacco Use Types Packs/Day [...] Sign Reading Time Taken Comments Blood Pressure 123/67 11/11/20171929 EDT Pulse - - Temperature 36 ??C (96.8 ??F) 11/11/20171929 EDT Respiratory Rate 17 11/11/20171929 EDT Oxygen Saturation 98% 11/11/20171929 EDT Inhaled Oxygen Concentration - - Weight 50.3 kg (111 lb) 11/10/2017727 EDT Height 160 cm (5' 3) 11/10/2017727 EDT Body Mass Index 19.66 11/10/2017727 EDT documented in this encounter Discharge Diagnoses Diagnosis N20.0 Calculus of kidney-N20.0[ICD-10-CM ] Z87.442 Personal history of urinary calc dick-Z87.442[ICD-10-CM] D68.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 Next dose could be given in 6hrs @12:00am (midnight) Pyridium 200mg given last @6:00pm. Next dose could be given in 8hrs @2:00am Diclofenec (an anti-inflammatory) can be taken 2x daily (every 12hrs). Do not take this AND any other NSAIDs (i.e Motrin, Advil, Ibuprofen, Aleve) Flomax to be taken daily Diet: Resume preoperative diet Activity: Activity as tolerated It is normal to have pain associated with the ureteral stent. This pain may be worse with activity or movement. Driving: No driving while taking narcotic pain medication Skin/Wound Care: Resume normal skin care. Bathing: No restrictions Pending Results: Stone analysis Symptoms to Call Your Doctor About: Burning with urination Chest pain Increased blood in urine Pain unrelieved by medication Shortness of breath Temperature greater than 101 degrees F Urinary retention Appointments: You will follow-up in about [address] Ren to have your stent removed in the office. If you do not hear from us in 1 week or if you have any questions, please call the clinic directly at . What can I expect from having a ureteral stent? Most individuals find that having a ureteral stent after surgery for kidney stones can be irritatingbut is nothing like the pain of having a kidney stone. Most are able to go back to work without restrictions. Patients usually described being able to ???feel?? the stent in place when bending, lifting or twisting. This is common. You may experience flank and groin pain from the stent. After the procedure, you will be prescribed a number of medications that may help with this pain. Some medications work better for stent pain in certain people than others, so it is important to find a regimen that works for you. It is important to keep taking uxin-cma-wwaqgcy Tylenol (acetaminophen) and ibuprofen unless your doctor has recommended against taking these medications. Because of how the stent sits in your bladder, it may cause feelings of having to urinate more than you usually do. There may be some mild burning with urination. It can also cause blood in the urine (hematuria). Blood in the urine is like food coloring: It only takes a few drops to make it look bright red. You may notice anywhere from light pink clear urine to something resembling Lukasz- Aid. This is common and can be expected from the stent. Blood in the urine can go away and then come back spontaneously while the stent is in place. Increase the amount of water you are drinking and make sure you stay hydrated. Please call us if you start passing clots in your urine greater than a dime to quarter in size. You may also notice pain in your flank when you urinate. This is because the stent allows urine to travel back up to the kidney and can cause kidney irritation. This will resolve when the stent is removed. Irritation from the stent can persist even after the stent has been removed. This is because removalof the stent can cause temporary swelling of the tube (ureter) connecting the kidneys to the bladder. This usually resolves within 6 hours after the stent has been removed. If it continues please give us a call. How long will the stent remain in my body? The stent will remain in place for approximately 2 weeks. It will be removed in the office. The procedure to remove it does not require any anesthesia and takes about 1 minute. A flexible camera scope is placed into the bladder allowing the surgeon to see the stent and remove it. This is generally extremely well tolerated. What are things to look out for? Please call us if you experience any of the following: ? ? Urinary retention (no urination for >6 hours) ??? Fever greater than 101.5 F ??? Passing clots larger than a dime, or dark purple urine that resembles grape juice ??? Pain that is not controlled by medications provided ??? Significant pain not controlled by medications lasting more than 6 hours after stent removal documented in this encounter Medications at Time of Discharge Medication Sig Dispensed Refills Start Date End Date acetaminophen (TYLENOL) Take 2 Tabs by mouth 0 11/26/2017 325 mg tablet every 4 hours as needed for Pain. clobetasol (TEMOVATE) Apply topically 2 0 01/24/2018 0.05 % ointment times daily. cyanocobalamin (VITAMIN Take 500 mcg by mouth 0 08/29/2021 B-12) 500 mcg tablet daily. dextroamphetamine-amphet Take 1 Tab by mouth 30 Tab 0 11/26/2017 amine (ADDERALL) 15 mg daily. Daily Max: 15 tablet mg diclofenac (VOLTAREN) 50 Take 1 Tab by mouth 2 10 Tab 0 11/11/2017 11/26/2017 mg EC tablet times daily as needed for Pain. ergocalciferol, vitamin Take by mouth. 0 08/05/2020 D2, (VITAMIN D ORAL) hydrOXYzine (ATARAX) 25 Take 25 mg by mouth 0 11/26/2017 mg tablet every evening. oxybutynin (DITROPAN-XL) Take 1 Tab by mouth 90 Tab 3 11/26/2017 5 mg CR tablet daily. phenazopyridine Take 1 Tab by mouth 3 9 Tab 0 8 11/14/2017 (PYRIDIUM) 200 mg tablet times daily as needed for up to 3 days for Pain. polyethylene glycol Instructions mailed 4000 mL 0 018 01/24/2018 (GOLYTELY;NULYTELY) once procedure [id number] scheduled. Questions: gram suspension [facility] Gastroenterology: [phone] or GI Doctor's Office. predniSONE (DELTASONE) 1 Take 4 Tabs by mouth 120 Tab 0 0 10/29/2017 02/04/2018 mg tablet daily. Total dose 9 mg(+5mg tab) predniSONE (DELTASONE) 5 Take 1 Tab by mouth 30 Tab 0 11/22/2017 mg tablet daily. Total dose 9 mg tamsulosin (FLOMAX) 0.4 Take 1 Cap by mouth 14 Cap 0 11/25/2017 mg capsule daily for 14 days. documented as of this encounter Ordered Prescriptions Prescription Sig Dispensed Refills Start Date End Date acetaminophen (TYLENOL) 325 Take 2 Tabs by 0 10/2411/26/2017 mg tablet mouth every 4 hours as needed for Pain. phenazopyridine (PYRIDIUM) Take 1 Tab by 9 Tab 0 201711/14/2017 200 mg tablet mouth 3 times daily as needed for up to 3 days for Pain. diclofenac (VOLTAREN) 50 mg Take 1 Tab by 10 Tab 0 11/1111/26/2017 EC tablet mouth 2 times daily as needed for Pain. tamsulosin (FLOMAX) 0.4 mg Take 1 Cap by 14 Cap 0 201711/25/2017 capsule mouth daily for 14 days. documented in this encounter Discharge Disposition Disposition Code Departure Means Destination Home or Self Care documented in this encounter Progress Notes Buffy Armando RN - 11/10/2017 1127 EDT 11/10/2017- spoke with Mere Atkins from hematology service. She states that no special hematological needs for this type of surgery, but pt. should have hem consult postop in case of any further illnesses or surgeries. documented in this encounter H&P Notes Alex Nowak MD - 11/11/2017 1526 EDT The preoperative history and physical which was performed within 30 days of this procedure has been reviewed and the clinically appropriate elements of the physical examination havebeen repeated. There are no changes to the documented history and physical or if so such changes aredocumented below Alex Nowak MD 11/11/2017 15:26 Alex Molina MD - 11/11/2017 1525 EDT The preoperative history and physical which was performed within 30 days of this procedure has been reviewed and the clinically appropriate elements of the physical examination havebeen repeated. There are no changes to the documented history and physical or if so such changes aredocumented below Alex Nowak MD 11/11/2017 15:25 T Fidelina Arana PA - 11/10/2017 0815 EDT Subjective: Patient ID: Heike Salguero is an 52 y.o. female. Chief Complaint Patient presents with ??? Pre-op Exam Gela/Kidney stone removal/11.11.17 HPI Comments: Surgery: kidney stone removal with basket Surgeon: Gela Date: 11.11.17 HPI: pt has had a [...] pain ??? Constipation ??? PMR (polymyalgia rheumatica) ([facility]) ??? Raynaud phenomenon ??? Frequent UTI ??? Factor V Leiden ([facility]) Outpatient Prescriptions Marked as Taking for the [...] examination ??? Nephrolithiasis ??? Factor V Leiden ([facility]) ??? FH: factor V Leiden mutation EKG: [...] currently on 7.5mg daily, seeing Rheum at [facility] ASA 81mg daily for now until f/u with Hematology Pt does not smoke, not on hormones, no long trips or flights. Reference: Revised Cardiac Risk Index (Amaro - six independent predictors of cardiac complications): 1. High risk surgery (vascular, intraperitoneal, intrathoracic) 2. History of CAD (history of DC or a positive ETT, current ischemic chest pain, use of nitrates, orQ waves on ECG with pathological Q waves. (Don't count previous CABG unless another of the factors is present) 3. Hx CHF 4. Hx Stroke 5. Cr >2.0 mg/dl 6. DM on insulin YAZAN Tan 11/10/2017 8:12 enny Ryan NP - 11/08/2017 1530 EDT Subjective: [...] pain ??? Constipation ??? PMR (polymyalgia rheumatica) ([facility]) ??? Raynaud phenomenon ??? Frequent UTI ??? Factor V Leiden ([facility]) Past Medical History: Diagnosis Date ??? Chronic abdominal pain ??? Factor V Leiden ([facility]) 10/29/2017 ??? Frequent UTI 10/29/2017 ??? PMR (polymyalgia rheumatica) ([facility]) ??? Post herpetic neuralgia ??? [...] gram suspension Instructions mailedonce procedure scheduled. Questions: [facility] Gastroenterology: [phone] or GI Doctor's Office. 4000 mL 0 [...] well as to re-evaluate her urinary symptoms. Heike verbalized understanding and is amenable to this plan. This case was discussed with Dr. Ren, including my assessment and plan. Jenny Ryan NP documented in this encounter OR Notes OR Surgeon - Alex Ren MD - 11/11/2017 0000 EDT OPERATIVE REPORT SERVICE DATE: 11/11/2017 PREOPERATIVE DIAGNOSIS: Left kidney stone. POSTOPERATIVE DIAGNOSIS: Left kidney stone. PROCEDURE: Left ureteroscopy and laser, left retrograde pyelogram, left stent placement. SURGEON: Alex Ren MD FACS DENTAL DIRECTOR: Alex Nowak MD ANESTHESIA: INDICATIONS: The patient has a history of a 1.5 cm left UPJ stone. She has been managed and had leftflank pain for some time now. She eventually had a CT scan, which demonstrated a 1.5 cm left UPJ stone. It appeared to be relatively soft. NARRATIVE: The patient was taken to the operating room and underwent site ID. The WHO checklist part1 was completed. She was in supine position and underwent LMA anesthesia. She had Venodynes placed, was then placed in the lithotomy position. Her perineum was Betadine prepped and sterilely draped in the usual fashion. The patient had also received IV ciprofloxacin. WHO checklist part 2 was completed. Next, a 22-[place] cystoscope was then inserted. The bladder was examined. There were no stones or tumors seen within the bladder. The patient's left ureteral orifice was then identified. A left retrograde pyelogram plus 6-[place] open- ended catheter was then inserted. We injected a 50/50 contrast mixture, a total of 8 mL. This demonstrated a normal distal, mid and proximal ureter. The renal pelvis wasdilated. We could not visualize the stone. We subsequently placed a Sensor guidewire, an 8/10 dilator. The distal ureter dilated with ease. We placed an 0.025 Sensor wire and then placed ureteroscope up the length of the ureter into the kidney.In the renal pelvis, we saw edema at the UPJ from chronic obstruction followed by a large but very yellow and soft- appearing stone. The patient subsequently underwent a dusting procedure, varying between a setting of 0.[address] to 0.5 and 80. We were able to fragment the stone with excellence. There were no larger fragments remaining at the end of the procedure. We inspected the upper,middle and lower pole calices following the procedure and there were only small amounts of stone dust present. We subsequently placed a 7 x 24 stent into the left kidney done under fluoroscopic and cystoscopic guidance. Proper positioning was noted of the stent. The patient subsequently had her bladder drained,was awakened and returned to the recovery room in satisfactory condition. There were no complications. Unless otherwise noted, there were no complications, no blood loss, no cultures obtained, no specimens removed, and no drains retained. Alex Ren MD FACS 05 29 PM / Alex Ren MD FACS ln Confirmation: [id number] Dictation ID: [id number] documented in this encounter Miscellaneous Notes Anesthesia Post-Eval - Ashutosh Rangel MD - 11/11/20171999 EDT Anesthesia Post op Note Heike Salguero [id number] Anesthesia received: General; Vital Signs: Temp: 36 ??C (96.8 ??F), Heart Rate: 71 BPM, BP: 123/67, Resp: 17, SpO2: 98 % Vital signs Stable: Yes Consciousness: Recovered to baseline Patient's participation in evaluation:Able to participate Temperature Status: Normothermic Respiratory Status: Airway patent Supplemental O2: Room air Oxygen Saturation: Within patient's normal range Cardiovascular Status: Within patient's normal range Post-op Hydration: Adequate Nausea / Vomiting: None Pain Control: Adequate Current Pain Score: Numeric Pain Level (Scale 1-10): 5 Post-op Assessment: Tolerated procedure well Disposition: Home Complications: No apparent anesthetic complications Ashutosh Rangel MD 11/11/2017 20:00 rief Op Note - Alex Nowak MD - 11/11/2017 1726 EDT BRIEF OP NOTE Surgeon: Dr. Ren Medical Doctor Md: Estrella Thorne MS4 Pre-op diagnosis: Left UPJ stone Post-op diagnosis: same Procedure: Cystoscopy, left retrograde pyelogram, left ureteroscopy with laser lithotripsy, left ureteral stent placement Anesth: general Findings: Retrograde pyelogram demonstrating dilated calyces, no stone seen, ureter normal appearingwithout filling defects; Large left UPJ stone visualized on flexible ureteroscopy, successfully dusted without residual fragments, left ureteral stent placed without difficulty EBL: minimal IVF: Per anesth UOP: NR Specimen: none Cultures: none Foreign Material Retained: 7 x 24 JJ left ureteral stent Complications: none Dispo: PACU in stable condition, then home Alex Nowak MD 11/11/2017 17:26 documented in this encounter Plan of Treatment Scheduled Orders Name Type Priority Associated Diagnoses Order S chedule ABDOMEN AP 1 VIEW Imaging Routine Nephrolithiasis Ordered : 11/11/2017 Scheduled Referrals Name Type Priority Associated Diagnoses Order S chedule AMB CONS/FOLLOW Outpatient Referral Routine Nephrolithiasis Or dered: [facility] 11/11/2017 documented as of this encounter Procedures Procedure Name Priority Date/Time Associated Comments Diagnosis IMPLANT RECORD - 11/15/2017 13:51 SCANNED EDT ECG REPORT - SCANNED 11/15/2017 13:51 EDT RETROGRADE UROGRAM Routine 11/11/2017 17:42 Resul ts for this EDT procedure are i n the results section. documented in this encounter Results RETROGRADE UROGRAM (11/11/2017 17:42 EDT) Anatomical Region Laterality Modality Other Specimen Narrative [facility] - 11/11/2017 17:42 EDT Non Reportable Exam Procedure Note LINING LAYER, IMAGING - 11/11/2017 Non Reportable Exam Performing Organization Address City/State/ZIP Code Phon e Number [facility] documented in this encounter Visit Diagnoses Diagnosis Nephrolithiasis - Primary Calculus of kidney documented in this encounter Administered Medications Inactive Administered Medications - up to 3 most recent administrations Medication Order MAR Action Action Date Dose Rate Site acetaminophen (TYLENOL) tablet Given 11/11/2017 17:55 EDT 1,000 mg 1,000 mg 1,000 mg, oral, PRN, 1 dose, Starting on Barb 11/11/17 at 1720, Until Barb 11/11/17 at 1755, Fever, Routine, Recovery (only) atropine 0.1 mg/mL syringe 0.5 mg 0.5 mg, intravenous, PRN, Starting on Barb 11/11/17 at 1 720, Until Barb 11/11/17 at 2236, Symptomatic HR < 50, Routine, Recovery (only) diphenhydrAMINE (BENADRYL) injection 12. 5 mg 12.5 mg, intravenous, PRN, 1 dose, Starting on Barb 10/24 at 1720, Until Barb 11/11/17 at 2236, nausea, Routine, Recovery (only) fentaNYL citrate (PF) 50 mcg/mL injection 25-50 Given 11/11/2017 18:06 EDT 50 mcg mcg 25-50 mcg, intravenous, EVERY 5 MIN PRN, Starting on Barb 11/11/17 at 1720, Until Barb 11/11/17 at 2236, Pain, Routine, Recovery (only) Given 11/11/2017 17:55 EDT 50 mcg lactated ringers (LR) infusion New Bag 11/11/2017 14:04 EDT 25 mL/hr at 25 mL/hr, intravenous, CONTINUOUS, Starting on Barb 11/11/17 at 1400, Until Barb 11/11/17 at 2236, Routine, Pre Op Day of Surgery lactated ringers (LR) infusion New Bag 11/11/2017 18:06 EDT 75 mL/hr at 75 mL/hr, intravenous, CONTINUOUS, Starting on Barb 11/11/17 at 1745, Until Barb 11/11/17 at 2236, Routine, Recovery (only) Rate Documented 11/11/2017 17:40 EDT 75 mL/hr naloxone (NARCAN) injection 0.2 mg 0.2 mg, intravenous, PRN, Starting on Barb 11/11/17 at 1 720, Until Barb 11/11/17 at 2236, Opioid Reversal, Routine, Recovery (only) oxyCODONE (ROXICODONE) immediate release tablet Given 2017 18:41 EDT 5 mg 5-10 mg 5-10 mg, oral, EVERY 30 MINUTES PRN, 2 doses, Starting on Barb 11/11/17 at 1720, Until Barb 11/11/17 at 1841, Pain, Routine, Recovery (only) Given 11/11/2017 17:54 EDT 5 mg phenazopyridine (PYRIDIUM) tablet 200 mg Given 11/11/2017 17:55 EDT 200 mg 200 mg, oral, ONCE PRN, 1 dose, Starting on Barb 11/11/17 at 1732, Until Barb 11/11/17 at 1755, Pain, Routine documented in this encounter Active and Recently Administered Medications Times are shown in EDT. Scheduled Medication Order 11/09/2017 11/10/2017 11/11/2017 ciprofloxacin (CIPRO) IVPB 400 mg 1545 (Canceled Entry - Provider: Evi Job User Admin - Comment: Automatically canceled at discontinue of medication order) 400 mg, intravenous, Administer over 60 Minutes, PRE-OP ONCE, 1 dose, Barb 11/11/17 at 1545, Controlled antibiotic, has ID approved? No: Pre-operative surgical prophylaxis, Routine Continuous Medication Order 11/09/2017 11/10/2017 11/11/2017 lactated ringers (LR) infusion 1 404 (New Bag - Provider: Uche Puri RN)1739 (Completed - Provider: Paola Blevins, RN) at 25 mL/hr, intravenous, CONTINUOUS, St arting Barb 11/11/17 at 1400, Until Barb 11/11/17 at 2236, Routine lactated ringers (LR) infusion 1 739 (Continued Infusion - Provider: Paola Blevins, RN)1740 (Rate Documented - Provider: Paola Blevins, RN)1806 (New Bag - Provider: Paola Blevins, RN) at 75 mL/hr, intravenous, CONTINUOUS, St arting Barb 11/11/17 at 1745, Until Barb 11/11/17 at 2236, Routine PRN Medication Order 11/09/2017 11/10/2017 11/11/2017 acetaminophen (TYLENOL) tablet 1,000 mg (COMPLETED) 1755 (Given - Provider: Paola Blevins, RN) 1,000 mg, oral, PRN, 1 dose, Starting Th u 11/11/17 at 1720, Until Discontinued, Fever, Routine atropine 0.1 mg/mL syringe 0.5 mg 0.5 mg, intravenous, PRN, Starting Barb at 1720, Until Barb 11/11/17 at 2236, Symptomatic HR < 50, Routine diphenhydrAMINE (BENADRYL) injection 12.5 mg 12.5 mg, intravenous, PRN, 1 dose, Start ing Barb 11/11/17 at 1720, Until Barb 11/11/17 at 2236, nausea, Routine fentaNYL citrate (PF) 50 mcg/mL injection 25-50 mcg 1755 (Given - Provider: Paola Blevins RN)1806 (Given - Provider: Paola Blevins RN) 25-50 mcg, intravenous, EVERY 5 MIN PRN, Starting Barb 11/11/17 at 1720, Until Barb 11/11/17 at 2236, Pain, Routine naloxone (NARCAN) injection 0.2 mg 0.2 mg, intravenous, PRN, Starting Barb at 1720, Until Barb 11/11/17 at 2236, Opioid Reversal, Routine oxyCODONE (ROXICODONE) immediate release tablet 5-10 mg (COMPLET ED) 1754 (Given - Provider: Paola Blevins RN)1841 (Given - Provider: Paola Blevins RN) 5-10 mg, oral, EVERY 30 MINUTES PRN, 2 d oses, Starting Barb 11/11/17 at 1720, Until Discontinued, Pain, Routine phenazopyridine (PYRIDIUM) tablet 200 mg (COMPLETED) 1755 (Given - Provider: Paola Blevins RN) 200 mg, oral, ONCE PRN, 1 dose, Starting Barb 11/11/17 at 1732, Until Barb 11/11/17 at 2359, Pain, Routine documented in this encounter Orders Medications Ordered That Might Not Have Count Last Ord ered Date First Ordered Date Been Administered acetaminophen (TYLENOL) solution unit dose 1 11/11 cup 995 mg atropine 0.1 mg/mL syringe 0.5 mg 1 11/11/2017 ciprofloxacin (CIPRO) IVPB 400 mg 1 11/11/2017 diphenhydrAMINE (BENADRYL) injection 12.5 1 2017 mg naloxone (NARCAN) injection 0.2 mg 1 11/11/2017 Procedures Count Last Ordered Date First Ordered Date ECG REPORT - SCANNED 1 11/15/2017 IMPLANT RECORD - SCANNED 1 11/15/2017 Nursing Count Last Ordered Date First Ordered Date PLACE SEQUENTIAL COMPRESSION DEVICE 1 11/11/2017 Transfer Count Last Ordered Date First Ordered Date NOTIFY PPS PACU PATIENT DISCHARGE 1 11/11/2017 NOTIFY PPS PATIENT ARRIVAL IN PACU 1 11/11/2017 Discharge Count Last Ordered Date First Ordered Date DISCHARGE PATIENT 1 11/11/2017 documented in this encounter Care Teams Soa Integration Developer Relationship Specialty Start Date End Date Mere Gonzales MD PCP - General 10/05/17 07/30/20 [address] [place] [id number] documented as of this encounter
--- OUTSIDE RECORDS SUMMARY | 2021-11-28 01:54 | XMS_ITS | Encounter Summary ---
:1965 Author Organization [facility] Address [address] [place] [address] Care Team Providers Name Role Phone Mere Gonzales MD Primary Care Provider Encounter Details Date Type Department Care Team Description 11/05/2017 Hospital Encounter [facility] [employer] [address] [place] [address] Social History Tobacco Use Types Packs/Day Years [...] -5.86 scheduled. Questions: gram suspension [facility]: [phone] or GI Doctor's Office. predniSONE (DELTASONE) 1 [...] on filedocumented in this encounter Care Teams Integrated Marketing Specialist Relationship Specialty Start Date End Date Mere Gonzales MD PCP - General 10/05/17 07/30/20 [address] [place] [address] documented as of this encounter
--- OUTSIDE RECORDS SUMMARY | 2021-11-28 01:54 | XMS_ITS | Encounter Summary ---
:1965 Author Organization [facility] Address [address] [place] [address] Care Team Providers Name Role Phone Mere Gonzales MD Primary Care Provider Encounter Details Date Type Department Care Team Description 11/22/2017 Phlebotomy Only [facility] Cell Manager, Homoz ygous Factor V Leiden mutation ([facility]); [facility] Raynaud's disease without ga ngrene [address], [place] [id number] Social History Tobacco Use Types Packs/Day Years [...] Procedure Name Priority Date/Time Associated Comments Diagnosis FACTOR 8 ASSAY Routine 11/22/2017 16:25 Homozygous Factor V Re sults for this EDT Leiden mutation procedure ar e in ([facility]) the results section. LUPUS ANTICOAGULANT Routine 11/22/2017 16:24 Homozygous Factor V Results for this CASCADE EDT Leiden mutation procedure ar e in ([facility]) the results Raynaud's disease section. without gangrene PROTEIN S ACTIVITY Routine 11/22/2017 16:24 Homozygous Factor V Results for this EDT Leiden mutation procedure ar e in ([facility]) the results section. BETA 2 GLYCOPROTEIN Routine 11/22/2017 16:24 Raynaud's disease Results for this IGA EDT without gangrene procedure are in Homozygous Factor V the resu lts Leiden mutation section. ([facility]) PHOSPHOLIPID ANTIBODY Routine 11/22/2017 16:24 Homozygous Fact or V Results for this EDT Leiden mutation procedure ar e in ([facility]) the results Raynaud's disease section. without gangrene PTT Routine 11/22/2017 16:24 Homozygous Factor V Resu lts for this EDT Leiden mutation procedure ar e in ([facility]) the results section. PROTIME Routine 11/22/2017 16:24 Homozygous Factor V Resu lts for this EDT Leiden mutation procedure ar e in ([facility]) the results section. ANTITHROMBIN, Routine 11/22/2017 16:24 Homozygous Factor V Res ults for this FUNCTIONAL EDT Leiden mutation procedure ar e in ([facility]) the results section. PROTEIN C ACTIVITY Routine 11/22/2017 16:24 Homozygous Factor V Results for this EDT Leiden mutation procedure ar e in ([facility]) the results section. documented in this encounter Results FACTOR 8 ASSAY (11/22/2017 16:25 EDT) Pathologist Sig nature Factor 8 Assay 112 53 - 143 % [facility] ORY SERVICES Specimen Blood specimen (specimen) - Blood Performing Organization Address City/State/ZIP Code Phon e Number [facility] [address] [place] [address] SERVICES PTT (11/22/2017 16:24 EDT) Pathologist Sig nature PTT 30 26 - 37 secs [facility] LABORATOR Y SERVICES Specimen Blood specimen (specimen) - Blood Performing Organization Address [facility]/ZIP Code Phon e Number [facility] [address] [place] [address] SERVICES PROTIME (11/22/2017 16:24 EDT) Pro Time 11.4 10.3 - 13.4 [facility] secs LABORATORY SERVICES I.N.R. 1.0 0.9 - 1.1 [facility] Comment: Ratio LABORATORY SERVICES Moderate Intensity Coumadin INR = 2.0-3.0 Adjustments in anticoagulant therapy dose should be based upon the INR and NOT the Pro Time. Specimen Blood specimen (specimen) - Blood Performing Organization Address [facility] Code Phon e Number [facility] [address] [place] [address] SERVICES ANTITHROMBIN, FUNCTIONAL (11/22/2017 16:24 EDT) Antithrombin, 105 85 - 125 % [facility] Funct. Comment: LABORATORY SERVICES CAUTION: Antithrombin III levels can be INCREASED by coumadin and DECREASED by heparin. Results must be interpreted with caution for patients on these drugs. Results may be overestimated in the presence of direct thrombin inhibitors such as Hirudin (Refludan) and Argatroban (Novastan). Acute illness and/or thrombosis may infl uence test results in an unpredictable manner, therefore results should be int erpreted with caution in this setting. Specimen Blood specimen (specimen) - Blood Performing Organization Address [facility] Phon e Number [facility] [address] [place] [address] SERVICES PROTEIN S ACTIVITY (11/22/2017 16:24 EDT) Protein S 82 64 - 147 % [facility] Activity Comment: LABORATORY SERVICES a. ??Acquired Protein S defi ciencies are associated with vitamin K antagonists, acute thrombotic events, , vitamin K deficie ncy, L-aspariginase treatment and inflammatory syndrome. Def iciencies may or may not be present in liver disease and DIC. b. ??Results may be affected by plasma h eparin levels greater than 1.6U/mL for UFH or greater than 1.8 U/mL for LMWH. c. ??Results may be overestimated in the presence of d irect Xa inhibitors (rivaroxaban, apixaban, edoxaban) and direct thr ombin inhibitors (dabigatran, argatroban, bivalirudin). d. ??Acute illness and/or thrombosis may influence roseline t results in an unpredictable manner, therefore results should b e interpreted with caution in this setting. e. ??Age and hormonal status may affect the normal ran ge for females. Specimen Blood specimen (specimen) - Blood Performing Organization Address [facility] Phon e Number [facility] [address] [place] [address] SERVICES PROTEIN C ACTIVITY (11/22/2017 16:24 EDT) Protein C Clot 116 71 - 199 % [facility] Comment: LABORATORY SERVICES a. ??Acquired Protein C defi ciencies are associated with vitamin K antagonists, acute thrombotic events, vitamin K deficiency, liver disease and DIC. b. ??Results may be affected by plasma heparin levels greater than 1.5 U/mL for UFH and 0.8 for LMWH. c. ??Results may be overestimated in the presence of d irect Xa inhibitors (rivaroxaban, apixaban, edoxaban) and direct thr ombin inhibitors (dabigatran, argatroban, bivalirudin). d. ??Acute illness and/or thrombosis may influence roseline t results in an unpredictable manner, therefore results should b e interpreted with caution in this setting. Specimen Blood specimen (specimen) - Blood Performing Organization Address [facility] Phon e Number [facility] [address] [place] [address] SERVICES BETA 2 GLYCOPROTEIN IGA (11/22/2017 16:24 EDT) Beta 2 GP1 Ab IgA <9.4 <15.0 [facility] Comment: (Negative) LABORATORY Performed or Referred by: [facility] mar[facility], [address] U/[place] [address] Specimen Blood specimen (specimen) - Blood Performing Organization Address [facility] Phon e Number [facility] [address] [place] [address] SERVICES CARDIOLIPIN ANTIBODY (11/22/2017 16:24 EDT) Cardiolipin IgG 1.75 GPL [facility] Comment: LABORATORY SERVICES IgG Negative <15 GPL Indeterminate 15 - <20 GPL Low to Medium Positive 20 - 80 GPL Strongly Positive >80 GPL Results were obtained with the INOVA QUANTA Lite ERNESTO I gG and IgM III HEMALATHA kits. Cardiolipin IgG and IgM values obtained with different board handler's assay methods may not be used interchangeably. The magnitude of the reported IgG and IgM levels canno t be correlated to an endpoint titer. Cardiolipin IgM 12.27 MPL [facility] Comment: LABORATORY SERVICES IgM Negative <12.5 MPL Indeterminate 12.5 - <20 MPL Low to Medium Positive 20 - 80 MPL Strongly Positive >80 MPL Results were obtained with the INOVA QUANTA Lite ERNESTO I gG and IgM III HEMALATHA kits. Cardiolipin IgG and IgM values obtained with different board handler's assay methods may not be used interchangeably. The magnitude of the reported IgG and IgM levels canno t be correlated to an endpoint titer. Specimen Blood specimen (specimen) - Blood Performing Organization Address City/State/ZIP Code Phon e Number [facility] [address] [place] [address] SERVICES LUPUS ANTICOAGULANT CASCADE (11/22/2017 16:24 EDT) [facility] LA Barnhart Negative for detection of lupus anticoagulant (LA). [facility] Summary Comment: [facility]ENTER LABORATORY Where clinical suspicion for antiphospholipid sy ndrome is high, it may be SERVICES appropriate to perform alternative LA or aPL assays. The laboratory criteria for Antiphospholipid Syndrome (aPL) include positive testing for one of the following on 2 or more occasion s, atleast 12 weeks apart: 1. Lupus anticoagulant (LA), 2. Cardiolipin antibodies (IgG or IgM) in medium or hi gh titer, 3. Beta 2 glycoprotein 1 antibodies (IgG of IgM). Solid-phase assays for Beta2 glycoprotei n 1 (B2GP1) and Cardiolipin antibodies are recommended when evaluating a patient for antipho spholipid syndrome. ?? Correlation with those results is advised. Reviewed by Dr. Fidelina De La Rosa at 1515 on 11.25.17 Dilute Viper 28.0 secs [facility] Venom Comment: [facility] Reference Range = 27.2-36.9 secs SERVICE S Results must be interpreted with caution if the patien t is on oral anticoagulant, direct thrombin inhibitors or heparin. Silica Clotting 37.8 sec [facility] Time Comment: [facility] Reference Range = 30.2-48.4 secs SERVICES Results must be interpreted with caution if the patien t is on oral anticoagulant, direct thrombin inhibitors or heparin. Specimen Blood specimen (specimen) - Blood Performing Organization Address City/State/ZIP Code Phon e Number [facility] [address] [place] [address] SERVICES documented in this encounter Visit Diagnoses Diagnosis Homozygous Factor V Leiden mutation ([facility]) Primary hypercoagulable state Raynaud's disease without gangrene documented in this encounter Care Teams Rn Intensive Care Unit Relationship Specialty Start Date End Date Mere Gonzales MD PCP - General 10/05/17 07/30/20 [address] [place] [address] documented as of this encounter
--- OUTSIDE RECORDS SUMMARY | 2021-11-28 01:54 | XMS_ITS | Encounter Summary ---
:1965 Author Organization [facility] Address [address] [place] [address] Care Team Providers Name Role Phone Elle Cates DO Primary Care Provider Reason for Referral Consult (3 - 10 Business Days) - Closed Specialty Diagnoses / Procedures Referred By Contact Refer red To Contact Urology Diagnoses Kidney stone Festus Mayo PA-C [address] [facility] [address] [place] [id number] Referral ID Status Reason Start Date Expiration Date Visits V isits Requested Authorized [id number] Closed Specialty 03/23/2016 1 1 Services Required Question Answer Reason for Request: renal colic, 3mm stone, recu rrent episodes of pain in past month Reason for Visit Reason Comments Flank Pain Sudden onset of left sided f lank pain w/ radiation to groin, N/V for past three hours. H/O kidney ston es, these sx worse Encounter Details Date Type Department Care Team Description 03/23/2016 Emergency [facility] Festus Mayo PA-C [address] [facility] [address] [place], [place] [id number] Kidney stone (Primary Emergency Department - Emergency, MD Luci Dx) [address] [facility] [address] [place], [place] [address] Social History Tobacco Use Types Packs/Day Years [...] Sign Reading Time Taken Comments Blood Pressure 117/73 03/23/2016 2146 EST Pulse 72 03/23/2016 1458 EST Temperature 36.3 ??C (97.3 ??F) 03/23/2016 1458 EST Respiratory Rate 16 03/23/2016 2146 EST Oxygen Saturation 100% 03/23/2016 2146 EST Inhaled Oxygen Concentration - - Weight - - Height - - Body Mass Index - - documented in this encounter Discharge Diagnoses Diagnosis N13.2 Hydronephrosis with renal and uret eral calculous obstruction-N13.2[ICD-10-CM] Z87.442 Personal history of urinary calc dick-Z87.442[ICD-10-CM] documented in this encounter Discharge Instructions InstructionsMoFestus borja PA - 03/23/2016 Take tylenol 650mg every 6 hours as needed for pain (call your pcp to discuss if ok to take ibprofen) Take oxycodone every 6 hours for breakthrough pain Take zofran every 8 hours if needed for nausea Follow up with urology Return to ER if fever, pain with urination, or severe abdominal or flank pain documented in this encounter Medications at Time of Discharge Medication Sig Dispensed Refills Start Date End Date clobetasol (TEMOVATE) Apply topically 2 0 01/24/2018 0.05 % ointment times daily. dextroamphetamine-amphet Take 15 mg by mouth 0 10/11/2017 amine (ADDERALL) 15 mg daily. tablet hydrOXYzine (ATARAX) 25 Take 25 mg by mouth 0 11/26/2017 mg tablet every evening. oxyCODONE (ROXICODONE) 5 Take 1 Tab by mouth 15 Tab 0 10/29/2017 mg immediate release every 6 hours as tablet needed for up to 15 doses for Pain. Daily Max: 20 mg predniSONE (DELTASONE) 5 Take by mouth daily. 0 10/29/2017 mg tablet Dose unknown documented as of this encounter Ordered Prescriptions Prescription Sig Dispensed Refills Start Date End Date oxyCODONE (ROXICODONE) 5 Take 1 Tab by mouth 15 Tab 0 10/29/2017 mg immediate release every 6 hours as tablet needed for up to 15 doses for Pain. Daily Max: 20 mg documented in this encounter Discharge Disposition Disposition Code Departure Means Destination Home or Self Care documented in this encounter ED Notes Sebas Toure RN - 03/23/20167 EST Patient A+O, respirations unlabored, skin pink, warm and dry, states pain well controlled, denies nausea or vomiting, NAD. Starter-packs, prescription and discharge instructions provided and reviewed and discharged to home/self care accompanied by spouse. Zayra Smith RN - 03/23/2016 1910 EST Pt feeling improved with medications and fluids. States she has been hesitant to seek treatment for this pain as she is without health insurance at this time. States she was supposed to sign up by thisevening and then pain got so bad she had to come to the ED and no deadline has passed. Given Danitza Arrizaa's name to contact tomorrow for guidance. Festus Kimball PA - 03/23/2016 1713 EST DOS: 03/23/2016 Chief Complaint Patient presents with ??? Flank Pain Sudden onset of left sided flank pain w/ radiation to groin, N/V for past three hours. H/O kidney stones, these sx worse HPI The patient is a 51 y.o. female who presents today with Flank Pain (Sudden onset of left sided flankpain w/ radiation to groin, N/V for past three hours. H/O kidney stones, these sx worse) HPI 51 yo female with PMR and hx of kidney stones who comes in for left flank pain x 4-5 hours. Pain is constant and refers from back to the LLQ. She has had vomiting but no diarrhea. No fever but reports chills. She did not take anything for pain. She states it feels like a kidney stone. She notes similar episodes x 2 since January but never went to a doctor. She has had kidney stones in the past but the last one was 8 years ago. She had one other prior to that. She states however she has never had itconfirmed on imaging. She has no history of abdominal surgery. She currently denies chest pain or dyspnea. She has no history of hypertension, diabetes or smoking. Review of Systems Review of Systems Constitutional: Positive for chills. Respiratory: Negative for shortness of breath. Cardiovascular: Negative for chest pain. Genitourinary: Negative for dysuria. Musculoskeletal: Positive for back pain. Neurological: Negative for weakness. The patient's past medical, family and social history was reviewed and updated as needed. No Known Allergies Vital Signs Temp: 36.3 ??C (97.3 ??F) Pulse: 72 SpO2: 100 % BP: (!) 155/82 BP Device: BP Machine Patient Position: Sitting BP Cuff Location: Right arm O2 Device: None (Room air) Physical Exam Visit Vitals ??? BP (!) 155/82 (BP Cuff Location: Right arm, Patient Position: Sitting) ??? Pulse 72 ??? Temp 36.3 ??C (97.3 ??F) ??? SpO2 100% General appearance: alert, oriented, appears in moderate pain HEENT: conjunctiva pink, sclera white. No icterus. No oral lesions. Throat without erythema. Uvula midline Neck: supple, no lymphadenopathy Cardiac: RRR, no murmurs Pulmonary: lungs clear to auscultation bilaterally. No rales or wheezing Abdomen: Bs active. Soft, Left flank with tenderness. Positive left cva tenderness. No LLQ tenderness. No rebound or guarding. Procedures ED COURSE A medical screening exam was performed. Patient presents with renal colic today. CT shows a 3mm stone. Labs and urine do not suggest infection. Pain was controlled with dilaudid. She states she has factor V leiden so I advised against nsaids. She will take oxycodone and tylenol at home. She will follow up with urology for further management. Return instructions were discussed. Case discussed with . ASSESSMENT AND PLAN Final diagnoses: None DISPOSITION: No disposition on file The patient's pain was managed to an adequate level weighing risk vs. benefit of further medications. Upon departure from the Emergency Department, the patient's pain was 3 on a zero to ten scale. Condition at departure from the Emergency Department: Improved PCP: Elle Izquierdo [facility] Cristy Abebe was available for supervision. 03/23/2016 17:13 No flowsheet data found. documented in this encounter Plan of Treatment Scheduled Referrals Name Type Priority Associated Diagnoses Order S chedule AMB CONS/FOLLOW UP Outpatient Referral Routine Kidney stone Or dered: UROLOGY 03/23/2016 documented as of this encounter Procedures Procedure Name Priority Date/Time Associated Comments Diagnosis CT RENAL COLIC WO STAT 03/23/2016 20:13 Result s for this CONTRAST EST procedure are i n the results section. POCT URINE DIPSTICK, STAT 03/23/2016 18:42 Res ults for this CLINITEK EST procedure are i n the results section. URINE SEDIMENT STAT 03/23/2016 18:37 Results f or this (MICRO) WITHOUT EST procedure ar e in REFLEX TO CULTURE the result s section. COMPLETE BLOOD COUNT STAT 03/23/2016 17:25 Res ults for this AND DIFFERENTIAL EST procedure a re in the results section. BASIC METABOLIC PANEL STAT 03/23/2016 17:25 Re sults for this (BMP) EST procedure are i n the results section. documented in this encounter Results CT RENAL COLIC (03/23/2016 20:13 EST) Anatomical Region Laterality Modality Other Specimen Narrative [facility] - 03/24/2016 9:[address] RENAL COLIC ??03/23/2016 8:13 PM Signs and Symptoms/Comments: ?? Left flank pain, microscopic hematuria Technique: Axial CT images obtained from abdomen immediately superior to level of kidneys through the pelvis without administration of contrast of any kind. Sagittal and coronal reformats generated. Comparison: None Findings: Kidneys, ureters and bladder: There is a 3 mm stone in the left ureteropelvic junction producing mild to moderate hydroureteronephrosis. No other obstruct carmelina stones are seen. There is mild perinephric fat stranding on the left. The urinary bladder is well distended without focal lesions. Uterus, adnexa: The uterus is enlarged.. No adnexal masses are seen. Included lung bases: The lung bases are clear. Unenhanced liver and spleen, as far as i ncluded: A small benign-appearing hypodensity is present in the left lobe of the liver, axial image 42. Gallbladder, pancreas adrenal glands: Th e gallbladder is well distended. There is no intra or extrahep atic biliary ductal dilatation. The adrenal glands are unrem arkable. Bowel: There is no evidence of bowel obs truction or wall thickening. A large amount of stool is present in th e colon. Peritoneal cavity: Small amount of free fluid is seen in the pelvis. Abdominal wall: Unremarkable. Lymphovascular: The aorta is normal in c ourse and caliber without atherosclerotic disease. Musculoskeletal: There are degenerative changes at L5-S1. Impression: 1. ??A 3 mm left ureteropelvic calculus producing mild to moderate hydroureteronephrosis. 2. Moderate amount of stool in the colon . 3. Enlarged uterus, likely fibroid, but could be further evaluated with ultrasound if clinically indicated. I have personally reviewed the images an d the above interpretation and agree with the findings. Procedure Note Hetal Grande MD - 03/24/2016 CT RENAL COLIC 03/23/2016 8:13 PM Signs and Symptoms/Comments: Left flank pain, microscopic hematuria Technique: Axial CT images obtained from abdomen immediately superior to level of kidneys through the pelvis without administration of contrast of any kind. Sagittal and coronal reformats generated. Comparison: None Findings: Kidneys, ureters and bladder: There is a 3 mm stone in the left ureteropelvic junction producing mild to moderate hydroureteronephrosis. No other obstruct carmelina stones are seen. There is mild perinephric fat stranding on the left. The urinary bladder is well distended without focal lesions. Uterus, adnexa: The uterus is enlarged.. No adnexal masses are seen. Included lung bases: The lung bases are clear. Unenhanced liver and spleen, as far as i ncluded: A small benign-appearing hypodensity is present in the left lobe of the liver, axial image 42. Gallbladder, pancreas adrenal glands: Th e gallbladder is well distended. There is no intra or extrahep atic biliary ductal dilatation. The adrenal glands are unrem arkable. Bowel: There is no evidence of bowel obs truction or wall thickening. A large amount of stool is present in th e colon. Peritoneal cavity: Small amount of free fluid is seen in the pelvis. Abdominal wall: Unremarkable. Lymphovascular: The aorta is normal in c ourse and caliber without atherosclerotic disease. Musculoskeletal: There are degenerative changes at L5-S1. Impression: 1. A 3 mm left ureteropelvic calculus pr oducing mild to moderate hydroureteronephrosis. 2. Moderate amount of stool in the colon . 3. Enlarged uterus, likely fibroid, but could be further evaluated with ultrasound if clinically indicated. I have personally reviewed the images an d the above interpretation and agree with the findings. Performing Organization Address [facility]/ZIP Code Phon e Number [facility] (ABNORMAL) POCT URINE DIPSTICK (03/23/2016 18:42 EST) Color YELLOW [facility] Clarity, UA TURBID [facility] Glucose Neg [facility] SERVICES Bilirubin Neg [facility] SERVICES Ketones >=3+ (AA) [facility] SERVICES Specific [place] 1.020 1.001 - 1.035 [facility] Blood 3+ (A) [facility] SERVICES pH 7.5 4.6 - 8.0 [facility] Protein 1+ (A) [facility] SERVICES Urobilinogen 0.2 0.2 - 1.0 [facility] E.U./dl LABORATORY SERVICES Nitrite Neg [facility]AT[facility] SERVICES Leuk Esterase Trace (A) [facility] LABORATORY poultry culler ID [id number]: [facility] Test performed at LABORATORY Emergency SERVICES Department Specimen Urine (substance) - Urine Performing Organization Address [facility]/ZIP Code Phon e Number [facility] [address] [place] [address] SERVICES URINALYSIS MICROSCOPIC ONLY (03/23/2016 18:37 EST) WBC, UA 1 to 5 0 - 5 /HPF [facility] SERVICES RBC, UA 10 to 50 0 - 5 /HPF [facility] Squam Epithel, UA None seen None seen [facility] Renal Epithel, UA None seen None seen [facility] Bacteria, UA None seen None seen [facility] Crystals, UA 1 to 10Comment: /HPF [facility] Calcium Oxalate [facility] SERVICES Hyaline Casts, UA None seen /LPF [facility] UA Comment Microscopic results [facility] Comment: [facility] are unreliable on SERVICES urines unrefrig >2hrs or refrig >8hrs. Mucus, UA Present [facility] Additional Amorphous material [facility] Findings present [facility] Specimen Urine (substance) - Urine Performing Organization Address City/[facility] Code Phon e Number [facility] [address] [place] [address] SERVICES (ABNORMAL) BASIC METABOLIC PANEL (03/23/2016 17:25 EST) Sodium 140 136 - 145 [facility] mEq/L [facility] Potassium 4.1 3.5 - 5.0 [facility] mEq/L [facility] Chloride 101 96 - 110 [facility] mEq/L [facility] CO2 25Comment: Note new 22 - 32 mEq/L [facility] reference range [facility] 12/10/15 SERVICES BUN 13 10 - 26 mg/dl [facility] SERVICES Creatinine 0.76 0.52 - 1.04 [facility] mg/dl [facility] GFR, Calculated 92 >60 [facility] Comment: ml/min/1.73m2 [facility] eGFR calculated using CKD-EPI equation for SERVICES non Americans. Multiply eGFR by 1.16 for Americans. Calcium 10.4 8.5 - 10.5 [facility] mg/dl [facility] SERVICES Calculated Calcium 9.8 8.5 - 10.5 [facility] Comment: mg/dl [facility] Note new formula for calculation SERVICES in use 11/27/2015 Glucose, Serum 122 (H) 70 - 100 [facility] mg/dl [facility] SERVICES Fasting? Unknown [facility] Specimen Blood specimen (specimen) - Blood Performing Organization Address City/State/ZIP Code Phon e Number [facility] [address] [place] [address] SERVICES (ABNORMAL) HEMAGRAM AND DIFFERENTIAL (03/23/2016 17:25 EST) Pathologist Sig nature WBC 11.62 4.0 - 12.4 [facility] LABORATORY SERVICES RBC 5.14 (H) 3.86 - 5.04 [facility] LABORATORY SERVICES Hemoglobin 16.1 (H) 11.6 - 15.2 [facility] gm/dl LABORATORY SERVICES HCT 45.9 (H) 34.9 - 44.4 % [facility] SERVICES MCV 89 81 - 98 fl [facility] SERVICES MCH 31.3 26.7 - 33.3 pg [facility] SERVICES MCHC 35.1 32.1 - 35.9 [facility] gm/dl LABORATORY SERVICES RDW-CV 11.9 11.7 - 14.6 % [facility] SERVICES RDW-SD 38.9 37.6 - 50.3 fl [facility] SERVICES PLT 419 (H) 141 - 377 K/[facility] LABORATORY SERVICES MPV 9.0 (L) 9.5 - 12.7 fl [facility] SERVICES Neutrophils 86.7 % [facility] SERVICES Lymphocytes 6.7 % [facility] SERVICES Monocytes 5.9 % [facility] SERVICES Eosinophils 0.0 % [facility] SERVICES Basophils 0.3 % [facility] SERVICES Immature Grans 0.4 % [facility] SERVICES ABS Neutrophils 10.07 (H) 2.20 - 8.85 [facility] LABORATORY SERVICES ABS Lymphs 0.78 (L) 1.09 - 3.30 [facility] LABORATORY SERVICES ABS Monocytes 0.68 0.1 - 0.8 /[facility] LABORATORY SERVICES ABS Eosinophils 0.00 (L) 0.03 - 0.61 [facility] LABORATORY SERVICES ABS Basophils 0.04 0.01 - 0.11 [facility] LABORATORY SERVICES ABS Immature Grans 0.05 0 - 0.06 [facility] LABORATORY SERVICES Type of Diff: Automated [facility] SERVICES Specimen Blood specimen (specimen) - Blood Performing Organization Address City/State/ZIP Code Phon e Number [facility] [address] [place] [address] SERVICES documented in this encounter Visit Diagnoses Diagnosis Kidney stone - Primary Calculus of kidney documented in this encounter Administered Medications Inactive Administered Medications - up to 3 most recent administrations Medication Order MAR Action Action Date Dose Rate Site electrolyte-A (PLASMALYTE-A) bolus New Bag 03/23/2016 19:10 EST 1, 000 mL 1,000 mL 1,000 mL, intravenous, NOW X1, 1 dose, On Wed03/23/16 at 1715 New Bag 03/23/2016 17:28 EST 1,000 mL HYDROmorphone (DILAUDID) injection 0.5 m g Given 03/23/2016 17:48 EST 0.5 mg 0.5 mg, intravenous, NOW X1, 1 dose, On Wed03/23/16 at 1715, STAT HYDROmorphone (DILAUDID) injection 0.5 m g Given 03/23/2016 21:19 EST 0.5 mg 0.5 mg, intravenous, NOW X1, 1 dose, On Wed03/23/16 at 2115, STAT ondansetron (PF) (ZOFRAN) 4 mg/2 mL inje ction 1 dose, Starting on Wed03/23/16 at 2110, Until 02/24 at 2119 ondansetron (PF) (ZOFRAN) injection 4 mg Given 03/23/2016 17:48 EST 4 mg 4 mg, intravenous, NOW X1, 1 dose, On Wed03/23/16 at 1715, STAT ondansetron (PF) (ZOFRAN) injection 4 mg Given 03/23/2016 21:19 EST 4 mg 4 mg, intravenous, NOW X1, 1 dose, On Wed03/23/16 at 2130, STAT ondansetron 4 mg ODT tab STARTER Go-Pack Dispense 03/23/2016 21: 36 EST 1 Package PACK 1 Package, oral, NOW X1, 1 dose, On Wed03/23/16 at 2130, STAT Oxycodone w APAP?? 5- 325 mg Tab Go-Pack Dispense 03/23/2016 21: 36 EST 1 Package STARTER PACK 1 Package, oral, NOW X1, 1 dose, On Wed03/23/16 at 2130, STAT documented in this encounter Discontinued Medications Medication Sig Discontinue Reason Start Date End Date buPROPion (WELLBUTRIN) 75 Take 75 mg by mouth 03/23/2016 mg tablet 2 times daily. documented as of this encounter Historical Medications This list may reflect changes made after this encounter. Medication Sig Dispensed Refills Start Date End Date predniSONE (DELTASONE) 5 Take by mouth daily. 0 10/29/2017 mg tablet Dose unknown added in this encounter Active and Recently Administered Medications Times are shown in EST. Scheduled Medication Order 03/21/2016 03/22/2016 03/23/2016 electrolyte-A (PLASMALYTE-A) bolus 1,000 mL (COMPLETED) 172 (New Bag - Provider: Zayra Pierre RN)1840 (Completed - Provider: Zayra Pierre RN)1910 (New Bag - Provider: Zayra Pierre RN)2118 (Completed - Provider: Sebas Toure RN) 1,000 mL, intravenous, NOW X1, 1 dose, 03/23/16 at 1715 HYDROmorphone (DILAUDID) injection 0.5 mg (COMPLETED) 1747 (Given - Provider: Zayra Pierre RN) 0.5 mg, intravenous, NOW X1, 1 dose, 03/23/16 at 1715, STAT HYDROmorphone (DILAUDID) injection 0.5 mg (COMPLETED) 2118 (Given - Provider: Sebas Toure RN) 0.5 mg, intravenous, NOW X1, 1 dose, 03/23/16 at 2115, STAT ondansetron (PF) (ZOFRAN) injection 4 mg (COMPLETED) 1747 (Given - Provider: Zayra Pierre RN) 4 mg, intravenous, NOW X1, 1 dose, 03/23/16 at 1715, STAT ondansetron (PF) (ZOFRAN) injection 4 mg (COMPLETED) 2118 (Given - Provider: Sebas Toure RN) 4 mg, intravenous, NOW X1, 1 dose, 03/23/16 at 2130, STAT ondansetron 4 mg ODT tab STARTER PACK (COMPLETED) 2135 (Go-Pack Dispense - Provider: Sebas Toure RN) 1 Package, oral, NOW X1, 1 dose, 03/23/16 at 2130, STAT Oxycodone w APAP?? 5- 325 mg Tab STARTER PACK (COMPLETED) 2135 (Go-Pack Dispense - Provider: Sebas Toure, RN) 1 Package, oral, NOW X1, 1 dose, 03/23/16 at 2130, STAT documented in this encounter Orders Nursing Count Last Ordered Date First Ordered Date INSERT PERIPHERAL IV 1 03/23/2016 documented in this encounter Care Teams Business Services Representative Relationship Specialty Start Date End Date Elle Cates DO PCP - General 08/31/11 10/04/17 [address] [place] [address] documented as of this encounter
--- OUTSIDE RECORDS SUMMARY | 2021-11-28 01:54 | XMS_ITS | Encounter Summary ---
:1965 Author Organization Health system Address [address] [place] [address] Care Team Providers Name Role Phone Elle Cates DO Primary Care Provider Encounter Details Date Type Department Care Team Description 02/24/2016 Orders Only [facility] Elle Cates, [facility] DO [address] [place] [address] [place] [address] [phone] (Wo rk) Social History Tobacco Use Types [...] on filedocumented in this encounter Care Teams Pickling Grader Relationship Specialty Start Date End Date Elle Cates DO PCP - General 08/31/11 10/04/17 [address] [place] [address] documented as of this encounter
--- OUTSIDE RECORDS SUMMARY | 2021-11-28 01:54 | XMS_ITS | Encounter Summary ---
:1965 Author Organization [facility] Address [address] [place] [address] Care Team Providers Name Role Phone Mere Gonzales MD Primary Care Provider Reason for Referral Vascular Lab (Routine) - New Request Specialty Diagnoses / Procedures Referred By Contact Refer red To Contact Diagnoses Raynaud's disease without gangrene Homozygous Factor V Leiden mutation (HCC-CMS) (HCC) Danitza Garcia NP Procedures VL LOWER ARTERIAL DUPLEX BILATERAL [address] [phone] Referral ID Status Reason Start Date Expiration Date Visits V isits Requested Authorized [id number] New Request 11/22/2017 1 1 ascular Lab (Routine) - New Request Specialty Diagnoses / Procedures Referred By Contact Refer red To Contact Diagnoses Homozygous Factor V Leiden mutation (HCC-CMS) (HCC) Raynaud's disease without gangrene Danitza Garcia NP Procedures VL LOWER VENOUS (DVT) BILATERAL [address] [phone] Referral ID Status Reason Start Date Expiration Date Visits V isits Requested Authorized [id number] New Request 11/22/2017 1 1 Reason for Visit Reason Comments New Patient Visit Consult (3 - 10 Business Days) - Specialty Report Received Specialty Diagnoses / Procedures Referred By Contact Refer red To Contact Hematology Diagnoses FH: factor V Leiden mutation Factor V Leiden (HCC-CMS) ([facility]) Fidelina Arana PA-C [address] [place] [address] Referral ID Status Reason Start Expiration Visits Visits Date Date Requested Authorized [id number] Specialty Specialty 11/10/2017 1 1 Report Services Received Required Encounter Details Date Type Department Care Team Description 11/22/2017 Office Visit [facility] Danitza Garcia Hom ozygous Factor V Leiden mutation ([facility]-CMS) (Primary Dx); 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 Raynaud's disease without gangrene Oncology - [address] [address] [address], [place] [id number] (Wo rk) Social History Tobacco Use Types [...] Sign Reading Time Taken Comments Blood Pressure 127/78 11/22/2017 1503 EDT Pulse 100 11/22/2017 1503 EDT Temperature 36.7 ??C (98 ??F) 11/22/2017 1503 EDT Respiratory Rate 16 11/22/2017 1503 EDT Oxygen Saturation 99% 11/22/2017 1503 EDT Inhaled Oxygen Concentration - - Weight 52.8 kg (116 lb 6.4 oz) 11/22/2017 1503 EDT Height 157.5 cm (5' 2) 11/22/2017 1503 EDT Body Mass Index 21.29 11/22/2017 1503 EDT documented in this encounter Functional Status [...] as of this encounter Discharge Diagnoses Diagnosis D68.51 Activated protein C resistance-D6 8.51[ICD-10-CM] I73.00 Raynaud's syndrome without gangre ne-I73.00[ICD-10-CM] documented in this encounter Patient Instructions Patient InstructionsDanitza Garcia NP - 11/22/2017 14:50 EDT I recommend starting a low dose aspirin once a day (coated) for secondary clot prevention. For your daughters, safe contraception options include: ?? An IUD (the angela might be good if they have never been - smaller - but the Mirena or ParaGuard are fine as well) ?? A progestin only mini pill (but need to be vigilant about timing of dose) ?? A progesterone implant in the upper arm (Nexplanon) ?? Condoms! Avoid combined oral contraceptive pills, the contraceptive ring, the contraceptive Patch, and Depo Provera (injection) as all have been shown to increase thrombosis risk! Signs and symptoms of DVT (clot in a deep vein) include one-sided leg or arm pain, swelling, or increased redness/heat to an area. Please seek medical evaluation should any of these occur. Signs and symptoms of a pulmonary embolism (clot in the lungs) include shortness of breath, dry cough, coughing up blood, and/or chest pain. If you develop any of these symptoms, please seek emergency medical evaluation. I enjoyed meeting you today in the Thrombosis and Hemostasis Clinic at the [facility]. Please feel free to contact me should you have any questions or concerns. I can be reached by phone at: [phone]. TREVON Holliday Our Website [email or web address] You can find information about thrombosis and bleeding problems, links to other educational websitesand to your doctor's research programs on our website. You can also make a donation to our program through the website. For information on national patient initiatives [place] [employer]: [email or web address] National Blood Clot [place]: [email or web address]/ World Thrombosis Day: [email or web address] documented in this encounter Discharge Disposition Disposition Code Departure Means Destination Auto Discharge documented in this encounter Progress Notes Danitza Garcia NP - 11/22/2017 1450 EDT Thrombosis & Hemostasis Program (THP) Consult H&P Date of Service: 11/22/2017 PCP: Mere Gonzales Referring MD: Mere Gonzales Reason for Visit: consult for homozygous Factor V Leiden HPI: Heike Salguero is a 52 yo female who is referred to the Thrombosis clinic for a finding of homozygous Factor V Leiden. She was diagnosed 2 years ago after her mother tested positive after a thrombotic event, but patient is unsure of the circumstances surrounding her mother's clotting hx. She has no personal history of venous thromboembolism but did have a late term miscarriage at 26 weeks gestation dur to placental abruption. Patient recalls her former PCP telling her homozygous FVL was no big deal. Both her daughters weresubsequently tested and both, as expected, carry one copy of FVL. Both are currently on control and Heike is worried they should not be. She is not currently on any type of exogenous hormone but did take OCPs from about [id number]. She is a non-smoker. Her past medical history is significant for ADHD, recurrent renal calculi, PMR, and Raynaud's. She describes terrible circulation with frequent leg pain, cramping, discoloration, and intermittent purple toes. She notices a frequent mottled appearance of her legs and has not worn shorts in year because of it. She has occasional numbness/tingling in her fingers and toes. She has never undergone lowerextremity ultrasounds. She says she does not exercise due to worsening leg pain with activity. She has no history of acute onset shortness of breath, chest pain, palpitations, or syncopal episodes. Heike recently underwent a Left ureteroscopy and laser, left retrograde pyelogram, left stent placement under general anesthesia w ROS: Constitutional: Negative for fever, chills, weight loss, dizziness and malaise/fatigue. HENT: Negative for nosebleeds and congestion. Eyes: Negative for blurred vision. Respiratory: Negative for cough and shortness of breath. Cardiovascular: Negative for chest pain, palpitations. + intermittent sensation of leg swelling. Genitourinary: + urinary frequency, dysuria. Negative for hematuria. Gastrointestinal: Negative for heartburn, nausea, vomiting, constipation and diarrhea. Musculoskeletal: Positive for myalgias and arthralgias. (PMR) + leg cramping, leg pain at rest and with ambulation Neurological: Positive for weakness and numbness and tingling of hands/feet. Endo/Heme/Allergies: Does not bruise/bleed easily. Integument: + mottled appearance of skin on legs and arms. Psychological: Negative for mood disturbance. Past Medical History: Patient has a past medical history of Chronic abdominal pain; Factor V Leiden ([facility]) (10/29/2017); Frequent UTI (10/29/2017); PMR (polymyalgia rheumatica) ([facility]); Post herpetic neuralgia; and Raynaudphenomenon (10/29/2017). Past Surgical History: Patient has a past surgical history that includes Interstim. Family History: Patient's Family History Problem Relation Age of Onset ??? Lung Cancer Father ??? *Other(comment) Father raynauds ??? Ulcerative Colitis Sister ??? Breast Cancer Maternal Grandmother ??? Asthma Maternal Grandmother ??? Dementia Paternal Grandfather ??? High Blood Pressure Paternal Grandfather ??? Clotting Disorder Mother Factor V leiden Social History: Patient reports that she has never smoked. She has never used smokeless tobacco. She reports that she drinks alcohol. She reports that she does not use illicit drugs. 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). 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 Medications: acetaminophen, clobetasol, cyanocobalamin, dextroamphetamine-amphetamine, diclofenac, ergocalciferol(vitamin D2), hydrOXYzine, oxybutynin, polyethylene glycol, predniSONE, and tamsulosin Allergies: Patient has No Known Allergies. Objective: BP 127/78 Pulse 100 Temp 36.7 ??C (98 ??F) (Tympanic) Resp 16 Ht 157.5 cm (62) Wt 52.8 kg(116 lb 6.4 oz) SpO2 99% BMI 21.29 kg/m2 Estimated body mass index is 21.29 kg/(m^2) as calculated from the following: Height as of this encounter: 157.5 cm (62). Weight as of this encounter: 52.8 kg (116 lb 6.4 oz). Physical Exam: General: No acute distress, alert and oriented times three; conversing appropriately Cardiovascular: Regular rate and rhythm, no murmurs Pulmonary: Clear to auscultation, No wheeze, good air movement throughout Gastrointestinal: Soft, non-tender, non-distended, positive active bowel sounds, No rebound/guarding Extremities: No dependent edema on either lower extremity. 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 No palpable cords, nodularities or varicosities. No pain on calf compression. + pedal pulses. Feet cool to touch. Labs: Basic Metabolic Panel Lab Results Component Value Date NA 136 10/29/2017 K 4.4 10/29/2017 CL 98 10/29/2017 CO2 29 10/29/2017 BUN 18 10/29/2017 CREATININE 0.81 10/29/2017 CALCGFR 84 10/29/2017 CALCIUM 9.6 10/29/2017 CALCCA 9.4 10/29/2017 Gastrointestinal Lab Results Component Value Date ALKPHOS 55 10/29/2017 AST 17 10/29/2017 ALT 25 10/29/2017 CONJBILI 0.0 10/06/2004 UNCONJBILI 0.4 10/06/2004 BILIRUBIN Neg 11/08/2017 TBIL <0.5 10/29/2017 TP 6.5 10/29/2017 LABALBU 4.2 10/29/2017 AGRATIO 1.6 10/26/2001 LIPASE 89 08/03/2002 Complete Blood Count Lab Results Component Value Date WBC 11.62 03/23/2016 RBC 5.14 (H) 03/23/2016 HGB 16.1 (H) 03/23/2016 HCT 45.9 (H) 03/23/2016 MCV 89 03/23/2016 MCH 31.3 03/23/2016 MCHC 35.1 03/23/2016 PLT 419 (H) 03/23/2016 MPV 9.0 (L) 03/23/2016 RDWCV 11.9 03/23/2016 Differential (Absolute) Lab Results Component Value Date DIFFTYPE Automated 03/23/2016 NEUTROABS 10.07 (H) 03/23/2016 LYMPHSABS 0.78 (L) 03/23/2016 MONOSABS 0.68 03/23/2016 EOSABS 0.00 (L) 03/23/2016 BASOSABS 0.04 03/23/2016 Anemia No results found for: RETICCTPCT, IRON, UIBC, TIBC, TRANSFERRIN, FERRITIN, LEAD, FOLATE, [id number], HAPTOGLOBIN Coagulation Lab Results Component Value Date DDIMER 285 11/22/2017 PROTIME 11.4 11/22/2017 INR 1.0 11/22/2017 PTT 30 11/22/2017 ANTITHROM 105 11/22/2017 FACTVIIIFA8 112 11/22/2017 PROTCCLOT 116 11/22/2017 PROTSCLOT 82 11/22/2017 CARDIOLIGGC 1.75 11/22/2017 CARDIOLIGMC 12.27 11/22/2017 DRVVT 28.0 11/22/2017 Beta 2 GP 1 Ab IgA < 9.4 11/22/2017 Patient had FVL testing sent to [facility]. We are attempting to obtain results. Imagin11/25/17 B/L LE arterial ultrasounds: 1. The bilateral ankle brachial indices were normal at rest. Mildly ? diminshed bilateral lower extremity digit waveforms. ?? 2. No evidence of hemodynamically significant disease bilaterally. ?? 11/25/17 B/L LE venous ultrasounds: 1. There is no significant reflux in the bilateral common femoral, ? femoral, popliteal, and greater and short saphenous veins. ?? 2. No evidence of deep or superficial vein thrombosis in the right lower ? extremity or the left lower extremity. Assessment: 52 yo female with PMH of Raynaud's, PMR, 26-week loss in setting of placentalabruption, recurrent renal calculi and UTIs, and homozygous Factor V Leiden gene mutation with no documented DVT or PE to-date. She was referred to [facility] for further discussion on the implications of FVL. She has vascular compromise with Raynaud's and livedo reticularis. Her two daughters are obligate carriers of FVL gene mutation, and I have made recommendation on safe contraceptive options for them based on their FVL (reviewed verbally and put in AVS). She will complete a thrombophilia panel to ensure no compounding thrombophilias and I have set her up for bilateral lower extremity venous and arterial studies based on her hx. There are scheduled for 11/25 in our vascular lab. We discussed the implications of homozygous FVL. One copy of the mutation (heterozygous) is associated with about a 5-fold increased risk of venous thrombosis (VTE) and 2 copies (homozygous, which patient has) is associated with a 25-50 fold increased risk of developing VTE. The risk further increasesin the setting of estrogen/progesterone formulations (many contraceptive formulations, HRT) and baseline risk also increases with age. Given her report of homozygous FVL and her recent surgery, I am recommending she complete a thrombophilia panel to rule out any additional risk factors as well as sendher to our vascular lab to assess for evidence venous or arterial occlusion based on leg pain. She will follow-up with one of our hematologists to review results, reinforce education around Factor V Leiden, and make recommendations for future VTE prevention. Plan: 1. Start a once a day low dose aspirin for secondary prevention of blood clots 2. Complete thrombophilia panel to ensure no additional risk factors 3. Lower extremity venous and arterial studies to assess for possible PAD and/or venous occlusion. NEGATIVE 4. Reviewed importance of staying active and hydrated. 5. Reviewed s/sx DVT and PE 6. Follow-up with a merchandising coordinator in one month to review thrombophilia results, including review FVL and its implications, and make recommendation for future VTE prevention Contraceptive recommendations provided for her daughters: Safe methods: ?? IUD (the angela might be good if they have never been - smaller - but the Mirena or ParaGuard are fine as well) ?? Progestin only mini pill (but need to be vigilant about timing of dose) ?? Progesterone implant in the upper arm (Nexplanon) ?? Condoms Unsafe methods (increase risk of DVT or PE): ?? Combined oral contraceptive pills ?? Contraceptive ring (Nuvaring) ?? Contraceptive patch (Ortho-Evra) ?? Injectable progesterone (Depo Provera) I appreciate the opportunity to participate in this patient's care. Please let me know if you have any questions or concerns. I can be reached at x [phone]. Thank you. Danitza Garcia NP *I spent a total of 50 minutes in face to face time with this patient today and >30 minutes was spent in direct education and counseling. cc: Mere Gonzales documented in this encounter Plan of Treatment Not on filedocumented as of this encounter Procedures Procedure Name Priority Date/Time Associated Comments Diagnosis OUTPATIENT ADD-ON Routine 11/25/2017 12:42 Homozygous Factor V Results for this EDT Leiden mutation procedure ar e in ([facility]) the results section. OUTPATIENT ADD-ON Routine 11/25/2017 12:11 Homozygous Factor V Results for this EDT Leiden mutation procedure ar e in ([facility]) the results Raynaud's disease section. without gangrene VL LOWER VENOUS Routine 11/25/2017 12:10 Homozygous Factor V R esults for this (DVT) BILATERAL EDT Leiden mutation procedure are in ([facility]) the results Raynaud's disease section. without gangrene VL LOWER ARTERIAL Routine 11/25/2017 12:03 Raynaud's disease R esults for this DUPLEX BILATERAL EDT without gangren e procedure are in Homozygous Factor V the resu lts Leiden mutation section. ([facility]) documented in this encounter Results OUTPATIENT ADD-ON (11/25/2017 12:42 EDT) Pathologist Sig nature Tests to be added D DIMER [facility] Diagnosis Code SEE EPIC [facility] Number for problems 78,208 [facility] Accession number [id number] DDT [facility] Acknowledge ABP Done [facility] Specimen Blood Performing Organization Address City/State/ZIP Code Phon e Number [facility] [address] [place] [address] SERVICES OUTPATIENT ADD-ON (11/25/2017 12:11 EDT) Tests to be added CBC? [facility] Diagnosis Code SEE EPIC ADVISED [facility] DANITZA GARCIA [facility] UNABLE TO ADD CBC SERVICES NO SUIT SAMPLE Number for problems 7Comment: [id number] [facility] Accession number NONE ADVISED DANITZA [facility] RADHA VOLUNTEER SERVICES MANAGER LABORATORY SERVICES Acknowledge ABP Done [facility] Specimen Blood Performing Organization Address City/State/ZIP Code Phon e Number [facility] [address] [place] [address] SERVICES VL LOWER VENOUS (DVT) BILATERAL (11/25/2017 12:10 EDT) Anatomical Region Laterality Modality Other Specimen Narrative [facility] - 11/26/2017 10:12 EDT Vascular Diagnostic Laboratory [facility], [facility], [address] [facility] [place] [address] Technologist: Lamont Torres Fellow: IMPRESSIONS 1. There is no significant reflux in the bilateral common femoral, ?? femoral, popliteal, and greater and short saphenous veins. 2. No evidence of deep or superficial ve in thrombosis in the right lower ?? extremity or the left lower extremit y. Preliminary results available in PRISM. PROCEDURE: Bilateral lower extremity venous ultraso und; common femoral, proximal profunda femoral, femoral, popliteal, po sterior tibial, peroneal, and greater saphenous veins are routinely ex amined. ? 2D ultrasound, compression, color flow Doppler, and spe ctral Doppler. INDICATION: BLE pain and swelling. HISTORY: Factor V Leiden. RISK FACTORS: Family history of deep vein thrombosis. VENOUS FLOW AND IMAGING: + + -+------+ Vein ? Sonographic findings Diam ?? + + -+------+ Right s-f junction With no reflux. ? 0.35cm + + -+------+ Right GSV mid thigh With no reflux. ? 0.34cm + + -+------+ Right GSV knee ? With no reflux. ? 0.28cm + + -+------+ Right SSV ? With no reflux . ? 0.31cm + + -+------+ Left s-f junction ?? With no reflux. ? 0.58cm + + -+------+ Left GSV mid thigh With no reflux. ? 0.37cm + + -+------+ Left GSV knee ? With no reflux. ? 0.38cm + + -+------+ Left SSV ? With no reflux . ? 0.09cm + + -+------+ * GREYSCALE FINDINGS: Normal right lower extremity venous ultr asound: all segments visualized were compressible with spontaneous and p hasic flow. Normal left lower extremity venous ultrasound: all segment s visualized were compressible with spontaneous and phasic flow. Electronically signed by: Dino Blanco 11/26/2017 10:12 Procedure Note Dino Blanco MD - 11/26/2017 Vascular Diagnostic Laboratory [facility], [facility] [address] [place] [address] Technologist: Lamont Torres Fellow: IMPRESSIONS 1. There is no significant reflux in the bilateral common femoral, femoral, popliteal, and greater and brian rt saphenous veins. 2. No evidence of deep or superficial ve in thrombosis in the right lower extremity or the left lower extremity. Preliminary results available in PRISM. PROCEDURE: Bilateral lower extremity venous ultraso und; common femoral, proximal profunda femoral, femoral, popliteal, po sterior tibial, peroneal, and greater saphenous veins are routinely ex amined. 2D ultrasound, compression, color flow Doppler, and spe ctral Doppler. INDICATION: BLE pain and swelling. HISTORY: Factor V Leiden. RISK FACTORS: Family history of deep vein thrombosis. VENOUS FLOW AND IMAGING: + + -+------+ Vein Sonographic findings Diam + + -+------+ Right s-f junction With no reflux. 0. 35cm + + -+------+ Right GSV mid thigh With no reflux. 0. 34cm + + -+------+ Right GSV knee With no reflux. 0.28cm + + -+------+ Right SSV With no reflux. 0.31cm + + -+------+ Left s-f junction With no reflux. 0.5 8cm + + -+------+ Left GSV mid thigh With no reflux. 0. 37cm + + -+------+ Left GSV knee With no reflux. 0.38cm + + -+------+ Left SSV With no reflux. 0.09cm + + -+------+ * GREYSCALE FINDINGS: Normal right lower extremity venous ultr asound: all segments visualized were compressible with spontaneous and p hasic flow. Normal left lower extremity venous ultrasound: all segment s visualized were compressible with spontaneous and phasic flow. Electronically signed by: Dino Blanco 11/26/2017 10:12 Performing Organization Address City/State/ZIP Code Phon e Number [facility] VL LOWER ARTERIAL DUPLEX BILATERAL (11/25/2017 12:03 EDT) Anatomical Region Laterality Modality Other Specimen Narrative [facility] UARORA MARTINS S - 11/26/2017 10:13 EDT Vascular Diagnostic Laboratory [facility], [address] [facility] [place] [address] Technologist: Lamont Torres Fellow: IMPRESSIONS 1. The bilateral ankle brachial indices were normal at rest. Mildly ?? diminshed bilateral lower extremity digit waveforms. 2. No evidence of hemodynamically signif icant disease bilaterally. PROCEDURE: Single level physiologic arterial evalua tion. ? Continuous wave Doppler, segmental blood pressures, phot oplethysmography, pulse volume recording, and ankle-brachial index. INDICATION: BLE rest pain. Cold, discolored, painful LE digits. HISTORY: Factor V Leiden. Raynaud's. Right brachial systolic: 112mm Hg: Left brachial systolic: 124mm Hg 124 SEGMENTAL PRESSURES AND PVR: + +--------+ +-- + Location ? Pressure Brachial index PVR waveform ? + +--------+ +-- + Right DP ? 109mm Hg 0.88 ? + +--------+ +-- + Right PT ? 140mm Hg 1.13 ? + +--------+ +-- + Right Hallux 88mm Hg 0.71 ? Mildly diminished + +--------+ +-- + Left DP ? 91mm Hg 0.73 ? + +--------+ +-- + Left PT ? 121mm Hg 0.98 ? + +--------+ +-- + Left Hallux 66mm Hg 0.53 ? Mildly diminished + +--------+ +-- + * DOPPLER FINDINGS: + +-------+ + Location ? V sys ?? Flow analys is + +-------+ + Right ENGINEERING PRODUCTION WORKER ? 105cm/s ? + +-------+ + Right SFA - mid 110cm/s ? + +-------+ + Right POP ? 75cm/s Triphasic ? + +-------+ + Right HOSTESS HOST ? Triphasic ? + +-------+ + Right DPA ? Triphasic ? + +-------+ + Left ENGINEERING PRODUCTION WORKER ? 129cm/s ? + +-------+ + Left SFA - mid 108cm/s ? + +-------+ + Left POP ? 64cm/s Triphasic ? + +-------+ + Left HOSTESS HOST ? 73cm/s Triphasic ? + +-------+ + Left DPA ? 34cm/s Biphasic ? + +-------+ + * Electronically signed by: Dino Blanco. 11/26/2017 10:13 Procedure Note Dino Blanco MD - 11/26/2017 Vascular Diagnostic Laboratory [facility] [address] [place] [address] Technologist: Lamont Torres Fellow: IMPRESSIONS 1. The bilateral ankle brachial indices were normal at rest. Mildly diminshed bilateral lower extremity dig it waveforms. 2. No evidence of hemodynamically signif icant disease bilaterally. PROCEDURE: Single level physiologic arterial evalua tion. Continuous wave Doppler, segmental blood pressures, phot oplethysmography, pulse volume recording, and ankle-brachial index. INDICATION: BLE rest pain. Cold, discolored, painful LE digits. HISTORY: Factor V Leiden. Raynaud's. Right brachial systolic: 112mm Hg: Left brachial systolic: 124mm Hg 124 SEGMENTAL PRESSURES AND PVR: + +--------+ +-- + Location Pressure Brachial index PVR w aveform + +--------+ +-- + Right DP 109mm Hg 0.88 + +--------+ +-- + Right PT 140mm Hg 1.13 + +--------+ +-- + Right Hallux 88mm Hg 0.71 Mildly dimi nished + +--------+ +-- + Left DP 91mm Hg 0.73 + +--------+ +-- + Left PT 121mm Hg 0.98 + +--------+ +-- + Left Hallux 66mm Hg 0.53 Mildly dimi nished + +--------+ +-- + * DOPPLER FINDINGS: + +-------+ + Location V sys Flow analysis + +-------+ + Right ENGINEERING PRODUCTION WORKER 105cm/s + +-------+ + Right SFA - mid 110cm/s + +-------+ + Right POP 75cm/s Triphasic + +-------+ + Right HOSTESS HOST Triphasic + +-------+ + Right DPA Triphasic + +-------+ + Left ENGINEERING PRODUCTION WORKER 129cm/s + +-------+ + Left SFA - mid 108cm/s + +-------+ + Left POP 64cm/s Triphasic + +-------+ + Left HOSTESS HOST 73cm/s Triphasic + +-------+ + Left DPA 34cm/s Biphasic + +-------+ + * Electronically signed by: Dino Blanco 11/26/2017 10:13 Performing Organization Address City/[facility]/ZIP Code Phon e Number [facility] FACTOR 8 ASSAY (11/22/2017 16:25 EDT) Pathologist Sig nature Factor 8 Assay 112 53 - 143 % [facility] LABORAT ORY SERVICES Specimen Blood specimen (specimen) - Blood Performing Organization Address City/[facility]/ZIP Code Phon e Number [facility] [address] [place] [address] SERVICES PTT (11/22/2017 16:24 EDT) Pathologist Sig nature PTT 30 26 - 37 secs [facility] LABORATOR Y SERVICES Specimen Blood specimen (specimen) - Blood Performing Organization Address City/[facility]/ZIP Code Phon e Number [facility] [address] [place] [address] SERVICES PROTIME (11/22/2017 16:24 EDT) Pro Time 11.4 10.3 - 13.4 [facility] secs LABORATORY SERVICES I.N.R. 1.0 0.9 - 1.1 [facility] Comment: Ratio LABORATORY SERVICES Moderate Intensity Coumadin INR = 2.0-3.0 Adjustments in anticoagulant therapy dose should be based upon the INR and NOT the Pro Time. Specimen Blood specimen (specimen) - Blood Performing Organization Address City/[facility]/ZIP Code Phon e Number [facility] [address] [place] [address] SERVICES ANTITHROMBIN, FUNCTIONAL (11/22/2017 16:24 EDT) Antithrombin, 105 85 - 125 % [facility] Funct. Comment: LABORATORY SERVICES CAUTION: Antithrombin III [...] specimen (specimen) - Blood Performing Organization Address [facility] Phon e Number [facility] [address] [place] [address] SERVICES PROTEIN S ACTIVITY (11/22/2017 16:24 EDT) Protein S 82 64 - 147 % [facility] Activity Comment: LABORATORY SERVICES a. ??Acquired Protein [...] specimen (specimen) - Blood Performing Organization Address [facility] Phon e Number [facility] [address] [place] [address] SERVICES PROTEIN C ACTIVITY (11/22/2017 16:24 EDT) Protein C Clot 116 71 - 199 % [facility] Comment: LABORATORY SERVICES a. ??Acquired Protein C [...] specimen (specimen) - Blood Performing Organization Address [facility] Phon e Number [facility] [address] [place] [address] SERVICES BETA 2 GLYCOPROTEIN IGA (11/22/2017 16:24 EDT) Beta 2 GP1 Ab IgA <9.4 <15.0 [facility] Comment: (Negative) LABORATORY Performed or Referred by: [facility], [address] U/[place] [address] Specimen Blood specimen (specimen) - Blood Performing Organization Address [facility] Phon e Number [facility] [address] [place] [address] SERVICES CARDIOLIPIN ANTIBODY (11/22/2017 16:24 EDT) Cardiolipin IgG 1.75 GPL [facility] Comment: LABORATORY SERVICES IgG Negative <15 GPL Indeterminate 15 - <20 GPL Low to Medium Positive 20 - 80 GPL Strongly Positive >80 GPL Results were obtained with the [employer] QUANT[employer] Lite ERNESTO I gG and IgM III HEMALATHA kits. Cardiolipin IgG and IgM values obtained with different spa director's assay methods may not be used interchangeably. The magnitude of the reported IgG and IgM levels canno t be correlated to an endpoint titer. Cardiolipin IgM 12.27 MPL [facility] Comment: LABORATORY SERVICES IgM Negative <12.5 MPL Indeterminate 12.5 - <20 MPL Low to Medium Positive 20 - 80 MPL Strongly Positive >80 MPL Results were obtained with the [employer] QUANTA Lite ERNESTO I gG and IgM III HEMALATHA kits. Cardiolipin IgG and IgM values obtained with different spa director's assay methods may not be used interchangeably. The magnitude of the reported IgG and IgM levels canno t be correlated to an endpoint titer. Specimen Blood specimen (specimen) - Blood Performing Organization Address City/[facility]/ZIP Code Phon e Number [facility] [address] [place] [address] SERVICES LUPUS ANTICOAGULANT CASCADE (11/22/2017 16:24 EDT) [facility] [place] Negative for detection of lupus anticoagulant ([place]). [facility] Summary Comment: CENTER LABORATORY Where clinical [...] 1515 on 11.25.17 Dilute Viper 28.0 secs [facility] [place] Comment: [facility] Reference Range = 27.2-36.9 secs SERVICE S Results must be interpreted with caution if the patien t is on oral anticoagulant, direct thrombin inhibitors or heparin. Silica Clotting 37.8 sec [facility] Time Comment: [facility] Reference Range = 30.2-48.4 secs SERVICES Results must be interpreted with caution if the patien t is on oral anticoagulant, direct thrombin inhibitors or heparin. Specimen Blood specimen (specimen) - Blood Performing Organization Address City/State/ZIP Code Phon e Number [facility] [address] [place] [address] SERVICES documented in this encounter Visit Diagnoses Diagnosis Homozygous Factor V Leiden mutation ([facility]) - Primary Primary hypercoagulable state Raynaud's disease without gangrene documented in this encounter Discontinued Medications Medication Sig Discontinue Reason Start Date End Date predniSONE (DELTASONE) 5 Take 1 Tab by mouth Therapy completed 08/201711/22/2017 mg tablet daily. Total dose 9 mg documented as of this encounter Care Teams Warehouse Record Clerk Relationship Specialty Start Date End Date Mere Gonzales MD PCP - General 10/05/17 07/30/20 [address] [place] [phone] documented as of this encounter
--- OUTSIDE RECORDS SUMMARY | 2021-11-28 01:54 | XMS_ITS | Encounter Summary ---
:1965 Author Organization [facility] Address [address] [place] [address] Care Team Providers Name Role Phone Mere Gonzales MD Primary Care Provider Reason for Visit Reason Onset Date Comments Medications Refill 10/11/2017 Encounter Details Date Type Department Care Team Description 10/11/2017 Refill [facility] Adult Mere Gonzales, Medications Refill Primary Care - Tam HERNÁNDEZ [address] [place] [address] [place], [place] [phone] (Wo rk) Social History Tobacco Use [...] 10:24 EST documented as of this encounter Ordered Prescriptions Prescription Sig Dispensed Refills Start Date End Date dextroamphetamine-amphetam Take 1 Tab by mouth 30 Tab 0 10/11/2017 10/29/2017 ine (ADDERALL) 15 mg daily. Daily Max: tablet 15 mg documented in this encounter Miscellaneous Notes Telephone Encounter - Marissa Howard RN - 10/11/2017 1011 EDT Pt should have rfs of oxybutinin. Looks as thought both adderall and prednisone not been rxed here before. Requested Prescriptions Pending Prescriptions Disp Refills ??? dextroamphetamine-amphetamine (ADDERALL) 15 mg tablet Sig: Take 1 Tab by mouth daily. Daily Max: 15 mg ??? predniSONE (DELTASONE) 5 mg tablet Sig: Take by mouth daily. Dose unknown Pharmacy: [facility] Last Refill Date: Unknown-not rxed here before Last Visit Date: None--will be new pt Next Non-Acute Visit Date Scheduled with Care Team: Yes. 10/29/2017 Call to pt to clarify rxes. Pt wondering if we have her records from Dr Mcmillan office; part [facility] she takes adderall 15 mg tab-take 1 tab daily Pt was supposed to see Dr Gonzales last Wednesday but she was out. Was micha for 10/29. Call to pharmacy. adderall was last filled 15 mg 09/09 for 30 day supply Prednisone does have a rf left. Pt aware. To Dr Janet Howard 10/11/2017 10:13 elephone Encounter - Josee Lorenzo - 10/11/2017 0945 EDT Patient was scheduled on 10.04.17 but was bumped. Now patient is rescheduled to 10.29.[address] Gonzales. She has now run out of her 1. Adderall 2.Prednisone 3. Oxybutynin [facility] I let patient know that she may have to ask her old pcp. She's asking for just enough until the appointment. documented in this encounter Plan of Treatment Not on filedocumented as of this encounter Visit Diagnoses Not on filedocumented in this encounter Discontinued Medications Medication Sig Discontinue Reason Start Date End Date dextroamphetamine-ampheta Take 15 mg by mouth Reorder 10/11/2017 mine (ADDERALL) 15 mg daily. tablet documented as of this encounter Care Teams Soft Sugar Operator Head Relationship Specialty Start Date End Date Mere Gonzales MD PCP - General 10/05/17 07/30/20 [address] [place] [phone] documented as of this encounter
--- OUTSIDE RECORDS SUMMARY | 2021-11-28 01:54 | XMS_ITS | Encounter Summary ---
:1965 Author Organization [facility] Address [address] [place] [address] Care Team Providers Name Role Phone Mere Gonzales MD Primary Care Provider Encounter Details Date Type Department Care Team Description 12/06/2017 Hospital Encounter [facility] Joselito Gary, Endoscopy Outpatient MD [address] [facility] [address] [place] [address] [place] [phone] Social History Tobacco Use Types Packs/Day Years [...] Sign Reading Time Taken Comments Blood Pressure 103/70 12/06/2017 1610 EDT Pulse - - Temperature 36.3 ??C (97.3 ??F) 12/06/2017 1410 EDT Respiratory Rate 15 12/06/2017 1610 EDT Oxygen Saturation 98% 12/06/2017 1610 EDT Inhaled Oxygen Concentration - - Weight - - Height - - Body Mass Index - - documented in this encounter Functional Status Functional [...] as of this encounter Discharge Diagnoses Diagnosis Z12.11 Encounter for screening for malig nant neoplasm of colon-Z12.11[ICD-10-CM] Z79.52 salvage determiner (current) use of system ic steroids-Z79.52[ICD-10-CM] Z79.899 Other detention (current) drug t herapy-Z79.899[ICD-10-CM] 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 cephALEXin (KEFLEX) 250 Take [...] procedure 236-22.74-6.74 -5.86 scheduled. Questions: gram suspension [facility] Gastroenterology: [phone] or GI Doctor's Office. predniSONE (DELTASONE) 1 Take 4 Tabs by mouth 120 Tab 0 0 10/29/2017 02/04/2018 mg tablet daily. Total dose 9 mg(+5mg tab) UNABLE TO FIND Med Name: Blake Benavidez 0 01/28/2018 81 MG documented as of this encounter Discharge Disposition Disposition Code Departure Means Destination Home or Self [facility] documented in this encounter H&P Notes Shama Gary MD - 12/06/2017 1442 EDT Endoscopy Sedation for Procedure History & Physical Date: 12/06/2017 Time: 14:42 Location: [address] Planned Procedure: Colonoscopy Chief Complaint/Indications for Procedure: First screening History Previous Complication with Sedation and/or Anesthesia? No Allergies: No Known Allergies Current Medications: Current Outpatient Prescriptions: amLODIPine (NORVASC) 5 mg tablet clobetasol (TEMOVATE) 0.05 % ointment cyanocobalamin (VITAMIN B-12) 500 mcg tablet dextroamphetamine-amphetamine (ADDERALL) 15 mg tablet [START ON 01/21/2018] dextroamphetamine-amphetamine (ADDERALL) 15 mg tablet [START ON 12/24/2017] dextroamphetamine-amphetamine (ADDERALL) 15 mg tablet ergocalciferol, vitamin D2, (VITAMIN D ORAL) hydrOXYzine (ATARAX) 25 mg tablet LAXATIVE, BISACODYL, ORAL magnesium oxide (MAG-OX) 400 mg (241.3 mg magnesium) tablet oxybutynin (DITROPAN-XL) 5 mg CR tablet polyethylene glycol (GOLYTELY;NULYTELY) 236-22.74-6.74 -5.86 gram suspension predniSONE (DELTASONE) 1 mg tablet UNABLE TO FIND Current Facility-Administered Medications: atropine 0.1 mg/mL syringe 0.25-1 mg intravenous PRN fentaNYL citrate (PF) 50 mcg/mL injection 25-250 mcg intravenous Once PRN flumazenil (ROMAZICON) injection 0.2 mg intravenous PRN lactated ringers (LR) infusion intravenous CONTINUOUS meperidine (PF) (DEMEROL) 100 mg/mL injection 25-200 mg intravenous Once PRN midazolam (MDV) (VERSED) injection 1-10 mg intravenous Once PRN naloxone (NARCAN) injection 0.4 mg intravenous PRN ondansetron (PF) (ZOFRAN) injection 2-4 mg intravenous PRN sodium chloride 0.9 % flush 3 mL intravenous PRN Past Medical History: Past Medical History: Diagnosis Date ??? Chronic abdominal pain ??? Factor V Leiden ([facility]) 10/29/2017 ??? Frequent UTI 10/29/2017 ??? PMR (polymyalgia rheumatica) ([facility]) ??? Post herpetic neuralgia ??? Raynaud phenomenon 10/29/2017 Social History: Past Surgical History: Procedure Laterality Date ??? INTERSTIM Social History Substance Use Topics ??? Smoking status: Never Smoker ??? Smokeless tobacco: Never Used ??? Alcohol use Yes Family History: Family History Problem Relation Age of Onset ??? Lung Cancer Father ??? *Other(comment) Father raynauds ??? Ulcerative Colitis Sister ??? Breast Cancer Maternal Grandmother ??? Asthma Maternal Grandmother ??? Dementia Paternal Grandfather ??? High Blood Pressure Paternal Grandfather ??? Clotting Disorder Mother Factor V leiden Review of Systems as pertinent: Physical Exam Vital Signs: BP 119/65 Temp 36.3 ??C (97.3 ??F) (Tympanic) Resp 14 LMP 11/08/2017 (Approximate) SpO2 100% Heart Examination: Cardiac Regularity: Regular Respiratory Examination: Respiratory Pattern: Regular Breath Sounds Right: Clear Breath Sounds Left: Clear Abdominal Examination: Soft, non-tender, bowel sounds normal, no masses, no organomegaly Additional physical exam related to the proposed procedure, patient activity, disease state and treatment as pertinent: Assessment Previous complications with sedation or anesthesia?: No Airway Concerns: None Anesthesia Classification: ASA 1 Plan: Proceed with sedation for procedure Fasting Time: Time of last liquid intake: 1100 Date of Last Liquid Intake: 12/06/17 Time of last solid intake: 0800 Date of last solid intake: 12/05/17 Patient Appropriate Candidate for Planned Sedation?: Yes Shama Gary MD 12/06/2017 14:42 documented in this encounter Plan of Treatment Not on filedocumented as of this encounter Procedures Procedure Name Priority Date/Time Associated Comments Diagnosis COLONOSCOPY PROCEDURE Routine 12/06/2017 15:10 Re sults for this EDT procedure are i n the results section. documented in this encounter Results COLONOSCOPY PROCEDURE (12/06/2017 15:10 EDT) Specimen Narrative [facility] ENDOSCOPY - 8 15:10 EDT Procedure Performed Colonoscopy Indications for Exam Screening Colonoscopy. Procedure Technique A physical exam was performed. Informed consent was obtained from the patient after explaining all the risks (perforation, bleeding, mi ssed findings, injury to nearby organs, infection and adverse effects to the medicine), benefi ts and alternatives to the procedure which the patient appeared to understand and so stated. ?? The patient was connected to the monitoring devices and placed in the left lateral position. Con tinuous oxygen was provided with a nasal cannula and IV medicine administered thru an indwellin g cannula. After adequate sedation was achieved, a digital exam was performed and the colon oscope introduced into the rectum and advanced under direct visualization to the cecum. The cecum was identified by visual landm arks. The endoscope was subsequently removed slowly while carefully examining the color, jeronimo ture, anatomy, and integrity of the mucosa on withdrawal. Retroflexion was performed i n the rectum: Yes. The patient was subsequently transferred to the recovery area in sati sfactory condition. Rectal Exam:Normal Estimated Blood Loss: None Complications None Medications Versed 4 mg Fentanyl 200 mcg I was in continuous face to face attenda nce during the administration of moderate sedation services that were monitored by an indep endent trained observer who had no other duties during the procedure. ??Total sedation time was 20 minutes. Ayr Bowel Prep Right Colon: 2 ? Transverse Colon: 3 ? Left Colon: 3 ?Total: 8 Findings Normal Colonoscopy to the cecum. Normal retroflexion. NO polyps noted during this exam. Diagnosis Normal Colonoscopy to the cecum. Normal retroflexion. NO polyps noted during this exam. Recommendations Repeat colonoscopy in 10 years. This electronic signature authenticates all electronic and/or handwritten documentation, including orders, generated by the fabien dickey during the episode of care contained in this record. 12/06/2017 03:10:02 PM By Shama camargo Performing Organization Address City/State/ZIP Code Phon e Number [facility] ENDOSCOPY documented in this encounter Visit Diagnoses Not on filedocumented in this encounter Administered Medications Inactive Administered Medications - up to 3 most recent administrations Medication Order MAR Action Action Date Dose Rate Site lactated ringers (LR) infusion New Bag 12/06/2017 14:28 EDT 30 mL/hr 30 mL/hr at 30 mL/hr, 30 mL/hr, intravenous, CONTINUOUS, Starting on Wed12/06/17 at 1430, Until Wed12/08/17 at 0538, Routine, Preprocedure documented in this encounter Orders Medications Ordered That Might Not Have Count Last Ord ered Date First Ordered Date Been Administered atropine 0.1 mg/mL syringe 0.25-1 mg 1 12/06/2017 fentaNYL citrate (PF) 50 mcg/mL injection 1 2017 25-250 mcg flumazenil (ROMAZICON) injection 0.2 mg 1 12/07/19 18 lactated ringers (LR) infusion 1 12/06/2017 meperidine (PF) (DEMEROL) 100 mg/mL 1 12/06/2017 injection 25-200 mg midazolam (MDV) (VERSED) injection 1-10 mg 1 12/06 naloxone (NARCAN) injection 0.4 mg 1 12/06/2017 ondansetron (PF) (ZOFRAN) injection 2-4 mg 1 12/06 sodium chloride 0.9 % flush 3 mL 1 12/06/2017 Discharge Count Last Ordered Date First Ordered Date DISCHARGE PATIENT 1 12/06/2017 documented in this encounter Care Teams [employer] Packages Leak Tester Relationship Specialty Start Date End Date Mere Gonzales MD PCP - General 10/05/17 07/30/20 [address] [place] [phone] documented as of this encounter
--- OUTSIDE RECORDS SUMMARY | 2021-11-28 01:54 | XMS_ITS | Encounter Summary ---
:[address] [facility] Address [address] [place] [address] Care Team Providers Name Role Phone Elle Cates DO Primary Care Provider Reason for Visit Reason Onset Date Comments Labs Only 09/20/2017 Encounter Details Date Type Department Care Team Description 09/20/2017 Telephone [facility] Pelvic Juliet Bruno, RN Labs Only Medicine and Reconstructive Surgery - Medical Office [facility] [address] [place], [place] [phone] Social History Tobacco Use Types Packs/Day Years [...] Telephone Encounter - Analilia Hardy RN - 09/21/2017 1602 EDT No other recommendations per Abelardo Ryan MONUMENT CARVER. elephone Encounter - Analilia Hardy RN - 09/21/2017 1438 EDT Pt calling to see if she had a positive urine culture from last week. Advised that it came back negative. Pt reporting ongoing abdominal pain and bloating, taking ibuprofen q 4 hours. Advised not to take more than daily recommendations. Pt remembers her PCP telling her that there were certain OTC painrelievers that she shouldn't be taking. Pt with questions about what OTC pain reliever to use with dx of Factor V Leiden, advised that pt discuss this with her PCP. Any other recommendations. elephone Encounter - Analilia Hardy RN - 09/20/2017 1310 EDT Urine culture and cytology both normal, reviewed by Abelardo Ryan NP. Pt to proceed with CT Urogram and Cystoscopy. elephone Encounter - Eileen Bruno RN - 09/20/2017 1016 EDT Pt calling for urine test results and asking if she should have any blood work done. documented in this encounter Plan of Treatment Not on filedocumented as of this encounter Visit Diagnoses Not on filedocumented in this encounter Care Teams Sap Bw Architect Relationship Specialty Start Date End Date Elle Cates DO PCP - General 08/31/11 10/04/17 [address] [place] [address] documented as of this encounter
--- OUTSIDE RECORDS SUMMARY | 2021-11-28 01:54 | XMS_ITS | Encounter Summary ---
:1965 Author Organization [facility] Address [address] [place] [address] Care Team Providers Name Role Phone Mere Gonzales MD Primary Care Provider Reason for Visit Reason Onset Date Comments Other 12/28/2017 patient still in altaf n Results 01/03/2018 Encounter Details Date Type Department Care Team Description 12/28/2017 Telephone [facility] Alex Ren (patient still Urology - Tien Kessler MD in pain); Results Office [address], [address], [address] [place] [address] [place], [place] [phone] (Wo rk) Social History Tobacco Use [...] encounter Miscellaneous Notes Telephone Encounter - Eileen Bruno RN - 01/05/2018 1401 EST Pt returning Johanna's call. She is describing difficulty urinating where she will void small amounts stand and void more. Describing it as difficulty starting and maintaining a stream. She states at othertime she voids without difficulty. No pain just some pressure.She had kidney stone treatment recently(laser lithotripsy) with the removal of her stent on 12/15. She states the difficulty with urinationis all new since she has been worked up for the hematuria She is on oxybutynin which she has been on for some time now for her urge incontinence. She also hasan interstim in place. It has been off as it did not help. She is due to have that removed in January. There has been speculation in the past by her PCP that she might have IC but does not seem to have anyone following her for that. Pt states she will no longer have insurance after January so is hoping to get some resolution of these symptoms before then Per Discussion with Dr Hogan, pt advised to come in for a PVR check and discussed the possibility of pelvic floor dysfunction. Dr Hogan agrees that maybe PFPT may be beneficial. N Artem had an opening 01/06 at 8 which pt was agreeable to try. elephone Encounter - Analilia Hardy RN - 01/05/[address] Hogan pt should come into office to have a PVR checked. elephone Encounter - Analilia Hardy RN - 01/05/2018 0968 EST would check and make sure she is emptying. If she is emptying, I would try Hyophen q8h PRN or pyridium PRN elephone Encounter - Alex Ren MD - 01/04/2018 1710 EST I defer ti Dr Hogan . Nothing else to add elephone Encounter - Barbie Molina - 01/03/2018 1242 EST Patient calling for the results of her urine culture. elephone Encounter - Bryanna Lucas RN - 12/31/2017 1352 EST Urine culture negative. ua negative. Will consult Dr Ren and Edison on steps from here. elephone Encounter - Bryanna Lucas RN - 12/29/2017 1636 EST The patient notes that she is having discomfort in her genitals. She is having pain with trying to void. He is having hesitancy when attempting to void. She is feeling like she has to urinate all the time. She gets good volume up in the morning, but otherwise smaller volumes more frequently. She is having ongoing symptoms and would like guidance. She will submit a urine sample today to rule out infection at [facility] elephone Encounter - Shirlene Miguel - 12/28/2017 1314 EST Patient called and LM stating that she is still experiencing some pain/discomfort after having her stent removed. She said that she was told it would go away but it has actually been seeming to get worse. documented in this encounter Plan of Treatment Not on filedocumented as of this encounter Results UA, CHEMICAL AND SEDIMENT ANALYSIS (DIPSTICK AND MICROSCOPIC) (12/29/2017 17:48 EST) Color, UA Yellow [facility] Clarity, UA Clear [facility] Glucose, UA Neg Neg [facility] Bilirubin, Neg Neg [facility] Ketones, UA Neg Neg [facility] Refractometer 1.007 1.001 - 1.035 [facility] SG,Urine [facility] Blood, Neg Neg [facility] pH, UA 7.0 4.6 - 8.0 [facility] Protein, Neg Neg [facility] Urobilinogen, UA Normal Normal [facility] E.U./dl [facility] Nitrite, Neg Neg [facility] Leuk Esterase Neg Neg [facility] UA Method Used [facility] Comment: [facility] Testing performed using SERVICES [employer]use [id number]. Urine RBC Count 0 to 2 0 to 2 /HPF [facility] Automated [facility] Urine WBC Count 0 to 3 0 to 3 /HPF [facility] Automated [facility] Urine Squamous None seen None seen [facility] Epithelial Cell /LPF [facility] Count, Automated SERVICES Urine Hyaline Casts, < or = 10 < or = 10 [facility] Automated /LPF [facility] Urine Bacteria None seen None seen [facility] Count, Automated [facility] UA Comment Sediment results [facility] Comment: [facility] are unreliable on SERVICES urines unrefrig >2hrs or refrig >8hrs. Specimen Urine (substance) - Urine Performing Organization Address City/[facility] Code Phon e Number [facility] [address] [place] [address] SERVICES BACTERIAL CULTURE, URINE (12/29/2017 17:46 EST) Pathologist Sig nature Result No growth [facility] Y [facility] Specimen Urine (substance) - Urine Performing Organization Address City/[facility]/ZIP [facility] Phon e Number [facility] [address] [place] [address] SERVICES documented in this encounter Visit Diagnoses Diagnosis Frequency of urination - Primary Urinary frequency documented in this encounter Care Teams Well Logging Operator Mud Analysis Relationship Specialty Start Date End Date Mere Gonzales MD PCP - General 10/05/17 07/30/[address] [place] [address] [phone] documented as of this encounter
--- OUTSIDE RECORDS SUMMARY | 2021-11-28 01:54 | XMS_ITS | Encounter Summary ---
:1965 Author Organization [facility] Address [address] [place] [address] Care Team Providers Name Role Phone Mere Gonzales MD Primary Care Provider Reason for Visit Reason Onset Date Comments Other 11/09/2017 Encounter Details Date Type Department Care Team Description 11/09/2017 Telephone [facility] Adult Mere Day MD Other Primary Care - [address] [address] [phone] (Wo rk) Social History Tobacco Use Types [...] encounter Miscellaneous Notes Telephone Encounter - Mere Olvera - 11/09/[address] Jay office, pt does NOT need EKG due to age. She apologizes for the mix up Telephone Encounter - Kory Duggan RN - 11/09/2017 1548 EDT Call to Patient Appointment scheduled for tomorrow morning with Fidelina HAND for pre-op visit Telephone Encounter - Mere Gonzales MD - 11/09/2017 1151 EDT Ordinarily I would addend my note but I didn't ask several of the questions that go along with preop(problems with anesthesia, etc.) so in good conscience I don't feel that I can 'clear' her. Also sheneeds an EKG so she'll need to be seen. If there's no openings in [place] or [facility]ina schedule then we'll have to go elsewhere or she can postpone the surgery for a few days. elephone Encounter - Christine Mcguire - 11/09/2017 1030 EDT Patient is having kidney stones removed on 11/11/17 and patient will need a pre op appointment unlessthe Appointment she had on 10/29/17 can be used or addend? Spoke with urology and patient does need an EKG done. If Dr. Gonzales cannot clear patient from the 10/29/17 appointment then patient will need to go to the [facility] for a pre op appointment as we do not have any openings. documented in this encounter Plan of Treatment Not on filedocumented as of this encounter Visit Diagnoses Not on filedocumented in this encounter Care Teams Biology Laboratory Assistant Relationship Specialty Start Date End Date Mere Gonzales MD PCP - General 10/05/17 07/30/20 [address] [place] [phone] documented as of this encounter
--- OUTSIDE RECORDS SUMMARY | 2021-11-28 01:54 | XMS_ITS | Encounter Summary ---
:1965 Author Organization [facility] Address [address] [place] [address] Care Team Providers Name Role Phone Mere Gonzales MD Primary Care Provider Reason for Referral Referral (Routine) - Specialty Report Received Specialty Diagnoses / Referred By Referred To Cont act Procedures Contact Gastroenterology and Diagnoses Colon cancer screening Mere Gonzales Mp5 Gi Hepatology Procedures COLONOSCOPY REQUEST MD Barbara [address] [facility] [address] [place] [address] [place], [place] Phone: [phone] Referral ID Status Reason Start Date Expiration Date Visits V isits Requested Authorized [id number] Specialty 10/29/2017 1 1 Report Received onsult (Routine) - Specialty Report Received Specialty Diagnoses / Procedures Referred By Contact Refer red To Contact Diagnoses PMR (polymyalgia rheumatica) ([facility]) ([facility]) Mere Gonzales MD [address] [place] [address] Referral ID Status Reason Start Expiration Visits Visits Date Date Requested Authorized [id number] Specialty Specialty 10/29/2017 1 1 Report Services Received Required Question Answer Reason for Request: diagnosis of PMR (uncertaint y about this though) on buttermaker continuous churn steroid s, chronic abdominal pain, raynauds Practice Site (External Referral Only): [facility] Reason for Visit Reason Comments New Patient Visit Abdominal Pain and back pain ct scan schedu led Wednesday has been sick since March Encounter Details Date Type Department Care Team Description 10/29/2017 Office Visit [facility] Mere Gonzales ic abdominal pain (Primary Dx); Adult Primary Care - MD Barbara PMR (polymyalgia rheumatica) ([facility]); Tam [address] Frequent UTI; [address] [place], Constipation, unspecified co nstipation type; [place] [address] [place] [phone] Healthcare maintenance; [phone] Colon cancer vt mariam (Work) Social History Tobacco Use Types Packs/Day [...] Reading Time Taken Comments Blood Pressure 110/70 10/29/2017900 EDT Pulse 60 10/29/2017900 EDT reg Temperature 36 ??C (96.8 ??F) 10/29/2017900 EDT Respiratory Rate 14 10/29/2017900 EDT reg Oxygen Saturation - - Inhaled Oxygen Concentration - - Weight 50.3 kg (111 lb) 10/29/2017900 EDT Height 160 cm (5' 3) 10/29/2017900 EDT Body Mass Index 19.66 10/29/2017900 EDT documented in this encounter Patient Instructions Patient InstructionsMere Gonzales MD - 10/29/2017 9:15 EDT 1. Let's start by working on constipation - docusate (stool softener) 1-2 x daily. Then if no improvement, continue that and try miralax also 2. Fax referral to rheumatology at (call on Wed to make appt) 3. Colonoscopy 4. Decrease prednisone to 9mg - one 5mg tab and four 1mg tablets (unless you are on 5mg, then just do the four 1mg tablets) 5. Go to the lab at your convenience. documented in this encounter Ordered Prescriptions Prescription Sig Dispensed Refills Start Date End Date polyethylene glycol Instructions mailed 4000 mL 0 018 01/24/2018 (GOLYTELY;NULYTELY) once procedure [id number] scheduled. Questions: gram suspension [facility] Gastroenterology: [phone] or GI Doctor's Office. dextroamphetamine-amphe Take 1 Tab by mouth 30 Tab 0 08/201711/26/2017 tamine (ADDERALL) 15 mg daily. Daily Max: 15 tablet mg predniSONE (DELTASONE) Take 4 Tabs by mouth 120 Tab 0 08/201702/04/2018 1 mg tablet daily. Total dose 9 mg(+5mg tab) predniSONE (DELTASONE) Take 1 Tab by mouth 30 Tab 0 08/201711/22/2017 5 mg tablet daily. Total dose 9 mg documented in this encounter Discharge Disposition Disposition Code Departure Means Destination Auto Discharge documented in this encounter Progress Notes Mere Gonzales MD - 10/29/2017 0915 EDT Heike Salguero, 52 y.o. female PRIMARY CARE PROVIDER: Mere Gonzales CHIEF COMPLAINT: Chief Complaint Patient presents with ??? New Patient Visit ??? Abdominal Pain and back pain ct scan scheduled Wednesday has been sick since March HISTORY OF PRESENT ILLNESS: Heike Salguero is a 52 y.o. female here for new visit. She has a complicated history. Was diagnosed 2 years ago with PMR and started on prednisone. She had been doing well on that until March of this year when she developed severe abdominal pain. This has been limiting her daily life in many ways. She has trouble bending down and over, it prevents exercise and physical activity. She has been miserable and her mood has worsened because of it. She has been seeing the continence clinic due to ongoing hematuria and has an upcoming cystoscopy and CT scan. She was recently restarted on her oxybutynin. She hs a failed interstim which she wants removed if possible. Other things of note, she has constipation which is significant. Doesn't notice that her abdominal pain (which is diffuse) gets better or worse with eating. She has no blood in the stool. She used to have IBS diarrhea predominant, but now is having constipation for months. She has lost a few lbs but not much. She sometimes gets nausea with occasional vomiting for no reason. She has severe raynauds. Her web content developer told her that the diagnosis of PMR was incorrect because her inflammatory markers were normal while on prednisone 10mg. Heike has had stress the last few years with her relationship with her . Divorce was discussed many times but things have gotten a lot better now and she's happy with it. She admits to depression and anxiety but isn't intersted in pursuing therapy at this time. She wants to be able to come off her medications if possible. Patient Active Problem List Diagnosis Date Noted ??? Chronic abdominal pain 10/29/2017 ??? Constipation 10/29/2017 ??? PMR (polymyalgia rheumatica) ([facility]) 10/29/2017 ??? Raynaud phenomenon 10/29/2017 ??? Frequent UTI 10/29/2017 ??? Factor V Leiden ([facility]) 10/29/2017 ??? 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 Chronic abdominal pain ??? Factor V Leiden ([facility]) 10/29/2017 ??? Frequent UTI 10/29/2017 ??? PMR (polymyalgia rheumatica) ([facility]) ??? Post herpetic neuralgia ??? Raynaud phenomenon 10/29/2017 PAST SURGICAL HISTORY: has a past surgical history that includes Interstim. PAST FAMILY HISTORY: family history includes *Other(comment) in her father; Asthma in her maternal grandmother; Breast Cancer in her maternal grandmother; Dementia in her paternal grandfather; High Blood Pressure in her paternal grandfather; Lung Cancer in her father; Ulcerative Colitis in her sister. 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 MEDICATION REVIEW: Medications reviewed & updated. ALLERGIES: Allergies as of 10/29/2017 ??? (No Known Allergies) REVIEW OF SYSTEMS: A ten point ROS was performed and was negative except for pertinent positives in the HPI PHYSICAL EXAM: Vitals: BP 110/70 (BP Cuff Location: Right arm, Patient Position: Sitting, BP Cuff Sizes: Adult, regular) Pulse 60 Comment: reg Temp 36 ??C (96.8 ??F) (Tympanic) Resp 14 Comment: reg Ht 160 cm (63) Wt 50.3 kg (111 lb) LMP 10/15/2017 (Approximate) BMI 19.66 kg/m2 Gen - NAD HEENT - no cervical LAD, no thyromegaly, TM normal b/l CV - regular rate and rhythm, no murmurs, pulses 2+ bilaterally Lungs - clear to ausculation bilaterally Abd - soft, nontender, +BS, nondistended Ext - no edema Skin - no rashes or lesions Psych - alert and oriented x 3, normal mood and affect Neuro - CN II-XII grossly intact, normal gait ASSESSMENT / PLAN : 52 y.o. female here for new visit. 1. Chronic abdominal pain - in the setting of hematuria, intermittent nausea and severe constipation. Upcoming CT abd/pelvis and cystoscopy. I advised bowel regimen to see if that helps her pain which has never been tried. Also I have ordered colonoscopy (she needed one for screening purposes anyway).The pain is diffuse but doesn't seem c/w H pylori, PUD or other dyspepsia syndromes. - checking labs including thyroid 2. Possible PMR/Chronic fatigue - rheum referral to [facility] per pt request, which I think is a great idea. I have started downtitrating her prednisone today (10mg to 9mg) and will go to 8mg next visit if tolerating. Rechecking CRP. 3. Frequent UTIs/Incontinence - followed by the continence center as above. She asked me about getting the interstim removed and I don't know if that's possible. - continue oxybutynin 4. Raynauds - stable 5. ADD - continue adderall. Discuss next visit that q3mo visits are needed and sign agreement form. We discussed how this can effect raynauds but she feels it's necessary to function at work 6. Depression/Anxiety - declines therapy at this time but she may be open to it in the future Discuss HM next visit. documented in this encounter Plan of Treatment Scheduled Orders Name Type Priority Associated Diagnoses Order S chedule COLONOSCOPY REQUEST GI Routine Colon cancer screenin g Ordered: 10/29/2017 Scheduled Referrals Name Type Priority Associated Order Schedule Diagnoses AMB CONS/FOLLOW UP Outpatient Referral Routine PMR (polymyalgi a Ordered: RHEUMATOLOGY rheumatica) 10/29/2017 ([facility]) documented as of this encounter Results C REACTIVE PROTEIN (10/29/2017 10:53 EDT) Pathologist Sig nature C Reactive Protein <7.0 <10.0 mg/L [facility] Specimen Blood specimen (specimen) - Blood Performing Organization Address City/[facility]/ZIP Code Phon e Number [facility] [address] [place] [address] SERVICES THYROID CASCADE (10/29/2017 10:53 EDT) TSH 1.94 0.47 - 4.68 [facility] Comment: uIU/ml LABORATORY SERVICES TSH cascade is not recommended for patients in which pituitary or hypothalamic disorders are suspected. The results of this assay can be falsely lowered due to the consumption of Biotin. Specimen Blood specimen (specimen) - Blood Performing Organization Address [facility] Phon e Number [facility] [address] [place] [address] SERVICES LIPID PROFILE (INCLUDES CHOLESTEROL, TRIGLYCERIDES, HDL, LDL) (10/29/2017 10:53 EDT) Cholesterol 201 mg/dl [facility] Comment: LABORATORY Desirable:<200 SERVICES Borderline High:200-239 High:>aq=195 Triglycerides 85 mg/dl [facility] Comment: LABORATORY Normal:<150 SERVICES Borderline High:150-199 High:200-499 Very High:>wh=100 HDL 98 mg/dl [facility] Comment: LABORATORY Low:<40 SERVICES Normal:40-60 Desirable: >60 LDL, Calculated 86 mg/dl [facility] Comment: LABORATORY Optimal:<100 SERVICES Near Optimal:100-129 Borderline High:130-159 High:160-189 Very High:>bu=756 Chol/HDL Ratio 2.1 [facility] Fasting? No [facility] Non HDL Cholesterol 103 mg/dl [facility] Comment: LABORATORY Desirable:<130 SERVICES Borderline:130-159 High: 160-189 Very High: >jm=890 Specimen Blood specimen (specimen) - Blood Performing Organization Address City/State/ZIP Code Phon e Number [facility] [address] [place] [address] SERVICES COMPREHENSIVE METABOLIC PANEL (CMP) (10/29/2017 10:53 EDT) Potassium 4.4 3.5 - 5.0 [facility] mEq/L [facility] Sodium 136 136 - 145 [facility] mEq/L [facility] Chloride 98 96 - 110 [facility] mEq/L [facility] CO2 29 22 - 32 mEq/L [facility] Total Alkaline 55 38 - 126 U/L [facility] Phosphatase [facility] Bilirubin, Total <0.5 <1.4 mg/dl [facility] AST 17 15 - 46 U/L [facility] ALT 25 <53 U/L [facility] Albumin 4.2 3.4 - 4.9 [facility] g/dl [facility] Total Protein 6.5 6.3 - 8.2 [facility] g/dl [facility] Creatinine 0.81 0.52 - 1.04 [facility] mg/dl [facility] GFR, Calculated 84 >60 [facility] Comment: ml/min/1.73m2 [facility] eGFR calculated using CKD-EPI equation for SERVICES non Americans. Multiply eGFR by 1.16 for Americans. BUN 18 10 - 26 mg/dl [facility] Calcium 9.6 8.5 - 10.5 [facility] mg/dl [facility] Calculated Calcium 9.4 8.5 - 10.5 [facility] mg/dl [facility] Glucose, Serum 79 70 - 100 [facility] mg/dl [facility] Fasting? No [facility] Specimen Blood specimen (specimen) - Blood Performing Organization Address City/State/ZIP Code Phon e Number [facility] [address] [place] [address] SERVICES documented in this encounter Visit Diagnoses Diagnosis Chronic abdominal pain - Primary Abdominal pain, unspecified site PMR (polymyalgia rheumatica) ([facility]) ( [facility]) Polymyalgia rheumatica Frequent UTI Urinary tract infection, site not specif ied Constipation, unspecified constipation t ype Healthcare maintenance Routine general medical examination at a health care facility Colon cancer screening Special screening for malignant neoplasm s, colon documented in this encounter Discontinued Medications Medication Sig Discontinue Reason Start Date End Date oxyCODONE (ROXICODONE) 5 Take 1 Tab by mouth 7 10/29/2017 mg immediate release every 6 hours as tablet needed for up to 15 doses for Pain. Daily Max: 20 mg predniSONE (DELTASONE) 5 Take by mouth daily. Reorder 10/29/2017 mg tablet Dose unknown dextroamphetamine-amphet Take 1 Tab by mouth Reorder 8 10/29/2017 amine (ADDERALL) 15 mg daily. Daily Max: 15 tablet mg documented as of this encounter Care Teams Conditioning Room Worker Relationship Specialty Start Date End Date Mere Gonzales MD PCP - General 10/05/17 07/30/[address] [place] [phone] documented as of this encounter
--- OUTSIDE RECORDS SUMMARY | 2021-11-28 01:54 | XMS_ITS | Encounter Summary ---
:1965 Author Organization [facility] Address [address] [place] [address] Care Team Providers Name Role Phone Mere Gonzales MD Primary Care Provider Encounter Details Date Type Department Care Team Description 12/29/2017 Phlebotomy Only [facility] Base Manager, Frequ ency of urination; - [facility] Outpatient Urinary frequency [address] [place], [place] [address] Social History Tobacco Use Types Packs/Day Years [...] Priority Date/Time Associated Diagnosis Comme nts URINE CHEMICAL Routine 12/29/2017 17:48 Frequency of Results f or this (DIP) & SEDIMENT EST urination procedure a re in (MICRO) WITHOUT the results REFLEX TO CULTURE section. BACTERIAL CULTURE, Routine 12/29/2017 17:46 Frequency of Resul ts for this URINE EST urination procedure are i n the results section. documented in this encounter Results UA, CHEMICAL AND SEDIMENT ANALYSIS (DIPSTICK AND MICROSCOPIC) (12/29/2017 17:48 EST) Color, UA Yellow [facility] Clarity, UA Clear [facility] Glucose, UA Neg Neg [facility] Bilirubin, Neg Neg [facility] Ketones, Neg Neg [facility] Refractometer 1.007 1.001 - 1.035 [facility] SG,Urine [facility] Blood, Neg Neg [facility] pH, UA 7.0 4.6 - 8.0 [facility] Protein, Neg Neg [facility] Urobilinogen, UA Normal Normal [facility] E.U./dl [facility] Nitrite, Neg Neg [facility] Leuk Esterase Neg Neg [facility] UA Method Used [facility] Comment: [facility] Testing performed using SERVICES iCentera AU-[id number]. Urine RBC Count 0 to 2 0 to 2 /HPF [facility] Automated [facility] Urine WBC Count 0 to 3 0 to 3 /HPF [facility] Automated [facility] Urine Squamous None seen None seen [facility] Epithelial Cell /LPF [facility] Count, Automated SERVICES Urine Hyaline Casts, < or = 10 < or = 10 [facility] Automated /LPF [facility] Urine Bacteria None seen None seen [facility] Count, Automated [facility] UA Comment Sediment results [facility] Comment: [facility] are unreliable on SERVICES urines unrefrig >2hrs or refrig >8hrs. Specimen Urine (substance) - Urine Performing Organization Address City/State/ZIP Code Phon e Number [facility] [address] [place] [address] SERVICES BACTERIAL CULTURE, URINE (12/29/2017 17:46 EST) Pathologist Sig nature Result No growth [facility] Specimen Urine (substance) - Urine Performing Organization Address City/State/ZIP Code Phon e Number [facility] [address] [place] [address] SERVICES documented in this encounter Visit Diagnoses Diagnosis Frequency of urination Urinary frequency Urinary frequency documented in this encounter Care Teams Metal Sheet Roller Operator Relationship Specialty Start Date End Date Mere Gonzales MD PCP - General 10/05/17 07/30/20 [address] [place] [address] documented as of this encounter
--- OUTSIDE RECORDS SUMMARY | 2021-11-28 01:54 | XMS_ITS | Encounter Summary ---
:1965 Author Organization [facility] Address [address] [place] [address] Care Team Providers Name Role Phone Mere Gonzales MD Primary Care Provider Reason for Visit Reason Onset Date Comments Appointment Related 11/10/2017 Spoke with patient Encounter Details Date Type Department Care Team Description 11/10/2017 Telephone [facility] Danitza Ramey, Kwabena ointment Related Hematology & Oncology FURNACE RELINER (Spoke with patient) - [address] [place] [address] [place], [place] [phone] (Wo rk) Social History Tobacco Use Types [...] Telephone Encounter - Sarita Barraza - 11/10/2017 1152 EDT Spoke with patient about her appointment with Danitza Ramey NP as I talked to the nurse about being on the same day as her surgery and the nurse recommended that we wait until after surgery. I askedher what her recovery time would be and she said probably about a week, she asked for a Wednesday, I offered her a 11/22 at 2:50 pm, she accepted. documented in this encounter Plan of Treatment Not on filedocumented as of this encounter Visit Diagnoses Not on filedocumented in this encounter Care Teams Healthcare Facility Administrator Relationship Specialty Start Date End Date Mere Gonzales MD PCP - General 10/05/17 07/30/20 [address] [place] [address] documented as of this encounter
--- OUTSIDE RECORDS SUMMARY | 2021-11-28 01:54 | XMS_ITS | Encounter Summary ---
:1965 Author Organization [facility] Address [address] [place] [address] Care Team Providers Name Role Phone Mere Gonzales MD Primary Care Provider Encounter Details Date Type Department Care Team Description 01/06/2018 Hospital Encounter [facility] - Garry Gonzales, Medical Office [facility] cheo HERNÁNDEZ [phone] [place] [phone] (Wo rk) Social History Tobacco Use [...] as of this encounter Discharge Diagnoses Diagnosis K59.00 Constipation, unspecified-K59.00[ ICD-10-CM] R33.9 Retention of urine, unspecified-R3 3.9[ICD-10-CM] documented in this encounter Medications at Time of Discharge Medication Sig Dispensed Refills Start Date End Date amLODIPine (NORVASC) 5 Take 1 Tab by mouth 30 Tab 2 110 10/201701/28/2018 mg tablet daily. cephALEXin (KEFLEX) 250 [...] procedure [id number] -5.86 scheduled. Questions: gram suspension [facility] Gastroenterology: [phone] or GI Doctor's Office. predniSONE (DELTASONE) 1 [...] on filedocumented in this encounter Care Teams Lugger Relationship Specialty Start Date End Date Mere Gonzales MD PCP - General 10/05/17 07/30/20 [address] [place] [address] documented as of this encounter
--- OUTSIDE RECORDS SUMMARY | 2021-11-28 01:54 | XMS_ITS | Encounter Summary ---
:1965 Author Organization [facility] Address [address] [place] [address] Care Team Providers Name Role Phone Elle Cates DO Primary Care Provider Reason for Visit Reason Comments Back Pain Encounter Details Date Type Department Care Team Description 04/14/2017 Hospital Encounter [facility] Unknown, Pat ient left without Urgent Care - Seble Rainey MD being seen ([facility] [phone] Dx) [address] [facility] (Work) [place] [address] [phone] Social History Tobacco Use Types Packs/Day Years [...] 10:24 EST documented as of this encounter Medications at [...] Dose unknown documented as of this encounter Discharge Disposition Disposition Code Departure Means Destination Home or Self Care documented in this encounter Plan of Treatment Not on filedocumented as of this encounter Visit Diagnoses Diagnosis Patient left without being seen - Primar y Surgical or other procedure not carried out because of patient's decision documented in this encounter Care Teams Loom Tuner Relationship Specialty Start Date End Date Elle Cates DO PCP - General 08/31/11 10/04/17 [address] [place] [address] documented as of this encounter
--- OUTSIDE RECORDS SUMMARY | 2021-11-28 01:54 | XMS_ITS | Encounter Summary ---
:1965 Author Organization [facility] Address [address] [place] [address] Care Team Providers Name Role Phone Mere Gonzales MD Primary Care Provider Reason for Visit Reason Onset Date Comments Update 11/09/2017 Encounter Details Date Type Department Care Team Description 11/09/2017 Telephone [facility] Urology [address], Update - [facility] MD 111 [facility] [address] [place], [place] [address] [place] [address] [facility] [address] [place], [place] [address] (Wo rk) Social History Tobacco Use Types [...] this encounter Miscellaneous Notes Telephone Encounter - Hansa Burgess - 11/09/2017 1038 EDT Christine from [facility] , calling, gave number to [facility] documented in this encounter Plan of Treatment Not on filedocumented as of this encounter Visit Diagnoses Not on filedocumented in this encounter Care Teams Area Operations Director Relationship Specialty Start Date End Date Mere Gonzales MD PCP - General 10/05/17 07/30/20 [address] [place] [address] documented as of this encounter
--- OUTSIDE RECORDS SUMMARY | 2021-11-28 01:54 | XMS_ITS | Encounter Summary ---
:1965 Author Organization [facility] Address [address] [place] [address] Care Team Providers Name Role Phone Elle Cates DO Primary Care Provider Encounter Details Date Type Department Care Team Description 04/14/2016 Orders Only [facility] Juanito Bowie Ki dney stones Urology - [facility] (Primary Dx) 111 [facility] [address] [place] [address] Avenue [phone] [facility], [address] [place] [address] (Wo rk) Social History Tobacco Use Types [...] kidney documented in this encounter Care Teams Airplane Electrician Relationship Specialty Start Date End Date Elle Cates DO PCP - General 08/31/11 10/04/17 [address] [place] [address] documented as of this encounter
--- OUTSIDE RECORDS SUMMARY | 2021-11-28 01:54 | XMS_ITS | Encounter Summary ---
:1965 Author Organization [facility] Address [address] [place] [address] Care Team Providers Name Role Phone Elle Cates DO Primary Care Provider Reason for Visit Reason Onset Date Comments Update 02/03/2016 no insurance Encounter Details Date Type Department Care Team Description 02/03/2016 Telephone [facility] Elle Cates Update ( no insurance) Osteoporosis - Jimbo Sellers, [facility] 120 [facility] [address] [place] [address] [phone] Social History Tobacco Use Types Packs/Day Years [...] this encounter Miscellaneous Notes Telephone Encounter - Chapis Quarles - 02/03/2016 1019 EST Patient called to schedule her DXA wanted to advise that she doesn't have insurance and has spoken with the billing dept to establish payment options ect documented in this encounter Plan of Treatment Not on filedocumented as of this encounter Visit Diagnoses Not on filedocumented in this encounter Care Teams Patient Access Specialist Relationship Specialty Start Date End Date Elle Cates DO PCP - General 08/31/11 10/04/17 [facility] [place] [address] documented as of this encounter
--- OUTSIDE RECORDS SUMMARY | 2021-11-28 01:54 | XMS_ITS | Encounter Summary ---
:1965 Author Organization [facility] Address [address] [place] [address] Care Team Providers Name Role Phone Mere Gonzales MD Primary Care Provider Reason for Visit Reason Comments Nephrolithiasis Follow Up (3 - 10 Business Days) - Specialty Report Received Specialty Diagnoses / Procedures Referred By Contact Refer red To Contact Urology Diagnoses Nephrolithiasis Alex Nowak MD [place], Richard [address] THEODORA HERNÁNDEZ [address] [place], [place] [id number]- [address] [place] [address] [employer], [address] [place] [address] Phone: Fax: Referral ID Status Reason Start Expiration Visits Visits Date Date Requested Authorized [id number] Specialty Specialty 11/11/2017 1 1 Report Services Received Required Encounter Details Date Type Department Care Team Description 11/25/2017 Office Visit [facility] Alex Ren y stones Urology - Medical MD [place] (Primary Dx) Office Building [address] [place] [address] [address], [place] [address] (Wo rk) Social History Tobacco [...] documented as of this encounter Progress Notes Adriana Wilson RN - 11/25/2017 1530 EDT Prior to cystoscopy lidocaine 2% gel was instilled into the urethra and Bactrim DS given to pt. Adriana Wilson RN 11/25/2017 16:03 documented in this encounter Procedure Notes Alex Ren MD - 11/25/2017 1530 EDT Procedure: Procedures Cystourethroscopy with Stent Removal Indications: S/P Ureteral Stent Insertion Unilateral Procedure: The patient was correctly identified and taken into the procedure room. The risks, benefits, complications, treatment options and expected outcomes were discussed with the patient. The patient concurred with the proposed plan, and informed consent was obtained. The patient was placed into the supine position. The urethral meatus was prepped and draped in the usual sterile fashion. Local anesthesia was achieved with 10cc of 2% lidocaine jelly. A 16 hungarian flexible cystoscope was inserted into the anterior urethral meatus and passed into the bladder. The left ureteral stent was identified and grasped with a cystoscopic grasping forceps and removed intact. The patient tolerated the procedure well and was discharged home in good condition. The patient received Cipro 500 mg tab for meghann-procedural antibiotic prophylaxis. documented in this encounter Plan of Treatment Scheduled Orders Name Type Priority Associated Diagnoses Order S chedule UROLOGY RENAL US Procedure Routine Kidney stones Ordered: 1 documented as of this encounter Procedures Procedure Name Priority Date/Time Associated Diagnosis Comme nts POCT URINE Routine 11/25/2017 15:55 Kidney stones Results fo r this DIPSTICK, CLINITEK EDT procedure are in the results section. documented in this encounter Results (ABNORMAL) POCT URINE DIPSTICK, CLINITEK (11/25/2017 15:55 EDT) Color YELLOW Yellow [facility] Clarity, UA Clear Clear [facility] Glucose Neg Neg [facility] Bilirubin Neg Neg [facility] Ketones Neg Neg [facility] Specific [place] 1.010 1.001 - 1.035 [facility] Blood 1+ (A) [facility] pH 7.0 4.6 - 8.0 [facility] Protein Neg [facility] Urobilinogen 0.2 0.2 - 1.0 [facility] mg/dL LABORATORY SERVICES Nitrite Neg Neg [facility] Leuk Esterase 1+ (A) [facility] hard candy spinner ID [id number]: [facility] Test performed at LABORATORY [facility] [address] Urology Specimen Urine (substance) - Urine Performing Organization Address City/State/ZIP Code Phon e Number [facility] [address] [place] [address] SERVICES documented in this encounter Visit Diagnoses Diagnosis Kidney stones - Primary Calculus of kidney documented in this encounter Administered Medications Inactive Administered Medications - up to 3 most recent administrations Medication Order MAR Action Action Date Dose Rate Site sulfamethoxazole-trimethoprim Given 11/25/2017 16:02 EDT 1 Table t (BACTRIM/C0-TRIMOXAZOLE DS) 800-160 mg per tablet 1 Tab 1 Tablet, oral, NOW X1, 1 dose, On Barb 11/25/17 at 1630, Routine documented in this encounter Orders Medications Ordered That Might Not Have Count Last Ord ered Date First Ordered Date Been Administered sulfamethoxazole-trimethoprim 1 11/25/2017 (BACTRIM/C0-TRIMOXAZOLE DS) 800-160 mg per tablet 1 Tab documented in this encounter Care Teams Blindstitch Lapel Padder Relationship Specialty Start Date End Date Mere Gonzales MD PCP - General 10/05/17 07/30/20 [address] [place] [address] documented as of this encounter
--- OUTSIDE RECORDS SUMMARY | 2021-11-28 01:54 | XMS_ITS | Encounter Summary ---
:1965 Author Organization [facility] Address [address] [place] [address] Care Team Providers Name Role Phone Elle Cates DO Primary Care Provider Reason for Visit Reason Onset Date Comments Appointment Related 04/13/2016 Encounter Details Date Type Department Care Team Description 04/13/2016 Telephone [facility] Subhash Bowie DO Appointment Related Urology - [facility] [address] [address] [place], [place] [address] (Wo rk) Social History Tobacco [...] encounter Miscellaneous Notes Telephone Encounter - Barbie Schaeffer - 04/14/2016 6746 EST Message was left for patient. Follow up has been rescheduled to 04/21/16 at 3:[address] Bowie. elephone Encounter - Evie Delgado - 04/13/2016 1716 EST PAS Message: Heike called to cancel appointment with Juanito Bowie DO on April 14 at 1530 due to appointment having been reschedule on a date time she can not make.. Patient would like a call back to reschedule? YES documented in this encounter Plan of Treatment Not on filedocumented as of this encounter Visit Diagnoses Not on filedocumented in this encounter Care Teams Courtesy Car Driver Relationship Specialty Start Date End Date Elle Cates DO PCP - General 08/31/11 10/04/17 [address] [place] [address] documented as of this encounter
--- OUTSIDE RECORDS SUMMARY | 2021-11-28 01:54 | XMS_ITS | Encounter Summary ---
:1965 Author Organization [facility] Address [address] [place] [address] Care Team Providers Name Role Phone Mere Gonzales MD Primary Care Provider Reason for Visit Reason Comments Hematuria Referral (Routine) - Authorization Not Required Specialty Diagnoses / Procedures Referred By Contact Refer red To Contact Pelvic Medicine Diagnoses UTI (urinary tract infection) Self, Referral Mob Pelvic Medicine [facility] [address] [place], [place] [address] Phone: Fax: Referral ID Status Reason Start Expiration Visits Visits Date Date Requested Authorized [id number] Authorization Not 1 1 Required Encounter Details Date Type Department Care Team Description 11/08/2017 Office Visit [facility] Dinorah Rose, Pelvic Medicine and MD Ver[place] unspecified type Reconstructive Surgery - [address] [place] [address] (Pr imary Dx) Medical Office [place] [address] [address] [place] [address] [facility] [phone] [place] [phone] Social History Tobacco Use Types Packs/Day Years [...] documented as of this encounter Progress Notes Dinorah Rose MD - 11/08/2017 1500 EDT Cystourethroscopy Procedure Note Preoperative Diagnosis: Referred for cystoscopy by Jenny Ryan NP for microscopic hematuria Current Outpatient Prescriptions Medication Sig Dispense Refill ??? clobetasol (TEMOVATE) [...] gram suspension Instructions mailedonce procedure scheduled. Questions: [facility] Gastroenterology: [phone] or GI Doctor's Office. (Patient not taking: Reported on 11/08/2017) 4000 mL 0 ??? predniSONE (DELTASONE) 1 mg tablet Take 4 Tabs by mouth daily. Total dose 9 mg(+5mg tab) 120 Tab0 ??? predniSONE (DELTASONE) 5 mg tablet Take 1 Tab by mouth daily. Total dose 9 mg 30 Tab 0 No current facility-administered medications for this visit. No Known Allergies Social History Social History ??? Marital status: Spouse name: N/A ??? Number of children: N/A ??? Years of education: N/A Occupational History ??? Not on file. Social History Main Topics ??? Smoking status: Never Smoker ??? Smokeless tobacco: Never Used ??? Alcohol use Yes ??? Drug use: No ??? Sexual activity: Not on file Other Topics Concern ??? 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 Postoperative Diagnosis: same Procedure: The patient was correctly identified and [...] 10cc of 2% lidocaine jelly. A 16 frisian flexible cystoscope was inserted into the anterior urethral meatus and passed into the bladder. The bladder was filled with 250 mL of normal saline without pain. The bladder and urethra were fully inspectedwith the following findings: Findings: Urethra: without diverticulae, scarring, stricture or urethritis Bladder: Normal mucosa, ureteral orifices in normal anatomic position( left smaller than right), smooth walled, no tumors, stones, petechiae or diverticulae. The patient tolerated the procedure well. F/U with Jenny Ryan NP this afternoon to discuss management. Dinorah Rose MD documented in this encounter Plan of Treatment Not on filedocumented as of this encounter Visit Diagnoses Diagnosis Hematuria, unspecified type - Primary documented in this encounter Care Teams Steel Handler Relationship Specialty Start Date End Date Mere Gonzales MD PCP - General 10/05/17 07/30/[address] [place] [phone] documented as of this encounter
--- OUTSIDE RECORDS SUMMARY | 2021-11-28 01:55 | XMS_ITS | Encounter Summary ---
:1965 Author Organization [facility] Address [address] [place] [address] Care Team Providers Name Role Phone Elle Cates DO Primary Care Provider Encounter Details Date Type Department Care Team Description 02/28/2014 Hospital Encounter [facility] - Lit Villegas DO [id number] [place] [phone] (Wo rk) Social History Tobacco Use Types [...] as of this encounter Discharge Diagnoses Diagnosis V72.60 LABORATORY EXAMINATION, UNSPECIFI ED[ICD-9-CM] documented in this encounter Medications at Time of Discharge Medication Sig Dispensed Refills Start Date End Date buPROPion (WELLBUTRIN) Take 75 mg by mouth 2 0 03/23/2016 75 mg tablet times daily. clobetasol (TEMOVATE) Apply topically 2 0 01/24/2018 0.05 % ointment times daily. dextroamphetamine-amphet Take 15 mg by mouth 0 10/11/2017 amine (ADDERALL) 15 mg daily. tablet hydrOXYzine (ATARAX) 25 Take 25 mg by mouth 0 11/26/2017 mg tablet every evening. documented as of this encounter Discharge Disposition Disposition Code Departure Means Destination Home or Self Care documented in this encounter Plan of Treatment Not on filedocumented as of this encounter Procedures Procedure Name Priority Date/Time Associated Diagnosis Comme nts MA 2D/3D BILATERAL 01/07/2015 9:58 EST Re sults for this [facility] procedure are in SCREENING MAMMO the results section. documented in this encounter Results MA 2D/3D BILATERAL [facility] SCREENING MAMMO (01/07/2015 9:58 EST) Anatomical Region Laterality Modality Other Specimen Narrative [facility] RADIOLOGY S PROSPECT - 01/09/2015 8:54 EST Comparison has been made to previous images. Bilateral Breast Findings: (Routine digi jamie views with CAD and 3D images with Tomosynthesis) The breasts are extremely dense (greater than 75% fibroglandular) which could obscure a lesion on mammogra phy. No significant masses, calcifications or other abnormalities ar e seen. IMPRESSION: BILATERAL BREASTS: Negative, no evidence of malignancy. Normal interval follow-up is recommended in 12 months. OVERALL ASSESSMENT - CATEGORY 1 - NEGATI VE END OF IMPRESSION These results will be communicated to yo ur patient via a lay letter from Radiology. If any additional imagin g is needed we will contact your patient directly. I have personally reviewed the images an d the above interpretation and agree with the findings. Procedure Note Vira Uriarte MD - 01/09/2015 Comparison has been made to previous moon ges. Bilateral Breast Findings: (Routine digi jamie views with CAD and 3D images with Tomosynthesis) The breasts are extremely dense (greater than 75% fibroglandular) which could obscure a lesion on mammogra phy. No significant masses, calcifications or other abnormalities ar e seen. IMPRESSION: BILATERAL BREASTS: Negative, no evidence of malignancy. Normal interval follow-up is recommended in 12 months. OVERALL ASSESSMENT - CATEGORY 1 - NEGATI VE END OF IMPRESSION These results will be communicated to yo ur patient via a lay letter from Radiology. If any additional imagin g is needed we will contact your patient directly. I have personally reviewed the images an d the above interpretation and agree with the findings. Performing Organization Address City/State/ZIP Code Phon e Number [id number] RAD[facility]Y S PROSPECT documented in this encounter Visit Diagnoses Not on filedocumented in this encounter Care Teams Retirement Specialist Relationship Specialty Start Date End Date Elle Cates DO PCP - General 08/31/11 10/04/17 [address] [place] [address] documented as of this encounter
--- OUTSIDE RECORDS SUMMARY | 2021-11-28 01:55 | XMS_ITS | Encounter Summary ---
:1965 Author Organization [facility] Address [address] [place] [address] Care Team Providers Name Role Phone Unavailable Primary Care Provider Unavailable Encounter Details Date Type Department Care Team Description 09/26/2003 Office Visit [facility] Daisy Mejia PA Cardiology - Main [address] [place] [address] [place], [place] [id number] [phone] Social History Tobacco Use Types Packs/Day Years [...] EST documented as of this encounter Discharge Disposition Disposition Code Departure Means Destination Auto Discharge documented in this encounter Plan of Treatment Not on filedocumented as of this encounter Procedures Procedure Name Priority Date/Time Associated Diagnosis Comme nts ANTI NUCLEAR AB Routine 09/26/2003 10:49 Results for this (INEZ), IFA EDT procedure are i n the results section. documented in this encounter Results ANTI NUCLEAR ANTIBODY (09/26/2003 10:49 EDT) Pathologist Sig nature Anti Nuclear Ab <40 0 - 40 [place] [facility] Specimen Performing Organization Address City/State/ZIP Code Phon e Number [facility] [address] [place] [address] SERVICES [facility] [address] [place] [address] documented in this encounter Visit Diagnoses Not on filedocumented in this encounter
--- OUTSIDE RECORDS SUMMARY | 2021-11-28 01:55 | XMS_ITS | Encounter Summary ---
:1965 Author Organization [facility] Address [address] [place] [address] Care Team Providers Name Role Phone John Grande MD Primary Care Provider Elle Cates DO Primary Care Provider Mere Gonzales MD Primary Care Provider Ajay Castaneda PA-C Primary Care Provider Encounter Details Date Type Department Care Team Description 10/26/2001 Hospital Encounter [facility] - John Grande MD [address] [place] [phone] Other Unknown, ProviderMD [address] [place], [place] [address] Social History Tobacco Use Types Packs/Day Years [...] / COVID-19? documented as of this encounter Plan of Treatment Not on filedocumented as of this encounter Procedures Procedure Name Priority Date/Time Associated Comments Diagnosis TSH Routine 10/26/2001 10:40 Results for this EDT procedure are i n the results section. COMPREHENSIVE Routine 10/26/2001 10:40 Results fo r this METABOLIC PANEL (CMP) EDT proced ure are in the results section. documented in this encounter Results TSH (10/26/2001 10:40 EDT) Pathologist Sig nature TSH 1.41 0.35 - 5.50 uIU/ml [facility] Specimen Performing Organization Address City/State/ZIP Code Phon e Number [facility] [address] [place] [address] SERVICES [facility] [address] [place] [address] (ABNORMAL) COMPREHENSIVE METABOLIC PANEL (10/26/2001 10:40 EDT) Pathologist Sig [facility] Potassium 4.1 3.5 - 5.0 mEq/L [facility] Sodium 137 136 - 145 mEq/L [facility] Chloride 100 96 - 110 mEq/L [facility] CO2 29 24 - 30 mEq/L [facility] Total Alkaline 59 38 - 126 U/L [facility] Phosphatase Bilirubin, Total 0.4 0.2 - 1.3 mg/dl [facility] AST 17 8 - 50 U/L [facility] ALT 28 15 - 75 U/L [facility] Albumin 4.5 3.0 - 5.5 g/dl [facility] Total Protein 7.4 6.0 - 8.5 g/dl [facility] Creatinine 0.7 0.7 - 1.5 mg/dl [facility] BUN 9 (L) 10 - 26 mg/dl [facility] Calcium 9.4 8.5 - 10.5 mg/dl [facility] Calculated Calcium 9.3 8.5 - 10.5 mg/dl [facility] Glucose, Serum 80 70 - 110 mg/dl [facility] Albumin/Globulin Ratio 1.6 [facility] Specimen Performing Organization Address City/State/ZIP Code Phon e Number [facility] [address] [place] [address] SERVICES [facility] [address] [place] [address] documented in this encounter Visit Diagnoses Not on filedocumented in this encounter Care Teams Purchasing Manager/Sales Relationship Specialty Start Date End Date John Grande MD PCP - General 05/16/09 08/30/[address] [place], [place] [address] [phone] Elle Cates DO PCP - General 08/31/11 10/04/17 [address] [place] [address] Mere Gonzales MD PCP - General 10/05/17 07/30/20 [address] [place] [address] Ajay Castaneda PA-C PCP - General Internal Medicine - Primary 07/31/20 [address] [place] [address] documented as of this encounter
--- OUTSIDE RECORDS SUMMARY | 2021-11-28 01:55 | XMS_ITS | Encounter Summary ---
:1965 Author Organization [facility] Address [address] [place] [address] Care Team Providers Name Role Phone Roma Cates DO Primary Care Provider Encounter Details Date Type Department Care Team Description 02/17/2015 Results Only [facility] Roma Cates, DO [address] [place], [place] [address] (Wo rk) Social History Tobacco Use Types [...] Diagnosis Comme nts PAP TEST- RESULT Routine 02/18/2015 0:00 EST Resu lts for this ONLY procedure are i n the results section. documented in this encounter Results PAP TEST- RESULT ONLY (02/18/2015 0:00 EST) Pathology Report: CYTOPATHOLOGY REPORT [facility] Reports generated via electronic interface contain christiano ginal data; SERVICES however they are lacking the format of the original re port. Caution should be taken when reading/interpreting unfo rmatted reports. Name: ? EVANS UGARTE ? Accession #: ? [id number] ? : ? 1965 (Age: [age]) ??F ?Collect Da te: ? 02/18/2015 ? Location: ? DDTM ? Receive Date: ? 015 ? Provider: ROMA IRELAND DO Copy to: ?[facility] [facility] ?[address] ?[place], [place] [address] ? Final Report SPECIMEN ADEQUACY ? Satisfactory for Evaluation - transformation zone component present - scant squamous epithelial component GENERAL CATEGORIZATION ? Negative for Intraepithelial Lesion or Malignan cy ?? Specimen/Source: ??Pap Test, Cervix/Endocervix, ThinPr ep Imaging System with manual evaluation Document reviewed and electronically signed by: ? JUAN PABLO Marinelli(ASCP) ? Report ??Date: 02/25/2015 14:29 HPV with Pap Test ? Date Ordered: ? 02/25/2015 ? Status: ?? S igned Out ?Date Complete: ? 02/27/2015 ? By: ??Sys tem Interface ? Date Reported: ? 02/27/2015 ? Interpretation RESULT: Negative for HPV. No E6 or E7 mRNA is detected from HPV types 16,18,31,3 3,35, 39,45,51,52,56,58,59,66, and 68 by commercial crabber media nilam amplification. Comments Document reviewed and electronically signed by: ? System Interface ? Report date: 02/27/2015 By the signature above, the attending physician certif ies that he/she has personally conducted a gross and/or microscopic examin ation of the described specimens and rendered or confirmed the above diagnosi s. End of Report Specimen Performing Organization Address City/State/ZIP Code Phon e Number [facility] [address] [place] [address] SERVICES documented in this encounter Visit Diagnoses Not on filedocumented in this encounter Care Teams Tourist Cabin Keeper Relationship Specialty Start Date End Date Roma Cates DO PCP - General 08/31/11 10/04/17 [address] [place], [place] [address] documented as of this encounter
--- OUTSIDE RECORDS SUMMARY | 2021-11-28 01:55 | XMS_ITS | Encounter Summary ---
:1965 Author Organization [facility] system Address [address] [place] [address] Care Team Providers Name Role Phone John Grande MD Primary Care Provider Elle Cates DO Primary Care Provider Meer Gonzales MD Primary Care Provider Ajay Castaneda PA-C Primary Care Provider Encounter Details Date Type Department Care Team Description 06/12/2002 Hospital Encounter [facility] - Hilary Link MD Other [address] [facility] [address] [place], [place] [address] [place] [phone] Social History Tobacco Use Types Packs/Day Years [...] Procedure Name Priority Date/Time Associated Diagnosis Comme [facility] CYTOPATHOLOGY Routine 06/12/2002 0:00 EDT Results for this procedure are i n the results section . documented in this encounter Results CYTOPATHOLOGY (06/12/2002 0:00 EDT) Pathology Report: CYTOPATHOLOGY REPORT [facility] Reports generated via electronic interface contain christiano ginal data; however they are lacking the format of the original re port. Caution should be taken when reading/interpreting unfo rmatted reports. Name: ? CLIFTON IBARRA Rickie ? Accession #: ? [id number] : ? 1965 (Age: 37) ??F ?Collect Date: ? 05/24 Location: ? R ? Receive Date : ? 06/14/2002 Provider: ?HILARY LINK MD Copy to: ? Specimen/Source: ?ThinPrep Pap Test, Cervix/ Endocervix Last Menstrual Period: ? 05/24/02 Other: ? HPVA - HPV testing requested if ASC-US on the current ThinPrep Pap test. ? SPECIMEN ADEQUACY ? Satisfactory for Evaluation - transformation zone component present GENERAL CATEGORIZATION ? Negative for Intraepithelial Lesion or Malignan cy ? Document reviewed and electronically signed by: ? Halley Andrade [facility](ASCP) ? Report Date: ??06/16/2002 12:36 End of Report Specimen Performing Organization Address City/State/ZIP Code Phon e Number [facility] [address] [place] [address] SERVICES [facility] [address] [place] [address] documented in this encounter Visit Diagnoses Not on filedocumented in this encounter Care Teams Alliance Consultant Relationship Specialty Start Date End Date John Grande MD PCP - General 05/16/09 08/30/[address] [place] [address] [place] [phone] Elle Cates DO PCP - General 08/31/11 10/04/17 [address] [place] [address] Mere Gonzales MD PCP - General 10/05/17 07/30/20 [address] [place] [address] Ajay Castaneda PA-C PCP - General Internal Medicine - Primary 07/31/20 [address] [place] [address] documented as of this encounter
--- OUTSIDE RECORDS SUMMARY | 2021-11-28 01:55 | XMS_ITS | Encounter Summary ---
:1965 Author Organization [facility] Address [address] [place] [address] Care Team Providers Name Role Phone Unavailable Primary Care Provider Unavailable Encounter Details Date Type Department Care Team Description 03/11/2005 Before [facility] - Gilda Rajput, Converted Visit Fina andujar MD (Fina) [address] [place] [address] [address], Medical Office Building, [address] [place] [address] (Wo rk) Social History Tobacco Use Types [...] documented as of this encounter Progress Notes Gilda Rajput MD - 04/24/2009 0517 EST [facility] March 11, 2005 Dominique Collins NP [facility] [address] [place] [phone] Dear Dominique, Thank you for sending Heike for consultation regarding a 10 year history of rectal pruritus. I saw her last week; she had significant lichenification 360 degrees around the rectum. I recommended biopsy. Biopsy was done and this revealed lichen simplex chronicus with no suggestion of lichen sclerosus. Therefore we are going to do a relatively short course of treatment with clobetasol ointment to start twice a day for two weeks and then wean off over the next several weeks to try to get this undercontrol. I have asked her to followup with me in six weeks to review how the skin is healing and then we will have to watch for any potential irritants that may restart the cycle. Thank you again for sending Heike and I will keep you updated as to her progress. Sincerely, Signed by Gilda Rajput MD 03/20/2005 09:37 Fausto Ames MD Gilda Rajput MD - Gilda Rajput MD P - DIS Job ID: [id number] Document ID: [id number] cc: Dominique Collins NP documented in this encounter Plan of Treatment Not on filedocumented as of this encounter Visit Diagnoses Not on filedocumented in this encounter
--- OUTSIDE RECORDS SUMMARY | 2021-11-28 01:55 | XMS_ITS | Encounter Summary ---
:1965 Author Organization [facility] Address [address] [place] [address] Care Team Providers Name Role Phone Elle Cates DO Primary Care Provider Encounter Details Date Type Department Care Team Description 02/21/2015 Hospital Encounter [facility]- Elle Cates [facility] DO [place] [address] [facility] [address] [place], [place] [id number] [place] [phone] (Wo rk) Social History Tobacco Use Types [...] adult medic al examination without abnormal findings-Z00.00[ICD-10-CM] documented in this encounter Medications at Time [...] Code Departure Means Destination Home or Self Jail documented in this encounter Plan of Treatment Not on filedocumented as of this encounter Procedures Procedure Name Priority Date/Time Associated Diagnosis Comme nts GLUCOSE, SERUM Routine 02/21/2015 8:28 EST Result s for this procedure are i n the results section. LIPID PROFILE Routine 02/21/2015 8:28 EST Results for this (INCLUDES procedure are i n CHOLESTEROL, the results TRIGLYCERIDES, HDL, section. LDL) documented in this encounter Results GLUCOSE, SERUM (02/21/2015 8:28 EST) Pathologist Sig nature Glucose, Serum 75 70 - 100 mg/dl [facility] SERVICES Specimen Blood Performing Organization Address [facility] Phon e Number [facility] [address] [place] [address] SERVICES LIPID PROFILE (INCLUDES CHOLESTEROL, TRIGLYCERIDES, HDL, LDL) (02/21/2015 8:28 EST) Cholesterol 200 mg/dl [facility] Comment: LABORATORY Desirable:<200 SERVICES Borderline High:200-239 High:>gt=[id number] Triglycerides 37 mg/dl [facility] Comment: LABORATORY Normal:<150 SERVICES Borderline High:150-199 High:200-499 Very High:>jr=[id number] HDL 81 mg/dl [facility] Comment: LABORATORY Low:<40 SERVICES Normal:40-60 Desirable: >60 LDL, Calculated 112 mg/dl [facility] Comment: LABORATORY Optimal:<100 SERVICES Near Optimal:100-129 Borderline High:130-159 High:160-189 Very High:>kq=057 Chol/HDL Ratio 2.5 [facility] SERVICES Fasting? YES [facility] SERVICES Non HDL Cholesterol 119 mg/dl [facility] Comment: LABORATORY Desirable:<130 SERVICES Borderline:130-159 High: 160-189 Very High: >wd=[id number] Specimen Blood Performing Organization Address [facility] Phon e Number [facility] [address] [place] [address] SERVICES documented in this encounter Visit Diagnoses Not on filedocumented in this encounter Care Teams Brine Tank Separator Operator Relationship Specialty Start Date End Date Elle Cates DO PCP - General 08/31/11 10/04/17 [address] [place] [address] documented as of this encounter
--- OUTSIDE RECORDS SUMMARY | 2021-11-28 01:55 | XMS_ITS | Encounter Summary ---
:1965 Author Organization [facility] Address [address] [place] [address] Care Team Providers Name Role Phone Unavailable Primary Care Provider Unavailable Encounter Details Date Type Department Care Team Description 05/09/2008 Hospital Encounter [facility] - Mara Mena, Other MD 111 [facility] [address] [place] [address] [place] [address] Social History Tobacco Use Types Packs/Day Years [...] Procedure Name Priority Date/Time Associated Comments Diagnosis RAD US ABDOMEN ONE 06/04/2008 8:45 Result s for this ORGAN/QUADRANT EDT procedure are in the results section. CYTOPATHOLOGY Routine 05/09/2008 0:00 Results for this EDT procedure are i n the results section. documented in this encounter Results RAD US ABDOMEN ONE ORGAN/QUADRANT (06/04/2008 8:45 EDT) Anatomical Region Laterality Modality Other Specimen Narrative [facility] - 06/19/2008 2: 17 EDT luq tenderness with back pain US ABD ONE ORG/QUAD ??Jun 04, 2008 8:45: 00 AM Signs and Symptoms: ??Right upper quadra nt tenderness with back pain Comparison: None Findings: The liver is normal in echotex ture, morphology, and size (14 cm). A cyst within the left lobe tanya er measures 1.1 x 1.8 x 1.4 cm. There is no intra or extrahepatic bi liary ductal dilatation with the common hepatic duct measuring 4 mm. There is a 5 mm polypoid structure within the gallbladder lumen w ithout shadowing; this is most consistent with a gallbladder carole sterol polyp. Two additional smaller polyps are noted one in the neck of the gallbladder and one in the fundus each measuring less than 2 mm in size. There is no cholelithiasis, no gallbladder wall thic kening, and no pericholecystic fluid. The patient exper ienced nonspecific tenderness in the region of the gallbladder. The pancreas is normal in morphology and echotexture. There is no pancreatic ductal dilatation. The right kidney is normal in morphology, echotexture, and size, 12 cm . Visualized portions of the IVC and aorta are normal. Impression: 1. Gallbladder polyps...the largest bein g 5mm in diameter. 2. No cholelithiasis or evidence of chol ecystitis. 3. Nonspecific tenderness in the right u pper quadrant. I have personally reviewed the images an d the above interpretation and agree with the findings. Procedure Note Yvon Solomon MD / Eusebio Gao, DO - 06/19/2008 luq tenderness with back pain US ABD ONE ORG/QUAD Jun 04, 2008 8:45:00 AM Signs and Symptoms: Right upper quadrant tenderness with back pain Comparison: None Findings: The liver is normal in echotex ture, morphology, and size (14 cm). A cyst within the left lobe tanya er measures 1.1 x 1.8 x 1.4 cm. There is no intra or extrahepatic bi liary ductal dilatation with the common hepatic duct measuring 4 mm. There is a 5 mm polypoid structure within the gallbladder lumen w ithout shadowing; this is most consistent with a gallbladder carole sterol polyp. Two additional smaller polyps are noted one in the neck of the gallbladder and one in the fundus each measuring less than 2 mm in size. There is no cholelithiasis, no gallbladder wall thic kening, and no pericholecystic fluid. The patient exper ienced nonspecific tenderness in the region of the gallbladder. The pancreas is normal in morphology and echotexture. There is no pancreatic ductal dilatation. The right kidney is normal in morphology, echotexture, and size, 12 cm . Visualized portions of the IVC and aorta are normal. Impression: 1. Gallbladder polyps...the largest bein g 5mm in diameter. 2. No cholelithiasis or evidence of chol ecystitis. 3. Nonspecific tenderness in the right u pper quadrant. I have personally reviewed the images an d the above interpretation and agree with the findings. Performing Organization Address City/State/ZIP Code Phon e Number [facility] 111 [facility] [address] [facility] [address] [place], [place] [address] CYTOPATHOLOGY (05/09/2008 0:00 EDT) Pathology Report: CYTOPATHOLOGY REPORT ? [facility] ? LAB Reports generated via [email or web address] interface contain original data; ? however they are lacking the format of the original report. ? Caution should be taken when reading/interpreting unformatted reports. ? Name: ? ANDREW IBARRA ? Accession #: ? [id number] ? : ? 1965 (Age: 43) ??F ?Collect Date: ? 05/09/2008 ? Location: ? [facility] ? Receive Date: ? 05/10/2008 ? Provider: ?MARA VISEL LI MD ? Copy to: ? Specimen/Source: ? Pap Test, Cervix/Endocervix, ThinPrep Imaging System ? with manual evaluation ? Last Menstrual Period: ? 03/11/09 ? Other: ? HPVA - HPV testing requested if ASC-US on the current ThinPrep Pap test. ? SPECIMEN ADEQUACY ? Satisfactory for Eval uation ? - transformation zone compon ent present ? GENERAL CATEGORIZATION ? Other, see interpreta tion ? INTERPRETATION ? Reactive cellular avel nges associated with inflammation present (includes ?? repair). ? Endometrial cells present in a woman equal to or greater than age 40. ? Negative for Intraepithelial Lesion. ? EDUCATIONAL NOTES/RECOMMENDA TIONS ? Benign appearing endo metrial cells on Pap tests are usually a normal ? finding in women with regula r menstrual cycles, especially if the Pap test was ?? collected during the first h daniel of the menstrual cycle. ? There is data showing that e ndometrial cells on Pap tests may be associated with endometrial/uterine abnormal ities in post menopausal women or in perimenopausal women with abnormal bleeding . ? There is limited data on the significance of benign endometrial cells in post ?? menopausal women on HRT. ??C linical correlation is recommended. ? Note: ??The Pap test is not an accurate test for the screening of endometrial ? lesions and should not be us ed as a follow up in patients with clinical ? suspicion of endometrial pat hology. ? Document reviewed and electr onically signed by: ? CHARLENE D PLOTZ MD ? Report Date: ??03/27/ 2009 18:16 ? End of Report ? Specimen Performing Organization Address City/State/ZIP Code Phon e Number [facility] [address] [place] [address] SERVICES [facility] [address] [place] [address] documented in this encounter Visit Diagnoses Not on filedocumented in this encounter
--- OUTSIDE RECORDS SUMMARY | 2021-11-28 01:55 | XMS_ITS | Encounter Summary ---
:1965 Author Organization [facility] Address [address] [place] [address] Care Team Providers Name Role Phone John Grande MD Primary Care Provider Encounter Details Date Type Department Care Team Description 04/25/2007 Results Only [facility] - Mara Diaz MD conversion [address] [place] [address] [place], [place] [address] [phone] Social History Tobacco Use Types Packs/Day Years [...] Date/Time Associated Diagnosis Comme nts CYTOPATHOLOGY Routine 04/25/2007 0:00 EST Results for this procedure are i n the results section . documented in this encounter Results CYTOPATHOLOGY (04/25/2007 0:00 EST) Pathology Report: CYTOPATHOLOGY REPORT [facility] Reports generated via electronic interface contain christiano ginal data; however they are lacking the format of the original re port. Caution should be taken when reading/interpreting unfo rmatted reports. Name: ? CLIFTON IBARRA ? Accession #: ? [id number] : ? 1965 (Age: 42) ??F ?Collect Date: ? 04/2007 Location: ? [facility] ? Receive Date : ? 04/26/2007 Provider: ?MARA STAFFORD MD Copy to: ? Specimen/Source: ? ThinPrep Pap Test, Cervix, processed on [email or web address] ThinPrep Imaging System, with manual evaluation Last Menstrual Period: ? 04-12-07 Other: ? HPVA - HPV testing requested if ASC-US on the current ThinPrep Pap test. ? SPECIMEN ADEQUACY ? Satisfactory for Evaluation - transformation zone component present GENERAL CATEGORIZATION ? Negative for Intraepithelial Lesion or Malignan cy INTERPRETATION ? Reactive cellular avel nges associated with inflammation present (includes repair). ? Document reviewed and electronically signed by: ? Suzanna Daniel MD PhD ? Report Date: ??04/29/2007 11:50 End of Report Specimen Performing Organization Address City/State/ZIP Code Phon e Number [facility] [address] [place] [address] SERVICES [facility] [address] [place] [address] documented in this encounter Visit Diagnoses Not on filedocumented in this encounter Care Teams Floor Framer Relationship Specialty Start Date End Date John Grande MD PCP - General 05/16/09 08/30/[address] [place] [address] [place] [address] documented as of this encounter
--- OUTSIDE RECORDS SUMMARY | 2021-11-28 01:55 | XMS_ITS | Encounter Summary ---
:[address] [facility] Address [address] [place] [address] Care Team Providers Name Role Phone John Grande MD Primary Care Provider Encounter Details Date Type Department Care Team Description 07/31/2011 Hospital Encounter [facility] - Shantel Ford Prospect MD [address] [address] [place] [address] Social History Tobacco Use Types Packs/Day Years [...] on filedocumented in this encounter Care Teams Orthotic/Prosthetic Clinician Relationship Specialty Start Date End Date John Grande MD PCP - General 05/16/09 08/30/[address] [place], [place] [address] [address] documented as of this encounter
--- OUTSIDE RECORDS SUMMARY | 2021-11-28 01:55 | XMS_ITS | Encounter Summary ---
:1965 Author Organization [facility] Address [address] [place] [address] Care Team Providers Name Role Phone John Grande MD Primary Care Provider Elle Cates DO Primary Care Provider Mere Gonzales MD Primary Care Provider Ajay Castaneda PA-C Primary Care Provider Encounter Details Date Type Department Care Team Description 05/03/2000 Hospital Encounter [facility] - John Grande MD [address] [place] [phone] Other Unknown, ProviderMD [address] [place], [place] [address] Social History Tobacco Use Types Packs/Day Years [...] Associated Diagnosis Comme nts THYROID CASCADE Routine 05/03/2000 16:30 EST Resu lts for this procedure are i n the results section. documented in this encounter Results THYROID CASCADE (05/03/2000 16:30 EST) TSH 1.12 0.35 - 5.50 [facility] Comment: uIU/ml TSH cascade is not recommended for patients in which pituitary or hypothalamic disorders are suspected. Specimen Performing Organization Address City/State/ZIP Code Phon e Number [facility] [address] [place] [address] SERVICES [facility] [address] [place] [address] documented in this encounter Visit Diagnoses Not on filedocumented in this encounter Care Teams Logistics Director Relationship Specialty Start Date End Date John Grande MD PCP - General 05/16/09 08/30/[address] [place] [phone] Elle Cates DO PCP - General 08/31/11 10/04/17 [address] [place], [place] [phone] Mere Gonzales MD PCP - General 10/05/17 07/30/20 [address] [place] [address] Ajay Castaneda PA-C PCP - General Internal Medicine - Primary 07/31/20 [address] [place] [address] documented as of this encounter
--- OUTSIDE RECORDS SUMMARY | 2021-11-28 01:55 | XMS_ITS | Encounter Summary ---
:1965 Author Organization [facility] Address [address] [place] [address] Care Team Providers Name Role Phone John Grande MD Primary Care Provider Encounter Details Date Type Department Care Team Description 06/08/2011 Hospital Encounter [facility] [address] [place], [place] [id number] [place] [phone] (Wo rk) Social History Tobacco Use Types [...] on filedocumented in this encounter Care Teams Oil Well Services Superintendent Relationship Specialty Start Date End Date John Grande MD PCP - General 05/16/09 08/30/[address] [place], [place] [address] [phone] documented as of this encounter
--- OUTSIDE RECORDS SUMMARY | 2021-11-28 01:55 | XMS_ITS | Encounter Summary ---
:1965 Author Organization [facility] [place] [address] Care Team Providers Name Role Phone Mere Gonzales MD Primary Care Provider Reason for Referral Diagnostic Test (Routine) - Closed Specialty Diagnoses / Procedures Referred By Contact Refer red To Contact Radiology Diagnoses Neck pain Juanito Beth MD [facility] Rad Mri Procedures MRI Cervical Spine wo Contrast (Generic) [place], [place] [id number] [place] [phone] Referral ID Status Reason Start Date Expiration Date Visits V isits Requested Authorized [id number] Closed Specialty 08/18/2018 10/02/2018 1 1 Service Requested Reason for Visit Diagnostic Test (Routine) - Closed Specialty Diagnoses / Procedures Referred By Contact Refer red To Contact Radiology Diagnoses Neck pain Juanito Beth MD [facility] Rad Mri Procedures MRI Cervical Spine wo Contrast (Generic) [place] [address] [place] [address] Referral ID Status Reason Start Date Expiration Date Visits V isits Requested Authorized [id number] Closed Specialty 08/18/2018 10/02/2018 1 1 Service Requested Encounter Details Date Type Department Care Team Description 08/21/2018 Hospital Encounter MRI at [facility] Juanito Beth MD Neck pain [facility] [place] [address] [place] [address] [phone] (Wo rk) Social History Tobacco Use Types Packs/Day Years Used Date Never Smoker Smokeless Tobacco: Never Used Sex Assigned at Date Recorded Not on file documented as of this encounter Medications at Time of Discharge Medication Sig Dispensed Refills Start Date End Date cholecalciferol, Vitamin Take by mouth daily. 0 D3, (VITAMIN D-3) 5,000 unit Tablet amLODIPine (NORVASC) 5 Take 5 mg by mouth 0 04/25 mg Tablet Daily. aspirin (ASPIRIN LOW Take 81 mg by mouth 0 DOSE) 81 mg Tablet, Daily. Delayed Release (E.C.) hydrOXYzine (ATARAX) 25 Take 1-2 tabs at 0 2018 mg Tablet bedtime prn anxiety magnesium oxide (MAG-OX) Take 400 mg by mouth 0 400 mg (241.3 mg Daily. magnesium) Tablet oxybutynin (DITROPAN-XL) Take 5 mg by mouth 0 06/2017 5 mg Tablet Extended Rel Daily. 24 hr gabapentin (NEURONTIN) Take 100 mg by mouth 0 100 mg Capsule daily. diclofenac (VOLTAREN) 1 Apply 2 g topically 4 100 g 3 0 07/25/2018 % GelIndications: times daily as needed Inflammatory (hand and foot pain). arthropathy, Pain in both feet, Bilateral hip pain, Pain in both hands, Neuropathy dextroamphetamine-amphet Take 15 mg by mouth 0 09/07/2018 amine (ADDERALL) 15 mg Daily. Tablet documented as of this encounter Plan of Treatment Not on filedocumented as of this encounter Procedures Procedure Name Priority Date/Time Associated Diagnosis Comme nts MRI CERVICAL SPINE Routine 08/21/2018 2:39 PM Neck pain Res ults for this WO CONTRAST EDT procedure are i n the results section. documented in this encounter Results MRI Cervical Spine wo Contrast (Generic) (08/21/2018 2:39 PM EDT) Anatomical Region Laterality Modality C-spine Magnetic Resonance Specimen (Source) Anatomical Location Collection Method / Collectio n Time Received Time / Laterality Volume Impressions 08/21/2018 2:52 PM EDT Mild changes of cervical spondylosis as detailed above. No evidence for inflammatory arthropathy. Moderate right C5-6 neural foraminal manuelito rowing. Thank you for letting us participate in the care of this patient. For questions regarding this report, please contact e number below. ? Narrative 08/21/2018 2:52 PM EDT EXAMINATION: MRI CERVICAL SPINE WO CONTRAST (GENERIC) CLINICAL HISTORY: Neck pain with work up inflammatory arthritis TECHNIQUE: MRI of the cervical spine performed with out intravenous contrast administration. COMPARISON: None FINDINGS: Aside from mild edema at the C2 synchond rosis, the regional marrow signal is normal. The prevertebral soft tissues ar e normal in thickness. Trace retrolisthesis of C5 with respect to C6. The vertebral body heights are maintained. Cervical cord is normal in s ignal and caliber. Right signal between the C3-C4 and C4-C5 spinous processes ma y reflect venous signal (favored) or interspinous ligamentous edema. Findings at individual levels: C2-C3: Left-sided facet arthropathy cont ributes to mild right neural foraminal narrowing. No canal or right neural fora kristyn narrowing. C3-C4: ??Mild facet arthropathy and tiny left uncovertebral osteophyte contributes to minimal left neural kavita inal narrowing. No canal or right neural foraminal narrowing. C4-C5: Central disc extrusion with minim al cranial migration indents the ventral thecal sac and slightly deforms the vent ral cord. No canal or neural foraminal stenosis. C5-C6: Posterior disc osteophyte complex indents the ventral thecal sac. Mild facet and uncovertebral arthropathy cont ribute to moderate right and mild to moderate left neural foraminal narrowing . C6-C7: Posterior disc osteophyte complex indents the ventral thecal sac. Facet and mild uncovertebral arthropathy contr ibute to mild right and mild to moderate left neural foraminal narrowing. C7-T1: Mild facet arthropathy contribute s to mild right neural foraminal narrowing. No canal stenosis. Procedure Note Zoe Loredo MD - 08/21/2018Form atting of this note might be different from the original. EXAMINATION: MRI CERVICAL SPINE WO CONTR AST (GENERIC) CLINICAL HISTORY: Neck pain with work up inflammatory arthritis TECHNIQUE: MRI of the cervical spine performed with out intravenous contrast administration. COMPARISON: None FINDINGS: Aside from mild edema at the C2 synchond rosis, the regional marrow signal is normal. The prevertebral soft tissues ar e normal in thickness. Trace retrolisthesis of C5 with respect to C6. The vertebral body heights are maintained. Cervical cord is normal in s ignal and caliber. Right signal between the C3-C4 and C4-C5 spinous processes ma y reflect venous signal (favored) or interspinous ligamentous edema. Findings at individual levels: C2-C3: Left-sided facet arthropathy cont ributes to mild right neural foraminal narrowing. No canal or right neural fora kristyn narrowing. C3-C4: Mild facet arthropathy and tiny l eft uncovertebral osteophyte contributes to minimal left neural kavita inal narrowing. No canal or right neural foraminal narrowing. C4-C5: Central disc extrusion with minim al cranial migration indents the ventral thecal sac and slightly deforms the vent ral cord. No canal or neural foraminal stenosis. C5-C6: Posterior disc osteophyte complex indents the ventral thecal sac. Mild facet and uncovertebral arthropathy cont ribute to moderate right and mild to moderate left neural foraminal narrowing . C6-C7: Posterior disc osteophyte complex indents the ventral thecal sac. Facet and mild uncovertebral arthropathy contr ibute to mild right and mild to moderate left neural foraminal narrowing. C7-T1: Mild facet arthropathy contribute s to mild right neural foraminal narrowing. No canal stenosis. IMPRESSION Mild changes of cervical spondylosis as detailed above. No evidence for inflammatory arthropathy. Moderate right C5-6 neural foraminal manuelito rowing. Thank you for letting us participate in the care of this patient. For questions regarding this report, please contact e number below. Authorizing Provider Result Muna Beth MD IMG MRI ORDERABLES documented in this encounter Visit Diagnoses Diagnosis Neck pain Cervicalgia documented in this encounter Care Teams Drain Layer Relationship Specialty Start Date End Date Mere Gonzales MD PCP - General Internal Medicine 11/02/17 [address] [place] [phone] documented as of this encounter
--- OUTSIDE RECORDS SUMMARY | 2021-11-28 01:55 | XMS_ITS | Encounter Summary ---
:1965 Author Organization [facility] Address [address] [place] [address] Care Team Providers Name Role Phone Elle Cates DO Primary Care Provider Encounter Details Date Type Department Care Team Description 02/21/2015 Phlebotomy Only [facility] Outpatient [address] [place], [place] [phone] Social History Tobacco Use Types Packs/Day Years [...] on filedocumented in this encounter Care Teams Truck Driver'S Offsider Relationship Specialty Start Date End Date Elle Cates DO PCP - General 08/31/11 10/04/17 [address] [place], [place] [address] documented as of this encounter
--- OUTSIDE RECORDS SUMMARY | 2021-11-28 01:55 | XMS_ITS | Encounter Summary ---
:1965 Author Organization [facility] Address [address] [place] [address] Care Team Providers Name Role Phone Elle Cates DO Primary Care Provider Encounter Details Date Type Department Care Team Description 10/05/2011 Hospital Encounter [facility] Dontrell Cates DO [address] [facility] [address] [place], [place] [address] [place] [phone] (Wo rk) Social History Tobacco Use Types [...] Refills Start Date End Date buPROPion (WELLBUTRIN) 75 Take 75 mg by mouth 0 03/23/2016 mg tablet 2 times daily. hydrOXYzine (ATARAX) 25 mg Take 25 mg by mouth 0 11/26/2017 tablet every evening. documented as of this encounter Discharge Disposition Disposition Code Departure Means Destination Home or Self Custodial documented in this encounter Plan of Treatment Not on filedocumented as of this encounter Visit Diagnoses Not on filedocumented in this encounter Care Teams Grating Machine Operator Relationship Specialty Start Date End Date Elle Cates DO PCP - General 08/31/11 10/04/17 [address] [place] [address] documented as of this encounter
--- OUTSIDE RECORDS SUMMARY | 2021-11-28 01:55 | XMS_ITS | Encounter Summary ---
:1965 Author Organization [facility] Address [address] [place] [address] Care Team Providers Name Role Phone John Grande MD Primary Care Provider Encounter Details Date Type Department Care Team Description 07/31/2011 Results Only [facility] Mara Mena MD Laboratory Services - [address] [address] [address] [facility] [place] [address] [phone] Social History Tobacco Use Types Packs/Day Years [...] Diagnosis Comme nts PAP TEST- RESULT Routine 07/31/2011 0:00 EDT Resu lts for this ONLY procedure are i n the results section. documented in this encounter Results PAP TEST- RESULT ONLY (07/31/2011 0:00 EDT) Pathology Report: CYTOPATHOLOGY REPORT [facility] Reports generated via electronic interface contain christiano ginal data; however they are lacking the format of the original re port. Caution should be taken when reading/interpreting unfo rmatted reports. Name: ? SHANEL MEAGHANRAIMUNDO KYLEE Damian ? Accession #: ? [id number] ? : ? 1965 (Age: 46) ??F ?Collect Da te: ? 07/31/2011 ? Location: ? [facility] ? Receive Date: ? 012 ? Provider: MARA MENA MD Copy to: ? Final Report SPECIMEN ADEQUACY ? Satisfactory for Evaluation - transformation zone component present GENERAL CATEGORIZATION ? Negative for Intraepithelial Lesion or Malignan cy ?? Last Menstural Period: 07/13/2011 Specimen/Source: ??Pap Test, Vagina, ThinPrep Imaging System with manual evaluation Document reviewed and electronically signed by: ? Donnie Buckley, JUAN PABLO(ASCP) ? Report ??Date: 08/05/2011 11:32 HPV with Pap Test ? Date Ordered: ? 08/05/2011 ? Status: ?? Signed Out ?Date Complete: ? 08/07/2011 ? By: ??S ystem Interface ? Date Reported: ? 08/07/2011 ? Interpretation RESULT: Negative for HPV. No E6 or E7 mRNA is detected from HPV types 16,18,31,3 3,35, 39,45,51,52,56,58,59,66, and 68 by registered route associate media nilam amplification. Comments Document reviewed and electronically signed by: ? System Interface ? Report date: 08/07/2011 By the signature above, the attending physician certif ies that he/she has personally conducted a gross and/or microscopic examin ation of the described specimens and rendered or confirmed the above diagnosi s. End of Report Specimen Performing Organization Address City/State/ZIP Code Phon e Number [facility] [address] [place] [address] SERVICES [facility] [address] [place] [address] documented in this encounter Visit Diagnoses Not on filedocumented in this encounter Care Teams Meat Hanger Relationship Specialty Start Date End Date John Grande MD PCP - General 05/16/09 08/30/[address] [place] [address] [place] [address] documented as of this encounter
--- OUTSIDE RECORDS SUMMARY | 2021-11-28 01:55 | XMS_ITS | Encounter Summary ---
:1965 Author Organization [facility] Address [address] [place] [address] Care Team Providers Name Role Phone John Grande MD Primary Care Provider Elle Cates DO Primary Care Provider Mere Gonzales MD Primary Care Provider Ajay Castaneda PA-C Primary Care Provider Encounter Details Date Type Department Care Team Description 02/03/2000 Hospital Encounter [facility] - Hilary Link MD [address] [place] [address] Other Unknown, ProviderMD [address] [place] [address] Social History Tobacco Use Types Packs/Day Years [...] Date/Time Associated Diagnosis Comme nts CYTOPATHOLOGY Routine 02/03/2000 0:00 EST Results for this procedure are i n the results section . documented in this encounter Results CYTOPATHOLOGY (02/03/2000 0:00 EST) Pathology Report: CYTOPATHOLOGY REPORT [facility] Reports generated via electronic interface contain christiano ginal data; however they are lacking the format of the original re port. Caution should be taken when reading/interpreting unfo rmatted reports. Name: ? CLIFTON IBARRA ? Accession #: ? [id number] : ? 1965 (Age: 34) ??F ?Collect Date: ? 01/22 Location: ? RG ? Receive Date : ? 02/04/2000 Provider: ?HILARY LINK MD Copy to: ? Specimen/Source: ?ThinPrep Pap Test, Cervix/ Endocervix Last Menstrual Period: ? 01/23/00 Other: ? HPVL - HPV testing requested if LSIL/ASCUS/VINAYAK on the current ThinPrep Pap test. ? SPECIMEN ADEQUACY ? Satisfactory for evaluation. GENERAL CATEGORIZATION ? Within Normal Limits ? Document reviewed and electronically signed by: ? JUAN PABLO Cole(ASCP) ? Report Date: ??02/05/2000 09:40 End of Report Specimen Performing Organization Address City/State/ZIP Code Phon e Number [facility] [address] [place] [address] SERVICES [facility] [address] [place] [address] documented in this encounter Visit Diagnoses Not on filedocumented in this encounter Care Teams Grain Oilseed Or Pasture Grower Relationship Specialty Start Date End Date John Grande MD PCP - General 05/16/09 08/30/[address] [place] [address] [place] [phone] Elle Cates DO PCP - General 08/31/11 10/04/17 [address] [place], [place] [phone] Mere Gonzales MD PCP - General 10/05/17 07/30/20 [address] [place] [address] Ajay Castaneda PA-C PCP - General Internal Medicine - Primary 07/31/20 [address] [place] [address] documented as of this encounter
--- OUTSIDE RECORDS SUMMARY | 2021-11-28 01:55 | XMS_ITS | Encounter Summary ---
:1965 Author Organization [facility] Address [address] [place] [address] Care Team Providers Name Role Phone John Grande MD Primary Care Provider Encounter Details Date Type Department Care Team Description 08/05/2011 Results Only Imaging [facility]- Diana Mena, DEANA HERNÁNDEZ [phone] [place] [id number] Social History Tobacco Use Types Packs/Day Years [...] Name Priority Date/Time Associated Diagnosis Comme nts PATRICIA DX BILATERAL 08/31/2011 13:22 Results for this EMERGENCY 2 BREAST EDT procedure are in the results section. documented in this encounter Results PATRICIA DX BILATERAL EMERGENCY 2 BREAST (08/31/2011 13:22 EDT) Anatomical Region Laterality Modality Other Specimen Narrative [facility] - 09/02/2011 11:01 EDT PATRICIA DX BRONWYN ??EMERGENCY 2 BREAST AND RIGHT BREAST ULTRASOUND ??Aug 31, 2011 01:22:00 PM Signs and Symptoms/Comments: < Right jefferson ast mass > Comparison: None Right breast findings: Digital diagnosti c views of the right breast were obtained in standard projections wi th a triangular shaped marker over the site of palpable lump at approx imately 9:00. The standard views are supplemented with spot kylah elizabeth magnification views in craniocaudal and true lateral projection s. The breast tissue is heterogeneously dense, limiting interpre tation. There are multiple partially obscured masses noted in the u pper outer quadrant right breast. There is a dominant mass at 12:0 0 measuring 25 mm and a second mass at 9:00 measuring 27 mm. The second mass corresponds to the region of palpable concern. There ar e no suspicious microcalcifications. Sonography of the upper outer quadrant r ight breast demonstrates a cyst located at 930, 5 cm from the nippl e corresponding to the palpable lump. This measures 15 x 16 x 1 1 mm. A second cyst is at 10:00, 6 cm from the nipple measuring 22 x 11 x 22 mm and a 3rd is at 11:00, 4 cm from the nipple measuring 18 x 10 I 19 mm. Impression right breast: 1. Multiple cysts in the region of palpa ble abnormality accounting for the palpable lump. Benign, BI-RADS c ategory 2. 2. Incomplete, BI-RADS category 0. The p atient had prior mammography at [facility] and prior studie s are not currently available for comparison. An addendum to this repo rt will be dictated when the prior studies arrive. Left breast findings: Digital diagnostic views of the left breast were obtained in standard projections. T he breast tissue is heterogeneously dense, limiting interpre tation. There is a partially circumscribed mass measuring 12 mm locat ed in the central to 12:00 region. Impression left breast: Incomplete, BI-R ADS category 0. Comparison with prior mammography to be obtained fr om [facility] is recommended. If this finding is a change from prior imaging, further evaluation with ultrasound would be jeremias mmended. Results and recommendations were discuss ed with the patient by the pharmacist assistant at the time of the exam. Thi s examination was interpreted with the aid of computer-assisted detect ion (CAD) technology. Overall assessment: BI-RADS Category Ass essment 0: Incomplete, Need additional imaging evaluation. The patient will be notified of her/his breast imaging results via a lay letter from radiology. Radiology aravind l contact the patient directly regarding any findings which re quire additional imaging (Category 0) at this time. Addendum Begins Addendum: I now have available prior out side mammography for comparison. These include 2009, 2008 and 2006. Right breast findings: The dominant mass at 11:00 to 12:00 in the right breast and the masses in the upper outer quadrant (palpable region) are new from comparison imaging. These have been shown to represent cysts on sonography. This stud y remains benign, BI-RADS category 2. Annual screening mammography recommended. Left breast findings: The partially circ umscribed round to oval mass measuring 12 mm in the central to 12:00 region is new from prior imaging. BI-RADS category 0, incomplete. Further evaluation of this region with ultrasound is recommended. A member of the radiology department aravind joseph contact the patient with the updated recommendations. Overall assessment: BI-RADS Category Ass essment 0: Incomplete, Need additional imaging evaluation. Addendum Ends Procedure Note 09/02/2011 PATRICIA DX BRONWYN EMERGENCY 2 BREAST AND RIGHT BREAST ULTRASOUND Aug 31, 2011 01:22:00 PM Signs and Symptoms/Comments: < Right jefferson ast mass > Comparison: None Right breast findings: Digital diagnosti c views of the right breast were obtained in standard projections wi th a triangular shaped marker over the site of palpable lump at approx imately 9:00. The standard views are supplemented with spot kylah elizabeth magnification views in craniocaudal and true lateral projection s. The breast tissue is heterogeneously dense, limiting interpre tation. There are multiple partially obscured masses noted in the u pper outer quadrant right breast. There is a dominant mass at 12:0 0 measuring 25 mm and a second mass at 9:00 measuring 27 mm. The second mass corresponds to the region of palpable concern. There ar e no suspicious microcalcifications. Sonography of the upper outer quadrant r ight breast demonstrates a cyst located at 930, 5 cm from the nippl e corresponding to the palpable lump. This measures 15 x 16 x 1 1 mm. A second cyst is at 10:00, 6 cm from the nipple measuring 22 x 11 x 22 mm and a 3rd is at 11:00, 4 cm from the nipple measuring 18 x 10 I 19 mm. Impression right breast: 1. Multiple cysts in the region of palpa ble abnormality accounting for the palpable lump. Benign, BI-RADS c ategory 2. 2. Incomplete, BI-RADS category 0. The p atient had prior mammography at [facility] and prior studie s are not currently available for comparison. An addendum to this repo rt will be dictated when the prior studies arrive. Left breast findings: Digital diagnostic views of the left breast were obtained in standard projections. T he breast tissue is heterogeneously dense, limiting interpre tation. There is a partially circumscribed mass measuring 12 mm locat ed in the central to 12:00 region. Impression left breast: Incomplete, BI-R ADS category 0. Comparison with prior mammography to be obtained fr om [facility] is recommended. If this finding is a change from prior imaging, further evaluation with ultrasound would be jeremias mmended. Results and recommendations were discuss ed with the patient by the pharmacist assistant at the time of the exam. Thi s examination was interpreted with the aid of computer-assisted detect ion (CAD) technology. Overall assessment: BI-RADS Category Ass essment 0: Incomplete, Need additional imaging evaluation. The patient will be notified of her/his breast imaging results via a lay letter from radiology. Radiology aravind joseph contact the patient directly regarding any findings which re quire additional imaging (Category 0) at this time. Addendum Begins Addendum: I now have available prior out side mammography for comparison. These include 2009, 2008 and 2006. Right breast findings: The dominant mass at 11:00 to 12:00 in the right breast and the masses in the upper outer quadrant (palpable region) are new from comparison imaging. These have been shown to represent cysts on sonography. This stud y remains benign, BI-RADS category 2. Annual screening mammography recommended. Left breast findings: The partially circ umscribed round to oval mass measuring 12 mm in the central to 12:00 region is new from prior imaging. BI-RADS category 0, incomplete. Further evaluation of this region with ultrasound is recommended. A member of the radiology department aravind joseph contact the patient with the updated recommendations. Overall assessment: BI-RADS Category Ass essment 0: Incomplete, Need additional imaging evaluation. Addendum Ends Performing Organization Address City/State/ZIP Code Phon e Number [facility] documented in this encounter Visit Diagnoses Not on filedocumented in this encounter Care Teams Computer Teacher Relationship Specialty Start Date End Date John Grande MD PCP - General 05/16/09 08/30/[address] [place] [phone] documented as of this encounter
--- OUTSIDE RECORDS SUMMARY | 2021-11-28 01:55 | XMS_ITS | Encounter Summary ---
:1965 Author Organization [facility] Address [address] [place] [address] Care Team Providers Name Role Phone John Grande MD Primary Care Provider Encounter Details Date Type Department Care Team Description 08/03/2002 Results Only [facility] - John Pham MD conversion [address] [place] [phone] (Wo rk) Social History Tobacco Use Types [...] Name Priority Date/Time Associated Diagnosis Comme nts LIPASE Routine 08/03/2002 14:40 Results for this EDT procedure are i n the results section. HEPATIC FUNCTION Routine 08/03/2002 14:40 Results for this PANEL (ALB,ALK EDT procedure are in PHOS,ALT,AST,DBIL,T the resu lts OT BRONWYN,TOT PROT) section. documented in this encounter Results (ABNORMAL) LIVER FUNCTION TESTS (08/03/2002 14:40 EDT) Albumin 3.8 3.0 - 5.5 g/dl [facility] Total Protein 6.8 6.0 - 8.5 g/dl [facility] Total Alkaline 63 38 - 126 U/L [facility] Phosphatase ALT 19 15 - 75 U/L [facility] AST 20 8 - 50 U/L [facility] Unconjugated Bilirubin 0.2 0.1 - 1.1 mg/dl [facility] Conjugated Bilirubin 0.0 0.0 - 0.3 mg/dl [facility] B Bilirubin, Total <0.1 (L) 0.2 - 1.3 mg/dl [facility] Specimen Performing Organization Address City/[facility] Code Phon e Number [facility] [address] [place] [address] SERVICES [facility] [address] [place] [address] LIPASE (08/03/2002 14:40 EDT) Pathologist Sig nature Lipase 89 0 - 210 U/L [facility] Specimen Performing Organization Address City/[facility]/ZIP Code Phon e Number [facility] [address] [place] [address] SERVICES [facility] [address] [place] [address] documented in this encounter Visit Diagnoses Not on filedocumented in this encounter Care Teams Sustainability Communicator Relationship Specialty Start Date End Date John Grande MD PCP - General 05/16/09 08/30/[address] [place] [address] [place] [address] documented as of this encounter
--- OUTSIDE RECORDS SUMMARY | 2021-11-28 01:55 | XMS_ITS | Encounter Summary ---
:1965 Author Organization [facility] Address [address] [place] [address] Care Team Providers Name Role Phone John Grande MD Primary Care Provider Elle Cates DO Primary Care Provider Mere Gonzales MD Primary Care Provider Ajay Castaneda PA-C Primary Care Provider Encounter Details Date Type Department Care Team Description 02/25/2005 Hospital Encounter [facility] - Gilda Rajput, [place] MD [address] [place] [address] [facility] [phone] Office Building, [address] [place] [address] (Wo rk) Social History Tobacco [...] on filedocumented in this encounter Care Teams Potato Seed Cutter Relationship Specialty Start Date End Date John Grande MD PCP - General 05/16/09 08/30/[address] [place] [phone] Elle Cates DO PCP - General 08/31/11 10/04/17 [address] [place] [address] Mere Gonzales MD PCP - General 10/05/17 07/30/20 [address] [place] [phone] Ajay Castaneda PA-C PCP - General Internal Medicine - Primary 07/31/20 [address] [place] [address] documented as of this encounter
--- OUTSIDE RECORDS SUMMARY | 2021-11-28 01:55 | XMS_ITS | Encounter Summary ---
:1965 Author Organization [facility] Address [address] [place] [address] Care Team Providers Name Role Phone John Grande MD Primary Care Provider Elle Cates DO Primary Care Provider Mere Gonzales MD Primary Care Provider Ajay Castaneda PA-C Primary Care Provider Encounter Details Date Type Department Care Team Description 09/11/2004 Hospital Encounter [facility] - Dominique Collins NP Other [phone] [place] [address], [place] [address] (Wo rk) Social History Tobacco Use Types [...] on filedocumented in this encounter Care Teams Bias Machine Operator Relationship Specialty Start Date End Date John Grande MD PCP - General 05/16/09 08/30/[address] [place] [address]. [place] [phone] Elle Cates DO PCP - General 08/31/11 10/04/17 [address] [place] [address] Mere Gonzales MD PCP - General 10/05/17 07/30/20 [address] [place] [address] Ajay Castaneda PA-C PCP - General Internal Medicine - Primary 07/31/20 [address] [place] [address] documented as of this encounter
--- OUTSIDE RECORDS SUMMARY | 2021-11-28 01:55 | XMS_ITS | Encounter Summary ---
:1965 Author Organization [facility] Address [address] [place] [address] Care Team Providers Name Role Phone John Grande MD Primary Care Provider Elle Cates DO Primary Care Provider Mere Gonzales MD Primary Care Provider Ajay Castaneda PA-C Primary Care Provider Encounter Details Date Type Department Care Team Description 10/06/2004 Hospital Encounter [facility]- Jessica Mejia PA [address] [place] [address] [place] [address] (Wo rk) Social History Tobacco Use Types [...] Name Priority Date/Time Associated Diagnosis Comme nts COMPLETE BLOOD Routine 10/06/2004 12:15 Results f or this COUNT EDT procedure are i n the results section. GLUCOSE, SERUM Routine 10/06/2004 12:15 Results f or this EDT procedure are i n the results section. HEPATIC FUNCTION Routine 10/06/2004 12:15 Results for this PANEL (ALB,ALK EDT procedure are in PHOS,ALT,AST,DBIL,T the resu lts OT BRONWYN,TOT PROT) section. LIPID PROFILE Routine 10/06/2004 12:15 Results fo r this (INCLUDES EDT procedure are i n CHOLESTEROL, the results TRIGLYCERIDES, HDL, section. LDL) documented in this encounter Results GLUCOSE, SERUM (10/06/2004 12:15 EDT) Glucose, Serum 76 70 - 110 mg/dl [facility] Comment: 2DOC [facility] [place], [place] Specimen Performing Organization Address City/State/ZIP Code Phon e Number [facility] [address] [place] [address] SERVICES [facility] [address] [place] [address] LIPID PROFILE (INCLUDES CHOLESTEROL, TRIGLYCERIDES, HDL, LDL) (10/06/2004 12:15 EDT) Cholesterol 201 mg/dl [facility] Comment: Desirable:<200 Borderline:200-239 High Risk:>ek=[id number] 2DOC Triglycerides 79Comment: 2DOC 35 - 160 mg/dl [facility] HDL 59 mg/dl [facility] Comment: Highly Desirable:>60 Desirable:35-60 High Risk:<35 LDL, Calculated 126 mg/dl [facility] Comment: Desirable:<130 Borderline:130-159 High Risk:>ov=[id number] Chol/HDL Ratio 3.4 [facility] Fasting? Yes [facility] Performed at [facility], [place], [place] Specimen Performing Organization Address [facility] Phon e Number [facility] [address] [place] [address] SERVICES [facility] [address] [place] [address] LIVER FUNCTION TESTS (10/06/2004 12:15 EDT) Albumin 4.2Comment: 2DOC 3.4 - 4.9 [facility] g/dl LAB Total Protein 8.0Comment: 2DOC 6.5 - 8.3 [facility] g/dl LAB Total Alkaline 68Comment: 2DOC 38 - 126 U/L [facility] Phosphatase LAB ALT 16Comment: 2DOC 9 - 52 U/L [facility] AST 22Comment: 2DOC 15 - 46 U/L [facility] Unconjugated 0.4Comment: 2DOC 0.1 - 1.1 [facility] Bilirubin mg/dl LAB Conjugated Bilirubin 0.0Comment: 2DOC 0.0 - 0.3 [facility] mg/dl LAB Bilirubin, Total 0.5 0.2 - 1.3 [facility] Comment: mg/dl LAB 2DOC Performed at [facility], [place], [place] Specimen Performing Organization Address [facility] Phon e Number [facility] [address] [place] [address] SERVICES [facility] [address] [place] [address] (ABNORMAL) HEMAGRAM (10/06/2004 12:15 EDT) Pathologist Sig nature WBC 4.60 4.0 - 12.4 [facility] K/cmm RBC 4.56 3.86 - 5.04 [facility] M/cmm Hemoglobin 14.2 11.6 - 15.2 [facility] gm/dl HCT 42.7 34.9 - 44.4 % [facility] MCV 94 81 - 98 fl [facility] MCH 31.2 26.7 - 33.3 pg [facility] MCHC 33.3 32.1 - 35.9 [facility] gm/dl PLT 389 (H) 141 - 320 K/cmm [facility] RDW-CV 12.1Comment: 11.7 - 14.6 % [facility] Performed at [place], [place] Specimen Performing Organization Address City/State/ZIP Code Phon e Number [facility] [address] [place] [address] SERVICES [facility] [address] [place] [address] documented in this encounter Visit Diagnoses Not on filedocumented in this encounter Care Teams Asbestos Siding Mechanic Relationship Specialty Start Date End Date John Grande MD PCP - General 05/16/09 08/30/[address] [place] [address]. [place] [address] Elle Cates DO PCP - General 08/31/11 10/04/17 [address] [place], [place] [phone] Mere Gonzales MD PCP - General 10/05/17 07/30/20 [address] [place] [address] Ajay Castaneda PA-C PCP - General Internal Medicine - Primary 07/31/20 [address] [place] [address] documented as of this encounter
--- OUTSIDE RECORDS SUMMARY | 2021-11-28 01:55 | XMS_ITS | Encounter Summary ---
:1965 Author Organization [facility] Address [address] [place] [address] Care Team Providers Name Role Phone John Grande MD Primary Care Provider Elle Cates DO Primary Care Provider Mere Gonzales MD Primary Care Provider Ajay Castaneda PA-C Primary Care Provider Encounter Details Date Type Department Care Team Description 08/29/2004 Hospital Encounter [facility]- Jessica Mejia PA [address] [place] [address] [place] [address] (Wo rk) Social History Tobacco Use Types [...] on filedocumented in this encounter Care Teams Digital Media Buyer Relationship Specialty Start Date End Date John Grande MD PCP - General 05/16/09 08/30/[address] [place] [address]. [place] [phone] Elle Cates DO PCP - General 08/31/11 10/04/17 [address] [place] [address] Mere Gonzales MD PCP - General 10/05/17 07/30/20 [address] [place] [address] Ajay Castaneda PA-C PCP - General Internal Medicine - Primary 07/31/20 [address] [place] [address] documented as of this encounter
--- OUTSIDE RECORDS SUMMARY | 2021-11-28 01:55 | XMS_ITS | Encounter Summary ---
:1965 Author Organization [facility] Address [address] [place] [address] Care Team Providers Name Role Phone John Grande MD Primary Care Provider Encounter Details Date Type Department Care Team Description 04/09/2006 Results Only [facility] - Mara Diaz MD [facility] [address] [place] [address] [place], [place] [address] [phone] Social History Tobacco Use Types Packs/Day Years [...] Date/Time Associated Diagnosis Comme nts CYTOPATHOLOGY Routine 04/09/2006 0:00 EST Results for this procedure are i n the results section . documented in this encounter Results CYTOPATHOLOGY (04/09/2006 0:00 EST) Pathology Report: CYTOPATHOLOGY REPORT [facility] Reports generated via electronic interface contain christiano ginal data; however they are lacking the format of the original re port. Caution should be taken when reading/interpreting unfo rmatted reports. Name: ? CLIFTON IBARRA ? Accession #: ? [id number] : ? 1965 (Age: 41) ??F ?Collect Date: ? 03/25 Location: ? [facility] ? Receive Date : ? 04/12/2006 Provider: ?MARA STAFFORD MD Copy to: ? Specimen/Source: ? ThinPrep Pap Test, Cervix, processed on [employer] ThinPrep Imaging System, with manual evaluation Last Menstrual Period: ? 03/12/06 Other: ? HPVA - HPV testing requested if ASC-US on the current ThinPrep Pap test. ? SPECIMEN ADEQUACY ? Satisfactory for Evaluation - transformation zone component present GENERAL CATEGORIZATION ? Negative for Intraepithelial Lesion or Malignan cy ? Document reviewed and electronically signed by: ? JUAN PABLO Cole(ASCP) ? Report Date: ??04/13/2006 11:46 End of Report Specimen Performing Organization Address City/State/ZIP Code Phon e Number [facility] [address] [place] [address] SERVICES [facility] [address] [place] [address] documented in this encounter Visit Diagnoses Not on filedocumented in this encounter Care Teams Principal Gifts Officer Relationship Specialty Start Date End Date John Grande MD PCP - General 05/16/09 08/30/[address] [place] [address] [place] [address] documented as of this encounter
--- OUTSIDE RECORDS SUMMARY | 2021-11-28 01:55 | XMS_ITS | Encounter Summary ---
:1965 Author Organization [facility] Address [address] [place] [address] Care Team Providers Name Role Phone John Grande MD Primary Care Provider Encounter Details Date Type Department Care Team Description 07/28/2010 Hospital Encounter [facility] - S Diana Goodrich i, MD [address] [place] [address] [place] Fracisco Portillo MD [address] [address] [address] [place], [place] [address] Social History Tobacco Use Types Packs/Day Years [...] on filedocumented in this encounter Care Teams General Accounting Clerk Relationship Specialty Start Date End Date John Grande MD PCP - General 05/16/09 08/30/11 [address] [place] [address] documented as of this encounter
--- OUTSIDE RECORDS SUMMARY | 2021-11-28 01:55 | XMS_ITS | Encounter Summary ---
:1965 Author Organization [facility] Address [address] [place] [address] Care Team Providers Name Role Phone John Grande MD Primary Care Provider Encounter Details Date Type Department Care Team Description 11/26/2006 Results Only [facility] - John Pham MD conversion [address] [place] [phone] (Wo rk) Social History Tobacco Use Types [...] Name Priority Date/Time Associated Diagnosis Comme nts TSH Routine 11/26/2006 15:20 EDT Results for this procedure are i n the results section . documented in this encounter Results TSH (11/26/2006 15:20 EDT) Pathologist Sig nature TSH 0.73 0.35 - 5.00 uIU/mL [facility] Specimen Performing Organization Address City/State/ZIP Code Phon e Number [facility] [address] [place] [address] SERVICES [facility] [address] [place] [address] documented in this encounter Visit Diagnoses Not on filedocumented in this encounter Care Teams Strip Cutting Machine Operator Relationship Specialty Start Date End Date John Grande MD PCP - General 05/16/09 08/30/[address] [place], [place] [address] [phone] documented as of this encounter
--- OUTSIDE RECORDS SUMMARY | 2021-11-28 01:55 | XMS_ITS | Encounter Summary ---
:1965 Author Organization [facility] Address [address] [place] [address] Care Team Providers Name Role Phone John Grande MD Primary Care Provider Encounter Details Date Type Department Care Team Description 08/03/2011 Results Only [facility]- Diana Mena PRISM MD [phone] [place] [address] Social History Tobacco Use Types Packs/Day Years [...] on filedocumented in this encounter Care Teams Nuclear Medicine Medical Director Relationship Specialty Start Date End Date John Grande MD PCP - General 05/16/09 08/30/[address] [place] [address] [place] [address] documented as of this encounter
--- OUTSIDE RECORDS SUMMARY | 2021-11-28 01:55 | XMS_ITS | Encounter Summary ---
:[address] [facility] Address [address] [place] [address] Care Team Providers Name Role Phone John Grande MD Primary Care Provider Elle Cates DO Primary Care Provider Mere Gonzales MD Primary Care Provider Ajay Castaneda PA-C Primary Care Provider Encounter Details Date Type Department Care Team Description 05/12/2001 Hospital Encounter [facility] - Hilary Link MD [address] [place] [address] Other Unknown, ProviderMD [address] [place] [address] Social History Tobacco Use Types Packs/Day Years [...] Date/Time Associated Diagnosis Comme nts CYTOPATHOLOGY Routine 05/12/2001 0:00 EST Results for this procedure are i n the results section . documented in this encounter Results CYTOPATHOLOGY (05/12/2001 0:00 EST) Pathology Report: CYTOPATHOLOGY REPORT [facility] Reports generated via electronic interface contain christiano ginal data; however they are lacking the format of the original re port. Caution should be taken when reading/interpreting unfo rmatted reports. Name: ? CLIFTON IBARRA ? Accession #: ? [id number] : ? 1965 (Age: 36) ??F ?Collect Date: ? 04/23 Location: ? [facility] ? Receive Date : ? 05/13/2001 Provider: ?HILARY LINK MD Copy to: ? Specimen/Source: ?ThinPrep Pap Test, Cervix/ Endocervix Last Menstrual Period: ? 04/20/01 Other: ? DHPV - HPV testing requested if ASCUS/VINAYAK on the [facility] ent ThinPrep Pap test. ? SPECIMEN ADEQUACY ? Satisfactory for Evaluation - transformation zone component present GENERAL CATEGORIZATION ? Negative for Intraepithelial Lesion or Malignan cy ? Document reviewed and electronically signed by: ? Silvina James, [place](ASCP) ? Report Date: ??05/18/2001 11:05 End of Report Specimen Performing Organization Address City/State/ZIP Code Phon e Number [facility] [address] [place] [address] SERVICES [facility] [address] [place] [address] documented in this encounter Visit Diagnoses Not on filedocumented in this encounter Care Teams Supervisor Laboratory Relationship Specialty Start Date End Date John Grande MD PCP - General 05/16/09 08/30/[address] [place] [address]. [place] [phone] Elle Cates DO PCP - General 08/31/11 10/04/17 [address] [place], [place] [phone] Mere Gonzales MD PCP - General 10/05/17 07/30/20 [address] [place] [address] Ajay Castaneda PA-C PCP - General Internal Medicine - Primary 07/31/20 [address] [place] [address] documented as of this encounter
--- OUTSIDE RECORDS SUMMARY | 2021-11-28 01:55 | XMS_ITS | Encounter Summary ---
:1965 Author Organization [facility] Address [address] [place] [address] Care Team Providers Name Role Phone John Grande MD Primary Care Provider Encounter Details Date Type Department Care Team Description 09/11/2004 Results Only [facility] Rehana Snow, TANK CAR RECONDITIONER Women's Services - [address], [address] [place], [place] [address] [place] [address] [phone] (Wo rk) Social History Tobacco Use [...] Date/Time Associated Diagnosis Comme nts CYTOPATHOLOGY Routine 09/11/2004 0:00 EDT Results for this procedure are i n the results section . documented in this encounter Results CYTOPATHOLOGY (09/11/2004 0:00 EDT) Pathology Report: CYTOPATHOLOGY REPORT [facility] Reports generated via electronic interface contain christiano ginal data; however they are lacking the format of the original re port. Caution should be taken when reading/interpreting unfo rmatted reports. Name: ? CLIFTON IBARRA ? Accession #: ? [id number] : ? 1965 (Age: 39) ??F ?Collect Date: ? 08/23 Location: ? [facility] ? Receive Date : ? 09/11/2004 Provider: ?JESSICA SNOW TANK CAR RECONDITIONER Copy to: ? Specimen/Source: ? ThinPrep Pap Test, Cervix/Endocervix, processed on [employer] ThinPrep Imaging System, with manual evaluation Last Menstrual Period: ? 09/02/04 Other: ? HPVA - HPV testing requested if ASC-US on the current ThinPrep Pap test. ? SPECIMEN ADEQUACY ? Satisfactory for Evaluation - transformation zone component present GENERAL CATEGORIZATION ? Negative for Intraepithelial Lesion or Malignan cy INTERPRETATION ? Fungal organisms pres ent morphologically consistent with Alina species. ? Document reviewed and electronically signed by: ? JUAN PABLO Maria(ASCP) ? Report Date: ??09/18/2004 15:49 End of Report Specimen Performing Organization Address City/State/ZIP Code Phon e Number [facility] [address] [place] [address] SERVICES [facility] [address] [place] [address] documented in this encounter Visit Diagnoses Not on filedocumented in this encounter Care Teams Load Haul Dump Operator Relationship Specialty Start Date End Date John Grande MD PCP - General 05/16/09 08/30/11 [address] [place] [address] documented as of this encounter
--- OUTSIDE RECORDS SUMMARY | 2021-11-28 01:55 | XMS_ITS | Encounter Summary ---
:1965 Author Organization [facility] [place] [address] Care Team Providers Name Role Phone Mere Gonzales MD Primary Care Provider Encounter Details Date Type Department Care Team Description 08/15/2018 Telephone [place] [facility] [place] [phone] Social History Tobacco Use Types Packs/Day Years Used Date Never Smoker Smokeless Tobacco: Never Used Sex Assigned at Date Recorded Not on file documented as of this encounter Miscellaneous Notes Telephone Encounter - Dean Mosher RN - 08/15/2018 3:07 PM EDT ----- Message from Annette Dukes RN sent at 08/15/2018 1:07 PM EDT ----- Regarding: FW: MRI result ----- Message ----- From: Sarita Viveros DO Sent: 08/15/2018 12:08 PM To: Annette Dukes RN Subject: MRI result P tof Dr Beth. MRI showed tendinopathy which appears mechanical in nature of the tendons from the gluteal muscles, no evidence of inflammatory arthritis. Her uterus showed a lesion on which which is likely fibroids, but further evlauation is warranted. Please have her make a follow up with her mortician helper as a pelvic exam is recommended. Please have her bring the read with her to the mortician helper. I will release it to her today but did not want her toworry. ----- Message ----- From: Department, Radiology Sent: 08/15/2018 9:11 AM To: Juanito Beth MD I spoke with Heike today and she states that she is aware of MRI results and states that she is aware of potential Fibroid because she had a Kidney stone in the past and it was discovered then. I advised to talk with BUILDING ENGINEER provider in regards to size for comparison and follow up in regards to a planof care moving forward. Advised no Inflammatory process noted. Gabrielshe will call BUILDING ENGINEER/PCP. I faxed results to PCP. Heike has a copy for BUILDING ENGINEER provider. documented in this encounter Plan of Treatment Not on filedocumented as of this encounter Visit Diagnoses Not on filedocumented in this encounter Care Teams Cloth Piecer Relationship Specialty Start Date End Date Mere Gonzales MD PCP - General Internal Medicine 11/02/17 [address] [place] [phone] documented as of this encounter
--- OUTSIDE RECORDS SUMMARY | 2021-11-28 01:55 | XMS_ITS | Encounter Summary ---
:1965 Author Organization [facility] Address [address] [place] [address] Care Team Providers Name Role Phone Elle Cates DO Primary Care Provider Encounter Details Date Type Department Care Team Description 09/02/2011 Results Only Imaging [facility]- Diana Mena PRISM MD [phone] [address] [place] [address] Social History Tobacco Use Types Packs/Day Years [...] on filedocumented in this encounter Care Teams Order Entry Specialist Relationship Specialty Start Date End Date Elle Cates DO PCP - General 08/31/11 10/04/17 [address] [place] [address] documented as of this encounter
--- OUTSIDE RECORDS SUMMARY | 2021-11-28 01:55 | XMS_ITS | Encounter Summary ---
:[address] [facility] Address [address] [place] [address] Care Team Providers Name Role Phone John Grande MD Primary Care Provider Encounter Details Date Type Department Care Team Description 07/28/2010 Results Only [facility] Mara Mena MD Laboratory Services - [address] [address] [address] [place] [address] [phone] Social History Tobacco Use Types Packs/Day Years [...] Diagnosis Comme nts PAP TEST- RESULT Routine 07/28/2010 0:00 EDT Resu lts for this ONLY procedure are i n the results section. documented in this encounter Results PAP TEST- RESULT ONLY (07/28/2010 0:00 EDT) Pathology Report: CYTOPATHOLOGY REPORT ? [facility] Reports generated via electr onic interface contain original data; ? however they are lacking the format of the original report. ? Caution should be taken when reading/interpreting unformatted reports. ? Name: ? SHANEL, EVANS LE L ? Accession #: ? [id number] ? : ? 1965 (Age: 45) ??F ?Collect Date: ? 07/28/2010 ? Location: ? [facility] ? R eceive Date: ? 07/29/2010 ? Provider: MARA VISELLI MD ? Copy to: ? Final Report ? SPECIMEN ADEQUACY ? Satisfactory for Eval uation ? - transformation zone compon ent present ? GENERAL CATEGORIZATION ? Negative for Intraepi thelial Lesion or Malignancy ? INTERPRETATION ? Reactive cellular avel nges associated with inflammation present (includes ?? repair). ? Last Menstural Period: 05/16 /11 ? Specimen/Source: ??Pap Test, Cervix, ThinPrep Imaging System with manual ? evaluation ? Document reviewed and electr onically signed by: ? KT MOUNT MD ? Report ??Date: 06/15/ 2011 11:48 ? HPV with Pap Test ? Date Ordered: ? 0 08/06/2010 ? Status: ?? Signed Out ?Date Complete: ? 08/08/2010 ? By: ??System Interface ? Date Reported: ? 08/08/2010 ? Interpretation ? RESULT: Negative for HPV typ es 16, 18, 31, 33, 35, 39, 45, 51, 52, ? 56, 58, 59, and 68. ? Comments ? Document reviewed and electr onically signed by: ? System Interface ? Report date: 08/08/ 11 ? By the signature above, the attending physician certifies that he/she has ? personally conducted a gross and/or microscopic examination of the described ? specimens and rendered or co nfirmed the above diagnosis. ? End of Report ? Specimen Performing Organization Address City/[facility]/ZIP Code Phon e Number [facility] [address] [place] [address] SERVICES [facility] [address] [place] [address] documented in this encounter Visit Diagnoses Not on filedocumented in this encounter Care Teams Shrimp Trawler Captain Relationship Specialty Start Date End Date John Grande MD PCP - General 05/16/09 08/30/[address] [place] [address] [place] [phone] documented as of this encounter
--- OUTSIDE RECORDS SUMMARY | 2021-11-28 01:55 | XMS_ITS | Encounter Summary ---
:1965 Author Organization [facility] Address [address] [place] [address] Care Team Providers Name Role Phone Unavailable Primary Care Provider Unavailable Encounter Details Date Type Department Care Team Description 07/25/2002 Hospital Encounter [facility]- Jillian Cohn MD [address] [place] [address] [place] [phone] (Wo rk) Social History Tobacco Use Types [...] Name Priority Date/Time Associated Diagnosis Comme nts SURGICAL PATHOLOGY Routine 07/25/2002 0:00 EDT Re sults for this procedure are i n the results section. documented in this encounter Results SURGICAL PATHOLOGY (07/25/2002 0:00 EDT) Pathology Report: SURGICAL PATHOLOGY REPORT [facility] Reports generated via electronic interface contain christiano ginal data; LAB however they are lacking the format of the original re port. Caution should be taken when reading/interpreting unfo rmatted reports. Name: ? ANDREW IBARRA ? Accession #: ? [id number] ? : ? 1965 (Age: 37) ??F ? Collect Date: ? 07/25/2002 ? Location: ? [facility] ? Receive Date: ? 003 ? Provider: KEREN COHN MD Copy to: NUVIA SCHWARZ MD ? Final Pathologic Diagnosis: ? Esophagus, distal and gastroesophageal junction , biopsies: 1. ?Squamous mu cosa with basal cell hyperplasia, reactive epithelial changes and intraepithelial eosinophils, consistent wi th reflux esophagitis. 2. ?Scant foveo lar-type glandular mucosa with mild chronic inflammation. 3. ?No intestinal metaplasia/Muse' s m ucosa identified. Document reviewed and electronically signed by: ZAN PITTS MD Report ??Date: 07/26/2002 16:08 By the signature above, the attending physician certif ies that he/she has personally conducted a gross and/or microscopic examin ation of the described specimens and rendered or confirmed the above diagnosi s. Specimen(s) Received: ? Distal esophagus & GE jct Clinical History: ? GERD Sx, irregular Z-line, R/O intestinal metap lasia Gross Description: ? Received in Hollande' s fixative labelled João and distal esophagus and GE junction are three t an soft tissue biopsies ranging from 0.1 x 0.1 x 0.1 cm to 0.3 x 0.2 x 0.1 cm. ?? Entirely submitted in one cassette. ??(Kamilla Sharif)/[facility] End of Report Specimen Performing Organization Address City/State/ZIP Code Phon e Number [facility] [address] [place] [address] SERVICES [facility] [address] [place] [phone] documented in this encounter Visit Diagnoses Not on filedocumented in this encounter
--- OUTSIDE RECORDS SUMMARY | 2021-11-28 01:55 | XMS_ITS | Encounter Summary ---
:1965 Author Organization [facility] Address [address] [place] [address] Care Team Providers Name Role Phone Unavailable Primary Care Provider Unavailable Encounter Details Date Type Department Care Team Description 11/26/2006 Hospital Encounter [facility] - Jose Antonio Grande, [place] MD [address] [place] [id number] [place] [address] [place], [place] [phone] (Wo rk) Social History Tobacco Use Types [...] Name Priority Date/Time Associated Diagnosis Comme nts SACRUM COCCYX 2 OR 03/07/2007 15:43 Resul ts for this MORE VIEWS EST procedure are i n the results section. documented in this encounter Results SACRUM COCCYX 2 OR MORE VIEWS (03/07/2007 15:43 EST) Anatomical Region Laterality Modality Other Specimen Narrative [facility] - 08/13/2008 3: 24 EDT urgent incontinence Sacrum-coccyx 03/07/2007 History: Urgency incontinence A lateral fluoroscopic image of the sacr um demonstrates a surgical device projected perpendicularly across the lower sacrum. Procedure Note Guru Leonard MD - 08/13/2008 urgent incontinence Sacrum-coccyx 03/07/2007 History: Urgency incontinence A lateral fluoroscopic image of the sacr um demonstrates a surgical device projected perpendicularly across the lower sacrum. Performing Organization Address City/State/[facility] Code Phon e Number [facility] [address] [facility] [address] [facility] [address] [place], [place] [address] documented in this encounter Visit Diagnoses Not on filedocumented in this encounter
--- OUTSIDE RECORDS SUMMARY | 2021-11-28 01:55 | XMS_ITS | Encounter Summary ---
:1965 Author Organization [facility] Address [address] [place] [address] Care Team Providers Name Role Phone Unavailable Primary Care Provider Unavailable Encounter Details Date Type Department Care Team Description 04/25/2007 Hospital Encounter [facility] - Diana Mena, Other MD [address] [facility] [address] [place] [address] [place] [address] Social History Tobacco Use Types Packs/Day Years [...] Discharge Disposition Disposition Code Departure Means Destination Home-Health Care Svc documented in this encounter Plan of Treatment Not on filedocumented as of this encounter Visit Diagnoses Not on filedocumented in this encounter
--- OUTSIDE RECORDS SUMMARY | 2021-11-28 01:55 | XMS_ITS | Encounter Summary ---
:1965 Author Organization [facility] Address [address] [place] [address] Care Team Providers Name Role Phone Elle Cates DO Primary Care Provider Encounter Details Date Type Department Care Team Description 09/01/2011 Hospital Encounter [facility] Diana Mena, Perioperative Services - [address] [address] [phone] Social History Tobacco Use Types Packs/Day Years [...] Sign Reading Time Taken Comments Blood Pressure 117/69 09/01/2011 1045 EDT Pulse - - Temperature 36.9 ??C (98.4 ??F) 09/01/2011 1015 EDT Respiratory Rate 17 09/01/2011 1045 EDT Oxygen Saturation 100% 09/01/2011 1045 EDT Inhaled Oxygen Concentration - - Weight 60.8 kg (134 lb) 08/25/2011 1540 EDT Height 160 cm (5' 3) 08/25/2011 1540 EDT Body Mass Index 23.74 08/25/2011 1540 EDT documented in this encounter Discharge Instructions Diana Saucedo MD - 09/01/2011 Vicodin if needed. F/u in office 1-2 weeks. May remove dressing one week. documented in this encounter Medications at Time [...] Care documented in this encounter Progress Notes Shira Castillo RN - 09/01/2011 0943 EDT 0937 Admit to PACU, easily arousable, no complaints. Xochitl Leblanc RN - 08/25/2011 1559 EDT Heike Salguero has been instructed as follows regarding medication administration for the day of the scheduled procedure. Date of Surgery: 09/01/11 Instructions for Taking Medications Day of Surgery Medication Last Dose Hold DOS Take DOS buPROPion (WELLBUTRIN) 75 mg tablet Yes documented in this encounter H&P Notes BLOWER MECHANIC, MARY KATE 2 - 09/07/2011 0744 EDT Diana Burnette MD - 09/01/2011 0840 EDT The preoperative history and physical which was performed within 30 days of this procedure has been reviewed and the clinically appropriate elements of the physical examination havebeen repeated. There are no changes to the documented history and physical or if so such changes aredocumented below Diana Mena MD 09/01/2011 8:40 documented in this encounter Procedure Notes BLOWER MECHANIC, SCAN 2 - 09/07/2011 0744 EDTAssociated Order(s): ORDERS - SCANNED DMINISTRATOR, SCAN 2 - 09/07/2011 0744 EDTAssociated Order(s): IMPLANT RECORD - SCANNED DMINISTRATOR, SCAN 2 - 09/07/2011 0744 EDTAssociated Order(s): ECG REPORT - SCANNED Diana Burnette MD - 09/01/2011 0945 EDT Preop dx: Interstim Battery Postop dx: same Procedure: replacement of Interstim battery Surgeon: Trina Anes: local + sedation Findings: normal impedance new battery Foregin bodies: Interstim lead and battery Compl: none DispO: PACu documented in this encounter Nursing Notes BLOWER MECHANIC, SCAN 2 - 09/07/2011 0744 EDT documented in this encounter OR Notes OR PreOp - BLOWER MECHANIC, SCAN 2 - 09/07/2011 0744 EDT R Surgeon - Diana Mena MD - 09/01/2011 1125 EDT OPERATIVE REPORT SERVICE DATE: 09/01/2011 PREOPERATIVE DIAGNOSIS: Nonfunctioning InterStim battery. POSTOPERATIVE DIAGNOSIS: Nonfunctioning InterStim battery. PROCEDURE: Replacement of InterStim battery. SURGEON: Diana Mena MD BUSINESS OBJECTS ARCHITECT: None. ANESTHESIA: Sedation plus local. NARRATIVE: The patient was taken to the operating room where she was placed on the table in the prone position. Sedation was administered. The back was prepped with DuraPrep and she was draped in the usual fashion. The prior incision was infiltrated with a mixture of 1% lidocaine and 0.25% Marcaine. An incision was made. The InterStim battery was removed. The new battery was placed onto the lead. Thebattery was replaced in the subcutaneous pocket. The subcutaneous tissue was closed with interruptedsutures of 2-0 Vicryl. An impedance test was performed, which was normal. The skin was closed with arunning subcuticular 4-0 Vicryl and the dressing was applied. The patient tolerated the procedure well and was taken to the recovery room in good condition. Unless otherwise noted, there were no complications, no blood loss, no cultures obtained, no specimens removed, and no drains retained. Diana Mena MD 09 34 AM / Diana Mena MD mt Confirmation: [id number] Dictation ID: [id number] PreOp - BLOWER MECHANIC, SCAN 2 - 09/01/2011 0936 EDT nesthesia Procedure Notes - BLOWER MECHANIC, SCAN 2 - 09/01/2011 0931 EDT nesthesia Preprocedure Evaluation - BLOWER MECHANIC, SCAN 2 - 09/01/2011 0921 EDT nesthesia Preprocedure Evaluation - BLOWER MECHANIC, SCAN 2 - 09/01/2011 0904 EDT documented in this encounter Miscellaneous Notes Scanned Note-Null - BLOWER MECHANIC, SCAN 2 - 09/07/2011 0744 EDT canned Note- Null - BLOWER MECHANIC, SCAN 2 - 09/07/2011 0744 EDT nesthesia Post-Eval - Bernard Pepper MD - 09/01/2011 1048 EDT Post Anesthesia Evaluation Note Date of Service: 09/01/2011 Heike Salguero, a 46 y.o. year old female has received MAC today. She has been evaluated, assessed and discharged from anesthesia care with stable cardiorespiratory function and alert mental status. The last set of recorded vital signs and pain rating were reviewed: Temp: 36.9 ??C (98.4 ??F) (09/01/11 1015), Heart Rate: 72 BPM (09/01/11 1030), BP: 119/71 mmHg (09/01/11 1030), Resp: 19 (09/01/11 1030), SpO2: 100 % (09/01/11 1030),Numeric Pain Level (Scale 1-10): 3 Heike Salguero participated in this evaluation unless otherwise noted. Her pain, nausea and vomiting have been managed and her body temperature and fluid balance have been restored. Additional monitoring and assessment needs have been addressed. If present, any postoperative events are documentedbelow. Bernard Pepper MD 09/01/2011 10:48 nesthesia Post-Eval - Yahaira Gutierres - 09/01/2011 0939 EDT Post Anesthesia Evaluation Note Date of Service: 09/01/2011 Heike Salguero, a 46 y.o. year old female has received MAC today for her bladder interstim battery revision. She has been evaluated, assessed and discharged from anesthesia care with stable cardiorespiratory function and alert mental status. The last set of recorded vital signs and pain rating were reviewed: ,Numeric Pain Level (Scale 1-10): 0 Heike Salguero participated in this evaluation unless otherwise noted. Her pain, nausea and vomiting have been managed and her body temperature and fluid balance have been restored. Additional monitoring and assessment needs have been addressed. If present, any postoperative events are documentedbelow. YAHAIRA GUTIERRES MD 09/01/2011 9:39 documented in this encounter Plan of Treatment Not on filedocumented as of this encounter Procedures Procedure Name Priority Date/Time Associated Diagnosis Comme nts IMPLANT RECORD - 09/07/2011 7:44 EDT Resu lts for this SCANNED procedure are i n the results section. ECG REPORT - 09/07/2011 7:44 EDT Results for this SCANNED procedure are i n the results section. ORDERS - SCANNED 09/07/2011 7:44 EDT Resu lts for this procedure are i n the results section. documented in this encounter Results ORDERS - SCANNED (09/07/2011 7:44 EDT) Specimen Narrative This result has an attachment that is no t available. Transcriptions BLOWER MECHANIC, SCAN 2 - 09/07/2011 7:44 EDT IMPLANT RECORD - SCANNED (09/07/2011 7:44 EDT) Specimen Narrative This result has an attachment that is no t available. Transcriptions BLOWER MECHANIC, SCAN 2 - 09/07/2011 7:44 EDT ECG REPORT - SCANNED (09/07/2011 7:44 EDT) Specimen Narrative This result has an attachment that is no t available. Transcriptions BLOWER MECHANIC, SCAN 2 - 09/07/2011 7:44 EDT documented in this encounter Visit Diagnoses Not on filedocumented in this encounter Administered Medications Inactive Administered Medications - up to 3 most recent administrations Medication Order MAR Action Action Date Dose Rate Site hydrocodone-acetaminophen Given 09/01/2011 10:49 EDT 1 Tablet (LORTAB;VICODIN) 5-500 mg tablet 1 Tab 1 Tablet, oral, EVERY 6 HOURS PRN, Starting on Wed09/01/11 at 1046, Until Wed09/01/11 at 1316, Pain, Routine lactated ringers (LR) infusion New Bag 09/01/2011 7:42 EDT 25 mL/hr at 25 mL/hr, intravenous, CONTINUOUS, Starting on Wed09/01/11 at 0745, Until Wed09/01/11 at 1316, Routine, Pre-Op DOS Rx Approved documented in this encounter Historical Medications This list may reflect changes made after this encounter. Medication Sig Dispensed Refills Start Date End Date hydrOXYzine (ATARAX) 25 mg Take 25 mg by mouth 0 11/26/2017 tablet every evening. buPROPion (WELLBUTRIN) 75 Take 75 mg by mouth 0 03/23/2016 mg tablet 2 times daily. added in this encounter Active and Recently Administered Medications Times are shown in EDT. Continuous Medication Order 08/30/2011 08/31/2011 09/01/2011 lactated ringers (LR) infusion (CANCELED) 0742 (New Bag - Provider: Cassie Croft, GABY) at 25 mL/hr, Intravenous, CONTINUOUS, St arting Wed09/01/11 at 0745, Until Wed09/01/11 at 1316 PRN Medication Order 08/30/2011 08/31/2011 09/01/2011 hydrocodone-acetaminophen (LORTAB;VICODIN) 5-500 mg tablet 1 Tab (CANCELED) 1049 (Given - Provider: Abner Cleary, RN) 1 Tab, Oral, EVERY 6 HOURS PRN, Starting Wed09/01/11 at 1046, Until Wed09/01/11 at 1316, Pain documented in this encounter Orders Medications Ordered That Might Not Have Count Last Ord ered Date First Ordered Date Been Administered atropine 0.1 mg/mL 10 mL syringe 0.5 mg 1 09/01/19 12 diphenhydrAMINE (BENADRYL) injection 6.25 1 2011 mg fentanyl citrate (PF) 50 mcg/mL injection 1 2011 25-100 mcg hydrocodone-acetaminophen (LORTAB;VICODIN) 1 08/31 5-500 mg tablet HYDROmorphone (PF) (DILAUDID) 1 mg/mL 1 09/01/2011 injection 0.2-1 mg lactated ringers (LR) infusion 1 09/01/2011 midazolam (VERSED) injection 0.5-2 mg 1 09/01/2011 naloxone (NARCAN) injection 0.2 mg 1 09/01/2011 ondansetron (PF) (ZOFRAN) injection 2 mg 1 012 oxycodone-acetaminophen (PERCOCET) 5-325 1 012 mg per tablet 1-2 Tab Transfer Count Last Ordered Date First Ordered Date NOTIFY PPS PACU PATIENT DISCHARGE 09/01/2011 documented in this encounter Care Teams Endocrinology Physician Relationship Specialty Start Date End Date Elle Cates DO PCP - General 08/31/11 10/04/17 [address] [place] [address] documented as of this encounter
--- OUTSIDE RECORDS SUMMARY | 2021-11-28 01:55 | XMS_ITS | Encounter Summary ---
:1965 Author Organization [facility] Address [address] [place] [address] Care Team Providers Name Role Phone Elle Cates DO Primary Care Provider Encounter Details Date Type Department Care Team Description 03/10/2013 Abstract [facility] General Darin Delacruz do, MD Surgery [facility] [address] [address] [address], [place] [address] (Wo rk) Social History [...] Sig Dispensed Refills Start Date End Date dextroamphetamine-amphe Take 15 mg by mouth 0 10/11/2017 tamine (ADDERALL) 15 mg daily. tablet clobetasol (TEMOVATE) Apply topically 2 0 01/24/2018 0.05 % ointment times daily. added in this encounter Care Teams Associate Director Of Biostatistics Relationship Specialty Start Date End Date Elle Cates DO PCP - General 08/31/11 10/04/[address] [place] [address] documented as of this encounter
--- OUTSIDE RECORDS SUMMARY | 2021-11-28 01:55 | XMS_ITS | Encounter Summary ---
:1965 Author Organization [facility] Address [address] [place] [address] Care Team Providers Name Role Phone John Grande MD Primary Care Provider Encounter Details Date Type Department Care Team Description 08/05/2011 Results Only Imaging [facility]- Diana Mena, DEANA HERNÁNDEZ [phone] [place] [address] Social History Tobacco Use Types Packs/Day Years [...] Priority Date/Time Associated Comments Diagnosis RAD US RAINA BREAST 08/31/2011 15:00 Resul ts for this UNILATERAL - ONE EDT procedure a re in BREAST the results section. documented in this encounter Results RAD US RAINA BREAST UNILATERAL - ONE BREAST (08/31/2011 15:00 EDT) Anatomical Region Laterality Modality Other Specimen [...] The p atient had prior mammography at [facility] and prior studie s are not [...] prior mammography to be obtained fr om [facility] is recommended. If this finding is a change from prior imaging, further evaluation with ultrasound would be jeremias mmended. Results and recommendations were discuss ed with the patient by the robotics mechanic at the time of the exam. Thi [...] The p atient had prior mammography at [facility] and prior studie s are not [...] with prior mammography to be obtained fr [facility] is recommended. If this finding is a change from prior imaging, further evaluation with ultrasound would be jeremias mmended. Results and recommendations were discuss ed with the patient by the robotics mechanic at the time of the exam. Thi [...] Organization Address City/State/ZIP Code Phon e Number [facility] documented in this encounter Visit Diagnoses Not on filedocumented in this encounter Care Teams Medical Receptionist Assistant Relationship Specialty Start Date End Date John Grande MD PCP - General 05/16/09 08/30/[address] [place] [address] documented as of this encounter
--- OUTSIDE RECORDS SUMMARY | 2021-11-28 01:55 | XMS_ITS | Encounter Summary ---
:1965 Author Organization [facility] Address [address] [place] [address] Care Team Providers Name Role Phone Unavailable Primary Care Provider Unavailable Encounter Details Date Type Department Care Team Description 03/07/2007 Hospital Encounter [facility] Diana Mena, Perioperative Services - [address] [address] [phone] Social History Tobacco Use Types Packs/Day Years [...] or Self Care documented in this encounter OR Notes OR Surgeon - Diana Mena MD - 03/07/2007 0000 EST PROCEDURE REPORT PT TYPE: OPPROC SERVICE DATE: 03/07/2007 SURGEON: Dalton Scott MDAnne L Viselli, MD TEACHER [place]: None. PREOPERATIVE DIAGNOSIS Overactive bladder. POSTOPERATIVE DIAGNOSIS Overactive bladder. PROCEDURE InterStim part one. ANESTHESIA IV sedation plus local. NARRATIVE The patient was taken to the operating room where she was placed on the operating room table in the prone position. IV sedation was administered. The back was prepped and draped in the usual fashion. Bony landmarks were identified using fluoroscopy. The spinal needle was first inserted to the left S4 sacral foramen and was identified by big toe flexion. A second spinal needle was placed into the leftS3 foramen; however a marcello was not achieved, so the decision was made to go to the patientright side. On the first attempt, the spinal needle was easily inserted into the right S3 foramen obtaining a great toe flexion and marcello response at all four electrodes. The guidewire was placed through the spinal needle followed by the dilator. At this point, the guidewire was removed leaving the dilator in place. The lead was placed through the dilator and again identified by fluoroscopy to be in the correct placement. The dilator was backed off, thus deploying the tines. Again, testing confirmed a good response at all four electrodes increasing with progressive electrodes. The greatest response beingat electrode four. A subcutaneous pocket was made over the right sacroiliac area. A tunneler was used to bring the lead through into the pocket. The lead was then connected to the extension cable. The boot was placed over the connection. The tunneler was then used to exit the extension cable approximately 3 cm above the previously made incision. The connector site was copiously irrigated with bacitracin solution. The subcutaneous tissue was closed with three 3-0 Vicryl. The skin was closed with a running subcuticular 4-0 Vicryl. A dressing was applied. The extension cable is to be connected, programed in the PACU. Signed by Diana Mena MD 03/17/2007 11:01 Diana Mena MD - Diana Mena MD P - jm Job ID: [id number] Document ID: [id number] cc: MD Diana Stanley MD documented in this encounter Plan of Treatment Not on filedocumented as of this encounter Procedures Procedure Name Priority Date/Time Associated Comments Diagnosis GLUCOSE, GLUCOMETER Routine 03/07/2007 13:22 Resu lts for this EST procedure are i n the results section. documented in this encounter Results GLUCOSE, GLUCOMETER (03/07/2007 13:22 EST) Glucose, 80 70 - 100 SAFIA NUNEZ Fingerstick mg/dl LAB [employer] [place] [id number] SAFIA NUNEZ Test Performed by Nursing Services LAB Specimen Performing Organization Address City/State/ZIP Code Phon e Number [facility] [address] [place] [address] SERVICES [facility] [address] [place] [address] documented in this encounter Visit Diagnoses Not on filedocumented in this encounter
--- OUTSIDE RECORDS SUMMARY | 2021-11-28 01:55 | XMS_ITS | Encounter Summary ---
:1965 Author Organization [facility] Address [address] [address] Care Team Providers Name Role Phone Mere Gonzales MD Primary Care Provider Reason for Referral Consultation (Routine) - Authorized Specialty Diagnoses / Procedures Referred By Contact Refer red To Contact [facility] Diagnoses Mass of soft tissue Chronic low back pain, unspecified back pain laterality, unspecified whether sciatica present Other chronic pain Spine- Low back pain/ MRI 2019 in [facility]/ ? updated MRI Ajay Castaneda PA [facility] [address] Spine [facility] enter [address] [place] [address] Phone: Fax: Referral ID Status Reason Start Expiration Visits Visits Date Date Requested Authorized [id number] Authorized Evaluate and 10/02/2021 10/02/2022 3 3 Treat Encounter Details Date Type Department Care Team Description 10/02/2021 Transcribe Orders eDH Incoming Ajay Castaneda of s oft tissue; Referrals YAZAN Shabazz Chronic low back pain, unspecified back pain laterality, unspecified whether sciatica present; [phone] [place] [address] Social History Tobacco Use Types Packs/Day Years Used Date Never Smoker Smokeless Tobacco: Never Used Sex Assigned at Date Recorded Not on file documented as of this encounter Plan of Treatment Scheduled Referrals Name Type Priority Associated Diagnoses Order S chedule Referral to Pain Outpatient Referral Routine Mass of sof t tissue Ordered: and [facility] Chronic low back 022 (Internal only) pain, unspecified back pain laterality, unspecified whether sciatica present Other chronic pain documented as of this encounter Visit Diagnoses Diagnosis Mass of soft tissue Disorders of soft tissue, unspecified Chronic low back pain, unspecified back pain laterality, unspecified whether sciatica present Other chronic pain documented in this encounter Care Teams Dynamometer Repairer Relationship Specialty Start Date End Date Mere Gonzales MD PCP - General Internal Medicine 11/02/17 [address] [place] [address] documented as of this encounter
--- OUTSIDE RECORDS SUMMARY | 2021-11-28 01:55 | XMS_ITS | Encounter Summary ---
:1965 Author Organization [facility] Address [address] [place] [address] Care Team Providers Name Role Phone John Grande MD Primary Care Provider Encounter Details Date Type Department Care Team Description 02/25/2005 Results Only [facility] Pelvic Gilda Christiansen, Medicine and Reconstructive MD Surgery - Medical Office [address] [place] [address] Office Building, [address] [place] [address] [address] [place] [address] [place], [place] [phone] (Wo rk) Social History Tobacco Use Types [...] Associated Diagnosis Comme nts SURGICAL PATHOLOGY Routine 02/25/2005 0:00 EST Re sults for this procedure are i n the results section. documented in this encounter Results SURGICAL PATHOLOGY (02/25/2005 0:00 EST) Pathology SURGICAL PATHOLOGY REPORT SAFIA NUNEZ Report: Reports generated via electronic interface contain christiano ginal data; LAB however they are lacking the format of the original re port. Caution should be taken when reading/interpreting unfo rmatted reports. Name: ? ANDREW IBARRA ? Accession #: ? [id number] ? : ? 1965 (Age: 39) ??F ? Collect Date: ? 02/25/2005 ? Location: ? [facility] ? Receive Date: ? 006 ? Provider: GILDA CHRISTIANSEN MD Copy to: ? Final Pathologic Diagnosis: ? Skin of perianal region, punch biopsy: - Lichen simplex chronicus. ??See comment. Comment: ? There is no interface alteration to suggest a d iagnosis of lichen sclerosus. (Dr. Vivar)/[facility] Microscopic Description: ? Sections consist of a bisected biopsy of skin to the mid reticular dermis. There is marked orthohyperke ratosis with foci of parakeratosis. ??The epidermis shows prominent irregular hyperplasia wi th elongate and thickened rete ridges. The keratinocytes show reactive changes and the granular layer is accentuated. The collagen bundles of the superficial dermis are thi ck and extend into the dermal papillae where they are associated with a react carmelina vascular pattern. There is a mild lymphomononuclear infiltrate. ??(Dr. Mo benoit)/[facility] Document reviewed and electronically signed by: TRES VIVAR MD Report ??Date: 02/27/2005 15:32 By the signature above, the attending physician certif ies that he/she has personally conducted a gross and/or microscopic examin ation of the described specimens and rendered or confirmed the above diagnosi s. Specimen(s) Received: ? 4.0 mm punch of perianal tissue Clinical History: ? Perianal pruritus x 10 yrs, thick, white skin i n perianal area, excoriations; LS ?, LSC ?; clinical diagnosis code: 69 8.0 Gross Description: ? Received in formalin labelled João is a punch biopsy of white skin measuring 0.4 cm in diameter by 0.2 cm in thickness. ??The specimen is bisected and is entirely submitted in one cassette. ??(Dr. Unruly reid-)/[facility] End of Report Specimen Performing Organization Address City/State/ZIP Code Phon e Number [facility] [address] [place] [address] SERVICES [facility] [address] [place] [address] documented in this encounter Visit Diagnoses Not on filedocumented in this encounter Care Teams Fluxer Relationship Specialty Start Date End Date John Grande MD PCP - General 05/16/09 08/30/[address] [place] [address] [place] [address] documented as of this encounter
--- OUTSIDE RECORDS SUMMARY | 2021-11-28 01:55 | XMS_ITS | Encounter Summary ---
:1965 Author Organization [facility] [place] [address] Care Team Providers Name Role Phone Mere Gonzales MD Primary Care Provider Reason for Visit Reason Onset Date Comments Follow-up 08/24/2018 Encounter Details Date Type Department Care Team Description 08/24/2018 Telephone Rheumatology at [facility] Dean Mosher, [place] [address] Social History Tobacco Use Types Packs/Day Years Used Date Never Smoker Smokeless Tobacco: Never Used Sex Assigned at Date Recorded Not on file documented as of this encounter Miscellaneous Notes Telephone Encounter - Dean Mosher RN - 08/24/2018 11:53 AM EDT Heike calls for MRI results of her neck, wants to have sent via [facility] so she can share with PCP on Wednesday. Advised Dr. Beth needs to evaluate results before they can be released. Will ask for this to be done today. Discussed with Dr. Beth and have released results per Dr. Beth. Heike will discuss with PCP onFriday. Several questions answered in regards to MRI and potential treatment. Asked Heike to discuss MRIresults with PCP. Advised there are options for pain management like PT/Injections/Medications. Asked her to talk withPCP about what they feel is best for her. documented in this encounter Plan of Treatment Not on filedocumented as of this encounter Visit Diagnoses Not on filedocumented in this encounter Care Teams Thermocouple Tester Relationship Specialty Start Date End Date Mere Gonzales MD PCP - General Internal Medicine 11/02/17 [address] [place] [address] documented as of this encounter
--- OUTSIDE RECORDS SUMMARY | 2021-11-28 01:55 | XMS_ITS | Encounter Summary ---
:1965 Author Organization [facility] Address [address] [place] [address] Care Team Providers Name Role Phone Elle Cates DO Primary Care Provider Encounter Details Date Type Department Care Team Description 02/18/2015 Hospital Encounter [facility] - Lit Villegas DO [id number] [place] [address] (Wo rk) Social History Tobacco Use Types [...] as of this encounter Discharge Diagnoses Diagnosis Z12.4 Encounter for screening for malign ant neoplasm of cervix-Z12.4[ICD-10-CM] documented in this encounter Medications at Time [...] on filedocumented in this encounter Care Teams Metal Bonding Press Operator Relationship Specialty Start Date End Date Elle Cates DO PCP - General 08/31/11 10/04/[address] [place] [address] documented as of this encounter
--- OUTSIDE RECORDS SUMMARY | 2021-11-28 01:55 | XMS_ITS | Encounter Summary ---
:1965 Author Organization [facility] Address [address] [place] [address] Care Team Providers Name Role Phone Elle Cates DO Primary Care Provider Encounter Details Date Type Department Care Team Description 08/31/2011 Hospital Encounter [facility] Mele Mena, [place] [address] [address] [place] [address] Social History Tobacco Use Types Packs/Day Years [...] Code Departure Means Destination Home or Self Fpc documented in this encounter Plan of Treatment Not on filedocumented as of this encounter Visit Diagnoses Not on filedocumented in this encounter Care Teams Alarm Signaler Relationship Specialty Start Date End Date Elle Cates DO PCP - General 08/31/11 10/04/17 [address] [place] [address] documented as of this encounter
--- OUTSIDE RECORDS SUMMARY | 2021-11-28 01:55 | XMS_ITS | Encounter Summary ---
:1965 Author Organization [facility] Address [address] [place] [address] Care Team Providers Name Role Phone Unavailable Primary Care Provider Unavailable Encounter Details Date Type Department Care Team Description 02/27/2000 Hospital Encounter [facility] - John Grande MD [address] [place] [address]. [place] [address] Other Unknown, Provider, [address] [place] [address] Social History Tobacco Use Types [...] Date/Time Associated Diagnosis Comme nts LIPASE Routine 02/27/2000 16:45 Results for this EST procedure are i n the results section. HEPATIC FUNCTION Routine 02/27/2000 16:45 Results for this PANEL (ALB,ALK EST procedure are in PHOS,ALT,AST,DBIL,T the resu lts OT BRONWYN,TOT PROT) section. documented in this encounter Results LIVER FUNCTION TESTS (02/27/2000 16:45 EST) Pathologist Sig nature Albumin 4.0 3.0 - 5.5 g/dl [facility] Total Protein 7.5 6.0 - 8.5 g/dl [facility] Total Alkaline 58 38 - 126 U/L [facility] Phosphatase ALT 22 15 - 75 U/L [facility] AST 16 8 - 50 U/L [facility] Unconjugated Bilirubin 0.1 0.1 - 1.1 mg/dl [facility] Conjugated Bilirubin 0.0 0.0 - 0.3 mg/dl [facility] Bilirubin, Total 0.2 0.2 - 1.3 mg/dl [facility] Specimen Performing Organization Address City/State/ZIP Code Phon e Number [facility] [address] [place] [address] SERVICES [facility] [address] [place] [address] LIPASE (02/27/2000 16:45 EST) Pathologist Sig nature Lipase 109 0 - 210 U/L [facility] Specimen Performing Organization Address City/[facility]/ZIP Code Phon e Number [facility] [address] [place] [address] SERVICES [facility] [address] [place] [address] documented in this encounter Visit Diagnoses Not on filedocumented in this encounter
--- OUTSIDE RECORDS SUMMARY | 2021-11-28 01:55 | XMS_ITS | Encounter Summary ---
:1965 Author Organization [facility] Address [address] [place] [address] Care Team Providers Name Role Phone Elle Cates DO Primary Care Provider Encounter Details Date Type Department Care Team Description 01/07/2015 Hospital Encounter [facility] - Lit Villegas DO [id number] [place] [address] (Wo rk) Social History Tobacco Use Types [...] on filedocumented in this encounter Care Teams Engraver Automatic Relationship Specialty Start Date End Date Elle Cates DO PCP - General 08/31/11 10/04/[address] [place] [address] documented as of this encounter
--- OUTSIDE RECORDS SUMMARY | 2021-11-28 01:55 | XMS_ITS | Encounter Summary ---
:1965 Author Organization [facility] Address [address] [place] [address] Care Team Providers Name Role Phone John Grande MD Primary Care Provider Elle Cates DO Primary Care Provider Mere Gonzales MD Primary Care Provider Ajay Castaneda PA-C Primary Care Provider Encounter Details Date Type Department Care Team Description 10/24/1998 Hospital Encounter [facility] - Abbe Link MD [address] [place] [address] Other Unknown, ProviderMD [address] [place] [address] Social History Tobacco Use Types Packs/Day Years [...] on filedocumented in this encounter Care Teams Cub Reporter Relationship Specialty Start Date End Date John Grande MD PCP - General 05/16/09 08/30/[address] [place] [address]. [place] [phone] Elle Cates DO PCP - General 08/31/11 10/04/17 [address] [place] [address] Mere Gonzales MD PCP - General 10/05/17 07/30/20 [address] [place] [phone] Ajay Castaneda PA-C PCP - General Internal Medicine - Primary 07/31/20 [address] [place] [address] documented as of this encounter
--- OUTSIDE RECORDS SUMMARY | 2021-11-28 01:55 | XMS_ITS | Encounter Summary ---
:1965 Author Organization [facility] Address [address] [place] [address] Care Team Providers Name Role Phone Unavailable Primary Care Provider Unavailable Encounter Details Date Type Department Care Team Description 06/04/2008 Hospital Encounter [facility] Emergency Department - Luci, Main Weinert [address] [place], [place] [id number] Social History Tobacco Use Types Packs/Day Years [...]
--- OUTSIDE RECORDS SUMMARY | 2021-11-28 01:55 | XMS_ITS | Clinical Summary ---
:1965 Author Organization [facility] [place] [address] Care Team Providers Name Role Phone Mere Gonzales MD Primary Care Provider Allergies No known active allergies Medications Medication Sig Dispensed Refills Start Date End Date Status cholecalciferol, Take by mouth 0 Active Vitamin D3, (VITAMIN daily. D-3) 5,000 unit Tablet amLODIPine (NORVASC) 5 Take 5 mg by mouth 0 04/26/19 19 Active mg Tablet Daily. aspirin (ASPIRIN LOW Take 81 mg by 0 Active DOSE) 81 mg Tablet, mouth Daily. Delayed Release (E.C.) hydrOXYzine (ATARAX) Take 1-2 tabs at 0 07/21/2018 Active 25 mg Tablet bedtime prn anxiety magnesium oxide Take 400 mg by 0 Active (MAG-OX) 400 mg (241.3 mouth Daily. mg magnesium) Tablet oxybutynin Take 5 mg by mouth 0 11/26/2017 Active (DITROPAN-XL) 5 mg Daily. Tablet Extended Rel 24 hr gabapentin (NEURONTIN) Take 100 mg by 0 Active 100 mg Capsule mouth daily. diclofenac (VOLTAREN) Apply 2 g 100 g 3 07/25/2018 Active 1 % GelIndications: topically 4 times Inflammatory daily as needed arthropathy, Pain in (hand and foot both feet, Bilateral pain). hip pain, Pain in both hands, Neuropathy Active Problems No known active problems Encounters Date Type Specialty Care Team Description 10/02/2021 Transcribe Orders Primary Care Ajay Castaneda PA Mas s of soft tissue; Chronic low bala k pain, unspecified back pain laterality, unspecified whether sciatica present; Other chronic p ain from Last 3 Months Social History Tobacco Use Types Packs/Day Years Used Date Never Smoker Smokeless Tobacco: Never Used Sex Assigned at Date Recorded Not on file Last Filed Vital Signs Vital Sign Reading Time Taken Comments Blood Pressure 122/69 07/25/2018 8:40 AM EDT Pulse 72 07/25/2018 8:40 AM EDT Temperature 36.6 ??C (97.9 ??F) 07/25/2018 8:40 AM EDT Respiratory Rate - - Oxygen Saturation 100% 07/25/2018 8:40 AM EDT Inhaled Oxygen Concentration - - Weight 53.1 kg (117 lb) 07/25/2018 8:40 AM EDT Height 159.4 cm (5' 2.75) 07/25/2018 8:40 AM EDT Body Mass Index 20.89 07/25/2018 8:40 AM EDT Plan of Treatment Health Maintenance Due Date Last Done Comments Covid-19 Vaccine (#1) 1971 HIV screen 1984 Hepatitis C Screening 1984 Tdap adult 1985 Tetanus vaccine 1985 HPV test 1996 PAP Smear 1996 Breast Cancer Share Decision Needed 2006 Colonoscopy 2011 Breast Cancer screening 2016 Zoster vaccine (1 of 2) 2016 Advance Directive 2021 Influenza (Flu) vaccine (1 of 1 - Influenza standard 10/23/2021 series) Insurance Payer Benefit Plan / Subscriber ID Effective Dates Phone Addre ss Type Group [facility] [id number] 2018-Present [phone] [address] [place] [address] Care Teams Petroleum Refinery Worker Relationship Specialty Start Date End Date Mere Gonzales MD PCP - General Internal Medicine 11/02/17 [address] [place] [address]
--- OUTSIDE RECORDS SUMMARY | 2021-11-28 01:55 | XMS_ITS | Encounter Summary ---
:1965 Author Organization [facility] Address [address] [place] [address] Care Team Providers Name Role Phone Elle Cates DO Primary Care Provider Encounter Details Date Type Department Care Team Description 02/28/2014 Results Only [facility] Elle Cates, Laboratory Services - [phone] [place] [id number] [phone] Social History Tobacco Use Types Packs/Day Years [...] Name Priority Date/Time Associated Diagnosis Comme nts HOLD LAVENDER TOP Routine 02/28/2014 14:09 Result s for this EST procedure are i n the results section. VITAMIN D (25,OH) Routine 02/28/2014 14:09 Result s for this EST procedure are i n the results section. TSH Routine 02/28/2014 14:09 Results for this EST procedure are i n the results section. LIPID PROFILE Routine 02/28/2014 14:09 Results fo r this (INCLUDES EST procedure are i n CHOLESTEROL, the results TRIGLYCERIDES, HDL, section. LDL) BASIC METABOLIC Routine 02/28/2014 14:09 Results for this PANEL (BMP) EST procedure are i n the results section. documented in this encounter Results VITAMIN D (25,OH) (02/28/2014 14:09 EST) 25OH Vitamin D Tot 15.8 ng/ml [facility] Comment: LABORATORY Reference Range: SERVICES Deficient = <10 ng/ml Insufficient = 10-30 ng/ml Sufficient = 30-100 ng/ml Toxic = >100 ng/ml Specimen Blood Performing Organization Address [facility] Phon e Number [facility] [address] [place] [address] SERVICES TSH (02/28/2014 14:09 EST) Pathologist Sig nature TSH 1.88 0.35 - 5.00 uIU/ml [facility]ORY SERVICES Specimen Blood Performing Organization Address [facility] Phon e Number [facility] [address] [place] [address] SERVICES LIPID PROFILE (INCLUDES CHOLESTEROL, TRIGLYCERIDES, HDL, LDL) (02/28/2014 14:09 EST) Cholesterol 210 mg/dl [facility] Comment: LABORATORY Desirable:<200 SERVICES Borderline High:200-239 High:>jt=501 Triglycerides 48 mg/dl [facility] Comment: LABORATORY Normal:<150 SERVICES Borderline High:150-199 High:200-499 Very High:>lq=943 HDL 77 mg/dl [facility] Comment: LABORATORY Low:<40 SERVICES Normal:40-60 Desirable: >60 LDL, Calculated 123 mg/dl [facility] Comment: LABORATORY Optimal:<100 SERVICES Near Optimal:100-129 Borderline High:130-159 High:160-189 Very High:>ow=224 Chol/HDL Ratio 2.7 [facility]ORATORY SERVICES Fasting? YES [facility]ORY SERVICES Non HDL Cholesterol 133 mg/dl [facility] Comment: LABORATORY Desirable:<130 SERVICES Borderline:130-159 High: 160-189 Very High: >di=627 Specimen Blood Performing Organization Address [facility] Phon e Number [facility] [address] [place] [address] SERVICES HOLD PURPLE TOP (02/28/2014 14:09 EST) Hold Purple Top EDTA for hematology will be discarded after 48 hours, differential not available after 12 [facility] hours. LABORATORY SERVICES Specimen Blood Performing Organization Address City/State/ZIP Code Phon e Number [facility] [address] [place] [address] SERVICES BASIC METABOLIC PANEL (02/28/2014 14:09 EST) Pathologist Sig nature Sodium 142 136 - 145 mEq/L [facility] SERVICES Potassium 4.4 3.5 - 5.0 mEq/L [facility] SERVICES Chloride 103 96 - 110 mEq/L [facility]ORY SERVICES CO2 25 24 - 32 mEq/L [facility]ORY SERVICES BUN 11 10 - 26 mg/dl [facility]ORY SERVICES Creatinine 0.69 0.52 - 1.04 mg/dl [facility]ORY SERVICES GFR, Calculated >60 >60 ml/min/1.73m2 [facility]ORY SERVICES Calcium 9.6 8.5 - 10.5 mg/dl [facility]ORY SERVICES Calculated Calcium 9.4 8.5 - 10.5 mg/dl [facility]ORY SERVICES Glucose, Serum 74 70 - 100 mg/dl [facility]ATORY SERVICES Fasting? YES [facility]ORY SERVICES Specimen Blood Performing Organization Address City/[facility] Code Phon e Number [facility] [address] [place] [address] SERVICES documented in this encounter Visit Diagnoses Not on filedocumented in this encounter Care Teams Assistant Head Cashier Relationship Specialty Start Date End Date Elle Cates DO PCP - General 08/31/11 10/04/17 [address] [place] [address] documented as of this encounter
--- OUTSIDE RECORDS SUMMARY | 2021-11-28 01:55 | XMS_ITS | Encounter Summary ---
:1965 Author Organization [facility] Address [address] [place] [address] Care Team Providers Name Role Phone John Grande MD Primary Care Provider Encounter Details Date Type Department Care Team Description 06/08/2011 Results Only [facility] Elle Cates, Laboratory Services - [id number] [place] [address] [phone] Social History Tobacco Use Types Packs/Day Years [...] Procedure Name Priority Date/Time Associated Comments Diagnosis VITAMIN D (25,OH) Routine 06/08/2011 10:58 Result s for this EDT procedure are i n the results section. SED RATE Routine 06/08/2011 10:58 Results for this EDT procedure are i n the results section. COMPLETE BLOOD COUNT Routine 06/08/2011 10:58 Res ults for this EDT procedure are i n the results section. RHEUMATOID FACTOR Routine 06/08/2011 10:58 Result s for this EDT procedure are i n the results section. TSH Routine 06/08/2011 10:58 Results for this EDT procedure are i n the results section. T4 FREE Routine 06/08/2011 10:58 Results for this EDT procedure are i n the results section. documented in this encounter Results VITAMIN D (25,OH) (06/08/2011 10:58 EDT) 25OH Vitamin D Tot 23.3 ng/ml [facility] Comment: LAB Reference Range: <10 ng/ml: Deficient 10-30 ng/ml: Insufficient 30-100 ng/ml: Sufficient >100 ng/ml: Toxic Specimen Performing Organization Address City/[facility] Phon e Number [facility] [address] [place] [address] SERVICES [facility] [address] [place] [address] TSH (06/08/2011 10:58 EDT) Pathologist Sig nature TSH 1.50 0.35 - 5.00 uIU/ml [facility] Specimen Performing Organization Address City/[facility]/ZIP Code Phon e Number [facility] [address] [place] [address] SERVICES [facility] [address] [place] [address] SED. RATE:ALLY (06/08/2011 10:58 EDT) Sed. Rate 5 0 - 20 mm/hr [facility] Comment: Note: Sample greater than 4 hrs old (but less than 12 hrs) when tested. If refrigerated, sample is stable when tested within 12 hours of collection. Specimen Performing Organization Address City/State/ZIP Code Phon e Number [facility] [address] [place] [address] SERVICES [facility] [address] [place] [address] RHEUMATOID FACTOR (06/08/2011 10:58 EDT) Pathologist Sig nature Rheumatoid Factor <20 <20 IU/ml [facility] Specimen Performing Organization Address City/[facility]/ZIP [facility] Phon e Number [facility] [address] [place] [address] SERVICES [facility] [address] [place] [address] T4 FREE (06/08/2011 10:58 EDT) Pathologist Sig nature Free T4 1.0 0.8 - 1.8 ng/dL [facility] Specimen Performing Organization Address City/[facility]/ZIP Code Phon e Number [facility] [address] [place] [address] SERVICES [facility] [address] [place] [address] (ABNORMAL) HEMAGRAM (06/08/2011 10:58 EDT) Pathologist Sig nature WBC 3.88 (L) 4.0 - 12.4 K/cmm [facility] RBC 4.19 3.86 - 5.04 M/cmm [facility] Hemoglobin 13.7 11.6 - 15.2 gm/dl [facility] HCT 39.8 34.9 - 44.4 % [facility] MCV 95 81 - 98 fl [facility] MCH 32.6 26.7 - 33.3 pg [facility] MCHC 34.3 32.1 - 35.9 gm/dl [facility] PLT 291 141 - 320 K/cmm [facility] RDW-CV 13.6 11.7 - 14.6 % [facility] Specimen Performing Organization Address City/[facility]/ZIP Code Phon e Number [facility] [address] [place] [address] SERVICES [facility] [address] [place] [address] documented in this encounter Visit Diagnoses Not on filedocumented in this encounter Care Teams Ssn/Ssbn Assistant Navigator Relationship Specialty Start Date End Date John Grande MD PCP - General 05/16/09 08/30/[address] [place] [phone] documented as of this encounter
--- OUTSIDE RECORDS SUMMARY | 2021-11-28 01:55 | XMS_ITS | Encounter Summary ---
:[address] [facility] Address [address] [place] [address] Care Team Providers Name Role Phone Unavailable Primary Care Provider Unavailable Encounter Details Date Type Department Care Team Description 05/13/2009 Results Only [facility] Mara Mena MD Laboratory Services - [address] [place] [address] [place], [place] [id number] [phone] Social History Tobacco Use Types Packs/Day Years [...] Date/Time Associated Diagnosis Comme nts CYTOPATHOLOGY Routine 05/13/2009 0:00 EDT Results for this procedure are i n the results section . documented in this encounter Results CYTOPATHOLOGY (05/13/2009 0:00 EDT) Pathology Report: CYTOPATHOLOGY REPORT ? [facility] ? LAB Reports generated via electr onic interface contain original data; ? however they are lacking the format of the original report. ? Caution should be taken when reading/interpreting unformatted reports. ? Name: ? ANDREW IBARRA L ? Accession #: ? [id number] ? : ? 1965 (Age: 44) ??F ?Collect Date: ? 05/13/2009 ? Location: ? [facility] ? Receive Date: ? 05/14/2009 ? Provider: ?MARA VISEL LI MD ? Copy to: ? Specimen/Source: ? Pap Test, Cervix/Endocervix, ThinPrep Imaging System ? with manual evaluation ? Last Menstrual Period: ? 03/01/10 ? Other: ? HPVA - HPV testing requested if ASC-US on the current ThinPrep Pap test. ? SPECIMEN ADEQUACY ? Satisfactory for Eval uation ? - transformation zone compon ent present ? GENERAL CATEGORIZATION ? Negative for Intraepi thelial Lesion or Malignancy ? INTERPRETATION ? Reactive cellular avel nges associated with inflammation present (includes ?? repair). ? Fungal organisms present mor phologically consistent with Alina species. ? Document reviewed and electr onically signed by: ? ABDELMONEM ELHOSSEINY MD ? Report Date: ??03/26/ 2010 11:43 ? End of Report ? Specimen Performing Organization Address City/State/ZIP Code Phon e Number [facility] [address] [place] [address] SERVICES [facility] [address] [place] [address] documented in this encounter Visit Diagnoses Not on filedocumented in this encounter
--- OUTSIDE RECORDS SUMMARY | 2021-11-28 01:55 | XMS_ITS | Encounter Summary ---
:1965 Author Organization [facility] [place] [address] Care Team Providers Name Role Phone Mere Gonzales MD Primary Care Provider Reason for Referral Consultation (Routine) - Closed Specialty Diagnoses / Procedures Referred By Contact Refer red To Contact Obstetrics and Diagnoses Uterine mass Sarita Viveros, [facility] Java Integration Developer 5l Gynecology [facility] [place] [phone] Fax: Referral ID Status Reason Start Date Expiration Date Visits V isits Requested Authorized [id number] Closed Consult, 08/17/2018 08/17/2019 3 3 Test & Treat Encounter Details Date Type Department Care Team Description 08/17/2018 Orders Only Rheumatology at [facility] Sarita Viveros DO Uterine mass [facility] [place] [phone] RHEUMATOLOGY DEPT [phone] [place], [place] [address] (Wo rk) Social History Tobacco Use Types Packs/Day Years Used Date Never Smoker Smokeless Tobacco: Never Used Sex Assigned at Date Recorded Not on file documented as of this encounter Plan of Treatment Scheduled Referrals Name Type Priority Associated Diagnoses Order S chedule Referral to Ob-Architectural Design Lecturer Outpatient Referral Routine Uterine mass Or dered: 08/17/2018 documented as of this encounter Visit Diagnoses Diagnosis Uterine mass Other specified symptom associated with female genital organs documented in this encounter Care Teams Car Scrubber Relationship Specialty Start Date End Date Mere Gonzales MD PCP - General Internal Medicine 11/02/[address] [place] [phone] documented as of this encounter
--- OUTSIDE RECORDS SUMMARY | 2021-11-28 01:56 | XMS_ITS | Encounter Summary ---
:1965 Author Organization [facility] [place] [address] Care Team Providers Name Role Phone Mere Gonzales MD Primary Care Provider Reason for Visit Reason Onset Date Comments Follow-up 08/12/2018 Encounter Details Date Type Department Care Team Description 08/12/2018 Telephone Rheumatology at [facility] [place] [phone] Social History Tobacco Use Types Packs/Day Years Used Date Never Smoker Smokeless Tobacco: Never Used Sex Assigned at Date Recorded Not on file documented as of this encounter Miscellaneous Notes Telephone Encounter - Dean Mosher RN - 08/12/2018 4:01 PM EDT Juanito Beth MD sent to Dean Mosher RN Caller: Unspecified (Yesterday, ??4:04 PM) ?? Ordered Let her know it has to be approved may not be done the same day Spoke with Heike and she will call MRI to try to schedule but was advise she elvia have to have separate MRI on another day. Telephone Encounter - Dean Mosher RN - 08/12/2018 10:52 AM EDT Heike calls today and states she is coming in on Wednesday for an MRI and wants Dr. Beth to order MRI of her neck As well. I advised that we had discussed this previously and Heike states he neckhurts more than her lower back and could I just ask Dr. Beth if he will order? I advised that I will ask and get back to her as soon as I hear back from Dr. Beth. documented in this encounter Plan of Treatment Not on filedocumented as of this encounter Visit Diagnoses Not on filedocumented in this encounter Care Teams Vascular Surgery Physician Relationship Specialty Start Date End Date Mere Gonzales MD PCP - General Internal Medicine 11/02/17 [address] [place] [phone] documented as of this encounter
--- OUTSIDE RECORDS SUMMARY | 2021-11-28 01:56 | XMS_ITS | Encounter Summary ---
:1965 Author Organization [facility] [place] [address] Care Team Providers Name Role Phone Mere Gonzales MD Primary Care Provider Reason for Referral Diagnostic Test (Routine) - Denied Specialty Diagnoses / Procedures Referred By Contact Refer red To Contact Radiology Diagnoses Bilateral hip pain Chronic bilateral low back pain without sciatica Juanito Beth MD [facility] Rad Mri Procedures MRI Lumbar Spine wo Contrast (Generic) [address] [id number] Referral ID Status Reason Start Date Expiration Date Visits V isits Requested Authorized [id number] Denied Specialty 08/05/2018 08/05/2019 1 0 Service Requested iagnostic Test (Routine) - Specialty Diagnoses / Procedures Referred By Contact Refer red To Contact Radiology Diagnoses Bilateral hip pain Chronic bilateral low back pain without sciatica Juanito Beth MD [facility] Rad Mri Procedures MRI Sacroiliac Joints wo Contrast [address] [phone] Referral ID Status Reason Start Date Expiration Visits Visits Date Requested Authorized [id number] Specialty 08/05/2018 08/05/2019 1 1 Service Requested Reason for Visit Diagnostic Test (Routine) - Denied Specialty Diagnoses / Procedures Referred By Contact Refer red To Contact Radiology Diagnoses Bilateral hip pain Chronic bilateral low back pain without sciatica Juanito Beth MD [facility] Rad Mri Procedures MRI Lumbar Spine wo Contrast (Generic) [facility] [address] [place] [address] [place] [address] Referral ID Status Reason Start Date Expiration Date Visits V isits Requested Authorized [id number] Denied Specialty 08/05/2018 08/05/2019 1 0 Service Requested Encounter Details Date Type Department Care Team Description 08/15/2018 Hospital Encounter MRI at [facility] Juanito Beth, Bilateral hip pain; [facility] Chronic bilateral low back pain without sciatica Drive [facility] [id number] [place], [place] [phone] [facility] Social History Tobacco Use Types Packs/Day Years [...] Procedure Name Priority Date/Time Associated Comments Diagnosis MRI SACROILIAC Routine 08/15/2018 7:20 AM Bilateral hip pain Results for this JOINTS WO CONTRAST EDT Chronic bilateral proc edure are in low back pain the results without sciatica section. MRI LUMBAR SPINE Routine 08/15/2018 7:20 AM Bilateral hi p pain Results for this WITHOUT CONTRAST EDT Chronic bilateral proced ure are in low back pain the results without sciatica section. documented in this encounter Results MRI Lumbar Spine wo Contrast (Generic) (08/15/2018 7:20 AM EDT) Anatomical Region Laterality Modality L-spine Magnetic Resonance Specimen (Source) Anatomical Location Collection Method / Collectio n Time Received Time / Laterality Volume Impressions 08/15/2018 8:53 AM EDT Mild lumbar disc and facet degeneration. No marrow signal abnormality to suggest inflammatory spondyloarthropathy. Comment: The Following Findings Are So C ommon In People Without Low Back Pain That While We Report Their Presence, The y Must Be Interpreted With Caution And In Context Of The Clinical Situation (Re stephanie- Wendi Et Al, Spine 2001). Findings: (Prevalence In Patients Withou t Low Back Pain), Disc Degeneration (Decreased T2 Signal, Height Loss, Bulge ) (91%), Disc T2-Signal Loss (83%), Disc Height Loss (56%), Disc Bulge (64%), Dis c Protrusion (32%), Annular Fissure (38%). Thank you for letting us participate in the care of this patient. For questions regarding this report, please contact e number below. ? Narrative 08/15/2018 8:53 AM EDT EXAMINATION: MRI LUMBAR SPINE WO CONTRAST (GENERIC) CLINICAL HISTORY: inflammatory arhtiris with HLA b27 + looking for changes consitent with TECHNIQUE: MRI of the lumbar spine performed withou t intravenous contrast administration. COMPARISON: None FINDINGS: Alignment is normal. Marrow signal is no rmal. The conus is normal in signal and terminates at L1. Abdominal aorta is nor mal in caliber. T12-L1: Normal. L1-2: Normal. L2-3: Normal. L3-4: Disc bulge without significant aaliyah nosis. L4-5: Disc bulge and facet arthropathy c ontributes to mild central canal stenosis and mild bilateral neural kavita inal stenosis. L5-S1: Disc bulge with left-sided endpla te proliferative change contributing to mild left foraminal stenosis. Procedure Note Chris Block MD - 08/15/2018Formatt ing of this note might be different from the original. EXAMINATION: MRI LUMBAR SPINE WO CONTRAS T (GENERIC) CLINICAL HISTORY: inflammatory arhtiris with HLA b27 + looking for changes consitent with TECHNIQUE: MRI of the lumbar spine performed withou t intravenous contrast administration. COMPARISON: None FINDINGS: Alignment is normal. Marrow signal is no rmal. The conus is normal in signal and terminates at L1. Abdominal aorta is nor mal in caliber. T12-L1: Normal. L1-2: Normal. L2-3: Normal. L3-4: Disc bulge without significant aaliyah nosis. L4-5: Disc bulge and facet arthropathy c ontributes to mild central canal stenosis and mild bilateral neural kavita inal stenosis. L5-S1: Disc bulge with left-sided endpla te proliferative change contributing to mild left foraminal stenosis. IMPRESSION Mild lumbar disc and facet degeneration. No marrow signal abnormality to suggest inflammatory spondyloarthropathy. Comment: The Following Findings Are So C ommon In People Without Low Back Pain That While We Report Their Presence, The y Must Be Interpreted With Caution And In Context Of The Clinical Situation (Re susan Adame Et Al, Spine 2001). Findings: (Prevalence In Patients Withou t Low Back Pain), Disc Degeneration (Decreased T2 Signal, Height Loss, Bulge ) (91%), Disc T2-Signal Loss (83%), Disc Height Loss (56%), Disc Bulge (64%), Dis c Protrusion (32%), Annular Fissure (38%). Thank you for letting us participate in the care of this patient. For questions regarding this report, please contact e number below. Juanito Beth MD IMG MRI ORDERABLES (ABNORMAL) MRI Sacroiliac Joints wo Contrast (08/15/2018 7:20 AM EDT) Anatomical Region Laterality Modality Pelvis Magnetic Resonance Specimen (Source) Anatomical Location Collection Method / Collectio n Time Received Time / Laterality Volume Impressions 08/15/2018 9:06 AM EDT 1. ??No MR evidence of sacroiliitis. 2. ??Bilateral hip osteoarthropathy is s een to better advantage on prior radiographs. 3. 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 4. ??Insertional gluteal tendinosis bila terally, right worse than left. There is question of superimposed low-grade parti al tearing as well. 5. ??Unexpected findin.2 x 2.9 cm ir regular, predominantly STIR hyperintense lesion centered in the [...] imaging, is recommended for furthe r characterization. 6. ??Unexpected finding: Partial visuali zation of large heterogeneous exophytic mass arising from the right wall of the uterus with multiple smaller uterine masses. Given that this finding is only partially visualized, it is incompletely evaluated. Statistically, this is most l ikely represents uterine fibroid, but further evaluation with pelvic ultrasoun d is recommended. 7. ??Unexpected finding: Collection of T 2 hyperintense foci centered at the cervix. While this could represent a col lection of small nabothian cysts, correlation with direct visualization on speculum exam to evaluate for suspicious cortical lesions is recommend ed. 8. ??Unexpected finding: Small amount of free fluid in the pelvis. While free fluid in the pelvis can be physiologic i n a woman of reproductive age who was still having menstrual cycles, it is aty pical for a postmenopausal woman have free fluid of the pelvis. This finding s hould be correlated with the patient's menopausal status. Thank you for letting us participate in the care of this patient. For questions regarding this report, please contact [facility] number below. ? Narrative 08/15/2018 9:06 AM EDT EXAMINATION: MRI SACROILIAC JOINTS WO CONTRAST CLINICAL HISTORY: concern for sacroiliti s - inflammatory arhtiris with HLA b27 + looking for changes consitent with COMPARISON: Pelvis and bilateral hip rad iographs 07/25/2018 TECHNIQUE: Routine noncontrast MRI of [facility] sacroiliac joints was performed without IV contrast. FINDINGS: Bones and joints: No acute fracture. Disc desiccation and disc height loss, m ost pronounced at L5-S1. Facet arthropathy at L5-S1 and L4-5 with mild perifacet edema at L5-S1. No large hip joint effusions. Small kiana inal osteophytes of the bilateral hips was seen to better advantage on prior pe lvic radiographs. No fluid distention of the sacroiliac rick ints. No periarticular erosions or edema around the SI joints. Tendons and muscles: Bilateral insertion al gluteal tendinosis, right worse than left with questionable of superimposed l ow-grade partial tearing (series 10, image 16 and 15). No high-grade disrupti on of the iliopsoas tendons. No high-grade disruption of the origin of t he bilateral hamstrings tendons. Symmetric bulk and signal of the visuali zed pelvic muscles. Other soft tissues: Irregular STIR hyper intense lesion centered in the subcutaneous fat overlying the posterior and superior aspect of the right buttocks (series 10, image 31). This fin ding measures 2.2 x 2.9 cm in the coronal plane. There is a thin rim of ST IR hypointense signal near the periphery. This finding is incompletely evaluated. Nonspecific small amount of pelvic free fluid. Partial visualization of a large heterogeneous, exophytic mass arising fr om the right wall of the uterus with multiple smaller uterine masses, presuma ami representing uterine fibroids. T2 hyperintense foci centered in the cervix are nonspecific and could represent small bulky and cyst, but correlation wi th direct visualization on speculum exam is recommended. Resulting Agency Comment Unexpected Finding Juanito Beth MD IMG MRI ORDERABLES documented in this encounter Visit Diagnoses Diagnosis Bilateral hip pain Pain in joint, pelvic region and thigh Chronic bilateral low back pain without sciatica documented in this encounter Care Teams Personal Financial Representative Relationship Specialty Start Date End Date Mere Gonzales MD PCP - General Internal Medicine 11/02/[address] [place] [phone] documented as of this encounter
--- OUTSIDE RECORDS SUMMARY | 2021-11-28 01:56 | XMS_ITS | Encounter Summary ---
:1965 Author Organization [facility] [place] [address] Care Team Providers Name Role Phone Mere Gonzales MD Primary Care Provider Reason for Referral Consultation (Routine) - Closed Specialty Diagnoses / Procedures Referred By Contact Refer red To Contact Neurology Diagnoses Inflammatory arthropathy Pain in both feet Bilateral hip pain Pain in both hands Neuropathy Juanito Beth MD [facility] [address] [facility] [place] [address] [place] [address] Fax: Referral ID Status Reason Start Date Expiration Date Visits V isits Requested Authorized [id number] Closed Consult, 07/25/2018 07/25/2019 1 1 Test & Treat Reason for Visit Consultation (Routine) - Closed Specialty Diagnoses / Procedures Referred By Contact Refer red To Contact Rheumatology Diagnoses PMR Mere Gonzales MD [facility] [address] [place] [address] [phone] Referral ID Status Reason Start Date Expiration Date Visits V isits Requested Authorized [id number] Closed Consult, 06/22/2018 06/22/2019 1 1 Test & Treat Connection Center Encounter Details Date Type Department Care Team Description 07/25/2018 Office Visit Rheumatology at [facility] Juanito Beth, Inflammatory arthropathy; [facility] Pain in both feet; [facility] Bilateral hip pain; [place] [address] Pain in both hands; [phone] [place], [place] [address] Neuropathy Social History Tobacco Use Types Packs/Day Years Used Date Never Smoker Smokeless Tobacco: Never Used Sex Assigned at Date Recorded Not on file documented as of this encounter Last Filed [...] Mass Index 20.89 07/25/2018 8:40 AM EDT documented in this encounter Progress Notes Juanito Beth MD - 07/25/2018 8:30 AM EDT Rheumatology Consult Note Reason for Consult: Heike Salguero presents today at the request of Mere Gonzales MD for evaluation of PMR? I have reviewed the provided records, pertinent records available at the time of the [facility] appointment with in the medical record and any forms completed by the patient. [facility]. Labs done previously show normal SSB, RANGE MANAGER, SSA, double-stranded DNA, rheumatoid factor, INEZ HPI: Heike Salguero is a 53 y.o. female who presents today for evaluation of PMR previously seen Dr COLIN. She has a history of ray nods but is on Adderall which he exacerbates his symptoms but is improved since starting amlodipine. She has history of GERD and prescribed omeprazole along meloxicam is a steroid history of steroid use she was seen by her PCP was found to have and complained of severeupper extremity pain and stiffness from the chest with great difficulty moving. The time of initial evaluation she was uninsured so limited record of her results will start on prednisone 10 mg for almost 3 years and we started to wean off in September 2017 slowly titrated off as being titrated off her stiffness returned he has had some falls due to stiffness. She describes chronically stiff neck chroniclow back pain chronic achy shoulders stiff into the upper arm with sore elbows cracking stiffness ofthe wrist and hands with pain every day she described some mottling of the skin with history of somenarrowing of the arteries on scan of the lower extremities skin pain on the inner part of the arm under the shoulders shows no swollen red or warm joints some warmth on the inner part medial knee of the knee. Is some chronic dry eyes. She does not recall x-rays She has new lower back pain will last 3 weeks but has a chronic history of low back pain she does not describe pain that is worse in the middle of the night that gets better with activity. She has failed Advil and Aleve in the past She describes no jaw pain, tongue pain, eye pain, double vision, loss of vision, stiffness fever chills or night sweats ROS: (+Raynaud's, General (-)fevers, (-)chills, (-)night sweats, (-)wt loss/gain. HEENT (-)head trauma, (-)vision change, (-)tinnitus, (-)epistaxis, (-)sore throat, (-)bleeding gums,(-)oral ulcers, (-)dry eyes, (-)dry mouth, (- )dysphagia, (-)GERD, (-)photo sensitivity, (-)Hair loss, (-)vertigo CVS (-)chest pain, (-)palpitations, (-)pedal edema, (-)PND, (-)orthopnea. Pulm (-)shortness of breath, (-)JEFFERY, (-)wheezes, (-)cough, (-)pleuritic pain GI (-)N/V, (-)abdominal pain, (-)emesis, (-)hematemesis, (-)hematochezia, (- )change in appetite (-)hematuria, (-)dysuria, (-)frequency, (-)nocturia, (-)genital ulcers MS (-)muscle weakness, (-)paralysis, (-)joint pain, (-)hx of arthritis Endo (-)thyroid disorders, (-)diabetes, (-)temperature intolerance. Neuro (-)focal weakness, (-)paresthesias, (-)gait instability. Skin (-) ulcers Psych (-) mood disorder. No past medical history on file. There are no active problems to display for this patient. No past surgical history on file. No family history on file. Social History Socioeconomic History ??? Marital status: [...] Substance and Sexual Activity ??? Alcohol use: None ??? Drug use: None ??? Sexual activity: None Lifestyle ??? Physical activity: Days per week: None Minutes per session: None ??? Stress: None Relationships ??? Social connections: Talks on phone: None Gets together: None Attends mormonism service: None Active member of club or organization: None Attends meetings of clubs or organizations: None Relationship status: None ??? Intimate partner violence: Fear of current or ex partner: None Emotionally abused: None Physically abused: None Forced sexual activity: None Other Topics Concern ??? None Social History Narrative ??? None Current Outpatient Medications Medication Sig Dispense Refill ??? cholecalciferol, Vitamin D3, (VITAMIN D-3) 5,000 unit Tablet Take by mouth daily. ??? amLODIPine (NORVASC) 5 mg Tablet Take 5 mg by mouth Daily. ??? aspirin (ASPIRIN LOW DOSE) 81 mg Tablet, Delayed Release (E.C.) Take 81 mg by mouth Daily. ??? [START ON 08/10/2018] dextroamphetamine-amphetamine (ADDERALL) 15 mg Tablet Take 15 mg by mouth Daily. ??? hydrOXYzine (ATARAX) 25 mg Tablet Take 1-2 tabs at bedtime prn anxiety ??? magnesium oxide (MAG-OX) 400 mg (241.3 mg magnesium) Tablet Take 400 mg by mouth Daily. ??? oxybutynin (DITROPAN-XL) 5 mg Tablet Extended Rel 24 hr Take 5 mg by mouth Daily. ??? gabapentin (NEURONTIN) 100 mg Capsule Take 100 mg by mouth daily. ??? diclofenac (VOLTAREN) 1 % Gel Apply 2 g topically 4 times daily as needed (hand and foot pain). 100 g 3 No current facility-administered medications for this visit. Current Outpatient Medications on File Prior to Visit Medication Sig Dispense Refill ??? cholecalciferol, Vitamin D3, (VITAMIN D-3) 5,000 unit Tablet Take by mouth daily. ??? amLODIPine (NORVASC) 5 mg Tablet Take 5 mg by mouth Daily. ??? aspirin (ASPIRIN LOW DOSE) 81 mg Tablet, Delayed Release (E.C.) Take 81 mg by mouth Daily. ??? [START ON 08/10/2018] dextroamphetamine-amphetamine (ADDERALL) 15 mg Tablet Take 15 mg by mouth Daily. ??? hydrOXYzine (ATARAX) 25 mg Tablet Take 1-2 tabs at bedtime prn anxiety ??? magnesium oxide (MAG-OX) 400 mg (241.3 mg magnesium) Tablet Take 400 mg by mouth Daily. ??? oxybutynin (DITROPAN-XL) 5 mg Tablet Extended Rel 24 hr Take 5 mg by mouth Daily. ??? gabapentin (NEURONTIN) 100 mg Capsule Take 100 mg by mouth daily. No current facility-administered medications on file prior to visit. No Known Allergies Physical Exam: BP 122/69 Pulse 72 Temp 36.6 ??C (97.9 ??F) Ht 159.4 cm (5' 2.75) Wt 53.1 kg (117 lb) SpO2 100% BMI 20.89 kg/m?? General: AAOx3, NAD HEENT: Mucous membranes are moist, no oral mucosal ulcerations, temporal artery non-palpable Neck: Supple, no lymphadenopathy, full range of motion. Cardiovascular: RR, (-)murmurs, rubs, or gallops. Lungs: Clear to auscultation bilaterally. (-)R/R/W Abdomen: Soft, non tender, non distended, + bowel sounds, no hepatosplenomegaly. Neuro: Alert and oriented x3. Cranial nerves II through XII grossly intact. - Strength 5/5 throughout, -Sensation to light touch is grossly normal throughout. DTRs are 2+ throughout. Toes down going bilaterally. Skin: (-)ulcers, (-)rash Vascular: Pulses are equal in all extremities. MSK Back: Non tender over the spine and costovertebral angles bilaterally. (-)Robert Extremities Shoulders: FROM, non-tender to palpation Elbows:FROM, (-)pain, (-)nodules Wrists: FROM, no swelling, non-tender Hands: No synovitis, no MCP compression tenderness, full claw and fist Hips: FROM, (-) fader (-robert) Knees: (-)effusions, non-tender ROM Ankles: FROM, non-tender, no swelling Feet: no MTP compression tenderness Spine, shoulders, elbows, wrists, fingers, hips, knees and ankles; no active swelling, tenderness orsynovitis at any joint. No soft tissue nodules. Labs: Studies: Assessment: Heike Salguero is a 53 y.o. female who presents today with polyarthralgia, myalgia shoulder, hip, neck, lower back, pain hand, wrist pain previously evaluated by manager planning [facility] fDr. Carmona. Autoimmune work-up at that time was within normal limits. Despite patient systemic complaints with there is little evidence of inflammatory arthropathy on exam cervical spine x-rays hip knees L-spine and shoulder ordered in 01/24/2018 results are not available at the time of this visit. though Care everywhere cervical x-ray shows degenerative disc disease level C5-3 6 with some cervical lordosis shoulder x-rays show mild degenerative changes of the AC joint bilaterally, x-rays of bilateral hips show minimal degenerative disc disease with mild narrowing sacroiliac joint is seen x-raysof the L-spine show minimal degenerative disc disease L5-L5 L5-S1 and bilateral knees were within normal limits. Despite these findings patient is HLA-B27 positive which may indicate an undelying seronegative SpA. However I suspect much like Dr. Carmona that majority of these patients symptoms are relatedto osteoarthritis. We could consider an MRI for further evaluation for inflammatory changes. Howevermy exam did not identify the specific site that offered the greatest amount of information with advanced imaging. Will dsicuss such indications with the patient At this time I recommend physical therapy and further monitoring patient to be aware of her current symptoms improvement report back to us that there is any changes she understands that all may exacerbate her raynods Plan or Recommendation : Orders Placed This Encounter Procedures ? ? XR Pelvis w AP & Lat Hip Bilat ??? XR Foot Min 3 views Bilat (Generic) ??? CRP, acute inflammation ??? Comprehensive metabolic panel (non-fasting) ??? CBC (with Diff) ??? Sedimentation rate ??? Cyclic Citrullinated Peptide ??? Cryoglobulin ??? Cytoplasmic Neutrophilic Ab ??? Myeloperoxidase Ab ??? Proteinase-3 Antibody ??? CK ??? HLA-B27 ??? Hemogram ??? Differential, Automated ??? Referral to Neurology documented in this encounter Plan of Treatment Scheduled Referrals Name Type Priority Associated Diagnoses Order S chedule Referral to Outpatient Referral Routine Inflammatory Ordered: Neurology arthropathy 07/25/2018 Pain in both fee t Bilateral hip pa in Pain in both tony ds Neuropathy documented as of this encounter Procedures Procedure Name Priority Date/Time Associated Diagnosis Comme nts CRP, ACUTE INFLAMMATION Routine 07/25/2018 10:15 Inflammatory Results for this AM EDT arthropathy procedure are in Pain in both fee t the results Bilateral hip pa in section. Pain in both tony ds Neuropathy CYTOPLASMIC Routine 07/25/2018 10:15 Inflammatory Results for this NEUTROPHILIC AB AM EDT arthropathy procedure are in Pain in both fee t the results Bilateral hip pa in section. Pain in both tony ds Neuropathy PROTEINASE-3 ANTIBODY Routine 07/25/2018 10:15 Inflammatory Re sults for this AM EDT arthropathy procedure are in Pain in both fee t the results Bilateral hip pa in section. Pain in both tony ds Neuropathy MYELOPEROXIDASE AB Routine 07/25/2018 10:15 Inflammatory Resul ts for this AM EDT arthropathy procedure are in Pain in both fee t the results Bilateral hip pa in section. Pain in both tony ds Neuropathy ANTI-CYCLIC Routine 07/25/2018 10:15 Inflammatory Results for this CITRULLINATED PEPTIDE AM EDT arthropath y procedure are in AB Pain in both fee t the results Bilateral hip pa in section. Pain in both tony ds Neuropathy HEMOGRAM Routine 07/25/2018 10:15 Inflammatory Results for this AM EDT arthropathy procedure are in Pain in both fee t the results Bilateral hip pa in section. Pain in both tony ds Neuropathy DIFFERENTIAL, AUTOMATED Routine 07/25/2018 10:15 Inflammatory Results for this AM EDT arthropathy procedure are in Pain in both fee t the results Bilateral hip pa in section. Pain in both tony ds Neuropathy HLA-B27 Routine 07/25/2018 10:15 Inflammatory Results for this AM EDT arthropathy procedure are in Pain in both fee t the results Bilateral hip pa in section. Pain in both tony ds Neuropathy CRYOGLOBULIN Routine 07/25/2018 10:15 Inflammatory Results for this AM EDT arthropathy procedure are in Pain in both fee t the results Bilateral hip pa in section. Pain in both tony ds Neuropathy SEDIMENTATION RATE Routine 07/25/2018 10:15 Inflammatory Resul ts for this AM EDT arthropathy procedure are in Pain in both fee t the results Bilateral hip pa in section. Pain in both tony ds Neuropathy CBC (WITH DIFF) Routine 07/25/2018 10:15 Inflammatory AM EDT arthropathy Pain in both fee t Bilateral hip pa in Pain in both tony ds Neuropathy CK Routine 07/25/2018 10:15 Inflammatory Results for this AM EDT arthropathy procedure are in Pain in both fee t the results Bilateral hip pa in section. Pain in both tony ds Neuropathy COMPREHENSIVE METABOLIC Routine 07/25/2018 10:15 Inflammatory Results for this PANEL (NON-FASTING) AM EDT arthropathy procedure are in Pain in both fee t the results Bilateral hip pa in section. Pain in both tony ds Neuropathy documented in this encounter Results XR Foot Min 3 views Bilat (Generic) (07/25/2018 12:21 PM EDT) Anatomical Region Laterality Modality Foot Bilateral Digital Radiography Specimen (Source) Anatomical Location Collection Method / Collectio n Time Received Time / Laterality Volume Impressions 07/25/2018 4:06 PM EDT I do not see radiographic evidence of inflammatory arthritis or an obvious explanation for the patient's foot pain. Thank you for letting us participate in the care of this patient. For questions regarding this report, please contact e number below. ? Electronically signed by: Braeden rivera [facility] ([phone]), at 07/25/2018 4:06 PM Narrative 07/25/2018 4:06 PM EDT EXAMINATION: XR FOOT MIN 3 VIEWS BILAT (GENERIC) CLINICAL HISTORY: inflammatory arthritis , and foot pain TECHNIQUE: 3 views BILATERAL feet COMPARISON: None FINDINGS: No ankle or subtalar effusion. The Achilles tendon is normal in appeara nce bilaterally. No retrocalcaneal bursitis or erosive di sease. The longitudinal arch is normal bilatera lly. No midfoot erosions. No metatarsophalangeal joint erosive dis ease is identified. No erosions are seen at the interphalangeal joints. No acro o steolysis. Procedure Note Braeden Holm MD - 07/25/2018Forma tting of this note might be different from the original. EXAMINATION: XR FOOT MIN 3 VIEWS BILAT ( GENERIC) CLINICAL HISTORY: inflammatory arthritis , and foot pain TECHNIQUE: 3 views BILATERAL feet COMPARISON: None FINDINGS: No ankle or subtalar effusion. The Achilles tendon is normal in appeara nce bilaterally. No retrocalcaneal bursitis or erosive di sease. The longitudinal arch is normal bilatera lly. No midfoot erosions. No metatarsophalangeal joint erosive dis ease is identified. No erosions are seen at the interphalangeal joints. No acro o steolysis. IMPRESSION I do not see radiographic evidence of in flammatory arthritis or an obvious explanation for the patient's foot pain. Thank you for letting us participate in the care of this patient. For questions regarding this report, please contact e number below. Electronically signed by: Braeden rivera [facility] ([phone]), at 07/25/2018 4:06 PM Juanito Beth MD IMG DX ORDERABLES XR Pelvis w AP & Lat Hip Bilat (07/25/2018 12:21 PM EDT) Anatomical Region Laterality Modality Pelvis, Hip Bilateral Digital Radiography Specimen (Source) Anatomical Location Collection Method / Collectio n Time Received Time / Laterality Volume Impressions 07/25/2018 4:15 PM EDT Mild degenerative changes as detailed above. Thank you for letting us participate in the care of this patient. For questions regarding this report, please contact th e number below. ? Narrative 07/25/2018 4:15 PM EDT EXAMINATION: XR PELVIS W AP AND LAT HIP BILAT CLINICAL HISTORY: bilateral hip pain TECHNIQUE: AP view of the pelvis. AP and lateral vi ew both hips. COMPARISON: None FINDINGS: Bilateral femoral heads are well-seated within the acetabula and have a normal configuration. Bilateral hip joint space s are well preserved. Only minimal proliferative change at the acetabular r oofs. Overall normal alignment of the pelvis. Mild degenerative changes at the sacroiliac joints and at the pubic symph ysis. Procedure Note Keisha Bertrand MD - 2018 EXAMINATION: XR PELVIS W AP AND LAT HIP BILAT CLINICAL HISTORY: bilateral hip pain TECHNIQUE: AP view of the pelvis. AP and lateral vi ew both hips. COMPARISON: None FINDINGS: Bilateral femoral heads are well-seated within the acetabula and have a normal configuration. Bilateral hip joint space s are well preserved. Only minimal proliferative change at the acetabular r oofs. Overall normal alignment of the pelvis. Mild degenerative changes at the sacroiliac joints and at the pubic symph ysis. IMPRESSION Mild degenerative changes as detailed ab ove. Thank you for letting us participate in the care of this patient. For questions regarding this report, please contact e number below. Juanito Beth MD IMG DX ORDERABLES Differential, Automated (07/25/2018 10:15 AM EDT) P athologist Signature Neutrophils % 61.5 % [facility] Neutr Abs (ANC) 3.50 1.70 - [facility] 6.10 [facility] x10(3)/[facility]ORATORY Lymphocytes % 24.5 % [facility] Lymphocytes Abs 1.4 0.9 - 3.2 [facility] x10(3)/[facility] LABORATORY Monocytes % 10.0 % [facility] Monocyte Abs 0.6 0.3 - 0.9 [facility] x10(3)/[facility] LABORATORY Eosinophils % 2.5 % [facility] Eosinophils Abs 0.1 0.0 - 0.4 [facility] x10(3)/[facility] LABORATORY Basophils % 1.1 % [facility] Basophils Abs 0.1 0.0 - 0.1 [facility] x10(3)/[facility] LABORATORY Immature Gran % 0.40 % [facility] Comment: Immature granulocytes(IG's)percentage an d absolute count will include metamyelocytes, myelocytes, and promyelo cytes. Blood smears from CBCs yielding IG's will be scanned manually for concor dance. If this scan disagrees with the automated IG or if promyelocytes are not ed, a manual differential will be performed. Kirsten Gran Abs 0.02 0.00 - 0.04 x10(3)/[facility] MAR Y [facility] Specimen Anatomical Collection Method Collection Time Receive d Time (Source) Location / / Volume Laterality Blood specimen 07/25/2018 10:15 9 (specimen) AM EDT 10:31 AM EDT Resulting Agency Comment Spec In Lab Juanito Beth MD HEMATOLOGY ORDERABLES Performing Organization Address City/State/[place] [address] (ABNORMAL) Hemogram (07/25/2018 10:15 AM EDT) P athologist Signature WBC 5.7 4.0 - 9.5 [facility] x10(3)/[facility] LABORATORY RBC 4.37 4.00 - [facility] 5.21 [facility] x10(6)/[facility] LABORATORY Hemoglobin 13.4 11.7 - [facility] 15.[facility] gm/dL [facility] Hematocrit 40.5 35.7 - [facility] 45.8 % [facility] MCV 92.7 82.6 - [facility] 94.4 [facility] MCH 30.7 27.1 - [facility] 32.0 pg [facility] MCHC 33.1 31.7 - [facility] 35.0 gm/dL [facility] Platelets 400 (H) 145 - 357 [facility] x10(3)/[facility] LABORATORY RDWSD 41.6 37.0 - [facility] 46.0 [facility] LABORATORY RDWCV 12.1 11.5 - [facility] 14.1 % [facility] MPV 9.1 7.6 - 12.9 [facility] LABORATORY nRBC % Auto 0.0 % [facility] nRBC Abs Auto 0.000 0.000 - [facility] 0.000 [facility] x10(3)/[facility] LABORATORY Specimen Anatomical Collection Method Collection Time Receive d Time (Source) Location / / Volume Laterality Blood specimen 07/25/2018 10:15 9 (specimen) AM EDT 10:31 AM EDT Resulting Agency Comment Spec In Lab Juanito Beth MD HEMATOLOGY ORDERABLES Performing Organization Address City/State/[place] [address] HLA-B27 (07/25/2018 10:15 AM EDT) Component Value Ref Test Analysis Performed At Patholo gist Range Method Time Signature HLA-B27 Positive [facility] HLA-B27 HLA B27 antigen was detected. JANA Khan [facility] Approximately 8% of the normal populatio n carries the HLA B27 antigen. HLA B27 MEMORIAL is present in approximately 89% of patients with ankylosing spondylitis, 79% of HOSPITAL patients with Natali's syndrome and 42% of patients wi th juvenile rheumatoid LABORATORY arthritis. However, lacking other data, it is not diagnostic for these disorders. Method: Flow Cytometry Reference: 1. Bing DA, Bowman FD, Ni daniel Shabazz, et al: Ankylosing spondylitis and HLA-27. Lancet 1973;1:904-907 2. Louie Lyman, Malcolm KANG: HLA-B27 typing by the use of flow cytofluorometry. Clin Chem 1987;33:[id number] WBC 5.7 4.0 - JANA 9.5 [facility] x10(3)/m [facility] LABORATORY Specimen Anatomical Collection Method Collection Time Receive d Time (Source) Location / / Volume Laterality Blood specimen 07/25/2018 10:15 9 (specimen) AM EDT 10:31 AM EDT Resulting Agency Comment Spec In Lab Juanito Beth MD IMMUNOLOGY ORDERABLES Performing Organization Address City/[facility]/[place] [address] CK (07/25/2018 10:15 AM EDT) P athologist Signature CK, Total 63 0 - 160 [facility] unit/L [facility] Specimen Anatomical Collection Method Collection Time Receive d Time (Source) Location / / Volume Laterality Blood specimen 07/25/2018 10:15 9 (specimen) AM EDT 10:31 AM EDT Resulting Agency Comment Spec In Lab Juanito Beth MD CHEMISTRY ORDERABLES Performing Organization Address City/[facility]/ZIP Code Phon e Number [address] Proteinase-3 Antibody (07/25/2018 10:15 AM EDT) P athologist Signature PR3 Ab 3.1 <=20.0 [facility] unit(s) [facility] Specimen Anatomical Collection Method Collection Time Receive d Time (Source) Location / / Volume Laterality Blood specimen 07/25/2018 10:15 9 1:24 (specimen) AM EDT PM EDT Resulting Agency Comment Spec In Lab Juanito Beth MD CHEMISTRY ORDERABLES Performing Organization Address City/[facility]/ZIP Code Phon e Number [address] Myeloperoxidase Ab (07/25/2018 10:15 AM EDT) athologist Signature MPO Ab <2.0 <=20.0 [facility] Specimen Anatomical Collection Method Collection Time Receive d Time (Source) Location / / Volume Laterality Blood specimen 07/25/2018 10:15 9 1:24 (specimen) AM EDT PM EDT Resulting Agency Comment Spec In Lab Juanito Beth MD CHEMISTRY ORDERABLES Performing Organization Address City/[facility] Phon e Number [address] Cytoplasmic Neutrophilic Ab (07/25/2018 10:15 AM EDT) athologist Signature C-ANCA Negative Negative [facility] Comment: Test Performed by: [facility] [address] [place] [address] 901 P-ANCA Negative Negative [facility] Comment: Negative for cANCA and pANCA patterns by immunofluorescence. ADDITIONAL INFORMATIO N This test was developed and its performa nce characteristics determined by [facility] in a manner co nsistent with CLIA requirements. This test has not been nicole ared or approved by the U.S. Food and Drug Administration. Test Performed by: [facility] [address] [place] [address] 90 Specimen Anatomical Collection Method Collection Time Receive d Time (Source) Location / / Volume Laterality Blood specimen 07/25/2018 10:15 9 (specimen) AM EDT 12:55 PM EDT Resulting Agency Comment Spec In Lab Juanito Beth MD CHEMISTRY ORDERABLES Performing Organization Address City/[facility]/ZIP Code Phon e Number [address] Cryoglobulin (07/25/2018 10:15 AM EDT) P athologist Signature Cryoglob See Note [facility] Comment: Cryoglobulins negative at 24 and 72 hour s. Identification of cryoglobulins is depen dent upon appropriate sample handling. False negative results may occur if the proper sample handling steps are not followed. This test was developed and its performa nce characteristics determined by [facility]. It h as not been cleared or approved by the FDA. The laboratory is regulated under [place] ZAI as qualified to perform high-complexity testing. This test is us ed for clinical purposes. It should not be regarded as investigational or for re search. Specimen Anatomical Collection Method Collection Time Receive d Time (Source) Location / / Volume Laterality Blood specimen 07/25/2018 10:15 9 (specimen) AM EDT 10:21 AM EDT Resulting Agency Comment Spec In Lab Juanito Beth MD CHEMISTRY ORDERABLES Performing Organization Address City/[facility]/ZIP Code Phon e Number [address] Cyclic Citrullinated Peptide (07/25/2018 10:15 AM EDT) athologist Signature Anti-Cyc Cit <0.5 <=4.9 [facility] Specimen Anatomical Collection Method Collection Time Receive d Time (Source) Location / / Volume Laterality Blood specimen 07/25/2018 10:15 9 (specimen) AM EDT 10:31 AM EDT Resulting Agency Comment Spec In Lab Juanito Beth MD CHEMISTRY ORDERABLES Performing Organization Address City/[facility]/[place] [address] Sedimentation rate (07/25/2018 10:15 AM EDT) athologist Signature Sed Rate 6 0 - [facility] Specimen Anatomical Collection Method Collection Time Receive d Time (Source) Location / / Volume Laterality Blood specimen 07/25/2018 10:15 9 (specimen) AM EDT 10:31 AM EDT Resulting Agency Comment Spec In Lab Juanito Beth MD HEMATOLOGY ORDERABLES Performing Organization Address City/[facility]/[place] [address] (ABNORMAL) Comprehensive metabolic panel (non-fasting) (07/25/2018 10:15 AM EDT) athologist Signature Glucose Lvl 77 65 - 199 [facility] mg/dL [facility] Comment: Diabetes: >=200 mg/dL plus symp toms BUN 18 8 - 18 mg/dL [facility] Creatinine 0.66 (L) 0.70 - 1.20 mg/dL [facility] Sodium 139 135 - 145 mmol/L [facility] Potassium 4.3 3.5 - 5.0 mmol/L [facility] Comment: Please note: ??Patients with WBC >100,00 0 may have falsely elevated Potassium levels. ??For accurate Potassium quantif ication in these patients send serum separator tube (gold top) for subsequent determinations. ??Contact the Clinical Chemistry Laboratory if there are any qu estions. Chloride 100 98 - 107 mmol/L [facility] CO2 29 22 - 31 mmol/L [facility] Anion Gap 10 5 - 15 mmol/L [facility] Calcium 9.7 8.5 - 10.5 mg/dL [facility] Total Protein 7.2 6.1 - 8.0 gm/dL [facility] Albumin 4.5 3.2 - 5.2 gm/dL [facility] AST 14 0 - 30 unit/L [facility] ALT 13 0 - 30 unit/L [facility] Alk Phos 74 40 - 104 unit/L [facility] Total Bilirubin 0.2 0.2 - 1.3 mg/dL [facility] Estimated GFR 102 >=60 mL/min/1.73 m?? [facility] Comment: The eGFR was calculated using the CKD-EP I equation. As with all creatinine based estimates of kidney function, eGFR values calculated with the CKD-EPI equation are not accurate in patients wi th acute kidney failure, extremes of body mass or the acutely ill. [email or web address]nkf eGFR 118 >=60 mL/min/1.73 m?? [facility] Comment: The eGFR was calculated using the CKD-EP I equation. As with all creatinine based estimates of kidney function, eGFR values calculated with the CKD-EPI equation are not accurate in patients wi th acute kidney failure, extremes of body mass or the acutely ill. [email or web address] Specimen Anatomical Collection Method Collection Time Receive d Time (Source) Location / / Volume Laterality Blood specimen 07/25/2018 10:15 9 (specimen) AM EDT 10:31 AM EDT Resulting Agency Comment Spec In Lab Juanito Beth MD CHEMISTRY ORDERABLES Performing Organization Address City/State/[place] [address] CRP, acute inflammation (07/25/2018 10:15 AM EDT) P athologist Signature CRP 0.3 <=4.9 mg/L [facility] Specimen Anatomical Collection Method Collection Time Receive d Time (Source) Location / / Volume Laterality Blood specimen 07/25/2018 10:15 9 (specimen) AM EDT 10:31 AM EDT Resulting Agency Comment Spec In Lab Juanito Beth MD CHEMISTRY ORDERABLES Performing Organization Address City/State/[place] [address] documented in this encounter Visit Diagnoses Diagnosis Inflammatory arthropathy Arthropathy, unspecified, site unspecifi ed Pain in both feet Pain in limb Bilateral hip pain Pain in joint, pelvic region and thigh Pain in both hands Neuropathy Mononeuritis of unspecified site Inflammatory arthropathy Arthropathy, unspecified, site unspecifi ed Bilateral hip pain Pain in joint, pelvic region and thigh Pain in both feet Pain in limb Pain in both hands Neuropathy Mononeuritis of unspecified site documented in this encounter Care Teams Variety Performer Relationship Specialty Start Date End Date Mere Gonzales MD PCP - General Internal Medicine 11/02/[address] [place] [phone] documented as of this encounter
--- OUTSIDE RECORDS SUMMARY | 2021-11-28 01:56 | XMS_ITS | Encounter Summary ---
:1965 Author Organization [facility] [address] Care Team Providers Name Role Phone Mere Gonzales MD Primary Care Provider Reason for Visit Reason Onset Date Comments Follow-up 08/10/2018 MRI Encounter Details Date Type Department Care Team Description 08/10/2018 Telephone Rheumatology at [facility] Dean Mosher RN Follow-up (MRI ) [place] [address] Social History Tobacco Use Types Packs/Day Years Used Date Never Smoker Smokeless Tobacco: Never Used Sex Assigned at Date Recorded Not on file documented as of this encounter Miscellaneous Notes Telephone Encounter - Dean Mosher RN - 08/10/2018 11:30 AM EDT Heike calls to report that she has not heard back about scheduling a MRI and would like a returncall as soon as possible. documented in this encounter Plan of Treatment Not on filedocumented as of this encounter Visit Diagnoses Not on filedocumented in this encounter Care Teams Park Manager Relationship Specialty Start Date End Date Mere Gonzales MD PCP - General Internal Medicine 11/02/17 [address] [place] [address] documented as of this encounter
--- OUTSIDE RECORDS SUMMARY | 2021-11-28 01:56 | XMS_ITS | Encounter Summary ---
:1965 Author Organization [facility] Address [address] [place] [place] [address] Care Team Providers Name Role Phone Mere Gonzales MD Primary Care Provider Encounter Details Date Type Department Care Team Description 07/25/2018 Hospital Encounter XRay at [facility] Juanito Beth, Inflammatory arthropathy; [address] [place] Bilateral hip pain; [place], [place] [facility] in both fe et; [id number] Center Pain in both hands; [phone] [place], [place] Neuropathy [address] Social History Tobacco Use Types Packs/Day Years [...] Name Priority Date/Time Associated Diagnosis Comme nts XR PELVIS AND HIP 2 Routine 07/25/2018 12:21 Inflammatory Resu lts for this VIEWS BILATERAL PM EDT arthropathy procedure are in Bilateral hip pain the resul ts section. XR FOOT MIN 3 VIEWS Routine 07/25/2018 12:21 Inflammatory Resu lts for this BILAT PM EDT arthropathy procedure are in Pain in both fee t the results Bilateral hip pa in section. Pain in both tnoy ds Neuropathy documented in this encounter Results [...] please contact e number below. ? Narrative 07/25/2018 4:06 PM EDT EXAMINATION: XR [...] number below. Electronically signed by: Braeden rivera [facility] ([phone]), at 07/25/2018 4:06 PM Juanito Beth MD [...] e number below. ? Electronically signed by: Keisha Osuna [facility] ([phone]), at 07/25/2018 4:15 PM Narrative 07/25/2018 4:15 PM EDT EXAMINATION: XR [...] contact e number below. Electronically signed by: Keisha Osuna [facility] ([phone]), at 07/25/2018 4:15 PM Juanito Beth MD IMG DX ORDERABLES documented in this encounter Visit Diagnoses Diagnosis Inflammatory arthropathy Arthropathy, unspecified, site unspecifi ed Bilateral hip pain Pain in joint, pelvic region and thigh Pain in both feet Pain in limb Pain in both hands Neuropathy Mononeuritis of unspecified site documented in this encounter Care Teams Shellfish Checker Relationship Specialty Start Date End Date Mere Gonzales MD PCP - General Internal Medicine 11/02/17 [address] [place] [address] documented as of this encounter
--- OUTSIDE RECORDS SUMMARY | 2021-11-28 01:56 | XMS_ITS | Encounter Summary ---
:1965 Author Organization [facility] [place] [address] Care Team Providers Name Role Phone Mere Gonzales MD Primary Care Provider Reason for Visit Reason Onset Date Comments Follow-up 08/03/2018 Lab/ Test results Encounter Details Date Type Department Care Team Description 08/03/2018 Telephone Rheumatology at [facility] Dean Mosher, Follow-up (Lab/ Test [facility] Tom zapata RN results) [place] [address] Social History Tobacco Use Types Packs/Day Years Used Date Never Smoker Smokeless Tobacco: Never Used Sex Assigned at Date Recorded Not on file documented as of this encounter Miscellaneous Notes Telephone Encounter - Dean Mosher RN - 08/05/2018 1:19 PM EDT I spoke with Heike and she would like an MRI of her neck and low back because those are the 2 worst areas. Will ask Dr[address] Beth to order. Gabrielshe [facility] done [facility]. Telephone Encounter - Dean Mosher RN - 08/05/2018 9:47 AM EDT Juanito Beth MD sent to Dean Mosher RN Caller: Unspecified (2 days ago, 10:41 AM) ?? She is HLA b27 + which piuts her at risk for Crohns, UC, Ankylosing spondylitis, and sporiaitic arthritis. ??It does not mean she has them. ??Xrays showed no evidence of inflammatory arthritis. ??Some times we need more evidence and have to consider an MRI of a joint or US ??depends on where pain is the worst. ?? Consider setting up for follow up with US SO that is where we are at right now. ?? At this point I can make any addtioanl consideration based on the current evidence Thanks Juanito Telephone Encounter - Dean Mosher RN - 08/03/2018 12:58 PM EDT Call received from Heike asking for Dr. Beth to discuss her lab results and Xray results. documented in this encounter Plan of Treatment Not on filedocumented as of this encounter Visit Diagnoses Not on filedocumented in this encounter Care Teams Strap Cutter Relationship Specialty Start Date End Date Mere Gonzales MD PCP - General Internal Medicine 11/02/17 [address] [place] [phone] documented as of this encounter
[2021-11-28 08:22] LABS: HCT 41.4 % (36.0-46.0); HGB 13.7 g/dL (11.2-15.7); MCH 30.2 pg (27.0-33.0); MCHC 33.1 % (32.0-36.0); MCV 91 fL (80-95); MPV 8.9 fL (8.0-11.0); Platelet Count 284 10^3/uL (130-400); RBC 4.54 10^6/uL (3.93-5.22)
[2021-11-28 09:08] LABS: ALT 16 U/L (14-59); AST 9 U/L (15-37); Albumin 4.2 g/dL (3.4-5.0); Alkaline Phosphatase 79 U/L (46-116); BUN 13 mg/dL (7-18); Bilirubin, Total 0.4 mg/dL (0.2-1.0); CREATININE 0.7 mg/dL (0.55-1.02); Calcium 9.8 mg/dL (8.5-10.1); Chloride 104 mmol/L (98-107); Creatine Kinase 46 U/L (26-192); Estimated GFR 102.07 (mL/min/1.73m2); Glucose 80 mg/dL (74-106); Potassium 4.1 mmol/L (3.5-5.1); Sodium 139 mmol/L (136-145); Total Protein 7.6 g/dL (6.4-8.2)
== END 2021-11-28 01:47 | disposition home or self-care (01) ==
LOC: LBO 01:48
DX: M79.89 Other specified soft tissue disorders (principal)
CPT/HCPCS: 36415; 80053; 82550; 85027